=== PATIENT | female | born 1980 | race Caucasian/White ===

== ENCOUNTER 2017-05-25 21:25 | Emergency (ER) | payer OTHER ==
[2017-05-25] MEDS ORDERED: SODIUM CHLORIDE 0.9% 1,000 ML IV STA (21:50)
[2017-05-25] MEDS ORDERED: FAMOTIDINE 20 MG/2 ML VIAL IV STA (21:50)
[2017-05-25] MEDS ORDERED: METOCLOPRAMIDE 5 MG/ML 2 ML VIAL IVP STA (21:50)
--- NOTE | 2017-05-25 21:54 | ED ---
Abdominal Pain HPI - General Chief Complaint: Abdominal Pain Stated Complaint: Vomiting/Abd Pain Time Seen by Provider: 05/25/17 21:38 Source: patient Mode of arrival: wheelchair Limitations: no limitations - History of Present Illness Initial Comments: She is a 37-year-old woman who states she has a history of intermittent gastroparesis and presents because she believes this is flaring up again. She states that things started around 8 this morning when she began vomiting. She then also started having some periumbilical pain that is somewhat cramping, somewhat burning. She has had multiple rounds of vomiting. She states that she usually takes Reglan and some other medications that she was not able to remember at the moment. She states she has been out of medication for about 3 months as she doesn't have insurance and hasn't been able see the physician. Patient denies any hematemesis. Denies change in bowel movements or urination. States that symptoms are identical to her previous flareups. MD Complaint: abdominal pain Onset/Timin -: days(s) Location: periumbilical Radiation: none Severity: moderate Quality: cramping, burning Consistency: constant Improves With: nothing Worsens With: nothing Associated Symptoms: nausea, vomiting - Related Data Previous Rx's Medication Instructions Recorded Dicyclomine [Bentyl] 20 mg PO QID #15 tablet 05/26/17 Metoclopramide [Reglan] 10 mg PO Q6H PRN #16 tab 05/26/17 Allergies Allergy/AdvReac Type Severity Reaction Status Date / Time No Known Allergies Allergy Verified 05/25/17 21:57 Review of Systems ROS Statement: Those systems with pertinent positive or pertinent negative responses have been documented in the HPI. ROS Other: All systems not noted in ROS Statement are negative. Constitutional: Denies: fever, chills Respiratory: Denies: cough, dyspnea Cardiovascular: Denies: chest pain, palpitations, edema Gastrointestinal: Reports: abdominal pain, nausea, vomiting. Denies: diarrhea, constipation, hematemesis, melena, hematochezia Genitourinary: Denies: dysuria, hematuria Musculoskeletal: Denies: back pain Skin: Denies: rash Neurological: Denies: headache, weakness, numbness Past Medical History Past Medical History: GERD/Reflux, Hyperlipidemia, Musculoskeletal Disorder, Neurologic Disorder Additional Past Medical History / Comment(s): herniated disc, gastritis, gastroparesis, migraines, esophageal tears, History of Any Multi-Drug Resistant Organisms: None Reported Past Surgical History: Appendectomy, Tubal Ligation Additional Past Surgical History / Comment(s): Appendectomy, tubal ligation, EGD. Past Psychological History: Anxiety, Depression Smoking Status: Current every day smoker Past Alcohol Use History: None Reported Past Drug Use History: Marijuana - Past Family History Mother Family Medical History: Cancer (Mother is 60-year-old has history of breast cancer and hypothyroidism.) Father Family Medical History: No Reported History (Father at age 54 from alcoholism and also has bipolar disorder.) Brother(s) Family Medical History: Neurologic Disorder (Patient has 2 brothers one of them with brain surgery.) Sister(s) Family Medical History: No Reported History (Patient has 2 sisters and one half- sister who was involved in a motor vehicle accident) Son(s) Family Medical History: No Reported History (Patient has 2 sons no major medical problems) Daughter(s) Family Medical History: No Reported History (Patient has one daughter no major medical problems) General Exam Limitations: no limitations General appearance: alert, anxious Head exam: Present: atraumatic, normocephalic Eye exam: Present: normal appearance. Absent: scleral icterus, conjunctival injection ENT exam: Present: normal oropharynx Neck exam: Present: normal inspection Respiratory exam: Present: normal lung sounds bilaterally. Absent: respiratory distress, wheezes, rales, rhonchi, stridor Cardiovascular Exam: Present: regular rate, normal rhythm, normal heart sounds. Absent: systolic murmur, diastolic murmur, rubs, gallop GI/Abdominal exam: Present: soft. Absent: distended, tenderness, guarding, rebound, rigid, mass, pulsatile mass, hernia Extremities exam: Present: normal inspection, normal capillary refill. Absent: pedal edema, calf tenderness Back exam: Present: normal inspection. Absent: CVA tenderness (R), CVA tenderness (L) Skin exam: Present: warm, dry, intact, normal color. Absent: rash, cyanosis, diaphoretic, erythema, petechiae, pallor, mottled Course Vital Signs 05/25/17 05/25/17 05/26/17 21:30 23:14 00:17 Temperature 97.1 F L 97.1 F L 97 F L Pulse Rate 70 60 78 Respiratory 24 18 18 Rate Blood Pressure 116/81 137/75 134/75 O2 Sat by Pulse 98 96 95 Oximetry Medical Decision Making - Lab Data Result diagrams: 05/25/17 21:50 05/25/17 21:50 Lab Results 05/25/17 05/25/17 05/25/17 Range/Units 21:50 21:50 22:30 WBC 9.5 (3.8-10.6) k/uL RBC 4.13 (3.80-5.40) m/uL Hgb 14.2 (11.4-16.0) gm/dL Hct 39.6 (34.0-46.0) % MCV 96.0 (80.0-100.0) fL MCH 34.4 (25.0-35.0) pg MCHC 35.8 (31.0-37.0) g/dL RDW 12.2 (11.5-15.5) % Plt Count 385 (150-450) k/uL Neutrophils % 84 % Lymphocytes % 12 % Monocytes % 3 % Eosinophils % 0 % Basophils % 0 % Neutrophils # 8.0 H (1.3-7.7) k/uL Lymphocytes # 1.1 (1.0-4.8) k/uL Monocytes # 0.3 (0-1.0) k/uL Eosinophils # 0.0 (0-0.7) k/uL Basophils # 0.0 (0-0.2) k/uL Sodium 143 (137-145) mmol/L Potassium 3.8 (3.5-5.1) mmol/L Chloride 107 (98-107) mmol/L Carbon Dioxide 20 L (22-30) mmol/L Anion Gap 16 mmol/L BUN 7 (7-17) mg/dL Creatinine 0.57 (0.52-1.04) mg/dL Est GFR (MDRD) Af Amer >60 (>60 ml/min/1.73 sqM) Est GFR (MDRD) Non-Af >60 (>60 ml/min/1.73 sqM) Glucose 158 H (74-99) mg/dL Calcium 10.4 H (8.4-10.2) mg/dL Total Bilirubin 1.0 (0.2-1.3) mg/dL AST 17 (14-36) U/L ALT 15 (9-52) U/L Alkaline Phosphatase 80 (38-126) U/L Total Protein 8.1 (6.3-8.2) g/dL Albumin 4.9 (3.5-5.0) g/dL Amylase 40 (30-110) U/L Lipase 26 (23-300) U/L Urine Color Urine Appearance (Clear) Urine pH (5.0-8.0) Ur Specific [place] (1.001-1.035) Urine Protein (Negative) Urine Glucose (UA) (Negative) Urine Ketones (Negative) Urine Blood (Negative) Urine Nitrite (Negative) Urine Bilirubin (Negative) Urine Urobilinogen (<2.0) mg/dL Ur Leukocyte Esterase (Negative) Urine RBC (0-5) /hpf Urine WBC (0-5) /hpf Ur Squamous Epith Cells (0-4) /hpf Urine Bacteria (None) /hpf Granular Casts (0) /lpf Urine Mucus (None) /hpf Urine HCG, Qual Not Detected (Not Detectd) 05/25/17 Range/Units 22:30 WBC (3.8-10.6) k/uL RBC (3.80-5.40) m/uL Hgb (11.4-16.0) gm/dL Hct (34.0-46.0) % MCV (80.0-100.0) fL MCH (25.0-35.0) pg MCHC (31.0-37.0) g/dL RDW (11.5-15.5) % Plt Count (150-450) k/uL Neutrophils % % Lymphocytes % % Monocytes % % Eosinophils % % Basophils % % Neutrophils # (1.3-7.7) k/uL Lymphocytes # (1.0-4.8) k/uL Monocytes # (0-1.0) k/uL Eosinophils # (0-0.7) k/uL Basophils # (0-0.2) k/uL Sodium (137-145) mmol/L Potassium (3.5-5.1) mmol/L Chloride (98-107) mmol/L Carbon Dioxide (22-30) mmol/L Anion Gap mmol/L BUN (7-17) mg/dL Creatinine (0.52-1.04) mg/dL Est GFR (MDRD) Af Amer (>60 ml/min/1.73 sqM) Est GFR (MDRD) Non-Af (>60 ml/min/1.73 sqM) Glucose (74-99) mg/dL Calcium (8.4-10.2) mg/dL Total Bilirubin (0.2-1.3) mg/dL AST (14-36) U/L ALT (9-52) U/L Alkaline Phosphatase (38-126) U/L Total Protein (6.3-8.2) g/dL Albumin (3.5-5.0) g/dL Amylase (30-110) U/L Lipase (23-300) U/L Urine Color Yellow Urine Appearance Turbid H (Clear) Urine pH 6.0 (5.0-8.0) Ur Specific [place] 1.024 (1.001-1.035) Urine Protein 2+ H (Negative) Urine Glucose (UA) Trace H (Negative) Urine Ketones 4+ H (Negative) Urine Blood Small H (Negative) Urine Nitrite Negative (Negative) Urine Bilirubin Negative (Negative) Urine Urobilinogen 3.0 (<2.0) mg/dL Ur Leukocyte Esterase Negative (Negative) Urine RBC 16 H (0-5) /hpf Urine WBC 4 (0-5) /hpf Ur Squamous Epith Cells 51 H (0-4) /hpf Urine Bacteria Rare H (None) /hpf Granular Casts 46 (0) /lpf Urine Mucus Many H (None) /hpf Urine HCG, Qual (Not Detectd) Disposition Clinical Impression: Abdominal pain, Gastroparesis Disposition: HOME SELF-CARE Condition: Good Instructions: Gastroparesis (ED) Prescriptions: Dicyclomine [Bentyl] 20 mg PO QID #15 tablet Metoclopramide [Reglan] 10 mg PO Q6H PRN #16 tab PRN Reason: Vomiting Referrals: None,Stated [Primary Care Provider] - 1-2 days Javid Marcus MD [STAFF PHYSICIAN] - 1-2 days
[2017-05-25 22:06] LABS: Basophils % (A) 0 %; CH 33.7; CHCM 35.3; Eosinophils % (A) 0 %; HCT 39.6 % (34.0-46.0); HDW 2.21; HGB 14.2 gm/dL (11.4-16.0); Luc # (Auto) 0.07; Luc % (Auto) 1; Lymphocytes # (A) 1.1 k/uL (1.0-4.8); Lymphocytes % (A) 12 %; MCH 34.4 pg (25.0-35.0); MCHC 35.8 g/dL (31.0-37.0); Mean Platelet Volume 7.5; Monocytes # (A) 0.3 k/uL (0-1.0); Monocytes % (A) 3 %; Neutrophils % (A) 84 %; RBC 4.13 m/uL (3.80-5.40); RDW 12.2 % (11.5-15.5); WBC 9.5 k/uL (3.8-10.6); WBC (Perox) 9.15
[2017-05-25 22:12] LABS: ALT 15 U/L (9-52); AST 17 U/L (14-36); Alkaline Phosphatase 80 U/L (38-126); Amylase 40 U/L (30-110); Anion Gap 16 mmol/L; Blood Urea Nitrogen 7 mg/dL (7-17); Calcium 10.4 mg/dL (8.4-10.2); Carbon Dioxide 20 mmol/L (22-30); Chloride 107 mmol/L (98-107); Glucose 158 mg/dL (74-99); Non-African American GFR(MDRD) >60 (>60 ml/min/1.73 sqM); Potassium 3.8 mmol/L (3.5-5.1); Sodium 143 mmol/L (137-145); Total Protein 8.1 g/dL (6.3-8.2)
--- NOTE | 2017-05-25 22:27 | XR ---
Exam: XR KUB History: Abdominal pain. Comparison: None provided. Technique: 2 views. Findings: No dilated loop of bowel to suggest obstruction. Mild amount of gas scattered throughout the GI tract. No abnormal soft tissue calcification appreciated. Impression: Nonobstructive bowel gas pattern.
[2017-05-25] MEDS ORDERED: ONDANSETRON 4 MG/2 ML VIAL IVP STA (22:38)
[2017-05-25] MEDS ORDERED: MORPHINE SULFATE 4 MG/ML SYRINGE IV STA (22:38)
[2017-05-25 22:43] LABS: Appearance,Urine Turbid (Clear); Bacteria,Urine Rare /hpf; Bilirubin,Urine Negative (Negative); Glucose,Urine (UA) Trace (Negative); Granular Casts,Urine 46 /lpf (0); Ketones,Urine 4+ (Negative); Leukocyte Esterase,Urine Negative (Negative); Mucus,Urine Many /hpf; Nitrite,Urine Negative (Negative); Particle Count 34093; Protein,Urine 2+ (Negative); RBC,Urine 16 /hpf (0-5); Specific Gravity,Urine 1.024 (1.001-1.035); Squamous Epithelial Cell,Urine 51 /hpf (0-4); UA Billing (MACRO vs. MICRO) MICRO; WBC,Urine 4 /hpf (0-5)
[2017-05-25] MEDS ORDERED: SODIUM CHLORIDE 0.9% 500 ML IV STA (23:08)
[2017-05-25 23:14] VITALS: RESP 18
[2017-05-26] MEDS ORDERED: METOCLOPRAMIDE 5 MG/ML 2 ML VIAL IVP STA (00:03)
[2017-05-26] MEDS ORDERED: SODIUM CHLORIDE 0.9% 500 ML IV STA (00:03)
[2017-05-26] MEDS ORDERED: MORPHINE SULFATE 4 MG/ML SYRINGE IV STA (00:03)
[2017-05-26 01:29] VITALS: BP 118/69; PULSE 61; TEMP 97.7
== END 2017-05-26 01:27 | disposition home or self-care (01) ==
LOC: EC 21:25
DX: K31.84 Gastroparesis (principal); R11.2 Nausea with vomiting, unspecified; F17.200 Nicotine dependence, unspecified, uncomplicated
CPT/HCPCS: 36415; 80053; 82150; 83690; 85025; 81001; 81025; 74000; 99284; 96374; 96375 ×3; 96376 ×2; 96360; 96361 ×3; J2270 ×2; J2765 ×2; J2405

== ENCOUNTER 2018-07-17 14:52 | Emergency (ER) | payer OTHER ==
[2018-07-17] MEDS ORDERED: ONDANSETRON 4 MG/2 ML VIAL IVP STA ×2 (15:04→17:17)
[2018-07-17] MEDS ORDERED: SODIUM CHLORIDE 0.9% 1,000 ML IV STA (15:04)
[2018-07-17] MEDS ORDERED: METOCLOPRAMIDE 5 MG/ML 2 ML VIAL IVP STA ×2 (15:12→19:56)
[2018-07-17] MEDS ORDERED: diphenhydrAMINE 50 MG/ML 1 ML VIAL IVP STA (15:12)
[2018-07-17] MEDS ORDERED: HYDROmorphone 0.5 MG/0.5 ML SYRINGE IVP STA (15:12)
--- NOTE | 2018-07-17 15:14 | ED ---
Abdominal Pain HPI - General Chief Complaint: Abdominal Pain Stated Complaint: abd pain Time Seen by Provider: 07/17/18 15:04 Source: patient, RN notes reviewed Mode of arrival: ambulatory Limitations: no limitations - History of Present Illness Initial Comments: 38-year-old female presents emergency Department with chief complaint abdominal pain, nausea vomiting. Patient has a history of this visit gastroparesis and recurrent abdominal pain. Patient states that she does not have insurance currently so she has not seen her pickle maker. Patient states that she' s not any current medications. Denies fevers or chills. She has had some loose stool this morning which is uncommon for her. She denies any melena, hematochezia, hematemesis or coffee-ground emesis. She has no dysuria no hematuria patient's had a prior tubal ligation, appendectomy. Patient states this feels like her typical problem. - Related Data Previous Rx's Medication Instructions Recorded Dicyclomine [Bentyl] 20 mg PO QID #15 tablet 05/26/17 Metoclopramide [Reglan] 10 mg PO Q6H PRN #16 tab 07/17/18 Allergies Allergy/AdvReac Type Severity Reaction Status Date / Time sulfamethoxazole Allergy Unknown Verified 07/17/18 15:00 [From Bactrim] trimethoprim [From Bactrim] Allergy Unknown Verified 07/17/18 15:00 Review of Systems ROS Statement: Those systems with pertinent positive or pertinent negative responses have been documented in the HPI. ROS Other: All systems not noted in ROS Statement are negative. Past Medical History Past Medical History: GERD/Reflux, Hyperlipidemia, Musculoskeletal Disorder, Neurologic Disorder Additional Past Medical History / Comment(s): herniated disc, gastritis, gastroparesis, migraines, esophageal tears, History of Any Multi-Drug Resistant Organisms: None Reported Past Surgical History: Appendectomy, Tubal Ligation Additional Past Surgical History / Comment(s): Appendectomy, tubal ligation, EGD. Past Psychological History: Anxiety, Depression Smoking Status: Current every day smoker Past Alcohol Use History: None Reported Past Drug Use History: Marijuana - Past Family History Mother Family Medical History: Cancer (Mother is 60-year-old has history of breast cancer and hypothyroidism.) Father Family Medical History: No Reported History (Father at age 54 from alcoholism and also has bipolar disorder.) Brother(s) Family Medical History: Neurologic Disorder (Patient has 2 brothers one of them with brain surgery.) Sister(s) Family Medical History: No Reported History (Patient has 2 sisters and one half- sister who was involved in a motor vehicle accident) Son(s) Family Medical History: No Reported History (Patient has 2 sons no major medical problems) Daughter(s) Family Medical History: No Reported History (Patient has one daughter no major medical problems) General Exam Limitations: no limitations General appearance: alert, in no apparent distress Head exam: Present: atraumatic, normocephalic, normal inspection Eye exam: Present: normal appearance, PERRL, EOMI. Absent: scleral icterus, conjunctival injection, periorbital swelling Respiratory exam: Present: normal lung sounds bilaterally. Absent: respiratory distress, wheezes, rales, rhonchi, stridor Cardiovascular Exam: Present: regular rate, normal rhythm, normal heart sounds. Absent: systolic murmur, diastolic murmur, rubs, gallop, clicks GI/Abdominal exam: Present: soft, tenderness (Moderate midabdominal tenderness) , normal bowel sounds. Absent: distended, guarding, rebound, rigid Back exam: Absent: CVA tenderness (R), CVA tenderness (L) Skin exam: Present: warm, dry, intact, normal color. Absent: rash Course Vital Signs 07/17/18 07/17/18 07/17/18 14:58 15:44 16:33 Temperature 97.7 F Pulse Rate 100 66 74 Respiratory 18 18 18 Rate Blood Pressure 126/83 127/74 114/57 O2 Sat by Pulse 96 99 98 Oximetry Medical Decision Making - Medical Decision Making 38-year-old female presented from for abdominal pain nausea vomiting. Patient has not vomited in over 2 hours she is given antiemetics, IV fluids. She does have some mild discomfort. Abdomen is soft. Patient will be discharged with Zofran starter pack and Reglan prescription. Return parameters were discussed. - Lab Data Result diagrams: 07/17/18 15:17 07/17/18 15:17 Lab Results 07/17/18 07/17/18 07/17/18 Range/Units 15:17 15:17 16:42 WBC 9.0 (3.8-10.6) k/uL RBC 4.36 (3.80-5.40) m/uL Hgb 14.0 (11.4-16.0) gm/dL Hct 42.2 (34.0-46.0) % MCV 96.6 (80.0-100.0) fL MCH 32.2 (25.0-35.0) pg MCHC 33.3 (31.0-37.0) g/dL RDW 12.2 (11.5-15.5) % Plt Count 460 H (150-450) k/uL Neutrophils % 82 % Lymphocytes % 13 % Monocytes % 3 % Eosinophils % 1 % Basophils % 0 % Neutrophils # 7.4 (1.3-7.7) k/uL Lymphocytes # 1.2 (1.0-4.8) k/uL Monocytes # 0.3 (0-1.0) k/uL Eosinophils # 0.1 (0-0.7) k/uL Basophils # 0.0 (0-0.2) k/uL Sodium 142 (137-145) mmol/L Potassium 4.1 (3.5-5.1) mmol/L Chloride 108 H (98-107) mmol/L Carbon Dioxide 19 L (22-30) mmol/L Anion Gap 15 mmol/L BUN 10 (7-17) mg/dL Creatinine 0.65 (0.52-1.04) mg/dL Est GFR (CKD-EPI)AfAm >90 (>60 ml/min/1.73 sqM) Est GFR (CKD-EPI)NonAf >90 (>60 ml/min/1.73 sqM) Glucose 135 H (74-99) mg/dL Calcium 10.3 H (8.4-10.2) mg/dL Total Bilirubin 0.6 (0.2-1.3) mg/dL AST 19 (14-36) U/L ALT 26 (9-52) U/L Alkaline Phosphatase 70 (38-126) U/L Total Protein 8.2 (6.3-8.2) g/dL Albumin 4.8 (3.5-5.0) g/dL Amylase 77 (30-110) U/L Lipase 41 (23-300) U/L Urine Color Light [place] Urine Appearance Turbid H (Clear) Urine pH 5.5 (5.0-8.0) Ur Specific [place] 1.025 (1.001-1.035) Urine Protein 1+ H (Negative) Urine Glucose (UA) Trace H (Negative) Urine Ketones 1+ H (Negative) Urine Blood Small H (Negative) Urine Nitrite Negative (Negative) Urine Bilirubin Negative (Negative) Urine Urobilinogen 2.0 (<2.0) mg/dL Ur Leukocyte Esterase Negative (Negative) Urine RBC 15 H (0-5) /hpf Urine WBC 2 (0-5) /hpf Ur Squamous Epith Cells 3 (0-4) /hpf Amorphous Sediment Moderate H (None) /hpf Urine Bacteria Rare H (None) /hpf Urine Mucus Many H (None) /hpf Disposition Clinical Impression: Abdominal pain, Nausea & vomiting Disposition: HOME SELF-CARE Condition: Stable Instructions: Abdominal Pain (ED) Additional Instructions: Please return to the Emergency Department if symptoms worsen or any other concerns. Prescriptions: Metoclopramide [Reglan] 10 mg PO Q6H PRN #16 tab PRN Reason: Vomiting Is patient prescribed a controlled substance at d/c from ED?: No Referrals: Lit Awad MD [STAFF PHYSICIAN] - 1-2 days
[2018-07-17 15:48] LABS: Basophils % (A) 0 %; Eosinophils # (A) 0.1 k/uL (0-0.7); Eosinophils % (A) 1 %; HCT 42.2 % (34.0-46.0); Lymphocytes # (A) 1.2 k/uL (1.0-4.8); Lymphocytes % (A) 13 %; MCH 32.2 pg (25.0-35.0); MCHC 33.3 g/dL (31.0-37.0); MCV 96.6 fL (80.0-100.0); Mean Platelet Volume 6.8; Monocytes # (A) 0.3 k/uL (0-1.0); Monocytes % (A) 3 %; Neutrophils # (A) 7.4 k/uL (1.3-7.7); Neutrophils % (A) 82 %; Platelet Count 460 k/uL (150-450); RBC 4.36 m/uL (3.80-5.40); RDW 12.2 % (11.5-15.5)
[2018-07-17 15:57] LABS: ALT 26 U/L (9-52); AST 19 U/L (14-36); Albumin 4.8 g/dL (3.5-5.0); Alkaline Phosphatase 70 U/L (38-126); Amylase 77 U/L (30-110); Anion Gap 15 mmol/L; Blood Urea Nitrogen 10 mg/dL (7-17); Calcium 10.3 mg/dL (8.4-10.2); Carbon Dioxide 19 mmol/L (22-30); Chloride 108 mmol/L (98-107); Glucose 135 mg/dL (74-99); Lipase 41 U/L (23-300); Potassium 4.1 mmol/L (3.5-5.1); Sodium 142 mmol/L (137-145); Total Bilirubin 0.6 mg/dL (0.2-1.3); Total Protein 8.2 g/dL (6.3-8.2)
--- NOTE | 2018-07-17 16:58 | XR ---
Abdomen HISTORY: Pain and vomiting Frontal view of the abdomen correlated to prior abdomen 05/25/2017 There is no evident bowel obstruction or pneumoperitoneum, limited for evaluation. Lung bases are not included on the exam. There may be some liver enlargement. No pathologic calcification. IMPRESSION: Exam is limited technically. Nonobstructive bowel gas pattern. Follow-up as indicated.
[2018-07-17 17:04] LABS: Amorphous Sediment,Urine Moderate /hpf; Appearance,Urine Turbid (Clear); Bacteria,Urine Rare /hpf; Bilirubin,Urine Negative (Negative); Blood,Urine Small (Negative); Color,Urine Light Orange; Glucose,Urine (UA) Trace (Negative); Ketones,Urine 1+ (Negative); Leukocyte Esterase,Urine Negative (Negative); Mucus,Urine Many /hpf; Nitrite,Urine Negative (Negative); PH, Urine 5.5 (5.0-8.0); Protein,Urine 1+ (Negative); RBC,Urine 15 /hpf (0-5); Specific Gravity,Urine 1.025 (1.001-1.035); Squamous Epithelial Cell,Urine 3 /hpf (0-4); WBC,Urine 2 /hpf (0-5)
[2018-07-17] MEDS ORDERED: KETOROLAC 30 MG/ML 1 ML VIAL IVP STA (17:17)
[2018-07-17] MEDS ORDERED: SODIUM CHLORIDE 0.9% 1,000 ML IV ONE (17:52)
[2018-07-17] MEDS ORDERED: ONDANSETRON 4 MG ODT STARTER PACK 2 TAB BTL PO STA (18:14)
[2018-07-17 20:14] VITALS: BP 119/59; PULSE 89; RESP 18; TEMP 98.2
== END 2018-07-17 20:14 | disposition home or self-care (01) ==
LOC: EC 14:52
DX: R10.9 Unspecified abdominal pain (principal); R11.2 Nausea with vomiting, unspecified; F17.200 Nicotine dependence, unspecified, uncomplicated; Z87.19 Personal history of other diseases of the digestive system; Z90.49 Acquired absence of other specified parts of digestive tract; Z98.51 Tubal ligation status; Z88.1 Allergy status to other antibiotic agents; Z88.2 Allergy status to sulfonamides
CPT/HCPCS: 36415; 80053; 82150; 83690; 85025; 81001; 74018; 99284; 96374; 96375 ×4; 96376; 96361 ×2; J1200; J2765; J2405; J1885; S0119; J1170

== ENCOUNTER 2018-11-16 15:11 | Emergency (ER) | payer OTHER ==
[2018-11-16] MEDS ORDERED: SODIUM CHLORIDE 0.9% 1,000 ML IV STA (15:24)
[2018-11-16] MEDS ORDERED: ONDANSETRON 4 MG/2 ML VIAL IVP STA (15:24)
[2018-11-16] MEDS ORDERED: MORPHINE SULFATE 4 MG/ML SYRINGE IV STA (15:24)
[2018-11-16] MEDS ORDERED: LORazepam 2 MG/ML INJ IV STA (15:24)
[2018-11-16] MEDS ORDERED: FAMOTIDINE 20 MG/2 ML VIAL IV STA (15:25)
--- NOTE | 2018-11-16 15:27 | ED ---
Abdominal Pain HPI - General Chief Complaint: Abdominal Pain Stated Complaint: VOMITING Time Seen by Provider: 11/16/18 15:17 Source: patient Mode of arrival: ambulatory Limitations: no limitations - History of Present Illness Initial Comments: 38-year-old female patient with history significant for gastroparesis, gastritis , and acid reflux presents to the emergency department today for complaints of upper abdominal pain and vomiting. Patient states symptoms started around 7:00 this morning. She states that she has had 4 episodes of diarrhea. Denies any hematemesis. States her pain is located to her midepigastric region is quite severe in nature. Denies any radiation of the pain to her back. Denies any fevers or chills with this. Denies any sick contacts or recent travel. Denies any chest pain or shortness of breath. Patient denies any recent rash, fever, chills, numbness, tingling, dizziness, weakness, hematuria, dysuria, urinary urgency, urinary frequency, headache, visual changes, or any other complaints. - Related Data Previous Rx's Medication Instructions Recorded Dicyclomine [Bentyl] 20 mg PO QID #15 tablet 05/26/17 Metoclopramide [Reglan] 10 mg PO Q6H PRN #16 tab 07/17/18 Allergies Allergy/AdvReac Type Severity Reaction Status Date / Time sulfamethoxazole Allergy Unknown Verified 11/16/18 15:13 [From Bactrim] trimethoprim [From Bactrim] Allergy Unknown Verified 11/16/18 15:13 Review of Systems ROS Statement: Those systems with pertinent positive or pertinent negative responses have been documented in the HPI. ROS Other: All systems not noted in ROS Statement are negative. Past Medical History Past Medical History: GERD/Reflux, Hyperlipidemia, Musculoskeletal Disorder, Neurologic Disorder Additional Past Medical History / Comment(s): herniated disc, gastritis, gastroparesis, migraines, esophageal tears, History of Any Multi-Drug Resistant Organisms: None Reported Past Surgical History: Appendectomy, Tubal Ligation Additional Past Surgical History / Comment(s): Appendectomy, tubal ligation, EGD. Past Psychological History: Anxiety, Depression Smoking Status: Current every day smoker Past Alcohol Use History: None Reported Past Drug Use History: Marijuana - Past Family History Mother Family Medical History: Cancer (Mother is 60-year-old has history of breast cancer and hypothyroidism.) Father Family Medical History: No Reported History (Father at age 54 from alcoholism and also has bipolar disorder.) Brother(s) Family Medical History: Neurologic Disorder (Patient has 2 brothers one of them with brain surgery.) Sister(s) Family Medical History: No Reported History (Patient has 2 sisters and one half- sister who was involved in a motor vehicle accident) Son(s) Family Medical History: No Reported History (Patient has 2 sons no major medical problems) Daughter(s) Family Medical History: No Reported History (Patient has one daughter no major medical problems) General Exam Limitations: no limitations General appearance: alert, in no apparent distress, other (Physical well- developed, well-nourished adult female patient in no acute distress. Vital signs upon presentation are temperature 98.0F, pulse 85, respirations 18, blood pressure 135/86, pulse ox 97% on room air.) Eye exam: Present: normal appearance, PERRL, EOMI. Absent: scleral icterus, conjunctival injection, periorbital swelling ENT exam: Present: normal exam, normal oropharynx, mucous membranes moist Respiratory exam: Present: normal lung sounds bilaterally. Absent: respiratory distress, wheezes, rales, rhonchi, stridor Cardiovascular Exam: Present: regular rate, normal rhythm, normal heart sounds. Absent: systolic murmur, diastolic murmur, rubs, gallop, clicks GI/Abdominal exam: Present: soft, tenderness (Midepigastric tenderness), normal bowel sounds. Absent: distended, guarding, rebound, rigid Neurological exam: Present: alert, oriented X3, CN II-XII intact Psychiatric exam: Present: normal affect, normal mood Skin exam: Present: warm, dry, intact, normal color. Absent: rash Course Vital Signs 11/16/18 11/16/18 11/16/18 15:14 17:00 17:50 Temperature 98 F 98.7 F Pulse Rate 85 81 Respiratory 18 16 Rate Blood Pressure 135/86 124/78 120/81 O2 Sat by Pulse 97 95 94 L Oximetry 11/16/18 11/16/18 18:03 19:59 Temperature 97.6 F Pulse Rate 61 71 Respiratory 16 18 Rate Blood Pressure 148/89 130/77 O2 Sat by Pulse 99 98 Oximetry Medical Decision Making - Medical Decision Making 19-year-old female patient presents past medical history significant for chronic abdominal pain, gastroparesis, and gastritis presented to the emergency department today for evaluation of midepigastric abdominal pain and vomiting. Physical examination did reveal some midepigastric tenderness. Patient reports that she does have frequent episodes like this last one was about a month ago. Patient states that she has been to other hospitals for similar symptoms and has had ultrasound and CAT scans and they are never able to find anything. Patient states usually receives medication and is discharged. Labs reviewed and were unremarkable. KUB x-ray of the abdomen showed no acute intra- abdominal process. Patient was given both antiemetic and pain medications here in the department. Upon reevaluation states she is feeling better. She will be discharged home at this time to follow-up with her primary care physician or organ recovery coordinator for further evaluation. She is instructed to start with clear liquid diet and advance as tolerated. Return parameters were discussed in detail. She verbalizes understanding and agrees with this plan. - Lab Data Result diagrams: 11/16/18 16:04 11/16/18 16:04 Lab Results 11/16/18 11/16/18 11/16/18 Range/Units 16:00 16:04 16:04 WBC 9.0 (3.8-10.6) k/uL RBC 4.44 (3.80-5.40) m/uL Hgb 14.3 (11.4-16.0) gm/dL Hct 43.5 (34.0-46.0) % MCV 98.1 (80.0-100.0) fL MCH 32.3 (25.0-35.0) pg MCHC 32.9 (31.0-37.0) g/dL RDW 12.2 (11.5-15.5) % Plt Count 386 (150-450) k/uL Neutrophils % 77 % Lymphocytes % 17 % Monocytes % 4 % Eosinophils % 1 % Basophils % 0 % Neutrophils # 6.9 (1.3-7.7) k/uL Lymphocytes # 1.5 (1.0-4.8) k/uL Monocytes # 0.4 (0-1.0) k/uL Eosinophils # 0.1 (0-0.7) k/uL Basophils # 0.0 (0-0.2) k/uL Sodium 144 (137-145) mmol/L Potassium 4.3 (3.5-5.1) mmol/L Chloride 109 H (98-107) mmol/L Carbon Dioxide 20 L (22-30) mmol/L Anion Gap 15 mmol/L BUN 8 (7-17) mg/dL Creatinine 0.61 (0.52-1.04) mg/dL Est GFR (CKD-EPI)AfAm >90 (>60 ml/min/1.73 sqM) Est GFR (CKD-EPI)NonAf >90 (>60 ml/min/1.73 sqM) Glucose 122 H (74-99) mg/dL Calcium 10.2 (8.4-10.2) mg/dL Total Bilirubin 0.7 (0.2-1.3) mg/dL AST 21 (14-36) U/L ALT 18 (9-52) U/L Alkaline Phosphatase 68 (38-126) U/L Total Protein 8.2 (6.3-8.2) g/dL Albumin 4.7 (3.5-5.0) g/dL Amylase 59 (30-110) U/L Lipase 45 (23-300) U/L Urine Color Yellow Urine Appearance Cloudy H (Clear) Urine pH 6.0 (5.0-8.0) Ur Specific [place] 1.029 (1.001-1.035) Urine Protein 1+ H (Negative) Urine Glucose (UA) Negative (Negative) Urine Ketones 2+ H (Negative) Urine Blood Small H (Negative) Urine Nitrite Negative (Negative) Urine Bilirubin Negative (Negative) Urine Urobilinogen 2.0 (<2.0) mg/dL Ur Leukocyte Esterase Negative (Negative) Urine RBC 17 H (0-5) /hpf Urine WBC 3 (0-5) /hpf Ur Squamous Epith Cells 20 H (0-4) /hpf Urine Mucus Many H (None) /hpf - Radiology Data Radiology results: report reviewed, image reviewed Two-view x-ray of the abdomen is obtained. There is no sign of intestinal obstruction or pneumoperitoneum. Fecal pattern is normal. Lung bases are clear. There are no pathologic calcifications over the kidneys. There is no sign of a mass. Impression by Dr. Powell shows nonacute abdomen with no change. Disposition Clinical Impression: Chronic abdominal pain, Chronic vomiting Disposition: HOME SELF-CARE Condition: Good Instructions: Acute Nausea and Vomiting (ED), Abdominal Pain (ED) Additional Instructions: Start with clear liquid diet and advance as tolerated. Take all medications as directed for symptom control. Follow-up with your primary care physician for recheck in 1-2 days. Return immediately for any new, worsening, or concerning symptoms per Is patient prescribed a controlled substance at d/c from ED?: No Referrals: None,Stated [Primary Care Provider] - 1-2 days Time of Disposition: 19:16
[2018-11-16 16:23] LABS: Basophils % (A) 0 %; Eosinophils # (A) 0.1 k/uL (0-0.7); Eosinophils % (A) 1 %; HCT 43.5 % (34.0-46.0); HGB 14.3 gm/dL (11.4-16.0); Lymphocytes # (A) 1.5 k/uL (1.0-4.8); Lymphocytes % (A) 17 %; MCH 32.3 pg (25.0-35.0); MCHC 32.9 g/dL (31.0-37.0); MCV 98.1 fL (80.0-100.0); Mean Platelet Volume 7.1; Monocytes # (A) 0.4 k/uL (0-1.0); Monocytes % (A) 4 %; Neutrophils # (A) 6.9 k/uL (1.3-7.7); Neutrophils % (A) 77 %; Platelet Count 386 k/uL (150-450); RBC 4.44 m/uL (3.80-5.40); RDW 12.2 % (11.5-15.5)
[2018-11-16 16:29] LABS: Appearance,Urine Cloudy (Clear); Bilirubin,Urine Negative (Negative); Blood,Urine Small (Negative); Color,Urine Yellow; Glucose,Urine (UA) Negative (Negative); Ketones,Urine 2+ (Negative); Leukocyte Esterase,Urine Negative (Negative); Mucus,Urine Many /hpf; Nitrite,Urine Negative (Negative); Protein,Urine 1+ (Negative); RBC,Urine 17 /hpf (0-5); Specific Gravity,Urine 1.029 (1.001-1.035); Squamous Epithelial Cell,Urine 20 /hpf (0-4); WBC,Urine 3 /hpf (0-5)
--- NOTE | 2018-11-16 16:32 | XR ---
EXAMINATION TYPE: XR KUB DATE OF EXAM: 11/16/2018 COMPARISON: 07/17/2018 HISTORY: Abdominal pain TECHNIQUE: 2 views of the right FINDINGS: There is no sign of intestinal obstruction or pneumoperitoneum. Fecal pattern is normal. Nery ng bases are clear. There are no pathologic calcifications over the kidneys. There is no sign of a ma ss. IMPRESSION: Nonacute abdomen. No change.
[2018-11-16 16:35] LABS: ALT 18 U/L (9-52); AST 21 U/L (14-36); Albumin 4.7 g/dL (3.5-5.0); Alkaline Phosphatase 68 U/L (38-126); Amylase 59 U/L (30-110); Anion Gap 15 mmol/L; Blood Urea Nitrogen 8 mg/dL (7-17); Calcium 10.2 mg/dL (8.4-10.2); Carbon Dioxide 20 mmol/L (22-30); Chloride 109 mmol/L (98-107); Glucose 122 mg/dL (74-99); Lipase 45 U/L (23-300); Potassium 4.3 mmol/L (3.5-5.1); Sodium 144 mmol/L (137-145); Total Bilirubin 0.7 mg/dL (0.2-1.3); Total Protein 8.2 g/dL (6.3-8.2)
[2018-11-16] MEDS ORDERED: HYDROmorphone 0.5 MG/0.5 ML SYRINGE IVP STA (18:21)
[2018-11-16] MEDS ORDERED: KETOROLAC 30 MG/ML 1 ML VIAL IVP STA (18:21)
[2018-11-16 19:59] VITALS: BP 130/77; PULSE 71; RESP 18; TEMP 97.6
== END 2018-11-16 19:58 | disposition home or self-care (01) ==
LOC: EC 15:11
DX: R10.13 Epigastric pain (principal); G89.29 Other chronic pain; R11.10 Vomiting, unspecified; F17.200 Nicotine dependence, unspecified, uncomplicated; Z87.19 Personal history of other diseases of the digestive system; Z88.2 Allergy status to sulfonamides; Z90.49 Acquired absence of other specified parts of digestive tract
CPT/HCPCS: 36415; 80053; 82150; 83690; 85025; 81001; 74018; 99284; 96374; 96375 ×5; 96361; J2060; J2270; J2405; J1885; J1170

== ENCOUNTER 2019-06-08 14:34 | Observation (INO) | payer MEDICARE, OTHER ==
--- NOTE | 2019-06-08 15:22 | ED ---
General Adult HPI - General Chief complaint: Nausea/Vomiting/Diarrhea Stated complaint: Abdominal Pain Time Seen by Provider: 06/08/19 15:11 Source: patient, RN notes reviewed Mode of arrival: ambulatory Limitations: no limitations - History of Present Illness Initial comments: 39-year-old female with past medical history significant for gastroparesis, gastritis, acid reflux presents to the emergency department for a chief complaint of nausea and vomiting times one day. Patient states this started this morning. States she is also having some stomach cramping. She states she has these exact symptoms some of frequently and usually comes in and receives nausea medication and pain medication which make her feel better. States that it is usually because of her gastroparesis. States she takes Zofran at home for this. Denies diarrhea but does admit to a bowel movement about 4 hours ago. Denies any hematochezia or melena. No hematemesis.Patient has no other complaints at this time including shortness of breath, chest pain, headache, or visual changes. - Related Data Home Medications Medication Instructions Recorded Confirmed Ondansetron [Zofran] 4 - 8 mg PO Q12HR PRN 06/08/19 06/08/19 Allergies Allergy/AdvReac Type Severity Reaction Status Date / Time sulfamethoxazole Allergy Unknown Verified 06/08/19 15:15 [From Bactrim] trimethoprim [From Bactrim] Allergy Unknown Verified 06/08/19 15:15 Review of Systems ROS Statement: Those systems with pertinent positive or pertinent negative responses have been documented in the HPI. ROS Other: All systems not noted in ROS Statement are negative. Past Medical History Past Medical History: GERD/Reflux, Hyperlipidemia, Musculoskeletal Disorder, Neurologic Disorder Additional Past Medical History / Comment(s): herniated disc, gastritis, gastroparesis, migraines, esophageal tears, History of Any Multi-Drug Resistant Organisms: None Reported Past Surgical History: Appendectomy, Tubal Ligation Additional Past Surgical History / Comment(s): Appendectomy, tubal ligation, EGD. Past Psychological History: Anxiety, Depression Smoking Status: Current every day smoker Past Alcohol Use History: None Reported Past Drug Use History: Marijuana - Past Family History Mother Family Medical History: Cancer (Mother is 60-year-old has history of breast cancer and hypothyroidism.) Father Family Medical History: No Reported History (Father at age 54 from alcoholism and also has bipolar disorder.) Brother(s) Family Medical History: Neurologic Disorder (Patient has 2 brothers one of them with brain surgery.) Sister(s) Family Medical History: No Reported History (Patient has 2 sisters and one half- sister who was involved in a motor vehicle accident) Son(s) Family Medical History: No Reported History (Patient has 2 sons no major medical problems) Daughter(s) Family Medical History: No Reported History (Patient has one daughter no major medical problems) General Exam Limitations: no limitations General appearance: alert, in no apparent distress Head exam: Present: atraumatic, normocephalic, normal inspection Eye exam: Present: normal appearance, PERRL, EOMI. Absent: scleral icterus, conjunctival injection, periorbital swelling ENT exam: Present: normal exam, mucous membranes moist Neck exam: Present: normal inspection, full ROM. Absent: tenderness, meningismus, lymphadenopathy Respiratory exam: Present: normal lung sounds bilaterally. Absent: respiratory distress, wheezes, rales, rhonchi, stridor Cardiovascular Exam: Present: regular rate, normal rhythm, normal heart sounds. Absent: systolic murmur, diastolic murmur, rubs, gallop, clicks GI/Abdominal exam: Present: soft, normal bowel sounds. Absent: distended, tenderness (No Significant tenderness noted of the abdomen), guarding, rebound, rigid Neurological exam: Present: alert, oriented X3, CN II-XII intact Psychiatric exam: Present: normal affect, normal mood Course Vital Signs 06/08/19 06/08/19 15:07 18:12 Temperature 97.4 F L Pulse Rate 55 L 74 Respiratory 18 18 Rate Blood Pressure 142/76 116/70 O2 Sat by Pulse 97 99 Oximetry Medical Decision Making - Medical Decision Making 39-year-old female presents to the emergency department for chief complaint of nausea and vomiting. Patient is a history of gastroparesis. States this does frequently happen to her. States she has some abdominal cramping as well. On exam patient has mild diffuse abdominal pain without guarding or rebound but sta saadia that this is consistent with previous episodes. On exam patient does appear somewhat dry. CBC is unremarkable. Her is leukocytosis of 12.7 which is likely secondary to vomiting. CMP does show mild dehydration with a BUN to creatinine ratio of 20. X-ray shows a nonacute abdomen. Patient was given several pain medications as well as antiemetics. However patient continues to vomiting in [facility] emergency department. She is not comfortable going home. Failed by mouth challenge. She will be admitted for intractable nausea and vomiting. - Lab Data Result diagrams: 06/08/19 16:02 06/08/19 16:02 Lab Results 06/08/19 06/08/19 06/08/19 Range/Units 16:02 16:02 16:02 WBC 12.7 H (3.8-10.6) k/uL RBC 4.42 (3.80-5.40) m/uL Hgb 14.0 (11.4-16.0) gm/dL Hct 43.8 (34.0-46.0) % MCV 99.2 (80.0-100.0) fL MCH 31.7 (25.0-35.0) pg MCHC 31.9 (31.0-37.0) g/dL RDW 12.7 (11.5-15.5) % Plt Count 415 (150-450) k/uL Neutrophils % 88 % Lymphocytes % 8 % Monocytes % 2 % Eosinophils % 1 % Basophils % 0 % Neutrophils # 11.1 H (1.3-7.7) k/uL Lymphocytes # 1.1 (1.0-4.8) k/uL Monocytes # 0.3 (0-1.0) k/uL Eosinophils # 0.1 (0-0.7) k/uL Basophils # 0.0 (0-0.2) k/uL Sodium 138 (137-145) mmol/L Potassium 4.9 (3.5-5.1) mmol/L Chloride 108 H (98-107) mmol/L Carbon Dioxide 21 L (22-30) mmol/L Anion Gap 9 mmol/L BUN 12 (7-17) mg/dL Creatinine 0.58 (0.52-1.04) mg/dL Est GFR (CKD-EPI)AfAm >90 (>60 ml/min/1.73 sqM) Est GFR (CKD-EPI)NonAf >90 (>60 ml/min/1.73 sqM) Glucose 121 H (74-99) mg/dL Calcium 10.4 H (8.4-10.2) mg/dL Total Bilirubin 0.4 (0.2-1.3) mg/dL AST 22 (14-36) U/L ALT 9 (9-52) U/L Alkaline Phosphatase 69 (38-126) U/L Total Protein 8.5 H (6.3-8.2) g/dL Albumin 5.1 H (3.5-5.0) g/dL Amylase 68 (30-110) U/L Lipase 33 (23-300) U/L Urine Color Yellow Urine Appearance Cloudy H (Clear) Urine pH 5.5 (5.0-8.0) Ur Specific [place] 1.023 (1.001-1.035) Urine Protein 1+ H (Negative) Urine Glucose (UA) Negative (Negative) Urine Ketones Negative (Negative) Urine Blood Small H (Negative) Urine Nitrite Negative (Negative) Urine Bilirubin Negative (Negative) Urine Urobilinogen <2.0 (<2.0) mg/dL Ur Leukocyte Esterase Negative (Negative) Urine RBC 3 (0-5) /hpf Urine WBC 3 (0-5) /hpf Ur Squamous Epith Cells 5 H (0-4) /hpf Hyaline Casts 10 H (0-2) /lpf Urine Mucus Many H (None) /hpf Urine HCG, Qual (Not Detectd) 06/08/19 Range/Units 16:02 WBC (3.8-10.6) k/uL RBC (3.80-5.40) m/uL Hgb (11.4-16.0) gm/dL Hct (34.0-46.0) % MCV (80.0-100.0) fL MCH (25.0-35.0) pg MCHC (31.0-37.0) g/dL RDW (11.5-15.5) % Plt Count (150-450) k/uL Neutrophils % % Lymphocytes % % Monocytes % % Eosinophils % % Basophils % % Neutrophils # (1.3-7.7) k/uL Lymphocytes # (1.0-4.8) k/uL Monocytes # (0-1.0) k/uL Eosinophils # (0-0.7) k/uL Basophils # (0-0.2) k/uL Sodium (137-145) mmol/L Potassium (3.5-5.1) mmol/L Chloride (98-107) mmol/L Carbon Dioxide (22-30) mmol/L Anion Gap mmol/L BUN (7-17) mg/dL Creatinine (0.52-1.04) mg/dL Est GFR (CKD-EPI)AfAm (>60 ml/min/1.73 sqM) Est GFR (CKD-EPI)NonAf (>60 ml/min/1.73 sqM) Glucose (74-99) mg/dL Calcium (8.4-10.2) mg/dL Total Bilirubin (0.2-1.3) mg/dL AST (14-36) U/L ALT (9-52) U/L Alkaline Phosphatase (38-126) U/L Total Protein (6.3-8.2) g/dL Albumin (3.5-5.0) g/dL Amylase (30-110) U/L Lipase (23-300) U/L Urine Color Urine Appearance (Clear) Urine pH (5.0-8.0) Ur Specific [place] (1.001-1.035) Urine Protein (Negative) Urine Glucose (UA) (Negative) Urine Ketones (Negative) Urine Blood (Negative) Urine Nitrite (Negative) Urine Bilirubin (Negative) Urine Urobilinogen (<2.0) mg/dL Ur Leukocyte Esterase (Negative) Urine RBC (0-5) /hpf Urine WBC (0-5) /hpf Ur Squamous Epith Cells (0-4) /hpf Hyaline Casts (0-2) /lpf Urine Mucus (None) /hpf Urine HCG, Qual Not Detected (Not Detectd) Disposition Clinical Impression: Intractable nausea and vomiting, Dehydration, Gastroparesis Disposition: ADMITTED IP TO THIS [facility] Condition: Fair Is patient prescribed a controlled substance at d/c from ED?: No Referrals: Troy Schwab MD [Primary Care Provider] - 1-2 days Time of Disposition: 18:58
[2019-06-08] MEDS ORDERED: METOCLOPRAMIDE 5 MG/ML 2 ML VIAL IVP STA (15:39)
[2019-06-08] MEDS ORDERED: SODIUM CHLORIDE 0.9% 1,000 ML IV STA (15:39)
[2019-06-08] MEDS ORDERED: diphenhydrAMINE 50 MG/ML 1 ML VIAL IVP STA (15:39)
[2019-06-08] MEDS ORDERED: KETOROLAC 30 MG/ML 1 ML VIAL IVP STA (15:40)
[2019-06-08 16:18] LABS: Basophils % (A) 0 %; Eosinophils # (A) 0.1 k/uL (0-0.7); Eosinophils % (A) 1 %; HCT 43.8 % (34.0-46.0); Lymphocytes # (A) 1.1 k/uL (1.0-4.8); Lymphocytes % (A) 8 %; MCH 31.7 pg (25.0-35.0); MCHC 31.9 g/dL (31.0-37.0); MCV 99.2 fL (80.0-100.0); Mean Platelet Volume 6.9; Monocytes # (A) 0.3 k/uL (0-1.0); Monocytes % (A) 2 %; Neutrophils # (A) 11.1 k/uL (1.3-7.7); Neutrophils % (A) 88 %; Platelet Count 415 k/uL (150-450); RBC 4.42 m/uL (3.80-5.40); RDW 12.7 % (11.5-15.5); WBC 12.7 k/uL (3.8-10.6)
[2019-06-08 16:26] LABS: ALT 9 U/L (9-52); AST 22 U/L (14-36); African American GFR (CKD) >90 (>60 ml/min/1.73 sqM); Albumin 5.1 g/dL (3.5-5.0); Alkaline Phosphatase 69 U/L (38-126); Amylase 68 U/L (30-110); Anion Gap 9 mmol/L; Blood Urea Nitrogen 12 mg/dL (7-17); Calcium 10.4 mg/dL (8.4-10.2); Carbon Dioxide 21 mmol/L (22-30); Chloride 108 mmol/L (98-107); Glucose 121 mg/dL (74-99); Lipase 33 U/L (23-300); Sodium 138 mmol/L (137-145); Total Bilirubin 0.4 mg/dL (0.2-1.3); Total Protein 8.5 g/dL (6.3-8.2)
[2019-06-08 16:31] LABS: Appearance,Urine Cloudy (Clear); Bilirubin,Urine Negative (Negative); Blood,Urine Small (Negative); Color,Urine Yellow; Glucose,Urine (UA) Negative (Negative); Hyaline Casts,Urine 10 /lpf (0-2); Ketones,Urine Negative (Negative); Leukocyte Esterase,Urine Negative (Negative); Mucus,Urine Many /hpf; Nitrite,Urine Negative (Negative); PH, Urine 5.5 (5.0-8.0); Protein,Urine 1+ (Negative); RBC,Urine 3 /hpf (0-5); Specific Gravity,Urine 1.023 (1.001-1.035); Squamous Epithelial Cell,Urine 5 /hpf (0-4); Urobilinogen,Urine <2.0 mg/dL (<2.0); WBC,Urine 3 /hpf (0-5)
[2019-06-08 16:32] LABS: Potassium 4.9 mmol/L (3.5-5.1)
[2019-06-08] MEDS ORDERED: HYDROmorphone 0.5 MG/0.5 ML SYRINGE IVP STA (16:48)
--- NOTE | 2019-06-08 17:37 | XR ---
EXAMINATION TYPE: XR KUB DATE OF EXAM: 06/08/2019 COMPARISON: 11/16/2018 HISTORY: Vomiting TECHNIQUE: 2 views upright FINDINGS: There is no sign of intestinal obstruction or pneumoperitoneum. Fecal pattern is normal. Nery ng bases are clear. There are no pathologic calcifications over the kidneys. IMPRESSION: Nonacute abdomen. No change.
[2019-06-08] MEDS ORDERED: ONDANSETRON 4 MG/2 ML VIAL IVP STA (17:58)
[2019-06-08] MEDS ORDERED: FAMOTIDINE 20 MG/2 ML VIAL IV STA (17:58)
[2019-06-08] MEDS ORDERED: HYDROmorphone 1 MG/ML 1 ML SYRINGE IVP PRN (18:59)
[2019-06-08] MEDS ORDERED: NALOXONE 0.4 MG/ML 1 ML VIAL IV PRN (18:59)
[2019-06-08] MEDS ORDERED: ONDANSETRON 4 MG/2 ML VIAL IVP PRN (18:59)
[2019-06-08] MEDS ORDERED: KETOROLAC 30 MG/ML 1 ML VIAL IVP PRN (18:59)
[2019-06-08] MEDS: SODIUM CHLORIDE 0.9% 1,000 ML IV SCH (19:50)
[2019-06-08 22:10] VITALS: BMI 23.5
[2019-06-09] MEDS: SODIUM CHLORIDE 0.9% 1,000 ML IV SCH ×2 (05:24→11:06)
[2019-06-09 11:35] VITALS: BP 96/52; PULSE 58; RESP 16; TEMP 98.6
[2019-06-09] MEDS ORDERED: PANTOPRAZOLE 40 MG TABLET PO STA (12:49)
--- NOTE | 2019-06-09 13:58 | P.DS ---
Providers Date of admission: 06/08/19 18:34 Attending physician: Etta Valentine Primary care physician: Troy Schwab [facility] Course: As mentioned in HPI Patient Condition at Discharge: Fair Plan - Discharge Summary Discharge Rx Participant: No New Discharge Prescriptions: No Action Ondansetron [Zofran] 4 - 8 mg PO Q12HR PRN PRN Reason: Nausea Discharge Medication List Ondansetron [Zofran] 4 - 8 mg PO Q12HR PRN 06/08/19 [History] Follow up Appointment(s)/Referral(s): Troy Schwab MD [Primary Care Provider] - 3 Days (Patient to call Dr. Schwab's office Thursday morning to schedule follow up appointment. The office is closed at time of discharge. ) Patient Instructions/Handouts: Omeprazole (By mouth), Dehydration (DC), Acute Nausea and Vomiting (DC), Gastroparesis (DC) Discharge Disposition: HOME SELF-CARE
--- NOTE | 2019-06-09 13:58 | P.HPIM ---
History of Present Illness 39-year-old pleasant female with history of gastroparesis and gastroesophageal reflux disease came in with compensative nausea vomiting crampy abdominal pain moderate severity all of which resolved at this time patient is clinically doing well wanted to go home. Patient will be started on diet if she tolerates patient will be discharged today patient antibiotics fever chills patient and dysuria. Patient was on IV fluids. Patient denied any hematochezia patient denied any hematemesis denied any diarrhea. Review of Systems REVIEW OF SYSTEMS: CONSTITUTIONAL: No fever, no malaise, no fatigue. HEENT: No recent visual problems or hearing problems. Denied any sore throat. CARDIOVASCULAR: No chest pain, orthopnea, PND, no palpitations, no syncope. PULMONARY: No shortness of breath, no cough, no hemoptysis. GASTROINTESTINAL: No diarrhea NEUROLOGICAL: No headaches, no weakness, no numbness. HEMATOLOGICAL: Denies any bleeding or petechiae. GENITOURINARY: Denies any burning micturition, frequency, or urgency. MUSCULOSKELETAL/RHEUMATOLOGICAL: Denies any joint pain, swelling, or any muscle pain. ENDOCRINE: Denies any polyuria or polydipsia. The rest of the 14-point review of systems is negative. Past Medical History Past Medical History: GERD/Reflux, Hyperlipidemia, Musculoskeletal Disorder, Neurologic Disorder Additional Past Medical History / Comment(s): herniated disc, gastritis, gastroparesis, migraines, esophageal tears, History of Any Multi-Drug Resistant Organisms: None Reported Past Surgical History: Appendectomy, Tubal Ligation Additional Past Surgical History / Comment(s): Appendectomy, tubal ligation, EGD, colonscopy. Past Anesthesia/Blood Transfusion Reactions: No Reported Reaction Additional Past Anesthesia/Blood Transfusion Reaction / Comment(s): never had blood transfusion. Past Psychological History: Anxiety, Depression Smoking Status: Current every day smoker Past Alcohol Use History: None Reported Past Drug Use History: Marijuana - Past Family History Mother Family Medical History: Cancer Father Family Medical History: No Reported History Brother(s) Family Medical History: Neurologic Disorder Sister(s) Family Medical History: No Reported History Son(s) Family Medical History: No Reported History Daughter(s) Family Medical History: No Reported History Medications and Allergies Home Medications Medication Instructions Recorded Confirmed Type Ondansetron [Zofran] 4 - 8 mg PO Q12HR PRN 06/08/19 06/08/19 History Omeprazole [PriLOSEC] 40 mg PO PIERRE-BRKFST #14 capsule. 06/09/19 Rx Allergies Allergy/AdvReac Type Severity Reaction Status Date / Time sulfamethoxazole Allergy Unknown Verified 06/08/19 15:15 [From Bactrim] trimethoprim [From Bactrim] Allergy Unknown Verified 06/08/19 15:15 Physical Exam Vitals: Vital Signs Temp Pulse Pulse Resp BP BP Pulse Ox 06/09/19 11:34 98.6 F 58 L 16 96/52 96 06/09/19 04:57 98.2 F 98 18 100/60 98 06/08/19 21:14 98.6 F 70 18 122/60 97 06/08/19 19:05 79 18 118/66 98 06/08/19 18:12 74 18 116/70 99 06/08/19 15:07 97.4 F L 55 L 18 142/76 97 Intake and Output 06/08/19 06/09/19 06/09/19 22:59 06:59 14:59 Intake Total 960 Output Total 60 Balance -60 960 Intake: Intake, IV Titration 960 Amount Sodium Chloride 0.9% 1, 960 000 ml @ 120 mls/hr IV . Q8H20M [facility] Rx#:[id number] Output: Emesis 60 Other: Voiding Method Toilet Toilet # Voids 0 0 Weight 68.039 kg PHYSICAL EXAMINATION: GENERAL: The patient is alert and oriented x3, not in any acute distress. Well developed, well nourished. HEENT: Pupils are round and equally reacting to light. EOMI. No scleral icterus. No conjunctival pallor. Normocephalic, atraumatic. No pharyngeal erythema. No thyromegaly. CARDIOVASCULAR: S1 and S2 present. No murmurs, rubs, or gallops. PULMONARY: Chest is clear to auscultation, no wheezing or crackles. ABDOMEN: Soft, nontender, nondistended, normoactive bowel sounds. No palpable organomegaly. MUSCULOSKELETAL: No joint swelling or deformity. EXTREMITIES: No cyanosis, clubbing, or pedal edema. NEUROLOGICAL: Gross neurological examination did not reveal any focal deficits. SKIN: No rashes. Results CBC & Chem 7: 06/08/19 16:02 07/17/19 16:02 Labs: Abnormal Lab Results - Last 24 Hours (Table) 06/08/19 06/08/19 06/08/19 Range/Units 16:02 16:02 16:02 WBC 12.7 H (3.8-10.6) k/uL Neutrophils # 11.1 H (1.3-7.7) k/uL Chloride 108 H (98-107) mmol/L Carbon Dioxide 21 L (22-30) mmol/L Glucose 121 H (74-99) mg/dL Calcium 10.4 H (8.4-10.2) mg/dL Total Protein 8.5 H (6.3-8.2) g/dL Albumin 5.1 H (3.5-5.0) g/dL Urine Appearance Cloudy H (Clear) Urine Protein 1+ H (Negative) Urine Blood Small H (Negative) Ur Squamous Epith Cells 5 H (0-4) /hpf Hyaline Casts 10 H (0-2) /lpf Urine Mucus Many H (None) /hpf Thrombosis Risk Factor Assmnt - Choose All That Apply Any of the Below Risk Factors Present?: No Assessment and Plan Plan: -Nausea vomiting: Secondary to either gastroparesis or viral gastroenteritis although symptoms improved at this time patient will be discharged today. Was on IV fluids, doing well will be discharged today patient received Zofran does have Zofran at home -Leukocytosis reactive without any other signs or symptoms of infection -Metabolic acidosis secondary to hyperchloremia Patient will be discharged today. And tolerate diet
== END 2019-06-09 14:10 | disposition home or self-care (01) ==
LOC: EC 14:34 → 3NMEDONC 18:34
PROVIDERS: ADMIT Hospitalist; ATTEND Hospitalist
DX: R11.2 Nausea with vomiting, unspecified (principal); E86.0 Dehydration; D72.829 Elevated white blood cell count, unspecified; E87.2 Acidosis; E87.8 Other disorders of electrolyte and fluid balance, not elsewhere classified; Z79.899 Other long term (current) drug therapy; Z88.2 Allergy status to sulfonamides
CPT/HCPCS: 96374; 96375; 99285; 36415; 80053; 82150; 83690; 85025; 81001; 81025; 74018; G0378 ×2; J1200; J2765; J2405 ×2; J1885; J1170 ×2

== ENCOUNTER 2019-09-09 08:15 | Emergency (ER) | payer MEDICARE ==
[2019-09-09 08:22] VITALS: RESP 18
[2019-09-09] MEDS ORDERED: PANTOPRAZOLE 40 MG/10 ML VIAL IVP STA (08:28)
[2019-09-09] MEDS ORDERED: SODIUM CHLORIDE 0.9% 1,000 ML IV STA ×2 (08:28)
[2019-09-09] MEDS ORDERED: MORPHINE SULFATE 4 MG/ML SYRINGE IV STA (08:28)
[2019-09-09] MEDS ORDERED: METOCLOPRAMIDE 5 MG/ML 2 ML VIAL IVP STA (08:28)
--- NOTE | 2019-09-09 08:33 | ED ---
General Adult HPI - General Chief complaint: Nausea/Vomiting/Diarrhea Stated complaint: vomiting/abdominal pain Time Seen by Provider: 09/09/19 08:20 Source: patient, RN notes reviewed, old records reviewed Mode of arrival: ambulatory Limitations: no limitations - History of Present Illness Initial comments: This is a 39-year-old female, presents emergency department today with chief complaint of 1 day of nausea, vomiting, and epigastric abdominal pain. Patient reports that she has had some blood tinged vomit. Patient reports she has history of gastroparesis. Patient states that she does not have a GI doctor at this time. Patient states that she's had no specific fevers or chills. Denies any dysuria, hematuria, or changes in stools, and reports a firm bowel movement yesterday. - Related Data Home Medications Medication Instructions Recorded Confirmed Ondansetron [Zofran] 4 - 8 mg PO Q12HR PRN 06/08/19 09/09/19 Previous Rx's Medication Instructions Recorded Dicyclomine [Bentyl] 10 mg PO TID #12 capsule 09/09/19 Allergies Allergy/AdvReac Type Severity Reaction Status Date / Time sulfamethoxazole Allergy Unknown Verified 09/09/19 08:30 [From Bactrim] trimethoprim [From Bactrim] Allergy Unknown Verified 09/09/19 08:30 Review of Systems ROS Statement: Those systems with pertinent positive or pertinent negative responses have been documented in the HPI. ROS Other: All systems not noted in ROS Statement are negative. Past Medical History Past Medical History: GERD/Reflux, Hyperlipidemia, Musculoskeletal Disorder, Neurologic Disorder Additional Past Medical History / Comment(s): herniated disc, gastritis, gastroparesis, migraines, esophageal tears, History of Any Multi-Drug Resistant Organisms: None Reported Past Surgical History: Appendectomy, Tubal Ligation Additional Past Surgical History / Comment(s): Appendectomy, tubal ligation, EGD. Past Anesthesia/Blood Transfusion Reactions: No Reported Reaction Additional Past Anesthesia/Blood Transfusion Reaction / Comment(s): never had blood transfusion. Past Psychological History: Anxiety, Depression Smoking Status: Current every day smoker Past Alcohol Use History: None Reported Past Drug Use History: Marijuana - Past Family History Mother Family Medical History: Cancer (Mother is 60-year-old has history of breast cancer and hypothyroidism.) Father Family Medical History: No Reported History (Father at age 54 from alcoholism and also has bipolar disorder.) Brother(s) Family Medical History: Neurologic Disorder (Patient has 2 brothers one of them with brain surgery.) Sister(s) Family Medical History: No Reported History (Patient has 2 sisters and one half- sister who was involved in a motor vehicle accident) Son(s) Family Medical History: No Reported History (Patient has 2 sons no major medical problems) Daughter(s) Family Medical History: No Reported History (Patient has one daughter no major medical problems) General Exam - General Exam Comments Initial Comments: 39-year-old female. Alert and oriented. No distress. Limitations: no limitations General appearance: alert, in no apparent distress Head exam: Present: atraumatic, normocephalic, normal inspection Eye exam: Present: normal appearance, PERRL, EOMI. Absent: scleral icterus, conjunctival injection, periorbital swelling ENT exam: Present: normal exam, mucous membranes moist Neck exam: Present: normal inspection. Absent: tenderness, meningismus, lymphadenopathy Respiratory exam: Present: normal lung sounds bilaterally. Absent: respiratory distress, wheezes, rales, rhonchi, stridor Cardiovascular Exam: Present: regular rate, normal rhythm, normal heart sounds. Absent: systolic murmur, diastolic murmur, rubs, gallop, clicks GI/Abdominal exam: Present: soft, tenderness (Epigastric tenderness), normal bowel sounds. Absent: distended, guarding, rebound, rigid Extremities exam: Present: normal inspection, full ROM, normal capillary refill. Absent: tenderness, pedal edema, joint swelling, calf tenderness Back exam: Present: normal inspection Neurological exam: Present: alert, oriented X3, CN II-XII intact Psychiatric exam: Present: normal affect, normal mood Skin exam: Present: warm, dry, intact, normal color. Absent: rash Course Vital Signs 09/09/19 08:18 Pulse Rate 97 Respiratory 18 Rate Blood Pressure 134/82 O2 Sat by Pulse 96 Oximetry Medical Decision Making - Medical Decision Making This is a 39-year-old female presents emergency room today with nausea and vomiting starting last night. She has history of gastroparesis is a flare up. She denies some blood-tinged sputum in her vomit. Patient has some minimal epigastric tenderness on exam. Lab work was reviewed. Evidence of dehydration with an urine sample and positive ketones. Patient's lab work otherwise is unremarkable. Patient KUB shows normal bowel gas pattern. Patient was reevaluated after nausea medicine and pain medicine and does have improvement of her symptoms. I discussed the Patient needs follow-up with a GI specialist as well as a primary care doctor. All questions were answered and return parameters were discussed. - Lab Data Result diagrams: 09/09/19 08:50 09/09/19 08:50 Lab Results 09/09/19 09/09/19 09/09/19 Range/Units 08:50 08:50 08:50 WBC 14.7 H (3.8-10.6) k/uL RBC 4.36 (3.80-5.40) m/uL Hgb 14.2 (11.4-16.0) gm/dL Hct 43.0 (34.0-46.0) % MCV 98.7 (80.0-100.0) fL MCH 32.6 (25.0-35.0) pg MCHC 33.0 (31.0-37.0) g/dL RDW 12.8 (11.5-15.5) % Plt Count 419 (150-450) k/uL Neutrophils % 88 % Lymphocytes % 7 % Monocytes % 4 % Eosinophils % 1 % Basophils % 0 % Neutrophils # 12.9 H (1.3-7.7) k/uL Lymphocytes # 1.0 (1.0-4.8) k/uL Monocytes # 0.5 (0-1.0) k/uL Eosinophils # 0.1 (0-0.7) k/uL Basophils # 0.0 (0-0.2) k/uL PT (9.0-12.0) sec INR (<1.2) APTT (22.0-30.0) sec Sodium 143 (137-145) mmol/L Potassium 4.3 (3.5-5.1) mmol/L Chloride 107 (98-107) mmol/L Carbon Dioxide 19 L (22-30) mmol/L Anion Gap 17 mmol/L BUN 12 (7-17) mg/dL Creatinine 0.75 (0.52-1.04) mg/dL Est GFR (CKD-EPI)AfAm >90 (>60 ml/min/1.73 sqM) Est GFR (CKD-EPI)NonAf >90 (>60 ml/min/1.73 sqM) Glucose 178 H (74-99) mg/dL Plasma Lactic Acid Jose 2.2 H* (0.7-2.0) mmol/L Calcium 10.6 H (8.4-10.2) mg/dL Total Bilirubin 0.8 (0.2-1.3) mg/dL AST 22 (14-36) U/L ALT 19 (9-52) U/L Alkaline Phosphatase 78 (38-126) U/L Total Protein 8.7 H (6.3-8.2) g/dL Albumin 5.0 (3.5-5.0) g/dL Amylase 58 (30-110) U/L Lipase 31 (23-300) U/L Urine Color Urine Appearance (Clear) Urine pH (5.0-8.0) Ur Specific Runnells (1.001-1.035) Urine Protein (Negative) Urine Glucose (UA) (Negative) Urine Ketones (Negative) Urine Blood (Negative) Urine Nitrite (Negative) Urine Bilirubin (Negative) Urine Urobilinogen (<2.0) mg/dL Ur Leukocyte Esterase (Negative) Urine RBC (0-5) /hpf Urine WBC (0-5) /hpf Ur Squamous Epith Cells (0-4) /hpf Urine Bacteria (None) /hpf Hyaline Casts (0-2) /lpf Urine Mucus (None) /hpf 09/09/19 09/09/19 Range/Units 08:50 09:14 WBC (3.8-10.6) k/uL RBC (3.80-5.40) m/uL Hgb (11.4-16.0) gm/dL Hct (34.0-46.0) % MCV (80.0-100.0) fL MCH (25.0-35.0) pg MCHC (31.0-37.0) g/dL RDW (11.5-15.5) % Plt Count (150-450) k/uL Neutrophils % % Lymphocytes % % Monocytes % % Eosinophils % % Basophils % % Neutrophils # (1.3-7.7) k/uL Lymphocytes # (1.0-4.8) k/uL Monocytes # (0-1.0) k/uL Eosinophils # (0-0.7) k/uL Basophils # (0-0.2) k/uL PT 10.7 (9.0-12.0) sec INR 1.0 (<1.2) APTT 23.0 (22.0-30.0) sec Sodium (137-145) mmol/L Potassium (3.5-5.1) mmol/L Chloride (98-107) mmol/L Carbon Dioxide (22-30) mmol/L Anion Gap mmol/L BUN (7-17) mg/dL Creatinine (0.52-1.04) mg/dL Est GFR (CKD-EPI)AfAm (>60 ml/min/1.73 sqM) Est GFR (CKD-EPI)NonAf (>60 ml/min/1.73 sqM) Glucose (74-99) mg/dL Plasma Lactic Acid Jose (0.7-2.0) mmol/L Calcium (8.4-10.2) mg/dL Total Bilirubin (0.2-1.3) mg/dL AST (14-36) U/L ALT (9-52) U/L Alkaline Phosphatase (38-126) U/L Total Protein (6.3-8.2) g/dL Albumin (3.5-5.0) g/dL Amylase (30-110) U/L Lipase (23-300) U/L Urine Color Yellow Urine Appearance Turbid H (Clear) Urine pH 5.5 (5.0-8.0) Ur Specific Runnells 1.025 (1.001-1.035) Urine Protein 2+ H (Negative) Urine Glucose (UA) 1+ H (Negative) Urine Ketones 2+ H (Negative) Urine Blood Small H (Negative) Urine Nitrite Negative (Negative) Urine Bilirubin Negative (Negative) Urine Urobilinogen 2.0 (<2.0) mg/dL Ur Leukocyte Esterase Negative (Negative) Urine RBC 4 (0-5) /hpf Urine WBC 2 (0-5) /hpf Ur Squamous Epith Cells 32 H (0-4) /hpf Urine Bacteria Occasional H (None) /hpf Hyaline Casts 45 H (0-2) /lpf Urine Mucus Many H (None) /hpf - Radiology Data Radiology results: report reviewed Overall nonobstructive bowel gas pattern. Disposition Clinical Impression: Dehydration, Nausea & vomiting Disposition: HOME SELF-CARE Condition: Good Instructions (If sedation given, give patient instructions): Acute Nausea and Vomiting (ED) Additional Instructions: Please use medication as discussed. Please follow up with family doctor if symptoms have not improved over the next two days. Please return to the emergency room if your symptoms increase or worsen or for any other concerns. Prescriptions: Dicyclomine [Bentyl] 10 mg PO TID #12 capsule Is patient prescribed a controlled substance at d/c from ED?: No Referrals: Troy Schwab MD [Primary Care Provider] - 1-2 days Estevan Long MD [STAFF PHYSICIAN] - 1-2 days Jewell Bui MD [REFERRING] - 1-2 days Tonia Jorgensen MD [STAFF PHYSICIAN] - 1-2 days Lavonne Flores MD [STAFF PHYSICIAN] - 1-2 days Time of Disposition: 10:40
--- NOTE | 2019-09-09 09:19 | XR ---
EXAMINATION TYPE: XR KUB DATE OF EXAM: 09/09/2019 9:06 AM CLINICAL HISTORY: Abdominal pain with nausea and vomiting for 24 hours TECHNIQUE: Two Upright KUB images of the abdomen are obtained. COMPARISON: Abdominal x-ray June 08, 2019 FINDINGS: Gas is seen in nondistended stomach. Scattered gas is seen in non-distended small bowel loo ps and colon. There is no visceromegaly, pneumoperitoneum, or abnormal calcification appreciated. The lung bases are clear and the osseous structures are intact. IMPRESSION: Overall nonobstructive bowel gas pattern.
[2019-09-09 09:31] LABS: Basophils % (A) 0 %; Eosinophils # (A) 0.1 k/uL (0-0.7); Eosinophils % (A) 1 %; HGB 14.2 gm/dL (11.4-16.0); Lymphocytes % (A) 7 %; MCH 32.6 pg (25.0-35.0); MCV 98.7 fL (80.0-100.0); Mean Platelet Volume 7.3; Monocytes # (A) 0.5 k/uL (0-1.0); Monocytes % (A) 4 %; Neutrophils # (A) 12.9 k/uL (1.3-7.7); Neutrophils % (A) 88 %; Platelet Count 419 k/uL (150-450); RBC 4.36 m/uL (3.80-5.40); RDW 12.8 % (11.5-15.5); WBC 14.7 k/uL (3.8-10.6)
[2019-09-09] MEDS ORDERED: HYDROmorphone 1 MG/ML 1 ML SYRINGE IVP STA (09:31)
[2019-09-09] MEDS ORDERED: ONDANSETRON 4 MG/2 ML VIAL IVP STA (09:31)
[2019-09-09 09:38] LABS: Appearance,Urine Turbid (Clear); Bacteria,Urine Occasional /hpf; Bilirubin,Urine Negative (Negative); Blood,Urine Small (Negative); Color,Urine Yellow; Glucose,Urine (UA) 1+ (Negative); Hyaline Casts,Urine 45 /lpf (0-2); Leukocyte Esterase,Urine Negative (Negative); Mucus,Urine Many /hpf; Nitrite,Urine Negative (Negative); PH, Urine 5.5 (5.0-8.0); Protein,Urine 2+ (Negative); RBC,Urine 4 /hpf (0-5); Specific Gravity,Urine 1.025 (1.001-1.035); Squamous Epithelial Cell,Urine 32 /hpf (0-4); WBC,Urine 2 /hpf (0-5)
[2019-09-09 09:43] LABS: ALT 19 U/L (9-52); AST 22 U/L (14-36); African American GFR (CKD) >90 (>60 ml/min/1.73 sqM); Alkaline Phosphatase 78 U/L (38-126); Amylase 58 U/L (30-110); Anion Gap 17 mmol/L; Blood Urea Nitrogen 12 mg/dL (7-17); Calcium 10.6 mg/dL (8.4-10.2); Carbon Dioxide 19 mmol/L (22-30); Chloride 107 mmol/L (98-107); Glucose 178 mg/dL (74-99); Potassium 4.3 mmol/L (3.5-5.1); Sodium 143 mmol/L (137-145); Total Bilirubin 0.8 mg/dL (0.2-1.3); Total Protein 8.7 g/dL (6.3-8.2)
[2019-09-09 10:09] LABS: Prothrombin Time 10.7 sec (9.0-12.0)
[2019-09-09 10:13] LABS: Ketones,Urine 2+ (Negative)
[2019-09-09 11:15] VITALS: BP 106/71; PULSE 79
== END 2019-09-09 11:00 | disposition home or self-care (01) ==
LOC: EC 08:15
DX: E86.0 Dehydration (principal); R11.2 Nausea with vomiting, unspecified; R10.13 Epigastric pain; K21.9 Gastro-esophageal reflux disease without esophagitis; F17.200 Nicotine dependence, unspecified, uncomplicated; Z88.2 Allergy status to sulfonamides; Z87.19 Personal history of other diseases of the digestive system; Z90.49 Acquired absence of other specified parts of digestive tract
CPT/HCPCS: 99284 ×2; 96374 ×2; 96375 ×5; 96361 ×3; 36415; 80053; 82150; 83605; 83690; 85025; 85610; 85730; 81001; 74018; J2270; J2765; J2405; J1170; C9113

== ENCOUNTER 2019-10-12 16:40 | Emergency (ER) | payer MEDICARE ==
[2019-10-12] MEDS ORDERED: diphenhydrAMINE 50 MG/ML 1 ML VIAL IVP STA (17:05)
[2019-10-12] MEDS ORDERED: HYDROmorphone 0.5 MG/0.5 ML SYRINGE IVP STA ×2 (17:05→17:57)
[2019-10-12] MEDS ORDERED: SODIUM CHLORIDE 0.9% 1,000 ML IV STA (17:05)
[2019-10-12] MEDS ORDERED: METOCLOPRAMIDE 5 MG/ML 2 ML VIAL IVP STA (17:05)
[2019-10-12 17:36] LABS: Basophils # (A) 0.1 k/uL (0-0.2); Basophils % (A) 1 %; Eosinophils # (A) 0.1 k/uL (0-0.7); Eosinophils % (A) 2 %; HCT 46.4 % (34.0-46.0); HGB 15.6 gm/dL (11.4-16.0); Lymphocytes # (A) 1.6 k/uL (1.0-4.8); Lymphocytes % (A) 21 %; MCH 32.2 pg (25.0-35.0); MCHC 33.6 g/dL (31.0-37.0); MCV 95.9 fL (80.0-100.0); Mean Platelet Volume 6.9; Monocytes # (A) 0.4 k/uL (0-1.0); Monocytes % (A) 5 %; Neutrophils # (A) 5.4 k/uL (1.3-7.7); Neutrophils % (A) 70 %; Platelet Count 477 k/uL (150-450); RBC 4.84 m/uL (3.80-5.40); RDW 11.8 % (11.5-15.5); WBC 7.8 k/uL (3.8-10.6)
[2019-10-12 17:46] LABS: ALT 19 U/L (9-52); AST 23 U/L (14-36); African American GFR (CKD) >90 (>60 ml/min/1.73 sqM); Albumin 5.3 g/dL (3.5-5.0); Alkaline Phosphatase 77 U/L (38-126); Amylase 70 U/L (30-110); Anion Gap 18 mmol/L; Blood Urea Nitrogen 10 mg/dL (7-17); Calcium 10.7 mg/dL (8.4-10.2); Carbon Dioxide 19 mmol/L (22-30); Chloride 105 mmol/L (98-107); Glucose 140 mg/dL (74-99); Non-African American GFR(CKD) 85 (>60 ml/min/1.73 sqM); Potassium 3.7 mmol/L (3.5-5.1); Sodium 142 mmol/L (137-145); Total Bilirubin 0.6 mg/dL (0.2-1.3); Total Protein 9.5 g/dL (6.3-8.2)
--- NOTE | 2019-10-12 17:47 | XR ---
EXAMINATION TYPE: XR KUB DATE OF EXAM: 10/12/2019 CLINICAL DATA: 39-year-old female with abdominal pain and vomiting, [facility] COMPARISON: 09/09/2019 FINDINGS: Lung bases are clear. No evidence for free intraperitoneal air. No dilated small bowel or air-fluid levels. No significant stool burden. Scattered colonic air throughout. No suspicious calcifications seen. IMPRESSION: 1. No significant stool burden. 2.No evidence of bowel obstruction or free intraperitoneal air.
--- NOTE | 2019-10-12 17:50 | ED ---
General Adult HPI - General Chief complaint: Nausea/Vomiting/Diarrhea Stated complaint: vomiting, abd pain Time Seen by Provider: 10/12/19 16:54 Source: patient, RN notes reviewed Mode of arrival: ambulatory Limitations: no limitations - History of Present Illness Initial comments: 39-year-old female with a past medical history of GERD, hyperlipidemia, gastroparesis, gastritis presents to the emergency department for a chief complaint nausea vomiting. Patient states this has been ongoing for the past day. States she has severe upper abdominal pain as well. Patient states she has had similar occurrences in the past and it is related to her gastroparesis. Patient requesting pain medication.Patient has no other complaints at this time including shortness of breath, chest pain, abdominal pain, nausea or vomiting, headache, or visual changes. - Related Data Home Medications Medication Instructions Recorded Confirmed Ondansetron [Zofran] 4 - 8 mg PO Q12HR PRN 06/08/19 09/09/19 Previous Rx's Medication Instructions Recorded Dicyclomine [Bentyl] 10 mg PO TID #12 capsule 09/09/19 Allergies Allergy/AdvReac Type Severity Reaction Status Date / Time sulfamethoxazole Allergy Unknown Verified 10/12/19 16:47 [From Bactrim] trimethoprim [From Bactrim] Allergy Unknown Verified 10/12/19 16:47 Review of Systems ROS Statement: Those systems with pertinent positive or pertinent negative responses have been documented in the HPI. ROS Other: All systems not noted in ROS Statement are negative. Past Medical History Past Medical History: GERD/Reflux, Hyperlipidemia, Musculoskeletal Disorder, Neurologic Disorder Additional Past Medical History / Comment(s): herniated disc, gastritis, gastroparesis, migraines, esophageal tears, History of Any Multi-Drug Resistant Organisms: None Reported Past Surgical History: Appendectomy, Tubal Ligation Additional Past Surgical History / Comment(s): Appendectomy, tubal ligation, EGD. Past Anesthesia/Blood Transfusion Reactions: No Reported Reaction Additional Past Anesthesia/Blood Transfusion Reaction / Comment(s): never had blood transfusion. Past Psychological History: Anxiety, Depression Smoking Status: Current every day smoker Past Alcohol Use History: None Reported Past Drug Use History: Marijuana - Past Family History Mother Family Medical History: Cancer (Mother is 60-year-old has history of breast cancer and hypothyroidism.) Father Family Medical History: No Reported History (Father at age 54 from alcoholism and also has bipolar disorder.) Brother(s) Family Medical History: Neurologic Disorder (Patient has 2 brothers one of them with brain surgery.) Sister(s) Family Medical History: No Reported History (Patient has 2 sisters and one half- sister who was involved in a motor vehicle accident) Son(s) Family Medical History: No Reported History (Patient has 2 sons no major medical problems) Daughter(s) Family Medical History: No Reported History (Patient has one daughter no major medical problems) General Exam Limitations: no limitations General appearance: alert, in no apparent distress, other (Vomiting) Head exam: Present: atraumatic, normocephalic, normal inspection Eye exam: Present: normal appearance, PERRL, EOMI. Absent: scleral icterus, conjunctival injection, periorbital swelling ENT exam: Present: normal exam, mucous membranes moist Neck exam: Present: normal inspection, full ROM. Absent: tenderness, meningism us, lymphadenopathy Respiratory exam: Present: normal lung sounds bilaterally. Absent: respiratory distress, wheezes, rales, rhonchi, stridor Cardiovascular Exam: Present: regular rate, normal rhythm, normal heart sounds. Absent: systolic murmur, diastolic murmur, rubs, gallop, clicks GI/Abdominal exam: Present: soft, tenderness (Tenderness in the epigastric area), normal bowel sounds. Absent: distended, guarding, rebound, rigid Neurological exam: Present: alert Course Vital Signs 10/12/19 10/12/19 16:45 18:17 Temperature 98.1 F Pulse Rate 128 H 101 H Respiratory 18 18 Rate Blood Pressure 127/89 125/98 O2 Sat by Pulse 97 99 Oximetry Medical Decision Making - Medical Decision Making Patient presents to the emergency department with vomiting. Patient initially tachycardic with a pulse of 128 however she is vomiting at that time. This was repeated and did improve to 101. CBC CMP unremarkable. X-ray shows no significant stool burning, no evidence of bowel obstruction or free intraperitoneal air. There are no dilated small bowel loops. Patient was given analgesics as well as anti-emetics. She had significant improvement. She no longer is vomiting and is tolerating oral intake. Patient will be discharged home as this is likely secondary to her gastroparesis as she has had these exact same symptoms several times before. She will follow up with primary care in 1-2 days and return if she has any worsening symptoms. - Lab Data Result diagrams: 10/12/19 17:20 10/12/19 17:20 Lab Results 10/12/19 10/12/19 Range/Units 17:20 17:20 WBC 7.8 (3.8-10.6) k/uL RBC 4.84 (3.80-5.40) m/uL Hgb 15.6 (11.4-16.0) gm/dL Hct 46.4 H (34.0-46.0) % MCV 95.9 (80.0-100.0) fL MCH 32.2 (25.0-35.0) pg MCHC 33.6 (31.0-37.0) g/dL RDW 11.8 (11.5-15.5) % Plt Count 477 H (150-450) k/uL Neutrophils % 70 % Lymphocytes % 21 % Monocytes % 5 % Eosinophils % 2 % Basophils % 1 % Neutrophils # 5.4 (1.3-7.7) k/uL Lymphocytes # 1.6 (1.0-4.8) k/uL Monocytes # 0.4 (0-1.0) k/uL Eosinophils # 0.1 (0-0.7) k/uL Basophils # 0.1 (0-0.2) k/uL Sodium 142 (137-145) mmol/L Potassium 3.7 (3.5-5.1) mmol/L Chloride 105 (98-107) mmol/L Carbon Dioxide 19 L (22-30) mmol/L Anion Gap 18 mmol/L BUN 10 (7-17) mg/dL Creatinine 0.86 (0.52-1.04) mg/dL Est GFR (CKD-EPI)AfAm >90 (>60 ml/min/1.73 sqM) Est GFR (CKD-EPI)NonAf 85 (>60 ml/min/1.73 sqM) Glucose 140 H (74-99) mg/dL Calcium 10.7 H (8.4-10.2) mg/dL Total Bilirubin 0.6 (0.2-1.3) mg/dL AST 23 (14-36) U/L ALT 19 (9-52) U/L Alkaline Phosphatase 77 (38-126) U/L Total Protein 9.5 H (6.3-8.2) g/dL Albumin 5.3 H (3.5-5.0) g/dL Amylase 70 (30-110) U/L Lipase 52 (23-300) U/L Disposition Clinical Impression: Nausea & vomiting, Gastroparesis Disposition: HOME SELF-CARE Condition: Good Instructions (If sedation given, give patient instructions): Acute Nausea and Vomiting (ED) Additional Instructions: Please follow up with primary care in 1-2 days. Return to the emergency department if you have any worsening symptoms. Is patient prescribed a controlled substance at d/c from ED?: No Referrals: Troy Schwab MD [Primary Care Provider] - 1-2 days Time of Disposition: 18:40
[2019-10-12] MEDS ORDERED: ONDANSETRON 4 MG/2 ML VIAL IVP STA (17:57)
[2019-10-12 18:57] VITALS: BP 134/74; PULSE 78; RESP 16; TEMP 97.8
== END 2019-10-12 18:56 | disposition home or self-care (01) ==
LOC: EC 16:40
DX: K31.84 Gastroparesis (principal); R00.0 Tachycardia, unspecified; K21.9 Gastro-esophageal reflux disease without esophagitis; F17.200 Nicotine dependence, unspecified, uncomplicated; Z88.2 Allergy status to sulfonamides; Z79.899 Other long term (current) drug therapy; Z90.49 Acquired absence of other specified parts of digestive tract
CPT/HCPCS: 36415; 80053; 82150; 83690; 85025; 74018; 99284; 96374; 96375 ×3; 96376; 96361; J1200; J2765; J2405; J1170

== ENCOUNTER 2019-10-14 13:12 | Observation (INO) | payer MEDICARE ==
[2019-10-14] MEDS ORDERED: diphenhydrAMINE 50 MG/ML 1 ML VIAL IVP STA (13:39)
[2019-10-14] MEDS ORDERED: SODIUM CHLORIDE 0.9% 1,000 ML IV STA (13:39)
[2019-10-14] MEDS ORDERED: HYDROmorphone 0.5 MG/0.5 ML SYRINGE IVP STA (13:39)
[2019-10-14] MEDS ORDERED: METOCLOPRAMIDE 5 MG/ML 2 ML VIAL IVP STA (13:39)
[2019-10-14] MEDS: SODIUM CHLORIDE 0.9% 1,000 ML IV STA ×2 (14:04→14:40)
--- NOTE | 2019-10-14 14:05 | ED ---
General Adult HPI - General Source: patient, RN notes reviewed, old records reviewed Mode of arrival: ambulatory Limitations: no limitations <Earlene Bernardoily - Last Filed: 10/14/19 17:12> <Hyacinth Chau - Last Filed: 10/22/19 14:09> - General Chief complaint: Nausea/Vomiting/Diarrhea Stated complaint: Abd pain, vomiting Time Seen by Provider: 10/14/19 13:20 - History of Present Illness Initial comments: 39-year-old female presents today for evaluation for concern for nausea and vomiting. She's been vomiting blood. She reports she has history of gastroparesis. She states that she was unresponsive 3 days ago, continues to have pain and nausea and vomiting. She reports that she has had fatigue, weakness due to the vomiting. Patient complains of retching. She reports that she moved to the area from [facility]. (Samantha Bernardo) - Related Data Previous Rx's Medication Instructions Recorded Ondansetron [Zofran ODT] 8 mg PO Q6H PRN #30 tab 10/15/19 Allergies Allergy/AdvReac Type Severity Reaction Status Date / Time sulfamethoxazole Allergy Rash/Hives Verified 10/14/19 16:38 [From Bactrim] trimethoprim [From Bactrim] Allergy Rash/Hives Verified 10/14/19 16:38 Review of Systems ROS Other: All systems not noted in ROS Statement are negative. <Samantha Bernardo - Last Filed: 10/14/19 17:12> ROS Other: All systems not noted in ROS Statement are negative. <Hyacinth Chau - Last Filed: 10/22/19 14:09> ROS Statement: Those systems with pertinent positive or pertinent negative responses have been documented in the HPI. Past Medical History Past Medical History: GERD/Reflux, Hyperlipidemia, Musculoskeletal Disorder, Neurologic Disorder Additional Past Medical History / Comment(s): herniated disc, gastritis, gastroparesis, migraines, esophageal tears, History of Any Multi-Drug Resistant Organisms: None Reported Past Surgical History: Appendectomy, Tubal Ligation Additional Past Surgical History / Comment(s): Appendectomy, tubal ligation, EGD. Past Anesthesia/Blood Transfusion Reactions: No Reported Reaction Additional Past Anesthesia/Blood Transfusion Reaction / Comment(s): never had blood transfusion. Past Psychological History: Anxiety, Depression Smoking Status: Current every day smoker Past Alcohol Use History: None Reported Past Drug Use History: Marijuana - Past Family History Mother Family Medical History: Cancer (Mother is 60-year-old has history of breast cancer and hypothyroidism.) Father Family Medical History: No Reported History (Father at age 54 from a lcoholism and also has bipolar disorder.) Brother(s) Family Medical History: Neurologic Disorder (Patient has 2 brothers one of them with brain surgery.) Sister(s) Family Medical History: No Reported History (Patient has 2 sisters and one half- sister who was involved in a motor vehicle accident) Son(s) Family Medical History: No Reported History (Patient has 2 sons no major medical problems) Daughter(s) Family Medical History: No Reported History (Patient has one daughter no major medical problems) <Samantha Bernardo - Last Filed: 10/14/19 17:12> General Exam Limitations: no limitations General appearance: alert, in no apparent distress Head exam: Present: atraumatic, normocephalic, normal inspection Eye exam: Present: normal appearance, PERRL, EOMI. Absent: scleral icterus, conjunctival injection, periorbital swelling ENT exam: Present: normal exam, mucous membranes moist Neck exam: Present: normal inspection. Absent: tenderness, meningismus, lymphadenopathy Respiratory exam: Present: normal lung sounds bilaterally. Absent: respiratory distress, wheezes, rales, rhonchi, stridor Cardiovascular Exam: Present: regular rate, normal rhythm, normal heart sounds. Absent: systolic murmur, diastolic murmur, rubs, gallop, clicks GI/Abdominal exam: Present: soft, tenderness (His abdominal tenderness.), normal bowel sounds. Absent: distended, guarding, rebound, rigid Extremities exam: Present: normal inspection, full ROM, normal capillary refill. Absent: tenderness, pedal edema, joint swelling, calf tenderness Back exam: Present: normal inspection Neurological exam: Present: alert, oriented X3, CN II-XII intact Psychiatric exam: Present: normal affect, normal mood <Samantha Bernardo - Last Filed: 10/14/19 17:12> - General Exam Comments Initial Comments: 39-year-old female. No distress. (Samantha Bernardo) Course <Samantha Bernardo - Last Filed: 10/14/19 17:12> Vital Signs 10/14/19 10/14/19 13:13 18:12 Temperature 98 F 98.0 F Pulse Rate 124 H 76 Respiratory 22 16 Rate Blood Pressure 152/105 98/52 O2 Sat by Pulse 97 97 Oximetry - Reevaluation(s) Reevaluation #1: 10/14/19 15:55 Patient is retching, vomiting of blood tinged bile. (MiriamlisaSamantha) Medical Decision Making - Lab Data Result diagrams: 10/14/19 13:57 10/14/19 13:57 - Radiology Data Radiology results: report reviewed <Samantha Bernardo - Last Filed: 10/14/19 17:12> - Lab Data Result diagrams: 10/15/19 07:05 10/14/19 13:57 <Hyacinth Chau - Last Filed: 10/22/19 14:09> - Medical Decision Making 39-year-old female presents today for nausea and vomiting. She's been here 2 days ago for similar complaints. Vomiting up some bloody emesis. This time Patient was given multiple doses of nausea medicine, continue to retch. Patient's labwork was reviewed and unremarkable. CT abdomen and pelvis is negative for any acute process. Discussed with persistent nausea vomiting of bloody emesis will admit the Patient for GI consult and fluids. ( ChaukarliEarleneSamantha) I was available for consultation in the emergency department. The history and physical exam were done by the midlevel provider. I was consulted for this patients care. I reviewed the case with the midlevel provider and based on their presentation of the patient, I agree with the assessment, medical decision making and plan of care as documented. I discussed the case with the admitting hospitalist. Chart was dictated using [employer] dictation software. Attempts were made to correct any dictation errors however some typographical errors may persist. (Hyacinth Chau) - Lab Data Lab Results 10/14/19 10/14/19 10/14/19 Range/Units 13:47 13:57 13:57 WBC 6.9 (3.8-10.6) k/uL RBC 4.42 (3.80-5.40) m/uL Hgb 14.5 (11.4-16.0) gm/dL Hct 42.3 (34.0-46.0) % MCV 95.6 (80.0-100.0) fL MCH 32.8 (25.0-35.0) pg MCHC 34.3 (31.0-37.0) g/dL RDW 11.7 (11.5-15.5) % Plt Count 417 (150-450) k/uL Neutrophils % 61 % Lymphocytes % 29 % Monocytes % 5 % Eosinophils % 2 % Basophils % 2 % Neutrophils # 4.2 (1.3-7.7) k/uL Lymphocytes # 2.0 (1.0-4.8) k/uL Monocytes # 0.3 (0-1.0) k/uL Eosinophils # 0.1 (0-0.7) k/uL Basophils # 0.1 (0-0.2) k/uL Sodium 139 (137-145) mmol/L Potassium 3.6 (3.5-5.1) mmol/L Chloride 102 (98-107) mmol/L Carbon Dioxide 22 (22-30) mmol/L Anion Gap 15 mmol/L BUN 8 (7-17) mg/dL Creatinine 0.64 (0.52-1.04) mg/dL Est GFR (CKD-EPI)AfAm >90 (>60 ml/min/1.73 sqM) Est GFR (CKD-EPI)NonAf >90 (>60 ml/min/1.73 sqM) Glucose 129 H (74-99) mg/dL Calcium 10.0 (8.4-10.2) mg/dL Total Bilirubin 0.8 (0.2-1.3) mg/dL AST 21 (14-36) U/L ALT 16 (9-52) U/L Alkaline Phosphatase 60 (38-126) U/L Total Protein 8.5 H (6.3-8.2) g/dL Albumin 4.8 (3.5-5.0) g/dL Amylase 53 (30-110) U/L Lipase 44 (23-300) U/L Urine Color Yellow Urine Appearance Clear (Clear) Urine pH 6.5 (5.0-8.0) Ur Specific [place] 1.009 (1.001-1.035) Urine Protein Negative (Negative) Urine Glucose (UA) Negative (Negative) Urine Ketones Negative (Negative) Urine Blood Moderate H (Negative) Urine Nitrite Negative (Negative) Urine Bilirubin Negative (Negative) Urine Urobilinogen <2.0 (<2.0) mg/dL Ur Leukocyte Esterase Negative (Negative) Urine RBC 6 H (0-5) /hpf Urine WBC 1 (0-5) /hpf Ur Squamous Epith Cells 2 (0-4) /hpf Urine Bacteria Rare H (None) /hpf Urine Mucus Rare H (None) /hpf - Radiology Data CT finding for patient's clinical symptoms. Uterus is heterogeneous and bulk in size with small amount of clear fluid. Likely physiologic. (Samantha Bernardo) Disposition Is patient prescribed a controlled substance at d/c from ED?: No Time of Disposition: 16:52 <Samantha Bernardo - Last Filed: 10/14/19 17:12> <Hyacinth Chau - Last Filed: 10/22/19 14:09> Clinical Impression: Intractable nausea and vomiting Disposition: ADMITTED IP TO THIS HOSP Condition: Stable
[2019-10-14 14:08] LABS: Basophils # (A) 0.1 k/uL (0-0.2); Basophils % (A) 2 %; Eosinophils # (A) 0.1 k/uL (0-0.7); Eosinophils % (A) 2 %; HCT 42.3 % (34.0-46.0); HGB 14.5 gm/dL (11.4-16.0); Lymphocytes % (A) 29 %; MCH 32.8 pg (25.0-35.0); MCHC 34.3 g/dL (31.0-37.0); MCV 95.6 fL (80.0-100.0); Mean Platelet Volume 6.9; Monocytes # (A) 0.3 k/uL (0-1.0); Monocytes % (A) 5 %; Neutrophils # (A) 4.2 k/uL (1.3-7.7); Neutrophils % (A) 61 %; Platelet Count 417 k/uL (150-450); RBC 4.42 m/uL (3.80-5.40); RDW 11.7 % (11.5-15.5); WBC 6.9 k/uL (3.8-10.6)
[2019-10-14 14:09] LABS: Appearance,Urine Clear (Clear); Bacteria,Urine Rare /hpf; Bilirubin,Urine Negative (Negative); Blood,Urine Moderate (Negative); Color,Urine Yellow; Glucose,Urine (UA) Negative (Negative); Ketones,Urine Negative (Negative); Leukocyte Esterase,Urine Negative (Negative); Mucus,Urine Rare /hpf; Nitrite,Urine Negative (Negative); PH, Urine 6.5 (5.0-8.0); Protein,Urine Negative (Negative); RBC,Urine 6 /hpf (0-5); Specific Gravity,Urine 1.009 (1.001-1.035); Squamous Epithelial Cell,Urine 2 /hpf (0-4); Urobilinogen,Urine <2.0 mg/dL (<2.0); WBC,Urine 1 /hpf (0-5)
[2019-10-14 14:20] LABS: ALT 16 U/L (9-52); AST 21 U/L (14-36); African American GFR (CKD) >90 (>60 ml/min/1.73 sqM); Albumin 4.8 g/dL (3.5-5.0); Alkaline Phosphatase 60 U/L (38-126); Amylase 53 U/L (30-110); Anion Gap 15 mmol/L; Blood Urea Nitrogen 8 mg/dL (7-17); Carbon Dioxide 22 mmol/L (22-30); Chloride 102 mmol/L (98-107); Glucose 129 mg/dL (74-99); Non-African American GFR(CKD) >90 (>60 ml/min/1.73 sqM); Sodium 139 mmol/L (137-145); Total Bilirubin 0.8 mg/dL (0.2-1.3); Total Protein 8.5 g/dL (6.3-8.2)
[2019-10-14 14:23] LABS: Potassium 3.6 mmol/L (3.5-5.1)
[2019-10-14] MEDS ORDERED: SODIUM CHLORIDE 0.9% 1,000 ML IV ONE (14:34)
[2019-10-14] MEDS ORDERED: ONDANSETRON 4 MG/2 ML VIAL IVP STA (14:59)
--- NOTE | 2019-10-14 15:14 | CT ---
EXAMINATION TYPE: CT abdomen pelvis w con DATE OF EXAM: 10/14/2019 HISTORY: Abd pain and vomiting. History of appendectomy and tubal ligation. CT DLP: 770.2mGycm Automated Exposure Control for Dose Reduction was Utilized. CONTRAST: CT scan of the abdomen and pelvis is performed with IV Contrast, patient injected with 100 mL of Isov ue 300. COMPARISON: None. FINDINGS: LUNG BASES: No significant abnormality is appreciated. LIVER/GB: Hepatic parenchyma is diffusely hypoattenuated in comparison to that of the spleen, most co mmonly seen in hepatic steatosis. This finding limits evaluation for hepatic masses. No gross evidenc e of hepatic mass is seen. No intrahepatic biliary ductal dilatation. No cholelithiasis. PANCREAS: No significant abnormality is seen. No peripancreatic fat stranding. SPLEEN: No thyromegaly. ADRENALS: No nodule or thickening. KIDNEYS: Kidneys enhance and excrete symmetrically without hydronephrosis. BOWEL: No dilated large or small bowel. Appendix is surgically absent. UTERUS/ADNEXA: Uterus is retroflexed and bulky in size with pronounced junctional zone. Trace amount of fluid in the pelvis is likely physiologic in nature. LYMPH NODES: No greater than 1cm abdominal or pelvic lymph nodes are appreciated. OSSEOUS STRUCTURES: Degenerative disc disease at L5-S1. IMPRESSION: 1. No CT finding is seen to account for patient's clinical symptoms. 2. Uterus is heterogenous and bulky in size with small amount of free fluid, likely physiologic in na ture.
[2019-10-14] MEDS ORDERED: LORazepam 2 MG/ML INJ IV PRN ×2 (17:14→17:57)
[2019-10-14] MEDS ORDERED: NALOXONE 0.4 MG/ML 1 ML VIAL IV PRN (17:14)
[2019-10-14] MEDS ORDERED: ONDANSETRON 4 MG/2 ML VIAL IVP PRN (17:14)
[2019-10-14] MEDS ORDERED: MORPHINE SULFATE 4 MG/ML SYRINGE IV PRN (17:14)
--- NOTE | 2019-10-14 18:01 | P.HPIM ---
History of Present Illness H&P Date: 10/14/19 Chief Complaint: Nausea and vomiting blood 39-year-old female with PMH of idiopathic gastroparesis presents the ED for persistent nausea and multiple episodes of bloody vomiting since Thursday. Patient reports that the nausea comes in waves but is persistently gotten worse leading to today. Patient states that she has a prescription for Zofran at home but this has not helped. With her inability to tolerate food since Thursday, this prompted her to come to the ED. Patient reports abdominal pain, epigastric, burning in nature, 8-9 out of 10 in severity. She describes the pain is spastic. Patient states that she has seen a technical services specialist in the past but is unsure who it was. She has received Botox injections at the mouth of her stomach with minimal relief. Her gastroparesis started after food poisoning 10 years prior, where she developed hematemesis due to violent retching. Patient reports that she had an upper endoscopy that was done 8 months ago. Patient denies any headaches, lower extremity edema, fever or chills, cough, chest pain, shortness of breath, palpitations, changes in urination. Patient reports bowel movements that alternate from constipation and diarrhea. She denies any dizziness, numbness/weakness/tingling of the extremities. Patient has used marijuana in the past to relieve her nausea with decent results. Patient states that her gastroparesis usually flares up before or during her menses. Patient also reports that she lost her sister 2 days ago and has had increased stress and anxiety due to that reason. In the ED, patient was tachycardic with a heart rate of 124. Her blood pressure was 152/105. Vital signs were otherwise stable. CBC and CMP was unremarkable except for glucose of 129. Urinalysis showed moderate blood. CT of the abdomen and pelvis showed a heterogenous uterus. Patient is admitted for nausea and vomiting with inability to tolerate by mouth, gastroenterology on consult. Review of Systems Pertinent positives and negatives as discussed in HPI, a complete review of systems was performed and all other systems are negative. Past Medical History Past Medical History: GERD/Reflux, Hyperlipidemia, Musculoskeletal Disorder, Neurologic Disorder Additional Past Medical History / Comment(s): herniated disc, gastritis, gastroparesis, migraines, esophageal tears, History of Any Multi-Drug Resistant Organisms: None Reported Past Surgical History: Appendectomy, Tubal Ligation Additional Past Surgical History / Comment(s): Appendectomy, tubal ligation, EGD. Past Anesthesia/Blood Transfusion Reactions: No Reported Reaction Additional Past Anesthesia/Blood Transfusion Reaction / Comment(s): never had blood transfusion. Past Psychological History: Anxiety, Depression Smoking Status: Current every day smoker Past Alcohol Use History: None Reported Past Drug Use History: Marijuana - Past Family History Mother Family Medical History: Cancer (Mother is 60-year-old has history of breast cancer and hypothyroidism.) Father Family Medical History: No Reported History (Father at age 54 from alcoholism and also has bipolar disorder.) Brother(s) Family Medical History: Neurologic Disorder (Patient has 2 brothers one of them with brain surgery.) Sister(s) Family Medical History: No Reported History (Patient has 2 sisters and one half- sister who was involved in a motor vehicle accident) Son(s) Family Medical History: No Reported History (Patient has 2 sons no major medical problems) Daughter(s) Family Medical History: No Reported History (Patient has one daughter no major medical problems) Medications and Allergies Home Medications Medication Instructions Recorded Confirmed Type Ondansetron [Zofran ODT] 8 mg PO Q6H PRN 10/14/19 10/14/19 History Allergies Allergy/AdvReac Type Severity Reaction Status Date / Time sulfamethoxazole Allergy Rash/Hives Verified 10/14/19 16:38 [From Bactrim] trimethoprim [From Bactrim] Allergy Rash/Hives Verified 10/14/19 16:38 Physical Exam Vitals: Vital Signs Temp Pulse Resp BP Pulse Ox 10/14/19 13:13 98 F 124 H 22 152/105 97 Intake and Output 10/14/19 10/14/19 10/14/19 06:59 14:59 22:59 Other: Weight 65.771 kg General: [non toxic], [no distress], [appears at stated age] Derm: [warm], [dry] Head: [atraumatic], [normocephalic], [symmetric] Eyes: [EOMI], [no lid lag], [anicteric sclera] Mouth: [no lip lesion], [mucus membranes moist] Cardiovascular: [S1S2 reg], [no murmur], [positive posterior tibial pulse bilateral], Lungs: [CTA bilateral], [no rhonchi, no rales] , [no accessory muscle use] Abdominal: [soft], [tenderness to palpation of the epigastric region without rebound], [no guarding], [no appreciable organomegaly] Ext: [no gross muscle atrophy], [no edema], [no contractures] Neuro: [no focal neuro deficits] Psych: [Alert], [oriented], [appropriate affect] Results CBC & Chem 7: 10/14/19 13:57 10/14/19 13:57 Labs: Abnormal Lab Results - Last 24 Hours (Table) 10/14/19 10/14/19 Range/Units 13:47 13:57 Glucose 129 H (74-99) mg/dL Total Protein 8.5 H (6.3-8.2) g/dL Urine Blood Moderate H (Negative) Urine RBC 6 H (0-5) /hpf Urine Bacteria Rare H (None) /hpf Urine Mucus Rare H (None) /hpf Assessment and Plan Assessment: Assessment and plan Persistent nausea and vomiting with hematemesis likely related to gastroparesis Hyperglycemia Abnormal UA Illicit drug use Her hemoglobin has dropped from 15.6-14.5 over the past 2 days. She did receive 2 L of IVF prior to CBC being drawn, likely dilutional. Plans: Zofran alternating with Reglan as needed for nausea or vomiting. Pain control with Dilaudid as needed. Start Ativan as needed for anxiety. Protonix 40 mg IV daily. Nothing by mouth and advance diet as tolerated. Follow GI consultation. [id number] glucose 129. No history of diabetes. Plans: Follow A1c. UA showing blood. Patient is on her menses. Plans: Nothing further to do. Patient endorses using marijuana. Plans: Advised to quit. Ativan as needed for anxiety. DVT prophylaxis: [SCD] Discussed with: [Patient] Anticipated discharge: [1-2 days] Anticipated discharge place: [Home] A total of [45] minutes was spent on the care of this complex patient more than 50% of the time was spent in counseling and care coordination. Patient admitted for persistent nausea and vomiting, inability to tolerate oral intake. She is pending clinical improvement. GI is consulted. Patient reiterates wanting to remain full code at this time. Patient names her Emre decision-maker indicates that she can't make decisions for herself.
[2019-10-14] MEDS: HYDROmorphone 0.5 MG/0.5 ML SYRINGE IVP PRN (19:24)
[2019-10-14] MEDS: METOCLOPRAMIDE 5 MG/ML 2 ML VIAL IVP SCH ×2 (19:26→23:56)
[2019-10-14 19:47] VITALS: BMI 22.7
[2019-10-15 05:25] VITALS: PULSE 59; RESP 16
[2019-10-15] MEDS: METOCLOPRAMIDE 5 MG/ML 2 ML VIAL IVP SCH ×2 (05:39→12:32)
[2019-10-15 08:08] LABS: HCT 33.7 % (34.0-46.0); MCH 33.2 pg (25.0-35.0); MCHC 33.6 g/dL (31.0-37.0); MCV 98.9 fL (80.0-100.0); Platelet Count 310 k/uL (150-450); RBC 3.41 m/uL (3.80-5.40); RDW 11.8 % (11.5-15.5); WBC 4.9 k/uL (3.8-10.6)
[2019-10-15 08:10] LABS: HGB 11.3 gm/dL (11.4-16.0)
[2019-10-15] MEDS: HYDROmorphone 0.5 MG/0.5 ML SYRINGE IVP PRN ×2 (08:37)
[2019-10-15] MEDS ORDERED: PANTOPRAZOLE 40 MG/10 ML VIAL IV SCH (09:00)
--- NOTE | 2019-10-15 09:51 | P.DS ---
Providers Date of admission: 10/14/19 16:51 Expected date of discharge: 10/15/19 Attending physician: Akhil Wall MD Consults: 10/14/19 17:08 Consult Physician Urgent Consulting Provider: Lavonne Flores Consult Reason/Comments: acute hematemesis, hx gastroparesis Do you want consulting provider notified?: Yes Primary care physician: [facility] Course: 39-year-old female with PMH of idiopathic gastroparesis presents the ED for persistent nausea and multiple episodes of bloody vomiting since Thursday. Patient reports that the nausea comes in waves but is persistently gotten worse leading to today. Patient states that she has a prescription for Zofran at home but this has not helped. With her inability to tolerate food since Thursday, this prompted her to come to the ED. Patient reports abdominal pain, epigastric, burning in nature, 8-9 out of 10 in severity. She describes the pain is spastic. Patient states that she has seen a meat market manager in the past but is unsure who it was. She has received Botox injections at the mouth of her stomach with minimal relief. Her gastroparesis started after food poisoning 10 years prior, where she developed hematemesis due to violent retching. Patient reports that she had an upper endoscopy that was done 8 months ago. Patient denies any headaches, lower extremity edema, fever or chills, cough, chest pain, shortness of breath, palpitations, changes in urination. Patient reports bowel movements that alternate from constipation and diarrhea. She denies any dizziness, numbness/weakness/tingling of the extremities. Patient has used marijuana in the past to relieve her nausea with decent results. Patient states that her gastroparesis usually flares up before or during her menses. Patient also reports that she lost her sister 2 days ago and has had increased stress and anxiety due to that reason. In the ED, patient was tachycardic with a heart rate of 124. Her blood pressure was 152/105. Vital signs were otherwise stable. CBC and CMP was unremarkable except for glucose of 129. Urinalysis showed moderate blood. CT of the abdomen and pelvis showed a heterogenous uterus. Patient is admitted for nausea and vomiting with inability to tolerate by mouth, gastroenterology on consult. Patient was given Reglan, Zofran and Ativan as needed for nausea and vomiting along with anxiety. She was started on Protonix 40 mg IV daily. With Dilaudid 0.5 mg IV every 3 hours. Hemoglobin on admission was 14.5. Repeat hemoglobin was 11.3. This is thought to be likely due to dilution as all of her cell lines were down. Patient was seen and examined. No acute events overnight. Patient reports nausea well controlled with current medications. No vomiting since yesterday. Complained of epigastric discomfort after eating a little bit of clear liquid diet. She denies any chest pain, shortness of breath or palpitations. No fever or chills. General: [non toxic], [no distress], [appears at stated age] Derm: [warm], [dry] Head: [atraumatic], [normocephalic], [symmetric] Eyes: [EOMI], [no lid lag], [anicteric sclera] Mouth: [no lip lesion], [mucus membranes moist] Cardiovascular: [S1S2 reg], [no murmur], [positive posterior tibial pulse bilateral], Lungs: [CTA bilateral], [no rhonchi, no rales] , [no accessory muscle use] Abdominal: [soft], [tenderness to palpation of the epigastric region without rebound], [no guarding], [no appreciable organomegaly] Ext: [no gross muscle atrophy], [no edema], [no contractures] Neuro: [no focal neuro deficits] Psych: [Alert], [oriented], [appropriate affect] Assessment and plan Persistent nausea and vomiting with hematemesis likely related to gastroparesis Anemia Hyperglycemia Abnormal UA Illicit drug use Her hemoglobin has dropped from 14.5-11.3. Plans: Zofran alternating with Reglan as needed for nausea or vomiting. Pain control with Dilaudid as needed. Start Ativan as needed for anxiety. Protonix 40 mg IV daily. Clear liquid diet and advance diet as tolerated. Follow GI consultation. Hemoglobin down from 14.5-11.3. Patient has received IVF and has had no further hematemesis since yesterday. All her cell lines are down, possible dilution. Plans: Repeat CBC in the morning. [id number] glucose 129. No history of diabetes. Plans: Follow A1c. UA showing blood. Patient is on her menses. Plans: Nothing further to do. Patient endorses using marijuana. Plans: Advised to quit. Ativan as needed for anxiety. [Patient is shown improvement since admission. She is afraid that her symptoms will appear once the IV medication wears off. Her hemoglobin has decreased considerably this morning. GI consultation pending. We will likely observe her overnight and plan for possible discharge tomorrow morning if hemoglobin is stable and her symptoms are well managed.] Health Concerns: CT abdomen and pelvis Patient Condition at Discharge: Stable Plan - Discharge Summary Discharge Rx Participant: No New Discharge Prescriptions: No Action Ondansetron [Zofran ODT] 8 mg PO Q6H PRN PRN Reason: Nausea Discharge Medication List Ondansetron [Zofran ODT] 8 mg PO Q6H PRN 10/14/19 [History] Follow up Appointment(s)/Referral(s): Troy Schwab MD [Primary Care Provider] - 1-2 days
[2019-10-15 14:47] LABS: Hemoglobin A1C 5.4 % (4.0-6.0)
[2019-10-15 15:08] VITALS: BP 103/67; TEMP 97.8
--- NOTE | 2019-10-15 17:02 | CONS ---
CONSULTATION DATE OF DICTATION: 10/15/2019 REASON FOR CONSULTATION: Nausea, vomiting. HISTORY: The patient is a 39-year-old, pleasant white female who was diagnosed with idiopathic gastroparesis approximately 6 years ago, admitted to the hospital with intense episodes of nausea and vomiting that started 2 days ago. She started having some epigastric discomfort followed by several episodes of nausea and vomiting and eventually turned into coffee-grounds emesis. She had about 4 episodes of coffee-ground emesis. She came to the emergency room last night and subsequently admitted to hospital for further evaluation. This morning, she is feeling better. The pain has improved. She had no further episodes of nausea and vomiting in the last 12 hours. The patient states that she was investigated extensively in the past. She underwent a couple of upper endoscopies at the time of diagnosis. She also had EGD with Botox of the pyloric sphincter performed at [facility] last year with some relief. She has these episodes that happened at least once a month. Lasts for a couple of days and resolves. But she usually gets admitted to the hospital at least 3- 4 times a year because of intense symptoms. She denies any fever, chills, night sweats. PAST MEDICAL HISTORY: Significant for GERD, idiopathic gastroparesis, hypertension, hyperlipidemia, back pain. PAST SURGICAL HISTORY: Appendectomy, tubal ligation, multiple EGDs with Botox of the pyloric sphincter MEDICATIONS: Medications at home include Zofran. ALLERGIES: TO BACTRIM. SOCIAL HISTORY: Chronic smoker. No alcohol use. FAMILY HISTORY: Mother has breast cancer. Father alcoholism. REVIEW OF SYSTEMS: CARDIOPULMONARY: No chest pain, shortness of breath. GENITOURINARY: No dysuria or hematuria. MUSCULOSKELETAL unremarkable. SKIN unremarkable. ENDOCRINE unremarkable. PSYCHIATRIC unremarkable. NEUROLOGY unremarkable. ENT/vision unremarkable. CONSTITUTIONAL: No recent weight loss. No fever, chills, night sweats. PHYSICAL EXAMINATION: ABDOMEN: Soft. There was mild tenderness in the epigastric area. Bowel sounds are positive. No organomegaly. EXTREMITIES: No pedal edema. SKIN: No rashes. NEUROLOGIC: Alert and oriented x3. No focal deficits. LABS: Done today WBC 8.5. Hemoglobin 14.5, platelets normal. Today hemoglobin is down to 11.3, WBC 4.9, platelets are normal. Basic metabolic panel is within normal limits. IMPRESSION: 1. This is a lady who presents to the hospital with multiple episodes of nausea, vomiting, and few episodes of coffee-ground emesis that started yesterday morning associated with severe epigastric pain and heartburn. The patient states that she was diagnosed with idiopathic gastroparesis 6 years ago. She has been having intermittent episodes requiring hospitalization. Last upper endoscopy was performed at [facility] and she received Botox of the pyloric sphincter with some relief in her symptoms. She denies being on any maintenance medications at home except for Zofran as needed. She is feeling better in the last few hours. 2. Upper gastrointestinal bleed, probably related to Maye-Nelson tear from intense nausea vomiting. RECOMMENDATIONS: 1. Continue with Protonix 40 mg. 2. Zofran and Reglan as needed for nausea. 3. Clear liquid diet and advance as tolerated. 4. No plans on any endoscopy intervention at the present time. Thank you for this consultation. We will continue to follow with you closely during her hospital stay. MMODL / IJN: [id number] /
== END 2019-10-15 15:05 | disposition home or self-care (01) ==
LOC: EC 13:12 → 4MS4W 16:51
PROVIDERS: ADMIT Family Medicine; ATTEND Family Medicine
DX: K29.71 Gastritis, unspecified, with bleeding (principal); K31.84 Gastroparesis; K92.0 Hematemesis; R00.0 Tachycardia, unspecified; K21.9 Gastro-esophageal reflux disease without esophagitis; E78.5 Hyperlipidemia, unspecified; I10 Essential (primary) hypertension; Z86.69 Personal history of other diseases of the nervous system and sense organs; R82.90 Unspecified abnormal findings in urine; R73.9 Hyperglycemia, unspecified; G43.909 Migraine, unspecified, not intractable, without status migrainosus; Z98.51 Tubal ligation status; D64.9 Anemia, unspecified; F41.9 Anxiety disorder, unspecified; F32.9 Major depressive disorder, single episode, unspecified; F17.200 Nicotine dependence, unspecified, uncomplicated; Z80.3 Family history of malignant neoplasm of breast; Z83.49 Family history of other endocrine, nutritional and metabolic diseases; Z81.8 Family history of other mental and behavioral disorders; Z81.1 Family history of alcohol abuse and dependence; Z79.899 Other long term (current) drug therapy; Z88.2 Allergy status to sulfonamides; R10.13 Epigastric pain
CPT/HCPCS: 96376 ×2; 96375 ×2; 96374; 99285; 36415; 80053; 82150; 83690; 85025; 85027; 81001; 83036; 74177; G0378 ×2; J1200; J2765 ×2; J2405 ×2; C9113; J1170 ×2; Q9967

== ENCOUNTER 2019-11-06 13:58 | Emergency (ER) | payer MEDICARE ==
[2019-11-06] MEDS ORDERED: METOCLOPRAMIDE 5 MG/ML 2 ML VIAL IVP STA (14:34)
[2019-11-06] MEDS ORDERED: SODIUM CHLORIDE 0.9% 1,000 ML IV STA ×2 (14:34→16:27)
[2019-11-06] MEDS ORDERED: MORPHINE SULFATE 4 MG/ML SYRINGE IV STA (14:37)
--- NOTE | 2019-11-06 14:39 | ED ---
General Adult HPI - General Chief complaint: Nausea/Vomiting/Diarrhea Stated complaint: Vomiting/abd pain Time Seen by Provider: 11/06/19 14:16 Source: patient, RN notes reviewed, old records reviewed Mode of arrival: ambulatory Limitations: no limitations - History of Present Illness Initial comments: 39-year-old female patient presents to ED for chief complaint of nausea vomiting abdominal cramping. Patient reports that she has history of gastroparesis. Whenever her menses start she expresses that nausea vomiting abdominal cramping. Patient what her menses started yesterday and she is once again experiencing these symptoms. Reports to the symptoms are typical for her however very uncomfortable. Denies any other complaints at this time. Systemic: Pt denies fatigue, fever/chills, rash. Pt denies weakness, night sweats, weight loss. Neuro: Pt denies headache, visual disturbances, syncope or pre-syncope. HEENT: Pt denies ocular discharge or irritation, otalgia, rhinorrhea, pharyngitis or notable lymphadenopathy. Cardiopulmonary: Pt denies chest pain, SOB, heart palpitations, dyspnea on exertion. Abdominal/GI: Pt denies abdominal pain, n/v/d. : Pt denies dysuria, burning w/ urination, frequency/urgency. Denies new onset urinary or bowel incontinence. MSK: Pt denies myalgia, loss of strength or function in extremities. Neuro: Pt denies new onset weakness, paresthesias. - Related Data Previous Rx's Medication Instructions Recorded Ondansetron [Zofran ODT] 8 mg PO Q6H PRN #30 tab 10/15/19 Cephalexin [Keflex] 500 mg PO Q6HR 10 Days #40 cap 11/06/19 Allergies Allergy/AdvReac Type Severity Reaction Status Date / Time sulfamethoxazole Allergy Rash/Hives Verified 11/06/19 14:24 [From Bactrim] trimethoprim [From Bactrim] Allergy Rash/Hives Verified 11/06/19 14:24 Review of Systems ROS Statement: Those systems with pertinent positive or pertinent negative responses have been documented in the HPI. ROS Other: All systems not noted in ROS Statement are negative. Past Medical History Past Medical History: GERD/Reflux, Hyperlipidemia, Musculoskeletal Disorder, Neurologic Disorder Additional Past Medical History / Comment(s): herniated disc, gastritis, gastroparesis, migraines, esophageal tears, History of Any Multi-Drug Resistant Organisms: None Reported Past Surgical History: Appendectomy, Tubal Ligation Additional Past Surgical History / Comment(s): Appendectomy, tubal ligation, EGD. Past Anesthesia/Blood Transfusion Reactions: No Reported Reaction Additional Past Anesthesia/Blood Transfusion Reaction / Comment(s): never had blood transfusion. Past Psychological History: Anxiety, Depression Smoking Status: Current every day smoker Past Alcohol Use History: None Reported Past Drug Use History: Marijuana - Past Family History Mother Family Medical History: Cancer (Mother is 60-year-old has history of breast cancer and hypothyroidism.) Father Family Medical History: No Reported History (Father at age 54 from alcoholism and also has bipolar disorder.) Brother(s) Family Medical History: Neurologic Disorder (Patient has 2 brothers one of them with brain surgery.) Sister(s) Family Medical History: No Reported History (Patient has 2 sisters and one half- sister who was involved in a motor vehicle accident) Son(s) Family Medical History: No Reported History (Patient has 2 sons no major medical problems) Daughter(s) Family Medical History: No Reported History (Patient has one daughter no major medical problems) General Exam - General Exam Comments Initial Comments: Constitutional: NAD, AOX3, Pt has pleasant affect. HEENT: NC/AT, trachea midline, neck supple, no lymphadenopathy. Posterior pharynx non erythematous, without exudates. External ears appear normal, without discharge. Mucous membranes moist. Eyes PERRLA, EOM intact. There is no scleral icterus. No pallor noted. Cardiopulmonary: RRR, no murmurs, rubs or gallops, no JVD noted. Lungs CTAB in anterior and posterior du. No peripheral edema. Abdominal exam: Abdomen soft and non-distended. Generalized tenderness to palpation in all 4 quadrants, no focal area of tenderness. No guarding or rigidity.. Bowel sounds active in LLQ. No hepatosplenomegaly. No ecchymosis Neuro: CN II-XII grossly intact. No nuchal rigidity. No raccon eyes, no cota sign, no hemotympanum. No cervical spinal tenderness. MSK: No posterior calf tenderness bilaterally, homans sign negative bilaterally. Posterior tibialis and radial pulse +2 bilaterally. Sensation intact in upper and lower extremities. Full active ROM in upper and lower extremities, 5/5 stregnth. Limitations: no limitations Course Vital Signs 11/06/19 11/06/19 14:21 16:10 Temperature 97.2 F L 96.9 F L Pulse Rate 76 65 Respiratory 18 20 Rate Blood Pressure 150/82 123/70 O2 Sat by Pulse 100 98 Oximetry Medical Decision Making - Medical Decision Making 39-year-old female patient presents to ED for chief complaint of nausea vomiting abdominal cramping. Patient reports that she has history of gastroparesis. Whenever her menses start she expresses that nausea vomiting abdominal cramping. Patient what her menses started yesterday and she is once again experiencing these symptoms. Reports to the symptoms are typical for her however very uncomfortable. Denies any other complaints at this time. Patient vital signs are stable, afebrile. Physical exam displayed:Abdomen soft and non-distended. Generalized tenderness to palpation in all 4 quadrants, no focal area of tenderness. No guarding or rigidity.. Bowel sounds active in LLQ. No hepatosplenomegaly. No ecchymosis laboratory investigations revealed mild dehydration. Urine displayed hematuria, 50 white cells, and bacteria, ketonuria. Ketones are likely due to starvation ketosis. Patient feeling much improved with rehydration the medics, analgesia. Patient discharged with antibiotic coverage for possible urinary tract infection. Case discussed in depth with Dr. Nogueira. - Lab Data Result diagrams: 11/06/19 14:42 11/06/19 14:42 Lab Results 11/06/19 11/06/19 11/06/19 Range/Units 14:42 14:42 14:42 WBC 8.4 (3.8-10.6) k/uL RBC 4.55 (3.80-5.40) m/uL Hgb 15.0 D (11.4-16.0) gm/dL Hct 44.0 (34.0-46.0) % MCV 96.8 (80.0-100.0) fL MCH 33.0 (25.0-35.0) pg MCHC 34.1 (31.0-37.0) g/dL RDW 12.0 (11.5-15.5) % Plt Count 397 (150-450) k/uL Neutrophils % 75 % Lymphocytes % 19 % Monocytes % 5 % Eosinophils % 0 % Basophils % 0 % Neutrophils # 6.3 (1.3-7.7) k/uL Lymphocytes # 1.6 (1.0-4.8) k/uL Monocytes # 0.4 (0-1.0) k/uL Eosinophils # 0.0 (0-0.7) k/uL Basophils # 0.0 (0-0.2) k/uL Sodium 141 (137-145) mmol/L Potassium 4.4 (3.5-5.1) mmol/L Chloride 108 H (98-107) mmol/L Carbon Dioxide 18 L (22-30) mmol/L Anion Gap 15 mmol/L BUN 10 (7-17) mg/dL Creatinine 0.65 (0.52-1.04) mg/dL Est GFR (CKD-EPI)AfAm >90 (>60 ml/min/1.73 sqM) Est GFR (CKD-EPI)NonAf >90 (>60 ml/min/1.73 sqM) Glucose 130 H (74-99) mg/dL Plasma Lactic Acid Jose 2.0 (0.7-2.0) mmol/L Calcium 10.4 H (8.4-10.2) mg/dL Total Bilirubin 1.1 (0.2-1.3) mg/dL AST 24 (14-36) U/L ALT 17 (4-34) U/L Alkaline Phosphatase 82 (38-126) U/L Total Protein 8.7 H (6.3-8.2) g/dL Albumin 5.0 (3.5-5.0) g/dL Lipase 29 (23-300) U/L Urine Color Urine Appearance (Clear) Urine pH (5.0-8.0) Ur Specific [place] (1.001-1.035) Urine Protein (Negative) Urine Glucose (UA) (Negative) Urine Ketones (Negative) Urine Blood (Negative) Urine Nitrite (Negative) Urine Bilirubin (Negative) Urine Urobilinogen (<2.0) mg/dL Ur Leukocyte Esterase (Negative) Urine RBC (0-5) /hpf Urine WBC (0-5) /hpf Ur Squamous Epith Cells (0-4) /hpf Urine Bacteria (None) /hpf Urine Mucus (None) /hpf Urine HCG, Qual (Not Detectd) 11/06/19 11/06/19 Range/Units 14:42 14:42 WBC (3.8-10.6) k/uL RBC (3.80-5.40) m/uL Hgb (11.4-16.0) gm/dL Hct (34.0-46.0) % MCV (80.0-100.0) fL MCH (25.0-35.0) pg MCHC (31.0-37.0) g/dL RDW (11.5-15.5) % Plt Count (150-450) k/uL Neutrophils % % Lymphocytes % % Monocytes % % Eosinophils % % Basophils % % Neutrophils # (1.3-7.7) k/uL Lymphocytes # (1.0-4.8) k/uL Monocytes # (0-1.0) k/uL Eosinophils # (0-0.7) k/uL Basophils # (0-0.2) k/uL Sodium (137-145) mmol/L Potassium (3.5-5.1) mmol/L Chloride (98-107) mmol/L Carbon Dioxide (22-30) mmol/L Anion Gap mmol/L BUN (7-17) mg/dL Creatinine (0.52-1.04) mg/dL Est GFR (CKD-EPI)AfAm (>60 ml/min/1.73 sqM) Est GFR (CKD-EPI)NonAf (>60 ml/min/1.73 sqM) Glucose (74-99) mg/dL Plasma Lactic Acid Jose (0.7-2.0) mmol/L Calcium (8.4-10.2) mg/dL Total Bilirubin (0.2-1.3) mg/dL AST (14-36) U/L ALT (4-34) U/L Alkaline Phosphatase (38-126) U/L Total Protein (6.3-8.2) g/dL Albumin (3.5-5.0) g/dL Lipase (23-300) U/L Urine Color Dark Brown Urine Appearance Turbid H (Clear) Urine pH 6.0 (5.0-8.0) Ur Specific [place] 1.026 (1.001-1.035) Urine Protein 3+ H (Negative) Urine Glucose (UA) Trace H (Negative) Urine Ketones 3+ H (Negative) Urine Blood Large H (Negative) Urine Nitrite Negative (Negative) Urine Bilirubin Negative (Negative) Urine Urobilinogen 3.0 (<2.0) mg/dL Ur Leukocyte Esterase Small H (Negative) Urine RBC >182 H (0-5) /hpf Urine WBC 50 H (0-5) /hpf Ur Squamous Epith Cells 15 H (0-4) /hpf Urine Bacteria Many H (None) /hpf Urine Mucus Many H (None) /hpf Urine HCG, Qual Not Detected (Not Detectd) Disposition Clinical Impression: Nausea and vomiting Disposition: HOME SELF-CARE Condition: Stable Instructions (If sedation given, give patient instructions): Acute Nausea and Vomiting (ED) Additional Instructions: follow-up with primary care provider tomorrow. Return to ER if condition worsens. Take antibiotic as directed. Prescriptions: Cephalexin [Keflex] 500 mg PO Q6HR 10 Days #40 cap Is patient prescribed a controlled substance at d/c from ED?: No Referrals: None,Stated [Primary Care Provider] - 1-2 days [facility] [NON-STAFF] - 1-2 days
[2019-11-06 15:22] LABS: Basophils % (A) 0 %; Eosinophils % (A) 0 %; Lymphocytes # (A) 1.6 k/uL (1.0-4.8); Lymphocytes % (A) 19 %; MCHC 34.1 g/dL (31.0-37.0); MCV 96.8 fL (80.0-100.0); Mean Platelet Volume 8.3; Monocytes # (A) 0.4 k/uL (0-1.0); Monocytes % (A) 5 %; Neutrophils # (A) 6.3 k/uL (1.3-7.7); Neutrophils % (A) 75 %; Platelet Count 397 k/uL (150-450); RBC 4.55 m/uL (3.80-5.40); WBC 8.4 k/uL (3.8-10.6)
[2019-11-06 15:31] LABS: ALT 17 U/L (4-34); African American GFR (CKD) >90 (>60 ml/min/1.73 sqM); Anion Gap 15 mmol/L; Blood Urea Nitrogen 10 mg/dL (7-17); Calcium 10.4 mg/dL (8.4-10.2); Carbon Dioxide 18 mmol/L (22-30); Chloride 108 mmol/L (98-107); Glucose 130 mg/dL (74-99); Non-African American GFR(CKD) >90 (>60 ml/min/1.73 sqM); Sodium 141 mmol/L (137-145); Total Bilirubin 1.1 mg/dL (0.2-1.3); Total Protein 8.7 g/dL (6.3-8.2)
[2019-11-06 15:34] LABS: Appearance,Urine Turbid (Clear); Bacteria,Urine Many /hpf; Bilirubin,Urine Negative (Negative); Blood,Urine Large (Negative); Color,Urine Dark Brown; Glucose,Urine (UA) Trace (Negative); Ketones,Urine 3+ (Negative); Leukocyte Esterase,Urine Small (Negative); Mucus,Urine Many /hpf; Nitrite,Urine Negative (Negative); Protein,Urine 3+ (Negative); RBC,Urine >182 /hpf (0-5); Specific Gravity,Urine 1.026 (1.001-1.035); Squamous Epithelial Cell,Urine 15 /hpf (0-4); WBC,Urine 50 /hpf (0-5)
[2019-11-06 15:36] LABS: AST 24 U/L (14-36); Alkaline Phosphatase 82 U/L (38-126); Potassium 4.4 mmol/L (3.5-5.1)
[2019-11-06] MEDS ORDERED: HYDROmorphone 1 MG/ML 1 ML SYRINGE IVP STA (15:58)
--- NOTE | 2019-11-06 16:12 | XR ---
EXAMINATION TYPE: XR KUB DATE OF EXAM: 11/06/2019 COMPARISON: 10/12/2019 HISTORY: Abdominal pain TECHNIQUE: 2 views upright FINDINGS: Bowel gas pattern is normal. There is no sign of intestinal obstruction or pneumoperitoneum . Fecal pattern is normal. There is no sign of a mass. Lung bases are clear. IMPRESSION: Nonacute abdomen. No change.
[2019-11-06 18:22] VITALS: BP 127/89; PULSE 62; RESP 18; TEMP 98.7
== END 2019-11-06 18:21 | disposition home or self-care (01) ==
LOC: EC 13:58
DX: R11.2 Nausea with vomiting, unspecified (principal); E86.0 Dehydration; R31.9 Hematuria, unspecified; R82.71 Bacteriuria; R82.4 Acetonuria; R10.9 Unspecified abdominal pain; F17.200 Nicotine dependence, unspecified, uncomplicated; Z88.2 Allergy status to sulfonamides; Z87.19 Personal history of other diseases of the digestive system; Z90.49 Acquired absence of other specified parts of digestive tract
CPT/HCPCS: 36415; 80053; 83605; 83690; 85025; 81001; 81025; 87086; 74018; 99284; 96365; 96375 ×3; 96361; J2270; J2765; J0696; J1170

== ENCOUNTER 2019-11-26 15:14 | Emergency (ER) | payer MEDICARE ==
[2019-11-26] MEDS ORDERED: SODIUM CHLORIDE 0.9% 1,000 ML IV STA ×2 (16:31→18:51)
[2019-11-26] MEDS ORDERED: ONDANSETRON 4 MG/2 ML VIAL IVP STA (16:31)
[2019-11-26] MEDS ORDERED: FAMOTIDINE 20 MG/2 ML VIAL IV STA (16:32)
[2019-11-26] MEDS ORDERED: PANTOPRAZOLE 40 MG/10 ML VIAL IVP STA (16:35)
[2019-11-26] MEDS ORDERED: HYDROmorphone 1 MG/ML 1 ML SYRINGE IVP STA (17:02)
[2019-11-26 17:31] LABS: Basophils % (A) 0 %; Eosinophils # (A) 0.1 k/uL (0-0.7); Eosinophils % (A) 1 %; HCT 45.8 % (34.0-46.0); HGB 15.2 gm/dL (11.4-16.0); Lymphocytes # (A) 1.4 k/uL (1.0-4.8); Lymphocytes % (A) 14 %; MCHC 33.1 g/dL (31.0-37.0); MCV 96.4 fL (80.0-100.0); Mean Platelet Volume 7.9; Monocytes # (A) 0.3 k/uL (0-1.0); Monocytes % (A) 3 %; Neutrophils % (A) 81 %; Platelet Count 393 k/uL (150-450); RBC 4.75 m/uL (3.80-5.40); RDW 11.8 % (11.5-15.5); WBC 9.9 k/uL (3.8-10.6)
[2019-11-26 17:40] LABS: ALT 16 U/L (4-34); AST 24 U/L (14-36); African American GFR (CKD) >90 (>60 ml/min/1.73 sqM); Albumin 5.1 g/dL (3.5-5.0); Alkaline Phosphatase 90 U/L (38-126); Amylase 63 U/L (30-110); Anion Gap 15 mmol/L; Blood Urea Nitrogen 10 mg/dL (7-17); Calcium 10.8 mg/dL (8.4-10.2); Carbon Dioxide 17 mmol/L (22-30); Chloride 108 mmol/L (98-107); Glucose 152 mg/dL (74-99); Non-African American GFR(CKD) >90 (>60 ml/min/1.73 sqM); Potassium 4.8 mmol/L (3.5-5.1); Sodium 140 mmol/L (137-145); Total Bilirubin 0.8 mg/dL (0.2-1.3); Total Protein 8.8 g/dL (6.3-8.2)
[2019-11-26] MEDS ORDERED: METOCLOPRAMIDE 5 MG/ML 2 ML VIAL IVP STA (18:51)
[2019-11-26] MEDS ORDERED: diphenhydrAMINE 50 MG/ML 1 ML VIAL IVP STA (18:51)
[2019-11-26 19:26] LABS: Appearance,Urine Cloudy (Clear); Bilirubin,Urine Negative (Negative); Blood,Urine Small (Negative); Color,Urine Yellow; Glucose,Urine (UA) Trace (Negative); Hyaline Casts,Urine 29 /lpf (0-2); Ketones,Urine 3+ (Negative); Leukocyte Esterase,Urine Negative (Negative); Mucus,Urine Many /hpf; Nitrite,Urine Negative (Negative); PH, Urine 5.5 (5.0-8.0); Protein,Urine 1+ (Negative); RBC,Urine 4 /hpf (0-5); Specific Gravity,Urine 1.026 (1.001-1.035); Squamous Epithelial Cell,Urine 6 /hpf (0-4); WBC,Urine 1 /hpf (0-5)
--- NOTE | 2019-11-26 19:43 | ED ---
General Adult HPI - General Chief complaint: Nausea/Vomiting/Diarrhea Stated complaint: Abd pain Time Seen by Provider: 11/26/19 16:30 Source: patient Mode of arrival: wheelchair Limitations: no limitations - History of Present Illness Initial comments: Patient is a 39-year-old female with history of gastroparesis presenting to the emergency department with a chief complaint of abdominal pain nausea vomiting. She reports her symptoms began this morning with sudden onset of nausea and multiple episodes of vomiting. Patient reports for the last one hour she noticed a blood tinged vomit. She states not being able to eat anything. She reports epigastric abdominal pain. She states this is typical for her condition. She reports coming to the ED multiple times for the same chief complaint. She states typically she receives symptomatic control and is discharged. Denies any diarrhea constipation denies night sweats fevers or chills. - Related Data Previous Rx's Medication Instructions Recorded Ondansetron [Zofran ODT] 8 mg PO Q6H PRN #30 tab 10/15/19 Cephalexin [Keflex] 500 mg PO Q6HR 10 Days #40 cap 11/06/19 Ondansetron Odt [Zofran Odt] 4 mg PO Q8HR PRN #20 tab 11/26/19 Allergies Allergy/AdvReac Type Severity Reaction Status Date / Time sulfamethoxazole Allergy Rash/Hives Verified 11/26/19 15:59 [From Bactrim] trimethoprim [From Bactrim] Allergy Rash/Hives Verified 11/26/19 15:59 Review of Systems ROS Statement: Those systems with pertinent positive or pertinent negative responses have been documented in the HPI. ROS Other: All systems not noted in ROS Statement are negative. Past Medical History Past Medical History: GERD/Reflux, Hyperlipidemia, Musculoskeletal Disorder, Neurologic Disorder Additional Past Medical History / Comment(s): herniated disc, gastritis, gastroparesis, migraines, esophageal tears, History of Any Multi-Drug Resistant Organisms: None Reported Past Surgical History: Appendectomy, Tubal Ligation Additional Past Surgical History / Comment(s): Appendectomy, tubal ligation, EGD. Past Anesthesia/Blood Transfusion Reactions: No Reported Reaction Additional Past Anesthesia/Blood Transfusion Reaction / Comment(s): never had blood transfusion. Past Psychological History: Anxiety, Depression Smoking Status: Current every day smoker Past Alcohol Use History: None Reported Past Drug Use History: Marijuana - Past Family History Mother Family Medical History: Cancer (Mother is 60-year-old has history of breast cancer and hypothyroidism.) Father Family Medical History: No Reported History (Father at age 54 from alcoholism and also has bipolar disorder.) Brother(s) Family Medical History: Neurologic Disorder (Patient has 2 brothers one of them with brain surgery.) Sister(s) Family Medical History: No Reported History (Patient has 2 sisters and one half- sister who was involved in a motor vehicle accident) Son(s) Family Medical History: No Reported History (Patient has 2 sons no major medical problems) Daughter(s) Family Medical History: No Reported History (Patient has one daughter no major medical problems) General Exam Limitations: no limitations General appearance: alert, in distress Head exam: Present: atraumatic, normocephalic, normal inspection Eye exam: Present: normal appearance, PERRL, EOMI Pupils: Present: normal accommodation ENT exam: Present: normal exam, normal oropharynx, mucous membranes dry, TM's normal bilaterally, normal external ear exam Neck exam: Present: normal inspection, full ROM Respiratory exam: Present: normal lung sounds bilaterally Cardiovascular Exam: Present: regular rate, normal rhythm, normal heart sounds GI/Abdominal exam: Present: soft, tenderness (Epigastric pain), normal bowel sounds. Absent: distended Extremities exam: Present: normal inspection, full ROM, normal capillary refill Back exam: Present: normal inspection, full ROM Neurological exam: Present: alert, oriented X3 Psychiatric exam: Present: normal affect, normal mood Skin exam: Present: warm, dry, intact, normal color Course Vital Signs 11/26/19 11/26/19 11/26/19 15:58 19:04 21:15 Temperature 97.8 F 98.4 F Pulse Rate 73 92 70 Respiratory 18 18 16 Rate Blood Pressure 161/89 142/86 110/68 O2 Sat by Pulse 98 96 98 Oximetry Medical Decision Making - Medical Decision Making Patient is a 39-year-old female history gastroparesis presenting to the emergency room with a chief complaint of nausea vomiting abdominal pain. On exam patient does appear to be distressed with multiple episodes of vomiting in continuous nausea. She does have epigastric abdominal pain. Exam patient is tender to the epigastric region. States this is very common whenever she gets acute flareups right before or after her menstrual period. There was mild episode of hematemesis. I suspect this is a Maye-Nelson tear secondary to multiple episodes of vomiting today. Patient was given 2 L of fluids. Patient given Zofran, Reglan and Benadryl. Reevaluation patient states the nausea still there. Patient given Phenergan. Patient was also given Dilaudid for analgesia. CBC CMP are unremarkable for the most part. UA shows elevated ketones suggesting dehydration due to repetitive vomiting episodes. At this time patient will be signed out to Dr. Corea - Lab Data Result diagrams: 11/26/19 17:18 11/26/19 17:18 Lab Results 11/26/19 11/26/19 11/26/19 Range/Units 17:18 17:18 18:57 WBC 9.9 (3.8-10.6) k/uL RBC 4.75 (3.80-5.40) m/uL Hgb 15.2 (11.4-16.0) gm/dL Hct 45.8 (34.0-46.0) % MCV 96.4 (80.0-100.0) fL MCH 32.0 (25.0-35.0) pg MCHC 33.1 (31.0-37.0) g/dL RDW 11.8 (11.5-15.5) % Plt Count 393 (150-450) k/uL Neutrophils % 81 % Lymphocytes % 14 % Monocytes % 3 % Eosinophils % 1 % Basophils % 0 % Neutrophils # 8.0 H (1.3-7.7) k/uL Lymphocytes # 1.4 (1.0-4.8) k/uL Monocytes # 0.3 (0-1.0) k/uL Eosinophils # 0.1 (0-0.7) k/uL Basophils # 0.0 (0-0.2) k/uL Sodium 140 (137-145) mmol/L Potassium 4.8 (3.5-5.1) mmol/L Chloride 108 H (98-107) mmol/L Carbon Dioxide 17 L (22-30) mmol/L Anion Gap 15 mmol/L BUN 10 (7-17) mg/dL Creatinine 0.76 (0.52-1.04) mg/dL Est GFR (CKD-EPI)AfAm >90 (>60 ml/min/1.73 sqM) Est GFR (CKD-EPI)NonAf >90 (>60 ml/min/1.73 sqM) Glucose 152 H (74-99) mg/dL Calcium 10.8 H (8.4-10.2) mg/dL Total Bilirubin 0.8 (0.2-1.3) mg/dL AST 24 (14-36) U/L ALT 16 (4-34) U/L Alkaline Phosphatase 90 (38-126) U/L Total Protein 8.8 H (6.3-8.2) g/dL Albumin 5.1 H (3.5-5.0) g/dL Amylase 63 (30-110) U/L Lipase 47 (23-300) U/L Urine Color Yellow Urine Appearance Cloudy H (Clear) Urine pH 5.5 (5.0-8.0) Ur Specific [place] 1.026 (1.001-1.035) Urine Protein 1+ H (Negative) Urine Glucose (UA) Trace H (Negative) Urine Ketones 3+ H (Negative) Urine Blood Small H (Negative) Urine Nitrite Negative (Negative) Urine Bilirubin Negative (Negative) Urine Urobilinogen 2.0 (<2.0) mg/dL Ur Leukocyte Esterase Negative (Negative) Urine RBC 4 (0-5) /hpf Urine WBC 1 (0-5) /hpf Ur Squamous Epith Cells 6 H (0-4) /hpf Hyaline Casts 29 H (0-2) /lpf Urine Mucus Many H (None) /hpf Disposition Clinical Impression: Nausea & vomiting, Abdominal pain Disposition: HOME SELF-CARE Condition: Stable Instructions (If sedation given, give patient instructions): Abdominal Pain (ED) Additional Instructions: Please follow up with a internet cafe manager. Please return to emergency department is symptoms worsen. Take prescribed medication as directed Prescriptions: Ondansetron Odt [Zofran Odt] 4 mg PO Q8HR PRN #20 tab PRN Reason: Nausea Is patient prescribed a controlled substance at d/c from ED?: No Referrals: None,Stated [Primary Care Provider] - 1-2 days Time of Disposition: 20:52
[2019-11-26 21:16] VITALS: RESP 16
[2019-11-26] MEDS ORDERED: PROMETHAZINE INJ 25 MG in SODIUM CHLORIDE 0.9% 50 ML IVPB STA (21:25)
[2019-11-26 22:23] VITALS: BP 114/62; PULSE 74; TEMP 98.7
== END 2019-11-26 22:23 | disposition home or self-care (01) ==
LOC: EC 15:14
DX: R10.13 Epigastric pain (principal); K92.0 Hematemesis; R82.4 Acetonuria; F17.200 Nicotine dependence, unspecified, uncomplicated; Z88.2 Allergy status to sulfonamides; Z87.19 Personal history of other diseases of the digestive system; Z90.49 Acquired absence of other specified parts of digestive tract; Z53.8 Procedure and treatment not carried out for other reasons
CPT/HCPCS: 36415; 80053; 82150; 83690; 85025; 81001; 99284; 96365; 96375 ×5; 96361 ×4; J1200; J2550; J2765; J2405; J1170; C9113

== ENCOUNTER 2019-12-11 23:54 | Observation (INO) | payer MEDICARE ==
[2019-12-12] MEDS ORDERED: ONDANSETRON 4 MG/2 ML VIAL IVP STA (00:06)
[2019-12-12] MEDS ORDERED: SODIUM CHLORIDE 0.9% 1,000 ML IV STA ×2 (00:06)
[2019-12-12] MEDS ORDERED: SODIUM CHLORIDE 0.9% 500 ML 500 ML IV STA (00:06)
[2019-12-12] MEDS ORDERED: HYDROmorphone 1 MG/ML 1 ML SYRINGE IVP STA (00:16)
[2019-12-12] MEDS ORDERED: LORazepam 2 MG/ML INJ IV STA (00:16)
[2019-12-12] MEDS ORDERED: diphenhydrAMINE 50 MG/ML 1 ML VIAL IVP STA (00:16)
[2019-12-12] MEDS ORDERED: PANTOPRAZOLE 40 MG/10 ML VIAL IVP STA (00:16)
--- NOTE | 2019-12-12 00:16 | ED ---
Nausea/Vomiting/Diarrhea HPI - General Chief complaint: Nausea/Vomiting/Diarrhea Stated complaint: Abdominal Pain, vomiting Time Seen by Provider: 12/12/19 00:05 Source: patient, RN notes reviewed, old records reviewed Mode of arrival: ambulatory Limitations: no limitations - History of Present Illness Initial comments: This is a 39-year-old female ER with history of gastroparesis coming of severe abdominal pain and nausea vomiting. Symptoms just like prior gastroparesis episodes with intractable nausea and vomiting. Otherwise no travel history or sick contacts. Patient not having pain medications at home was not prescribed pain medications at home. Persistent nausea vomiting all day progressively worsening with no fevers. No significant or recent surgical history MD complaint: nausea, vomiting, abdominal pain -: hour(s) Description of Vomiting: food contents Location: diffuse Radiation: none Severity: severe Severity scale (1-10): 10 Quality: stabbing, aching Consistency: constant Improves with: none Worsens with: none Associated Symptoms: myalgias, malaise, nausea/vomiting, weakness - Related Data Previous Rx's Medication Instructions Recorded Ondansetron [Zofran ODT] 8 mg PO Q6H PRN #30 tab 10/15/19 Cephalexin [Keflex] 500 mg PO Q6HR 10 Days #40 cap 11/06/19 Ondansetron Odt [Zofran Odt] 4 mg PO Q8HR PRN #20 tab 11/26/19 Allergies Allergy/AdvReac Type Severity Reaction Status Date / Time sulfamethoxazole Allergy Rash/Hives Verified 12/12/19 00:04 [From Bactrim] trimethoprim [From Bactrim] Allergy Rash/Hives Verified 12/12/19 00:04 Review of Systems ROS Statement: Those systems with pertinent positive or pertinent negative responses have been documented in the HPI. ROS Other: All systems not noted in ROS Statement are negative. Past Medical History Past Medical History: GERD/Reflux, Hyperlipidemia, Musculoskeletal Disorder, Neurologic Disorder Additional Past Medical History / Comment(s): herniated disc, gastritis, gastroparesis, migraines, esophageal tears, History of Any Multi-Drug Resistant Organisms: None Reported Past Surgical History: Appendectomy, Tubal Ligation Additional Past Surgical History / Comment(s): Appendectomy, tubal ligation, EGD. Past Anesthesia/Blood Transfusion Reactions: No Reported Reaction Additional Past Anesthesia/Blood Transfusion Reaction / Comment(s): never had blood transfusion. Past Psychological History: Anxiety, Depression Smoking Status: Current every day smoker Past Alcohol Use History: None Reported Past Drug Use History: Marijuana - Past Family History Mother Family Medical History: Cancer (Mother is 60-year-old has history of breast cancer and hypothyroidism.) Father Family Medical History: No Reported History (Father at age 54 from alcoholism and also has bipolar disorder.) Brother(s) Family Medical History: Neurologic Disorder (Patient has 2 brothers one of them with brain surgery.) Sister(s) Family Medical History: No Reported History (Patient has 2 sisters and one half- sister who was involved in a motor vehicle accident) Son(s) Family Medical History: No Reported History (Patient has 2 sons no major medical problems) Daughter(s) Family Medical History: No Reported History (Patient has one daughter no major medical problems) General Exam Limitations: no limitations General appearance: alert, in no apparent distress Head exam: Present: atraumatic, normocephalic, normal inspection Eye exam: Present: normal appearance, PERRL, EOMI. Absent: scleral icterus, con junctival injection, periorbital swelling ENT exam: Present: normal exam, mucous membranes dry Neck exam: Present: normal inspection. Absent: tenderness, meningismus, lymphadenopathy Respiratory exam: Present: normal lung sounds bilaterally. Absent: respiratory distress, wheezes, rales, rhonchi, stridor Cardiovascular Exam: Present: normal rhythm, tachycardia, normal heart sounds. Absent: systolic murmur, diastolic murmur, rubs, gallop, clicks GI/Abdominal exam: Present: soft, normal bowel sounds. Absent: distended, tenderness, guarding, rebound, rigid Extremities exam: Present: normal inspection, full ROM, normal capillary refill. Absent: tenderness, pedal edema, joint swelling, calf tenderness Back exam: Present: normal inspection Neurological exam: Present: alert, oriented X3, CN II-XII intact Psychiatric exam: Present: normal affect, normal mood Skin exam: Present: warm, dry, intact, normal color. Absent: rash Course Vital Signs 12/12/19 00:02 Temperature 97.7 F Pulse Rate 114 H Respiratory 22 Rate Blood Pressure 129/86 O2 Sat by Pulse 96 Oximetry - Reevaluation(s) Reevaluation #1: 12/12/19 01:02 Medical records reviewed including prior ER visits Reevaluation #2: 12/12/19 02:19 No real improvement in symptoms here in the ER - Consultations Consultation #1: spoke w EM bisi for admission Medical Decision Making - Medical Decision Making 39 female here for evaluation for nausea vomiting gastroparesis will admit for symptom management nausea control. Patient symptoms are improving although not resolved still with active vomiting - Lab Data Result diagrams: 12/12/19 00:48 12/12/19 00:48 Lab Results 12/12/19 12/12/19 12/12/19 Range/Units 00:48 00:48 00:48 WBC 16.5 H (3.8-10.6) k/uL RBC 4.40 (3.80-5.40) m/uL Hgb 14.7 (11.4-16.0) gm/dL Hct 42.2 (34.0-46.0) % MCV 96.0 (80.0-100.0) fL MCH 33.4 (25.0-35.0) pg MCHC 34.8 (31.0-37.0) g/dL RDW 12.1 (11.5-15.5) % Plt Count 456 H (150-450) k/uL Neutrophils % 89 % Lymphocytes % 6 % Monocytes % 3 % Eosinophils % 1 % Basophils % 0 % Neutrophils # 14.7 H (1.3-7.7) k/uL Lymphocytes # 1.1 (1.0-4.8) k/uL Monocytes # 0.5 (0-1.0) k/uL Eosinophils # 0.1 (0-0.7) k/uL Basophils # 0.1 (0-0.2) k/uL Sodium 139 (137-145) mmol/L Potassium 4.5 (3.5-5.1) mmol/L Chloride 103 (98-107) mmol/L Carbon Dioxide 21 L (22-30) mmol/L Anion Gap 15 mmol/L BUN 14 (7-17) mg/dL Creatinine 0.99 (0.52-1.04) mg/dL Est GFR (CKD-EPI)AfAm 83 (>60 ml/min/1.73 sqM) Est GFR (CKD-EPI)NonAf 72 (>60 ml/min/1.73 sqM) Glucose 170 H (74-99) mg/dL Plasma Lactic Acid Jose 3.1 H* (0.7-2.0) mmol/L Calcium 10.5 H (8.4-10.2) mg/dL Phosphorus 5.3 H (2.5-4.5) mg/dL Magnesium 1.7 (1.6-2.3) mg/dL Total Bilirubin 0.9 (0.2-1.3) mg/dL AST 28 (14-36) U/L ALT 20 (4-34) U/L Alkaline Phosphatase 93 (38-126) U/L Troponin I (0.000-0.034) ng/mL Total Protein 8.5 H (6.3-8.2) g/dL Albumin 5.1 H (3.5-5.0) g/dL Serum Alcohol <10 mg/dL 12/12/19 Range/Units 00:48 WBC (3.8-10.6) k/uL RBC (3.80-5.40) m/uL Hgb (11.4-16.0) gm/dL Hct (34.0-46.0) % MCV (80.0-100.0) fL MCH (25.0-35.0) pg MCHC (31.0-37.0) g/dL RDW (11.5-15.5) % Plt Count (150-450) k/uL Neutrophils % % Lymphocytes % % Monocytes % % Eosinophils % % Basophils % % Neutrophils # (1.3-7.7) k/uL Lymphocytes # (1.0-4.8) k/uL Monocytes # (0-1.0) k/uL Eosinophils # (0-0.7) k/uL Basophils # (0-0.2) k/uL Sodium (137-145) mmol/L Potassium (3.5-5.1) mmol/L Chloride (98-107) mmol/L Carbon Dioxide (22-30) mmol/L Anion Gap mmol/L BUN (7-17) mg/dL Creatinine (0.52-1.04) mg/dL Est GFR (CKD-EPI)AfAm (>60 ml/min/1.73 sqM) Est GFR (CKD-EPI)NonAf (>60 ml/min/1.73 sqM) Glucose (74-99) mg/dL Plasma Lactic Acid Jose (0.7-2.0) mmol/L Calcium (8.4-10.2) mg/dL Phosphorus (2.5-4.5) mg/dL Magnesium (1.6-2.3) mg/dL Total Bilirubin (0.2-1.3) mg/dL AST (14-36) U/L ALT (4-34) U/L Alkaline Phosphatase (38-126) U/L Troponin I <0.012 (0.000-0.034) ng/mL Total Protein (6.3-8.2) g/dL Albumin (3.5-5.0) g/dL Serum Alcohol mg/dL - EKG Data -: EKG Interpreted by Me (EKG shows sinus rhythm of 73, AR 138, QRS 74, QTc 453) - Radiology Data Radiology results: report reviewed (X-ray abdominal series w chest nonsignif icant), image reviewed Disposition Clinical Impression: Depression, Dehydration, Gastroparesis, Nausea & vomiting, Abdominal pain Disposition: ADMITTED IP TO THIS HOSP Condition: Fair Is patient prescribed a controlled substance at d/c from ED?: No Referrals: Nonstaff,Physician [Primary Care Provider] - 1-2 days
[2019-12-12] MEDS ORDERED: METOCLOPRAMIDE 5 MG/ML 2 ML VIAL IVP STA (00:17)
[2019-12-12 01:05] LABS: Basophils # (A) 0.1 k/uL (0-0.2); Basophils % (A) 0 %; Eosinophils # (A) 0.1 k/uL (0-0.7); Eosinophils % (A) 1 %; HCT 42.2 % (34.0-46.0); HGB 14.7 gm/dL (11.4-16.0); Lymphocytes # (A) 1.1 k/uL (1.0-4.8); Lymphocytes % (A) 6 %; MCH 33.4 pg (25.0-35.0); MCHC 34.8 g/dL (31.0-37.0); Mean Platelet Volume 7.9; Monocytes # (A) 0.5 k/uL (0-1.0); Monocytes % (A) 3 %; Neutrophils # (A) 14.7 k/uL (1.3-7.7); Neutrophils % (A) 89 %; Platelet Count 456 k/uL (150-450); RDW 12.1 % (11.5-15.5); WBC 16.5 k/uL (3.8-10.6)
[2019-12-12 01:11] LABS: ALT 20 U/L (4-34); AST 28 U/L (14-36); African American GFR (CKD) 83 (>60 ml/min/1.73 sqM); Albumin 5.1 g/dL (3.5-5.0); Alcohol <10 mg/dL; Alkaline Phosphatase 93 U/L (38-126); Anion Gap 15 mmol/L; Blood Urea Nitrogen 14 mg/dL (7-17); Calcium 10.5 mg/dL (8.4-10.2); Carbon Dioxide 21 mmol/L (22-30); Chloride 103 mmol/L (98-107); Glucose 170 mg/dL (74-99); Magnesium 1.7 mg/dL (1.6-2.3); Non-African American GFR(CKD) 72 (>60 ml/min/1.73 sqM); Phosphorus 5.3 mg/dL (2.5-4.5); Potassium 4.5 mmol/L (3.5-5.1); Sodium 139 mmol/L (137-145); Total Bilirubin 0.9 mg/dL (0.2-1.3); Total Protein 8.5 g/dL (6.3-8.2)
[2019-12-12] MEDS ORDERED: MORPHINE SULFATE 4 MG/ML SYRINGE IVP STA (02:17)
[2019-12-12] MEDS ORDERED: LORazepam 2 MG/ML INJ IV PRN (02:17)
[2019-12-12] MEDS ORDERED: DICYCLOMINE 10 MG/ML 2 ML AMP IM STA (02:17)
--- NOTE | 2019-12-12 02:51 | XR ---
EXAMINATION TYPE: XR abdomen acute w cxr DATE OF EXAM: 12/12/2019 COMPARISON: 11/06/2019 HISTORY: Abdominal pain TECHNIQUE: 4 views FINDINGS: Heart and mediastinum are normal. Lungs are clear of infiltrate. Bowel gas pattern is marlon l. There is no sign of intestinal obstruction or pneumoperitoneum. Fecal pattern is normal. There are no pathologic calcifications. There is no evidence of a mass. Bony structures are intact. IMPRESSION: Normal chest. Nonacute abdomen. No change.
[2019-12-12] MEDS: MORPHINE SULFATE 4 MG/ML SYRINGE IVP PRN ×3 (03:51→20:28)
[2019-12-12 05:16] LABS: Amorphous Sediment,Urine Occasional /hpf; Appearance,Urine Turbid (Clear); Bilirubin,Urine Negative (Negative); Blood,Urine Small (Negative); Color,Urine Light Orange; Glucose,Urine (UA) Trace (Negative); Hyaline Casts,Urine 95 /lpf (0-2); Ketones,Urine 1+ (Negative); Leukocyte Esterase,Urine Negative (Negative); Mucus,Urine Many /hpf; Nitrite,Urine Negative (Negative); Protein,Urine 1+ (Negative); RBC,Urine 5 /hpf (0-5); Specific Gravity,Urine 1.031 (1.001-1.035); Squamous Epithelial Cell,Urine 2 /hpf (0-4); WBC,Urine 31 /hpf (0-5)
--- NOTE | 2019-12-12 11:40 | P.HPIM ---
History of Present Illness This is a pleasant 39 years old female with past medical history of GERD, hyperlipidemia, musculoskeletal disorder with herniated disc (on marijuana she smokes twice daily), migraine, gastroparesis (desiccated twice as per patient p ositive result), gastritis, depression and anxiety, smokes cigarettes and marijuana. Reasons because of abdominal pain and nausea vomiting. 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 Patient states that currently she has sinus infection with runny nose, and although she denies urinary symptoms however she has suprapubic tenderness and her UA is abnormal. Also patient states that her symptoms comes either immediately before or after her period. Her last menstrual period ended about 2 days ago before her symptoms started. 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 She has elevated WBC of 16.5 K, BMP is unremarkable, creatinine was elevated to 3.1K back to normal at 0.8. Liver enzymes not elevated. Urinalysis is suspicious for infection. Urine test is negative. Acute abdominal series: Normal chest, acute abdomen. EKG no rmal sinus rhythm at [address]-T, QTC is 453 On admission patient is started on several medications including Bentyl, Dilaudid, Ativan, Reglan, Zofran, Protonix and she received 2 L and a half of IV fluids. The patient and morphine 4 mg every 4 hours and Ativan 1 mg every 6 hours. Review of Systems CONSTITUTIONAL: No fever, no malaise, no fatigue. HEENT: No recent visual problems or hearing problems. Denied any sore throat. CARDIOVASCULAR: No orthopnea, PND, no palpitations, no syncope. PULMONARY: No shortness of breath, no cough, no hemoptysis. GASTROINTESTINAL: No diarrhea, no nausea, no vomiting, no abdominal pain. Normoactive bowel sounds. NEUROLOGICAL: No headaches, no weakness, no numbness. HEMATOLOGICAL: Denies any bleeding or petechiae. GENITOURINARY: Denies any burning micturition, frequency, or urgency. MUSCULOSKELETAL/RHEUMATOLOGICAL: Denies any joint pain, swelling, or any muscle pain. ENDOCRINE: Denies any polyuria or polydipsia. Past Medical History Past Medical History: GERD/Reflux, Hyperlipidemia, Musculoskeletal Disorder, Neurologic Disorder Additional Past Medical History / Comment(s): herniated disc, gastritis, gastroparesis, migraines, esophageal tears, History of Any Multi-Drug Resistant Organisms: None Reported Past Surgical History: Appendectomy, Tubal Ligation Additional Past Surgical History / Comment(s): Appendectomy, tubal ligation, EGD. Past Anesthesia/Blood Transfusion Reactions: No Reported Reaction Additional Past Anesthesia/Blood Transfusion Reaction / Comment(s): never had blood transfusion. Past Psychological History: Anxiety, Depression Smoking Status: Current every day smoker Past Alcohol Use History: None Reported Past Drug Use History: Marijuana Additional Drug Use History / Comment(s): patient states she smokes marijuana daily for chronic pain. - Past Family History Mother Family Medical History: Cancer Father Family Medical History: No Reported History Brother(s) Family Medical History: Neurologic Disorder Sister(s) Family Medical History: No Reported History Son(s) Family Medical History: No Reported History Daughter(s) Family Medical History: No Reported History Medications and Allergies Home Medications Medication Instructions Recorded Confirmed Type Ondansetron [Zofran ODT] 8 mg PO Q8H PRN 12/12/19 12/12/19 History Allergies Allergy/AdvReac Type Severity Reaction Status Date / Time sulfamethoxazole Allergy Rash/Hives Verified 12/12/19 09:19 [From Bactrim] trimethoprim [From Bactrim] Allergy Rash/Hives Verified 12/12/19 09:19 Physical Exam Vitals: Vital Signs Temp Pulse Pulse Resp BP BP Pulse Ox 12/12/19 07:00 98.2 F 71 16 97/62 92 L 12/12/19 03:08 98.7 F 86 15 110/70 96 12/12/19 02:30 72 16 101/59 95 12/12/19 00:02 97.7 F 114 H 22 129/86 96 Intake and Output 12/11/19 12/12/1920 22:59 06:59 14:59 Output Total 100 Balance -100 Output: Urine 100 Other: Voiding Method Toilet Weight 63.503 kg GENERAL: The patient is alert and oriented x3, not in any acute distress. Well developed, well nourished. HEENT: Pupils are round and equally reacting to light. EOMI. No scleral icterus. No conjunctival pallor. Normocephalic, atraumatic. No pharyngeal erythema. No thyromegaly. CARDIOVASCULAR: S1 and S2 present. No murmurs, rubs, or gallops. PULMONARY: Chest is clear to auscultation, no wheezing or crackles. -ABDOMEN: Soft, epigastric tenderness with no rebound tenderness or guarding, suprapubic tenderness with no rebound tenderness, nondistended, normoactive bowel sounds. No palpable organomegaly. MUSCULOSKELETAL: No joint swelling or deformity. EXTREMITIES: No cyanosis, clubbing, or pedal edema. NEUROLOGICAL: Gross neurological examination did not reveal any focal deficits. SKIN: No rashes. No petechiae Results CBC & Chem 7: 12/12/19 00:48 12/12/19 00:48 Labs: Abnormal Lab Results - Last 24 Hours (Table) 12/12/19 12/12/19 12/12/19 Range/Units 00:48 00:48 00:48 WBC 16.5 H (3.8-10.6) k/uL Plt Count 456 H (150-450) k/uL Neutrophils # 14.7 H (1.3-7.7) k/uL Carbon Dioxide 21 L (22-30) mmol/L Glucose 170 H (74-99) mg/dL Plasma Lactic Acid Jose 3.1 H* (0.7-2.0) mmol/L Calcium 10.5 H (8.4-10.2) mg/dL Phosphorus 5.3 H (2.5-4.5) mg/dL Total Protein 8.5 H (6.3-8.2) g/dL Albumin 5.1 H (3.5-5.0) g/dL Urine Appearance (Clear) Urine Protein (Negative) Urine Glucose (UA) (Negative) Urine Ketones (Negative) Urine Blood (Negative) Urine WBC (0-5) /hpf Amorphous Sediment (None) /hpf Hyaline Casts (0-2) /lpf Urine Mucus (None) /hpf 12/12/19 12/12/19 Range/Units 04:50 04:50 WBC (3.8-10.6) k/uL Plt Count (150-450) k/uL Neutrophils # (1.3-7.7) k/uL Carbon Dioxide (22-30) mmol/L Glucose (74-99) mg/dL Plasma Lactic Acid Jose 2.2 H* (0.7-2.0) mmol/L Calcium (8.4-10.2) mg/dL Phosphorus (2.5-4.5) mg/dL Total Protein (6.3-8.2) g/dL Albumin (3.5-5.0) g/dL Urine Appearance Turbid H (Clear) Urine Protein 1+ H (Negative) Urine Glucose (UA) Trace H (Negative) Urine Ketones 1+ H (Negative) Urine Blood Small H (Negative) Urine WBC 31 H (0-5) /hpf Amorphous Sediment Occasional H (None) /hpf Hyaline Casts 95 H (0-2) /lpf Urine Mucus Many H (None) /hpf Microbiology - Last 24 Hours (Table) 12/12/19 04:50 Urine Culture - Preliminary Urine,Catheterized Thrombosis Risk Factor Assmnt - Choose All That Apply Any of the Below Risk Factors Present?: No Other Risk Factors: No Other congenital or acquired thrombophilia - If yes, enter type in comment: No Thrombosis Risk Factor Assessment Level: Very Low Risk Assessment and Plan Assessment: Intractable nausea vomiting and epigastric pain and tenderness, could be related to gastritis or gastroparesis Possible acute urinary tract infection Possible perimenopausal syndrome Substance abuse with marijuana chronic Gastroparesis GERD History of gastritis Hyperlipidemia Herniated disc Migraine History of depression or anxiety, not in active tissue Nicotine dependence Plan: This is a pleasant 39 years old female who presents with signs symptoms of abdominal pain and possible gastroparesis with nausea vomiting. Continue with pain medicine, continue with IV hydration. Continue with symptomatic treatment for nausea vomiting. Consult GI.[employer] consult. Patient consulted with marijuana, she refused and states that this only thing that helps her back. Labs and medication were reviewed.. Continue same treatment. Continue with symptomatic treatment. Resume home medication. Monitor lytes and vitals. DVT and GI prophylaxis. Further recommendations of the clinical course of the patient DVT prophylaxis: Subcutaneous heparin GI Prophylaxis: Pepcid Prognosis is guarded
[2019-12-12] MEDS: SODIUM CHLORIDE 0.9% 1,000 ML IV SCH ×2 (12:06→22:43)
[2019-12-12] MEDS: ONDANSETRON 4 MG/2 ML VIAL IVP PRN (15:35)
[2019-12-12] MEDS: HEPARIN SODIUM,PORCINE 5,000 UNIT/ML 1 ML VIAL SQ SCH (20:25)
[2019-12-12] MEDS: FAMOTIDINE 20 MG/2 ML VIAL IV SCH (20:25)
[2019-12-13] MEDS: FAMOTIDINE 20 MG/2 ML VIAL IV SCH ×2 (07:00→20:07)
[2019-12-13] MEDS: HEPARIN SODIUM,PORCINE 5,000 UNIT/ML 1 ML VIAL SQ SCH ×2 (07:00→20:07)
[2019-12-13] MEDS: SODIUM CHLORIDE 0.9% 1,000 ML IV SCH ×2 (07:00→20:07)
[2019-12-13] MEDS: MORPHINE SULFATE 4 MG/ML SYRINGE IVP PRN ×3 (07:01→21:26)
[2019-12-13] MEDS: ONDANSETRON 4 MG/2 ML VIAL IVP PRN ×3 (07:09→18:10)
[2019-12-13 07:36] LABS: Basophils % (A) 0 %; Eosinophils # (A) 0.2 k/uL (0-0.7); Eosinophils % (A) 2 %; HCT 33.3 % (34.0-46.0); Lymphocytes # (A) 2.4 k/uL (1.0-4.8); Lymphocytes % (A) 33 %; MCH 33.4 pg (25.0-35.0); MCHC 33.8 g/dL (31.0-37.0); MCV 98.8 fL (80.0-100.0); Mean Platelet Volume 7.5; Monocytes # (A) 0.4 k/uL (0-1.0); Monocytes % (A) 5 %; Neutrophils # (A) 4.2 k/uL (1.3-7.7); Neutrophils % (A) 57 %; Platelet Count 312 k/uL (150-450); RBC 3.37 m/uL (3.80-5.40); WBC 7.3 k/uL (3.8-10.6)
[2019-12-13 07:40] LABS: HGB 11.2 gm/dL (11.4-16.0)
[2019-12-13 07:48] LABS: African American GFR (CKD) >90 (>60 ml/min/1.73 sqM); Anion Gap 7 mmol/L; Blood Urea Nitrogen 14 mg/dL (7-17); Calcium 8.5 mg/dL (8.4-10.2); Carbon Dioxide 23 mmol/L (22-30); Chloride 107 mmol/L (98-107); Glucose 83 mg/dL (74-99); Magnesium 1.8 mg/dL (1.6-2.3); Non-African American GFR(CKD) >90 (>60 ml/min/1.73 sqM); Sodium 137 mmol/L (137-145)
--- NOTE | 2019-12-13 07:59 | P.CON ---
Consult Note - . Consult date: 12/13/19 Assessment/Plan:: This is a 39-year-old white female 3 para 3003 last menstrual period 12/05/2019. Patient presented to the emergency room on Thursday with nausea and vomiting. She states the emesis woke her up at 11 PM. Patient states this has been an issue for approximately 8 years. It began after a case of severe food poisoning. It occurs multiple times during the year, and patient questions whether it has a cyclic nature related to her menstrual periods. She uses medical marijuana and Zofran daily. She has had GI workup, please see below. She denies any other pelvic issues, no discharge, no odor, no pain in the pelvis. Past history is significant for gastroparesis followed by a family physician Dr. Cevallos (sp?) in [place]. Patient states she received Botox injections of the mouth and stomach in 2019 and had good results. She was told that she would need this therapy a proximally every 6 months. She had insurance change and has not received additional therapy. She in addition reports poor fusion of the SI joint, and history of herniated disks. Past surgical history appendectomy, tubal ligation. ALLERGIES Bactrim to which reports a body rash and hives. Gynecologic history menarche began at the age of 9, menses occur every 28-30 days and last 5 days in duration. She has no history of gonorrhea or chlamydia. She had normal spontaneous vaginal deliveries 3, delivered by Dr. Prater. Current medications Zofran daily, medical marijuana daily. Family history mother age 62 was diagnosed with breast cancer at age 57. Father at age 54 of total organ failure. She has a 25-year-old half sister in good health, lost and sister at age 45 of a drug overdose, lost another sister age 25 to a motor vehicle accident. She has twin brothers age 47 who are in good health. There is no known family history of cancers of the cervix uterus ovaries or colon. Social history patient is , she states she is disabled and therefore does not work. She has been a tobacco smoker one pack per day for 25 years, and as noted uses marijuana daily. She denies alcohol use. She denies any other drug use. On exam she is 5 foot 7-1/2 inches, 140 pounds, vital signs are stable and she is afebrile. HEENT examination is negative, reasonably good ventilation, no thyromegaly, no cervical lymphadenopathy. Chest is clear to auscultation in all du anteriorly and posteriorly. Cardiac exam reveals regular rate and rhythm with no murmur click or rub. Abdomen is generally tender, no rebound, minimal guarding. No CVA tenderness. Active bowel sounds. Extremities reveal no edema, there are good peripheral pulses. On pelvic exam external genitalia is within normal limits. No unusual discharge or odor. No bleeding. No cervical motion tenderness, uterus is retroverted and patient states is tender to deep palpation. Bilateral adnexa are mobile, smooth, equal bilaterally, nontender. No obvious enlargement of the ovaries or cysts on examination. Labs include negative urine hCG, urinalysis with 1+ protein 1+ ketones and small blood. Electrolyte panel is within normal limits. Hemoglobin 11.2, hematocrit 33.3, WBC 7.3, platelets 456,000. Impression: Nausea and vomiting of 8 year duration. Patient questioning cyclic nature. Consulting physician questioning menopause. Plan: I do not believe that the GI issue is related to gynecologic etiology. We will check FSH to assess early menopause, although with monthly cycles lasting 5 days that is quite unlikely. I have discussed my thoughts with the patient. Thank you for the consultation.
--- NOTE | 2019-12-13 08:55 | P.PN ---
Subjective This is a pleasant 39 years old female with past medical history of GERD, hyperlipidemia, musculoskeletal disorder with herniated disc (on marijuana she smokes twice daily), migraine, gastroparesis (desiccated twice as per patient positive result), gastritis, depression and anxiety, smokes cigarettes and marijuana. Reasons because of abdominal pain and nausea vomiting. Patient states for the last 6-7 years she has manager image nausea for 1-2 hours every day, however she woke up yesterday morning and her nausea was more severe she had hard bowel movement followed by vomiting every 45 minutes and each time she eats so she came to the emergency room for vomiting is associated with abdominal pain, patient has epigastric pain and tenderness especially on vomiting. Patient states that currently she has sinus infection with runny nose, and although she denies urinary symptoms however she has suprapubic tenderness and her UA is abnormal. Also patient states that her symptoms comes either immediately before or after her period. Her last menstrual period ended about 2 days ago before her symptoms started. 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 She has elevated WBC of 16.5 K, BMP is unremarkable, creatinine was elevated to 3.1K back to normal at 0.8. Liver enzymes not elevated. Urinalysis is suspicious for infection. Urine test is negative. Acute abdominal series: Normal chest, acute abdomen. EKG normal sinus rhythm at [address]-T, QTC is 453 On admission patient is started on several medications including Bentyl, Dilaudid, Ativan, Reglan, Zofran, Protonix and she received 2 L and a half of IV fluids. The patient and morphine 4 mg every 4 hours and Ativan 1 mg every 6 hours. 12/13/2019 Patient today feels better with no vomiting since last night. She still nauseated, her abdominal pain is down, she did not have bowel movement but she is passing gases. No suprapubic tenderness or urinary complaints. Labs from this morning look. Blood pressure 103/63 and heart rate 54. Urine culture still pending. Hemoglobin A1c is pending .We will check TSH CONSTITUTIONAL: No fever, no malaise, no fatigue. HEENT: No recent visual problems or hearing problems. Denied any sore throat. CARDIOVASCULAR: No orthopnea, PND, no palpitations, no syncope. PULMONARY: No shortness of breath, no cough, no hemoptysis. GASTROINTESTINAL: No diarrhea, no nausea, no vomiting, no abdominal pain. No rmoactive bowel sounds. NEUROLOGICAL: No headaches, no weakness, no numbness. HEMATOLOGICAL: Denies any bleeding or petechiae. GENITOURINARY: Denies any burning micturition, frequency, or urgency. MUSCULOSKELETAL/RHEUMATOLOGICAL: Denies any joint pain, swelling, or any muscle pain. ENDOCRINE: Denies any polyuria or polydipsia. Active Medications Generic Name Dose Route Start Last Admin Trade Name Freq PRN Reason Stop Dose Admin Famotidine 20 mg 12/12/19 21:00 12/13/19 07:00 Pepcid IV 20 mg Q12HR ALYSSA Administration Heparin Sodium (Porcine) 5,000 unit 12/12/19 21:00 12/13/19 07:00 Heparin SQ 5,000 unit Q12HR ALYSSA Administration Sodium Chloride 1,000 mls @ 100 mls/hr 12/12/19 12:15 12/13/19 07:00 Saline 0.9% IV 100 mls/hr .Q10H ALYSSA Administration Ceftriaxone Sodium 1 gm/ 50 mls @ 100 mls/hr 12/12/19 21:00 12/12/19 20:49 Sodium Chloride IVPB 100 mls/hr Q24H ALYSSA Administration Lorazepam 1 mg 12/12/19 02:17 Ativan IV Q6HR PRN Anxiety Morphine Sulfate 4 mg 12/12/19 02:17 12/13/19 07:01 Morphine Sulfate (Inj) IVP 4 mg Q4HR PRN Administration Pain Ondansetron HCl 4 mg 12/12/19 02:17 12/13/19 07:09 Zofran IVP 4 mg Q6HR PRN Administration Nausea And Vomiting Objective - Vital Signs Vital signs: Vital Signs Temp 98.0 F 12/13/19 07:00 Pulse 54 L 12/13/19 07:00 Resp 17 12/13/19 07:00 BP 103/63 12/13/19 07:00 Pulse Ox 94 L 12/13/19 07:00 Intake & Output 12/12/19 12/13/19 12/13/19 18:59 06:59 18:59 Intake Total 1000 Balance 1000 Intake: Intake, IV Titration 1000 Amount Sodium Chloride 0.9% 1, 1000 000 ml @ 100 mls/hr IV . Q10H [facility] Rx#:[id number] Other: Voiding Method Toilet Toilet # Voids 2 - Exam GENERAL: The patient is alert and oriented x3, not in any acute distress. Well developed, well nourished. HEENT: Pupils are round and equally reacting to light. EOMI. No scleral icterus. No conjunctival pallor. Normocephalic, atraumatic. No pharyngeal erythema. No thyromegaly. CARDIOVASCULAR: S1 and S2 present. No murmurs, rubs, or gallops. PULMONARY: Chest is clear to auscultation, no wheezing or crackles. -ABDOMEN: Soft, mild epigastric tenderness, no suprapubic tenderness, nondistended, normoactive bowel sounds. No palpable organomegaly. MUSCULOSKELETAL: No joint swelling or deformity. EXTREMITIES: No cyanosis, clubbing, or pedal edema. NEUROLOGICAL: Gross neurological examination did not reveal any focal deficits. SKIN: No rashes. no petechiae. - Labs CBC & Chem 7: 12/13/19 07:04 12/13/19 07:04 Labs: Abnormal Lab Results - Last 24 Hours (Table) 12/13/19 Range/Units 07:04 RBC 3.37 L (3.80-5.40) m/uL Hgb 11.2 L D (11.4-16.0) gm/dL Hct 33.3 L (34.0-46.0) % Microbiology - Last 24 Hours (Table) 12/12/19 04:50 Urine Culture - Preliminary Urine,Catheterized Assessment and Plan Assessment: Intractable nausea vomiting and epigastric pain and tenderness, could be related to gastritis or gastroparesis Possible acute urinary tract infection Possible perimenopausal syndrome Substance abuse with marijuana chronic Gastroparesis GERD History of gastritis Hyperlipidemia Herniated disc Migraine History of depression or anxiety, not in active tissue Nicotine dependence Plan: This is a pleasant 39 years old female who presents with signs symptoms of abdominal pain and possible gastroparesis with nausea vomiting. Continue with pain medicine, continue with IV hydration. Continue with symptomatic treatment for nausea vomiting. Consult GI.CALL CENTER OPERATOR consult. Patient consulted with donya malik, she refused and states that this only thing that helps her back. Labs and medication were reviewed.. Continue same treatment. Continue with symptomatic treatment. Resume home medication. Monitor lytes and vitals. DVT and GI prophylaxis. Further recommendations of the clinical course of the patient DVT prophylaxis: Subcutaneous heparin GI Prophylaxis: Pepcid Prognosis is guarded
[2019-12-13 12:55] LABS: Hemoglobin A1C 5.6 % (4.0-6.0)
[2019-12-13 19:13] VITALS: RESP 16
[2019-12-14] MEDS: ONDANSETRON 4 MG/2 ML VIAL IVP PRN ×2 (01:06→08:43)
[2019-12-14] MEDS: MORPHINE SULFATE 4 MG/ML SYRINGE IVP PRN ×3 (02:09→13:15)
[2019-12-14] MEDS: SODIUM CHLORIDE 0.9% 1,000 ML IV SCH (03:33)
[2019-12-14 07:05] LABS: Basophils % (A) 1 %; Eosinophils # (A) 0.2 k/uL (0-0.7); Eosinophils % (A) 3 %; HCT 34.6 % (34.0-46.0); HGB 11.1 gm/dL (11.4-16.0); Lymphocytes # (A) 2.4 k/uL (1.0-4.8); Lymphocytes % (A) 44 %; MCH 31.5 pg (25.0-35.0); MCHC 32.1 g/dL (31.0-37.0); MCV 98.1 fL (80.0-100.0); Mean Platelet Volume 7.3; Monocytes # (A) 0.3 k/uL (0-1.0); Monocytes % (A) 5 %; Neutrophils # (A) 2.3 k/uL (1.3-7.7); Neutrophils % (A) 44 %; Platelet Count 312 k/uL (150-450); RBC 3.53 m/uL (3.80-5.40); RDW 11.9 % (11.5-15.5); WBC 5.3 k/uL (3.8-10.6)
[2019-12-14 07:24] LABS: African American GFR (CKD) >90 (>60 ml/min/1.73 sqM); Anion Gap 7 mmol/L; Blood Urea Nitrogen 6 mg/dL (7-17); Calcium 8.6 mg/dL (8.4-10.2); Carbon Dioxide 25 mmol/L (22-30); Chloride 106 mmol/L (98-107); Glucose 95 mg/dL (74-99); Magnesium 1.7 mg/dL (1.6-2.3); Non-African American GFR(CKD) >90 (>60 ml/min/1.73 sqM); Potassium 3.6 mmol/L (3.5-5.1); Sodium 138 mmol/L (137-145)
[2019-12-14 07:26] VITALS: BP 94/58; PULSE 67; TEMP 98.1
[2019-12-14] MEDS: FAMOTIDINE 20 MG/2 ML VIAL IV SCH (07:52)
[2019-12-14] MEDS: HEPARIN SODIUM,PORCINE 5,000 UNIT/ML 1 ML VIAL SQ SCH (07:53)
[2019-12-14] MEDS ORDERED: PROMETHAZINE 25 MG TAB PO PRN (11:06)
[2019-12-14] MEDS ORDERED: diphenhydrAMINE 50 MG/ML 1 ML VIAL IVP STA (12:53)
[2019-12-14] MEDS ORDERED: LIDOCAINE 5% PATCH TOPICAL SCH (13:00)
[2019-12-14] MEDS ORDERED: PANTOPRAZOLE 40 MG/10 ML VIAL IVP SCH (13:00)
--- NOTE | 2019-12-14 17:55 | CONS ---
CONSULTATION DATE OF DICTATION: 12/14/2019 REQUESTING PHYSICIAN: Dr. Rogers REASON FOR CONSULTATION: Nausea and vomiting and history of gastroparesis. SUMMARY OF HISTORY OF PRESENT ILLNESS: The patient is a 39-year-old pleasant white female who was admitted to the hospital because of severe nausea and vomiting that started about 3 days ago. The patient has history of gastroesophageal reflux disease, hypertension, and hyperlipidemia as well as migraine headaches, who had intermittent episodes of nausea, vomiting for the last 6 years duration. She was extensively investigated at [facility] and according to the patient, she was diagnosed with idiopathic gastroparesis. She develops these symptoms once a month around her menstrual cycles usually last for a day or 2 and symptoms resolve. She has been hospitalized multiple times. She had multiple upper endoscopies at least 7 in the last 8 years at [facility]. The last one was about a year and a half ago. She also had EGD with Botox injection of the pyloric sphincter following which her symptoms have significantly improved for 6 months. Now she started having more symptoms. She moved to this area and hence was admitted to this hospital. She is feeling much better today. She denies any abdominal pain. Tolerating diet well. She was given Zofran and Protonix during this hospitalization. In between the episodes, she has some nausea, occasional heartburn, but no abdominal pain. She lost 30-40 pounds in the last 8 years, but after EGD with Botox injection of the pyloric sphincter about a year and a half ago she gained most of the weight back and currently at 150 pounds. PAST MEDICAL HISTORY: Significant for hypertension, hyperlipidemia, gastroesophageal reflux disease, idiopathic gastroparesis. PAST SURGICAL HISTORY: Appendectomy, tubal ligation, and multiple upper endoscopies. MEDICATIONS: At home include Zofran and Pepcid. ALLERGIES: TO BACTRIM. FAMILY HISTORY: Father and brother have no medical problems. Mother had some kind of cancer. REVIEW OF SYSTEMS: CARDIOPULMONARY: No chest pain, shortness of breath. GENITOURINARY: No dysuria or hematuria. MUSCULOSKELETAL unremarkable. SKIN unremarkable. ENDOCRINE unremarkable. PSYCHIATRIC: Anxiety, depression. NEUROLOGY unremarkable. ENT/vision unremarkable. CONSTITUTIONAL: No recent weight loss. No fever, chills, night sweats. PHYSICAL EXAMINATION: Blood pressure is 111/67, pulse 72, temperature 98. HEENT examination unremarkable. Conjunctivae pink. Sclerae anicteric. Oral cavity no lesions. NECK: No JVD or lymph node enlargement. CHEST: The chest was clear to auscultation. HEART: Regular rate and rhythm. ABDOMEN: Soft, it was nontender, nondistended. Bowel sounds are positive. No organomegaly. EXTREMITIES: No pedal edema. SKIN no rashes. NEUROLOGICAL: She is alert and oriented x3. No focal deficits. LABS: Done at the time of admission to the hospital revealed WBC 7.3, hemoglobin 11.2, platelets normal. Basic metabolic panel is normal. Amylase and lipase are normal. AST, ALT, T-bilirubin, alkaline phosphatase are within normal limits. IMPRESSION: This is a lady who presents to the hospital with intermittent episodes of nausea, vomiting for the last 8 years duration. These symptoms happen almost once a month, mostly around her menstrual cycles. She was investigated extensively at [facility], multiple upper endoscopies and according to the patient was diagnosed with idiopathic gastroparesis. She is on Zofran on an outpatient basis. She is presently on Protonix and Zofran and is feeling much better. She wants to go home today. Had multiple upper endoscopies as mentioned above. Last one, EGD with Botox injection of the pyloric sphincter about a year and one half ago and since then, her symptoms are significantly improved. RECOMMENDATIONS: 1. Continue with Protonix 40 mg daily. 2. Zofran as needed. 3. Small frequent meals. 4. The patient was advised to follow up in the office in 2-3 weeks and we will consider further workup based on the symptoms. Thank you for this consultation. MMODL / IJN: [id number] /
--- NOTE | 2019-12-14 22:49 | P.DS ---
Providers Date of admission: 12/12/19 02:17 Attending physician: Etta Valentine Consults: 12/12/19 12:03 Consult Physician Routine Consulting Provider: Yasmeen Flood Consult Reason/Comments: suprapubic tenderness, possible perimenopausal syndrome Do you want consulting provider notified?: Yes 12/14/19 08:47 Consult Physician Stat Consulting Provider: Lit Awad Consult Reason/Comments: abd pain Do you want consulting provider notified?: Yes Primary care physician: Physician Nonstaff Hospital Course: Diagnoses: Intractable nausea vomiting and epigastric pain and tenderness, could be related to gastritis or gastroparesis. Improved significantly Possible acute urinary tract infection. Urine culture is negative. Possible perimenopausal syndrome . Evaluated by CAR RENTAL AGENT and cleared him for disch arge, they don't think is related Substance abuse with marijuana, for her chronic back pain chronic Gastroparesis GERD History of gastritis Hyperlipidemia Herniated disc, with chronic back pain Migraine History of depression or anxiety, not in active tissue Nicotine dependence Hospital course: This is a pleasant 39 years old female with past medical history of GERD, hyperlipidemia, musculoskeletal disorder with herniated disc (on marijuana she smokes twice daily), migraine, gastroparesis (tested twice as per patient with positive result), gastritis, depression and anxiety, smokes cigarettes and marijuana. Reasons because of abdominal pain and nausea vomiting. 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 Patient was treated with antiemetics, no muscle line, Bentyl and morphine for her back pain. Also she received a short course of Rocephin. Eventually patient vomiting still controlled, patient couldn't tolerate diet, her abdominal pain is significantly improved she still have mild epigastric discomfort. No suprapubic tenderness. No dyspnea or coughing or chest pain. No fever. pt did not want to wait in the hospital and she wants to go home today , she think she can control her symptoms with medicine, pt has been evaluated by GI service and cleared her for discharge Patient has been evaluated by CAR RENTAL AGENT physician and they don't think at this related to her menses, and they cleared her for discharge Problems and management plan were discussed with the patient and he verbalized understanding and acceptance Patient was found stable and can be discharged home however he needs follow-up as an outpatient. Patient was instructed to follow up with PCP within one week and patient agrees, also she is instructed to f/u with GI upon discharge and she agree Gen: patient is a AAOx3, no distress CVS: S1-S2, RRR, no murmur Lungs: B/L CTA, no wheezing Abdomen: soft, no distention, no tenderness, positive bowel sounds Extremity: no leg edema or induration Time spent more than 35 minutes Patient Condition at Discharge: Fair Plan - Discharge Summary Discharge Rx Participant: Yes New Discharge Prescriptions: New diphenhydrAMINE [Benadryl] 25 mg PO TID PRN #10 capsule PRN Reason: Nausea And Vomiting Pantoprazole Sodium [Protonix] 40 mg PO DAILY #30 tablet. Lidocaine 5% Patch [Lidoderm 5% Patch] 1 patch TOPICAL DAILY #7 patch Continue Ondansetron [Zofran ODT] 8 mg PO Q8H PRN PRN Reason: Nausea Discharge Medication List Ondansetron [Zofran ODT] 8 mg PO Q8H PRN 12/12/19 [History] Lidocaine 5% Patch [Lidoderm 5% Patch] 1 patch TOPICAL DAILY #7 patch 12/14/19 [Rx] Pantoprazole Sodium [Protonix] 40 mg PO DAILY #30 tablet. 12/14/19 [Rx] diphenhydrAMINE [Benadryl] 25 mg PO TID PRN #10 capsule 12/14/19 [Rx] Follow up Appointment(s)/Referral(s): Jewell Bui MD [REFERRING] - 1 Week (primary care doctor Office not answ ering Please call to make appointment) Nonstaff,Physician [Primary Care Provider] - 1-2 days Tameka Stevens PAC [REFERRING] - 01/03/20 2:00 pm Patient Instructions/Handouts: Acute Abdominal Pain (DC) Discharge Disposition: HOME SELF-CARE
== END 2019-12-14 15:16 | disposition home or self-care (01) ==
LOC: EC 23:54 → 4SSUR 12-12 02:17
PROVIDERS: ADMIT Hospitalist; ATTEND Hospitalist
DX: R11.2 Nausea with vomiting, unspecified (principal); R10.13 Epigastric pain; K31.84 Gastroparesis; M54.9 Dorsalgia, unspecified; G89.29 Other chronic pain; K21.9 Gastro-esophageal reflux disease without esophagitis; I10 Essential (primary) hypertension; E78.5 Hyperlipidemia, unspecified; G43.909 Migraine, unspecified, not intractable, without status migrainosus; F41.9 Anxiety disorder, unspecified; F32.9 Major depressive disorder, single episode, unspecified; F12.90 Cannabis use, unspecified, uncomplicated; F17.210 Nicotine dependence, cigarettes, uncomplicated; K29.70 Gastritis, unspecified, without bleeding; Z80.3 Family history of malignant neoplasm of breast; Z81.8 Family history of other mental and behavioral disorders; Z79.899 Other long term (current) drug therapy; Z88.2 Allergy status to sulfonamides; Z88.1 Allergy status to other antibiotic agents
CPT/HCPCS: 96376 ×3; 96361 ×3; 96365; 96366; 96372 ×3; 96375 ×2; 99285; 36415; 93005; 80053; 80048 ×2; 84443; 83001; 83605; 83735 ×3; 84100; 84484; 85025 ×3; 81001; 81025; 84703; 87086; 83036; 74022; G0378 ×3; G0480; J2060; J2270 ×3; J1200 ×2; J1644 ×3; J2765; J2405 ×3; J0696 ×2; J1170; C9113 ×2; 80320

== ENCOUNTER 2020-01-04 03:29 | Observation (INO) | payer MEDICARE ==
[2020-01-04] MEDS ORDERED: SODIUM CHLORIDE 0.9% 1,000 ML IV STA (03:48)
[2020-01-04] MEDS ORDERED: HYDROmorphone 1 MG/ML 1 ML SYRINGE IVP STA (03:48)
[2020-01-04] MEDS ORDERED: PANTOPRAZOLE 40 MG/10 ML VIAL IVP STA (03:48)
[2020-01-04] MEDS ORDERED: ONDANSETRON 4 MG/2 ML VIAL IVP STA (03:48)
[2020-01-04] MEDS ORDERED: diphenhydrAMINE 50 MG/ML 1 ML VIAL IVP STA (03:48)
[2020-01-04 04:11] LABS: Basophils # (A) 0.1 k/uL (0-0.2); Basophils % (A) 1 %; Eosinophils # (A) 0.2 k/uL (0-0.7); Eosinophils % (A) 1 %; HCT 45.4 % (34.0-46.0); Lymphocytes # (A) 1.8 k/uL (1.0-4.8); Lymphocytes % (A) 10 %; MCH 31.4 pg (25.0-35.0); MCHC 32.4 g/dL (31.0-37.0); MCV 96.8 fL (80.0-100.0); Mean Platelet Volume 7.6; Monocytes # (A) 0.7 k/uL (0-1.0); Monocytes % (A) 4 %; Neutrophils # (A) 15.8 k/uL (1.3-7.7); Neutrophils % (A) 84 %; Platelet Count 493 k/uL (150-450); RBC 4.69 m/uL (3.80-5.40); RDW 12.2 % (11.5-15.5); WBC 18.8 k/uL (3.8-10.6)
[2020-01-04 04:20] LABS: HGB 14.7 gm/dL (11.4-16.0)
[2020-01-04 04:21] LABS: Albumin 5.2 g/dL (3.5-5.0); Calcium 10.7 mg/dL (8.4-10.2); Total Protein 8.9 g/dL (6.3-8.2)
--- NOTE | 2020-01-04 04:23 | ED ---
Abdominal Pain HPI - General Chief Complaint: Abdominal Pain Stated Complaint: abd pain, vomiting Source: patient Mode of arrival: ambulatory Limitations: no limitations - History of Present Illness MD Complaint: abdominal pain -: hour(s) Location: periumbilical Radiation: none Migration to: no migration Severity: severe Quality: other (Tightness) Consistency: constant Improves With: nothing Worsens With: nothing Associated Symptoms: nausea, vomiting, hematemesis - Related Data Patient : No Home Medications Medication Instructions Recorded Confirmed Ondansetron [Zofran ODT] 8 mg PO Q8H PRN 12/12/19 12/12/19 Previous Rx's Medication Instructions Recorded Lidocaine 5% Patch [Lidoderm 5% 1 patch TOPICAL DAILY #7 patch 12/14/19 Patch] Pantoprazole Sodium [Protonix] 40 mg PO DAILY #30 tablet. 12/14/19 diphenhydrAMINE [Benadryl] 25 mg PO TID PRN #10 capsule 12/14/19 Ondansetron Odt [Zofran ODT] 4 mg PO Q8HR PRN #10 tab 01/04/20 Allergies Allergy/AdvReac Type Severity Reaction Status Date / Time sulfamethoxazole Allergy Rash/Hives Verified 01/04/20 03:37 [From Bactrim] trimethoprim [From Bactrim] Allergy Rash/Hives Verified 01/04/20 03:37 Review of Systems ROS Statement: Those systems with pertinent positive or pertinent negative responses have been documented in the HPI. ROS Other: All systems not noted in ROS Statement are negative. Constitutional: Denies: fever, chills Respiratory: Denies: cough, dyspnea Cardiovascular: Denies: chest pain, palpitations Gastrointestinal: Reports: abdominal pain, nausea, vomiting, hematemesis. Denies: diarrhea, constipation, melena, hematochezia Genitourinary: Denies: dysuria, hematuria Musculoskeletal: Denies: back pain Skin: Denies: rash Neurological: Denies: headache, weakness, numbness Past Medical History Past Medical History: GERD/Reflux, Hyperlipidemia, Musculoskeletal Disorder, Neurologic Disorder Additional Past Medical History / Comment(s): herniated disc, gastritis, gastroparesis, migraines, esophageal tears, History of Any Multi-Drug Resistant Organisms: None Reported Past Surgical History: Appendectomy, Tubal Ligation Additional Past Surgical History / Comment(s): Appendectomy, tubal ligation, E GD. Past Anesthesia/Blood Transfusion Reactions: No Reported Reaction Additional Past Anesthesia/Blood Transfusion Reaction / Comment(s): never had bl ood transfusion. Past Psychological History: Anxiety, Depression Smoking Status: Current every day smoker Past Alcohol Use History: None Reported Past Drug Use History: Marijuana - Past Family History Mother Family Medical History: Cancer Father Family Medical History: No Reported History Brother(s) Family Medical History: Neurologic Disorder Sister(s) Family Medical History: No Reported History Son(s) Family Medical History: No Reported History Daughter(s) Family Medical History: No Reported History General Exam Limitations: no limitations General appearance: alert, in no apparent distress Head exam: Present: atraumatic, normocephalic Eye exam: Present: normal appearance. Absent: scleral icterus, conjunctival injection ENT exam: Present: mucous membranes dry Neck exam: Present: normal inspection Respiratory exam: Present: normal lung sounds bilaterally. Absent: respiratory distress, wheezes, rales, rhonchi, stridor Cardiovascular Exam: Present: regular rate, normal rhythm, normal heart sounds. Absent: systolic murmur, diastolic murmur, rubs, gallop GI/Abdominal exam: Present: soft, tenderness (Moderate epigastric tenderness wit hout rebound or guarding), diminished bowel sounds. Absent: distended, guarding, rebound, rigid, mass, pulsatile mass Extremities exam: Present: normal inspection, normal capillary refill. Absent: pedal edema, calf tenderness Back exam: Present: normal inspection. Absent: CVA tenderness (R), CVA tenderness (L) Neurological exam: Present: alert Skin exam: Present: warm, dry, intact, normal color. Absent: rash Course Vital Signs 01/04/20 01/04/20 03:34 05:56 Temperature 97.8 F Pulse Rate 97 71 Respiratory 24 18 Rate Blood Pressure 141/93 130/77 O2 Sat by Pulse 95 97 Oximetry Medical Decision Making - Lab Data Result diagrams: 01/04/20 03:58 01/04/20 03:58 Lab Results 01/04/20 01/04/20 01/04/20 Range/Units 03:58 03:58 05:23 WBC 18.8 H (3.8-10.6) k/uL RBC 4.69 (3.80-5.40) m/uL Hgb 14.7 D (11.4-16.0) gm/dL Hct 45.4 (34.0-46.0) % MCV 96.8 (80.0-100.0) fL MCH 31.4 (25.0-35.0) pg MCHC 32.4 (31.0-37.0) g/dL RDW 12.2 (11.5-15.5) % Plt Count 493 H (150-450) k/uL Neutrophils % 84 % Lymphocytes % 10 % Monocytes % 4 % Eosinophils % 1 % Basophils % 1 % Neutrophils # 15.8 H (1.3-7.7) k/uL Lymphocytes # 1.8 (1.0-4.8) k/uL Monocytes # 0.7 (0-1.0) k/uL Eosinophils # 0.2 (0-0.7) k/uL Basophils # 0.1 (0-0.2) k/uL Sodium 137 (137-145) mmol/L Potassium 4.0 (3.5-5.1) mmol/L Chloride 101 (98-107) mmol/L Carbon Dioxide 21 L (22-30) mmol/L Anion Gap 15 mmol/L BUN 11 (7-17) mg/dL Creatinine 0.95 (0.52-1.04) mg/dL Est GFR (CKD-EPI)AfAm 87 (>60 ml/min/1.73 sqM) Est GFR (CKD-EPI)NonAf 76 (>60 ml/min/1.73 sqM) Glucose 166 H (74-99) mg/dL Calcium 10.7 H (8.4-10.2) mg/dL Total Bilirubin 1.0 (0.2-1.3) mg/dL AST 24 (14-36) U/L ALT 18 (4-34) U/L Alkaline Phosphatase 86 (38-126) U/L Total Protein 8.9 H (6.3-8.2) g/dL Albumin 5.2 H (3.5-5.0) g/dL Urine Color Urine Appearance (Clear) Urine pH (5.0-8.0) Ur Specific Babcock (1.001-1.035) Urine Protein (Negative) Urine Glucose (UA) (Negative) Urine Ketones (Negative) Urine Blood (Negative) Urine Nitrite (Negative) Urine Bilirubin (Negative) Urine Urobilinogen (<2.0) mg/dL Ur Leukocyte Esterase (Negative) Urine RBC (0-5) /hpf Urine WBC (0-5) /hpf Ur Squamous Epith Cells (0-4) /hpf Urine Bacteria (None) /hpf Hyaline Casts (0-2) /lpf Urine Mucus (None) /hpf Urine HCG, Qual Not Detected (Not Detectd) 01/04/20 Range/Units 05:23 WBC (3.8-10.6) k/uL RBC (3.80-5.40) m/uL Hgb (11.4-16.0) gm/dL Hct (34.0-46.0) % MCV (80.0-100.0) fL MCH (25.0-35.0) pg MCHC (31.0-37.0) g/dL RDW (11.5-15.5) % Plt Count (150-450) k/uL Neutrophils % % Lymphocytes % % Monocytes % % Eosinophils % % Basophils % % Neutrophils # (1.3-7.7) k/uL Lymphocytes # (1.0-4.8) k/uL Monocytes # (0-1.0) k/uL Eosinophils # (0-0.7) k/uL Basophils # (0-0.2) k/uL Sodium (137-145) mmol/L Potassium (3.5-5.1) mmol/L Chloride (98-107) mmol/L Carbon Dioxide (22-30) mmol/L Anion Gap mmol/L BUN (7-17) mg/dL Creatinine (0.52-1.04) mg/dL Est GFR (CKD-EPI)AfAm (>60 ml/min/1.73 sqM) Est GFR (CKD-EPI)NonAf (>60 ml/min/1.73 sqM) Glucose (74-99) mg/dL Calcium (8.4-10.2) mg/dL Total Bilirubin (0.2-1.3) mg/dL AST (14-36) U/L ALT (4-34) U/L Alkaline Phosphatase (38-126) U/L Total Protein (6.3-8.2) g/dL Albumin (3.5-5.0) g/dL Urine Color Yellow Urine Appearance Cloudy H (Clear) Urine pH 5.5 (5.0-8.0) Ur Specific Babcock 1.028 (1.001-1.035) Urine Protein 1+ H (Negative) Urine Glucose (UA) Trace H (Negative) Urine Ketones 2+ H (Negative) Urine Blood Small H (Negative) Urine Nitrite Negative (Negative) Urine Bilirubin Negative (Negative) Urine Urobilinogen 2.0 (<2.0) mg/dL Ur Leukocyte Esterase Negative (Negative) Urine RBC 5 (0-5) /hpf Urine WBC 11 H (0-5) /hpf Ur Squamous Epith Cells 30 H (0-4) /hpf Urine Bacteria Rare H (None) /hpf Hyaline Casts 1179 H (0-2) /lpf Urine Mucus Many H (None) /hpf Urine HCG, Qual (Not Detectd) Disposition Clinical Impression: Gastroparesis Disposition: HOME SELF-CARE Condition: Good Prescriptions: Ondansetron Odt [Zofran ODT] 4 mg PO Q8HR PRN #10 tab PRN Reason: Nausea Is patient prescribed a controlled substance at d/c from ED?: No Referrals: None,Stated [Primary Care Provider] - 1-2 days
[2020-01-04] MEDS ORDERED: PROMETHAZINE INJ 25 MG in SODIUM CHLORIDE 0.9% 50 ML IVPB STA (05:22)
[2020-01-04] MEDS ORDERED: METOCLOPRAMIDE 5 MG/ML 2 ML VIAL IVP STA (05:30)
[2020-01-04] MEDS ORDERED: HYDROmorphone 0.5 MG/0.5 ML SYRINGE IVP STA (05:30)
[2020-01-04 05:47] LABS: Appearance,Urine Cloudy (Clear); Bacteria,Urine Rare /hpf; Bilirubin,Urine Negative (Negative); Blood,Urine Small (Negative); Color,Urine Yellow; Glucose,Urine (UA) Trace (Negative); Hyaline Casts,Urine 1179 /lpf (0-2); Ketones,Urine 2+ (Negative); Leukocyte Esterase,Urine Negative (Negative); Mucus,Urine Many /hpf; Nitrite,Urine Negative (Negative); PH, Urine 5.5 (5.0-8.0); Protein,Urine 1+ (Negative); RBC,Urine 5 /hpf (0-5); Specific Gravity,Urine 1.028 (1.001-1.035); Squamous Epithelial Cell,Urine 30 /hpf (0-4); WBC,Urine 11 /hpf (0-5)
[2020-01-04] MEDS ORDERED: SODIUM CHLORIDE 0.9% 1,000 ML IV ONE (06:51)
[2020-01-04] MEDS ORDERED: NALOXONE 0.4 MG/ML 1 ML VIAL IV PRN (07:00)
[2020-01-04] MEDS ORDERED: ONDANSETRON ODT 4 MG TAB PO PRN (07:02)
[2020-01-04] MEDS: SODIUM CHLORIDE 0.9% 1,000 ML IV SCH ×3 (07:57→22:46)
[2020-01-04] MEDS: PANTOPRAZOLE 40 MG TABLET PO SCH (07:57)
[2020-01-04] MEDS: LIDOCAINE 5% PATCH TOPICAL SCH (09:51)
[2020-01-04] MEDS: ONDANSETRON 4 MG/2 ML VIAL IVP PRN (11:40)
[2020-01-04] MEDS: MORPHINE SULFATE 4 MG/ML SYRINGE IV PRN (14:28)
[2020-01-04] MEDS: diphenhydrAMINE 25 MG CAP PO PRN (18:18)
--- NOTE | 2020-01-04 20:53 | HP ---
HISTORY AND PHYSICAL CHIEF COMPLAINT: Abdominal pain. HISTORY OF PRESENT ILLNESS: This is the first known admission for this G3, P3, A0, white female with a history of gastroparesis. She goes to another physician. She is being worked up and is in the middle of this evaluation, apparently. She has had this problem on and off for 6 years. After she eats, she frequently vomits. She came to emergency room because she threw up blood. REVIEW OF SYSTEMS: She has had no headaches, neurologic problems, chest pain, shortness of breath, heart disease, hypertension, inflammatory bowel disease, melena, hematochezia, fever and chills, jaundice, hepatitis, cirrhosis, renal failure, hematuria, frequency, urgency and dysuria, incontinence, arthralgias, diabetes, etc. Past medical history, family history and personal and social histories are unremarkable. She is on Protonix and Zofran. She is ALLERGIC to SULFA. Surgically she has had tubal ligation and appendectomy. She smokes about 1-1/2 pack cigarettes a day. PHYSICAL EXAMINATION: Blood pressure is 132/75 with a pulse of 63, respirations of 15 and she is afebrile general she appeared to be well developed, well nourished, no acute distress. Skin color is normal. Skin is warm, dry. Lymph nodes are not enlarged. Head, ears, eyes, nose, mouth, and throat were normal. Neck veins not distended. Thyroid is not enlarged. CHEST: Clear. Cardiac exam is normal. The abdomen is flat. She is slightly tender in the upper abdomen. There are no masses or visceromegaly. There is no rebound or referred tenderness. Bowel sounds are normal. Extremities normal. Neurologically she is intact. IMPRESSION: She is admitted to the hospital with diagnoses of: 1. Gastroparesis. 2. Intractable nausea and vomiting. 3. Hematemesis. PLAN: 1. Bed rest. 2. IV fluids. 3. Consider Gastroenterology consult. MMODL / IJN: [id number] /
[2020-01-05] MEDS: ONDANSETRON 4 MG/2 ML VIAL IVP PRN ×3 (01:28→21:38)
[2020-01-05] MEDS: MORPHINE SULFATE 4 MG/ML SYRINGE IV PRN ×4 (01:29→21:44)
[2020-01-05] MEDS: LIDOCAINE 5% PATCH TOPICAL SCH (07:42)
[2020-01-05] MEDS: SODIUM CHLORIDE 0.9% 1,000 ML IV SCH ×2 (07:42→14:54)
[2020-01-05] MEDS: PANTOPRAZOLE 40 MG TABLET PO SCH (07:43)
[2020-01-05] MEDS: diphenhydrAMINE 25 MG CAP PO PRN (13:15)
[2020-01-05 13:25] LABS: Basophils % (A) 0 %; Eosinophils # (A) 0.2 k/uL (0-0.7); Eosinophils % (A) 3 %; Lymphocytes # (A) 1.7 k/uL (1.0-4.8); Lymphocytes % (A) 30 %; MCH 33.2 pg (25.0-35.0); MCHC 33.6 g/dL (31.0-37.0); MCV 98.6 fL (80.0-100.0); Mean Platelet Volume 7.6; Monocytes # (A) 0.3 k/uL (0-1.0); Monocytes % (A) 5 %; Neutrophils # (A) 3.4 k/uL (1.3-7.7); Neutrophils % (A) 59 %; Platelet Count 313 k/uL (150-450); RBC 3.34 m/uL (3.80-5.40); RDW 12.2 % (11.5-15.5); WBC 5.7 k/uL (3.8-10.6)
[2020-01-05 13:31] LABS: ALT 13 U/L (4-34); AST 18 U/L (14-36); African American GFR (CKD) >90 (>60 ml/min/1.73 sqM); Albumin 3.4 g/dL (3.5-5.0); Alkaline Phosphatase 49 U/L (38-126); Anion Gap 7 mmol/L; Blood Urea Nitrogen 8 mg/dL (7-17); Calcium 8.7 mg/dL (8.4-10.2); Carbon Dioxide 22 mmol/L (22-30); Chloride 109 mmol/L (98-107); Glucose 92 mg/dL (74-99); Non-African American GFR(CKD) >90 (>60 ml/min/1.73 sqM); Potassium 3.3 mmol/L (3.5-5.1); Sodium 138 mmol/L (137-145); Total Bilirubin 0.5 mg/dL (0.2-1.3); Total Protein 5.9 g/dL (6.3-8.2)
[2020-01-05 13:41] LABS: HGB 11.1 gm/dL (11.4-16.0)
--- NOTE | 2020-01-05 20:16 | PN ---
PROGRESS NOTE CHIEF COMPLAINT: Gastroparesis. HISTORY OF PRESENT ILLNESS: This lady is still having quite a bit of abdominal discomfort. She has had no fever or chills. She has not been vomiting. PHYSICAL EXAMINATION: Abdomen is flat, but she is tender at epigastrium. Chest is clear. Cardiac exam is normal. IMPRESSION: Intractable abdominal pain and vomiting due to gastroparesis. PLAN: Gastroenterology consult. MMODL / IJN: [id number] /
[2020-01-05 20:21] VITALS: PULSE 65; RESP 20
[2020-01-05 20:52] LABS: Hemoglobin A1C 5.3 % (4.0-6.0)
[2020-01-06] MEDS: SODIUM CHLORIDE 0.9% 1,000 ML IV SCH ×2 (00:12→08:13)
[2020-01-06 04:56] VITALS: BP 93/53; TEMP 97.9
[2020-01-06] MEDS: LIDOCAINE 5% PATCH TOPICAL SCH (08:12)
[2020-01-06] MEDS: diphenhydrAMINE 25 MG CAP PO PRN (08:12)
[2020-01-06] MEDS: PANTOPRAZOLE 40 MG TABLET PO SCH (08:12)
[2020-01-06] MEDS: ONDANSETRON 4 MG/2 ML VIAL IVP PRN (10:36)
--- NOTE | 2020-01-06 23:05 | DS ---
DISCHARGE SUMMARY CHIEF COMPLAINT: Abdominal pain and intractable vomiting. HISTORY OF PRESENT ILLNESS AND PHYSICAL EXAM: The details of this lady's history and physical can be found in the initial workup. LABORATORY STUDIES: While she was in the hospital, she had laboratory studies, details of which can be found in the laboratory section of her chart. COURSE IN HOSPITAL: After admission, she was placed on bedrest and started on intravenous fluids and antiemetics and analgesics. She was to be seen by Gastroenterology, but they never got around to doing her assessment. She was doing well and pain was improving, she was not vomiting and she wanted to go home on the . She will go home on her usual activity, diet and medication and she has followup appointments with Gastroenterology and we will ask her to come to the office and follow up with us. FINAL DIAGNOSES: 1. Intractable nausea and vomiting. 2. Dehydration. 3. Gastroparesis. OPERATIONS: None. CONSULTATIONS: Gastroenterology. She is improved. MMSALLIE / EUGENE: [id number] /
== END 2020-01-06 13:35 | disposition home or self-care (01) ==
LOC: EC 03:29 → 5NMEDONC 07:00 → 6NMEDSUR 14:16 → OBSVTOIN 01-06 08:20 → INTOOBSV 01-06 08:20 → UNDODISIN 01-06 13:35
PROVIDERS: ADMIT Family Medicine; ATTEND Family Medicine
DX: K31.84 Gastroparesis (principal); K92.0 Hematemesis; E86.0 Dehydration; K21.9 Gastro-esophageal reflux disease without esophagitis; E78.5 Hyperlipidemia, unspecified; K29.70 Gastritis, unspecified, without bleeding; G43.909 Migraine, unspecified, not intractable, without status migrainosus; F17.210 Nicotine dependence, cigarettes, uncomplicated; F32.9 Major depressive disorder, single episode, unspecified; F41.9 Anxiety disorder, unspecified; Z90.49 Acquired absence of other specified parts of digestive tract; Z88.2 Allergy status to sulfonamides; Z98.51 Tubal ligation status
CPT/HCPCS: 96376 ×3; 96361 ×4; 96374; 96375; 99284; 36415; 80053 ×2; 83690; 85025 ×2; 85027; 81001; 81025; 87086; 83036; G0378 ×4; J2270 ×2; J1200; J2765; J2405 ×3; J1170 ×2; C9113

== ENCOUNTER → 2020-01-11 | Outpatient (CLI) | payer MEDICARE ==
--- NOTE | 2020-01-11 13:30 | NM ---
EXAMINATION TYPE: NM gastric emptying static DATE OF EXAM: 01/11/2020 COMPARISON: CT 10/14/2019 HISTORY: Nausea and vomiting Following administration of 1.25 mCi Tc 99m Sulfur Colloid with 4 oz liquid eggs and water, projectio n images of the abdomen were obtained 10 minutes post ingestion. Patient Emptying Values 1 Hour 12 % 2 Hours 29 % 3 Hours 44 % 4 Hours 72 % Gastroesophageal reflux: None IMPRESSION: Gastric emptying: Slow gastric emptying Gastroesophageal reflux: None
== END | disposition home or self-care (01) ==
LOC: RADNMMAIN 06:44
PROVIDERS: ATTEND Physician Assistant
DX: R11.2 Nausea with vomiting, unspecified (principal)
CPT/HCPCS: 78264; A9541

== ENCOUNTER → 2020-01-31 | Outpatient (CLI) | payer MEDICARE ==
--- NOTE | 2020-01-31 15:48 | CT ---
EXAMINATION TYPE: CT chest w con DATE OF EXAM: 01/31/2020 COMPARISON: NONE HISTORY: Abnormal lung du. CT DLP: 530.28 mGycm. Automated Exposure Control for Dose Reduction was Utilized. TECHNIQUE: CT scan of the thorax is performed following with IV Contrast, patient injected with 100 mL of Isovue 300. FINDINGS: LUNGS: There is minimal biapical pleural parenchymal scarring and mild centrilobular as well as rogers eptal emphysematous change. There is a spiculated groundglass ill-defined opacity in the superior seg ment of the left lower lobe that appears linear on coronal image 54 series 5 and is seen on axial ser ies 4 image 28 and 27 only. This elongates along the segmental bronchi. Minimal bibasilar subsegmental dependent atelectasis. No additional focal consolidation, pulmonary ma ss or pleural effusion. Main tracheobronchial tree is patent. There is no pleural effusion or pneumot horax seen. The tracheobronchial tree is patent. MEDIASTINUM: There are no greater than 1 cm hilar or mediastinal lymph nodes. No pericardial effusi on is seen. OTHER: Limited images of the upper abdomen are grossly unremarkable other than hepatic steatosis (rider iting evaluation for hepatic masses). IMPRESSION: 1. Linear groundglass opacity surrounding a subsegmental bronchus to the left lower lobe superior seg ment. Given its linear morphology this is favored to be inside outside sales representative of scarring, infectious etiolo gy, or inflammatory etiology. Consideration could be given to either short-term follow-up chest CT in 3 months to ensure resolution or bronchoscopy. 2. Hepatic steatosis.
== END | disposition home or self-care (01) ==
LOC: RADCTMAIN 14:35
PROVIDERS: ATTEND Internal Medicine Critical Care Medicine
DX: R91.8 Other nonspecific abnormal finding of lung field (principal); K76.0 Fatty (change of) liver, not elsewhere classified
CPT/HCPCS: 71260; Q9967

== ENCOUNTER 2020-02-01 | Inpatient (IN) | payer MEDICARE | END 2020-02-02 15:45 | disposition home or self-care (01) | DRG 394 | PROVIDERS: ADMIT Hospitalist | CPT/HCPCS: 36415; 74019; 80053; 85025; 96361; 96374; 96375; 99284 ==

== ENCOUNTER 2020-03-10 06:02 | Emergency (ER) | payer MEDICARE ==
[2020-03-10] MEDS ORDERED: ONDANSETRON 4 MG/2 ML VIAL IVP STA (06:17)
[2020-03-10] MEDS ORDERED: SODIUM CHLORIDE 0.9% 1,000 ML IV STA (06:17)
[2020-03-10] MEDS ORDERED: SODIUM CHLORIDE 0.9% 2,000 ML IV STA (06:17)
[2020-03-10] MEDS ORDERED: MORPHINE SULFATE 4 MG/ML SYRINGE IV STA (06:17)
--- NOTE | 2020-03-10 06:24 | ED ---
General Adult HPI - General Chief complaint: Nausea/Vomiting/Diarrhea Stated complaint: vomiting Time Seen by Provider: 03/10/20 06:10 Source: patient, RN notes reviewed, old records reviewed Mode of arrival: ambulatory Limitations: no limitations - History of Present Illness Initial comments: 39 year female presents emergency department today with chief complaint of nausea and vomiting and that she's having flareups of gastroparesis. Patient reports she has episodes approximately once a month. Patient states that she has had noticed some minor blood-tinged into her vomit. Patient states that she's had no other significant symptoms. She reports she did have a bowel movement today. - Related Data Previous Rx's Medication Instructions Recorded Pantoprazole [Protonix] 40 mg PO AC-BRKFST #20 tablet. 01/06/20 Metoclopramide HCl [Reglan] 5 mg PO AC-TID PRN #60 tablet 02/02/20 Metoclopramide HCl [Reglan] 5 mg PO TID #12 tablet 03/10/20 Pantoprazole [Protonix] 40 mg PO DAILY #14 tablet. 03/10/20 Allergies Allergy/AdvReac Type Severity Reaction Status Date / Time sulfamethoxazole Allergy Rash/Hives Verified 02/02/20 10:11 [From Bactrim] trimethoprim [From Bactrim] Allergy Rash/Hives Verified 02/02/20 10:11 Review of Systems ROS Statement: Those systems with pertinent positive or pertinent negative responses have been documented in the HPI. ROS Other: All systems not noted in ROS Statement are negative. Past Medical History Past Medical History: GERD/Reflux, Hyperlipidemia, Renal Disease Additional Past Medical History / Comment(s): Gastroparesis, gastritis, esophageal tears, chronic low back pain, herniated lower discs, bilateral wrist tendonitis with R side worse, R shoulder pain past couple months, numbness to bilateral hand fingers when first wakes, migraines, instructed to sleep with HOB up 6 inches d/t heart rate dropping with sleep, vertigo, polynephritis, UTI. History of Any Multi-Drug Resistant Organisms: None Reported Past Surgical History: Appendectomy, Tubal Ligation Additional Past Surgical History / Comment(s): Botox injection "mouth" of stomach, EGDs, colonoscopy, vaginal cyst drained. Past Anesthesia/Blood Transfusion Reactions: No Reported Reaction Additional Past Anesthesia/Blood Transfusion Reaction / Comment(s): never had blood transfusion. Past Psychological History: Anxiety, Depression Smoking Status: Current every day smoker Past Alcohol Use History: None Reported Past Drug Use History: Marijuana - Past Family History Mother Family Medical History: Cancer Additional Family Medical History / Comment(s): Mother is living. She has had breast cancer and 2 back surgeries. Father Family Medical History: No Reported History Additional Family Medical History / Comment(s): Father had ETOH abuse and was manic depressive. He after a fall where he fractured his back then "drank" himself to . Brother(s) Family Medical History: Neurologic Disorder Sister(s) Family Medical History: No Reported History Son(s) Family Medical History: No Reported History Daughter(s) Family Medical History: No Reported History General Exam - General Exam Comments Initial Comments: 39 year old female, vomiting. Limitations: no limitations General appearance: alert, in no apparent distress Head exam: Present: atraumatic, normocephalic, normal inspection Eye exam: Present: normal appearance, PERRL, EOMI. Absent: scleral icterus, conjunctival injection, periorbital swelling ENT exam: Present: normal exam, mucous membranes moist Neck exam: Present: normal inspection Respiratory exam: Present: normal lung sounds bilaterally. Absent: respiratory distress, wheezes, rales, rhonchi, stridor Cardiovascular Exam: Present: regular rate, normal rhythm, normal heart sounds. Absent: systolic murmur, diastolic murmur, rubs, gallop, clicks GI/Abdominal exam: Present: soft, tenderness (epigastric ) Extremities exam: Present: normal inspection, full ROM, normal capillary refill. Absent: tenderness, pedal edema, joint swelling, calf tenderness Back exam: Present: normal inspection, full ROM Neurological exam: Present: alert, oriented X3, CN II-XII intact Psychiatric exam: Present: normal affect, normal mood Skin exam: Present: warm, dry, intact, normal color. Absent: rash Course Vital Signs 03/10/20 03/10/20 03/10/20 06:03 06:45 06:50 Temperature 97.5 F L Pulse Rate 97 Respiratory 18 Rate Blood Pressure 156/83 136/81 126/87 O2 Sat by Pulse 98 Oximetry 03/10/20 03/10/20 07:01 07:17 Temperature 99.1 F Pulse Rate 63 75 Respiratory 19 18 Rate Blood Pressure 116/71 O2 Sat by Pulse 98 95 Oximetry - Reevaluation(s) Reevaluation #1: 03/10/20 08:09 is reevaluated this time. Still receiving first liter of fluid. Discussed advised the Patient formed some evidence of dehydration with elevated kidney function. Patient reports that she would prefer to be discharged home after her nausea was better. Discussed the case shows she had a full 2 L of fluid here. Patient will be receiving Reglan and Benadryl. Medical Decision Making - Medical Decision Making 39-year-old female presents emergency department today for nausea and vomiting. She is history of gastroparesis and benefits similar to her previous episodes of gastroparesis. She did have a bowel movement this morning. She comes in approximately once a month for this. Seems to be more consistent with cyclic vomiting syndrome. She does have positive drug screen for marijuana. Patient states that she's had some nausea and vomiting worsening since 11 AM yesterday. On exam she appears dehydrated and has minmal epigastric tenderness. Patient was given 2 L of IV fluid and labwork obtained. Blood work does show evidence of dehydration with elevated BUN and creatinine today. Patient has had no further vomiting episodes and emergency department. She still complains of some nausea. She is given Reglan and Benadryl and has improvement as well as Protonix. Patient was offered admission for nausea vomiting dehydration but discussed her to go home after fluids. Discusses is appropriate treatment plan she's had no active vomiting and appears in no distress. - Lab Data Result diagrams: 03/10/20 06:36 03/10/20 07:28 Lab Results 03/10/20 03/10/20 03/10/20 Range/Units 06:00 06:18 06:36 WBC 12.6 H (3.8-10.6) k/uL RBC 4.54 (3.80-5.40) m/uL Hgb 14.7 (11.4-16.0) gm/dL Hct 43.4 (34.0-46.0) % MCV 95.5 (80.0-100.0) fL MCH 32.4 (25.0-35.0) pg MCHC 33.9 (31.0-37.0) g/dL RDW 12.3 (11.5-15.5) % Plt Count 462 H (150-450) k/uL Neutrophils % 89 % Lymphocytes % 6 % Monocytes % 4 % Eosinophils % 1 % Basophils % 0 % Neutrophils # 11.2 H (1.3-7.7) k/uL Lymphocytes # 0.7 L (1.0-4.8) k/uL Monocytes # 0.5 (0-1.0) k/uL Eosinophils # 0.2 (0-0.7) k/uL Basophils # 0.0 (0-0.2) k/uL Sodium (137-145) mmol/L Potassium (3.5-5.1) mmol/L Chloride (98-107) mmol/L Carbon Dioxide (22-30) mmol/L Anion Gap mmol/L BUN (7-17) mg/dL Creatinine (0.52-1.04) mg/dL Est GFR (CKD-EPI)AfAm (>60 ml/min/1.73 sqM) Est GFR (CKD-EPI)NonAf (>60 ml/min/1.73 sqM) Glucose (74-99) mg/dL Calcium (8.4-10.2) mg/dL Total Bilirubin (0.2-1.3) mg/dL AST (14-36) U/L ALT (4-34) U/L Alkaline Phosphatase (38-126) U/L Total Protein (6.3-8.2) g/dL Albumin (3.5-5.0) g/dL Amylase (30-110) U/L Lipase (23-300) U/L Urine Color Yellow Urine Appearance Cloudy H (Clear) Urine pH 5.5 (5.0-8.0) Ur Specific Chandler 1.029 (1.001-1.035) Urine Protein 1+ H (Negative) Urine Glucose (UA) Trace H (Negative) Urine Ketones 1+ H (Negative) Urine Blood Moderate H (Negative) Urine Nitrite Negative (Negative) Urine Bilirubin Negative (Negative) Urine Urobilinogen 2.0 (<2.0) mg/dL Ur Leukocyte Esterase Negative (Negative) Urine RBC 2 (0-5) /hpf Urine WBC 5 (0-5) /hpf Ur Squamous Epith Cells 2 (0-4) /hpf Urine Bacteria Rare H (None) /hpf Hyaline Casts 871 H (0-2) /lpf Urine Mucus Few H (None) /hpf Urine Opiates Screen Not Detected (NotDetected) Ur Oxycodone Screen Not Detected (NotDetected) Urine Methadone Screen Not Detected (NotDetected) Ur Propoxyphene Screen Not Detected (NotDetected) Ur Barbiturates Screen Not Detected (NotDetected) U Tricyclic Antidepress Not Detected (NotDetected) Ur Phencyclidine Scrn Not Detected (NotDetected) Ur Amphetamines Screen Not Detected (NotDetected) U Methamphetamines Scrn Not Detected (NotDetected) U Benzodiazepines Scrn Not Detected (NotDetected) Urine Cocaine Screen Not Detected (NotDetected) U Marijuana (THC) Screen Detected H (NotDetected) 03/10/20 Range/Units 07:28 WBC (3.8-10.6) k/uL RBC (3.80-5.40) m/uL Hgb (11.4-16.0) gm/dL Hct (34.0-46.0) % MCV (80.0-100.0) fL MCH (25.0-35.0) pg MCHC (31.0-37.0) g/dL RDW (11.5-15.5) % Plt Count (150-450) k/uL Neutrophils % % Lymphocytes % % Monocytes % % Eosinophils % % Basophils % % Neutrophils # (1.3-7.7) k/uL Lymphocytes # (1.0-4.8) k/uL Monocytes # (0-1.0) k/uL Eosinophils # (0-0.7) k/uL Basophils # (0-0.2) k/uL Sodium 143 (137-145) mmol/L Potassium 3.5 (3.5-5.1) mmol/L Chloride 105 (98-107) mmol/L Carbon Dioxide 23 (22-30) mmol/L Anion Gap 15 mmol/L BUN 23 H (7-17) mg/dL Creatinine 1.23 H (0.52-1.04) mg/dL Est GFR (CKD-EPI)AfAm 64 (>60 ml/min/1.73 sqM) Est GFR (CKD-EPI)NonAf 55 (>60 ml/min/1.73 sqM) Glucose 131 H (74-99) mg/dL Calcium 10.2 (8.4-10.2) mg/dL Total Bilirubin 0.5 (0.2-1.3) mg/dL AST 20 (14-36) U/L ALT 15 (4-34) U/L Alkaline Phosphatase 83 (38-126) U/L Total Protein 8.6 H (6.3-8.2) g/dL Albumin 5.1 H (3.5-5.0) g/dL Amylase 52 (30-110) U/L Lipase 15 L (23-300) U/L Urine Color Urine Appearance (Clear) Urine pH (5.0-8.0) Ur Specific Chandler (1.001-1.035) Urine Protein (Negative) Urine Glucose (UA) (Negative) Urine Ketones (Negative) Urine Blood (Negative) Urine Nitrite (Negative) Urine Bilirubin (Negative) Urine Urobilinogen (<2.0) mg/dL Ur Leukocyte Esterase (Negative) Urine RBC (0-5) /hpf Urine WBC (0-5) /hpf Ur Squamous Epith Cells (0-4) /hpf Urine Bacteria (None) /hpf Hyaline Casts (0-2) /lpf Urine Mucus (None) /hpf Urine Opiates Screen (NotDetected) Ur Oxycodone Screen (NotDetected) Urine Methadone Screen (NotDetected) Ur Propoxyphene Screen (NotDetected) Ur Barbiturates Screen (NotDetected) U Tricyclic Antidepress (NotDetected) Ur Phencyclidine Scrn (NotDetected) Ur Amphetamines Screen (NotDetected) U Methamphetamines Scrn (NotDetected) U Benzodiazepines Scrn (NotDetected) Urine Cocaine Screen (NotDetected) U Marijuana (THC) Screen (NotDetected) - Radiology Data Radiology results: report reviewed Disposition Clinical Impression: Dehydration, Nausea & vomiting Disposition: HOME SELF-CARE Condition: Good Instructions (If sedation given, give patient instructions): Acute Nausea and Vomiting (ED) Additional Instructions: Patient advised to use the medication as prescribed. Follow-up with your primary care physician and GI specialist. Return to the ED if any alarming signs or symptoms occur. Prescriptions: Pantoprazole [Protonix] 40 mg PO DAILY #14 tablet. Metoclopramide HCl [Reglan] 5 mg PO TID #12 tablet Is patient prescribed a controlled substance at d/c from ED?: No Referrals: Jewell Bui MD [Primary Care Provider] - 1-2 days Time of Disposition: 08:42
[2020-03-10 06:44] LABS: Basophils % (A) 0 %; Eosinophils # (A) 0.2 k/uL (0-0.7); Eosinophils % (A) 1 %; HCT 43.4 % (34.0-46.0); HGB 14.7 gm/dL (11.4-16.0); Lymphocytes # (A) 0.7 k/uL (1.0-4.8); Lymphocytes % (A) 6 %; MCH 32.4 pg (25.0-35.0); MCHC 33.9 g/dL (31.0-37.0); MCV 95.5 fL (80.0-100.0); Mean Platelet Volume 8.3; Monocytes # (A) 0.5 k/uL (0-1.0); Monocytes % (A) 4 %; Neutrophils # (A) 11.2 k/uL (1.3-7.7); Neutrophils % (A) 89 %; Platelet Count 462 k/uL (150-450); RBC 4.54 m/uL (3.80-5.40); RDW 12.3 % (11.5-15.5); WBC 12.6 k/uL (3.8-10.6)
[2020-03-10 07:02] VITALS: TEMP 99.1
[2020-03-10 07:27] LABS: Amphetamine Screen,Urine Not Detected (NotDetected); Barbiturate Screen,Urine Not Detected (NotDetected); Benzodiazepines Screen,Urine Not Detected (NotDetected); Cocaine Screen,Urine Not Detected (NotDetected); Methadone Screen, Urine Not Detected (NotDetected); Opiate Screen,Urine Not Detected (NotDetected); Oxycodone Screen, Urine Not Detected (NotDetected); Phencyclidine Screen,Urine Not Detected (NotDetected); Tricyclic Antidepressant,Urine Not Detected (NotDetected); Urn Cannabinoid Scrn Detected (NotDetected)
[2020-03-10 07:58] LABS: Albumin 5.1 g/dL (3.5-5.0); Calcium 10.2 mg/dL (8.4-10.2); Potassium 3.5 mmol/L (3.5-5.1); Total Bilirubin 0.5 mg/dL (0.2-1.3); Total Protein 8.6 g/dL (6.3-8.2)
[2020-03-10] MEDS ORDERED: METOCLOPRAMIDE 5 MG/ML 2 ML VIAL IVP STA (08:07)
[2020-03-10] MEDS ORDERED: diphenhydrAMINE 50 MG/ML 1 ML VIAL IVP STA (08:07)
[2020-03-10] MEDS ORDERED: PANTOPRAZOLE 40 MG/10 ML VIAL IVP STA (08:07)
[2020-03-10] MEDS ORDERED: MORPHINE SULFATE 4 MG/ML SYRINGE IVP STA (08:08)
[2020-03-10 08:36] LABS: Appearance,Urine Cloudy (Clear); Bacteria,Urine Rare /hpf; Bilirubin,Urine Negative (Negative); Blood,Urine Moderate (Negative); Color,Urine Yellow; Glucose,Urine (UA) Trace (Negative); Hyaline Casts,Urine 871 /lpf (0-2); Ketones,Urine 1+ (Negative); Leukocyte Esterase,Urine Negative (Negative); Mucus,Urine Few /hpf; Nitrite,Urine Negative (Negative); PH, Urine 5.5 (5.0-8.0); Protein,Urine 1+ (Negative); RBC,Urine 2 /hpf (0-5); Specific Gravity,Urine 1.029 (1.001-1.035); Squamous Epithelial Cell,Urine 2 /hpf (0-4); WBC,Urine 5 /hpf (0-5)
[2020-03-10 09:51] VITALS: BP 103/66; PULSE 77; RESP 20
== END 2020-03-10 10:15 | disposition home or self-care (01) ==
LOC: EC 06:02
DX: E86.0 Dehydration (principal); R11.2 Nausea with vomiting, unspecified; F17.200 Nicotine dependence, unspecified, uncomplicated; Z88.1 Allergy status to other antibiotic agents; Z88.2 Allergy status to sulfonamides
CPT/HCPCS: 99284; 96374; 96375 ×4; 96376; 96361 ×4; 36415; 80053; 82150; 83690; 85025; 81001; 80306; J2270; J1200; J2765; J2405; C9113

== ENCOUNTER 2020-04-08 19:47 | Emergency (ER) | payer MEDICARE ==
[2020-04-08] MEDS ORDERED: HYDROmorphone 1 MG/ML 1 ML SYRINGE IVP STA (20:08)
[2020-04-08] MEDS ORDERED: SODIUM CHLORIDE 0.9% 1,000 ML IV STA (20:08)
[2020-04-08] MEDS ORDERED: SODIUM CHLORIDE 0.9% 500 ML 500 ML IV STA (20:08)
[2020-04-08] MEDS ORDERED: ONDANSETRON 4 MG/2 ML VIAL IVP STA (20:08)
[2020-04-08] MEDS ORDERED: diphenhydrAMINE 50 MG/ML 1 ML VIAL IVP STA (20:09)
[2020-04-08 20:15] LABS: Amorphous Sediment,Urine Rare /hpf; Appearance,Urine Cloudy (Clear); Bilirubin,Urine Negative (Negative); Blood,Urine Small (Negative); Color,Urine Yellow; Glucose,Urine (UA) Negative (Negative); Ketones,Urine 1+ (Negative); Leukocyte Esterase,Urine Negative (Negative); Mucus,Urine Many /hpf; Nitrite,Urine Negative (Negative); PH, Urine 6.5 (5.0-8.0); Protein,Urine 1+ (Negative); RBC,Urine 2 /hpf (0-5); Specific Gravity,Urine 1.026 (1.001-1.035); Squamous Epithelial Cell,Urine 6 /hpf (0-4); WBC,Urine 2 /hpf (0-5)
--- NOTE | 2020-04-08 20:28 | ED ---
General Adult HPI - General Chief complaint: Abdominal Pain Stated complaint: Stomach pain, vomiting Time Seen by Provider: 04/08/20 19:54 Source: patient Mode of arrival: ambulatory Limitations: no limitations - History of Present Illness Initial comments: 40-year-old female patient with past medical history significant for gastroparesis presents to the emergency department today for evaluation of vomiting and abdominal pain. Patient states that symptoms started yesterday with nausea. States she started vomiting this morning and hasn't been able to stop. States she did try her Zofran but it isn't working. States she is having generalized abdominal discomfort. States she has alternating constipation and diarrhea which is usual for her. Denies any fever or chills. Denies any pain radiation to her back. She has had appendectomy in the past. Patient denies any recent rash, fever, chills, cough, shortness of breath, chest pain, numbness, tingling, dizziness, weakness, hematuria, dysuria, urinary urgency, urinary frequency, headache, visual changes, or any other complaints. - Related Data Previous Rx's Medication Instructions Recorded Pantoprazole [Protonix] 40 mg PO AC-BRKFST #20 tablet. 01/06/20 Metoclopramide HCl [Reglan] 5 mg PO AC-TID PRN #60 tablet 02/02/20 Metoclopramide HCl [Reglan] 5 mg PO TID #12 tablet 03/10/20 Pantoprazole [Protonix] 40 mg PO DAILY #14 tablet. 03/10/20 Allergies Allergy/AdvReac Type Severity Reaction Status Date / Time sulfamethoxazole Allergy Rash/Hives Verified 04/08/20 19:53 [From Bactrim] trimethoprim [From Bactrim] Allergy Rash/Hives Verified 04/08/20 19:53 Review of Systems ROS Statement: Those systems with pertinent positive or pertinent negative responses have been documented in the HPI. ROS Other: All systems not noted in ROS Statement are negative. Past Medical History Past Medical History: GERD/Reflux, Hyperlipidemia, Renal Disease Additional Past Medical History / Comment(s): Gastroparesis, gastritis, esophageal tears, chronic low back pain, herniated lower discs, bilateral wrist tendonitis with R side worse, R shoulder pain past couple months, numbness to bilateral hand fingers when first wakes, migraines, instructed to sleep with HOB up 6 inches d/t heart rate dropping with sleep, vertigo, polynephritis, UTI. History of Any Multi-Drug Resistant Organisms: None Reported Past Surgical History: Appendectomy, Tubal Ligation Additional Past Surgical History / Comment(s): Botox injection "mouth" of stomach, EGDs, colonoscopy, vaginal cyst drained. Past Anesthesia/Blood Transfusion Reactions: No Reported Reaction Additional Past Anesthesia/Blood Transfusion Reaction / Comment(s): never had blood transfusion. Past Psychological History: Anxiety, Depression Smoking Status: Current every day smoker Past Alcohol Use History: None Reported Past Drug Use History: Marijuana - Past Family History Mother Family Medical History: Cancer Additional Family Medical History / Comment(s): Mother is living. She has had breast cancer and 2 back surgeries. Father Family Medical History: No Reported History Additional Family Medical History / Comment(s): Father had ETOH abuse and was manic depressive. He after a fall where he fractured his back then "drank" himself to . Brother(s) Family Medical History: Neurologic Disorder Sister(s) Family Medical History: No Reported History Son(s) Family Medical History: No Reported History Daughter(s) Family Medical History: No Reported History General Exam Limitations: no limitations General appearance: alert, in no apparent distress, other (This is a well- developed, well-nourished adult female patient in no acute distress. Vital s igns upon presentation are temperature 97.6F, pulse 105, respirations 18, blood pressure 125/81, pulse ox 96% on room air.) Eye exam: Present: normal appearance, PERRL, EOMI. Absent: scleral icterus, conjunctival injection, periorbital swelling ENT exam: Present: normal exam, normal oropharynx, mucous membranes moist Respiratory exam: Present: normal lung sounds bilaterally. Absent: respiratory distress, wheezes, rales, rhonchi, stridor Cardiovascular Exam: Present: regular rate, normal rhythm, normal heart sounds. Absent: systolic murmur, diastolic murmur, rubs, gallop, clicks GI/Abdominal exam: Present: soft, tenderness (generalized), normal bowel sounds. Absent: distended, guarding, rebound, rigid Neurological exam: Present: alert, oriented X3, CN II-XII intact Psychiatric exam: Present: normal affect, normal mood Skin exam: Present: warm, dry, intact, normal color. Absent: rash Course Vital Signs 04/08/20 04/08/20 04/08/20 19:48 20:30 22:21 Temperature 97.6 F 97.7 F Pulse Rate 105 H 80 68 Respiratory 18 18 18 Rate Blood Pressure 125/81 136/90 102/68 O2 Sat by Pulse 96 94 L 97 Oximetry EKG Findings - EKG Comments: EKG Findings:: EKG obtained at 2026 shows normal sinus rhythm with a sinus arrhythmia. Ventricular rate is 76, W[place] interval 140, QRS duration 80, QT 384, QTC 432. No evidence of ST elevation or depression. Medical Decision Making - Medical Decision Making 40-year-old female patient presents to the emergency department today for evaluation of vomiting and abdominal discomfort. Patient states symptoms started yesterday. Physical examination revealed mild generalized tenderness. Labs reviewed and were unremarkable. She is given IV fluids, Zofran, Benadryl. Upon reevaluation patient does report improvement of symptoms. She is resting comfortably in bed. His no further episodes of vomiting. She does have history of gastroparesis and states her symptoms are consistent with her usual chronic symptoms. She'll be discharged to follow up with her primary care physician for recheck in 1-2 days. Return parameters were discussed in detail. She verbalizes understanding and agrees with this plan. - Lab Data Result diagrams: 04/08/20 20:13 04/08/20 20:13 Lab Results 04/08/20 04/08/20 04/08/20 Range/Units 20:00 20:00 20:13 WBC 9.1 (3.8-10.6) k/uL RBC 4.44 (3.80-5.40) m/uL Hgb 14.3 (11.4-16.0) gm/dL Hct 44.2 (34.0-46.0) % MCV 99.5 (80.0-100.0) fL MCH 32.2 (25.0-35.0) pg MCHC 32.3 (31.0-37.0) g/dL RDW 12.6 (11.5-15.5) % Plt Count 395 (150-450) k/uL Neutrophils % 49 % Lymphocytes % 42 % Monocytes % 5 % Eosinophils % 2 % Basophils % 0 % Neutrophils # 4.5 (1.3-7.7) k/uL Lymphocytes # 3.8 (1.0-4.8) k/uL Monocytes # 0.5 (0-1.0) k/uL Eosinophils # 0.2 (0-0.7) k/uL Basophils # 0.0 (0-0.2) k/uL Sodium (137-145) mmol/L Potassium (3.5-5.1) mmol/L Chloride (98-107) mmol/L Carbon Dioxide (22-30) mmol/L Anion Gap mmol/L BUN (7-17) mg/dL Creatinine (0.52-1.04) mg/dL Est GFR (CKD-EPI)AfAm (>60 ml/min/1.73 sqM) Est GFR (CKD-EPI)NonAf (>60 ml/min/1.73 sqM) Glucose (74-99) mg/dL Plasma Lactic Acid Jose (0.7-2.0) mmol/L Calcium (8.4-10.2) mg/dL Total Bilirubin (0.2-1.3) mg/dL AST (14-36) U/L ALT (4-34) U/L Alkaline Phosphatase (38-126) U/L Troponin I (0.000-0.034) ng/mL Total Protein (6.3-8.2) g/dL Albumin (3.5-5.0) g/dL Amylase (30-110) U/L Lipase (23-300) U/L Urine Color Yellow Urine Appearance Cloudy H (Clear) Urine pH 6.5 (5.0-8.0) Ur Specific Morton 1.026 (1.001-1.035) Urine Protein 1+ H (Negative) Urine Glucose (UA) Negative (Negative) Urine Ketones 1+ H (Negative) Urine Blood Small H (Negative) Urine Nitrite Negative (Negative) Urine Bilirubin Negative (Negative) Urine Urobilinogen 3.0 (<2.0) mg/dL Ur Leukocyte Esterase Negative (Negative) Urine RBC 2 (0-5) /hpf Urine WBC 2 (0-5) /hpf Ur Squamous Epith Cells 6 H (0-4) /hpf Amorphous Sediment Rare H (None) /hpf Urine Mucus Many H (None) /hpf Urine HCG, Qual Not Detected (Not Detectd) 04/08/20 04/08/20 04/08/20 Range/Units 20:13 20:13 20:13 WBC (3.8-10.6) k/uL RBC (3.80-5.40) m/uL Hgb (11.4-16.0) gm/dL Hct (34.0-46.0) % MCV (80.0-100.0) fL MCH (25.0-35.0) pg MCHC (31.0-37.0) g/dL RDW (11.5-15.5) % Plt Count (150-450) k/uL Neutrophils % % Lymphocytes % % Monocytes % % Eosinophils % % Basophils % % Neutrophils # (1.3-7.7) k/uL Lymphocytes # (1.0-4.8) k/uL Monocytes # (0-1.0) k/uL Eosinophils # (0-0.7) k/uL Basophils # (0-0.2) k/uL Sodium 137 (137-145) mmol/L Potassium 4.3 (3.5-5.1) mmol/L Chloride 104 (98-107) mmol/L Carbon Dioxide 22 (22-30) mmol/L Anion Gap 11 mmol/L BUN 10 (7-17) mg/dL Creatinine 0.62 (0.52-1.04) mg/dL Est GFR (CKD-EPI)AfAm >90 (>60 ml/min/1.73 sqM) Est GFR (CKD-EPI)NonAf >90 (>60 ml/min/1.73 sqM) Glucose 108 H (74-99) mg/dL Plasma Lactic Acid Jose 1.4 (0.7-2.0) mmol/L Calcium 9.9 (8.4-10.2) mg/dL Total Bilirubin 0.7 (0.2-1.3) mg/dL AST 19 (14-36) U/L ALT 10 (4-34) U/L Alkaline Phosphatase 67 (38-126) U/L Troponin I <0.012 (0.000-0.034) ng/mL Total Protein 8.2 (6.3-8.2) g/dL Albumin 4.9 (3.5-5.0) g/dL Amylase 45 (30-110) U/L Lipase 26 (23-300) U/L Urine Color Urine Appearance (Clear) Urine pH (5.0-8.0) Ur Specific Morton (1.001-1.035) Urine Protein (Negative) Urine Glucose (UA) (Negative) Urine Ketones (Negative) Urine Blood (Negative) Urine Nitrite (Negative) Urine Bilirubin (Negative) Urine Urobilinogen (<2.0) mg/dL Ur Leukocyte Esterase (Negative) Urine RBC (0-5) /hpf Urine WBC (0-5) /hpf Ur Squamous Epith Cells (0-4) /hpf Amorphous Sediment (None) /hpf Urine Mucus (None) /hpf Urine HCG, Qual (Not Detectd) - Radiology Data Radiology results: report reviewed, image reviewed Two-view x-ray of the abdomen is obtained. Report was reviewed in its entirety. Impression by Dr. Powell shows nonacute abdomen. No change. Disposition Clinical Impression: Abdominal pain, Vomiting Disposition: HOME SELF-CARE Condition: Good Instructions (If sedation given, give patient instructions): Acute Nausea and Vomiting (ED), Abdominal Pain (ED) Additional Instructions: Start with clear liquid diet and advance as tolerated. Follow-up with your primary care physician for recheck in 1-2 days. Return to the emergency department immediately for any new, worsening, or concerning symptoms. Is patient prescribed a controlled substance at d/c from ED?: No Referrals: Jewell Bui MD [Primary Care Provider] - 1-2 days Time of Disposition: 22:29
[2020-04-08 20:36] LABS: Basophils % (A) 0 %; Eosinophils # (A) 0.2 k/uL (0-0.7); Eosinophils % (A) 2 %; HCT 44.2 % (34.0-46.0); HGB 14.3 gm/dL (11.4-16.0); Lymphocytes # (A) 3.8 k/uL (1.0-4.8); Lymphocytes % (A) 42 %; MCH 32.2 pg (25.0-35.0); MCHC 32.3 g/dL (31.0-37.0); MCV 99.5 fL (80.0-100.0); Mean Platelet Volume 8.2; Monocytes # (A) 0.5 k/uL (0-1.0); Monocytes % (A) 5 %; Neutrophils # (A) 4.5 k/uL (1.3-7.7); Neutrophils % (A) 49 %; Platelet Count 395 k/uL (150-450); RBC 4.44 m/uL (3.80-5.40); RDW 12.6 % (11.5-15.5); WBC 9.1 k/uL (3.8-10.6)
[2020-04-08 20:38] LABS: ALT 10 U/L (4-34); AST 19 U/L (14-36); African American GFR (CKD) >90 (>60 ml/min/1.73 sqM); Albumin 4.9 g/dL (3.5-5.0); Alkaline Phosphatase 67 U/L (38-126); Amylase 45 U/L (30-110); Anion Gap 11 mmol/L; Blood Urea Nitrogen 10 mg/dL (7-17); Calcium 9.9 mg/dL (8.4-10.2); Carbon Dioxide 22 mmol/L (22-30); Chloride 104 mmol/L (98-107); Glucose 108 mg/dL (74-99); Non-African American GFR(CKD) >90 (>60 ml/min/1.73 sqM); Potassium 4.3 mmol/L (3.5-5.1); Sodium 137 mmol/L (137-145); Total Bilirubin 0.7 mg/dL (0.2-1.3); Total Protein 8.2 g/dL (6.3-8.2)
--- NOTE | 2020-04-08 20:58 | XR ---
EXAMINATION TYPE: XR KUB DATE OF EXAM: 04/08/2020 COMPARISON: 02/02/2020 HISTORY: Abdominal pain TECHNIQUE: 2 views upright FINDINGS: Bowel gas pattern is normal. There is no sign of intestinal obstruction or pneumoperitoneum . Fecal pattern is normal. Lung bases are clear. IMPRESSION: Nonacute abdomen. No change.
[2020-04-08 22:23] VITALS: BP 102/68
[2020-04-08 23:06] VITALS: PULSE 56; RESP 16; TEMP 97.9
== END 2020-04-08 23:14 | disposition home or self-care (01) ==
LOC: EC 19:47
DX: R10.84 Generalized abdominal pain (principal); R11.2 Nausea with vomiting, unspecified; R10.817 Generalized abdominal tenderness; F17.200 Nicotine dependence, unspecified, uncomplicated; Z88.1 Allergy status to other antibiotic agents; Z88.2 Allergy status to sulfonamides; Z90.89 Acquired absence of other organs; Z98.51 Tubal ligation status; Z87.19 Personal history of other diseases of the digestive system
CPT/HCPCS: 99284; 96374; 96375 ×2; 96361 ×2; 36415; 93005; 80053; 82150; 83605; 83690; 84484; 85025; 81001; 81025; 74018; J1200; J2405; J1170

== ENCOUNTER 2020-04-09 14:59 | Emergency (ER) | payer MEDICARE ==
[2020-04-09 15:08] VITALS: RESP 18; TEMP 98.1
[2020-04-09] MEDS ORDERED: SODIUM CHLORIDE 0.9% 500 ML 500 ML IV ONE (15:17)
[2020-04-09] MEDS ORDERED: HYDROmorphone 0.5 MG/0.5 ML SYRINGE IVP STA ×2 (15:21→16:21)
[2020-04-09] MEDS ORDERED: ONDANSETRON 4 MG/2 ML VIAL IVP STA (15:21)
--- NOTE | 2020-04-09 15:24 | ED ---
Abdominal Pain HPI - General Chief Complaint: Abdominal Pain Stated Complaint: abd cramps Time Seen by Provider: 04/09/20 15:16 Source: patient Mode of arrival: wheelchair Limitations: no limitations - History of Present Illness Initial Comments: 40-year-old female with history of gastroparesis presenting to emergency department today for chief complaint of left upper quadrant abdominal pain. Patient states she has had left upper quadrant abdominal pain on and off for the past 6 years she states she is 6-8 month period where the pain was much better after receiving lidocaine injections" into the entrance of the stomach". Patient states this was performed at [facility]. Patient denies vomiting. Patient states that around her period the symptoms seem to get worse. She finished menstruation 3 days ago and has had pain since. Patient states the pain is crampy in nature without radiation. Patient states that it feels identical to her chronic exacerbation of pain. Denies any changes. Patient states she was here yesterday with similar symptoms. Patient has an upcoming PCP appointment. Patient states she is nauseous. Denies diarrhea, constipation, dark or bloody stools. Denies fevers, cough. Patient has no additional complaints. Upon arrival she appears nontoxic. - Related Data Previous Rx's Medication Instructions Recorded Pantoprazole [Protonix] 40 mg PO AC-BRKFST #20 tablet. 01/06/20 Metoclopramide HCl [Reglan] 5 mg PO AC-TID PRN #60 tablet 02/02/20 Metoclopramide HCl [Reglan] 5 mg PO TID #12 tablet 03/10/20 Pantoprazole [Protonix] 40 mg PO DAILY #14 tablet. 03/10/20 Allergies Allergy/AdvReac Type Severity Reaction Status Date / Time sulfamethoxazole Allergy Rash/Hives Verified 04/09/20 15:08 [From Bactrim] trimethoprim [From Bactrim] Allergy Rash/Hives Verified 04/09/20 15:08 Review of Systems ROS Statement: Those systems with pertinent positive or pertinent negative responses have been documented in the HPI. ROS Other: All systems not noted in ROS Statement are negative. Past Medical History Past Medical History: GERD/Reflux, Hyperlipidemia, Renal Disease Additional Past Medical History / Comment(s): Gastroparesis, gastritis, esophageal tears, chronic low back pain, herniated lower discs, bilateral wrist tendonitis with R side worse, R shoulder pain past couple months, numbness to bilateral hand fingers when first wakes, migraines, instructed to sleep with HOB up 6 inches d/t heart rate dropping with sleep, vertigo, polynephritis, UTI. History of Any Multi-Drug Resistant Organisms: None Reported Past Surgical History: Appendectomy, Tubal Ligation Additional Past Surgical History / Comment(s): Botox injection "mouth" of stomach, EGDs, colonoscopy, vaginal cyst drained. Past Anesthesia/Blood Transfusion Reactions: No Reported Reaction Additional Past Anesthesia/Blood Transfusion Reaction / Comment(s): never had blood transfusion. Past Psychological History: Anxiety, Depression Smoking Status: Current every day smoker Past Alcohol Use History: None Reported Past Drug Use History: Marijuana - Past Family History Mother Family Medical History: Cancer Additional Family Medical History / Comment(s): Mother is living. She has had breast cancer and 2 back surgeries. Father Family Medical History: No Reported History Additional Family Medical History / Comment(s): Father had ETOH abuse and was manic depressive. He after a fall where he fractured his back then "drank" himself to . Brother(s) Family Medical History: Neurologic Disorder Sister(s) Family Medical History: No Reported History Son(s) Family Medical History: No Reported History Daughter(s) Family Medical History: No Reported History General Exam - General Exam Comments Initial Comments: General: The patient is awake and alert, in no distress, and does not appear acutely ill. Eye: Pupils are equal, round and reactive to light, extra-ocular movements are intact. No nystagmus. There is normal conjunctiva bilaterally. No signs of icterus. Cardiovascular: There is a regular rate and rhythm. No murmur, rub or gallop is appreciated. Respiratory: Lungs are clear to auscultation, respirations are non-labored, breath sounds are equal. No wheezes, stridor, rales, or rhonchi. Gastrointestinal: Soft, non-distended, mild tenderness of the LUQ abdomen without masses or organomegaly noted. There is no rebound or guarding present. Musculoskeletal: Normal ROM, no tenderness. Strength 5/5. Sensation intact. Pulses equal bilaterally 2+. Neurological: A&O x 3. CN II-XII intact grossly, There are no obvious motor or sensory deficits. Coordination appears grossly intact. Speech is normal. Skin: Skin is warm and dry and no rashes or lesions are noted. Psychiatric: Cooperative, appropriate mood & affect, normal judgment. Limitations: no limitations Course Vital Signs 04/09/20 04/09/20 15:03 17:30 Temperature 98.1 F 98.1 F Pulse Rate 89 72 Respiratory 18 18 Rate Blood Pressure 122/82 124/76 O2 Sat by Pulse 96 100 Oximetry Medical Decision Making - Medical Decision Making 40yo female presenting today for cc of abdominal pain. States exact characteristic of her chronic gastroparaesis that increased after her periods. Treated symptomatically. Refused imaging studies. Patient states she has an appointment Thursday with PCP where she will arrange GI f/u. Patient appears nontoxic, symptoms controlled in ER. Discharged appearing well no no significant laboratory derangements. - Lab Data Result diagrams: 04/09/20 15:54 04/09/20 15:54 Lab Results 04/09/20 04/09/20 04/09/20 Range/Units 15:54 15:54 15:54 WBC 5.8 (3.8-10.6) k/uL RBC 3.93 (3.80-5.40) m/uL Hgb 12.7 (11.4-16.0) gm/dL Hct 38.6 (34.0-46.0) % MCV 98.2 (80.0-100.0) fL MCH 32.3 (25.0-35.0) pg MCHC 32.8 (31.0-37.0) g/dL RDW 11.9 (11.5-15.5) % Plt Count 306 (150-450) k/uL Neutrophils % 53 % Lymphocytes % 38 % Monocytes % 5 % Eosinophils % 2 % Basophils % 0 % Neutrophils # 3.1 (1.3-7.7) k/uL Lymphocytes # 2.2 (1.0-4.8) k/uL Monocytes # 0.3 (0-1.0) k/uL Eosinophils # 0.1 (0-0.7) k/uL Basophils # 0.0 (0-0.2) k/uL Sodium 136 L (137-145) mmol/L Potassium 4.6 (3.5-5.1) mmol/L Chloride 107 (98-107) mmol/L Carbon Dioxide 21 L (22-30) mmol/L Anion Gap 8 mmol/L BUN 9 (7-17) mg/dL Creatinine 0.52 (0.52-1.04) mg/dL Est GFR (CKD-EPI)AfAm >90 (>60 ml/min/1.73 sqM) Est GFR (CKD-EPI)NonAf >90 (>60 ml/min/1.73 sqM) Glucose 91 (74-99) mg/dL Plasma Lactic Acid Jose 0.8 (0.7-2.0) mmol/L Calcium 9.3 (8.4-10.2) mg/dL Total Bilirubin 0.9 (0.2-1.3) mg/dL AST 29 (14-36) U/L ALT 9 (4-34) U/L Alkaline Phosphatase 50 (38-126) U/L Total Protein 7.3 (6.3-8.2) g/dL Albumin 4.2 (3.5-5.0) g/dL Amylase 44 (30-110) U/L Lipase 27 (23-300) U/L Disposition Clinical Impression: Abdominal cramps Disposition: HOME SELF-CARE Condition: Good Instructions (If sedation given, give patient instructions): Gastroparesis (ED) Additional Instructions: Please use medication as discussed. Please follow-up with family doctor on Thursday as scheduled. Please return to emergency room if the symptoms increase or worsen or for any other concerns. Is patient prescribed a controlled substance at d/c from ED?: No Referrals: Jewell Bui MD [Primary Care Provider] - 1-2 days Time of Disposition: 16:43
[2020-04-09 16:04] LABS: Basophils % (A) 0 %; Eosinophils # (A) 0.1 k/uL (0-0.7); Eosinophils % (A) 2 %; HCT 38.6 % (34.0-46.0); HGB 12.7 gm/dL (11.4-16.0); Lymphocytes # (A) 2.2 k/uL (1.0-4.8); Lymphocytes % (A) 38 %; MCH 32.3 pg (25.0-35.0); MCHC 32.8 g/dL (31.0-37.0); MCV 98.2 fL (80.0-100.0); Mean Platelet Volume 7.9; Monocytes # (A) 0.3 k/uL (0-1.0); Monocytes % (A) 5 %; Neutrophils # (A) 3.1 k/uL (1.3-7.7); Neutrophils % (A) 53 %; Platelet Count 306 k/uL (150-450); RBC 3.93 m/uL (3.80-5.40); RDW 11.9 % (11.5-15.5); WBC 5.8 k/uL (3.8-10.6)
[2020-04-09 16:13] LABS: ALT 9 U/L (4-34); AST 29 U/L (14-36); African American GFR (CKD) >90 (>60 ml/min/1.73 sqM); Albumin 4.2 g/dL (3.5-5.0); Alkaline Phosphatase 50 U/L (38-126); Amylase 44 U/L (30-110); Anion Gap 8 mmol/L; Blood Urea Nitrogen 9 mg/dL (7-17); Calcium 9.3 mg/dL (8.4-10.2); Carbon Dioxide 21 mmol/L (22-30); Chloride 107 mmol/L (98-107); Glucose 91 mg/dL (74-99); Non-African American GFR(CKD) >90 (>60 ml/min/1.73 sqM); Sodium 136 mmol/L (137-145); Total Bilirubin 0.9 mg/dL (0.2-1.3); Total Protein 7.3 g/dL (6.3-8.2)
[2020-04-09 16:36] LABS: Potassium 4.6 mmol/L (3.5-5.1)
[2020-04-09 17:43] VITALS: BP 124/76; PULSE 72
== END 2020-04-09 17:30 | disposition home or self-care (01) ==
LOC: EC 14:59
DX: R10.12 Left upper quadrant pain (principal); R11.0 Nausea; F17.200 Nicotine dependence, unspecified, uncomplicated; Z88.2 Allergy status to sulfonamides; Z88.1 Allergy status to other antibiotic agents; Z87.19 Personal history of other diseases of the digestive system; Z98.890 Other specified postprocedural states
CPT/HCPCS: 36415; 80053; 82150; 83605; 83690; 85025; 99284; 96374; 96375; 96376; J2405; J1170

== ENCOUNTER 2020-04-26 14:12 | Emergency (ER) | payer MEDICARE ==
[2020-04-26 14:36] VITALS: RESP 18
[2020-04-26] MEDS ORDERED: PANTOPRAZOLE 40 MG/10 ML VIAL IVP STA (15:00)
[2020-04-26] MEDS ORDERED: MORPHINE SULFATE 4 MG/ML SYRINGE IV STA (15:00)
[2020-04-26] MEDS ORDERED: SODIUM CHLORIDE 0.9% 1,000 ML IV STA ×2 (15:00)
[2020-04-26] MEDS ORDERED: METOCLOPRAMIDE 5 MG/ML 2 ML VIAL IVP STA (15:00)
[2020-04-26] MEDS ORDERED: diphenhydrAMINE 50 MG/ML 1 ML VIAL IVP STA (15:00)
--- NOTE | 2020-04-26 15:05 | ED ---
Abdominal Pain HPI - General Chief Complaint: Abdominal Pain Stated Complaint: Vomiting Time Seen by Provider: 04/26/20 14:49 Source: patient, RN notes reviewed, old records reviewed Mode of arrival: wheelchair Limitations: no limitations - History of Present Illness Initial Comments: Prashant hein a 40-year-old female presents emergency department today for evaluation with concern for nausea and vomiting. She reports she has a history of cyclic vomiting syndrome. Patient reports that she has noticed some recent blood within her vomit. She states that she does have an upcoming appointment with GI specialist Dr. Montenegro on Thursday. She reported some mild diarrhea. She states this occurs often related to menstrual cycle. - Related Data Home Medications Medication Instructions Recorded Confirmed Ondansetron Odt [Zofran Odt] 8 mg PO TID PRN 04/27/20 04/27/20 Polyethylene Glycol 3350 [Miralax] 17 gm PO DAILY PRN 04/27/20 04/27/20 Previous Rx's Medication Instructions Recorded Pantoprazole [Protonix] 40 mg PO DAILY #14 tablet. 03/10/20 Allergies Allergy/AdvReac Type Severity Reaction Status Date / Time sulfamethoxazole Allergy Rash/Hives Verified 04/27/20 08:28 [From Bactrim] trimethoprim [From Bactrim] Allergy Rash/Hives Verified 04/27/20 08:28 Review of Systems ROS Statement: Those systems with pertinent positive or pertinent negative responses have been documented in the HPI. ROS Other: All systems not noted in ROS Statement are negative. Past Medical History Past Medical History: GERD/Reflux, Hyperlipidemia, Renal Disease Additional Past Medical History / Comment(s): Gastroparesis, gastritis, esophageal tears, chronic low back pain, herniated lower discs, bilateral wrist tendonitis with R side worse, R shoulder pain past couple months, numbness to bilateral hand fingers when first wakes, migraines, instructed to sleep with HOB up 6 inches d/t heart rate dropping with sleep, vertigo, polynephritis, UTI. History of Any Multi-Drug Resistant Organisms: None Reported Past Surgical History: Appendectomy, Tubal Ligation Additional Past Surgical History / Comment(s): Botox injection "mouth" of stomach, EGDs, colonoscopy, vaginal cyst drained. Past Anesthesia/Blood Transfusion Reactions: No Reported Reaction Additional Past Anesthesia/Blood Transfusion Reaction / Comment(s): never had blood transfusion. Past Psychological History: Anxiety, Depression Smoking Status: Current every day smoker Past Alcohol Use History: None Reported Past Drug Use History: Marijuana - Past Family History Mother Family Medical History: Cancer Additional Family Medical History / Comment(s): Mother is living. She has had breast cancer and 2 back surgeries. Father Family Medical History: No Reported History Additional Family Medical History / Comment(s): Father had ETOH abuse and was manic depressive. He after a fall where he fractured his back then "drank" himself to . Brother(s) Family Medical History: Neurologic Disorder Sister(s) Family Medical History: No Reported History Son(s) Family Medical History: No Reported History Daughter(s) Family Medical History: No Reported History General Exam Limitations: no limitations General appearance: alert, in no apparent distress Head exam: Present: atraumatic, normocephalic, normal inspection Eye exam: Present: normal appearance, PERRL, EOMI. Absent: scleral icterus, conjunctival injection, periorbital swelling ENT exam: Present: normal exam, mucous membranes moist Neck exam: Present: normal inspection. Absent: tenderness, meningismus, lymphadenopathy Respiratory exam: Present: normal lung sounds bilaterally. Absent: respiratory distress, wheezes, rales, rhonchi, stridor Cardiovascular Exam: Present: regular rate, normal rhythm, normal heart sounds. Absent: systolic murmur, diastolic murmur, rubs, gallop, clicks GI/Abdominal exam: Present: soft, normal bowel sounds. Absent: distended, tenderness, guarding, rebound, rigid Extremities exam: Present: normal inspection, full ROM, normal capillary refill. Absent: tenderness, pedal edema, joint swelling, calf tenderness Back exam: Present: normal inspection Neurological exam: Present: alert, oriented X3, CN II-XII intact Psychiatric exam: Present: normal affect, normal mood Skin exam: Present: warm, dry, intact, normal color. Absent: rash Course Vital Signs 04/26/20 04/26/20 04/26/20 14:33 15:36 17:00 Temperature 97.6 F 97.9 F Pulse Rate 69 61 65 Respiratory 18 18 18 Rate Blood Pressure 139/80 113/85 133/93 O2 Sat by Pulse 96 92 L 95 Oximetry Medical Decision Making - Medical Decision Making 40 year old female presents today with nausea and vomiting. Patient has cyclic vomiting syndrome. Labs were reviewed, mild dehydration. Patient reevaluated, resting inbed. Discussed follow up with PCP. - Lab Data Result diagrams: 04/26/20 15:26 04/26/20 15:26 Lab Results 04/26/20 04/26/20 04/26/20 Range/Units 15:26 15:26 15:26 WBC 9.3 (3.8-10.6) k/uL RBC 4.51 (3.80-5.40) m/uL Hgb 14.2 (11.4-16.0) gm/dL Hct 44.1 (34.0-46.0) % MCV 98.0 (80.0-100.0) fL MCH 31.6 (25.0-35.0) pg MCHC 32.3 (31.0-37.0) g/dL RDW 12.1 (11.5-15.5) % Plt Count 395 (150-450) k/uL Neutrophils % 86 % Lymphocytes % 11 % Monocytes % 2 % Eosinophils % 1 % Basophils % 0 % Neutrophils # 8.0 H (1.3-7.7) k/uL Lymphocytes # 1.0 (1.0-4.8) k/uL Monocytes # 0.2 (0-1.0) k/uL Eosinophils # 0.1 (0-0.7) k/uL Basophils # 0.0 (0-0.2) k/uL PT 9.8 (9.0-12.0) sec INR 0.9 (<1.2) APTT 21.0 L (22.0-30.0) sec Sodium (137-145) mmol/L Potassium (3.5-5.1) mmol/L Chloride (98-107) mmol/L Carbon Dioxide (22-30) mmol/L Anion Gap mmol/L BUN (7-17) mg/dL Creatinine (0.52-1.04) mg/dL Est GFR (CKD-EPI)AfAm (>60 ml/min/1.73 sqM) Est GFR (CKD-EPI)NonAf (>60 ml/min/1.73 sqM) Glucose (74-99) mg/dL Plasma Lactic Acid Jose (0.7-2.0) mmol/L Calcium (8.4-10.2) mg/dL Total Bilirubin (0.2-1.3) mg/dL AST (14-36) U/L ALT (4-34) U/L Alkaline Phosphatase (38-126) U/L Total Protein (6.3-8.2) g/dL Albumin (3.5-5.0) g/dL Amylase (30-110) U/L Lipase (23-300) U/L Urine Color Red Urine Appearance Turbid H (Clear) Urine pH 6.0 (5.0-8.0) Ur Specific Childress 1.031 (1.001-1.035) Urine Protein 2+ H (Negative) Urine Glucose (UA) Trace H (Negative) Urine Ketones 2+ H (Negative) Urine Blood Small H (Negative) Urine Nitrite Negative (Negative) Urine Bilirubin Negative (Negative) Urine Urobilinogen 3.0 (<2.0) mg/dL Ur Leukocyte Esterase Negative (Negative) Urine RBC 8 H (0-5) /hpf Urine Bacteria Many H (None) /hpf Hyaline Casts 43 H (0-2) /lpf Urine Mucus Many H (None) /hpf 04/26/20 04/26/20 Range/Units 15:26 15:26 WBC (3.8-10.6) k/uL RBC (3.80-5.40) m/uL Hgb (11.4-16.0) gm/dL Hct (34.0-46.0) % MCV (80.0-100.0) fL MCH (25.0-35.0) pg MCHC (31.0-37.0) g/dL RDW (11.5-15.5) % Plt Count (150-450) k/uL Neutrophils % % Lymphocytes % % Monocytes % % Eosinophils % % Basophils % % Neutrophils # (1.3-7.7) k/uL Lymphocytes # (1.0-4.8) k/uL Monocytes # (0-1.0) k/uL Eosinophils # (0-0.7) k/uL Basophils # (0-0.2) k/uL PT (9.0-12.0) sec INR (<1.2) APTT (22.0-30.0) sec Sodium 142 (137-145) mmol/L Potassium 4.2 (3.5-5.1) mmol/L Chloride 111 H (98-107) mmol/L Carbon Dioxide 19 L (22-30) mmol/L Anion Gap 12 mmol/L BUN 10 (7-17) mg/dL Creatinine 0.58 (0.52-1.04) mg/dL Est GFR (CKD-EPI)AfAm >90 (>60 ml/min/1.73 sqM) Est GFR (CKD-EPI)NonAf >90 (>60 ml/min/1.73 sqM) Glucose 150 H (74-99) mg/dL Plasma Lactic Acid Jose 1.6 (0.7-2.0) mmol/L Calcium 10.4 H (8.4-10.2) mg/dL Total Bilirubin 0.7 (0.2-1.3) mg/dL AST 21 (14-36) U/L ALT 11 (4-34) U/L Alkaline Phosphatase 76 (38-126) U/L Total Protein 8.4 H (6.3-8.2) g/dL Albumin 4.9 (3.5-5.0) g/dL Amylase 65 (30-110) U/L Lipase 24 (23-300) U/L Urine Color Urine Appearance (Clear) Urine pH (5.0-8.0) Ur Specific Childress (1.001-1.035) Urine Protein (Negative) Urine Glucose (UA) (Negative) Urine Ketones (Negative) Urine Blood (Negative) Urine Nitrite (Negative) Urine Bilirubin (Negative) Urine Urobilinogen (<2.0) mg/dL Ur Leukocyte Esterase (Negative) Urine RBC (0-5) /hpf Urine Bacteria (None) /hpf Hyaline Casts (0-2) /lpf Urine Mucus (None) /hpf 04/26/20 18:00 EKG performed at 1631 shows normal sinus rhythm with sinus arrhythmia, septal infarct age and tripped. She tolerated 65 beats were minute period. It was 1:30 milliseconds. QRS duration is 82 ms. QT QTc is 440/457 ms. Disposition Clinical Impression: Nausea & vomiting Disposition: HOME SELF-CARE Condition: Good Instructions (If sedation given, give patient instructions): Acute Nausea and Vomiting (ED) Additional Instructions: Please use medication as discussed. Please follow up with family doctor if symptoms have not improved over the next two days. Please return to the emergency room if your symptoms increase or worsen or for any other concerns. Is patient prescribed a controlled substance at d/c from ED?: No Referrals: Jewell Bui MD [Primary Care Provider] - 1-2 days Time of Disposition: 11:40
[2020-04-26 15:51] LABS: Basophils % (A) 0 %; Eosinophils # (A) 0.1 k/uL (0-0.7); Eosinophils % (A) 1 %; HCT 44.1 % (34.0-46.0); HGB 14.2 gm/dL (11.4-16.0); Lymphocytes % (A) 11 %; MCH 31.6 pg (25.0-35.0); MCHC 32.3 g/dL (31.0-37.0); Monocytes # (A) 0.2 k/uL (0-1.0); Monocytes % (A) 2 %; Neutrophils % (A) 86 %; Platelet Count 395 k/uL (150-450); RBC 4.51 m/uL (3.80-5.40); RDW 12.1 % (11.5-15.5); WBC 9.3 k/uL (3.8-10.6)
[2020-04-26 15:52] LABS: ALT 11 U/L (4-34); AST 21 U/L (14-36); African American GFR (CKD) >90 (>60 ml/min/1.73 sqM); Albumin 4.9 g/dL (3.5-5.0); Alkaline Phosphatase 76 U/L (38-126); Amylase 65 U/L (30-110); Anion Gap 12 mmol/L; Blood Urea Nitrogen 10 mg/dL (7-17); Calcium 10.4 mg/dL (8.4-10.2); Carbon Dioxide 19 mmol/L (22-30); Chloride 111 mmol/L (98-107); Glucose 150 mg/dL (74-99); Non-African American GFR(CKD) >90 (>60 ml/min/1.73 sqM); Potassium 4.2 mmol/L (3.5-5.1); Sodium 142 mmol/L (137-145); Total Bilirubin 0.7 mg/dL (0.2-1.3); Total Protein 8.4 g/dL (6.3-8.2)
[2020-04-26 15:53] LABS: Appearance,Urine Turbid (Clear); Bacteria,Urine Many /hpf; Bilirubin,Urine Negative (Negative); Blood,Urine Small (Negative); Color,Urine Red; Glucose,Urine (UA) Trace (Negative); Hyaline Casts,Urine 43 /lpf (0-2); Ketones,Urine 2+ (Negative); Leukocyte Esterase,Urine Negative (Negative); Mucus,Urine Many /hpf; Nitrite,Urine Negative (Negative); Protein,Urine 2+ (Negative); RBC,Urine 8 /hpf (0-5); Specific Gravity,Urine 1.031 (1.001-1.035)
[2020-04-26 16:02] LABS: INR 0.9 (<1.2); Prothrombin Time 9.8 sec (9.0-12.0)
[2020-04-26] MEDS ORDERED: HYDROmorphone 1 MG/ML 1 ML SYRINGE IVP STA (16:44)
[2020-04-26] MEDS ORDERED: ONDANSETRON 4 MG/2 ML VIAL IVP STA (16:44)
[2020-04-26 17:04] VITALS: BP 133/93; PULSE 65; TEMP 97.9
== END 2020-04-26 17:15 | disposition home or self-care (01) ==
LOC: EC 14:12
DX: R11.2 Nausea with vomiting, unspecified (principal); F17.200 Nicotine dependence, unspecified, uncomplicated; Z88.2 Allergy status to sulfonamides; Z80.3 Family history of malignant neoplasm of breast; Z90.89 Acquired absence of other organs; Z98.51 Tubal ligation status
CPT/HCPCS: 36415; 93005; 80053; 82150; 83605; 83690; 85025; 85610; 85730; 81001; 99284; 96374; 96375 ×5; 96361 ×2; J2270; J1200; J2765; J2405; J1170; C9113

== ENCOUNTER 2020-04-26 21:00 | Observation (INO) | payer MEDICARE ==
[2020-04-26] MEDS ORDERED: SODIUM CHLORIDE 0.9% 1,000 ML IV STA ×2 (21:28)
[2020-04-26 21:59] LABS: Basophils % (A) 0 %; Eosinophils # (A) 0.1 k/uL (0-0.7); Eosinophils % (A) 1 %; HCT 41.8 % (34.0-46.0); HGB 13.8 gm/dL (11.4-16.0); Lymphocytes # (A) 0.8 k/uL (1.0-4.8); Lymphocytes % (A) 10 %; MCH 33.6 pg (25.0-35.0); MCHC 32.9 g/dL (31.0-37.0); Mean Platelet Volume 8.3; Monocytes # (A) 0.2 k/uL (0-1.0); Monocytes % (A) 2 %; Neutrophils # (A) 7.3 k/uL (1.3-7.7); Neutrophils % (A) 87 %; Platelet Count 359 k/uL (150-450); RDW 12.2 % (11.5-15.5); WBC 8.5 k/uL (3.8-10.6)
[2020-04-26] MEDS ORDERED: MORPHINE SULFATE 4 MG/ML SYRINGE IVP STA (22:00)
[2020-04-26] MEDS ORDERED: diphenhydrAMINE 50 MG/ML 1 ML VIAL IVP STA (22:00)
[2020-04-26] MEDS ORDERED: METOCLOPRAMIDE 5 MG/ML 2 ML VIAL IVP STA (22:00)
[2020-04-26 22:05] LABS: ALT 12 U/L (4-34); AST 24 U/L (14-36); African American GFR (CKD) >90 (>60 ml/min/1.73 sqM); Albumin 4.7 g/dL (3.5-5.0); Alkaline Phosphatase 74 U/L (38-126); Amylase 77 U/L (30-110); Anion Gap 13 mmol/L; Blood Urea Nitrogen 12 mg/dL (7-17); Calcium 9.8 mg/dL (8.4-10.2); Carbon Dioxide 19 mmol/L (22-30); Chloride 109 mmol/L (98-107); Glucose 154 mg/dL (74-99); Non-African American GFR(CKD) >90 (>60 ml/min/1.73 sqM); Potassium 3.8 mmol/L (3.5-5.1); Sodium 141 mmol/L (137-145); Total Bilirubin 0.6 mg/dL (0.2-1.3); Total Protein 8.3 g/dL (6.3-8.2)
--- NOTE | 2020-04-26 22:25 | XR ---
EXAMINATION TYPE: XR KUB DATE OF EXAM: 04/26/2020 COMPARISON: 04/08/2020 HISTORY: Abdominal pain TECHNIQUE: 2 views upright FINDINGS: Bowel gas pattern is normal. There is no sign of intestinal obstruction or pneumoperitoneum . Fecal pattern is normal. Lung bases are clear. There are no pathologic calcifications. IMPRESSION: Nonacute abdomen.
--- NOTE | 2020-04-26 23:01 | ED ---
Abdominal Pain HPI - General Source: patient, RN notes reviewed, old records reviewed Mode of arrival: wheelchair Limitations: no limitations <Samantha Bernardo - Last Filed: 04/26/20 23:05> <Hyacinth Chau - Last Filed: 04/29/20 15:49> - General Chief Complaint: Abdominal Pain Stated Complaint: Vomiting Time Seen by Provider: 04/26/20 21:23 - History of Present Illness Initial Comments: Patient is a 40-year-old female presents emergency department today for second time with complaints of nausea and vomiting. She reports she has a history of cyclic vomiting syndrome and states this seems to be related around when her menstrual cycle occurs. She has had 2 episodes of vomiting upon arrival to the emergency department. Patient states that she was scheduled to see Dr. Montenegro from GI on Thursday. (Samantha Bernardo) - Related Data Home Medications Medication Instructions Recorded Confirmed Ondansetron Odt [Zofran ODT] 8 mg PO TID PRN 04/27/20 04/27/20 Polyethylene Glycol 3350 [Miralax] 17 gm PO DAILY PRN 04/27/20 04/27/20 Previous Rx's Medication Instructions Recorded Pantoprazole [Protonix] 40 mg PO DAILY #14 tablet. 03/10/20 Allergies Allergy/AdvReac Type Severity Reaction Status Date / Time sulfamethoxazole Allergy Rash/Hives Verified 04/27/20 08:28 [From Bactrim] trimethoprim [From Bactrim] Allergy Rash/Hives Verified 04/27/20 08:28 Review of Systems ROS Other: All systems not noted in ROS Statement are negative. <Samantha Bernardo - Last Filed: 04/26/20 23:05> ROS Other: All systems not noted in ROS Statement are negative. <Hyacinth Chau - Last Filed: 04/29/20 15:49> ROS Statement: Those systems with pertinent positive or pertinent negative responses have been documented in the HPI. Past Medical History Past Medical History: GERD/Reflux, Hyperlipidemia, Renal Disease Additional Past Medical History / Comment(s): Gastroparesis, gastritis, esophageal tears, chronic low back pain, herniated lower discs, bilateral wrist tendonitis with R side worse, R shoulder pain past couple months, numbness to bilateral hand fingers when first wakes, migraines, instructed to sleep with HOB up 6 inches d/t heart rate dropping with sleep, vertigo, polynephritis, UTI. History of Any Multi-Drug Resistant Organisms: None Reported Past Surgical History: Appendectomy, Tubal Ligation Additional Past Surgical History / Comment(s): Botox injection "mouth" of stomach, EGDs, colonoscopy, vaginal cyst drained. Past Anesthesia/Blood Transfusion Reactions: No Reported Reaction Additional Past Anesthesia/Blood Transfusion Reaction / Comment(s): never had blood transfusion. Past Psychological History: Anxiety, Depression Smoking Status: Current every day smoker Past Alcohol Use History: None Reported Past Drug Use History: Marijuana - Past Family History Mother Family Medical History: Cancer Additional Family Medical History / Comment(s): Mother is living. She has had breast cancer and 2 back surgeries. Father Family Medical History: No Reported History Additional Family Medical History / Comment(s): Father had ETOH abuse and was manic depressive. He after a fall where he fractured his back then "drank" himself to . Brother(s) Family Medical History: Neurologic Disorder Sister(s) Family Medical History: No Reported History Son(s) Family Medical History: No Reported History Daughter(s) Family Medical History: No Reported History <Samantha Bernardo - Last Filed: 04/26/20 23:05> General Exam Limitations: no limitations General appearance: alert, in no apparent distress Head exam: Present: atraumatic, normocephalic, normal inspection Eye exam: Present: normal appearance, PERRL, EOMI. Absent: scleral icterus, conjunctival injection, periorbital swelling ENT exam: Present: normal exam Neck exam: Present: normal inspection. Absent: tenderness, meningismus, lymphadenopathy Respiratory exam: Present: normal lung sounds bilaterally. Absent: respiratory distress, wheezes, rales, rhonchi, stridor Cardiovascular Exam: Present: regular rate, normal rhythm, normal heart sounds. Absent: systolic murmur, diastolic murmur, rubs, gallop, clicks GI/Abdominal exam: Present: soft, normal bowel sounds. Absent: distended, tenderness, guarding, rebound, rigid Extremities exam: Present: normal inspection, full ROM, normal capillary refill. Absent: tenderness, pedal edema, joint swelling, calf tenderness Back exam: Present: normal inspection Neurological exam: Present: alert, oriented X3, CN II-XII intact Psychiatric exam: Present: normal affect, normal mood Skin exam: Present: warm, dry, intact, normal color. Absent: rash <Samantha Bernardo - Last Filed: 04/26/20 23:05> - General Exam Comments Initial Comments: 40-year-old female. Alert and oriented 3. . Patient is vomiting. (Samantha Bernardo) Course Vital Signs 04/26/20 04/26/20 04/26/20 21:18 23:23 23:44 Temperature 98.1 F 98.6 F Pulse Rate 87 68 Pulse Rate [ Pulse Oximetery ] Respiratory 18 17 Rate Blood Pressure 113/80 92/66 105/67 Blood Pressure [Right Arm] O2 Sat by Pulse 96 99 Oximetry 04/26/20 23:50 Temperature 98.3 F Pulse Rate Pulse Rate [ 79 Pulse Oximetery ] Respiratory 18 Rate Blood Pressure Blood Pressure 115/70 [Right Arm] O2 Sat by Pulse 97 Oximetry Medical Decision Making - Lab Data Result diagrams: 04/26/20 21:48 04/26/20 21:48 - Radiology Data Radiology results: report reviewed <Samantha Bernardo - Last Filed: 04/26/20 23:05> - Lab Data Result diagrams: 04/26/20 21:48 04/26/20 21:48 <Hyacinth Chau - Last Filed: 04/29/20 15:49> - Medical Decision Making 40-year-old female presents emergency department today for evaluation with complaint of persistent nausea and vomiting. Was seen in emergency department once already today. Patient did arrive vomiting. Patient's labs are reviewed relatively unremarkable. Reevaluation patient's had some further vomiting episodes. She is given Reglan and Benadryl and slight resting in bed comfo rtably. With patient's second visit discussed admitting for observation for IV hydration and possible GI consult. (Samantha Bernardo) I was available for consultation in the emergency department. The history and physical exam were done by the midlevel provider. I was consulted for this patients care. I reviewed the case with the midlevel provider and based on their presentation of the patient, I agree with the assessment, medical decision making and plan of care as documented. Chart was dictated using [employer] dictation software. Attempts were made to correct any dictation errors however some typographical errors may persist. Patient was seen during a national state of emergency due to the Covid-19 pandemic. (Hyacinth Chau) - Lab Data Lab Results 04/26/20 04/26/20 04/26/20 Range/Units 21:48 21:48 23:11 WBC 8.5 (3.8-10.6) k/uL RBC 4.10 (3.80-5.40) m/uL Hgb 13.8 (11.4-16.0) gm/dL Hct 41.8 (34.0-46.0) % MCV 102.0 H (80.0-100.0) fL MCH 33.6 (25.0-35.0) pg MCHC 32.9 (31.0-37.0) g/dL RDW 12.2 (11.5-15.5) % Plt Count 359 (150-450) k/uL Neutrophils % 87 % Lymphocytes % 10 % Monocytes % 2 % Eosinophils % 1 % Basophils % 0 % Neutrophils # 7.3 (1.3-7.7) k/uL Lymphocytes # 0.8 L (1.0-4.8) k/uL Monocytes # 0.2 (0-1.0) k/uL Eosinophils # 0.1 (0-0.7) k/uL Basophils # 0.0 (0-0.2) k/uL PT 10.6 (9.0-12.0) sec INR 1.0 (<1.2) APTT 20.2 L (22.0-30.0) sec Sodium 141 (137-145) mmol/L Potassium 3.8 (3.5-5.1) mmol/L Chloride 109 H (98-107) mmol/L Carbon Dioxide 19 L (22-30) mmol/L Anion Gap 13 mmol/L BUN 12 (7-17) mg/dL Creatinine 0.51 L (0.52-1.04) mg/dL Est GFR (CKD-EPI)AfAm >90 (>60 ml/min/1.73 sqM) Est GFR (CKD-EPI)NonAf >90 (>60 ml/min/1.73 sqM) Glucose 154 H (74-99) mg/dL Calcium 9.8 (8.4-10.2) mg/dL Total Bilirubin 0.6 (0.2-1.3) mg/dL AST 24 (14-36) U/L ALT 12 (4-34) U/L Alkaline Phosphatase 74 (38-126) U/L Total Protein 8.3 H (6.3-8.2) g/dL Albumin 4.7 (3.5-5.0) g/dL Amylase 77 (30-110) U/L Lipase 15 L (23-300) U/L - Radiology Data KUB shows nonacute abdomen. (Samantha Bernardo) Disposition Is patient prescribed a controlled substance at d/c from ED?: No Time of Disposition: 23:09 <Samantha Bernardo - Last Filed: 04/26/20 23:05> <Hyacinth Chau - Last Filed: 04/29/20 15:49> Clinical Impression: Intractable nausea and vomiting Disposition: ADMITTED IP TO THIS HOSP Condition: Stable
[2020-04-26] MEDS ORDERED: NALOXONE 0.4 MG/ML 1 ML VIAL IV PRN (23:16)
[2020-04-26] MEDS ORDERED: KETOROLAC 30 MG/ML 1 ML VIAL IVP PRN (23:16)
[2020-04-26 23:37] LABS: Prothrombin Time 10.6 sec (9.0-12.0)
[2020-04-26 23:38] LABS: Partial Thromboplastin Time 20.2 sec (22.0-30.0)
[2020-04-26] MEDS: SODIUM CHLORIDE 0.9% 1,000 ML IV SCH (23:47)
[2020-04-27] MEDS: MORPHINE SULFATE 4 MG/ML SYRINGE IV PRN ×3 (02:48→14:42)
[2020-04-27] MEDS: ONDANSETRON 4 MG/2 ML VIAL IVP PRN ×2 (02:48→14:36)
[2020-04-27 03:03] LABS: Appearance,Urine Cloudy (Clear); Bilirubin,Urine Negative (Negative); Blood,Urine Moderate (Negative); Color,Urine Yellow; Glucose,Urine (UA) Trace (Negative); Ketones,Urine 2+ (Negative); Leukocyte Esterase,Urine Negative (Negative); Mucus,Urine Many /hpf; Nitrite,Urine Negative (Negative); Protein,Urine 1+ (Negative); RBC,Urine 6 /hpf (0-5); Specific Gravity,Urine 1.029 (1.001-1.035); Squamous Epithelial Cell,Urine 6 /hpf (0-4); Urobilinogen,Urine <2.0 mg/dL (<2.0); WBC,Urine 3 /hpf (0-5)
[2020-04-27] MEDS ORDERED: PANTOPRAZOLE 40 MG/10 ML VIAL IV SCH (09:00)
[2020-04-27] MEDS: SODIUM CHLORIDE 0.9% 1,000 ML IV SCH ×2 (09:35→14:39)
[2020-04-27 12:26] VITALS: BP 98/59; PULSE 64; RESP 18; TEMP 98
--- NOTE | 2020-04-27 14:29 | P.DS ---
Providers Date of admission: 04/26/20 23:25 Attending physician: Pattie Correa Primary care physician: Ramya Corcoran [facility] Course: Refer to my history of present illness for further details Patient Condition at Discharge: Stable Plan - Discharge Summary Discharge Rx Participant: Yes New Discharge Prescriptions: Continue Pantoprazole [Protonix] 40 mg PO DAILY #14 tablet. Ondansetron Odt [Zofran ODT] 8 mg PO TID PRN PRN Reason: Nausea Polyethylene Glycol 3350 [Miralax] 17 gm PO DAILY PRN PRN Reason: Constipation Discharge Medication List Pantoprazole [Protonix] 40 mg PO DAILY #14 tablet. 03/10/20 [Rx] Ondansetron Odt [Zofran ODT] 8 mg PO TID PRN 04/27/20 [History] Polyethylene Glycol 3350 [Miralax] 17 gm PO DAILY PRN 04/27/20 [History] Follow up Appointment(s)/Referral(s): Jewell Bui MD [Primary Care Provider] - 3 Days
--- NOTE | 2020-04-27 14:29 | P.HPIM ---
History of Present Illness 48-year-old female came in emergency department nausea vomiting multiple episodes patient had 2 visits every 4 she got admitted to the hospital. Patient was started on Protonix. Patient was diagnosed with the gastroparesis after 3 gastric emptying studies patient always has nausea vomiting during the menstrual periods every single month. Patient follows up with Dr. Flores and has a follow- up with Dr. Flores on Thursday. Patient denied any fever chills patient the doesn't have much abdominal pain at this time. Review of Systems REVIEW OF SYSTEMS: CONSTITUTIONAL: No fever, no malaise, no fatigue. HEENT: No recent visual problems or hearing problems. Denied any sore throat. CARDIOVASCULAR: No chest pain, orthopnea, PND, no palpitations, no syncope. PULMONARY: No shortness of breath, no cough, no hemoptysis. GASTROINTESTINAL: Mentioned in HPI NEUROLOGICAL: No headaches, no weakness, no numbness. HEMATOLOGICAL: Denies any bleeding or petechiae. GENITOURINARY: Denies any burning micturition, frequency, or urgency. MUSCULOSKELETAL/RHEUMATOLOGICAL: Denies any joint pain, swelling, or any muscle pain. ENDOCRINE: Denies any polyuria or polydipsia. The rest of the 14-point review of systems is negative. Past Medical History Past Medical History: GERD/Reflux, Hyperlipidemia, Renal Disease Additional Past Medical History / Comment(s): Gastroparesis, gastritis, esophageal tears, chronic low back pain, herniated lower discs, bilateral wrist tendonitis with R side worse, R shoulder pain past couple months, numbness to bilateral hand fingers when first wakes, migraines, instructed to sleep with HOB up 6 inches d/t heart rate dropping with sleep, vertigo, polynephritis, UTI. History of Any Multi-Drug Resistant Organisms: None Reported Past Surgical History: Appendectomy, Tubal Ligation Additional Past Surgical History / Comment(s): Botox injection "mouth" of stomach, EGDs, colonoscopy, vaginal cyst drained. Past Anesthesia/Blood Transfusion Reactions: No Reported Reaction Additional Past Anesthesia/Blood Transfusion Reaction / Comment(s): never had blood transfusion. Past Psychological History: Anxiety, Depression Additional Psychological History / Comment(s): Pt resides with spouse and children. She is independent. Smoking Status: Current every day smoker Past Alcohol Use History: None Reported Additional Past Alcohol Use History / Comment(s): Pt started smoking in 1993 and smokes between 1-1.5 ppd. Past Drug Use History: Marijuana Additional Drug Use History / Comment(s): patient states she smokes marijuana twice daily for chronic pain. - Past Family History Mother Family Medical History: Cancer Additional Family Medical History / Comment(s): Mother is living. She has had breast cancer and 2 back surgeries. Father Family Medical History: No Reported History Additional Family Medical History / Comment(s): Father had ETOH abuse and was manic depressive. He after a fall where he fractured his back then "drank" himself to . Brother(s) Family Medical History: Neurologic Disorder Sister(s) Family Medical History: No Reported History Son(s) Family Medical History: No Reported History Daughter(s) Family Medical History: No Reported History Medications and Allergies Home Medications Medication Instructions Recorded Confirmed Type Pantoprazole [Protonix] 40 mg PO DAILY #14 tablet. 03/10/20 04/27/20 Rx Ondansetron Odt [Zofran Odt] 8 mg PO TID PRN 04/27/20 04/27/20 History Polyethylene Glycol 3350 [Miralax] 17 gm PO DAILY PRN 04/27/20 04/27/20 History Allergies Allergy/AdvReac Type Severity Reaction Status Date / Time sulfamethoxazole Allergy Rash/Hives Verified 04/27/20 08:28 [From Bactrim] trimethoprim [From Bactrim] Allergy Rash/Hives Verified 04/27/20 08:28 Physical Exam Vitals: Vital Signs Temp Pulse Pulse Resp BP BP Pulse Ox 04/27/20 12:15 98.0 F 64 18 98/59 96 04/27/20 08:35 98.7 F 69 16 99/53 97 04/26/20 23:50 98.3 F 79 18 115/70 97 04/26/20 23:44 105/67 04/26/20 23:23 98.6 F 68 17 92/66 99 04/26/20 21:18 98.1 F 87 18 113/80 96 Intake and Output 04/26/20 04/27/20 04/27/20 22:59 06:59 14:59 Intake Total 900 Balance 900 Intake: Intake, IV Titration 600 Amount Sodium Chloride 0.9% 1, 600 000 ml @ 100 mls/hr IV . Q10H ALYSSA Rx#:[id number] Oral 300 Other: Weight 68.039 kg 64.1 kg PHYSICAL EXAMINATION: GENERAL: The patient is alert and oriented x3, not in any acute distress. Well developed, well nourished. HEENT: Pupils are round and equally reacting to light. EOMI. No scleral icterus. No conjunctival pallor. Normocephalic, atraumatic. No pharyngeal erythema. No thyromegaly. CARDIOVASCULAR: S1 and S2 present. No murmurs, rubs, or gallops. PULMONARY: Chest is clear to auscultation, no wheezing or crackles. ABDOMEN: Soft, nontender, nondistended, normoactive bowel sounds. No palpable organomegaly. MUSCULOSKELETAL: No joint swelling or deformity. EXTREMITIES: No cyanosis, clubbing, or pedal edema. NEUROLOGICAL: Gross neurological examination did not reveal any focal deficits. SKIN: No rashes. Results CBC & Chem 7: 04/26/20 21:48 04/26/20 21:48 Labs: Abnormal Lab Results - Last 24 Hours (Table) 04/26/20 04/26/20 04/26/20 Range/Units 21:48 21:48 23:11 MCV 102.0 H (80.0-100.0) fL Lymphocytes # 0.8 L (1.0-4.8) k/uL APTT 20.2 L (22.0-30.0) sec Chloride 109 H (98-107) mmol/L Carbon Dioxide 19 L (22-30) mmol/L Creatinine 0.51 L (0.52-1.04) mg/dL Glucose 154 H (74-99) mg/dL Total Protein 8.3 H (6.3-8.2) g/dL Lipase 15 L (23-300) U/L Urine Appearance (Clear) Urine Protein (Negative) Urine Glucose (UA) (Negative) Urine Ketones (Negative) Urine Blood (Negative) Urine RBC (0-5) /hpf Ur Squamous Epith Cells (0-4) /hpf Urine Mucus (None) /hpf 04/27/20 Range/Units 02:45 MCV (80.0-100.0) fL Lymphocytes # (1.0-4.8) k/uL APTT (22.0-30.0) sec Chloride (98-107) mmol/L Carbon Dioxide (22-30) mmol/L Creatinine (0.52-1.04) mg/dL Glucose (74-99) mg/dL Total Protein (6.3-8.2) g/dL Lipase (23-300) U/L Urine Appearance Cloudy H (Clear) Urine Protein 1+ H (Negative) Urine Glucose (UA) Trace H (Negative) Urine Ketones 2+ H (Negative) Urine Blood Moderate H (Negative) Urine RBC 6 H (0-5) /hpf Ur Squamous Epith Cells 6 H (0-4) /hpf Urine Mucus Many H (None) /hpf Thrombosis Risk Factor Assmnt - Choose All That Apply Any of the Below Risk Factors Present?: Yes Each Factor Represents 1 point: Age 41-60 years Other Risk Factors: No Other congenital or acquired thrombophilia - If yes, enter type in comment: No Thrombosis Risk Factor Assessment Total Risk Factor Score: 1 Thrombosis Risk Factor Assessment Level: Low Risk Assessment and Plan Plan: -Possible gastroparesis or cyclical vomiting syndrome: Patient is tolerating full liquid diet well and will address this up but she can tolerate patient will be discharged. Patient did not tolerate Reglan in the past she had side effects from this. -Gastroesophageal reflux disease -Hyperlipidemia -Depression
[2020-04-27 14:47] VITALS: BMI 22.1
== END 2020-04-27 18:39 | disposition home or self-care (01) ==
LOC: EC 21:00 → 6PED 23:25
PROVIDERS: ADMIT Internal Medicine; ATTEND Internal Medicine
DX: K31.84 Gastroparesis (principal); K21.9 Gastro-esophageal reflux disease without esophagitis; G43.A0 Cyclical vomiting, in migraine, not intractable; E78.5 Hyperlipidemia, unspecified; N28.9 Disorder of kidney and ureter, unspecified; G89.29 Other chronic pain; M54.5 Low back pain; M51.26 Other intervertebral disc displacement, lumbar region; M77.9 Enthesopathy, unspecified; G43.909 Migraine, unspecified, not intractable, without status migrainosus; Z87.440 Personal history of urinary (tract) infections; Z98.890 Other specified postprocedural states; F41.9 Anxiety disorder, unspecified; F32.9 Major depressive disorder, single episode, unspecified; F17.210 Nicotine dependence, cigarettes, uncomplicated; Z80.3 Family history of malignant neoplasm of breast; Z81.1 Family history of alcohol abuse and dependence; Z81.8 Family history of other mental and behavioral disorders; Z79.899 Other long term (current) drug therapy; Z88.2 Allergy status to sulfonamides
CPT/HCPCS: 96361 ×2; 96375 ×2; 96376; 96374; 99285; 36415; 80053; 82150; 83690; 85025; 85610; 85730; 81001; 74018; G0378 ×2; U0003; J2270 ×2; J1200; J2765; J2405; C9113

== ENCOUNTER 2020-05-11 10:00 | Day surgery (SDC) | payer MEDICARE ==
[2020-05-09 15:59] VITALS: BMI 21.6
[~2020-05-11 10:00] MED LIST: LACTATED RINGERS 1,000 ML IV SCH; ONABOTULINUMTOXINA 100 UNIT VIAL MISCELLANE ONE; Pre Op ABX Message 1 EACH MISC MISCELLANE ONE
[2020-05-11 10:52] VITALS: TEMP 97.7
[2020-05-11] MEDS: ONDANSETRON 4 MG/2 ML VIAL IVP ONE ×2 (11:43→11:53)
[2020-05-11] MEDS ORDERED: DEXAMETHASONE SOD PHOSPHATE 4 MG/ML 1 ML VIAL IVP ONE (11:53)
[2020-05-11] MEDS ORDERED: LIDOCAINE 1% INJ 10MG/ML (20 ML MDV) ONE (12:30)
[2020-05-11] MEDS ORDERED: PROPOFOL 10 MG/ML 20 ML VIAL IV ONE (12:30)
[2020-05-11] MEDS ORDERED: ONABOTULINUMTOXINA 100 UNIT VIAL MISCELLANE ONE (12:41)
--- NOTE | 2020-05-11 12:52 | P.PCN ---
Date of Procedure: 05/11/20 Procedure(s) Performed: BRIEF HISTORY: Patient is a 40-year-old, pleasant, white female scheduled for an upper endoscopy as a part of evaluation of idiopathic gastroparesis diagnosed several years ago. she had an EGD with Botox injection of the pylorus at [facility] in 2018 and did well for several months. She is scheduled for repeat EGD was in symptoms. PROCEDURE PERFORMED: Esophagogastroduodenoscopy with Botox injection of the pylorus. PREOPERATIVE DIAGNOSIS: Idiopathic gastroparesis with persistent nausea vomiting. IV sedation per anesthesia. PROCEDURE: After informed consent was obtained, the patient was brought into the endoscopy unit. IV sedation was administered by Anesthesia under continuous monitoring. Initially the Olympus GIF-140 video endoscope was inserted into the mouth. Esophagus intubated without any difficulty. It was gradually advanced into the stomach and duodenum and carefully examined. The bulb and the second part of the duodenum appeared normal. The scope at this time was withdrawn to the stomach, adequately insufflated with air, and upon careful examination, pylorus was was patent. At this time Botox was injected into the pyloric sphincter in 4 quadrants and total of 100 units was injected. Mucosa of the antrum, body, cardia and the fundus appeared normal. The scope was then withdrawn into the esophagus. The GE junction was located at 39 cm from the incisors. There was a circumferential erythema and erosions in the distal esophagus consistent with severe reflux esophagitis. Rest of the esophagus appeared normal and the patient tolerated the procedure well. IMPRESSION: 1. Patent pylorus status post Botox injection as described above. 2. Severe reflux esophagitis. RECOMMENDATIONS: The findings of this examination were discussed with the patient as well as her family. She will continue with antiemetics and Protonix 40 mg twice daily. She will follow up in office in 4 weeks.
[2020-05-11] MEDS ORDERED: FAMOTIDINE 20 MG/2 ML VIAL IV ONE (13:32)
[2020-05-11] MEDS ORDERED: KETOROLAC 30 MG/ML 1 ML VIAL IVP ONE (13:33)
[2020-05-11] MEDS ORDERED: MORPHINE SULFATE 4 MG/ML SYRINGE IV ONE (14:03)
[2020-05-11] MEDS ORDERED: METOCLOPRAMIDE 5 MG/ML 2 ML VIAL IVP ONE (14:12)
[2020-05-11 14:29] VITALS: BP 133/80; PULSE 66; RESP 20
[2020-05-11] MEDS ORDERED: MORPHINE SULFATE 4 MG/ML SYRINGE ONE (14:46)
== END 2020-05-11 15:34 | disposition home or self-care (01) ==
LOC: ORWHC2ENDO 10:00
PROVIDERS: ATTEND Internal Medicine Gastroenterology
DX: K31.84 Gastroparesis (principal); K21.0 Gastro-esophageal reflux disease with esophagitis; K22.10 Ulcer of esophagus without bleeding; K29.70 Gastritis, unspecified, without bleeding; F41.9 Anxiety disorder, unspecified; F32.9 Major depressive disorder, single episode, unspecified; G43.909 Migraine, unspecified, not intractable, without status migrainosus; F17.210 Nicotine dependence, cigarettes, uncomplicated; E78.5 Hyperlipidemia, unspecified; Z90.49 Acquired absence of other specified parts of digestive tract; Z88.2 Allergy status to sulfonamides; Z98.51 Tubal ligation status; Z79.899 Other long term (current) drug therapy
CPT/HCPCS: 43236; J2270; J1100; J2765; J2405; J2001; J0585; J1885; J2704; 43243

== ENCOUNTER 2020-06-03 21:35 | Observation (INO) | payer MEDICARE ==
[2020-06-03] MEDS ORDERED: SODIUM CHLORIDE 0.9% 1,000 ML IV STA (22:15)
[2020-06-03] MEDS ORDERED: ONDANSETRON 4 MG/2 ML VIAL IVP STA (22:15)
[2020-06-03] MEDS ORDERED: MORPHINE SULFATE 2 MG/ML SYRINGE IVP STA (22:15)
[2020-06-03] MEDS ORDERED: MAG HYDROX/AL HYDROX/SIMETH 30 ML, HYOSCYAMINE ELIXIR 10 ML, LIDOCAINE VISCOUS 2% 10 ML PO STA ×3 (22:16)
[2020-06-03] MEDS ORDERED: METOCLOPRAMIDE 5 MG/ML 2 ML VIAL IVP STA (22:20)
[2020-06-03] MEDS ORDERED: MORPHINE SULFATE 4 MG/ML SYRINGE IV STA (22:20)
[2020-06-03 22:41] LABS: Basophils % (A) 0 %; Eosinophils # (A) 0.2 k/uL (0-0.7); Eosinophils % (A) 2 %; HCT 44.2 % (34.0-46.0); HGB 15.1 gm/dL (11.4-16.0); Lymphocytes # (A) 2.6 k/uL (1.0-4.8); Lymphocytes % (A) 24 %; MCH 33.4 pg (25.0-35.0); MCHC 34.1 g/dL (31.0-37.0); MCV 97.9 fL (80.0-100.0); Monocytes # (A) 0.6 k/uL (0-1.0); Monocytes % (A) 5 %; Neutrophils # (A) 7.3 k/uL (1.3-7.7); Neutrophils % (A) 68 %; Platelet Count 400 k/uL (150-450); RBC 4.51 m/uL (3.80-5.40); RDW 12.3 % (11.5-15.5); WBC 10.9 k/uL (3.8-10.6)
[2020-06-03 22:58] LABS: ALT 11 U/L (4-34); AST 16 U/L (14-36); African American GFR (CKD) >90 (>60 ml/min/1.73 sqM); Albumin 5.2 g/dL (3.5-5.0); Alkaline Phosphatase 88 U/L (38-126); Anion Gap 15 mmol/L; Blood Urea Nitrogen 12 mg/dL (7-17); Calcium 10.6 mg/dL (8.4-10.2); Carbon Dioxide 20 mmol/L (22-30); Chloride 104 mmol/L (98-107); Glucose 121 mg/dL (74-99); Non-African American GFR(CKD) >90 (>60 ml/min/1.73 sqM); Potassium 3.8 mmol/L (3.5-5.1); Sodium 139 mmol/L (137-145); Total Bilirubin 0.8 mg/dL (0.2-1.3); Total Protein 8.3 g/dL (6.3-8.2)
--- NOTE | 2020-06-03 22:58 | XR ---
EXAMINATION TYPE: XR KUB DATE OF EXAM: 06/03/2020 COMPARISON: 04/26/2020 HISTORY: Right lower quadrant pain TECHNIQUE: 2 views upright FINDINGS: There is no sign of intestinal obstruction or pneumoperitoneum. Fecal pattern is normal. Th ere is no evidence of a mass. There are no pathologic calcifications over the kidneys. Lung bases are clear. IMPRESSION: Nonacute abdomen. No change.
[2020-06-03] MEDS ORDERED: HYDROmorphone 0.5 MG/0.5 ML SYRINGE IVP STA (23:38)
[2020-06-04 00:40] LABS: Appearance,Urine Turbid (Clear); Bilirubin,Urine 1+ (Negative); Blood,Urine Moderate (Negative); Color,Urine Yellow; Glucose,Urine (UA) Trace (Negative); Ketones,Urine 4+ (Negative); Leukocyte Esterase,Urine Negative (Negative); Mucus,Urine Many /hpf; Nitrite,Urine Negative (Negative); Protein,Urine 2+ (Negative); RBC,Urine 20 /hpf (0-5); Specific Gravity,Urine 1.036 (1.001-1.035); Squamous Epithelial Cell,Urine 65 /hpf (0-4); WBC,Urine 5 /hpf (0-5)
--- NOTE | 2020-06-04 00:42 | ED ---
General Adult HPI - General Chief complaint: Abdominal Pain Stated complaint: Abdominal pain, vomiting Time Seen by Provider: 06/03/20 21:49 Source: patient, RN notes reviewed, old records reviewed Mode of arrival: ambulatory Limitations: no limitations - History of Present Illness Initial comments: 40-year-old female patient past history gastroparesis previously for evaluation of abdominal pain, nausea vomiting. Patient reports that she has periumbilical pain which is radiating to her right side.. She reports that she got Botox shots on her abdomen for gastroparesis 3 days ago. Denies any fevers or chills. Denies a chance of being secondary tubal ligation. Denies any other complaints. Systemic: Pt denies fatigue, fever/chills, rash. Pt denies weakness, night sweats, weight loss. Neuro: Pt denies headache, visual disturbances, syncope or pre-syncope. HEENT: Pt denies ocular discharge or irritation, otalgia, rhinorrhea, pharyngit is or notable lymphadenopathy. Cardiopulmonary: Pt denies chest pain, SOB, heart palpitations, dyspnea on exertion. : Pt denies dysuria, burning w/ urination, frequency/urgency. Denies new onset urinary or bowel incontinence. MSK: Pt denies myalgia, loss of strength or function in extremities. Neuro: Pt denies new onset weakness, paresthesias. - Related Data Home Medications Medication Instructions Recorded Confirmed Ondansetron Odt [Zofran ODT] 8 mg PO TID PRN 04/27/20 05/09/20 Polyethylene Glycol 3350 [Miralax] 17 gm PO DAILY PRN 04/27/20 05/11/20 Previous Rx's Medication Instructions Recorded Pantoprazole [Protonix] 40 mg PO DAILY #14 tablet. 03/10/20 Allergies Allergy/AdvReac Type Severity Reaction Status Date / Time sulfamethoxazole Allergy Rash/Hives Verified 06/03/20 21:49 [From Bactrim] trimethoprim [From Bactrim] Allergy Rash/Hives Verified 06/03/20 21:49 Review of Systems ROS Statement: Those systems with pertinent positive or pertinent negative responses have been documented in the HPI. ROS Other: All systems not noted in ROS Statement are negative. Past Medical History Past Medical History: GERD/Reflux, Hyperlipidemia, Renal Disease Additional Past Medical History / Comment(s): Gastroparesis, gastritis, esophageal tears, chronic low back pain, herniated lower discs, bilateral wrist tendonitis with R side worse, R shoulder pain past couple months, numbness to bilateral hand fingers when first wakes, migraines, instructed to sleep with HOB up 6 inches d/t heart rate dropping with sleep, vertigo, polynephritis, History of Any Multi-Drug Resistant Organisms: None Reported Past Surgical History: Appendectomy, Tubal Ligation Additional Past Surgical History / Comment(s): Botox injection "mouth" of stomach-R/T SPASMS , EGDs, colonoscopy, vaginal cyst drained. Past Anesthesia/Blood Transfusion Reactions: No Reported Reaction Additional Past Anesthesia/Blood Transfusion Reaction / Comment(s): never had blood transfusion. Past Psychological History: Anxiety, Depression Smoking Status: Current every day smoker - Past Family History Mother Family Medical History: Cancer Additional Family Medical History / Comment(s): Mother is living. She has had breast cancer and 2 back surgeries. Father Family Medical History: No Reported History Additional Family Medical History / Comment(s): Father had ETOH abuse and was manic depressive. He after a fall where he fractured his back then "drank" himself to . Brother(s) Family Medical History: Neurologic Disorder Sister(s) Family Medical History: No Reported History Son(s) Family Medical History: No Reported History Daughter(s) Family Medical History: No Reported History General Exam - General Exam Comments Initial Comments: Constitutional: NAD, AOX3, Pt has pleasant affect. HEENT: NC/AT, trachea midline, neck supple, no lymphadenopathy. Posterior pharynx non erythematous, without exudates. External ears appear normal, without discharge. Mucous membranes moist. Eyes PERRLA, EOM intact. There is no scleral icterus. No pallor noted. Cardiopulmonary: RRR, no murmurs, rubs or gallops, no JVD noted. Lungs CTAB in anterior and posterior du. No peripheral edema. Abdominal exam: Abdomen soft and non-distended. Abdomen moderately tender to palpation periumbilical region. Bowel sounds active in LLQ. No h epatosplenomegaly. No ecchymosis Neuro: CN II-XII grossly intact. No nuchal rigidity. No raccon eyes, no cota sign, no hemotympanum. No cervical spinal tenderness. MSK: Full active ROM in upper and lower extremities, 5/5 stregnth. Limitations: no limitations Course Vital Signs 06/03/20 06/03/20 06/03/20 21:46 22:35 22:40 Temperature 98.3 F Pulse Rate 65 Respiratory 18 Rate Blood Pressure 124/85 129/87 129/87 O2 Sat by Pulse 96 Oximetry 06/03/20 06/03/20 06/03/20 23:00 23:20 23:40 Temperature Pulse Rate Respiratory Rate Blood Pressure 134/99 117/76 122/81 O2 Sat by Pulse Oximetry Medical Decision Making - Medical Decision Making 40-year-old female patient past history gastroparesis previously for evaluation of abdominal pain, nausea vomiting. Patient reports that she has periumbilical pain which is radiating to her right side.. She reports that she got Botox shots on her abdomen for gastroparesis 3 days ago. Denies any fevers or chills. Denies a chance of being secondary tubal ligation. Denies any other complaints. Patient vital signs are stable, afebrile. Physical exam displayed mild amount of periumbilical tenderness. Laboratory investigations revealed mild leukocytosis. UA does displayed +2 protein, plus 4 ketones. Shared decision making her patient. Patient does believe that this pain is worse than her normal gastroparesis therefore a CT abdomen and pelvis was ordered. This does not display any acute process. Patient discomfort nausea vomiting is intractable. Patient will be admitted for observation. Case discussed with Dr. Corea. - Lab Data Result diagrams: 06/03/20 22:22 06/03/20 22:22 Lab Results 06/03/20 06/03/20 06/03/20 Range/Units 22:22 22:22 22:22 WBC 10.9 H (3.8-10.6) k/uL RBC 4.51 (3.80-5.40) m/uL Hgb 15.1 (11.4-16.0) gm/dL Hct 44.2 (34.0-46.0) % MCV 97.9 (80.0-100.0) fL MCH 33.4 (25.0-35.0) pg MCHC 34.1 (31.0-37.0) g/dL RDW 12.3 (11.5-15.5) % Plt Count 400 (150-450) k/uL Neutrophils % 68 % Lymphocytes % 24 % Monocytes % 5 % Eosinophils % 2 % Basophils % 0 % Neutrophils # 7.3 (1.3-7.7) k/uL Lymphocytes # 2.6 (1.0-4.8) k/uL Monocytes # 0.6 (0-1.0) k/uL Eosinophils # 0.2 (0-0.7) k/uL Basophils # 0.0 (0-0.2) k/uL Sodium 139 (137-145) mmol/L Potassium 3.8 (3.5-5.1) mmol/L Chloride 104 (98-107) mmol/L Carbon Dioxide 20 L (22-30) mmol/L Anion Gap 15 mmol/L BUN 12 (7-17) mg/dL Creatinine 0.68 (0.52-1.04) mg/dL Est GFR (CKD-EPI)AfAm >90 (>60 ml/min/1.73 sqM) Est GFR (CKD-EPI)NonAf >90 (>60 ml/min/1.73 sqM) Glucose 121 H (74-99) mg/dL Plasma Lactic Acid Jose 1.5 (0.7-2.0) mmol/L Calcium 10.6 H (8.4-10.2) mg/dL Total Bilirubin 0.8 (0.2-1.3) mg/dL AST 16 (14-36) U/L ALT 11 (4-34) U/L Alkaline Phosphatase 88 (38-126) U/L Total Protein 8.3 H (6.3-8.2) g/dL Albumin 5.2 H (3.5-5.0) g/dL Lipase 69 (23-300) U/L Urine Color Urine Appearance (Clear) Urine pH (5.0-8.0) Ur Specific Ava (1.001-1.035) Urine Protein (Negative) Urine Glucose (UA) (Negative) Urine Ketones (Negative) Urine Blood (Negative) Urine Nitrite (Negative) Urine Bilirubin (Negative) Urine Urobilinogen (<2.0) mg/dL Ur Leukocyte Esterase (Negative) Urine RBC (0-5) /hpf Urine WBC (0-5) /hpf Ur Squamous Epith Cells (0-4) /hpf Urine Mucus (None) /hpf Urine HCG, Qual (Not Detectd) 06/04/20 06/04/20 Range/Units 00:16 00:16 WBC (3.8-10.6) k/uL RBC (3.80-5.40) m/uL Hgb (11.4-16.0) gm/dL Hct (34.0-46.0) % MCV (80.0-100.0) fL MCH (25.0-35.0) pg MCHC (31.0-37.0) g/dL RDW (11.5-15.5) % Plt Count (150-450) k/uL Neutrophils % % Lymphocytes % % Monocytes % % Eosinophils % % Basophils % % Neutrophils # (1.3-7.7) k/uL Lymphocytes # (1.0-4.8) k/uL Monocytes # (0-1.0) k/uL Eosinophils # (0-0.7) k/uL Basophils # (0-0.2) k/uL Sodium (137-145) mmol/L Potassium (3.5-5.1) mmol/L Chloride (98-107) mmol/L Carbon Dioxide (22-30) mmol/L Anion Gap mmol/L BUN (7-17) mg/dL Creatinine (0.52-1.04) mg/dL Est GFR (CKD-EPI)AfAm (>60 ml/min/1.73 sqM) Est GFR (CKD-EPI)NonAf (>60 ml/min/1.73 sqM) Glucose (74-99) mg/dL Plasma Lactic Acid Jose (0.7-2.0) mmol/L Calcium (8.4-10.2) mg/dL Total Bilirubin (0.2-1.3) mg/dL AST (14-36) U/L ALT (4-34) U/L Alkaline Phosphatase (38-126) U/L Total Protein (6.3-8.2) g/dL Albumin (3.5-5.0) g/dL Lipase (23-300) U/L Urine Color Yellow Urine Appearance Turbid H (Clear) Urine pH 6.0 (5.0-8.0) Ur Specific Ava 1.036 H (1.001-1.035) Urine Protein 2+ H (Negative) Urine Glucose (UA) Trace H (Negative) Urine Ketones 4+ H (Negative) Urine Blood Moderate H (Negative) Urine Nitrite Negative (Negative) Urine Bilirubin 1+ H (Negative) Urine Urobilinogen 4.0 (<2.0) mg/dL Ur Leukocyte Esterase Negative (Negative) Urine RBC 20 H (0-5) /hpf Urine WBC 5 (0-5) /hpf Ur Squamous Epith Cells 65 H (0-4) /hpf Urine Mucus Many H (None) /hpf Urine HCG, Qual Not Detected (Not Detectd) Disposition Clinical Impression: Nausea and vomiting, Abdominal pain Disposition: ADMITTED IP TO THIS HOSP Condition: Fair Is patient prescribed a controlled substance at d/c from ED?: No Referrals: Jewell Bui MD [Primary Care Provider] - 1-2 days
--- NOTE | 2020-06-04 01:16 | CT ---
EXAMINATION TYPE: CT abdomen pelvis w con DATE OF EXAM: 06/04/2020 COMPARISON: 10/12/2019 HISTORY: RUQ pain CT DLP: 707.3 mGycm Automated exposure control for dose reduction was used. CONTRAST: Performed with IV Contrast, patient injected with 100 mL of Isovue 300. Lung bases are clear. There is no pleural effusion. Heart size is normal. There is no pericardial eff usion. Liver spleen pancreas stomach gallbladder appear normal. Bile ducts are not dilated. There is no adrenal mass. Kidneys have normal size and contour. There is satisfactory contrast opacif ication. There is no hydronephrosis. Ureters are not dilated. There is no retroperitoneal adenopathy. There is no inguinal hernia. Bladder is empty. There is retroverted uterus. There is no evidence of pelvic mass. There is no free fluid in the pelvis. There is no mesenteric edema. There is no ascites or free air. There is no sign of a bowel obstructio n. Appendix is not seen. There is no sign of thickened appendix. There is narrowing at L5-S1 disc space with vacuum disc. There is no lumbar compression fracture. Sujata tebra have normal alignment. Bony pelvis appears intact. IMPRESSION: Negative CT scan abdomen and pelvis. No adverse change compared to old exam. I do not see a cause for right upper quadrant pain.
[2020-06-04] MEDS ORDERED: SODIUM CHLORIDE 0.9% 500 ML 500 ML IV ONE (01:27)
[2020-06-04] MEDS ORDERED: NALOXONE 0.4 MG/ML 1 ML VIAL IV PRN (02:30)
[2020-06-04] MEDS ORDERED: ONDANSETRON 4 MG/2 ML VIAL IVP STA (02:30)
[2020-06-04] MEDS ORDERED: MORPHINE SULFATE 4 MG/ML SYRINGE IV PRN (02:30)
[2020-06-04] MEDS: SODIUM CHLORIDE 0.9% 1,000 ML IV SCH ×3 (03:13→21:27)
[2020-06-04] MEDS: HYDROmorphone 0.5 MG/0.5 ML SYRINGE IVP PRN ×3 (04:16→21:27)
[2020-06-04] MEDS ORDERED: PROMETHAZINE INJ 25 MG/ML 1 ML VIAL IM PRN (06:00)
[2020-06-04] MEDS ORDERED: HYDROmorphone 0.5 MG/0.5 ML SYRINGE IVP PRN (06:00)
[2020-06-04] MEDS ORDERED: PANTOPRAZOLE 40 MG/10 ML VIAL IVP SCH (09:00)
[2020-06-04] MEDS ORDERED: PROMETHAZINE 25 MG TAB PO PRN (09:29)
[2020-06-04] MEDS: ONDANSETRON 4 MG/2 ML VIAL IVP PRN ×2 (10:42→23:47)
[2020-06-04 11:23] VITALS: BMI 21.1
[2020-06-04] MEDS: PANTOPRAZOLE 40 MG/10 ML VIAL IVP SCH (21:27)
--- NOTE | 2020-06-05 00:32 | P.HPIM ---
History of Present Illness H&P Date: 06/04/20 Chief Complaint: N/V Patient is a 40-year-old female with a past medical history of GERD, hyperlipidemia, gastroparesis, chronic back pain and recurrent nausea vomiting and also previous history of marijuana came to ER with the complaints of abdominal pain mainly mid and epigastric region is worse with intractable nausea and vomiting. Vomiting is mainly bilious. No complaints of fever or chills. No diarrhea. No cough or sputum production. Patient states that she got Botox injections on her abdominal for gastroparesis 3 days ago. KUB x-ray showed no acute abdomen. No acute change. CT of the abdomen pelvis negative CT abdomen and pelvis. No adverse change compared to old exam. Laboratory data showed WBC 10.9, hemoglobin 15.1 and platelets 400 Sodium 139, potassium 3.8 and bicarb 20 BUN 15 and creatinine 0.68 Lactic acid 1.5 Calcium 10.6 Urinalysis showed turbid nitrite negative, leukocyte esterase negative and 65 squamous epithelial cells and 5 WBCs. Coronavirus PCR negative. Patient has been afebrile and blood pressure is 97/73 saturating well on room air. Review of Systems Constitutional: Patient denies any fever or chills . No generalized weakness or weight loss. Abdomen: Patient does have intractable abdominal pain and nausea vomiting and no diarrhea.. Cardiovascular: Patient denies any chest pain or short of breath no palpitations. Respiratory: patient denied any cough is from production. No shortness of breath Neurologic: Patient denied any numbness or tingling headache. Musculoskeletal: Patient denies any complaints of joint swelling or deformity. Skin: Negative Psychiatric: Negative Endocrine: No heat or cold intolerance. No recent weight gain. Genitourinary: No dysuria or hematuria. All other 14 point ROS negative except the above Past Medical History Past Medical History: GERD/Reflux, Hyperlipidemia, Renal Disease Additional Past Medical History / Comment(s): Gastroparesis, gastritis, esophageal tears, chronic low back pain, herniated lower discs, bilateral wrist tendonitis with R side worse, R shoulder pain past couple months, numbness to bilateral hand fingers when first wakes, migraines, instructed to sleep with HOB up 6 inches d/t heart rate dropping with sleep, vertigo, pyelonephritis, History of Any Multi-Drug Resistant Organisms: None Reported Past Surgical History: Appendectomy, Tubal Ligation Additional Past Surgical History / Comment(s): Botox injection "mouth" of stomach-R/T SPASMS , EGDs, colonoscopy, vaginal cyst drained. Past Anesthesia/Blood Transfusion Reactions: No Reported Reaction Additional Past Anesthesia/Blood Transfusion Reaction / Comment(s): never had blood transfusion. Past Psychological History: Anxiety, Depression Additional Psychological History / Comment(s): Pt resides with spouse and children. She is independent. Smoking Status: Current every day smoker Past Alcohol Use History: None Reported Additional Past Alcohol Use History / Comment(s): Pt started smoking in 1993 and smokes between 1-1.5 ppd. Past Drug Use History: Marijuana Additional Drug Use History / Comment(s): patient states she smoked marijuana but quit on 05-26-2020. - Past Family History Mother Family Medical History: Cancer Additional Family Medical History / Comment(s): Mother is living. She has had breast cancer and 2 back surgeries. Father Family Medical History: No Reported History Additional Family Medical History / Comment(s): Father had ETOH abuse and was manic depressive. He after a fall where he fractured his back then "drank" himself to . Brother(s) Family Medical History: Neurologic Disorder Sister(s) Family Medical History: No Reported History Son(s) Family Medical History: No Reported History Daughter(s) Family Medical History: No Reported History Medications and Allergies Home Medications Medication Instructions Recorded Confirmed Type Pantoprazole [Protonix] 40 mg PO DAILY #14 tablet. 03/10/20 06/04/20 Rx Ondansetron Odt [Zofran ODT] 8 mg PO Q8H PRN 04/27/20 06/04/20 History Allergies Allergy/AdvReac Type Severity Reaction Status Date / Time sulfamethoxazole Allergy Rash/Hives Verified 06/04/20 08:00 [From Bactrim] trimethoprim [From Bactrim] Allergy Rash/Hives Verified 06/04/20 08:00 Physical Exam Vitals: Vital Signs Temp Pulse Pulse Resp BP BP Pulse Ox 06/04/20 08:47 97.9 F 56 L 16 95/51 98 06/04/20 03:29 98.4 F 71 20 155/96 96 06/04/20 03:14 97.6 F 83 19 137/42 97 06/03/20 23:40 122/81 07/12/20 23:20 117/76 06/03/20 23:00 134/99 06/03/20 22:40 129/87 06/03/20 22:35 129/87 06/03/20 21:46 98.3 F 65 18 124/85 96 Intake and Output 06/03/20 06/04/20 06/04/20 22:59 06:59 14:59 Intake Total 300 Balance 300 Intake: Intake, IV Titration 300 Amount Sodium Chloride 0.9% 1, 300 000 ml @ 100 mls/hr IV . Q10H [facility] Rx#:[id number] Other: # Voids 1 Weight 61.235 kg 61.1 kg 61.1 kg PHYSICAL EXAMINATION: Patient is lying in the bed comfortably, no acute distress, awake alert and oriented.. HEENT: Normocephalic. Neck is supple. Pupils reactive. Nostrils clear. Oral cavity is moist. Ears reveal no drainage. Neck reveals no JVD, carotid bruits, or thyromegaly. CHEST EXAMINATION: Trachea is central. Symmetrical expansion. Lung du clear to auscultation and percussion. CARDIAC: Normal S1, S2 with no gallops. No murmurs ABDOMEN: Soft. Mild epigastric tenderness. Bowel sounds normal. No organomegaly. No abdominal bruits. Extremities: reveal no edema. No clubbing or cyanosis Neurologically awake, alert, oriented x3 with well-coordinated movements. No focal deficits noted Skin: No rash or skin lesions. Psychiatric: Coperative. Nonsuicidal Musculoskeletal: No joint swelling or deformity. Normal range of motion. Results CBC & Chem 7: 06/03/20 22:22 06/03/20 22:22 Labs: Abnormal Lab Results - Last 24 Hours (Table) 06/03/20 06/03/20 06/04/20 Range/Units 22:22 22:22 00:16 WBC 10.9 H (3.8-10.6) k/uL Carbon Dioxide 20 L (22-30) mmol/L Glucose 121 H (74-99) mg/dL Calcium 10.6 H (8.4-10.2) mg/dL Total Protein 8.3 H (6.3-8.2) g/dL Albumin 5.2 H (3.5-5.0) g/dL Urine Appearance Turbid H (Clear) Ur Specific [place] 1.036 H (1.001-1.035) Urine Protein 2+ H (Negative) Urine Glucose (UA) Trace H (Negative) Urine Ketones 4+ H (Negative) Urine Blood Moderate H (Negative) Urine Bilirubin 1+ H (Negative) Urine RBC 20 H (0-5) /hpf Ur Squamous Epith Cells 65 H (0-4) /hpf Urine Mucus Many H (None) /hpf Thrombosis Risk Factor Assmnt - DVT/VTE Prophylaxis DVT/VTE Prophylaxis: Pharmacologic Prophylaxis ordered - Choose All That Apply Any of the Below Risk Factors Present?: Yes Each Factor Represents 1 point: Age 41-60 years Other Risk Factors: No Other congenital or acquired thrombophilia - If yes, enter type in comment: No Thrombosis Risk Factor Assessment Total Risk Factor Score: 1 Thrombosis Risk Factor Assessment Level: Low Risk Assessment and Plan Assessment: Intractable nausea vomiting and abdominal pain likely due to gastroparesis. Possible acute gastritis Prior history of nausea vomiting and abdominal pain History of Botox injections on the abdomen 3 days ago Mild hypercalcemia secondary to dehydration Ongoing nicotine addiction GERD Hyperlipidemia Chronic low back pain Bilateral wrist tendinitis Anxiety/depression history of marijuana quit on 05/26/2020 as per patient. DVT prophylaxis with heparin subcu Plan: Patient will be continued on IV hydration and pain management and symptomatic management for nausea and vomiting. Continue with IV PPI. Patient will be started on liquid diet and will be advanced as tolerated. Gastroenterology was consulted. Follow-up closely and further recommendations based on clinical course. Patient was extensively counseled for marijuana use and smoking cessation.
[2020-06-05] MEDS: SODIUM CHLORIDE 0.9% 1,000 ML IV SCH (05:14)
[2020-06-05] MEDS: HYDROmorphone 0.5 MG/0.5 ML SYRINGE IVP PRN ×2 (05:15→14:58)
[2020-06-05 05:30] LABS: African American GFR (CKD) >90 (>60 ml/min/1.73 sqM); Anion Gap 4 mmol/L; Basophils % (A) 1 %; Blood Urea Nitrogen 10 mg/dL (7-17); Calcium 8.4 mg/dL (8.4-10.2); Carbon Dioxide 22 mmol/L (22-30); Chloride 108 mmol/L (98-107); Eosinophils # (A) 0.2 k/uL (0-0.7); Eosinophils % (A) 3 %; Glucose 86 mg/dL (74-99); HCT 31.5 % (34.0-46.0); Lymphocytes # (A) 3.4 k/uL (1.0-4.8); Lymphocytes % (A) 53 %; MCHC 33.7 g/dL (31.0-37.0); MCV 100.8 fL (80.0-100.0); Mean Platelet Volume 7.8; Monocytes # (A) 0.3 k/uL (0-1.0); Monocytes % (A) 5 %; Neutrophils # (A) 2.3 k/uL (1.3-7.7); Neutrophils % (A) 37 %; Non-African American GFR(CKD) >90 (>60 ml/min/1.73 sqM); Platelet Count 254 k/uL (150-450); Potassium 3.6 mmol/L (3.5-5.1); RBC 3.13 m/uL (3.80-5.40); RDW 12.4 % (11.5-15.5); Sodium 134 mmol/L (137-145); WBC 6.3 k/uL (3.8-10.6)
[2020-06-05 06:06] LABS: HGB 10.6 gm/dL (11.4-16.0)
[2020-06-05] MEDS: PANTOPRAZOLE 40 MG/10 ML VIAL IVP SCH (08:16)
[2020-06-05] MEDS: ONDANSETRON 4 MG/2 ML VIAL IVP PRN (08:20)
--- NOTE | 2020-06-05 09:03 | P.CONS ---
History of Present Illness - Reason for Consult Consult date: 06/04/20 Nausea and vomiting, reported gastroparesis Requesting physician: Pattie Correa - Chief Complaint Nausea and vomiting - History of Present Illness 40-year-old female with a medical history significant for GERD, hyperlipidemia, chronic back pain and a reported history of gastroparesis who presented to the hospital with complaints of abdominal pain, nausea and vomiting. She reports abdominal pain in the epigastric region of the abdomen, with associated nausea and vomiting. She reports a history of gastroparesis which is been going on for years. She feels that this is triggered after a viral illness. She recently underwent EGD with Botox injection on 05/11/2020 with findings of reflux esophagitis at that time. Imaging on current presentation including a computed tomography scan of the abdomen and a KUB x-ray were both negative. Laboratory evaluation significant for WBC 10.9, hemoglobin 15.1, platelet count 400,000, total bilirubin 0.8, alkaline phosphatase 88, AST 16 and ALT 11. Review of Systems REVIEW OF SYSTEMS: CONSTITUTIONAL: Denies any fevers, chills, weight change or fatigue. CARDIOVASCULAR: Denies any chest pain, palpitations high or low blood pressures RESPIRATORY: Denies any shortness of breath, hemoptysis or cough. GENITOURINARY: No dysuria or hematuria. MUSCULOSKELETAL: No weakness reported. SKIN: Denies any new rashes or lesions, jaundice or pallor. PSYCHIATRIC: Denies any depression or anxiety. NEUROLOGY: Denies headache, denies any new focal deficits. EARS/NOSE/THROAT: No recent hearing change, congestion, nasal discharge or sore throat. EYES: No pain in eyes, discharge or change in vision. GASTROINTESTINAL: As per HPI. Past Medical History Past Medical History: GERD/Reflux, Hyperlipidemia, Renal Disease Additional Past Medical History / Comment(s): Gastroparesis, gastritis, esophageal tears, chronic low back pain, herniated lower discs, bilateral wrist tendonitis with R side worse, R shoulder pain past couple months, numbness to bilateral hand fingers when first wakes, migraines, instructed to sleep with HOB up 6 inches d/t heart rate dropping with sleep, vertigo, pyelonephritis, History of Any Multi-Drug Resistant Organisms: None Reported Past Surgical History: Appendectomy, Tubal Ligation Additional Past Surgical History / Comment(s): Botox injection "mouth" of stomach-R/T SPASMS , EGDs, colonoscopy, vaginal cyst drained. Past Anesthesia/Blood Transfusion Reactions: No Reported Reaction Additional Past Anesthesia/Blood Transfusion Reaction / Comm: never had blood transfusion. Past Psychological History: Anxiety, Depression Additional Psychological History / Comment(s): Pt resides with spouse and children. She is independent. Smoking Status: Current every day smoker Past Alcohol Use History: None Reported Additional Past Alcohol Use History / Comment(s): Pt started smoking in 1993 and smokes between 1-1.5 ppd. Past Drug Use History: Marijuana Additional Drug Use History / Comment(s): patient states she smoked marijuana but quit on 05-26-2020. - Past Family History Mother Family Medical History: Cancer Additional Family Medical History / Comment(s): Mother is living. She has had breast cancer and 2 back surgeries. Father Family Medical History: No Reported History Additional Family Medical History / Comment(s): Father had ETOH abuse and was manic depressive. He after a fall where he fractured his back then "drank" himself to . Brother(s) Family Medical History: Neurologic Disorder Sister(s) Family Medical History: No Reported History Son(s) Family Medical History: No Reported History Daughter(s) Family Medical History: No Reported History Medications and Allergies Home Medications Medication Instructions Recorded Confirmed Type Pantoprazole [Protonix] 40 mg PO DAILY #14 tablet. 03/10/20 06/04/20 Rx Ondansetron Odt [Zofran ODT] 8 mg PO Q8H PRN 04/27/20 06/04/20 History Allergies Allergy/AdvReac Type Severity Reaction Status Date / Time sulfamethoxazole Allergy Rash/Hives Verified 06/04/20 08:00 [From Bactrim] trimethoprim [From Bactrim] Allergy Rash/Hives Verified 06/04/20 08:00 Physical Exam Vitals: Vital Signs Temp Pulse Pulse Resp BP BP Pulse Ox 06/04/20 08:47 97.9 F 56 L 16 95/51 98 06/04/20 03:29 98.4 F 71 20 155/96 96 06/04/20 03:14 97.6 F 83 19 137/42 97 06/03/20 23:40 122/81 06/03/20 23:20 117/76 06/03/20 23:00 134/99 06/03/20 22:40 129/87 06/03/20 22:35 129/87 06/03/20 21:46 98.3 F 65 18 124/85 96 Intake and Output 06/04/20 06/04/20 06/04/20 06:59 14:59 22:59 Intake Total 300 800 Balance 300 800 Intake: Intake, IV Titration 300 800 Amount Sodium Chloride 0.9% 1, 300 800 000 ml @ 100 mls/hr IV . Q10H [facility] Rx#:[id number] Other: # Voids 1 Weight 61.1 kg 61.1 kg On physical examination, patient appears comfortable in no apparent distress. HEAD: Normocephalic, atraumatic. EYES: No scleral icterus. No conjunctival injection. MOUTH: No lesions, tongue midline. NECK: Trachea midline, no gross abnormalities. CHEST: Clear to auscultation with no wheezing or rhonchi appreciated. HEART: Regular rate and rhythm. ABDOMEN: Soft, nontender to palpation. Bowel sounds are positive. No organomegaly. No guarding or rigidity. EXTREMITIES: No pedal edema. SKIN: No rashes, no jaundice. NEUROLOGIC: Alert and oriented x3. No focal deficits. Results CBC & Chem 7: 06/05/20 05:01 06/05/20 05:01 Labs: Abnormal Lab Results - Last 24 Hours (Table) 06/03/20 06/03/20 06/04/20 Range/Units 22:22 22:22 00:16 WBC 10.9 H (3.8-10.6) k/uL Carbon Dioxide 20 L (22-30) mmol/L Glucose 121 H (74-99) mg/dL Calcium 10.6 H (8.4-10.2) mg/dL Total Protein 8.3 H (6.3-8.2) g/dL Albumin 5.2 H (3.5-5.0) g/dL Urine Appearance Turbid H (Clear) Ur Specific [place] 1.036 H (1.001-1.035) Urine Protein 2+ H (Negative) Urine Glucose (UA) Trace H (Negative) Urine Ketones 4+ H (Negative) Urine Blood Moderate H (Negative) Urine Bilirubin 1+ H (Negative) Urine RBC 20 H (0-5) /hpf Ur Squamous Epith Cells 65 H (0-4) /hpf Urine Mucus Many H (None) /hpf CT scan - abdomen: report reviewed (Computed tomography scan of the abdomen negative intra-abdominal process) Assessment and Plan (1) Nausea and vomiting Narrative/Plan: 40-year-old female with a known history of gastroparesis who recently underwent EGD with Botox injection on 05/11/2020 as well as findings of reflux esophagitis at that time presented with abdominal pain and nausea and vomiting. Extensive imaging studies including computed tomography scan of the abdomen and KUB x-ray negative for any intra-abdominal process. Laboratory evaluation negative. Currently patient receiving symptomatic treatment with some improvement in her symptoms. Current Visit: Yes Status: Acute Code(s): R11.2 - NAUSEA WITH VOMITING, UNSPECIFIED SNOMED Code(s): 88852673 (2) Abdominal pain Current Visit: Yes Status: Acute Code(s): R10.9 - UNSPECIFIED ABDOMINAL PAIN SNOMED Code(s): 89367725 (3) Gastroparesis Current Visit: No Status: Acute Code(s): K31.84 - GASTROPARESIS SNOMED Code(s): 537919007 Plan: Supportive care Okay for liquid diet as tolerated Continue Zofran 4 nausea control Phenergan added as needed for nausea Protonix increased to 40 mg twice daily Continue to monitor her symptomatically No plans for endoscopic evaluation at this time Thank you for allowing us to participate in the care of the patient
[2020-06-05 13:53] VITALS: BP 102/71; PULSE 53; TEMP 98.2
[2020-06-05 15:02] VITALS: RESP 18
[2020-06-05 15:04] LABS: Basophils % (A) 1 %; Eosinophils # (A) 0.1 k/uL (0-0.7); Eosinophils % (A) 2 %; HCT 34.5 % (34.0-46.0); HGB 11.1 gm/dL (11.4-16.0); Lymphocytes # (A) 2.3 k/uL (1.0-4.8); Lymphocytes % (A) 38 %; MCHC 32.2 g/dL (31.0-37.0); MCV 99.2 fL (80.0-100.0); Mean Platelet Volume 7.9; Monocytes # (A) 0.3 k/uL (0-1.0); Monocytes % (A) 4 %; Neutrophils # (A) 3.4 k/uL (1.3-7.7); Neutrophils % (A) 55 %; Platelet Count 264 k/uL (150-450); RBC 3.48 m/uL (3.80-5.40); RDW 12.3 % (11.5-15.5); WBC 6.2 k/uL (3.8-10.6)
== END 2020-06-05 16:40 | disposition home or self-care (01) ==
LOC: EC 21:35 → 6PED 06-04 02:30
PROVIDERS: ADMIT Hospitalist; ATTEND Hospitalist
DX: R11.2 Nausea with vomiting, unspecified (principal); R10.33 Periumbilical pain; R10.13 Epigastric pain; K31.84 Gastroparesis; E83.52 Hypercalcemia; E86.0 Dehydration; F17.210 Nicotine dependence, cigarettes, uncomplicated; K21.9 Gastro-esophageal reflux disease without esophagitis; E78.5 Hyperlipidemia, unspecified; G89.29 Other chronic pain; M54.5 Low back pain; F41.9 Anxiety disorder, unspecified; F32.9 Major depressive disorder, single episode, unspecified; M51.9 Unspecified thoracic, thoracolumbar and lumbosacral intervertebral disc disorder; R20.0 Anesthesia of skin; G43.909 Migraine, unspecified, not intractable, without status migrainosus; Z03.818 Encounter for observation for suspected exposure to other biological agents ruled out; Z98.51 Tubal ligation status; Z79.899 Other long term (current) drug therapy; Z88.2 Allergy status to sulfonamides; Z87.448 Personal history of other diseases of urinary system; Z87.19 Personal history of other diseases of the digestive system; Z87.39 Personal history of other diseases of the musculoskeletal system and connective tissue; Z90.49 Acquired absence of other specified parts of digestive tract; Z98.890 Other specified postprocedural states; Z80.3 Family history of malignant neoplasm of breast; Z81.1 Family history of alcohol abuse and dependence; Z81.8 Family history of other mental and behavioral disorders; Z82.0 Family history of epilepsy and other diseases of the nervous system
CPT/HCPCS: 96372; 96375 ×3; 96376 ×3; 96361 ×2; 96374; 99285; 36415; 80053; 80048; 83605; 83690; 85025 ×2; 81001; 81025; 74018; 74177; G0378 ×2; U0003; J2270 ×2; J2550; J2765; J2405 ×2; C9113 ×2; J1170 ×3; Q9967

== ENCOUNTER 2020-06-25 15:56 | Emergency (ER) | payer MEDICARE ==
[2020-06-25] MEDS ORDERED: SODIUM CHLORIDE 0.9% 1,000 ML IV STA (16:26)
[2020-06-25] MEDS ORDERED: PANTOPRAZOLE 40 MG/10 ML VIAL IVP STA (16:53)
[2020-06-25] MEDS ORDERED: ONDANSETRON 4 MG/2 ML VIAL IVP STA (16:53)
--- NOTE | 2020-06-25 16:58 | ED ---
Abdominal Pain HPI - General Chief Complaint: Abdominal Pain Stated Complaint: abd pain Time Seen by Provider: 06/25/20 16:10 Source: patient Mode of arrival: ambulatory Limitations: no limitations - History of Present Illness Initial Comments: Patient is a 40 year old female past history of gastroparesis who presents emergency room with reported nausea, vomiting for the past 3 days. Patient reports her symptoms are in correlation with her ventral cycle. She just finished first. She also Dr. Flores and Dr. Bui as this is a chronic issue for her. Patient has Zofran at home to take for nausea. Also has Botox injections, last of which was in April. Patient reports that since her last Botox injection she has had chronic pain and nausea. She has been unable to come any food. Reports an epigastric abdominal pain. Denies hematemesis. Denies hematochezia, melenic stools. Reports to constipation. No fevers or chills. No sick contacts with similar symptoms. No recent travel. Patient's was scheduled to have an appointment with Dr. Montenegro in office on the however reports she missed her appointment because she did not have a vehicle. Denies concern for . No abnormal vaginal bleeding or discharge. No other alleviating, P erceptin or modifying factors - Related Data Home Medications Medication Instructions Recorded Confirmed Ondansetron Odt [Zofran ODT] 8 mg PO Q8H PRN 04/27/20 06/04/20 Previous Rx's Medication Instructions Recorded Pantoprazole [Protonix] 40 mg PO DAILY #14 tablet. 03/10/20 Prochlorperazine [Compazine] 10 mg PO Q8H PRN #15 tab 06/25/20 Allergies Allergy/AdvReac Type Severity Reaction Status Date / Time sulfamethoxazole Allergy Rash/Hives Verified 06/25/20 16:07 [From Bactrim] trimethoprim [From Bactrim] Allergy Rash/Hives Verified 06/25/20 16:07 Review of Systems ROS Statement: Those systems with pertinent positive or pertinent negative responses have been documented in the HPI. ROS Other: All systems not noted in ROS Statement are negative. Past Medical History Past Medical History: GERD/Reflux, Hyperlipidemia, Renal Disease Additional Past Medical History / Comment(s): Gastroparesis, gastritis, esophageal tears, chronic low back pain, herniated lower discs, bilateral wrist tendonitis with R side worse, R shoulder pain past couple months, numbness to bilateral hand fingers when first wakes, migraines, instructed to sleep with HOB up 6 inches d/t heart rate dropping with sleep, vertigo, pyelonephritis, History of Any Multi-Drug Resistant Organisms: None Reported Past Surgical History: Appendectomy, Tubal Ligation Additional Past Surgical History / Comment(s): Botox injection "mouth" of stomach-R/T SPASMS , EGDs, colonoscopy, vaginal cyst drained. Past Anesthesia/Blood Transfusion Reactions: No Reported Reaction Additional Past Anesthesia/Blood Transfusion Reaction / Comment(s): never had blood transfusion. Past Psychological History: Anxiety, Depression Past Alcohol Use History: None Reported Past Drug Use History: Marijuana - Past Family History Mother Family Medical History: Cancer Additional Family Medical History / Comment(s): Mother is living. She has had breast cancer and 2 back surgeries. Father Family Medical History: No Reported History Additional Family Medical History / Comment(s): Father had ETOH abuse and was manic depressive. He after a fall where he fractured his back then "drank" himself to . Brother(s) Family Medical History: Neurologic Disorder Sister(s) Family Medical History: No Reported History Son(s) Family Medical History: No Reported History Daughter(s) Family Medical History: No Reported History General Exam Limitations: no limitations Course Vital Signs 06/25/20 06/25/20 06/25/20 16:06 17:04 18:25 Temperature 98.1 F 97.5 F L Pulse Rate 95 75 75 Respiratory 16 18 18 Rate Blood Pressure 108/81 110/81 105/59 O2 Sat by Pulse 97 98 96 Oximetry 06/25/20 18:51 Temperature 98.7 F Pulse Rate 69 Respiratory 18 Rate Blood Pressure 107/68 O2 Sat by Pulse 97 Oximetry Medical Decision Making - Medical Decision Making Upon arrival patient's placed into room 17. A thorough history and physical exam was performed. Peripheral IV is established and the patient is given a liter bolus of normal saline. She was also given 40 mg of Protonix 4 mg of Zofran. Laboratory studies are conducted. The patient does request for pain control. She was given 4 of morphine. Lab studies are reviewed and urine is remarkable for 20 red blood cells, 4+ ketones, 13 skims epithelial cells. The results are discussed with the patient. She states she feels improved at this time however would like another dose of pain medications prior to going home. She states that the Zofran helped however does not seem to help at home. I did discuss treatment with Compazine for which the patient was open 2. She'll be given a dose prior to leaving. The patient needs to follow-up with Dr. Montenegro in regards to her symptoms. Return to the emergency room for any new or worsening symptoms or patient was in agreement treatment plan she is discharged home in stable condition - Lab Data Result diagrams: 06/25/20 16:32 06/25/20 16:32 Lab Results 06/25/20 06/25/20 06/25/20 Range/Units 16:32 16:32 16:32 WBC 10.3 (3.8-10.6) k/uL RBC 4.48 (3.80-5.40) m/uL Hgb 14.4 D (11.4-16.0) gm/dL Hct 44.1 (34.0-46.0) % MCV 98.5 (80.0-100.0) fL MCH 32.2 (25.0-35.0) pg MCHC 32.7 (31.0-37.0) g/dL RDW 12.4 (11.5-15.5) % Plt Count 395 (150-450) k/uL Neutrophils % 63 % Lymphocytes % 28 % Monocytes % 5 % Eosinophils % 1 % Basophils % 1 % Neutrophils # 6.5 (1.3-7.7) k/uL Lymphocytes # 2.9 (1.0-4.8) k/uL Monocytes # 0.5 (0-1.0) k/uL Eosinophils # 0.1 (0-0.7) k/uL Basophils # 0.1 (0-0.2) k/uL Sodium 138 (137-145) mmol/L Potassium 4.4 (3.5-5.1) mmol/L Chloride 105 (98-107) mmol/L Carbon Dioxide 22 (22-30) mmol/L Anion Gap 11 mmol/L BUN 10 (7-17) mg/dL Creatinine 0.61 (0.52-1.04) mg/dL Est GFR (CKD-EPI)AfAm >90 (>60 ml/min/1.73 sqM) Est GFR (CKD-EPI)NonAf >90 (>60 ml/min/1.73 sqM) Glucose 97 (74-99) mg/dL Plasma Lactic Acid Jose 0.9 (0.7-2.0) mmol/L Calcium 10.5 H (8.4-10.2) mg/dL Total Bilirubin 0.8 (0.2-1.3) mg/dL AST 20 (14-36) U/L ALT 10 (4-34) U/L Alkaline Phosphatase 77 (38-126) U/L Total Protein 8.4 H (6.3-8.2) g/dL Albumin 5.1 H (3.5-5.0) g/dL Lipase 110 (23-300) U/L Urine Color Urine Appearance (Clear) Urine pH (5.0-8.0) Ur Specific [place] (1.001-1.035) Urine Protein (Negative) Urine Glucose (UA) (Negative) Urine Ketones (Negative) Urine Blood (Negative) Urine Nitrite (Negative) Urine Bilirubin (Negative) Urine Urobilinogen (<2.0) mg/dL Ur Leukocyte Esterase (Negative) Urine RBC (0-5) /hpf Urine WBC (0-5) /hpf Ur Squamous Epith Cells (0-4) /hpf Urine Mucus (None) /hpf 06/25/20 Range/Units 16:38 WBC (3.8-10.6) k/uL RBC (3.80-5.40) m/uL Hgb (11.4-16.0) gm/dL Hct (34.0-46.0) % MCV (80.0-100.0) fL MCH (25.0-35.0) pg MCHC (31.0-37.0) g/dL RDW (11.5-15.5) % Plt Count (150-450) k/uL Neutrophils % % Lymphocytes % % Monocytes % % Eosinophils % % Basophils % % Neutrophils # (1.3-7.7) k/uL Lymphocytes # (1.0-4.8) k/uL Monocytes # (0-1.0) k/uL Eosinophils # (0-0.7) k/uL Basophils # (0-0.2) k/uL Sodium (137-145) mmol/L Potassium (3.5-5.1) mmol/L Chloride (98-107) mmol/L Carbon Dioxide (22-30) mmol/L Anion Gap mmol/L BUN (7-17) mg/dL Creatinine (0.52-1.04) mg/dL Est GFR (CKD-EPI)AfAm (>60 ml/min/1.73 sqM) Est GFR (CKD-EPI)NonAf (>60 ml/min/1.73 sqM) Glucose (74-99) mg/dL Plasma Lactic Acid Jose (0.7-2.0) mmol/L Calcium (8.4-10.2) mg/dL Total Bilirubin (0.2-1.3) mg/dL AST (14-36) U/L ALT (4-34) U/L Alkaline Phosphatase (38-126) U/L Total Protein (6.3-8.2) g/dL Albumin (3.5-5.0) g/dL Lipase (23-300) U/L Urine Color Yellow Urine Appearance Cloudy H (Clear) Urine pH 6.0 (5.0-8.0) Ur Specific [place] 1.030 (1.001-1.035) Urine Protein 1+ H (Negative) Urine Glucose (UA) Negative (Negative) Urine Ketones 4+ H (Negative) Urine Blood Moderate H (Negative) Urine Nitrite Negative (Negative) Urine Bilirubin 1+ H (Negative) Urine Urobilinogen 4.0 (<2.0) mg/dL Ur Leukocyte Esterase Trace H (Negative) Urine RBC 28 H (0-5) /hpf Urine WBC 2 (0-5) /hpf Ur Squamous Epith Cells 13 H (0-4) /hpf Urine Mucus Many H (None) /hpf - EKG Data EKG Comments: Normal sinus rhythm with a ventricular rate of 73. [place] interval 138. QRS 34. 427. No acute ST segment elevations or depressions concerning for ischemic changes Disposition Clinical Impression: Abdominal pain, Gastroparesis, Nausea and vomiting Disposition: HOME SELF-CARE Condition: Stable Instructions (If sedation given, give patient instructions): Acute Nausea and Vomiting (ED) Additional Instructions: Please follow up with Dr. Flores in regards to your symptoms. Return to the ER for any new or worsening symptoms Prescriptions: Prochlorperazine [Compazine] 10 mg PO Q8H PRN #15 tab PRN Reason: Vomiting Is patient prescribed a controlled substance at d/c from ED?: No Referrals: Jewell Bui MD [Primary Care Provider] - 1-2 days Lavonne Flores MD [STAFF PHYSICIAN] - 1-2 days Time of Disposition: 18:40
[2020-06-25 17:03] LABS: Basophils # (A) 0.1 k/uL (0-0.2); Basophils % (A) 1 %; Eosinophils # (A) 0.1 k/uL (0-0.7); Eosinophils % (A) 1 %; HCT 44.1 % (34.0-46.0); Lymphocytes # (A) 2.9 k/uL (1.0-4.8); Lymphocytes % (A) 28 %; MCH 32.2 pg (25.0-35.0); MCHC 32.7 g/dL (31.0-37.0); MCV 98.5 fL (80.0-100.0); Mean Platelet Volume 7.5; Monocytes # (A) 0.5 k/uL (0-1.0); Monocytes % (A) 5 %; Neutrophils # (A) 6.5 k/uL (1.3-7.7); Neutrophils % (A) 63 %; Platelet Count 395 k/uL (150-450); RBC 4.48 m/uL (3.80-5.40); RDW 12.4 % (11.5-15.5); WBC 10.3 k/uL (3.8-10.6)
[2020-06-25 17:06] VITALS: RESP 18
[2020-06-25 17:12] LABS: ALT 10 U/L (4-34); AST 20 U/L (14-36); African American GFR (CKD) >90 (>60 ml/min/1.73 sqM); Albumin 5.1 g/dL (3.5-5.0); Alkaline Phosphatase 77 U/L (38-126); Anion Gap 11 mmol/L; Blood Urea Nitrogen 10 mg/dL (7-17); Calcium 10.5 mg/dL (8.4-10.2); Carbon Dioxide 22 mmol/L (22-30); Chloride 105 mmol/L (98-107); Glucose 97 mg/dL (74-99); Non-African American GFR(CKD) >90 (>60 ml/min/1.73 sqM); Potassium 4.4 mmol/L (3.5-5.1); Sodium 138 mmol/L (137-145); Total Bilirubin 0.8 mg/dL (0.2-1.3); Total Protein 8.4 g/dL (6.3-8.2)
[2020-06-25 17:13] LABS: HGB 14.4 gm/dL (11.4-16.0)
[2020-06-25] MEDS ORDERED: MORPHINE SULFATE 4 MG/ML SYRINGE IVP STA ×2 (17:19→18:38)
[2020-06-25 17:32] LABS: Appearance,Urine Cloudy (Clear); Bilirubin,Urine 1+ (Negative); Blood,Urine Moderate (Negative); Color,Urine Yellow; Glucose,Urine (UA) Negative (Negative); Ketones,Urine 4+ (Negative); Leukocyte Esterase,Urine Trace (Negative); Mucus,Urine Many /hpf; Nitrite,Urine Negative (Negative); Protein,Urine 1+ (Negative); RBC,Urine 28 /hpf (0-5); Squamous Epithelial Cell,Urine 13 /hpf (0-4); WBC,Urine 2 /hpf (0-5)
[2020-06-25] MEDS ORDERED: PROCHLORPERAZINE 5 MG TAB PO STA (18:38)
[2020-06-25 18:51] VITALS: BP 107/68; PULSE 69; TEMP 98.7
== END 2020-06-25 18:53 | disposition home or self-care (01) ==
LOC: EC 15:56
DX: K31.84 Gastroparesis (principal); K21.9 Gastro-esophageal reflux disease without esophagitis; Z88.2 Allergy status to sulfonamides
CPT/HCPCS: 36415; 93005; 80053; 83605; 83690; 85025; 81001; 99284; 96374; 96375 ×2; 96376; 96361; S0183; J2270; J2405; C9113

== ENCOUNTER 2020-06-27 09:55 | Observation (INO) | payer MEDICARE ==
--- NOTE | 2020-06-27 10:22 | ED ---
Abdominal Pain HPI - General Chief Complaint: Abdominal Pain Stated Complaint: recheck - abd pain Time Seen by Provider: 06/27/20 10:08 Source: patient Mode of arrival: wheelchair Limitations: no limitations - History of Present Illness Initial Comments: Patient is a 40-year-old female history gastric paresis presenting to emergency Department with a chief complaint abdominal pain nausea vomiting. Patient reports she was in emergency department 2 days ago and felt good after discharge until the end of the day. Patient reports yesterday she woke up with the exact same symptoms of epigastric abdominal pain along with multiple episodes of nonbilious, nonbloody vomiting. Patient reports she continues to be nauseous. States she takes Zofran at home but is not able to keep it down. Patient reports this is secondary to her gastroparesis. Patient reports she is to see Dr. Flores but has not scheduled appointment yet. Denies any chest pain back pain. Denies night sweats or chills. - Related Data Home Medications Medication Instructions Recorded Confirmed Ondansetron Odt [Zofran ODT] 8 mg PO Q8H PRN 04/27/20 06/27/20 Previous Rx's Medication Instructions Recorded Pantoprazole [Protonix] 40 mg PO DAILY #14 tablet. 03/10/20 Prochlorperazine [Compazine] 10 mg PO Q8H PRN #15 tab 06/25/20 Allergies Allergy/AdvReac Type Severity Reaction Status Date / Time sulfamethoxazole Allergy Rash/Hives Verified 06/27/20 11:13 [From Bactrim] trimethoprim [From Bactrim] Allergy Rash/Hives Verified 06/27/20 11:13 Review of Systems ROS Statement: Those systems with pertinent positive or pertinent negative responses have been documented in the HPI. ROS Other: All systems not noted in ROS Statement are negative. Past Medical History Past Medical History: GERD/Reflux, Hyperlipidemia, Renal Disease Additional Past Medical History / Comment(s): Gastroparesis, gastritis, esophageal tears, chronic low back pain, herniated lower discs, bilateral wrist tendonitis with R side worse, R shoulder pain past couple months, numbness to bilateral hand fingers when first wakes, migraines, instructed to sleep with HOB up 6 inches d/t heart rate dropping with sleep, vertigo, pyelonephritis, History of Any Multi-Drug Resistant Organisms: None Reported Past Surgical History: Appendectomy, Tubal Ligation Additional Past Surgical History / Comment(s): Botox injection "mouth" of stomach-R/T SPASMS , EGDs, colonoscopy, vaginal cyst drained. Past Anesthesia/Blood Transfusion Reactions: No Reported Reaction Additional Past Anesthesia/Blood Transfusion Reaction / Comment(s): never had blood transfusion. Past Psychological History: Anxiety, Depression Smoking Status: Current every day smoker Past Alcohol Use History: None Reported Past Drug Use History: Marijuana - Past Family History Mother Family Medical History: Cancer Additional Family Medical History / Comment(s): Mother is living. She has had breast cancer and 2 back surgeries. Father Family Medical History: No Reported History Additional Family Medical History / Comment(s): Father had ETOH abuse and was manic depressive. He after a fall where he fractured his back then "drank" himself to . Brother(s) Family Medical History: Neurologic Disorder Sister(s) Family Medical History: No Reported History Son(s) Family Medical History: No Reported History Daughter(s) Family Medical History: No Reported History General Exam Limitations: no limitations General appearance: alert, in no apparent distress Head exam: Present: atraumatic, normocephalic, normal inspection Eye exam: Present: normal appearance, PERRL, EOMI Pupils: Present: normal accommodation ENT exam: Present: normal exam, normal oropharynx, mucous membranes dry, TM's normal bilaterally, normal external ear exam Neck exam: Present: normal inspection, full ROM. Absent: tenderness Respiratory exam: Present: normal lung sounds bilaterally. Absent: respiratory distress, wheezes, rales Cardiovascular Exam: Present: regular rate, normal rhythm, normal heart sounds GI/Abdominal exam: Present: soft, tenderness (Epigastric abdominal tenderness). Absent: distended, guarding, rebound, rigid Extremities exam: Present: normal inspection, full ROM, normal capillary refill. Absent: tenderness Back exam: Present: normal inspection, full ROM. Absent: tenderness Neurological exam: Present: alert, oriented X3 Psychiatric exam: Present: normal affect, normal mood Skin exam: Present: warm, dry, intact, normal color Course Vital Signs 06/27/20 06/27/20 06/27/20 10:03 11:46 12:41 Temperature 98.0 F 98.0 F Pulse Rate 99 76 81 Respiratory 18 18 20 Rate Blood Pressure 110/73 132/81 126/72 O2 Sat by Pulse 95 96 96 Oximetry 06/27/20 13:17 Temperature 98.2 F Pulse Rate Respiratory Rate Blood Pressure O2 Sat by Pulse Oximetry Medical Decision Making - Medical Decision Making Patient is a 40-year-old female with history of gastroparesis presenting to emergency Department with chief complaint nausea vomiting abdominal pain. Patient is followed to emergency department for frequent visits. On exam patient has epigastric abdominal pain. She continues to be nauseous and vomiting in the emergency department. Patient was given IV fluids, Zofran and analgesia. Reevaluation patient reports no improvement in the nausea. Patient was given Reglan Benadryl along with Dilaudid. CBC is remarkable. CMP reveals decreased creatinine levels. UA reveals plus for ketones. Patient appears dehydrated. Patient will be admitted for further medical management. Case discussed with Admitting physician is Dr Valentine - Lab Data Result diagrams: 06/27/20 11:04 06/27/20 12:14 Lab Results 06/27/20 06/27/20 06/27/20 Range/Units 11:04 11:23 11:23 WBC 10.6 (3.8-10.6) k/uL RBC 4.35 (3.80-5.40) m/uL Hgb 13.9 (11.4-16.0) gm/dL Hct 42.7 (34.0-46.0) % MCV 98.2 (80.0-100.0) fL MCH 31.9 (25.0-35.0) pg MCHC 32.5 (31.0-37.0) g/dL RDW 12.2 (11.5-15.5) % Plt Count 374 (150-450) k/uL Neutrophils % 72 % Lymphocytes % 20 % Monocytes % 5 % Eosinophils % 1 % Basophils % 1 % Neutrophils # 7.6 (1.3-7.7) k/uL Lymphocytes # 2.1 (1.0-4.8) k/uL Monocytes # 0.5 (0-1.0) k/uL Eosinophils # 0.1 (0-0.7) k/uL Basophils # 0.1 (0-0.2) k/uL Sodium (137-145) mmol/L Potassium (3.5-5.1) mmol/L Chloride (98-107) mmol/L Carbon Dioxide (22-30) mmol/L Anion Gap mmol/L BUN (7-17) mg/dL Creatinine (0.52-1.04) mg/dL Est GFR (CKD-EPI)AfAm (>60 ml/min/1.73 sqM) Est GFR (CKD-EPI)NonAf (>60 ml/min/1.73 sqM) Glucose (74-99) mg/dL Calcium (8.4-10.2) mg/dL Total Bilirubin (0.2-1.3) mg/dL AST (14-36) U/L ALT (4-34) U/L Alkaline Phosphatase (38-126) U/L Total Protein (6.3-8.2) g/dL Albumin (3.5-5.0) g/dL Amylase (30-110) U/L Lipase (23-300) U/L Urine Color Yellow Urine Appearance Cloudy H (Clear) Urine pH 6.0 (5.0-8.0) Ur Specific [place] 1.028 (1.001-1.035) Urine Protein 1+ H (Negative) Urine Glucose (UA) Negative (Negative) Urine Ketones 4+ H (Negative) Urine Blood Small H (Negative) Urine Nitrite Negative (Negative) Urine Bilirubin Negative (Negative) Urine Urobilinogen 2.0 (<2.0) mg/dL Ur Leukocyte Esterase Negative (Negative) Urine RBC 19 H (0-5) /hpf Urine WBC 3 (0-5) /hpf Ur Squamous Epith Cells 29 H (0-4) /hpf Urine Bacteria Few H (None) /hpf Hyaline Casts 28 H (0-2) /lpf Urine Mucus Many H (None) /hpf Urine HCG, Qual Not Detected (Not Detectd) Acetone, Qual (Negative) 06/27/20 06/27/20 Range/Units 12:14 12:14 WBC (3.8-10.6) k/uL RBC (3.80-5.40) m/uL Hgb (11.4-16.0) gm/dL Hct (34.0-46.0) % MCV (80.0-100.0) fL MCH (25.0-35.0) pg MCHC (31.0-37.0) g/dL RDW (11.5-15.5) % Plt Count (150-450) k/uL Neutrophils % % Lymphocytes % % Monocytes % % Eosinophils % % Basophils % % Neutrophils # (1.3-7.7) k/uL Lymphocytes # (1.0-4.8) k/uL Monocytes # (0-1.0) k/uL Eosinophils # (0-0.7) k/uL Basophils # (0-0.2) k/uL Sodium 137 (137-145) mmol/L Potassium 4.4 (3.5-5.1) mmol/L Chloride 110 H (98-107) mmol/L Carbon Dioxide 19 L (22-30) mmol/L Anion Gap 8 mmol/L BUN 9 (7-17) mg/dL Creatinine 0.49 L (0.52-1.04) mg/dL Est GFR (CKD-EPI)AfAm >90 (>60 ml/min/1.73 sqM) Est GFR (CKD-EPI)NonAf >90 (>60 ml/min/1.73 sqM) Glucose 97 (74-99) mg/dL Calcium 8.7 (8.4-10.2) mg/dL Total Bilirubin 0.7 (0.2-1.3) mg/dL AST 18 (14-36) U/L ALT 8 (4-34) U/L Alkaline Phosphatase 56 (38-126) U/L Total Protein 6.6 (6.3-8.2) g/dL Albumin 4.0 (3.5-5.0) g/dL Amylase 50 (30-110) U/L Lipase 30 (23-300) U/L Urine Color Urine Appearance (Clear) Urine pH (5.0-8.0) Ur Specific [place] (1.001-1.035) Urine Protein (Negative) Urine Glucose (UA) (Negative) Urine Ketones (Negative) Urine Blood (Negative) Urine Nitrite (Negative) Urine Bilirubin (Negative) Urine Urobilinogen (<2.0) mg/dL Ur Leukocyte Esterase (Negative) Urine RBC (0-5) /hpf Urine WBC (0-5) /hpf Ur Squamous Epith Cells (0-4) /hpf Urine Bacteria (None) /hpf Hyaline Casts (0-2) /lpf Urine Mucus (None) /hpf Urine HCG, Qual (Not Detectd) Acetone, Qual Positive (Negative) Disposition Clinical Impression: Intractable nausea and vomiting, Dehydration Disposition: ADMITTED IP TO THIS HOSP Condition: Fair Is patient prescribed a controlled substance at d/c from ED?: No Time of Disposition: 12:48
[2020-06-27] MEDS ORDERED: SODIUM CHLORIDE 0.9% 1,000 ML IV STA (10:23)
[2020-06-27] MEDS ORDERED: ONDANSETRON 4 MG/2 ML VIAL IVP STA (10:23)
[2020-06-27] MEDS ORDERED: MORPHINE SULFATE 4 MG/ML SYRINGE IV STA (10:23)
[2020-06-27] MEDS ORDERED: SODIUM CHLORIDE 0.9% 800 ML IV STA (10:39)
[2020-06-27 11:18] LABS: Basophils # (A) 0.1 k/uL (0-0.2); Basophils % (A) 1 %; Eosinophils # (A) 0.1 k/uL (0-0.7); Eosinophils % (A) 1 %; HCT 42.7 % (34.0-46.0); HGB 13.9 gm/dL (11.4-16.0); Lymphocytes # (A) 2.1 k/uL (1.0-4.8); Lymphocytes % (A) 20 %; MCH 31.9 pg (25.0-35.0); MCHC 32.5 g/dL (31.0-37.0); MCV 98.2 fL (80.0-100.0); Mean Platelet Volume 7.6; Monocytes # (A) 0.5 k/uL (0-1.0); Monocytes % (A) 5 %; Neutrophils # (A) 7.6 k/uL (1.3-7.7); Neutrophils % (A) 72 %; Platelet Count 374 k/uL (150-450); RBC 4.35 m/uL (3.80-5.40); RDW 12.2 % (11.5-15.5); WBC 10.6 k/uL (3.8-10.6)
[2020-06-27] MEDS ORDERED: diphenhydrAMINE 50 MG/ML 1 ML VIAL IVP STA (11:55)
[2020-06-27] MEDS ORDERED: HYDROmorphone 0.5 MG/0.5 ML SYRINGE IVP STA (11:55)
[2020-06-27] MEDS ORDERED: METOCLOPRAMIDE 5 MG/ML 2 ML VIAL IVP STA (11:55)
[2020-06-27 12:13] LABS: Appearance,Urine Cloudy (Clear); Bacteria,Urine Few /hpf; Bilirubin,Urine Negative (Negative); Blood,Urine Small (Negative); Color,Urine Yellow; Glucose,Urine (UA) Negative (Negative); Hyaline Casts,Urine 28 /lpf (0-2); Ketones,Urine 4+ (Negative); Leukocyte Esterase,Urine Negative (Negative); Mucus,Urine Many /hpf; Nitrite,Urine Negative (Negative); Protein,Urine 1+ (Negative); RBC,Urine 19 /hpf (0-5); Specific Gravity,Urine 1.028 (1.001-1.035); Squamous Epithelial Cell,Urine 29 /hpf (0-4); WBC,Urine 3 /hpf (0-5)
[2020-06-27 12:35] LABS: ALT 8 U/L (4-34); AST 18 U/L (14-36); African American GFR (CKD) >90 (>60 ml/min/1.73 sqM); Alkaline Phosphatase 56 U/L (38-126); Amylase 50 U/L (30-110); Anion Gap 8 mmol/L; Blood Urea Nitrogen 9 mg/dL (7-17); Calcium 8.7 mg/dL (8.4-10.2); Carbon Dioxide 19 mmol/L (22-30); Chloride 110 mmol/L (98-107); Glucose 97 mg/dL (74-99); Lipase 30 U/L (23-300); Non-African American GFR(CKD) >90 (>60 ml/min/1.73 sqM); Potassium 4.4 mmol/L (3.5-5.1); Sodium 137 mmol/L (137-145); Total Bilirubin 0.7 mg/dL (0.2-1.3); Total Protein 6.6 g/dL (6.3-8.2)
[2020-06-27] MEDS ORDERED: LORazepam 2 MG/ML INJ IV PRN (12:42)
[2020-06-27] MEDS ORDERED: NALOXONE 0.4 MG/ML 1 ML VIAL IV PRN (12:42)
[2020-06-27] MEDS ORDERED: ACETAMINOPHEN TAB 325 MG TAB PO PRN (12:42)
[2020-06-27] MEDS ORDERED: SODIUM CHLORIDE 0.9% 1,000 ML IV SCH (12:45)
[2020-06-27] MEDS ORDERED: HYDROcodone/APAP 5-325MG 1 EACH TAB PO PRN (14:17)
[2020-06-27] MEDS ORDERED: TEMAZEPAM 15 MG CAP PO PRN (14:17)
[2020-06-27] MEDS: HEPARIN SODIUM,PORCINE 5,000 UNIT/ML 1 ML VIAL SQ SCH ×2 (14:34→20:12)
[2020-06-27] MEDS: HYDROmorphone 0.5 MG/0.5 ML SYRINGE IVP PRN ×3 (14:54→22:36)
[2020-06-27] MEDS: D5-0.9% NACL WITH KCL 40 MEQ/L 1,000 ML IV SCH (14:58)
--- NOTE | 2020-06-27 15:54 | XR ---
EXAMINATION TYPE: XR chest 1V portable DATE OF EXAM: 06/27/2020 CLINICAL HISTORY: Pneumonia. Intractable nausea and vomiting. TECHNIQUE: Upright portable frontal view of the chest obtained. COMPARISON: None FINDINGS: The cardiomediastinal silhouette is within normal limits for size. Pulmonary vasculature i s normal. There is no focal air space opacity, pleural effusion, or pneumothorax seen. The osseous st ructures are intact. IMPRESSION: No acute cardiopulmonary process.
--- NOTE | 2020-06-27 17:33 | HP ---
HISTORY AND PHYSICAL DATE OF SERVICE: 06/27/2020 CHIEF COMPLAINT: Nausea, vomiting and diarrhea. HISTORY OF PRESENT ILLNESS: This 40-year-old woman with a past medical history of multiple medical problems, including history of GERD, hypertension, history of renal disease, gastroparesis, esophageal tears, appendectomy , is being followed by Dr. Bui in the outpatient setting. Patient was seen by Gastroenterology in [facility] for gastroparesis and has received Botox injections, repeated recently, locally, but without much effect on her. The patient is complaining of incessant nausea and vomiting for the past several days. The patient is unable to keep anything down. Patient has chills. Patient had elevated ketones in the urine. She also has some metabolic acidosis. There is no history of any fever, rigor or chills. No history of headache, loss of consciousness, seizures at this time. PAST MEDICAL HISTORY: History of GERD, hypertension, hyperlipidemia, history of gastroparesis, anxiety, depression. MEDICATIONS: 1. Compazine 10 mg q.8 p.r.n. 2. Protonix 40 mg daily. 3. Zofran 8 mg q.8 p.r.n. ALLERGIES: BACTRIM. FAMILY HISTORY: History of cancer. SOCIAL HISTORY: History of THC, history of smoking. REVIEW OF SYSTEMS: ENT: No diminished hearing. No diminished vision. CARDIOVASCULAR SYSTEM: As mentioned earlier. RESPIRATORY SYSTEM: As mentioned earlier. GI: No nausea, vomiting. : No dysuria or retention. NERVOUS SYSTEM: No numbness, weakness. ALLERGY/IMMUNOLOGY: No asthma, hayfever. MUSCULOSKELETAL: As mentioned earlier. HEMATOLOGY/ONCOLOGY: No history of anemia. ENDOCRINE: No history of diabetes, hypothyroidism. CONSTITUTIONAL: As mentioned earlier. DERMATOLOGY: Negative. RHEUMATOLOGY: Negative. PSYCHIATRY: As mentioned earlier. GASTROENTEROLOGY: As mentioned earlier. PHYSICAL EXAMINATION: Alert and oriented x3. Pulse 81, blood pressure 126/72, respiration 20, temperature 98 degrees, pulse ox 96% on room air. HEENT: Conjunctivae normal. Oral mucosa moist. NECK: No jugular venous distention. No carotid bruit. No lymph node enlargement. CARDIOVASCULAR SYSTEM: S1, S2 muffled. RESPIRATORY SYSTEM: Breath sounds diminished at the bases. No rhonchi. No crackles. ABDOMEN: Soft. Mild diffuse discomfort. No guarding. No rigidity. No rebound tenderness. No distention. Bowel sounds present. No ascites. LEGS: No edema. No swelling. NERVOUS SYSTEM: Higher functions as mentioned earlier. Moves all 4 limbs. No focal motor or sensory deficit. LYMPHATICS: No lymph node palpable in neck, axillae or groin. SKIN: No ulcer, rash, bleeding. JOINTS: No active deforming arthropathy. LABS: CBC within normal limits. Sodium 137. CO2 is 19. UA noted. ASSESSMENT: 1. Intractable nausea, vomiting; possible acute gastroparesis, acute exacerbation. 2. Severe dehydration. 3. Metabolic acidosis. 4. Ketonuria and ketosis, possibly from starvation ketosis. 5. Gastroesophageal reflux disease. 6. Hyperlipidemia. 7. History of gastritis. 8. Esophageal tears. 9. History of tendinitis. 10.History of migraine. 11.History of Botox injections. 12.History of anxiety, depression. 13.History of nicotine dependence, ongoing. 14.History of tetrahydrocannabinol. 15.FULL CODE. RECOMMENDATIONS AND DISCUSSION: In this 40-year-old woman who presented with multiple complex medical issues, we will monitor the patient closely, continue the current medications, continue symptomatic treatment. IV Protonix. Otherwise, I would also recommend serum ketones. Symptomatic treatment. Resume the home medications. Gastroenterology evaluation. Guarded prognosis because of multiple complex medical issues. Further recommendations to follow. A copy of this dictation is being forwarded to Dr. Bui, who is the primary physician. MMRICCARDOL / CORINEN: [id number] / MTDD
[2020-06-27] MEDS: ONDANSETRON 4 MG/2 ML VIAL IVP PRN (17:54)
[2020-06-27] MEDS: PANTOPRAZOLE 40 MG/10 ML VIAL IV SCH (20:12)
[2020-06-28] MEDS: HYDROmorphone 0.5 MG/0.5 ML SYRINGE IVP PRN ×2 (04:02→09:52)
[2020-06-28] MEDS: D5-0.9% NACL WITH KCL 40 MEQ/L 1,000 ML IV SCH (04:11)
[2020-06-28] MEDS: ONDANSETRON 4 MG/2 ML VIAL IVP PRN ×2 (07:31→15:51)
[2020-06-28] MEDS ORDERED: PANTOPRAZOLE 40 MG/10 ML VIAL IV SCH (09:00)
[2020-06-28] MEDS: HEPARIN SODIUM,PORCINE 5,000 UNIT/ML 1 ML VIAL SQ SCH (09:01)
[2020-06-28] MEDS: PANTOPRAZOLE 40 MG/10 ML VIAL IV SCH (09:01)
[2020-06-28 10:00] VITALS: BMI 21.9
[2020-06-28 11:07] LABS: Basophils % (A) 1 %; Eosinophils # (A) 0.1 k/uL (0-0.7); Eosinophils % (A) 1 %; HCT 36.7 % (34.0-46.0); HGB 11.6 gm/dL (11.4-16.0); Lymphocytes # (A) 2.1 k/uL (1.0-4.8); Lymphocytes % (A) 42 %; MCH 32.5 pg (25.0-35.0); MCHC 31.7 g/dL (31.0-37.0); MCV 102.7 fL (80.0-100.0); Macrocytosis Slight; Mean Platelet Volume 7.6; Monocytes # (A) 0.2 k/uL (0-1.0); Monocytes % (A) 5 %; Neutrophils # (A) 2.4 k/uL (1.3-7.7); Neutrophils % (A) 49 %; Platelet Count 256 k/uL (150-450); RBC 3.58 m/uL (3.80-5.40); RDW 12.3 % (11.5-15.5)
[2020-06-28] MEDS ORDERED: SODIUM CHLORIDE 0.9% 1,000 ML IV SCH (11:15)
[2020-06-28 11:26] LABS: African American GFR (CKD) >90 (>60 ml/min/1.73 sqM); Anion Gap 6 mmol/L; Blood Urea Nitrogen 4 mg/dL (7-17); Calcium 8.7 mg/dL (8.4-10.2); Carbon Dioxide 21 mmol/L (22-30); Chloride 109 mmol/L (98-107); Glucose 88 mg/dL (74-99); Non-African American GFR(CKD) >90 (>60 ml/min/1.73 sqM); Potassium 4.1 mmol/L (3.5-5.1); Sodium 136 mmol/L (137-145)
[2020-06-28] MEDS ORDERED: FOLIC ACID 1 MG TAB PO SCH (12:00)
[2020-06-28] MEDS ORDERED: MULTIVITAMINS, THERA 1 EACH TAB PO SCH (12:00)
[2020-06-28] MEDS ORDERED: THIAMINE 100 MG TAB PO SCH (12:00)
[2020-06-28 15:57] VITALS: BP 103/69; PULSE 55; RESP 18; TEMP 98.5
--- NOTE | 2020-06-28 16:38 | PN ---
PROGRESS NOTE DATE OF SERVICE: 06/28/2020 This is a 40-year-old female with a past history of multiple medical problems admitted with acute gastritis, acute exacerbation. Patient had incessant vomiting and patient apparently had a starvation ketosis with metabolic acidosis. The patient was seen by Dr. Bui and the outpatient center at [facility] also Botox injection was done locally, but the most recent injection was not effective according to her. PAST MEDICAL HISTORY: Reviewed. REVIEW OF SYSTEMS: CARDIOVASCULAR SYSTEM: No angina. RESPIRATION: As mentioned earlier. GI: As mentioned earlier. : No dysuria. NERVOUS SYSTEM: No numbness or weakness. CURRENT MEDICATIONS: Reviewed and include: 1. Tylenol p.r.n. 2. [place] 5 mg q.6 p.r.n. 3. Folic acid. 4. Heparin. 5. Dilaudid. 6. Ativan. 7. Multivitamins. 8. Zofran. 9. Protonix. 10.Restoril. 11.Vitamin B1. PHYSICAL EXAM: Patient is alert and oriented x3. Pulse 53, blood pressure 91/51, respirations 16, temperature 98.2, pulse ox 98% on room air. HEENT: Conjunctivae normal. NECK: No jugular venous distension. CARDIOVASCULAR SYSTEM: S1, S2, muffled. RESPIRATION: Breath sounds diminished at the bases, no rhonchi, no crackles. ABDOMEN: Soft, mild diffuse discomfort on palpation. LEGS: No edema. No swelling. NERVOUS SYSTEM: No focal deficits. LABS: WBC 5, hemoglobin 11.2, sodium 136. UA noted. ASSESSMENT: 1. Intractable nausea and vomiting, acute gastroparesis and acute exacerbation. 2. Severe dehydration, present on admission. 3. Starvation ketosis and acute metabolic acidosis, present on admission. 4. GERD. 5. Hyperlipidemia. 6. History of gastritis. 7. Hyponatremia. 8. Esophagitis history. 9. History of tendinitis. 10.History of migraine. 11.History of Botox injections. 12.History of anxiety, depression. 13.History of nicotine dependence, ongoing, continuing. 14.History of THC. 15.FULL CODE. RECOMMENDATION: Recommend to continue current management and symptomatic treatment. Slowly advance diet. Repeat labs. Continue IV fluids, prognosis guarded because of multiple complex medications. Further recommendations to follow. MMODL / IJN: [id number] /
--- NOTE | 2020-06-28 22:56 | CONS ---
CONSULTATION DATE OF DICTATION: June 28, 2020. REASON FOR CONSULTATION: Persistent nausea, vomiting, and diarrhea. HISTORY OF PRESENT ILLNESS: The patient is a 48-year-old pleasant white female with longstanding history of idiopathic gastroparesis, hypertension, gastroesophageal reflux disease who was admitted to the hospital because of persistent nausea vomiting for the last 3-4 days duration. She came to the emergency room, was treated symptomatically and discharged home, came back again yesterday and was subsequently admitted to the hospital. She had several episodes of emesis yesterday, at least 3 or 4 times. She was subsequently started on Zofran, Compazine and Protonix and she is feeling much better today. She was started on a clear liquid diet this morning and subsequently advanced to a low-fat diet and she is so far doing well. She had an upper endoscopy with Botox injection of the pylorus in April of this year and after that she did not notice much improvement in her symptoms. She also complains of epigastric pain. PAST MEDICAL HISTORY: Idiopathic gastroparesis, hypertension, hyperlipidemia, anxiety and depression. MEDICATIONS: Medications at home include Compazine, Protonix, Zofran. ALLERGIES: BACTRIM. SOCIAL HISTORY: Smokes weed. No alcohol use. FAMILY HISTORY: Unremarkable. REVIEW OF SYSTEMS: CARDIOPULMONARY: No chest pain, no shortness of breath. GENITOURINARY: No dysuria or hematuria. MUSCULOSKELETAL unremarkable. SKIN unremarkable. ENDOCRINE unremarkable. PSYCHIATRIC: Anxiety/depression. ENT: Vision unremarkable. CONSTITUTIONAL: No recent weight loss. No fever, chills, night sweats. HEMATOLOGY unremarkable. ONCOLOGY unremarkable. ENDOCRINE unremarkable. PHYSICAL EXAMINATION: She appears comfortable. No apparent distress. Vital signs stable. Blood pressure is 133/86, pulse rate 55 per minute and temperature 98.5. HEENT examination unremarkable. Conjunctivae pink. Sclerae anicteric. Oral cavity no lesions. NECK: No JVD or lymph node enlargement. Chest was clear to auscultation. HEART: Regular rate and rhythm. ABDOMEN: Soft. Mild tenderness in the epigastric area. Rest of the abdomen was benign. Bowel sounds are positive. EXTREMITIES: No pedal edema. SKIN: No rashes. NEUROLOGIC: Alert and oriented x3. No focal deficits. LABS: Yesterday WBC 10.6, hemoglobin 13.9, platelets normal. Basic metabolic panel is within normal limits. Today, CBC is within normal limits and basic metabolic panel: Sodium 136, potassium 4.1, CO2 112, BUN 6, creatinine 0.4. Amylase and lipase are normal. IMPRESSION: 1. Persistent nausea vomiting for the last 3 days duration, probably related to the idiopathic gastroparesis that was diagnosed several years ago, presently on symptomatic therapy with Zofran, Compazine and doing much better. Also remains on Protonix 40 mg twice daily. 2. History of anxiety, depression. 3. Gastroesophageal reflux disease. RECOMMENDATIONS: 1. Continue with symptomatic and supportive care. 2. Gradually advance diet as tolerated. 3. If she is able to tolerate her dinner, she can be discharged home today with outpatient followup in 2 weeks. Thank you for this consultation. MMODL / IJN: [id number] /
--- NOTE | 2020-06-28 23:50 | DS ---
DISCHARGE SUMMARY FINAL DIAGNOSES: 1. Intractable nausea, vomiting with acute gastroparesis, acute exacerbation. 2. Severe dehydration, present on admission. 3. Starvation ketosis acute metabolic acidosis, present on admission secondary to #1. 4. Gastroesophageal reflux disease. 5. Hyperlipidemia. 6. History of gastritis. 7. Hyponatremia. 8. Esophagitis history. 9. History of tendinitis. 10.History of migraine. 11.History of portal injection. 12.Anxiety, depression. 13.History of nicotine dependence, ongoing, continuing. 14.History of THC. 15.FULL CODE. 16. Total time taken 35 minutes. HISTORY OF PRESENT ILLNESS: This 40-year-old woman with a past medical history of multiple medical problems admitted with intractable nausea, vomiting with gastroparesis and multiple other medical complications as mentioned earlier, treated symptomatically. The patient improved significantly but however the patient is keen on going home. At this time the patient is being discharged in stable with guarded prognosis. On exam, vitals are stable. Cardiovascular S1, S2. Abdomen soft. Nervous system: No focal deficits. Most recent CO2 was 21. Recommended outpatient followup. DISCHARGE MEDICATIONS/ADVICE: 1. Diet is cardiac. 2. Activity limited until followup. 3. Follow up with Dr. Bui in 1-2 days. 4. Follow up with Dr. Flores as recommended. 5. Compazine p.r.n. 6. Protonix 40 mg p.o. b.i.d. 7. Zofran p.r.n. 8. CBC and BMP with Dr. Bui. Once again, the patient is being discharged in stable condition with guarded prognosis. MMODL / IJN: [id number] /
== END 2020-06-28 19:47 | disposition home or self-care (01) ==
LOC: EC 09:55 → 6PED 12:33
PROVIDERS: ADMIT Hospitalist; ATTEND Hospitalist
DX: K31.84 Gastroparesis (principal); E87.2 Acidosis; E86.0 Dehydration; K21.0 Gastro-esophageal reflux disease with esophagitis; E78.5 Hyperlipidemia, unspecified; E87.1 Hypo-osmolality and hyponatremia; G43.909 Migraine, unspecified, not intractable, without status migrainosus; I10 Essential (primary) hypertension; M77.9 Enthesopathy, unspecified; G89.29 Other chronic pain; M54.5 Low back pain; R19.7 Diarrhea, unspecified; R68.83 Chills (without fever); R82.4 Acetonuria; F41.9 Anxiety disorder, unspecified; F32.9 Major depressive disorder, single episode, unspecified; Z79.899 Other long term (current) drug therapy; Z88.1 Allergy status to other antibiotic agents; Z88.2 Allergy status to sulfonamides; Z87.440 Personal history of urinary (tract) infections; Z87.19 Personal history of other diseases of the digestive system; Z98.51 Tubal ligation status; Z86.59 Personal history of other mental and behavioral disorders; Z90.49 Acquired absence of other specified parts of digestive tract; Z80.3 Family history of malignant neoplasm of breast; Z81.1 Family history of alcohol abuse and dependence; Z81.8 Family history of other mental and behavioral disorders; Z82.0 Family history of epilepsy and other diseases of the nervous system
CPT/HCPCS: 96361 ×3; 96372 ×2; 96375 ×2; 96376 ×2; 96374; 99285; 36415; 80053; 80048; 82150; 82009; 83690; 85025 ×2; 81001; 81025; 71045; G0378 ×2; U0003; J2270; J1200; J1644 ×2; J2765; J2405 ×2; C9113 ×2; J1170 ×2

== ENCOUNTER 2020-08-27 04:24 | Observation (INO) | payer MEDICARE ==
[2020-08-27] MEDS ORDERED: ONDANSETRON 4 MG/2 ML VIAL IVP STA (04:32)
[2020-08-27] MEDS ORDERED: SODIUM CHLORIDE 0.9% 1,000 ML IV STA (04:32)
[2020-08-27] MEDS ORDERED: METOCLOPRAMIDE 5 MG/ML 2 ML VIAL IVP STA (04:53)
[2020-08-27] MEDS ORDERED: diphenhydrAMINE 50 MG/ML 1 ML VIAL IVP STA (04:53)
[2020-08-27] MEDS ORDERED: MORPHINE SULFATE 4 MG/ML SYRINGE IVP STA (04:53)
[2020-08-27 05:19] LABS: Basophils % (A) 0 %; Eosinophils # (A) 0.3 k/uL (0-0.7); Eosinophils % (A) 2 %; HCT 45.8 % (34.0-46.0); HGB 15.7 gm/dL (11.4-16.0); Lymphocytes % (A) 5 %; MCHC 34.3 g/dL (31.0-37.0); MCV 96.4 fL (80.0-100.0); Mean Platelet Volume 7.4; Monocytes # (A) 0.6 k/uL (0-1.0); Monocytes % (A) 3 %; Neutrophils # (A) 19.5 k/uL (1.3-7.7); Neutrophils % (A) 91 %; Platelet Count 516 k/uL (150-450); RBC 4.75 m/uL (3.80-5.40); RDW 12.7 % (11.5-15.5); WBC 21.5 k/uL (3.8-10.6)
[2020-08-27 05:35] LABS: Albumin 5.6 g/dL (3.5-5.0); Calcium 11.1 mg/dL (8.4-10.2); Potassium 4.6 mmol/L (3.5-5.1); Total Bilirubin 1.2 mg/dL (0.2-1.3); Total Protein 9.7 g/dL (6.3-8.2)
[2020-08-27] MEDS ORDERED: NALOXONE 0.4 MG/ML 1 ML VIAL IV PRN (06:22)
[2020-08-27] MEDS ORDERED: ONDANSETRON 4 MG/2 ML VIAL IVP PRN (06:22)
[2020-08-27] MEDS ORDERED: MORPHINE SULFATE 4 MG/ML SYRINGE IV PRN (06:22)
[2020-08-27] MEDS ORDERED: LORazepam 2 MG/ML INJ IV PRN (06:22)
[2020-08-27] MEDS: HYDROmorphone 0.5 MG/0.5 ML SYRINGE IVP PRN ×4 (06:35→21:52)
[2020-08-27 06:45] LABS: Appearance,Urine Cloudy (Clear); Bacteria,Urine Occasional /hpf; Bilirubin,Urine 1+ (Negative); Blood,Urine Moderate (Negative); Color,Urine Dark Yellow; Glucose,Urine (UA) Trace (Negative); Granular Casts,Urine 9 /lpf (0); Hyaline Casts,Urine 522 /lpf (0-2); Ketones,Urine 2+ (Negative); Leukocyte Esterase,Urine Negative (Negative); Mucus,Urine Many /hpf; Nitrite,Urine Negative (Negative); PH, Urine 5.5 (5.0-8.0); Protein,Urine 2+ (Negative); RBC,Urine 22 /hpf (0-5); Specific Gravity,Urine 1.027 (1.001-1.035); Squamous Epithelial Cell,Urine 14 /hpf (0-4); WBC,Urine 5 /hpf (0-5)
[2020-08-27 07:01] LABS: Amphetamine Screen,Urine Not Detected (NotDetected); Barbiturate Screen,Urine Not Detected (NotDetected); Benzodiazepines Screen,Urine Not Detected (NotDetected); Cocaine Screen,Urine Not Detected (NotDetected); Methadone Screen, Urine Not Detected (NotDetected); Opiate Screen,Urine Detected (NotDetected); Oxycodone Screen, Urine Not Detected (NotDetected); Phencyclidine Screen,Urine Not Detected (NotDetected); Tricyclic Antidepressant,Urine Not Detected (NotDetected); Urn Cannabinoid Scrn Detected (NotDetected)
--- NOTE | 2020-08-27 07:01 | ED ---
Abdominal Pain HPI - General Chief Complaint: Abdominal Pain Stated Complaint: abd pain,chest pain,vomiting Time Seen by Provider: 08/27/20 04:31 Source: patient Mode of arrival: wheelchair Limitations: no limitations - History of Present Illness Initial Comments: Francy is a 40-year-old female with a history of idiopathic gastroparesis who presents to the ER today for evaluation of epigastric discomfort, nausea and vomiting for nearly 12 hours duration. Patient reports she's taken her home medications with no improvement. She reports she can't hold down any liquids or solid food. Denies fevers or chills. Denies preceding illness. - Related Data Home Medications Medication Instructions Recorded Confirmed Ondansetron Odt [Zofran ODT] 8 mg PO Q12H PRN 08/27/20 08/27/20 Allergies Allergy/AdvReac Type Severity Reaction Status Date / Time sulfamethoxazole Allergy Rash/Hives Verified 08/27/20 06:50 [From Bactrim] trimethoprim [From Bactrim] Allergy Rash/Hives Verified 08/27/20 06:50 Review of Systems ROS Statement: Those systems with pertinent positive or pertinent negative responses have been documented in the HPI. ROS Other: All systems not noted in ROS Statement are negative. Past Medical History Past Medical History: GERD/Reflux, Hyperlipidemia, Renal Disease Additional Past Medical History / Comment(s): Gastroparesis, gastritis, esophageal tears, chronic low back pain, herniated lower discs, bilateral wrist tendonitis with R side worse, R shoulder pain past couple months, numbness to bilateral hand fingers when first wakes, migraines, instructed to sleep with HOB up 6 inches d/t heart rate dropping with sleep, vertigo, pyelonephritis, History of Any Multi-Drug Resistant Organisms: None Reported Past Surgical History: Appendectomy, Tubal Ligation Additional Past Surgical History / Comment(s): Botox injection "mouth" of stomach-R/T SPASMS , EGDs, colonoscopy, vaginal cyst drained. Past Anesthesia/Blood Transfusion Reactions: No Reported Reaction Additional Past Anesthesia/Blood Transfusion Reaction / Comment(s): never had blood transfusion. Past Psychological History: Anxiety, Depression Smoking Status: Current every day smoker Past Alcohol Use History: None Reported Past Drug Use History: Marijuana - Past Family History Mother Family Medical History: Cancer Additional Family Medical History / Comment(s): Mother is living. She has had breast cancer and 2 back surgeries. Father Family Medical History: No Reported History Additional Family Medical History / Comment(s): Father had ETOH abuse and was manic depressive. He after a fall where he fractured his back then "drank" himself to . Brother(s) Family Medical History: Neurologic Disorder Sister(s) Family Medical History: No Reported History Son(s) Family Medical History: No Reported History Daughter(s) Family Medical History: No Reported History General Exam - General Exam Comments Initial Comments: Physical Exam GENERAL: Dehydrated, appears uncomfortable HENT: Normocephalic, Atraumatic. Dry mucous membranes EYES: PERRL, EOMI PULMONARY: Unlabored respirations. CARDIOVASCULAR: RRR Warm and well perfused extremities ABDOMEN: Soft, tenderness to deep palpation in epigastrum Non-distended SKIN: No rashes or bruising : Deferred NEUROLOGIC: Alert and oriented Normal speech Normal gait MUSCULOSKELETAL: Moving all extremities with no apparent injury PSYCHIATRIC: No SI/HI Limitations: no limitations Course Vital Signs 08/27/20 08/27/20 08/27/20 04:28 05:31 06:31 Temperature 98.4 F Pulse Rate 125 H 76 71 Pulse Rate [ Left Pulse Oximetery] Respiratory 26 H 16 16 Rate Blood Pressure 116/86 126/92 121/77 Blood Pressure [Left Arm Supine] O2 Sat by Pulse 96 97 98 Oximetry 08/27/20 06:53 Temperature 98.2 F Pulse Rate Pulse Rate [ 67 Left Pulse Oximetery] Respiratory 18 Rate Blood Pressure Blood Pressure 151/91 [Left Arm Supine] O2 Sat by Pulse 96 Oximetry Medical Decision Making - Medical Decision Making She was seen and evaluated history was obtained from patient medical record Labs are obtained and revealed leukocytosis likely reactive as there is no infectious source Patient was treated with IV fluids antiemetics and pain medication, despite this she had persistent nausea and vomiting while in the emergency department. Given the patient's history we'll admit her for evaluation by gastroenterology She care was discussed with Dr. Zamora of [facility] who accepts admission - Lab Data Result diagrams: 08/27/20 05:08 08/27/20 05:08 Lab Results 08/27/20 08/27/20 Range/Units 05:08 05:08 WBC 21.5 H (3.8-10.6) k/uL RBC 4.75 (3.80-5.40) m/uL Hgb 15.7 (11.4-16.0) gm/dL Hct 45.8 (34.0-46.0) % MCV 96.4 (80.0-100.0) fL MCH 33.0 (25.0-35.0) pg MCHC 34.3 (31.0-37.0) g/dL RDW 12.7 (11.5-15.5) % Plt Count 516 H (150-450) k/uL Neutrophils % 91 % Lymphocytes % 5 % Monocytes % 3 % Eosinophils % 2 % Basophils % 0 % Neutrophils # 19.5 H (1.3-7.7) k/uL Lymphocytes # 1.0 (1.0-4.8) k/uL Monocytes # 0.6 (0-1.0) k/uL Eosinophils # 0.3 (0-0.7) k/uL Basophils # 0.0 (0-0.2) k/uL Sodium 142 (137-145) mmol/L Potassium 4.6 (3.5-5.1) mmol/L Chloride 104 (98-107) mmol/L Carbon Dioxide 17 L (22-30) mmol/L Anion Gap 21 mmol/L BUN 17 (7-17) mg/dL Creatinine 1.61 H (0.52-1.04) mg/dL Est GFR (CKD-EPI)AfAm 45 (>60 ml/min/1.73 sqM) Est GFR (CKD-EPI)NonAf 39 (>60 ml/min/1.73 sqM) Glucose 227 H (74-99) mg/dL Calcium 11.1 H (8.4-10.2) mg/dL Total Bilirubin 1.2 (0.2-1.3) mg/dL AST 21 (14-36) U/L ALT 16 (4-34) U/L Alkaline Phosphatase 94 (38-126) U/L Total Protein 9.7 H (6.3-8.2) g/dL Albumin 5.6 H (3.5-5.0) g/dL Lipase 38 (23-300) U/L Disposition Clinical Impression: Dehydration, Vomiting, Gastroparesis, Intractable nausea and vomiting Disposition: ADMITTED IP TO THIS [facility] Condition: Stable Is patient prescribed a controlled substance at d/c from ED?: No Referrals: Jewell Bui MD [Primary Care Provider] - 1 Week
[2020-08-27] MEDS: PANTOPRAZOLE 40 MG/10 ML VIAL IVP SCH ×2 (08:41→21:53)
[2020-08-27] MEDS: SODIUM CHLORIDE 0.9% 1,000 ML IV SCH ×2 (08:41→18:04)
[2020-08-27] MEDS ORDERED: bisacodyL 5 MG TABLET.DR PO STA (10:58)
[2020-08-27] MEDS ORDERED: METOCLOPRAMIDE 5 MG/ML 2 ML VIAL IVP PRN (10:59)
[2020-08-27] MEDS: ONDANSETRON 4 MG/2 ML VIAL IVP SCH ×2 (11:16→18:04)
[2020-08-27] MEDS: HYDROCORTISONE SUPPOSITORY 25 MG SUPP RECTAL SCH (11:16)
[2020-08-27] MEDS ORDERED: HYDROcodone/APAP 5-325MG 1 EACH TAB PO PRN (17:28)
[2020-08-27] MEDS ORDERED: TEMAZEPAM 15 MG CAP PO PRN (17:28)
[2020-08-27] MEDS ORDERED: ALPRAZolam 0.25 MG TAB PO PRN (17:28)
[2020-08-27] MEDS: NICOTINE 14MG/24HR PATCH TRANSDERM SCH (18:03)
--- NOTE | 2020-08-27 20:36 | HP ---
HISTORY AND PHYSICAL DATE OF SERVICE: 08/27/2020 CHIEF COMPLAINTS: Abdominal pain and vomiting. HISTORY OF PRESENT ILLNESS: This 40-year-old woman with a past medical history of multiple medical problems, including history of gastroparesis, history of GERD, hyperlipidemia, history of gastritis, history of esophagitis, history of migraines, history of depression, being followed by Dr. Bui in the outpatient setting, was recently admitted with intractable nausea with gastroparesis, acute exacerbation. Currently the patient is complaining of diffuse discomfort, nausea and vomiting for the last 24 hours; patient unable to keep anything down. The patient came to [facility] and was admitted for further evaluation and treatment. There is no history of any fever, rigor or chills. No history of headache, loss of consciousness, seizures. White count is elevated at 21.5. Possible UTI also noted. Drug screen positive for THC and opiates. PAST MEDICAL HISTORY: History of GERD, hyperlipidemia, history of renal disease, gastroparesis, esophageal tears, history of DJD, appendectomy, tubal ligation, anxiety, depression. MEDICATIONS PRIOR TO ADMISSION: Zofran 8 mg b.i.d., Protonix 40 mg daily. ALLERGIES: BACTRIM. FAMILY HISTORY: History of breast cancer and back surgery. SOCIAL HISTORY: History of THC, history of smoking. REVIEW OF SYSTEMS: ENT: No diminished hearing. No diminished vision. CARDIOVASCULAR SYSTEM: No angina, palpitations. RESPIRATORY SYSTEM: As mentioned earlier. GI: As mentioned earlier. : No dysuria or retention. NERVOUS SYSTEM: No numbness, weakness. ALLERGY/IMMUNOLOGY: No asthma, hayfever. MUSCULOSKELETAL: As mentioned earlier. HEMATOLOGY/ONCOLOGY: No history of anemia. ENDOCRINE: No history of diabetes, hypothyroidism. CONSTITUTIONAL: As mentioned earlier. DERMATOLOGY: Negative. RHEUMATOLOGY: Negative. PSYCHIATRY: As mentioned earlier. PHYSICAL EXAMINATION: Patient is alert, oriented x3. Pulse is 82, blood pressure 114/75, respiration 20, temperature 99.1, pulse ox 96% on room. HEENT: Conjunctivae normal. Oral mucosa moist. NECK: No jugular venous distention. No carotid bruit. No lymph node enlargement. CARDIOVASCULAR SYSTEM: S1, S2 muffled. No S3. No S4. RESPIRATORY SYSTEM: Breath sounds diminished at the bases. A few rhonchi. No crackles. ABDOMEN: Soft. Mild diffuse tenderness in the epigastrium. No guarding. No mass palpable. LEGS: No edema. No swelling. NERVOUS SYSTEM: Moves all 4 limbs. No focal motor or sensory deficits. LYMPHATICS: No lymph node palpable in neck, axillae or groin. SKIN: No ulcer, rash, bleeding. JOINTS: No active deforming arthropathy. LABS: WBC 21.5, hemoglobin 15.7, sodium 142, potassium 4.6, creatinine 1.61, calcium 11.1. ASSESSMENT: 1. Nausea, vomiting and abdominal pain, possible acute gastritis, acute exacerbation. 2. Acute urinary tract infection, present on admission. 3. Increased white count. 4. Elevated creatinine with mild acute renal failure, prerenal acute tubular necrosis. 5. Hypercalcemia, possibly secondary to dehydration. 6. History of gastroparesis. 7. Hyperlipidemia. 8. History of chronic kidney disease, stage 3. 9. History of esophageal tears. 10.Degenerative joint disease, chronic back pain. 11.History of migraines. 12.History of pyelonephritis. 13.History of Botox injections for gastroparesis. 14.Anxiety, depression. 15.Continued ongoing nicotine dependence. 16.History of tetrahydrocannabinol. 17.FULL CODE. RECOMMENDATIONS AND DISCUSSION: In this 40-year-old woman who presented with multiple complex medical issues, we will monitor the patient closely, continue the current medications, continue with symptomatic treatment, resume the home medications. Protonix. Symptomatic treatment. Gastroenterology evaluation. Guarded prognosis because of multiple complex medical issues. Further recommendations to follow. A copy of this dictation is being forwarded to Dr. Bui, who is the primary physician. I would also recommend empiric antibiotics. MMODL / IJN: [id number] /
[2020-08-27] MEDS: HEPARIN SODIUM,PORCINE 5,000 UNIT/ML 1 ML VIAL SQ SCH (21:52)
[2020-08-28] MEDS: ONDANSETRON 4 MG/2 ML VIAL IVP SCH ×3 (00:32→11:56)
[2020-08-28] MEDS: HYDROmorphone 0.5 MG/0.5 ML SYRINGE IVP PRN ×3 (00:49→11:56)
[2020-08-28 05:09] VITALS: PULSE 92
[2020-08-28] MEDS: SODIUM CHLORIDE 0.9% 1,000 ML IV SCH ×3 (06:42→11:57)
[2020-08-28 07:36] LABS: Basophils % (A) 0 %; Eosinophils # (A) 0.1 k/uL (0-0.7); Eosinophils % (A) 1 %; HCT 31.8 % (34.0-46.0); Lymphocytes # (A) 3.4 k/uL (1.0-4.8); Lymphocytes % (A) 35 %; MCH 32.7 pg (25.0-35.0); MCHC 32.7 g/dL (31.0-37.0); Mean Platelet Volume 7.3; Monocytes # (A) 0.5 k/uL (0-1.0); Monocytes % (A) 5 %; Neutrophils # (A) 5.5 k/uL (1.3-7.7); Neutrophils % (A) 56 %; Platelet Count 307 k/uL (150-450); RBC 3.18 m/uL (3.80-5.40); RDW 12.6 % (11.5-15.5); WBC 9.9 k/uL (3.8-10.6)
[2020-08-28 07:42] LABS: HGB 10.4 gm/dL (11.4-16.0)
[2020-08-28 07:49] LABS: African American GFR (CKD) >90 (>60 ml/min/1.73 sqM); Anion Gap 5 mmol/L; Blood Urea Nitrogen 16 mg/dL (7-17); Calcium 8.5 mg/dL (8.4-10.2); Carbon Dioxide 21 mmol/L (22-30); Chloride 109 mmol/L (98-107); Glucose 98 mg/dL (74-99); Non-African American GFR(CKD) >90 (>60 ml/min/1.73 sqM); Potassium 3.5 mmol/L (3.5-5.1); Sodium 135 mmol/L (137-145)
[2020-08-28 08:08] VITALS: RESP 16
[2020-08-28] MEDS: HEPARIN SODIUM,PORCINE 5,000 UNIT/ML 1 ML VIAL SQ SCH (08:09)
[2020-08-28] MEDS: HYDROCORTISONE SUPPOSITORY 25 MG SUPP RECTAL SCH (08:09)
[2020-08-28] MEDS: NICOTINE 14MG/24HR PATCH TRANSDERM SCH (08:10)
[2020-08-28] MEDS: PANTOPRAZOLE 40 MG/10 ML VIAL IVP SCH (08:10)
--- NOTE | 2020-08-28 09:44 | P.CONS ---
History of Present Illness - Reason for Consult Consult date: 08/27/20 Nausea and vomiting Requesting physician: Etta Valentine - Chief Complaint Nausea and vomiting - History of Present Illness 40-year-old female with multiple medical comorbidities including GERD, hyperlipidemia, gastritis, esophagitis, migraines, depression and gastroparesis who presented to the hospital with complaints nausea and vomiting. The patient has been followed in the outpatient setting and underwent EGD in 04/[address] Flores with findings of severe reflux esophagitis and Botox intact injection at that time. Patient is on multiple antiemetics at home and improving Zofran and Reglan she is also on Anusol and Dulcolax for treatment of hemorrhoids and Protonix for findings of reflux esophagitis. She has idiopathic gastroparesis. Laboratory evaluation on presentation significant for hemoglobin 15.7, platelet count 560,000, total bilirubin 1.2, alkaline phosphatase 94, AST 21, ALT 16. Review of Systems REVIEW OF SYSTEMS: CONSTITUTIONAL: Denies any fevers, chills, weight change or fatigue. CARDIOVASCULAR: Denies any chest pain, palpitations high or low blood pressures RESPIRATORY: Denies any shortness of breath, hemoptysis or cough. GENITOURINARY: No dysuria or hematuria. MUSCULOSKELETAL: No weakness reported. SKIN: Denies any new rashes or lesions, jaundice or pallor. PSYCHIATRIC: Denies any depression or anxiety. NEUROLOGY: Denies headache, denies any new focal deficits. EARS/NOSE/THROAT: No recent hearing change, congestion, nasal discharge or sore throat. EYES: No pain in eyes, discharge or change in vision. GASTROINTESTINAL: As per HPI. Past Medical History Past Medical History: GERD/Reflux, Hyperlipidemia, Renal Disease Additional Past Medical History / Comment(s): Gastroparesis, gastritis, esoph ageal tears, chronic low back pain, herniated lower discs, bilateral wrist tendonitis with R side worse, R shoulder pain past couple months, numbness to bilateral hand fingers when first wakes, migraines, instructed to sleep with HOB up 6 inches d/t heart rate dropping with sleep, vertigo, pyelonephritis, History of Any Multi-Drug Resistant Organisms: None Reported Past Surgical History: Appendectomy, Tubal Ligation Additional Past Surgical History / Comment(s): Botox injection "mouth" of stomach-R/T SPASMS , EGDs, colonoscopy, vaginal cyst drained. Past Anesthesia/Blood Transfusion Reactions: No Reported Reaction Additional Past Anesthesia/Blood Transfusion Reaction / Comm: never had blood transfusion. Past Psychological History: Anxiety, Depression Smoking Status: Current every day smoker Past Alcohol Use History: None Reported Past Drug Use History: Marijuana - Past Family History Mother Family Medical History: Cancer Additional Family Medical History / Comment(s): Mother is living. She has had breast cancer and 2 back surgeries. Father Family Medical History: No Reported History Additional Family Medical History / Comment(s): Father had ETOH abuse and was manic depressive. He after a fall where he fractured his back then "drank" himself to . Brother(s) Family Medical History: Neurologic Disorder Sister(s) Family Medical History: No Reported History Son(s) Family Medical History: No Reported History Daughter(s) Family Medical History: No Reported History Medications and Allergies Home Medications Medication Instructions Recorded Confirmed Type Ondansetron Odt [Zofran ODT] 8 mg PO Q12H PRN 08/27/20 08/27/20 History Pantoprazole Sodium [Protonix] 40 mg PO DAILY #30 tablet. 08/27/20 Rx Allergies Allergy/AdvReac Type Severity Reaction Status Date / Time sulfamethoxazole Allergy Rash/Hives Verified 08/27/20 06:50 [From Bactrim] trimethoprim [From Bactrim] Allergy Rash/Hives Verified 08/27/20 06:50 Physical Exam Vitals: Vital Signs Temp Pulse Pulse Resp BP BP Pulse Ox 08/27/20 09:00 99.1 F 82 20 114/75 96 08/27/20 06:53 98.2 F 67 18 151/91 96 08/27/20 06:31 71 16 121/77 98 08/27/20 05:31 76 16 126/92 97 08/27/20 04:28 98.4 F 125 H 26 H 116/86 96 Intake and Output 08/26/20 08/27/20 08/27/20 22:59 06:59 14:59 Other: Voiding Method Toilet # Voids 1 1 Weight 61.235 kg On physical examination, patient appears comfortable in no apparent distress. HEAD: Normocephalic, atraumatic. EYES: No scleral icterus. No conjunctival injection. MOUTH: No lesions, tongue midline. NECK: Trachea midline, no gross abnormalities. CHEST: Clear to auscultation with no wheezing or rhonchi appreciated. HEART: Regular rate and rhythm. ABDOMEN: Soft, thin and mildly tender. Bowel sounds are positive. No organomegaly. No guarding or rigidity. EXTREMITIES: No pedal edema. SKIN: No rashes, no jaundice. NEUROLOGIC: Alert and oriented x3. No focal deficits. Results CBC & Chem 7: 08/28/20 07:17 08/28/20 07:17 Labs: Abnormal Lab Results - Last 24 Hours (Table) 08/27/20 08/27/20 08/27/20 Range/Units 05:08 05:08 06:29 WBC 21.5 H (3.8-10.6) k/uL Plt Count 516 H (150-450) k/uL Neutrophils # 19.5 H (1.3-7.7) k/uL Carbon Dioxide 17 L (22-30) mmol/L Creatinine 1.61 H (0.52-1.04) mg/dL Glucose 227 H (74-99) mg/dL Calcium 11.1 H (8.4-10.2) mg/dL Total Protein 9.7 H (6.3-8.2) g/dL Albumin 5.6 H (3.5-5.0) g/dL Urine Appearance Cloudy H (Clear) Urine Protein 2+ H (Negative) Urine Glucose (UA) Trace H (Negative) Urine Ketones 2+ H (Negative) Urine Blood Moderate H (Negative) Urine Bilirubin 1+ H (Negative) Urine RBC 22 H (0-5) /hpf Ur Squamous Epith Cells 14 H (0-4) /hpf Urine Bacteria Occasional H (None) /hpf Hyaline Casts 522 H (0-2) /lpf Urine Mucus Many H (None) /hpf Urine Opiates Screen (NotDetected) U Marijuana (THC) Screen (NotDetected) 08/27/20 Range/Units 06:30 WBC (3.8-10.6) k/uL Plt Count (150-450) k/uL Neutrophils # (1.3-7.7) k/uL Carbon Dioxide (22-30) mmol/L Creatinine (0.52-1.04) mg/dL Glucose (74-99) mg/dL Calcium (8.4-10.2) mg/dL Total Protein (6.3-8.2) g/dL Albumin (3.5-5.0) g/dL Urine Appearance (Clear) Urine Protein (Negative) Urine Glucose (UA) (Negative) Urine Ketones (Negative) Urine Blood (Negative) Urine Bilirubin (Negative) Urine RBC (0-5) /hpf Ur Squamous Epith Cells (0-4) /hpf Urine Bacteria (None) /hpf Hyaline Casts (0-2) /lpf Urine Mucus (None) /hpf Urine Opiates Screen Detected H (NotDetected) U Marijuana (THC) Screen Detected H (NotDetected) Assessment and Plan (1) Gastroparesis Narrative/Plan: 40-year-old female with a medical history significant for gastroparesis status post Botox injection in May 13 and severe reflux esophagitis presented to the hospital with nausea and vomiting. Current Visit: Yes Status: Acute Code(s): K31.84 - GASTROPARESIS SNOMED Code(s): 662298405 (2) Intractable nausea and vomiting Current Visit: Yes Status: Acute Code(s): R11.2 - NAUSEA WITH VOMITING, UNSPECIFIED SNOMED Code(s): 465840320 Plan: Supportive care Clear liquid diet A Zofran changed around a proximal Protonix increased to twice a day Reglan as needed for nausea Dulcolax nightly added Anusol changed to suppository Thank you for allowing us to participate in the care of the patient
--- NOTE | 2020-08-28 13:14 | P.PN ---
Subjective Progress Note Date: 08/28/20 Principal diagnosis: Nausea vomiting This 40-year-old female with multiple medical comorbidities with a history of idiopathic gastroparesis who was admitted to the hospital for intractable nausea and vomiting. The patient was seen and examined at the bedside today. She states the vomiting has improved, still has some mild nausea and some. Umbilical discomfort. Patient states she had 2 bowel movements. She states she is overall feeling better. She has been afebrile with no acute changes through the night. Objective - Vital Signs Vital signs: Vital Signs Temp 98.6 F 08/28/20 08:06 Pulse 92 08/28/20 08:06 Resp 16 08/28/20 08:06 BP 112/65 08/28/20 08:06 Pulse Ox 97 08/28/20 08:06 Intake & Output 08/27/20 08/28/20 08/28/20 18:59 06:59 18:59 Intake Total 450 450 Balance 450 450 Intake: Oral 450 450 Other: Voiding Method Toilet Toilet # Voids 1 1 1 # Bowel Movements 1 - Exam General appearance: The patient is alert, oriented, in no acute distress. HET: Head is normocephalic and atraumatic. Conjunctiva pink. Sclera and icteric. Neck: Supple without lymphadenopathy. Abdomen: Soft, nontender, nondistended with bowel sounds. No guarding or rigidity. Extremities: Normal skin color and turgor. No pedal edema Neurological: No focal deficits. Alert and oriented 3. - Labs CBC & Chem 7: 08/28/20 14:10 08/28/20 07:17 Labs: Abnormal Lab Results - Last 24 Hours (Table) 08/28/20 08/28/20 Range/Units 07:17 07:17 RBC 3.18 L (3.80-5.40) m/uL Hgb 10.4 L D (11.4-16.0) gm/dL Hct 31.8 L (34.0-46.0) % Sodium 135 L (137-145) mmol/L Chloride 109 H (98-107) mmol/L Carbon Dioxide 21 L (22-30) mmol/L Assessment and Plan (1) Gastroparesis Narrative/Plan: 40-year-old female with a medical history significant for gastroparesis status post Botox injection in May 13 and severe reflux esophagitis presented to the hospital with nausea and vomiting. Today symptoms have improved. She denies any vomiting. Has some mild. Umbilical pain. Current Visit: Yes Status: Acute Code(s): K31.84 - GASTROPARESIS SNOMED Code(s): 876046111 (2) Intractable nausea and vomiting Current Visit: Yes Status: Acute Code(s): R11.2 - NAUSEA WITH VOMITING, UNSPECIFIED SNOMED Code(s): 973053421 Plan: Supportive care Advance to full liquid diet Zofran changed to [id number] Protonix increased to twice daily Reglan as needed for nausea Dulcolax nightly added Anusol change to suppository okay for discharge Thank you for allowing us to participate in the care of the patient The impression and plan of care has been dictated as directed. I performed a history and examination of this patient, discussed the same with the dictator. I agree with the dictator's note ,documented as a scribe. Any additional findings or plans will be noted.
[2020-08-28 15:01] LABS: HCT 33.1 % (34.0-46.0); HGB 11.1 gm/dL (11.4-16.0); MCH 34.2 pg (25.0-35.0); MCHC 33.5 g/dL (31.0-37.0); Mean Platelet Volume 7.7; Platelet Count 268 k/uL (150-450); RBC 3.25 m/uL (3.80-5.40); RDW 12.3 % (11.5-15.5); WBC 8.5 k/uL (3.8-10.6)
[2020-08-28 15:07] VITALS: BP 108/62; TEMP 99.1
--- NOTE | 2020-08-31 23:17 | P.DS ---
Providers Date of admission: 08/27/20 06:22 Attending physician: Etta Valentine Consults: 08/27/20 06:22 Consult Physician Routine Consulting Provider: Lavonne Flores Consult Reason/Comments: gastroparesis Do you want consulting provider notified?: Yes, Notify in am Primary care physician: Ramya Mckeon [facility] Course: Diagnoses: Mostly acute gastroenteritis, improved Asymptomatic bacteriuria Acute kidney injury, present on admission. creatinine back to normal Gastroparesis Hyperlipidemia Chronic kidney disease, stage III Degenerative joint disease with chronic back pain History of migraine History of Botox injection for gastroparesis Anxiety and depression, not an active issue Anemia Hospital course: This is a pleasant 40 years old female who presents with nausea vomiting and abdominal pain. Patient was found to have acute gastroenteritis she was treated symptomatically with IV fluid, also she received antibiotics in the form ceftriaxone, patient showed interval improvement and her vomiting is stopped, abdominal pain is significantly improved and is only minimal today. She has regular bowel movements, they look brown, no bleeding per rectum. Patient has little blood in her vomitus but that's stopped now. Patient has been evaluated by automotive parts coordinator and diet was advised and patient tolerated that well, GI team. For discharge. Patient was so she wants to be discharged home today. She denies any other complaints, no chest pain or dyspnea, no fever. Problems and management plan were discussed with the patient and he verbalized understanding and acceptance Patient was found stable and can be discharged home however he needs follow-up as an outpatient. Patient was instructed to follow up with PCP Dr. Bui within one week and patient agrees. Also patient was instructed to follow up with automotive parts coordinator Dr. Flores in 1-2 weeks and she agrees. Patient agrees with the appointments made for her stated she will follow up Gen: patient is a AAOx3, no distress CVS: S1-S2, RRR, no murmur Lungs: B/L CTA, no wheezing Abdomen: soft, no distention, no tenderness, positive bowel sounds Extremity: no leg edema or induration Time spent more than 35 minutes Patient Condition at Discharge: Stable Plan - Discharge Summary Discharge Rx Participant: Yes New Discharge Prescriptions: New Pantoprazole Sodium [Protonix] 40 mg PO DAILY #30 tablet. Hydrocortisone Suppository [Anusol-Hc] 25 mg RECTAL DAILY supp Cefuroxime Axetil [Ceftin] 500 mg PO BID 7 Days #14 tab Nicotine 14Mg/24Hr Patch [Habitrol] 1 patch TRANSDERM DAILY #10 patch Changed Ondansetron Odt [Zofran ODT] 4 mg PO Q8H PRN 7 Days #21 tab PRN Reason: Nausea Discharge Medication List Pantoprazole Sodium [Protonix] 40 mg PO DAILY #30 tablet.dr 08/27/20 [Rx] Cefuroxime Axetil [Ceftin] 500 mg PO BID 7 Days #14 tab 08/28/20 [Rx] Hydrocortisone Suppository [Anusol-Hc] 25 mg RECTAL DAILY supp 08/28/20 [Rx] Nicotine 14Mg/24Hr Patch [Habitrol] 1 patch TRANSDERM DAILY #10 patch 08/28/20 [Rx] Ondansetron Odt [Zofran ODT] 4 mg PO Q8H PRN 7 Days #21 tab 08/28/20 [Rx] Follow up Appointment(s)/Referral(s): Jewell Bui MD [Primary Care Provider] - 09/05/20 9:10 am Lavonne Flores MD [STAFF PHYSICIAN] - 09/04/20 9:30 am Patient Instructions/Handouts: Acute Nausea and Vomiting (ED) Activity/Diet/Wound Care/Special Instructions: Regular diet Activity is limited until you see your doctor Discharge Disposition: HOME SELF-CARE
== END 2020-08-28 16:32 | disposition home or self-care (01) ==
LOC: EC 04:24 → 1SOBS 06:22
PROVIDERS: ADMIT Hospitalist; ATTEND Hospitalist
DX: K52.9 Noninfective gastroenteritis and colitis, unspecified (principal); N39.0 Urinary tract infection, site not specified; B96.89 Other specified bacterial agents as the cause of diseases classified elsewhere; N17.0 Acute kidney failure with tubular necrosis; K31.84 Gastroparesis; E78.5 Hyperlipidemia, unspecified; E83.52 Hypercalcemia; N18.30 Chronic kidney disease, stage 3 unspecified; M47.899 Other spondylosis, site unspecified; G89.29 Other chronic pain; M54.5 Low back pain; D64.9 Anemia, unspecified; K21.00 Gastro-esophageal reflux disease with esophagitis, without bleeding; K64.9 Unspecified hemorrhoids; M51.9 Unspecified thoracic, thoracolumbar and lumbosacral intervertebral disc disorder; F41.9 Anxiety disorder, unspecified; F32.9 Major depressive disorder, single episode, unspecified; F17.200 Nicotine dependence, unspecified, uncomplicated; Z88.2 Allergy status to sulfonamides; Z87.448 Personal history of other diseases of urinary system; Z87.19 Personal history of other diseases of the digestive system; Z87.39 Personal history of other diseases of the musculoskeletal system and connective tissue; Z86.69 Personal history of other diseases of the nervous system and sense organs; Z90.49 Acquired absence of other specified parts of digestive tract; Z98.51 Tubal ligation status; Z98.890 Other specified postprocedural states; Z79.899 Other long term (current) drug therapy; Z80.3 Family history of malignant neoplasm of breast; Z81.1 Family history of alcohol abuse and dependence; Z81.8 Family history of other mental and behavioral disorders; Z82.0 Family history of epilepsy and other diseases of the nervous system
CPT/HCPCS: 96361 ×3; 96365; 96372 ×2; 96375 ×2; 96376 ×2; 99284; 36415; 80053; 80048; 83690; 85025 ×2; 85027; 81001; 87040; 80306; 87086; G0378 ×2; S4990 ×2; J2270; J1200; J1644 ×2; J2765; J2405 ×2; J0696; C9113 ×2; J1170 ×2

== ENCOUNTER 2020-10-05 03:41 | Observation (INO) | payer MEDICARE ==
[2020-10-05] MEDS ORDERED: METOCLOPRAMIDE 5 MG/ML 2 ML VIAL IVP STA (03:54)
[2020-10-05] MEDS ORDERED: SODIUM CHLORIDE 0.9% 500 ML 500 ML IV STA (03:54)
[2020-10-05] MEDS ORDERED: diphenhydrAMINE 50 MG/ML 1 ML VIAL IVP STA ×2 (04:04→05:42)
[2020-10-05] MEDS ORDERED: HYDROmorphone 0.5 MG/0.5 ML SYRINGE IVP STA ×2 (04:04→05:42)
--- NOTE | 2020-10-05 04:08 | ED ---
Abdominal Pain HPI - General Chief Complaint: Abdominal Pain Stated Complaint: Vomiting Time Seen by Provider: 10/05/20 03:53 Source: patient Mode of arrival: wheelchair - History of Present Illness Initial Comments: Patient's 40-year-old woman with history of gastroparesis who presents with complaint that she believes she is having an exacerbation of the same. The patient states that around 7 AM she started having some nausea which progressed to vomiting and subsequently having epigastric pain. She has not noted any blood or coffee-ground material. No change in bowel movements or urination. MD Complaint: abdominal pain Onset/Timin -: hour(s) Location: epigastric Radiation: none Severity: severe Quality: cramping, aching Improves With: nothing Worsens With: nothing Associated Symptoms: nausea, vomiting - Related Data Previous Rx's Medication Instructions Recorded Pantoprazole Sodium [Protonix] 40 mg PO DAILY #30 tablet. 08/27/20 Cefuroxime Axetil [Ceftin] 500 mg PO BID 7 Days #14 tab 08/28/20 Hydrocortisone Suppository 25 mg RECTAL DAILY supp 08/28/20 [Anusol-Hc] Nicotine 14Mg/24Hr Patch [Habitrol] 1 patch TRANSDERM DAILY #10 patch 08/28/20 Ondansetron Odt [Zofran ODT] 4 mg PO Q8H PRN 7 Days #21 tab 08/28/20 Allergies Allergy/AdvReac Type Severity Reaction Status Date / Time sulfamethoxazole Allergy Rash/Hives Verified 08/27/20 06:50 [From Bactrim] trimethoprim [From Bactrim] Allergy Rash/Hives Verified 08/27/20 06:50 Review of Systems ROS Statement: Those systems with pertinent positive or pertinent negative responses have been documented in the HPI. ROS Other: All systems not noted in ROS Statement are negative. Constitutional: Denies: fever, chills Respiratory: Denies: cough, dyspnea Cardiovascular: Denies: chest pain, palpitations, edema Gastrointestinal: Reports: abdominal pain, nausea, vomiting, constipation. Denies: diarrhea, melena, hematochezia Genitourinary: Denies: dysuria, hematuria Musculoskeletal: Denies: back pain Skin: Denies: rash Neurological: Denies: headache, weakness, numbness Past Medical History Past Medical History: GERD/Reflux, Hyperlipidemia, Renal Disease Additional Past Medical History / Comment(s): Gastroparesis, gastritis, esophageal tears, chronic low back pain, herniated lower discs, bilateral wrist tendonitis with R side worse, R shoulder pain past couple months, numbness to bilateral hand fingers when first wakes, migraines, instructed to sleep with HOB up 6 inches d/t heart rate dropping with sleep, vertigo, pyelonephritis, History of Any Multi-Drug Resistant Organisms: None Reported Past Surgical History: Appendectomy, Tubal Ligation Additional Past Surgical History / Comment(s): Botox injection "mouth" of stomach-R/T SPASMS , EGDs, colonoscopy, vaginal cyst drained. Past Anesthesia/Blood Transfusion Reactions: No Reported Reaction Additional Past Anesthesia/Blood Transfusion Reaction / Comment(s): never had blood transfusion. Past Psychological History: Anxiety, Depression Smoking Status: Current every day smoker Past Alcohol Use History: None Reported Past Drug Use History: Marijuana - Past Family History Mother Family Medical History: Cancer Additional Family Medical History / Comment(s): Mother is living. She has had breast cancer and 2 back surgeries. Father Family Medical History: No Reported History Additional Family Medical History / Comment(s): Father had ETOH abuse and was manic depressive. He after a fall where he fractured his back then "drank" himself to . Brother(s) Family Medical History: Neurologic Disorder Sister(s) Family Medical History: No Reported History Son(s) Family Medical History: No Reported History Daughter(s) Family Medical History: No Reported History General Exam General appearance: alert, in no apparent distress, anxious Head exam: Present: atraumatic, normocephalic Eye exam: Present: normal appearance ENT exam: Present: mucous membranes dry Respiratory exam: Present: normal lung sounds bilaterally. Absent: respiratory distress, wheezes, rales, rhonchi, stridor Cardiovascular Exam: Present: regular rate, normal rhythm, normal heart sounds. Absent: systolic murmur, diastolic murmur, rubs, gallop GI/Abdominal exam: Present: soft, hypoactive bowel sounds. Absent: distended, tenderness, guarding, rebound, rigid, mass, pulsatile mass Extremities exam: Present: normal inspection, normal capillary refill. Absent: pedal edema, calf tenderness Back exam: Present: normal inspection. Absent: CVA tenderness (R), CVA tenderness (L) Neurological exam: Present: alert Skin exam: Present: warm, dry, intact, normal color. Absent: rash Course Vital Signs 10/05/20 03:46 Temperature 98.1 F Pulse Rate 91 Respiratory 18 Rate Blood Pressure 127/90 O2 Sat by Pulse 97 Oximetry Medical Decision Making - Lab Data Result diagrams: 10/05/20 04:14 10/05/20 04:14 Lab Results 10/05/20 10/05/20 10/05/20 Range/Units 04:14 04:14 04:14 WBC 17.7 H (3.8-10.6) k/uL RBC 4.51 (3.80-5.40) m/uL Hgb 15.1 D (11.4-16.0) gm/dL Hct 44.7 (34.0-46.0) % MCV 99.1 (80.0-100.0) fL MCH 33.6 (25.0-35.0) pg MCHC 33.9 (31.0-37.0) g/dL RDW 11.9 (11.5-15.5) % Plt Count 479 H (150-450) k/uL MPV 7.7 Neutrophils % 90 % Lymphocytes % 6 % Monocytes % 2 % Eosinophils % 1 % Basophils % 0 % Neutrophils # 15.9 H (1.3-7.7) k/uL Lymphocytes # 1.0 (1.0-4.8) k/uL Monocytes # 0.4 (0-1.0) k/uL Eosinophils # 0.2 (0-0.7) k/uL Basophils # 0.1 (0-0.2) k/uL Sodium 142 (137-145) mmol/L Potassium 4.4 (3.5-5.1) mmol/L Chloride 105 (98-107) mmol/L Carbon Dioxide 18 L (22-30) mmol/L Anion Gap 19 mmol/L BUN 13 (7-17) mg/dL Creatinine 0.89 (0.52-1.04) mg/dL Est GFR (CKD-EPI)AfAm >90 (>60 ml/min/1.73 sqM) Est GFR (CKD-EPI)NonAf 81 (>60 ml/min/1.73 sqM) Glucose 207 H (74-99) mg/dL Calcium 10.8 H (8.4-10.2) mg/dL Total Bilirubin 0.8 (0.2-1.3) mg/dL AST 23 (14-36) U/L ALT 18 (4-34) U/L Alkaline Phosphatase 90 (38-126) U/L Total Protein 9.2 H (6.3-8.2) g/dL Albumin 5.4 H (3.5-5.0) g/dL Amylase 48 (30-110) U/L Lipase 27 (23-300) U/L Urine Color Yellow Urine Appearance Cloudy H (Clear) Urine pH 5.5 (5.0-8.0) Ur Specific [place] 1.029 (1.001-1.035) Urine Protein 1+ H (Negative) Urine Glucose (UA) Trace H (Negative) Urine Ketones 1+ H (Negative) Urine Blood Moderate H (Negative) Urine Nitrite Negative (Negative) Urine Bilirubin Negative (Negative) Urine Urobilinogen <2.0 (<2.0) mg/dL Ur Leukocyte Esterase Negative (Negative) Urine RBC 5 (0-5) /hpf Urine WBC 2 (0-5) /hpf Ur Squamous Epith Cells 5 H (0-4) /hpf Hyaline Casts 474 H (0-2) /lpf Urine Mucus Many H (None) /hpf Urine HCG, Qual (Not Detectd) 10/05/20 Range/Units 04:14 WBC (3.8-10.6) k/uL RBC (3.80-5.40) m/uL Hgb (11.4-16.0) gm/dL Hct (34.0-46.0) % MCV (80.0-100.0) fL MCH (25.0-35.0) pg MCHC (31.0-37.0) g/dL RDW (11.5-15.5) % Plt Count (150-450) k/uL MPV Neutrophils % % Lymphocytes % % Monocytes % % Eosinophils % % Basophils % % Neutrophils # (1.3-7.7) k/uL Lymphocytes # (1.0-4.8) k/uL Monocytes # (0-1.0) k/uL Eosinophils # (0-0.7) k/uL Basophils # (0-0.2) k/uL Sodium (137-145) mmol/L Potassium (3.5-5.1) mmol/L Chloride (98-107) mmol/L Carbon Dioxide (22-30) mmol/L Anion Gap mmol/L BUN (7-17) mg/dL Creatinine (0.52-1.04) mg/dL Est GFR (CKD-EPI)AfAm (>60 ml/min/1.73 sqM) Est GFR (CKD-EPI)NonAf (>60 ml/min/1.73 sqM) Glucose (74-99) mg/dL Calcium (8.4-10.2) mg/dL Total Bilirubin (0.2-1.3) mg/dL AST (14-36) U/L ALT (4-34) U/L Alkaline Phosphatase (38-126) U/L Total Protein (6.3-8.2) g/dL Albumin (3.5-5.0) g/dL Amylase (30-110) U/L Lipase (23-300) U/L Urine Color Urine Appearance (Clear) Urine pH (5.0-8.0) Ur Specific [place] (1.001-1.035) Urine Protein (Negative) Urine Glucose (UA) (Negative) Urine Ketones (Negative) Urine Blood (Negative) Urine Nitrite (Negative) Urine Bilirubin (Negative) Urine Urobilinogen (<2.0) mg/dL Ur Leukocyte Esterase (Negative) Urine RBC (0-5) /hpf Urine WBC (0-5) /hpf Ur Squamous Epith Cells (0-4) /hpf Hyaline Casts (0-2) /lpf Urine Mucus (None) /hpf Urine HCG, Qual Not Detected (Not Detectd) Disposition Clinical Impression: Gastroparesis, Abdominal pain Disposition: ADMITTED IP TO THIS HOSP Condition: Fair Instructions (If sedation given, give patient instructions): Abdominal Pain (ED) Is patient prescribed a controlled substance at d/c from ED?: No Referrals: Jewell Bui MD [Primary Care Provider] - 1-2 days
[2020-10-05 04:24] LABS: Basophils # (A) 0.1 k/uL (0-0.2); Basophils % (A) 0 %; Eosinophils # (A) 0.2 k/uL (0-0.7); Eosinophils % (A) 1 %; HCT 44.7 % (34.0-46.0); Lymphocytes % (A) 6 %; MCH 33.6 pg (25.0-35.0); MCHC 33.9 g/dL (31.0-37.0); MCV 99.1 fL (80.0-100.0); Mean Platelet Volume 7.7; Monocytes # (A) 0.4 k/uL (0-1.0); Monocytes % (A) 2 %; Neutrophils # (A) 15.9 k/uL (1.3-7.7); Neutrophils % (A) 90 %; Platelet Count 479 k/uL (150-450); RBC 4.51 m/uL (3.80-5.40); RDW 11.9 % (11.5-15.5); WBC 17.7 k/uL (3.8-10.6)
[2020-10-05 04:33] LABS: AST 23 U/L (14-36); African American GFR (CKD) >90 (>60 ml/min/1.73 sqM); Albumin 5.4 g/dL (3.5-5.0); Alkaline Phosphatase 90 U/L (38-126); Amylase 48 U/L (30-110); Anion Gap 19 mmol/L; Blood Urea Nitrogen 13 mg/dL (7-17); Calcium 10.8 mg/dL (8.4-10.2); Carbon Dioxide 18 mmol/L (22-30); Chloride 105 mmol/L (98-107); Glucose 207 mg/dL (74-99); Lipase 27 U/L (23-300); Non-African American GFR(CKD) 81 (>60 ml/min/1.73 sqM); Potassium 4.4 mmol/L (3.5-5.1); Sodium 142 mmol/L (137-145); Total Bilirubin 0.8 mg/dL (0.2-1.3); Total Protein 9.2 g/dL (6.3-8.2)
[2020-10-05 04:40] LABS: ALT 18 U/L (4-34)
[2020-10-05 04:49] LABS: HGB 15.1 gm/dL (11.4-16.0)
[2020-10-05] MEDS ORDERED: SODIUM CHLORIDE 0.9% 1,000 ML IV ONE (05:42)
[2020-10-05 05:53] LABS: Appearance,Urine Cloudy (Clear); Bilirubin,Urine Negative (Negative); Blood,Urine Moderate (Negative); Color,Urine Yellow; Glucose,Urine (UA) Trace (Negative); Hyaline Casts,Urine 474 /lpf (0-2); Ketones,Urine 1+ (Negative); Leukocyte Esterase,Urine Negative (Negative); Mucus,Urine Many /hpf; Nitrite,Urine Negative (Negative); PH, Urine 5.5 (5.0-8.0); Protein,Urine 1+ (Negative); RBC,Urine 5 /hpf (0-5); Specific Gravity,Urine 1.029 (1.001-1.035); Squamous Epithelial Cell,Urine 5 /hpf (0-4); Urobilinogen,Urine <2.0 mg/dL (<2.0); WBC,Urine 2 /hpf (0-5)
[2020-10-05] MEDS ORDERED: PROMETHAZINE INJ 25 MG in SODIUM CHLORIDE 0.9% 50 ML IVPB ONE (06:00)
[2020-10-05] MEDS ORDERED: NALOXONE 0.4 MG/ML 1 ML VIAL IV PRN (06:44)
[2020-10-05] MEDS ORDERED: ACETAMINOPHEN TAB 325 MG TAB PO PRN (06:44)
[2020-10-05] MEDS ORDERED: HYDROmorphone 0.5 MG/0.5 ML SYRINGE IVP PRN (06:44)
[2020-10-05] MEDS ORDERED: SODIUM CHLORIDE 0.9% 1,000 ML IV SCH (06:45)
[2020-10-05] MEDS ORDERED: PANTOPRAZOLE 40 MG TABLET PO SCH (07:30)
[2020-10-05] MEDS ORDERED: FAMOTIDINE 20 MG TAB PO SCH (09:00)
[2020-10-05] MEDS: ONDANSETRON 4 MG/2 ML VIAL IVP PRN ×2 (09:52→17:12)
--- NOTE | 2020-10-05 11:20 | P.HPIM ---
History of Present Illness Patient is a pleasant 40-year-old female came in with comments of nausea vomiting. Patient has known history of gastroparesis. Patient was having intractable nausea vomiting which improved patient presently has little nausea wanted to try diet patient was started on clear liquid diet will advance it to soft diet and if she is able to tolerate the patient will be discharged. She denied any history of blood disorders although her blood sugars are round bit elevated patient had hemoglobin A1c of 5.3 in month of December this year. We will repeat hemoglobin A1c again. Patient follows up with gastroenterology as an outpatient.Patient doesn't have UTI symptoms of pneumonia symptoms patient does have leukocytosis which is reactive in nature. Review of Systems REVIEW OF SYSTEMS: CONSTITUTIONAL: No fever, no malaise, no fatigue. HEENT: No recent visual problems or hearing problems. Denied any sore throat. CARDIOVASCULAR: No chest pain, orthopnea, PND, no palpitations, no syncope. PULMONARY: No shortness of breath, no cough, no hemoptysis. GASTROINTESTINAL: As mentioned in HPI NEUROLOGICAL: No headaches, no weakness, no numbness. HEMATOLOGICAL: Denies any bleeding or petechiae. GENITOURINARY: Denies any burning micturition, frequency, or urgency. MUSCULOSKELETAL/RHEUMATOLOGICAL: Denies any joint pain, swelling, or any muscle pain. ENDOCRINE: Denies any polyuria or polydipsia. The rest of the 14-point review of systems is negative. Past Medical History Past Medical History: GERD/Reflux, Hyperlipidemia, Renal Disease Additional Past Medical History / Comment(s): Gastroparesis, gastritis, esophageal tears, chronic low back pain, herniated lower discs, bilateral wrist tendonitis with R side worse, R shoulder pain past couple months, numbness to bilateral hand fingers when first wakes, migraines, instructed to sleep with HOB up 6 inches d/t heart rate dropping with sleep, vertigo, pyelonephritis, History of Any Multi-Drug Resistant Organisms: None Reported Past Surgical History: Appendectomy, Tubal Ligation Additional Past Surgical History / Comment(s): Botox injection "mouth" of stomach-R/T SPASMS , EGDs, colonoscopy, vaginal cyst drained. Past Anesthesia/Blood Transfusion Reactions: No Reported Reaction Additional Past Anesthesia/Blood Transfusion Reaction / Comment(s): never had blood transfusion. Past Psychological History: Anxiety, Depression Additional Psychological History / Comment(s): Pt resides with spouse and children. She is independent. Smoking Status: Current every day smoker Past Alcohol Use History: None Reported Additional Past Alcohol Use History / Comment(s): Pt started smoking in 1993 and smokes between 1-1.5 ppd. Past Drug Use History: Marijuana Additional Drug Use History / Comment(s): patient states she smoked marijuana last 10/04/20 - Past Family History Mother Family Medical History: Cancer Additional Family Medical History / Comment(s): Mother is living. She has had breast cancer and 2 back surgeries. Father Family Medical History: No Reported History Additional Family Medical History / Comment(s): Father had ETOH abuse and was manic depressive. He after a fall where he fractured his back then "drank" himself to . Brother(s) Family Medical History: Neurologic Disorder Sister(s) Family Medical History: No Reported History Son(s) Family Medical History: No Reported History Daughter(s) Family Medical History: No Reported History Medications and Allergies Home Medications Medication Instructions Recorded Confirmed Type Pantoprazole Sodium [Protonix] 40 mg PO DAILY #30 tablet.dr 08/27/20 10/05/20 Rx Ondansetron Odt [Zofran ODT] 4 mg PO Q8H PRN 7 Days #21 tab 08/28/20 10/05/20 Rx Allergies Allergy/AdvReac Type Severity Reaction Status Date / Time sulfamethoxazole Allergy Rash/Hives Verified 10/05/20 07:15 [From Bactrim] trimethoprim [From Bactrim] Allergy Rash/Hives Verified 10/05/20 07:15 Physical Exam Vitals: Vital Signs Temp Pulse Pulse Resp BP BP Pulse Ox 10/05/20 07:17 97.4 F L 77 18 104/62 97 10/05/20 03:46 98.1 F 91 18 127/90 97 Intake and Output 10/04/20 10/05/20 10/05/20 22:59 06:59 14:59 Other: Weight 61.235 kg PHYSICAL EXAMINATION: GENERAL: The patient is alert and oriented x3, not in any acute distress. Well developed, well nourished. HEENT: Pupils are round and equally reacting to light. EOMI. No scleral icterus. No conjunctival pallor. Normocephalic, atraumatic. No pharyngeal erythema. No thyromegaly. CARDIOVASCULAR: S1 and S2 present. No murmurs, rubs, or gallops. PULMONARY: Chest is clear to auscultation, no wheezing or crackles. ABDOMEN: Soft, nontender, nondistended, normoactive bowel sounds. No palpable organomegaly. MUSCULOSKELETAL: No joint swelling or deformity. EXTREMITIES: No cyanosis, clubbing, or pedal edema. NEUROLOGICAL: Gross neurological examination did not reveal any focal deficits. SKIN: No rashes. Results CBC & Chem 7: 10/05/20 04:14 10/05/20 04:14 Labs: Abnormal Lab Results - Last 24 Hours (Table) 10/05/20 10/05/20 10/05/20 Range/Units 04:14 04:14 04:14 WBC 17.7 H (3.8-10.6) k/uL Plt Count 479 H (150-450) k/uL Neutrophils # 15.9 H (1.3-7.7) k/uL Carbon Dioxide 18 L (22-30) mmol/L Glucose 207 H (74-99) mg/dL Calcium 10.8 H (8.4-10.2) mg/dL Total Protein 9.2 H (6.3-8.2) g/dL Albumin 5.4 H (3.5-5.0) g/dL Urine Appearance Cloudy H (Clear) Urine Protein 1+ H (Negative) Urine Glucose (UA) Trace H (Negative) Urine Ketones 1+ H (Negative) Urine Blood Moderate H (Negative) Ur Squamous Epith Cells 5 H (0-4) /hpf Hyaline Casts 474 H (0-2) /lpf Urine Mucus Many H (None) /hpf Thrombosis Risk Factor Assmnt - Choose All That Apply Any of the Below Risk Factors Present?: Yes Each Factor Represents 1 point: Age 41-60 years Other Risk Factors: No Other congenital or acquired thrombophilia - If yes, enter type in comment: No Thrombosis Risk Factor Assessment Total Risk Factor Score: 1 Thrombosis Risk Factor Assessment Level: Low Risk Assessment and Plan Plan: -Intractable nausea vomiting: Secondary to gastroparesis etiology of gastro- paresis is not clear. We will obtain hemoglobin A1c as mentioned above and blood sugars are bit elevated. Continue with the Protonix and Zofran. Patient didn't tolerate Reglan in the past. Advance her diet if patient is doing well patient will be discharged today. Started with the liquid diet advance to soft diet. -Leukocytosis reactive no evidence of infection at this time. -Glucosuria: Hemoglobin A1c as mentioned above DVT prophylaxis: Early ambulation
--- NOTE | 2020-10-05 11:20 | P.DS ---
Providers Date of admission: 10/05/20 06:46 Attending physician: Etta Valentine Primary care physician: Ramya Corcoran [facility] Course: As mentioned in HPI Patient Condition at Discharge: Fair Plan - Discharge Summary Discharge Rx Participant: No New Discharge Prescriptions: Continue Pantoprazole Sodium [Protonix] 40 mg PO DAILY #30 tablet. Ondansetron Odt [Zofran ODT] 4 mg PO Q8H PRN 7 Days #21 tab PRN Reason: Nausea Discharge Medication List Pantoprazole Sodium [Protonix] 40 mg PO DAILY #30 tablet. 08/27/20 [Rx] Ondansetron Odt [Zofran ODT] 4 mg PO Q8H PRN 7 Days #21 tab 08/28/20 [Rx] Follow up Appointment(s)/Referral(s): Jewell Bui MD [Primary Care Provider] - 3 Days Patient Instructions/Handouts: Abdominal Pain (ED)
[2020-10-05 16:32] VITALS: BP 93/53; PULSE 62; RESP 16; TEMP 98.2
== END 2020-10-05 17:40 | disposition home or self-care (01) ==
LOC: EC 03:41 → 1SOBS 06:46
PROVIDERS: ADMIT Hospitalist; ATTEND Hospitalist
DX: K31.84 Gastroparesis (principal); Z79.899 Other long term (current) drug therapy; Z88.2 Allergy status to sulfonamides; K21.9 Gastro-esophageal reflux disease without esophagitis; E78.5 Hyperlipidemia, unspecified; N28.9 Disorder of kidney and ureter, unspecified; G89.29 Other chronic pain; M54.5 Low back pain; Z87.19 Personal history of other diseases of the digestive system; M51.26 Other intervertebral disc displacement, lumbar region; R20.0 Anesthesia of skin; G43.909 Migraine, unspecified, not intractable, without status migrainosus; R42 Dizziness and giddiness; Z98.51 Tubal ligation status; Z98.890 Other specified postprocedural states; F41.9 Anxiety disorder, unspecified; F32.9 Major depressive disorder, single episode, unspecified; F17.200 Nicotine dependence, unspecified, uncomplicated; Z80.3 Family history of malignant neoplasm of breast; Z81.1 Family history of alcohol abuse and dependence
CPT/HCPCS: 96375 ×2; 96376 ×2; 96365; 99284; 36415; 80053; 82150; 83690; 85025; 81001; 81025; G0378; J1200; J2550; J2765; J2405; J1170

== ENCOUNTER 2020-10-23 16:16 | Emergency (ER) | payer MEDICARE ==
[2020-10-23 16:48] VITALS: BP 129/77; PULSE 111; RESP 18; TEMP 98.8
[2020-10-23] MEDS ORDERED: SODIUM CHLORIDE 0.9% 1,000 ML IV STA (17:51)
[2020-10-23] MEDS ORDERED: SODIUM CHLORIDE 0.9% 500 ML 500 ML IV STA (17:51)
[2020-10-23] MEDS ORDERED: PROCHLORPERAZINE INJ 10 MG/2 ML VIAL IVP STA (17:52)
[2020-10-23 17:53] LABS: Basophils % (A) 0 %; Eosinophils # (A) 0.1 k/uL (0-0.7); Eosinophils % (A) 1 %; HCT 44.8 % (34.0-46.0); HGB 14.5 gm/dL (11.4-16.0); Lymphocytes # (A) 1.5 k/uL (1.0-4.8); Lymphocytes % (A) 13 %; MCH 32.5 pg (25.0-35.0); MCHC 32.3 g/dL (31.0-37.0); MCV 100.7 fL (80.0-100.0); Mean Platelet Volume 7.2; Monocytes # (A) 0.3 k/uL (0-1.0); Monocytes % (A) 2 %; Neutrophils # (A) 10.2 k/uL (1.3-7.7); Neutrophils % (A) 83 %; Platelet Count 484 k/uL (150-450); RBC 4.45 m/uL (3.80-5.40); RDW 12.2 % (11.5-15.5); WBC 12.2 k/uL (3.8-10.6)
[2020-10-23] MEDS ORDERED: DIAZEPAM 5 MG/ML 2 ML INJ IVP STA (17:54)
--- NOTE | 2020-10-23 17:56 | ED ---
General Adult HPI - General Chief complaint: Nausea/Vomiting/Diarrhea Stated complaint: NVD Time Seen by Provider: 10/23/20 16:45 Source: patient, RN notes reviewed, old records reviewed Mode of arrival: wheelchair Limitations: no limitations - History of Present Illness Initial comments: This is a 40-year-old female with past medical history significant for gastroparesis. Patient states it occurs every time she seems to have her period. Patient states she started vomiting yesterday and she comes in today because she is still nauseated and keep anything down and he continues to vomit. Patient states her abdomen hurts because it is sore from the vomiting. There is no point tenderness. Patient denies any diarrhea. Patient denies any difficulty breathing or chest pain. Patient denies any recent fever chills per patient states this is typically what happens to her every month. - Related Data Home Medications Medication Instructions Recorded Confirmed Albuterol Nebulized [Ventolin 2.5 mg INHALATION RT-QID PRN 10/23/20 10/23/20 Nebulized] Ondansetron Odt [Zofran ODT] 8 mg PO BID 10/23/20 10/23/20 Previous Rx's Medication Instructions Recorded Pantoprazole Sodium [Protonix] 40 mg PO DAILY #30 tablet. 08/27/20 Allergies Allergy/AdvReac Type Severity Reaction Status Date / Time sulfamethoxazole Allergy Rash/Hives Verified 10/23/20 19:21 [From Bactrim] trimethoprim [From Bactrim] Allergy Rash/Hives Verified 10/23/20 19:21 Review of Systems ROS Statement: Those systems with pertinent positive or pertinent negative responses have been documented in the HPI. ROS Other: All systems not noted in ROS Statement are negative. Past Medical History Past Medical History: GERD/Reflux, Hyperlipidemia, Renal Disease Additional Past Medical History / Comment(s): Gastroparesis, gastritis, esophageal tears, chronic low back pain, herniated lower discs, bilateral wrist tendonitis with R side worse, R shoulder pain past couple months, numbness to bilateral hand fingers when first wakes, migraines, instructed to sleep with HOB up 6 inches d/t heart rate dropping with sleep, vertigo, pyelonephritis, History of Any Multi-Drug Resistant Organisms: None Reported Past Surgical History: Appendectomy, Tubal Ligation Additional Past Surgical History / Comment(s): Botox injection "mouth" of stomach-R/T SPASMS , EGDs, colonoscopy, vaginal cyst drained. Past Anesthesia/Blood Transfusion Reactions: No Reported Reaction Additional Past Anesthesia/Blood Transfusion Reaction / Comment(s): never had blood transfusion. Past Psychological History: Anxiety, Depression Smoking Status: Current every day smoker Past Alcohol Use History: None Reported Past Drug Use History: Marijuana - Past Family History Mother Family Medical History: Cancer Additional Family Medical History / Comment(s): Mother is living. She has had breast cancer and 2 back surgeries. Father Family Medical History: No Reported History Additional Family Medical History / Comment(s): Father had ETOH abuse and was manic depressive. He after a fall where he fractured his back then "drank" himself to . Brother(s) Family Medical History: Neurologic Disorder Sister(s) Family Medical History: No Reported History Son(s) Family Medical History: No Reported History Daughter(s) Family Medical History: No Reported History General Exam - General Exam Comments Initial Comments: GENERAL: Patient is well-developed and well-nourished. Patient is nontoxic and well- hydrated and is in mild distress. ENT: Neck is soft and supple. No significant lymphadenopathy is noted. Oropharynx is clear. Moist mucous membranes. Neck has full range of motion without elic iting any pain. EYES: The sclera were anicteric and conjunctiva were pink and moist. Extraocular movements were intact and pupils were equal round and reactive to light. Eyelids were unremarkable. PULMONARY: Unlabored respirations. Good breath sounds bilaterally. No audible rales rhonchi or wheezing was noted. CARDIOVASCULAR: There is a regular rate and rhythm without any murmurs gallops or rubs. ABDOMEN: Soft and nontender with normal bowel sounds. SKIN: Skin is clear with no lesions or rashes and otherwise unremarkable. NEUROLOGIC: Patient is alert and oriented x3. Cranial nerves II through XII are grossly intact. Motor and sensory are also intact. Normal speech, volume and content. Symmetrical smile. MUSCULOSKELETAL: Normal extremities with adequate strength and full range of motion. No lower extremity swelling or edema. No calf tenderness. LYMPHATICS: No significant lymphadenopathy is noted PSYCHIATRIC: Normal psychiatric evaluation. Limitations: no limitations Course Vital Signs 10/23/20 16:43 Temperature 98.8 F Pulse Rate 111 H Respiratory 18 Rate Blood Pressure 129/77 O2 Sat by Pulse 98 Oximetry Medical Decision Making - Medical Decision Making Patient was given Reglan and Valium. Patient was sleeping for most of her ED stay. When she woke up she was spitting up saliva and insisted she was still n auseated. I gave her some Zofran and discharge patient home. At no time was the patient having any abdominal pain. Patient on multiple occasions was requesting narcotics. - Lab Data Result diagrams: 10/23/20 17:42 10/23/20 17:42 Lab Results 10/23/20 10/23/20 Range/Units 17:42 17:42 WBC 12.2 H (3.8-10.6) k/uL RBC 4.45 (3.80-5.40) m/uL Hgb 14.5 (11.4-16.0) gm/dL Hct 44.8 (34.0-46.0) % MCV 100.7 H (80.0-100.0) fL MCH 32.5 (25.0-35.0) pg MCHC 32.3 (31.0-37.0) g/dL RDW 12.2 (11.5-15.5) % Plt Count 484 H (150-450) k/uL MPV 7.2 Neutrophils % 83 % Lymphocytes % 13 % Monocytes % 2 % Eosinophils % 1 % Basophils % 0 % Neutrophils # 10.2 H (1.3-7.7) k/uL Lymphocytes # 1.5 (1.0-4.8) k/uL Monocytes # 0.3 (0-1.0) k/uL Eosinophils # 0.1 (0-0.7) k/uL Basophils # 0.0 (0-0.2) k/uL Sodium 141 (137-145) mmol/L Potassium 4.3 (3.5-5.1) mmol/L Chloride 108 H (98-107) mmol/L Carbon Dioxide 22 (22-30) mmol/L Anion Gap 11 mmol/L BUN 12 (7-17) mg/dL Creatinine 0.67 (0.52-1.04) mg/dL Est GFR (CKD-EPI)AfAm >90 (>60 ml/min/1.73 sqM) Est GFR (CKD-EPI)NonAf >90 (>60 ml/min/1.73 sqM) Glucose 156 H (74-99) mg/dL Calcium 10.3 H (8.4-10.2) mg/dL Total Bilirubin 0.6 (0.2-1.3) mg/dL AST 20 (14-36) U/L ALT 13 (4-34) U/L Alkaline Phosphatase 79 (38-126) U/L Total Protein 8.5 H (6.3-8.2) g/dL Albumin 5.0 (3.5-5.0) g/dL Amylase 57 (30-110) U/L Lipase 47 (23-300) U/L Disposition Clinical Impression: Gastroparesis, Drug-seeking behavior Disposition: HOME SELF-CARE Condition: Good Instructions (If sedation given, give patient instructions): Acute Nausea and Vomiting (ED) Is patient prescribed a controlled substance at d/c from ED?: No Referrals: Jewell Bui MD [Primary Care Provider] - 1-2 days Time of Disposition: 19:49
[2020-10-23 18:03] LABS: ALT 13 U/L (4-34); AST 20 U/L (14-36); African American GFR (CKD) >90 (>60 ml/min/1.73 sqM); Alkaline Phosphatase 79 U/L (38-126); Amylase 57 U/L (30-110); Anion Gap 11 mmol/L; Blood Urea Nitrogen 12 mg/dL (7-17); Calcium 10.3 mg/dL (8.4-10.2); Carbon Dioxide 22 mmol/L (22-30); Chloride 108 mmol/L (98-107); Glucose 156 mg/dL (74-99); Lipase 47 U/L (23-300); Non-African American GFR(CKD) >90 (>60 ml/min/1.73 sqM); Potassium 4.3 mmol/L (3.5-5.1); Sodium 141 mmol/L (137-145); Total Bilirubin 0.6 mg/dL (0.2-1.3); Total Protein 8.5 g/dL (6.3-8.2)
[2020-10-23] MEDS ORDERED: ONDANSETRON 4 MG/2 ML VIAL IVP STA (19:58)
== END 2020-10-23 20:11 | disposition home or self-care (01) ==
LOC: EC 16:16
DX: K31.84 Gastroparesis (principal); F17.200 Nicotine dependence, unspecified, uncomplicated; Z79.899 Other long term (current) drug therapy; Z88.2 Allergy status to sulfonamides; Z88.1 Allergy status to other antibiotic agents; Z90.89 Acquired absence of other organs; Z76.5 Malingerer [conscious simulation]
CPT/HCPCS: 80053; 82150; 83690; 85025; 99284; 96374; 96375 ×2; 96361; J0780; J3360; J2405

== ENCOUNTER 2020-10-25 14:21 | Observation (INO) | payer MEDICARE ==
[2020-10-25] MEDS ORDERED: SODIUM CHLORIDE 0.9% 1,000 ML IV STA (14:38)
[2020-10-25] MEDS ORDERED: PANTOPRAZOLE 40 MG/10 ML VIAL IVP STA (14:38)
[2020-10-25] MEDS ORDERED: ONDANSETRON 4 MG/2 ML VIAL IVP STA (14:38)
--- NOTE | 2020-10-25 14:38 | ED ---
General Adult HPI - General Stated complaint: Vomiting Time Seen by Provider: 10/25/20 14:26 - History of Present Illness Initial comments: 40-year-old female with history of gastroparesis presenting to emergency Department with a chief complaint of nausea vomiting abdominal pain. Patient states she was recently evaluated in the emergency department and discharged. He states now the pain has returned and is located in the epigastric region. States she is not able to control her vomiting. Reports multiple episodes of non-bilious and nonbloody vomiting. Continues to be nauseous. Reports she took [place] at home was not able to keep it down. States that she got the [place] off the street. - Related Data Home Medications Medication Instructions Recorded Confirmed Albuterol Nebulized [Ventolin 2.5 mg INHALATION RT-QID PRN 10/23/20 10/25/20 Nebulized] Ondansetron Odt [Zofran ODT] 8 mg PO BID 10/23/20 10/25/20 [place] (Unknown Strength) 0.5 tab PO ONCE PRN 10/25/20 10/25/20 Previous Rx's Medication Instructions Recorded Pantoprazole Sodium [Protonix] 40 mg PO DAILY #30 tablet. 08/27/20 Allergies Allergy/AdvReac Type Severity Reaction Status Date / Time sulfamethoxazole Allergy Rash/Hives Verified 10/25/20 15:59 [From Bactrim] trimethoprim [From Bactrim] Allergy Rash/Hives Verified 10/25/20 15:59 Review of Systems ROS Statement: Those systems with pertinent positive or pertinent negative responses have been documented in the HPI. ROS Other: All systems not noted in ROS Statement are negative. Past Medical History Past Medical History: GERD/Reflux, Hyperlipidemia, Renal Disease Additional Past Medical History / Comment(s): Gastroparesis, gastritis, esophageal tears, chronic low back pain, herniated lower discs, bilateral wrist tendonitis with R side worse, R shoulder pain past couple months, numbness to bilateral hand fingers when first wakes, migraines, instructed to sleep with HOB up 6 inches d/t heart rate dropping with sleep, vertigo, pyelonephritis, History of Any Multi-Drug Resistant Organisms: None Reported Past Surgical History: Appendectomy, Tubal Ligation Additional Past Surgical History / Comment(s): Botox injection "mouth" of stomach-R/T SPASMS , EGDs, colonoscopy, vaginal cyst drained. Past Anesthesia/Blood Transfusion Reactions: No Reported Reaction Additional Past Anesthesia/Blood Transfusion Reaction / Comment(s): never had blood transfusion. Past Psychological History: Anxiety, Depression Smoking Status: Current every day smoker Past Alcohol Use History: None Reported Past Drug Use History: Marijuana - Past Family History Mother Family Medical History: Cancer Additional Family Medical History / Comment(s): Mother is living. She has had breast cancer and 2 back surgeries. Father Family Medical History: No Reported History Additional Family Medical History / Comment(s): Father had ETOH abuse and was manic depressive. He after a fall where he fractured his back then "drank" himself to . Brother(s) Family Medical History: Neurologic Disorder Sister(s) Family Medical History: No Reported History Son(s) Family Medical History: No Reported History Daughter(s) Family Medical History: No Reported History General Exam Limitations: no limitations General appearance: alert, in no apparent distress Head exam: Present: atraumatic, normocephalic, normal inspection Eye exam: Present: normal appearance, PERRL, EOMI Pupils: Present: normal accommodation ENT exam: Present: normal exam, normal oropharynx, mucous membranes moist, TM's normal bilaterally, normal external ear exam Neck exam: Present: normal inspection, full ROM. Absent: tenderness Respiratory exam: Present: normal lung sounds bilaterally. Absent: respiratory distress, wheezes, rales, rhonchi, stridor Cardiovascular Exam: Present: regular rate, normal rhythm, normal heart sounds GI/Abdominal exam: Present: soft, tenderness (Right upper quadrant and epigastric tenderness). Absent: distended, guarding, rebound Extremities exam: Present: normal inspection, full ROM, normal capillary refill. Absent: tenderness, pedal edema, joint swelling, calf tenderness Back exam: Present: normal inspection, full ROM. Absent: tenderness, CVA tenderness (R), CVA tenderness (L) Neurological exam: Present: alert, oriented X3 Psychiatric exam: Present: normal affect, normal mood Skin exam: Present: warm, dry, intact, normal color Course Vital Signs 10/25/20 10/25/20 14:47 18:17 Temperature 97.9 F 98 F Pulse Rate 94 79 Respiratory 18 18 Rate Blood Pressure 138/83 128/71 O2 Sat by Pulse 97 97 Oximetry Medical Decision Making - Medical Decision Making 40-year-old female with history of gastroparesis presenting to emergency Department with chief complaint of nausea vomiting abdominal pain. On physical examination, patient has upper abdominal tenderness. She continues to be nauseous and vomiting. She was given antiemetics with improvement in symptoms. Also give the patient Valium and she still continued to vomit. Patient will be admitted for intractable nausea or vomiting. She has been admitted for further this. Patient appears to be exhibiting some opioid seeking behavior. Patient will be admitted for further medical management. Case discussed with Dr. Turner Admitting physician is Dr. Valentine - Lab Data Result diagrams: 10/25/20 15:12 10/25/20 15:12 Lab Results 10/25/20 10/25/20 10/25/20 Range/Units 15:12 15:12 17:00 WBC 10.6 (3.8-10.6) k/uL RBC 4.56 (3.80-5.40) m/uL Hgb 15.3 (11.4-16.0) gm/dL Hct 44.6 (34.0-46.0) % MCV 97.9 (80.0-100.0) fL MCH 33.5 (25.0-35.0) pg MCHC 34.3 (31.0-37.0) g/dL RDW 11.6 (11.5-15.5) % Plt Count 467 H (150-450) k/uL MPV 7.0 Neutrophils % 71 % Lymphocytes % 20 % Monocytes % 6 % Eosinophils % 1 % Basophils % 1 % Neutrophils # 7.5 (1.3-7.7) k/uL Lymphocytes # 2.2 (1.0-4.8) k/uL Monocytes # 0.6 (0-1.0) k/uL Eosinophils # 0.1 (0-0.7) k/uL Basophils # 0.1 (0-0.2) k/uL Sodium 139 (137-145) mmol/L Potassium 4.2 (3.5-5.1) mmol/L Chloride 103 (98-107) mmol/L Carbon Dioxide 24 (22-30) mmol/L Anion Gap 12 mmol/L BUN 23 H (7-17) mg/dL Creatinine 0.93 (0.52-1.04) mg/dL Est GFR (CKD-EPI)AfAm 89 (>60 ml/min/1.73 sqM) Est GFR (CKD-EPI)NonAf 77 (>60 ml/min/1.73 sqM) Glucose 123 H (74-99) mg/dL Calcium 10.8 H (8.4-10.2) mg/dL Total Bilirubin 1.0 (0.2-1.3) mg/dL AST 27 (14-36) U/L ALT 16 (4-34) U/L Alkaline Phosphatase 76 (38-126) U/L Total Protein 9.2 H (6.3-8.2) g/dL Albumin 5.5 H (3.5-5.0) g/dL Lipase 37 (23-300) U/L Urine Color Yellow Urine Appearance Turbid H (Clear) Urine pH 6.0 (5.0-8.0) Ur Specific [place] 1.042 H (1.001-1.035) Urine Protein 2+ H (Negative) Urine Glucose (UA) Negative (Negative) Urine Ketones 2+ H (Negative) Urine Blood Moderate H (Negative) Urine Nitrite Negative (Negative) Urine Bilirubin Negative (Negative) Urine Urobilinogen 2.0 (<2.0) mg/dL Ur Leukocyte Esterase Negative (Negative) Urine RBC 5 (0-5) /hpf Urine WBC 2 (0-5) /hpf Ur Squamous Epith Cells 21 H (0-4) /hpf Urine Bacteria Many H (None) /hpf Urine Mucus Many H (None) /hpf Disposition Clinical Impression: Intractable nausea and vomiting, Abdominal pain, Dehydration Disposition: ADMITTED IP TO THIS HOSP Condition: Good Is patient prescribed a controlled substance at d/c from ED?: No Referrals: Jewell Bui MD [Primary Care Provider] - 1-2 days Time of Disposition: 19:07
[2020-10-25 15:24] LABS: Basophils # (A) 0.1 k/uL (0-0.2); Basophils % (A) 1 %; Eosinophils # (A) 0.1 k/uL (0-0.7); Eosinophils % (A) 1 %; HCT 44.6 % (34.0-46.0); HGB 15.3 gm/dL (11.4-16.0); Lymphocytes # (A) 2.2 k/uL (1.0-4.8); Lymphocytes % (A) 20 %; MCH 33.5 pg (25.0-35.0); MCHC 34.3 g/dL (31.0-37.0); MCV 97.9 fL (80.0-100.0); Monocytes # (A) 0.6 k/uL (0-1.0); Monocytes % (A) 6 %; Neutrophils # (A) 7.5 k/uL (1.3-7.7); Neutrophils % (A) 71 %; Platelet Count 467 k/uL (150-450); RBC 4.56 m/uL (3.80-5.40); RDW 11.6 % (11.5-15.5); WBC 10.6 k/uL (3.8-10.6)
[2020-10-25 15:37] LABS: Albumin 5.5 g/dL (3.5-5.0); Calcium 10.8 mg/dL (8.4-10.2); Potassium 4.2 mmol/L (3.5-5.1); Total Protein 9.2 g/dL (6.3-8.2)
[2020-10-25] MEDS ORDERED: DIAZEPAM 5 MG/ML 2 ML INJ IVP STA (15:37)
[2020-10-25 17:29] LABS: Appearance,Urine Turbid (Clear); Bacteria,Urine Many /hpf; Bilirubin,Urine Negative (Negative); Blood,Urine Moderate (Negative); Color,Urine Yellow; Glucose,Urine (UA) Negative (Negative); Ketones,Urine 2+ (Negative); Leukocyte Esterase,Urine Negative (Negative); Mucus,Urine Many /hpf; Nitrite,Urine Negative (Negative); Protein,Urine 2+ (Negative); RBC,Urine 5 /hpf (0-5); Specific Gravity,Urine 1.042 (1.001-1.035); Squamous Epithelial Cell,Urine 21 /hpf (0-4); WBC,Urine 2 /hpf (0-5)
[2020-10-25] MEDS ORDERED: NALOXONE 0.4 MG/ML 1 ML VIAL IV PRN (17:57)
[2020-10-25] MEDS ORDERED: PROCHLORPERAZINE 5 MG TAB PO PRN (17:57)
[2020-10-25] MEDS ORDERED: PROMETHAZINE 25 MG TAB PO PRN (17:57)
[2020-10-25] MEDS ORDERED: ACETAMINOPHEN TAB 325 MG TAB PO PRN (17:57)
[2020-10-25] MEDS ORDERED: LORazepam 2 MG/ML INJ IV PRN (17:57)
[2020-10-25] MEDS: SODIUM CHLORIDE 0.9% 1,000 ML IV SCH (18:10)
[2020-10-25] MEDS: ONDANSETRON 4 MG/2 ML VIAL IVP PRN (18:36)
[2020-10-25] MEDS ORDERED: HYDROmorphone 0.5 MG/0.5 ML SYRINGE IVP STA (18:42)
[2020-10-25] MEDS ORDERED: ALBUTEROL NEBULIZED 2.5 MG/3 ML INHALATION PRN (22:46)
[2020-10-25] MEDS: KETOROLAC 15 MG/ML 1 ML VIAL IVP PRN (23:10)
[2020-10-26] MEDS: ONDANSETRON 4 MG/2 ML VIAL IVP PRN ×2 (03:54→15:32)
[2020-10-26] MEDS: KETOROLAC 15 MG/ML 1 ML VIAL IVP PRN ×3 (05:48→20:10)
--- NOTE | 2020-10-26 09:26 | P.HPIM ---
History of Present Illness This is a pleasant 40 years old female with multiple medical problems and multiple hospitalization She was hospitalized twice over the last 2 months for nausea vomiting and abdominal pain as she is a known case of gastroparesis. Patient presents because of 3 days of abdominal pain, nausea vomiting, yesterday she vomited about 9-10 times, the day before about 15 times and this morning she vomited after she ate her breakfast. Associated with upper abdominal pain when ever she vomits or chest bowel movement. She denies diarrhea and she does not have bowel movement for the last 3 days. Denies fever. She relates her nausea vomiting and abdominal pain to her menstrual period. Her menstrual period ended on Thursday, and on a Thursday she started having vomiting She supposed to see dehydrogenation supervisor Dr. Hickey yesterday but because of her vomiting they referred her to the hospital Patient is afebrile. Vitals are stable since admission. Labs show an unremarkable CBC, platelet slightly high at 467, BMP is unremarkable with sli ghtly elevated BUN. Glucose 123. Calcium slightly elevated at 10.8. Which is indicated. Dehydration Urine analysis also looks dehydrated sample with high specific gravity at 1.042 The emergency room she was started on Protonix, Zofran, Valium and 1 L of normal saline. And then continued at 75 mL/h MAPS was checked today and no recurrence was found for her Review of Systems CONSTITUTIONAL: No fever, no malaise, no fatigue. HEENT: No recent visual problems or hearing problems. Denied any sore throat. CARDIOVASCULAR: No orthopnea, PND, no palpitations, no syncope. PULMONARY: No shortness of breath, no cough, no hemoptysis. GASTROINTESTINAL: No diarrhea, Normoactive bowel sounds. NEUROLOGICAL: No headaches, no weakness, no numbness. HEMATOLOGICAL: Denies any bleeding or petechiae. GENITOURINARY: Denies any burning micturition, frequency, or urgency. MUSCULOSKELETAL/RHEUMATOLOGICAL: Denies any joint pain, swelling, or any muscle pain. ENDOCRINE: Denies any polyuria or polydipsia. Past Medical History Past Medical History: GERD/Reflux, Hyperlipidemia, Renal Disease Additional Past Medical History / Comment(s): Gastroparesis, gastritis, esophageal tears, chronic low back pain, herniated lower discs, bilateral wrist tendonitis with R side worse, R shoulder pain past couple months, numbness to bilateral hand fingers when first wakes, migraines, instructed to sleep with HOB up 6 inches d/t heart rate dropping with sleep, vertigo, pyelonephritis, History of Any Multi-Drug Resistant Organisms: None Reported Past Surgical History: Appendectomy, Tubal Ligation Additional Past Surgical History / Comment(s): Botox injection "mouth" of stomach-R/T SPASMS , EGDs, colonoscopy, vaginal cyst drained. Past Anesthesia/Blood Transfusion Reactions: No Reported Reaction Additional Past Anesthesia/Blood Transfusion Reaction / Comment(s): Never had blood transfusion. Past Psychological History: Anxiety, Depression Additional Psychological History / Comment(s): Pt resides with spouse and 3 children. She is independent. Smoking Status: Current every day smoker Past Alcohol Use History: None Reported Additional Past Alcohol Use History / Comment(s): Pt. started smoking in 1992 and smokes sometimes 1 PPD on a bad day. Has had 1 cigarette in last 3 days per patient. Past Drug Use History: Marijuana Additional Drug Use History / Comment(s): Patient states she smoked marijuana la 10/04/20 - Past Family History Mother Family Medical History: Cancer Additional Family Medical History / Comment(s): Mother is living. She has had breast cancer and 2 back surgeries. Father Family Medical History: No Reported History Additional Family Medical History / Comment(s): Father had ETOH abuse and was manic depressive. He after a fall where he fractured his back then "drank" himself to . Brother(s) Family Medical History: Neurologic Disorder Sister(s) Family Medical History: No Reported History Son(s) Family Medical History: No Reported History Daughter(s) Family Medical History: No Reported History Medications and Allergies Home Medications Medication Instructions Recorded Confirmed Type Pantoprazole Sodium [Protonix] 40 mg PO DAILY #30 tablet.dr 08/27/20 10/25/20 Rx Albuterol Nebulized [Ventolin 2.5 mg INHALATION RT-QID PRN 10/23/20 10/25/20 History Nebulized] Ondansetron Odt [Zofran ODT] 8 mg PO BID 10/23/20 10/25/20 History [place] (Unknown Strength) 0.5 tab PO ONCE PRN 10/25/20 10/25/20 History Allergies Allergy/AdvReac Type Severity Reaction Status Date / Time sulfamethoxazole Allergy Rash/Hives Verified 10/26/20 00:09 [From Bactrim] trimethoprim [From Bactrim] Allergy Rash/Hives Verified 10/26/20 00:09 Physical Exam Vitals: Vital Signs Temp Pulse Pulse Resp BP BP Pulse Ox 10/26/20 01:00 97.6 F 69 16 93/56 97 10/25/20 21:27 97.9 F 10/25/20 21:25 97.9 F 10/25/20 20:40 69 14 111/69 97 10/25/20 18:17 98 F 79 18 128/71 97 10/25/20 14:47 97.9 F 94 18 138/83 97 Intake and Output 10/25/20 10/26/20 10/26/20 22:59 06:59 14:59 Other: Weight 58.967 kg GENERAL: The patient is alert and oriented x3, not in any acute distress. Well developed, well nourished. HEENT: Pupils are round and equally reacting to light. EOMI. No scleral icterus. No conjunctival pallor. Normocephalic, atraumatic. No pharyngeal erythema. No thyromegaly. CARDIOVASCULAR: S1 and S2 present. No murmurs, rubs, or gallops. PULMONARY: Chest is clear to auscultation, no wheezing or crackles. ABDOMEN: Soft, nontender, nondistended, normoactive bowel sounds. No palpable organomegaly. MUSCULOSKELETAL: No joint swelling or deformity. EXTREMITIES: No cyanosis, clubbing, or pedal edema. NEUROLOGICAL: Gross neurological examination did not reveal any focal deficits. SKIN: No rashes. No petechiae Results CBC & Chem 7: 10/25/20 15:12 10/25/20 15:12 Labs: Abnormal Lab Results - Last 24 Hours (Table) 10/25/20 10/25/20 10/25/20 Range/Units 15:12 15:12 17:00 Plt Count 467 H (150-450) k/uL BUN 23 H (7-17) mg/dL Glucose 123 H (74-99) mg/dL Calcium 10.8 H (8.4-10.2) mg/dL Total Protein 9.2 H (6.3-8.2) g/dL Albumin 5.5 H (3.5-5.0) g/dL Urine Appearance Turbid H (Clear) Ur Specific [place] 1.042 H (1.001-1.035) Urine Protein 2+ H (Negative) Urine Ketones 2+ H (Negative) Urine Blood Moderate H (Negative) Ur Squamous Epith Cells 21 H (0-4) /hpf Urine Bacteria Many H (None) /hpf Urine Mucus Many H (None) /hpf Thrombosis Risk Factor Assmnt - Choose All That Apply Any of the Below Risk Factors Present?: Yes Each Factor Represents 1 point: Age 41-60 years Other Risk Factors: No Other congenital or acquired thrombophilia - If yes, enter type in comment: No Thrombosis Risk Factor Assessment Total Risk Factor Score: 1 Thrombosis Risk Factor Assessment Level: Low Risk Assessment and Plan Assessment: Recurrent nausea and vomiting, related to her menstrual period Gastroparesis Dehydration secondary to above Hyperlipidemia Recent history Asymptomatic bacteriuria Degenerative joint disease with chronic back pain History of migraine History of Botox injection for gastroparesis Anxiety and depression, not an active issue Anemia Plan: this is a pleasant 40 years old female who presents with nausea vomiting, a menstrual period. Continue with IV fluids, continue with antiemetic. Pain management. Monitor electrolytes. Pain management. Follow-up recommendation by GI team . Consult [facility] Labs and medication were reviewed.. Continue same treatment. Continue with symptomatic treatment. Resume home medication. Monitor lytes and vitals. DVT and GI prophylaxis. Further recommendations depends on the clinical course of the patient DVT prophylaxis: Subcutaneous heparin GI Prophylaxis: Ppi
[2020-10-26 09:42] LABS: Basophils % (A) 0 %; Eosinophils # (A) 0.1 k/uL (0-0.7); Eosinophils % (A) 1 %; HCT 36.7 % (34.0-46.0); Lymphocytes # (A) 3.2 k/uL (1.0-4.8); Lymphocytes % (A) 40 %; MCV 99.8 fL (80.0-100.0); Mean Platelet Volume 7.1; Monocytes # (A) 0.4 k/uL (0-1.0); Monocytes % (A) 5 %; Neutrophils # (A) 4.2 k/uL (1.3-7.7); Neutrophils % (A) 52 %; Platelet Count 332 k/uL (150-450); RBC 3.68 m/uL (3.80-5.40); RDW 11.5 % (11.5-15.5)
[2020-10-26 09:51] LABS: HGB 12.1 gm/dL (11.4-16.0)
[2020-10-26 09:53] LABS: ALT 12 U/L (4-34); AST 19 U/L (14-36); African American GFR (CKD) >90 (>60 ml/min/1.73 sqM); Albumin 4.2 g/dL (3.5-5.0); Alkaline Phosphatase 51 U/L (38-126); Anion Gap 7 mmol/L; Bilirubin, Delta 0.1 mg/dL (0.0-0.2); Bilirubin,Unconjugated 0.7 mg/dL (0.0-1.1); Blood Urea Nitrogen 28 mg/dL (7-17); Calcium 9.2 mg/dL (8.4-10.2); Carbon Dioxide 25 mmol/L (22-30); Chloride 103 mmol/L (98-107); Glucose 122 mg/dL (74-99); Magnesium 2.1 mg/dL (1.6-2.3); Non-African American GFR(CKD) >90 (>60 ml/min/1.73 sqM); Potassium 3.5 mmol/L (3.5-5.1); Sodium 135 mmol/L (137-145); Total Bilirubin 0.8 mg/dL (0.2-1.3)
[2020-10-26] MEDS: MORPHINE SULFATE 2 MG/ML SYRINGE IVP PRN ×3 (10:42→21:57)
[2020-10-26] MEDS: PANTOPRAZOLE 40 MG/10 ML VIAL IVP SCH (10:43)
--- NOTE | 2020-10-26 10:49 | US ---
EXAMINATION TYPE: US transvaginal DATE OF EXAM: 10/26/2020 COMPARISON: CT June 04, 2020 CLINICAL HISTORY: abdominal pain. Pain TECHNIQUE: Transvaginal (TV). EXAM MEASUREMENTS: Uterus: 7.9 x 5.0 x 5.7 cm Endometrial Stripe: .4 cm Right Ovary: 2.6 x 1.0 x 2.4 cm Left Ovary: 3.2 x 1.5 x 1.7 cm 1. Uterus: Retroverted wnl 2. Endometrium: wnl 3. Right Ovary: wnl 4. Left Ovary: wnl 5. Bilateral Adnexa: wnl 6. Posterior cul-de-sac: wnl Retroverted uterus redemonstrated. IMPRESSION: No acute findings are evident. No significant change from recent CT.
[2020-10-26] MEDS: SODIUM CHLORIDE 0.9% 1,000 ML IV SCH ×2 (10:51→20:11)
--- NOTE | 2020-10-26 11:49 | P.OBCN ---
History of Present Illness Consult date: 10/26/20 Requesting physician: Jim Rogers Reason for consult: pelvic pain Chief complaint: Cyclic pain History of present illness: Francy is a 40-year-old with prior history of tubal ligation and appendectomy who has a long history of abdominal pain. She relates that her pain goes back as far as 2012 and that due to history of back injuries that she narcotics for very long time and in the last few years switched over to marijuana. She relates that usually she smokes quite a bit of marijuana a day but that it has not helped the pain. Her pain is a cramping pain mid abdominal to right upper quadrant in nature that she says occurs cyclically. She relates that the pain begins approximately week before and lasts 2 week after her period is gone in the in between those time she says that she does not have pain, nausea, or vomiting. I cannot find anywhere else where she describes this symptomatology. In questioning her on Y nothing else had been done from a gynecologic standpoint prior to this she offers very little in the way of explanation stating that no one else had really considered it and that she lost her insurance a few years ago and now she is getting insurance back area and she relates her last Pap smear was approximately 3 years ago but she doesn't know who did it. She believes was a physician [place] side of [place]. She says that she had moved from the area to [place] at about that time the pains were starting and that no one in [place] did any workup on it from a gynecologic perspective. She does see GI for gastroparesis and is difficult to say whether or not the gastroparesis is the Pain is described as sharp and stabbing with crampy nature with what she describes as almost like a bulge or hard area in the right upper and mid quadran t of her abdomen. She is not describing any true pelvic pain. She denies any urinary frequency or urgency virtually eliminating interstitial cystitis as a possible diagnosis. Certainly based on her description endometriosis could be in the differential diagnosis and could be the cause of her pain by suspect this is multifactorial. We have discussed the possibility of diagnostic laparoscopy in the future to try and better delineate what her pain might be from versus potentially sending her to the pelvic pain center out of [facility] to have a more thorough evaluation and treatment options performed. With her pain not being in her pelvis however it is difficult to say what what we are really able to do. I suspect if we took her to surgery regarding of a very difficult time controlling her postoperative pain as well. She relates that she doesn't like to take [place] but that she recently took a couple of Dimock due to the significance of her pain. She says it for last 5 days or so she has not smoked any marijuana. She is on no other medicines for pain according to her. She is 40 years old and is a smoker so hormonal manipulation to try and make her amenorrheic is likely Contraindicated although consideration for Depo-Provera to eliminate the menses could certainly be made. She did have her tubes tied and she is not eager to do that as a possible treatment and I'm not sure I would bleeding her since it is also possible she could bleed constantly and her pain would just get worse. Her menses otherwise she is not describing as being problematic. Her abdomen is soft she does have bowel sounds and there is no rebound/rigidity/or guarding. From my standpoint is very difficult to say if she truly has cyclic pain or possibly endometriosis but she clearly has pain medication issues and is hard for me to say whether or not her pain level is high enough to require narcotic pain relievers versus a more traditional nonsteroidal anti-inflammatory medication that would work better in this circumstance. That said she relates that she has had esophageal tears due to the amount of vomiting she's had and has had have her stomach pumped on 4 separate occasions for blood in her stomach so is also entirely possible that nonsteroidal anti-inflammatories are contraindicated in her case. After long discussion we did talk about doing exam in the hospital but with limitations and need for Pap smear anyway she has agreed that we could see her next week following her discharge do a Pap smear and cultures for infection and make long-term treatment option plans were to very least initiate discussion what 1 for treatment plans might be. Thank you very much for this consult Past Medical History Past Medical History: GERD/Reflux, Hyperlipidemia, Renal Disease Additional Past Medical History / Comment(s): Gastroparesis, gastritis, esophageal tears, chronic low back pain, herniated lower discs, bilateral wrist tendonitis with R side worse, R shoulder pain past couple months, numbness to bilateral hand fingers when first wakes, migraines, instructed to sleep with HOB up 6 inches d/t heart rate dropping with sleep, vertigo, pyelonephritis, History of Any Multi-Drug Resistant Organisms: None Reported Past Surgical History: Appendectomy, Tubal Ligation Additional Past Surgical History / Comment(s): Botox injection "mouth" of s tomach-R/T SPASMS , EGDs, colonoscopy, vaginal cyst drained. Past Anesthesia/Blood Transfusion Reactions: No Reported Reaction Additional Past Anesthesia/Blood Transfusion Reaction / Comm: Never had blood transfusion. Past Psychological History: Anxiety, Depression Additional Psychological History / Comment(s): Pt resides with spouse and 3 children. She is independent. Smoking Status: Current every day smoker Past Alcohol Use History: None Reported Additional Past Alcohol Use History / Comment(s): Pt. started smoking in 1992 and smokes sometimes 1 PPD on a bad day. Has had 1 cigarette in last 3 days per patient. Past Drug Use History: Marijuana Additional Drug Use History / Comment(s): Patient states she smoked marijuana last 10/04/20 - Past Family History Mother Family Medical History: Cancer Additional Family Medical History / Comment(s): Mother is living. She has had breast cancer and 2 back surgeries. Father Family Medical History: No Reported History Additional Family Medical History / Comment(s): Father had ETOH abuse and was manic depressive. He after a fall where he fractured his back then "drank" himself to . Brother(s) Family Medical History: Neurologic Disorder Sister(s) Family Medical History: No Reported History Son(s) Family Medical History: No Reported History Daughter(s) Family Medical History: No Reported History Medications and Allergies Home Medications Medication Instructions Recorded Confirmed Type RX: Pantoprazole Sodium [Protonix] 40 mg PO DAILY #30 tablet.dr 08/27/20 10/25/20 Rx Albuterol Nebulized [Ventolin 2.5 mg INHALATION RT-QID PRN 10/23/20 10/25/20 History Nebulized] RX: Ondansetron Odt [Zofran ODT] 8 mg PO BID 10/23/20 10/25/20 History [place] (Unknown Strength) 0.5 tab PO ONCE PRN 10/25/20 10/25/20 History Allergies Allergy/AdvReac Type Severity Reaction Status Date / Time sulfamethoxazole Allergy Rash/Hives Verified 10/26/20 00:09 [From Bactrim] trimethoprim [From Bactrim] Allergy Rash/Hives Verified 10/26/20 00:09 Exam Osteopathic Statement: *. No significant issues noted on an osteopathic structural exam other than those noted in the History and Physical/Consult. Vital Signs Temp Pulse Pulse Resp BP BP Pulse Ox 10/26/20 08:37 97.7 F 70 24 102/67 94 L 10/26/20 01:00 97.6 F 69 16 93/56 97 10/25/20 21:27 97.9 F 10/25/20 21:25 97.9 F 10/25/20 20:40 69 14 111/69 97 10/25/20 18:17 98 F 79 18 128/71 97 10/25/20 14:47 97.9 F 94 18 138/83 97 Intake and Output 10/25/20 10/26/20 10/26/20 22:59 06:59 14:59 Other: # Voids 1 Weight 58.967 kg Results Result Diagrams: 10/26/20 09:01 10/26/20 09:01 Abnormal Lab Results - Last 24 Hours (Table) 10/25/20 10/25/20 10/25/20 Range/Units 15:12 15:12 17:00 RBC (3.80-5.40) m/uL Plt Count 467 H (150-450) k/uL Sodium (137-145) mmol/L BUN 23 H (7-17) mg/dL Glucose 123 H (74-99) mg/dL Calcium 10.8 H (8.4-10.2) mg/dL Total Protein 9.2 H (6.3-8.2) g/dL Albumin 5.5 H (3.5-5.0) g/dL Urine Appearance Turbid H (Clear) Ur Specific [place] 1.042 H (1.001-1.035) Urine Protein 2+ H (Negative) Urine Ketones 2+ H (Negative) Urine Blood Moderate H (Negative) Ur Squamous Epith Cells 21 H (0-4) /hpf Urine Bacteria Many H (None) /hpf Urine Mucus Many H (None) /hpf 10/26/20 10/26/20 Range/Units 09:01 09:01 RBC 3.68 L (3.80-5.40) m/uL Plt Count (150-450) k/uL Sodium 135 L (137-145) mmol/L BUN 28 H (7-17) mg/dL Glucose 122 H (74-99) mg/dL Calcium (8.4-10.2) mg/dL Total Protein (6.3-8.2) g/dL Albumin (3.5-5.0) g/dL Urine Appearance (Clear) Ur Specific [place] (1.001-1.035) Urine Protein (Negative) Urine Ketones (Negative) Urine Blood (Negative) Ur Squamous Epith Cells (0-4) /hpf Urine Bacteria (None) /hpf Urine Mucus (None) /hpf
[2020-10-26 12:35] VITALS: BMI 20.3
[2020-10-26] MEDS: HEPARIN SODIUM,PORCINE 5,000 UNIT/ML 1 ML VIAL SQ SCH ×2 (13:34→20:23)
[2020-10-26 14:47] VITALS: RESP 16
--- NOTE | 2020-10-26 21:05 | CONS ---
CONSULTATION DATE OF DICTATION: 10/26/2020 REASON FOR CONSULTATION: Persistent nausea and vomiting and history of gastroparesis. HISTORY OF PRESENT ILLNESS: The patient is a 40-year-old pleasant white female who was diagnosed with idiopathic gastroparesis in 2012 and since then has been having intermittent episodes of nausea and vomiting requiring hospitalization. However, for the last one year she has been having frequent episodes, at least once a month, which are correlated with her menstrual cycles. She has these episodes wherein she becomes extremely intensely nauseated with vomiting that lasts for 3 or 5 days and often comes to the emergency room and gets admitted to the hospital several times for symptomatic therapy. She just came to the ER five days ago with nausea and vomiting, was given some nausea medications and discharged home. She continued to have persistent symptoms and hence came back again yesterday and was admitted for further evaluation. She had at least 9 or 10 episodes of emesis yesterday. No coffee-ground emesis. She has some abdominal pain, mostly in the epigastric area. She reports no diarrhea. She underwent an EGD with Botox injection of the pyloric sphincter in April of this year, with no help. PAST MEDICAL HISTORY: Her past medical history is significant for idiopathic gastroparesis, hypertension, hyperlipidemia, gastroesophageal reflux disease, chronic back pain. PAST SURGICAL HISTORY: Tubal ligation, appendectomy, EGD with Botox injection of the pylorus, vaginal cyst removal. MEDICATIONS: Medications at home include Protonix, Zofran, Reglan p.r.n., albuterol. SOCIAL HISTORY: She smokes marijuana every day and is also a chronic smoker. FAMILY HISTORY: Mother had breast cancer. Father had alcoholism. REVIEW OF SYSTEMS: CARDIOPULMONARY: No chest pain or shortness of breath. GENITOURINARY: No dysuria or hematuria. MUSCULOSKELETAL: Unremarkable. SKIN: Unremarkable. PSYCHIATRIC: Anxiety, depression. ENT: Unremarkable. MUSCULOSKELETAL: Chronic back pain and cervical neck pain. NEUROLOGY: Unremarkable. CONSTITUTIONAL: No recent weight loss. No fever, chills, night sweats. GI: As mentioned above. HEMATOLOGY: Unremarkable. ALLERGIES: SULFA. PHYSICAL EXAMINATION: She appears comfortable. No apparent distress. VITAL SIGNS: Stable. Blood pressure is 101/85, pulse rate 61, temperature 98. HEENT examination unremarkable. Conjunctivae pink. Sclerae anicteric. Oral cavity no lesions. NECK: No JVD or lymph node enlargement. CHEST: Clear to auscultation. HEART: Regular rate and rhythm. ABDOMEN: Soft. Bowel sounds are positive. No organomegaly. EXTREMITIES: No pedal edema. NEUROLOGIC: She is alert and oriented x3. No focal deficits. LABS: Labs done at the time of admission to the hospital showed WBC 8, hemoglobin 12, platelets normal. Basic metabolic panel is within normal limits. BUN 28, creatinine 0.9. AST, ALT, T-bilirubin, alkaline phosphatase normal. Lipase is normal. IMPRESSION: Idiopathic gastroparesis diagnosed 6 years ago. Patient having intermittent symptoms with severe nausea, vomiting and abdominal pain requiring multiple hospitalizations over the last several years. Lately her symptoms have been progressively getting worse. She underwent upper endoscopy with Botox of the pyloric sphincter in April of this year, with no help. At home she is maintained on Protonix, Zofran and Reglan as needed, with no help. Her symptoms have been mostly cyclical in nature, correlating with her menstrual cycles most of the time. She tried to stop smoking marijuana for 6 months, with no change in her symptoms. RECOMMENDATIONS: 1. Continue with symptomatic and supportive care. 2. Continue Protonix 40 mg twice daily. 3. Antiemetics as needed. 4. Small frequent meals. 5. Once she is better, she can be discharged home with close outpatient followup in 2 weeks. Thank you for this consultation. MMODL / IJN: [id number] /
[2020-10-27] MEDS: ONDANSETRON 4 MG/2 ML VIAL IVP PRN ×2 (01:06→09:03)
[2020-10-27] MEDS: KETOROLAC 15 MG/ML 1 ML VIAL IVP PRN (01:16)
[2020-10-27] MEDS: MORPHINE SULFATE 2 MG/ML SYRINGE IVP PRN (08:57)
[2020-10-27 09:58] LABS: Basophils % (A) 1 %; Eosinophils # (A) 0.1 k/uL (0-0.7); Eosinophils % (A) 2 %; HCT 33.9 % (34.0-46.0); HGB 11.2 gm/dL (11.4-16.0); Lymphocytes # (A) 2.5 k/uL (1.0-4.8); Lymphocytes % (A) 48 %; MCH 33.4 pg (25.0-35.0); MCV 101.3 fL (80.0-100.0); Mean Platelet Volume 7.2; Monocytes # (A) 0.3 k/uL (0-1.0); Monocytes % (A) 6 %; Neutrophils % (A) 40 %; Platelet Count 300 k/uL (150-450); RBC 3.34 m/uL (3.80-5.40); RDW 11.8 % (11.5-15.5); WBC 5.1 k/uL (3.8-10.6)
--- NOTE | 2020-10-27 10:08 | PN ---
PROGRESS NOTE DATE OF SERVICE: 10/27/2020 INTERVAL HISTORY: Patient is a 40-year-old pleasant white female with idiopathic gastroparesis, admitted to the hospital with intractable abdominal pain, nausea, vomiting. She is feeling better today. Nausea is better. She is on a soft diet, tolerating well. She remains on Zofran as needed, Compazine and Protonix. She had no episodes of emesis all through the night. PHYSICAL EXAMINATION: GENERAL: Appears comfortable. VITAL SIGNS: Blood pressure 94/66, pulse rate 62, temperature 97.8. HEENT: Examination unremarkable. Conjunctivae are pink. Sclerae anicteric. Oral cavity no lesions. NECK: No JVD or lymph node enlargement. CHEST: Clear to auscultation. HEART: Regular rate and rhythm. ABDOMEN: Soft. Bowel sounds are positive. No organomegaly. EXTREMITIES: No pedal edema. NEUROLOGIC: Alert and oriented x3. No focal deficits. LABS: From today not available. Yesterday, WBC 8, hemoglobin 12.1, platelets normal. Basic metabolic panel is within normal limits. IMPRESSION: Idiopathic gastroparesis with intractable nausea, vomiting for the last 3 days. The patient presently on Protonix, Zofran and Phenergan. She is doing much better. Last EGD with Botox was done in May of this year and did not improve any of her symptoms. Last gastric emptying scan in April of this year did show evidence of significant delayed gastric emptying. RECOMMENDATIONS: 1. Continue with current PPIs and antiemetics. 2. Advance diet gradually. 3. Small frequent meals. 4. Advised the patient to follow up in the office in 2 weeks following discharge from the hospital for outpatient management. Thank you for this consultation. MMODL / IJN: [id number] /
[2020-10-27 10:20] LABS: African American GFR (CKD) >90 (>60 ml/min/1.73 sqM); Anion Gap 5 mmol/L; Blood Urea Nitrogen 18 mg/dL (7-17); Calcium 8.6 mg/dL (8.4-10.2); Carbon Dioxide 24 mmol/L (22-30); Chloride 107 mmol/L (98-107); Glucose 101 mg/dL (74-99); Non-African American GFR(CKD) >90 (>60 ml/min/1.73 sqM); Potassium 3.6 mmol/L (3.5-5.1); Sodium 136 mmol/L (137-145)
[2020-10-27] MEDS: PANTOPRAZOLE 40 MG/10 ML VIAL IVP SCH (10:25)
[2020-10-27] MEDS: HEPARIN SODIUM,PORCINE 5,000 UNIT/ML 1 ML VIAL SQ SCH (10:26)
[2020-10-27 10:33] VITALS: BP 98/62; PULSE 60; TEMP 97.1
[2020-10-27] MEDS: SODIUM CHLORIDE 0.9% 1,000 ML IV SCH (10:37)
--- NOTE | 2020-10-27 11:12 | P.DS ---
Providers Date of admission: 10/25/20 17:56 Expected date of discharge: 10/27/20 Attending physician: Etta Valentine Consults: 10/25/20 17:57 Consult Physician Stat Consulting Provider: Lavonne Flores Consult Reason/Comments: Intractable nausea and vomiting Do you want consulting provider notified?: Yes 10/26/20 09:12 Consult Physician Routine Consulting Provider: Jason Hickey Consult Reason/Comments: abdominal pain and vomiting with periods, pt was due to see Edelmira yest. Do you want consulting provider notified?: Yes Primary care physician: Ramya Mckeon [facility] Course: HPI - Ms. Alston is a pleasant 40 years old female with multiple medical problems and multiple hospitalization. She was hospitalized twice over the last 2 months for nausea vomiting and abdominal pain as she is a known case of gastroparesis. Patient presents because of 3 days of abdominal pain, nausea vomiting, yesterday she vomited about 9-10 times, the day before about 15 times and this morning she vomited after she ate her breakfast. Associated with upper abdominal pain when ever she vomits or chest bowel movement. She denies diarrhea and she does not have bowel movement for the last 3 days. Denies fever. She relates her nausea vomiting and abdominal pain to her menstrual period. Her menstrual period ended on Thursday, and on a Thursday she started having vomitingShe supposed to see boilers and pressure vessels inspector Dr. Hickey yesterday but because of her vomiting they referred her to the hospital Patient is afebrile. Vitals are stable since admission. Labs show an unremarkable CBC, platelet slightly high at 467, BMP is unremarkable with slightly elevated BUN. Glucose 123. Calcium slightly elevated at 10.8. Which is indicated. Dehydration Urine analysis also looks dehydrated sample with high specific gravity at 1.042 The emergency room she was started on Protonix, Zofran, Valium and 1 L of normal saline. And then continued at 75 mL/h MAPS was checked today . Hospital course - patient was seen by [facility] consultation to GI. She was managed symptomatically on PPI and antiemetics. She was given IV fluids. Patient's symptoms improved. Today patient states that she is back to her baseline and wants to go home. Patient did have her breakfast this morning and tolerated it without having any nausea or vomiting. Repeat Urinalysis showed small blood , the one earlier was when she was on her period. So the patient is being discharged, to have follow-up with GI and [facility]. PHYSICAL EXAM GENERAL: The patient is alert and oriented x3, not in any acute distress. Well developed, well nourished. HEENT: Pupils are round and equally reacting to light. EOMI. No scleral icterus. No conjunctival pallor. Normocephalic, atraumatic. No pharyngeal erythema. No thyromegaly. CARDIOVASCULAR: S1 and S2 present. No murmurs, rubs, or gallops. PULMONARY: Chest is clear to auscultation, no wheezing or crackles. ABDOMEN: Soft, nontender, nondistended, normoactive bowel sounds. No palpable organomegaly. MUSCULOSKELETAL: No joint swelling or deformity. EXTREMITIES: No cyanosis, clubbing, or pedal edema. NEUROLOGICAL: Gross neurological examination did not reveal any focal deficits. SKIN: No rashes. No petechiae DISCHARGE DIAGNOSIS Recurrent nausea and vomiting Gastroparesis Dehydration secondary to above Hyperlipidemia Recent history Asymptomatic bacteriuria Degenerative joint disease with chronic back pain History of migraine History of Botox injection for gastroparesis Anxiety and depression, not an active issue Anemia Follow up - to follow-up with GI and [facility]. She states that she has a follow-up with his PCP Dr. Bui in 2 to 3 days. Patient Condition at Discharge: Good Plan - Discharge Summary Discharge Rx Participant: No New Discharge Prescriptions: Continue RX: Pantoprazole Sodium [Protonix] 40 mg PO DAILY #30 tablet. RX: Albuterol Nebulized [Ventolin Nebulized] 2.5 mg INHALATION RT-QID PRN PRN Reason: Shortness Of Breath RX: Ondansetron Odt [Zofran ODT] 8 mg PO BID Discontinued [place] (Unknown Strength) 0.5 tab PO ONCE PRN PRN Reason: Pain Discharge Medication List RX: Pantoprazole Sodium [Protonix] 40 mg PO DAILY #30 tablet. 08/27/20 [Rx] RX: Albuterol Nebulized [Ventolin Nebulized] 2.5 mg INHALATION RT-QID PRN 10/23/20 [History] RX: Ondansetron Odt [Zofran ODT] 8 mg PO BID 10/23/20 [History] Follow up Appointment(s)/Referral(s): Jason Hickey DO [Doctor of Osteopathic Medicine] - 1 Week Jewell Bui MD [Primary Care Provider] - 1-2 days Lavonne Flores MD [STAFF PHYSICIAN] - 2 Weeks Patient Instructions/Handouts: Endometriosis (DC), Diverticulitis (DC), Acute Nausea and Vomiting (GEN), Gastroparesis (GEN) Activity/Diet/Wound Care/Special Instructions: Diet as tolerated, drink plenty of fluids. Good handwashing. Call on Thursday to make your follow up appointments with Dr Hickey, Dr Flores, and Dr Bui.
[2020-10-27 11:34] LABS: Appearance,Urine Cloudy (Clear); Bacteria,Urine Rare /hpf; Bilirubin,Urine Negative (Negative); Blood,Urine Small (Negative); Color,Urine Light Yellow; Glucose,Urine (UA) Negative (Negative); Ketones,Urine Negative (Negative); Leukocyte Esterase,Urine Negative (Negative); Mucus,Urine Rare /hpf; Nitrite,Urine Negative (Negative); Protein,Urine Negative (Negative); RBC,Urine 1 /hpf (0-5); Specific Gravity,Urine 1.007 (1.001-1.035); Squamous Epithelial Cell,Urine 4 /hpf (0-4); Urobilinogen,Urine <2.0 mg/dL (<2.0); WBC,Urine 1 /hpf (0-5)
== END 2020-10-27 12:00 | disposition home or self-care (01) ==
LOC: EC 14:21 → 6PED 17:56
PROVIDERS: ADMIT Hospitalist; ATTEND Hospitalist
DX: E86.0 Dehydration (principal); R11.2 Nausea with vomiting, unspecified; R10.9 Unspecified abdominal pain; K21.9 Gastro-esophageal reflux disease without esophagitis; E78.5 Hyperlipidemia, unspecified; N28.9 Disorder of kidney and ureter, unspecified; I10 Essential (primary) hypertension; K31.84 Gastroparesis; G89.29 Other chronic pain; M54.5 Low back pain; R20.0 Anesthesia of skin; G43.909 Migraine, unspecified, not intractable, without status migrainosus; R42 Dizziness and giddiness; Z98.51 Tubal ligation status; Z98.890 Other specified postprocedural states; F41.9 Anxiety disorder, unspecified; F32.9 Major depressive disorder, single episode, unspecified; F17.210 Nicotine dependence, cigarettes, uncomplicated; Z80.3 Family history of malignant neoplasm of breast; Z81.1 Family history of alcohol abuse and dependence; Z81.8 Family history of other mental and behavioral disorders; Z82.0 Family history of epilepsy and other diseases of the nervous system; Z79.899 Other long term (current) drug therapy; Z88.2 Allergy status to sulfonamides
CPT/HCPCS: 96361 ×4; 96372 ×2; 96375 ×3; 96376 ×3; 96374; 99285; 36415; 80053; 80048 ×2; 80076; 83690; 83735 ×2; 85025 ×3; 81001 ×2; 84703; 87635; 76830; G0378 ×3; J2060; J1644 ×2; J3360; J2405 ×3; J2270 ×2; J1885 ×3; C9113 ×3; J1170

== ENCOUNTER 2020-12-08 20:16 | Emergency (ER) | payer MEDICARE ==
[2020-12-08 20:21] VITALS: TEMP 98.2
[2020-12-08] MEDS ORDERED: HYDROmorphone 1 MG/ML 1 ML SYRINGE IVP STA (20:37)
[2020-12-08] MEDS ORDERED: SODIUM CHLORIDE 0.9% 1,000 ML IV STA (20:37)
[2020-12-08] MEDS ORDERED: METOCLOPRAMIDE 5 MG/ML 2 ML VIAL IVP STA (20:37)
[2020-12-08] MEDS ORDERED: diphenhydrAMINE 50 MG/ML 1 ML VIAL IVP STA (20:37)
[2020-12-08] MEDS ORDERED: FAMOTIDINE 20 MG/2 ML VIAL IV STA (20:37)
--- NOTE | 2020-12-08 20:40 | ED ---
Abdominal Pain HPI - General Chief Complaint: Abdominal Pain Stated Complaint: Abd Pain,Vomiting Time Seen by Provider: 12/08/20 20:22 Source: patient Mode of arrival: ambulatory Limitations: no limitations - History of Present Illness Initial Comments: 40-year-old female patient presents to the emergency department today for evaluation of abdominal pain and vomiting. Patient states she has a history of gastroparesis and generally has flares around her period. States that she is due to start her period any time. States starting this morning she has had midepigastric pain radiating throughout her abdomen as well as frequent episodes of vomiting. She denies any fevers but states she has been chilled. States she is unable to keep down any food or fluids. Denies constipation or diarrhea. Denies any hematuria, dysuria, urinary frequency, urinary urgency. She has had appendectomy and tubal ligation in the past. She is also had Botox injections into her stomach. States she did attempt taking Zofran and Reglan at home without relief. She also took a [place] around 5 PM without relief. Patient denies any recent rash, cough, shortness of breath, chest pain, back pain, numbness, tingling, dizziness, weakness, headache, visual changes, or any other complaints. - Related Data Home Medications Medication Instructions Recorded Confirmed Albuterol Nebulized [Ventolin 2.5 mg INHALATION RT-QID PRN 10/23/20 12/08/20 Nebulized] Ondansetron Odt [Zofran ODT] 8 mg PO BID 10/23/20 12/08/20 HYDROcodone/APAP 7.5-325MG [[place] 0.5 tab PO TID 12/08/20 12/08/20 7.5-325] Prochlorperazine [Compazine] 10 mg PO ONCE PRN 12/08/20 12/08/20 Previous Rx's Medication Instructions Recorded Pantoprazole Sodium [Protonix] 40 mg PO DAILY #30 tablet. 08/27/20 Allergies Allergy/AdvReac Type Severity Reaction Status Date / Time sulfamethoxazole Allergy Rash/Hives Verified 12/08/20 20:54 [From Bactrim] trimethoprim [From Bactrim] Allergy Rash/Hives Verified 12/08/20 20:54 Review of Systems ROS Statement: Those systems with pertinent positive or pertinent negative responses have been documented in the HPI. ROS Other: All systems not noted in ROS Statement are negative. Past Medical History Past Medical History: GERD/Reflux, Hyperlipidemia, Renal Disease Additional Past Medical History / Comment(s): Gastroparesis, gastritis, esophageal tears, chronic low back pain, herniated lower discs, bilateral wrist tendonitis with R side worse, R shoulder pain past couple months, numbness to bilateral hand fingers when first wakes, migraines, instructed to sleep with HOB up 6 inches d/t heart rate dropping with sleep, vertigo, pyelonephritis, History of Any Multi-Drug Resistant Organisms: None Reported Past Surgical History: Appendectomy, Tubal Ligation Additional Past Surgical History / Comment(s): Botox injection "mouth" of stomach-R/T SPASMS , EGDs, colonoscopy, vaginal cyst drained. Past Anesthesia/Blood Transfusion Reactions: No Reported Reaction Additional Past Anesthesia/Blood Transfusion Reaction / Comment(s): Never had blood transfusion. Past Psychological History: Anxiety, Depression Smoking Status: Current every day smoker Past Alcohol Use History: None Reported Past Drug Use History: Marijuana - Past Family History Mother Family Medical History: Cancer Additional Family Medical History / Comment(s): Mother is living. She has had breast cancer and 2 back surgeries. Father Family Medical History: No Reported History Additional Family Medical History / Comment(s): Father had ETOH abuse and was manic depressive. He after a fall where he fractured his back then "drank" himself to . Brother(s) Family Medical History: Neurologic Disorder Sister(s) Family Medical History: No Reported History Son(s) Family Medical History: No Reported History Daughter(s) Family Medical History: No Reported History General Exam Limitations: no limitations General appearance: alert, in no apparent distress, other (This is a well- developed, well-nourished adult female patient in mild distress related to pain. Vital signs upon presentation are temperature 98.2F, pulse 102, respirations 20, blood pressure 135/95, pulse ox 100% on room air.) Eye exam: Present: normal appearance, PERRL, EOMI. Absent: scleral icterus, conjunctival injection, periorbital swelling ENT exam: Present: normal exam, normal oropharynx, mucous membranes moist Respiratory exam: Present: normal lung sounds bilaterally. Absent: respiratory distress, wheezes, rales, rhonchi, stridor Cardiovascular Exam: Present: regular rate, normal rhythm, normal heart sounds. Absent: systolic murmur, diastolic murmur, rubs, gallop, clicks GI/Abdominal exam: Present: soft, tenderness (Midepigastric), normal bowel sounds. Absent: distended, guarding, rebound, rigid Neurological exam: Present: alert, oriented X3, CN II-XII intact Psychiatric exam: Present: normal affect, normal mood Skin exam: Present: warm, dry, intact, normal color. Absent: rash Course Vital Signs 12/08/20 12/08/20 20:19 22:19 Temperature 98.2 F 98.2 F Pulse Rate 102 H 78 Respiratory 20 18 Rate Blood Pressure 135/95 142/83 O2 Sat by Pulse 100 98 Oximetry Medical Decision Making - Medical Decision Making 40-year-old female patient presents to the emergency department today for evaluation of abdominal pain and vomiting. Patient has a history of gastr oparesis and states that her symptoms are consistent with her usual pain pattern. States that she generally gets this during her period and it's due to start any time. Physical examination did reveal upper abdominal tenderness. Labs reviewed and did reveal elevated white blood cell count, most likely reactive from vomiting. She was given IV fluids, pain medication, nausea medication. Upon reevaluation she does verbalize improvement in symptoms. She will be discharged home to follow-up with her primary care physician for recheck in 1-2 days. Return parameters were discussed in detail. She verbalizes understanding and agrees with this plan. - Lab Data Result diagrams: 12/08/20 20:47 12/08/20 20:47 Lab Results 12/08/20 12/08/20 12/08/20 Range/Units 20:47 20:47 20:47 WBC 15.4 H (3.8-10.6) k/uL RBC 4.59 (3.80-5.40) m/uL Hgb 15.2 D (11.4-16.0) gm/dL Hct 44.6 (34.0-46.0) % MCV 97.2 (80.0-100.0) fL MCH 33.2 (25.0-35.0) pg MCHC 34.1 (31.0-37.0) g/dL RDW 11.9 (11.5-15.5) % Plt Count 420 (150-450) k/uL MPV 7.6 Neutrophils % 89 % Lymphocytes % 7 % Monocytes % 3 % Eosinophils % 1 % Basophils % 0 % Neutrophils # 13.6 H (1.3-7.7) k/uL Lymphocytes # 1.1 (1.0-4.8) k/uL Monocytes # 0.4 (0-1.0) k/uL Eosinophils # 0.1 (0-0.7) k/uL Basophils # 0.1 (0-0.2) k/uL Sodium 142 (137-145) mmol/L Potassium 4.6 (3.5-5.1) mmol/L Chloride 109 H (98-107) mmol/L Carbon Dioxide 19 L (22-30) mmol/L Anion Gap 14 mmol/L BUN 10 (7-17) mg/dL Creatinine 0.88 (0.52-1.04) mg/dL Est GFR (CKD-EPI)AfAm >90 (>60 ml/min/1.73 sqM) Est GFR (CKD-EPI)NonAf 82 (>60 ml/min/1.73 sqM) Glucose 169 H (74-99) mg/dL Calcium 10.8 H (8.4-10.2) mg/dL Total Bilirubin 0.9 (0.2-1.3) mg/dL AST 21 (14-36) U/L ALT 16 (4-34) U/L Alkaline Phosphatase 91 (38-126) U/L Troponin I <0.012 (0.000-0.034) ng/mL Total Protein 9.1 H (6.3-8.2) g/dL Albumin 5.4 H (3.5-5.0) g/dL Lipase 35 (23-300) U/L - EKG Data -: EKG Interpreted by Me EKG Comments: EKG obtained at 2049 shows sinus rhythm with marked sinus arrhythmia. Jose tricular rate 74, IN interval 144, QRS duration 72, QT 394, QTC 437. No evidence of ST elevation or depression. Disposition Clinical Impression: Abdominal pain, Vomiting Disposition: HOME SELF-CARE Condition: Good Instructions (If sedation given, give patient instructions): Acute Nausea and Vomiting (ED), Abdominal Pain (ED) Additional Instructions: Rest. Increase fluids. Continue home medications. I sent Reglan to your pharmacy. Follow-up with her primary care physician for recheck in 1-2 days. Return to the emergency permit for any new, worsening, or concerning symptoms. Is patient prescribed a controlled substance at d/c from ED?: No Referrals: Jewell Bui MD [Primary Care Provider] - 1-2 days Time of Disposition: 21:49
[2020-12-08 20:54] LABS: Basophils # (A) 0.1 k/uL (0-0.2); Basophils % (A) 0 %; Eosinophils # (A) 0.1 k/uL (0-0.7); Eosinophils % (A) 1 %; HCT 44.6 % (34.0-46.0); Lymphocytes # (A) 1.1 k/uL (1.0-4.8); Lymphocytes % (A) 7 %; MCH 33.2 pg (25.0-35.0); MCHC 34.1 g/dL (31.0-37.0); MCV 97.2 fL (80.0-100.0); Mean Platelet Volume 7.6; Monocytes # (A) 0.4 k/uL (0-1.0); Monocytes % (A) 3 %; Neutrophils # (A) 13.6 k/uL (1.3-7.7); Neutrophils % (A) 89 %; Platelet Count 420 k/uL (150-450); RBC 4.59 m/uL (3.80-5.40); RDW 11.9 % (11.5-15.5); WBC 15.4 k/uL (3.8-10.6)
[2020-12-08 21:03] LABS: ALT 16 U/L (4-34); AST 21 U/L (14-36); African American GFR (CKD) >90 (>60 ml/min/1.73 sqM); Albumin 5.4 g/dL (3.5-5.0); Alkaline Phosphatase 91 U/L (38-126); Anion Gap 14 mmol/L; Blood Urea Nitrogen 10 mg/dL (7-17); Calcium 10.8 mg/dL (8.4-10.2); Carbon Dioxide 19 mmol/L (22-30); Chloride 109 mmol/L (98-107); Glucose 169 mg/dL (74-99); Lipase 35 U/L (23-300); Non-African American GFR(CKD) 82 (>60 ml/min/1.73 sqM); Potassium 4.6 mmol/L (3.5-5.1); Sodium 142 mmol/L (137-145); Total Bilirubin 0.9 mg/dL (0.2-1.3); Total Protein 9.1 g/dL (6.3-8.2)
[2020-12-08 21:16] LABS: HGB 15.2 gm/dL (11.4-16.0)
[2020-12-08] MEDS ORDERED: ONDANSETRON 4 MG/2 ML VIAL IM STA (21:48)
[2020-12-08] MEDS ORDERED: HYDROmorphone 1 MG/ML 1 ML SYRINGE IM STA (21:48)
[2020-12-08 22:29] VITALS: BP 142/83; PULSE 78; RESP 18
== END 2020-12-08 22:20 | disposition home or self-care (01) ==
LOC: EC 20:16
DX: R10.13 Epigastric pain (principal); R11.10 Vomiting, unspecified; K21.9 Gastro-esophageal reflux disease without esophagitis; F17.200 Nicotine dependence, unspecified, uncomplicated; Z79.899 Other long term (current) drug therapy; Z90.49 Acquired absence of other specified parts of digestive tract; Z98.51 Tubal ligation status; Z88.1 Allergy status to other antibiotic agents; Z88.2 Allergy status to sulfonamides
CPT/HCPCS: 93005; 80053; 83690; 84484; 85025; 99284; 96374; 96375 ×3; 96361; 96372 ×2; J1200; J2765; J2405; J1170

== ENCOUNTER 2020-12-09 05:36 | Observation (INO) | payer MEDICARE ==
--- NOTE | 2020-12-09 05:40 | ED ---
Recheck HPI - General Chief Complaint: Abdominal Pain Stated Complaint: Abd pain, vomiting Time Seen by Provider: 12/09/20 05:40 Source: patient, RN notes reviewed, old records reviewed Mode of arrival: ambulatory Limitations: no limitations - History of Present Illness Initial Comments: This is a 40-year-old female well-known to this emergency department. She presents today for evaluation of persistent nausea vomiting. Patient believes it may be related to something hormonal endometriosis, patient has recently taken off marijuana and placed on opiates. Patient states being off marijuana has not helped. Patient is convinced that it may be something to do with her endometriosis. No fevers otherwise, no surgical history MD Complaint: other (recheck NV, weakness, dehydration) -: week(s) Returns Today for: persistent/worsening pain related to initial visit, other (NV ) Symptoms Since Prior Visit: worsening pain Context: ran out of medication (unable to take medications) Associated Symptoms: chills, malaise, nausea, abdominal pain Treatments Prior to Arrival: other medications (pain), Given Pain Meds on - Related Data Home Medications Medication Instructions Recorded Confirmed Albuterol Nebulized [Ventolin 2.5 mg INHALATION RT-QID PRN 10/23/20 12/09/20 Nebulized] Ondansetron Odt [Zofran ODT] 8 mg PO BID 10/23/20 12/09/20 HYDROcodone/APAP 7.5-325MG [[place] 0.5 tab PO TID 12/08/20 12/09/20 7.5-325] Previous Rx's Medication Instructions Recorded Pantoprazole Sodium [Protonix] 40 mg PO DAILY #30 tablet. 08/27/20 Allergies Allergy/AdvReac Type Severity Reaction Status Date / Time sulfamethoxazole Allergy Rash/Hives Verified 12/09/20 07:31 [From Bactrim] trimethoprim [From Bactrim] Allergy Rash/Hives Verified 12/09/20 07:31 Review of Systems ROS Statement: Those systems with pertinent positive or pertinent negative responses have been documented in the HPI. ROS Other: All systems not noted in ROS Statement are negative. Past Medical History Past Medical History: GERD/Reflux, Hyperlipidemia, Renal Disease Additional Past Medical History / Comment(s): Gastroparesis, gastritis, esophageal tears, chronic low back pain, herniated lower discs, bilateral wrist tendonitis with R side worse, R shoulder pain past couple months, numbness to bilateral hand fingers when first wakes, migraines, instructed to sleep with HOB up 6 inches d/t heart rate dropping with sleep, vertigo, pyelonephritis, History of Any Multi-Drug Resistant Organisms: None Reported Past Surgical History: Appendectomy, Tubal Ligation Additional Past Surgical History / Comment(s): Botox injection "mouth" of stomach-R/T SPASMS , EGDs, colonoscopy, vaginal cyst drained. Past Anesthesia/Blood Transfusion Reactions: No Reported Reaction Additional Past Anesthesia/Blood Transfusion Reaction / Comment(s): Never had blood transfusion. Past Psychological History: Anxiety, Depression Smoking Status: Current every day smoker Past Alcohol Use History: None Reported Past Drug Use History: Marijuana - Past Family History Mother Family Medical History: Cancer Additional Family Medical History / Comment(s): Mother is living. She has had breast cancer and 2 back surgeries. Father Family Medical History: No Reported History Additional Family Medical History / Comment(s): Father had ETOH abuse and was manic depressive. He after a fall where he fractured his back then "drank" himself to . Brother(s) Family Medical History: Neurologic Disorder Sister(s) Family Medical History: No Reported History Son(s) Family Medical History: No Reported History Daughter(s) Family Medical History: No Reported History General Exam Limitations: no limitations General appearance: anxious Head exam: Present: atraumatic, normocephalic, normal inspection Eye exam: Present: normal appearance, PERRL, EOMI. Absent: scleral icterus, conjunctival injection, periorbital swelling ENT exam: Present: normal exam, mucous membranes moist Neck exam: Present: normal inspection. Absent: tenderness, meningismus, lymphadenopathy Respiratory exam: Present: normal lung sounds bilaterally. Absent: respiratory distress, wheezes, rales, rhonchi, stridor Cardiovascular Exam: Present: regular rate, normal rhythm, normal heart sounds. Absent: systolic murmur, diastolic murmur, rubs, gallop, clicks GI/Abdominal exam: Present: soft, normal bowel sounds. Absent: distended, tenderness, guarding, rebound, rigid Extremities exam: Present: normal inspection, full ROM, normal capillary refill. Absent: tenderness, pedal edema, joint swelling, calf tenderness Back exam: Present: normal inspection Neurological exam: Present: alert, oriented X3, CN II-XII intact Psychiatric exam: Present: normal affect, normal mood Skin exam: Present: warm, dry, intact, normal color. Absent: rash Course Vital Signs 12/09/20 12/09/20 12/09/20 05:37 06:39 08:18 Temperature 98.3 F 98.1 F Pulse Rate 83 73 72 Respiratory 22 115 H 16 Rate Blood Pressure 145/74 96/56 102/56 O2 Sat by Pulse 96 95 96 Oximetry - Reevaluation(s) Reevaluation #1: 12/09/20 05:58 Medical record is reviewed 12/09/20 05:58 ER visit from yesterday has been reviewed Reevaluation #2: Patient on reevaluation is no improvement in symptoms Patient informed of results, questions answered Patient doesn't fill comfortable going home with symptomatic treatment, severe lactic acidosis will admit for symptomatic therapy Medical Decision Making - Medical Decision Making 40 female with significant nausea vomiting vomiting syndrome abdominal pain. We will admit for symptomatic management. - Lab Data Result diagrams: 12/09/20 06:22 12/09/20 06:22 Lab Results 12/09/20 12/09/20 12/09/20 Range/Units 06:22 06:22 06:22 WBC 12.3 H (3.8-10.6) k/uL RBC 4.08 (3.80-5.40) m/uL Hgb 13.2 (11.4-16.0) gm/dL Hct 40.4 (34.0-46.0) % MCV 99.0 (80.0-100.0) fL MCH 32.5 (25.0-35.0) pg MCHC 32.8 (31.0-37.0) g/dL RDW 12.5 (11.5-15.5) % Plt Count 415 (150-450) k/uL MPV 7.6 Neutrophils % 92 % Lymphocytes % 5 % Monocytes % 2 % Eosinophils % 1 % Basophils % 0 % Neutrophils # 11.3 H (1.3-7.7) k/uL Lymphocytes # 0.6 L (1.0-4.8) k/uL Monocytes # 0.2 (0-1.0) k/uL Eosinophils # 0.1 (0-0.7) k/uL Basophils # 0.0 (0-0.2) k/uL Sodium 141 (137-145) mmol/L Potassium 4.4 (3.5-5.1) mmol/L Chloride 108 H (98-107) mmol/L Carbon Dioxide 18 L (22-30) mmol/L Anion Gap 15 mmol/L BUN 15 (7-17) mg/dL Creatinine 0.59 (0.52-1.04) mg/dL Est GFR (CKD-EPI)AfAm >90 (>60 ml/min/1.73 sqM) Est GFR (CKD-EPI)NonAf >90 (>60 ml/min/1.73 sqM) Glucose 164 H (74-99) mg/dL Lactic Ac Sepsis Rflx Plasma Lactic Acid Jose 4.4 H* (0.7-2.0) mmol/L Calcium 10.1 (8.4-10.2) mg/dL Phosphorus 4.1 (2.5-4.5) mg/dL Magnesium 1.8 (1.6-2.3) mg/dL Total Bilirubin 0.6 (0.2-1.3) mg/dL AST 18 (14-36) U/L ALT 19 (4-34) U/L Alkaline Phosphatase 73 (38-126) U/L Creatine Kinase 34 (30-135) U/L Total Protein 8.1 (6.3-8.2) g/dL Albumin 4.9 (3.5-5.0) g/dL 12/09/20 Range/Units 07:17 WBC (3.8-10.6) k/uL RBC (3.80-5.40) m/uL Hgb (11.4-16.0) gm/dL Hct (34.0-46.0) % MCV (80.0-100.0) fL MCH (25.0-35.0) pg MCHC (31.0-37.0) g/dL RDW (11.5-15.5) % Plt Count (150-450) k/uL MPV Neutrophils % % Lymphocytes % % Monocytes % % Eosinophils % % Basophils % % Neutrophils # (1.3-7.7) k/uL Lymphocytes # (1.0-4.8) k/uL Monocytes # (0-1.0) k/uL Eosinophils # (0-0.7) k/uL Basophils # (0-0.2) k/uL Sodium (137-145) mmol/L Potassium (3.5-5.1) mmol/L Chloride (98-107) mmol/L Carbon Dioxide (22-30) mmol/L Anion Gap mmol/L BUN (7-17) mg/dL Creatinine (0.52-1.04) mg/dL Est GFR (CKD-EPI)AfAm (>60 ml/min/1.73 sqM) Est GFR (CKD-EPI)NonAf (>60 ml/min/1.73 sqM) Glucose (74-99) mg/dL Lactic Ac Sepsis Rflx Y Plasma Lactic Acid Jose (0.7-2.0) mmol/L Calcium (8.4-10.2) mg/dL Phosphorus (2.5-4.5) mg/dL Magnesium (1.6-2.3) mg/dL Total Bilirubin (0.2-1.3) mg/dL AST (14-36) U/L ALT (4-34) U/L Alkaline Phosphatase (38-126) U/L Creatine Kinase (30-135) U/L Total Protein (6.3-8.2) g/dL Albumin (3.5-5.0) g/dL Disposition Clinical Impression: Abdominal pain, Vomiting, Intractable nausea and vomiting, Gastroparesis Disposition: ADMITTED IP TO THIS HOSP Condition: Fair Is patient prescribed a controlled substance at d/c from ED?: No
[2020-12-09] MEDS ORDERED: HYDROmorphone 1 MG/ML 1 ML SYRINGE IVP STA (05:52)
[2020-12-09] MEDS ORDERED: SODIUM CHLORIDE 0.9% 500 ML 500 ML IV STA (05:52)
[2020-12-09] MEDS ORDERED: LORazepam 2 MG/ML INJ IV STA (05:52)
[2020-12-09] MEDS ORDERED: SODIUM CHLORIDE 0.9% 1,000 ML IV STA ×2 (05:52)
[2020-12-09] MEDS ORDERED: ONDANSETRON 4 MG/2 ML VIAL IVP STA (05:52)
[2020-12-09] MEDS ORDERED: diphenhydrAMINE 50 MG/ML 1 ML VIAL IVP STA (05:52)
[2020-12-09] MEDS ORDERED: PANTOPRAZOLE 40 MG/10 ML VIAL IVP STA (05:52)
[2020-12-09] MEDS ORDERED: METOCLOPRAMIDE 5 MG/ML 2 ML VIAL IVP STA (05:56)
[2020-12-09 06:30] LABS: Basophils % (A) 0 %; Eosinophils # (A) 0.1 k/uL (0-0.7); Eosinophils % (A) 1 %; HCT 40.4 % (34.0-46.0); HGB 13.2 gm/dL (11.4-16.0); Lymphocytes # (A) 0.6 k/uL (1.0-4.8); Lymphocytes % (A) 5 %; MCH 32.5 pg (25.0-35.0); MCHC 32.8 g/dL (31.0-37.0); Mean Platelet Volume 7.6; Monocytes # (A) 0.2 k/uL (0-1.0); Monocytes % (A) 2 %; Neutrophils # (A) 11.3 k/uL (1.3-7.7); Neutrophils % (A) 92 %; Platelet Count 415 k/uL (150-450); RBC 4.08 m/uL (3.80-5.40); RDW 12.5 % (11.5-15.5); WBC 12.3 k/uL (3.8-10.6)
[2020-12-09 06:39] LABS: ALT 19 U/L (4-34); AST 18 U/L (14-36); African American GFR (CKD) >90 (>60 ml/min/1.73 sqM); Albumin 4.9 g/dL (3.5-5.0); Alkaline Phosphatase 73 U/L (38-126); Anion Gap 15 mmol/L; Blood Urea Nitrogen 15 mg/dL (7-17); Calcium 10.1 mg/dL (8.4-10.2); Carbon Dioxide 18 mmol/L (22-30); Chloride 108 mmol/L (98-107); Creatine Kinase 34 U/L (30-135); Glucose 164 mg/dL (74-99); Magnesium 1.8 mg/dL (1.6-2.3); Non-African American GFR(CKD) >90 (>60 ml/min/1.73 sqM); Phosphorus 4.1 mg/dL (2.5-4.5); Potassium 4.4 mmol/L (3.5-5.1); Sodium 141 mmol/L (137-145); Total Bilirubin 0.6 mg/dL (0.2-1.3); Total Protein 8.1 g/dL (6.3-8.2)
[2020-12-09] MEDS ORDERED: ONDANSETRON 4 MG/2 ML VIAL IVP PRN (07:21)
[2020-12-09] MEDS ORDERED: diphenhydrAMINE 50 MG/ML 1 ML VIAL IVP PRN (07:21)
[2020-12-09] MEDS ORDERED: MORPHINE SULFATE 4 MG/ML SYRINGE IVP STA (07:21)
[2020-12-09] MEDS ORDERED: MORPHINE SULFATE 4 MG/ML SYRINGE IVP PRN (07:21)
[2020-12-09] MEDS ORDERED: PANTOPRAZOLE 40 MG/10 ML VIAL IVP SCH (09:00)
[2020-12-09 10:57] VITALS: BP 107/66; PULSE 76; RESP 18; TEMP 98.2
[2020-12-09] MEDS ORDERED: METOCLOPRAMIDE 5 MG/ML 2 ML VIAL IVP SCH (12:00)
--- NOTE | 2020-12-09 14:08 | P.HPIM ---
History of Present Illness This is a pleasant 40-year-old female came in with intractable nausea vomiting patient had multiple such hospitalizations in the past. Patient in the past was diagnosed with gastroparesis. Although had symptoms are usually severe crampy abdominal pain during her menstrual cycle patient is in the middle of menstrual cycle now. Because of her symptomatology endometriosis was consulted and patient is supposed to see gynecology sometime next week. Patient denied any fever chills. Patient wanted to try diet as his symptoms of nausea and vomiting improved including abdominal pain and if she can tolerate soft diet patient will be discharged today. If not will continue with a symptomatic treatment. Review of Systems REVIEW OF SYSTEMS: CONSTITUTIONAL: No fever, no malaise, no fatigue. HEENT: No recent visual problems or hearing problems. Denied any sore throat. CARDIOVASCULAR: No chest pain, orthopnea, PND, no palpitations, no syncope. PULMONARY: No shortness of breath, no cough, no hemoptysis. GASTROINTESTINAL: As mentioned in HPI NEUROLOGICAL: No headaches, no weakness, no numbness. HEMATOLOGICAL: Denies any bleeding or petechiae. GENITOURINARY: Denies any burning micturition, frequency, or urgency. MUSCULOSKELETAL/RHEUMATOLOGICAL: Denies any joint pain, swelling, or any muscle pain. ENDOCRINE: Denies any polyuria or polydipsia. The rest of the 14-point review of systems is negative. Past Medical History Past Medical History: GERD/Reflux, Hyperlipidemia, Renal Disease Additional Past Medical History / Comment(s): Gastroparesis, gastritis, esophageal tears, chronic low back pain, herniated lower discs, bilateral wrist tendonitis with R side worse, R shoulder pain past couple months, numbness to bilateral hand fingers when first wakes, migraines, instructed to sleep with HOB up 6 inches d/t heart rate dropping with sleep, vertigo, pyelonephritis, History of Any Multi-Drug Resistant Organisms: None Reported Past Surgical History: Appendectomy, Tubal Ligation Additional Past Surgical History / Comment(s): Botox injection "mouth" of stomach-R/T SPASMS , EGDs, colonoscopy, vaginal cyst drained. Past Anesthesia/Blood Transfusion Reactions: No Reported Reaction Additional Past Anesthesia/Blood Transfusion Reaction / Comment(s): Never had blood transfusion. Past Psychological History: Anxiety, Depression Additional Psychological History / Comment(s): Pt resides with spouse and 3 children. She is independent. Smoking Status: Current every day smoker Past Alcohol Use History: None Reported Additional Past Alcohol Use History / Comment(s): Pt. started smoking in 1992 and smokes sometimes 1 PPD on a bad day. Has had 1 cigarette in last 3 days per patient. Past Drug Use History: Marijuana Additional Drug Use History / Comment(s): Patient states she smoked marijuana last 10/04/20 - Past Family History Mother Family Medical History: Cancer Additional Family Medical History / Comment(s): Mother is living. She has had breast cancer and 2 back surgeries. Father Family Medical History: No Reported History Additional Family Medical History / Comment(s): Father had ETOH abuse and was manic depressive. He after a fall where he fractured his back then "drank" himself to . Brother(s) Family Medical History: Neurologic Disorder Sister(s) Family Medical History: No Reported History Son(s) Family Medical History: No Reported History Daughter(s) Family Medical History: No Reported History Medications and Allergies Home Medications Medication Instructions Recorded Confirmed Type Pantoprazole Sodium [Protonix] 40 mg PO DAILY #30 tablet. 08/27/20 12/09/20 Rx Albuterol Nebulized [Ventolin 2.5 mg INHALATION RT-QID PRN 10/23/20 12/09/20 History Nebulized] Ondansetron Odt [Zofran ODT] 8 mg PO BID 10/23/20 12/09/20 History HYDROcodone/APAP 7.5-325MG [[place] 0.5 tab PO TID 12/08/20 12/09/20 History 7.5-325] Allergies Allergy/AdvReac Type Severity Reaction Status Date / Time sulfamethoxazole Allergy Rash/Hives Verified 12/09/20 07:31 [From Bactrim] trimethoprim [From Bactrim] Allergy Rash/Hives Verified 12/09/20 07:31 Physical Exam Vitals: Vital Signs Temp Pulse Pulse Resp BP BP Pulse Ox 12/09/20 09:00 98.2 F 76 18 107/66 95 12/09/20 08:18 98.1 F 72 16 102/56 96 12/09/20 06:39 73 115 H 96/56 95 12/09/20 05:37 98.3 F 83 22 145/74 96 Intake and Output 12/08/20 12/09/20 12/09/20 22:59 06:59 14:59 Other: Voiding Method Toilet Weight 66.224 kg 66.224 kg PHYSICAL EXAMINATION: GENERAL: The patient is alert and oriented x3, not in any acute distress. Well developed, well nourished. HEENT: Pupils are round and equally reacting to light. EOMI. No scleral icterus. No conjunctival pallor. Normocephalic, atraumatic. No pharyngeal erythema. No thyromegaly. CARDIOVASCULAR: S1 and S2 present. No murmurs, rubs, or gallops. PULMONARY: Chest is clear to auscultation, no wheezing or crackles. ABDOMEN: Soft, very minimal diffuse tenderness, nondistended, normoactive bowel sounds. No palpable organomegaly. MUSCULOSKELETAL: No joint swelling or deformity. EXTREMITIES: No cyanosis, clubbing, or pedal edema. NEUROLOGICAL: Gross neurological examination did not reveal any focal deficits. SKIN: No rashes. Results CBC & Chem 7: 12/09/20 06:22 12/09/20 06:22 Labs: Abnormal Lab Results - Last 24 Hours (Table) 12/09/20 12/09/20 12/09/20 Range/Units 06:22 06:22 06:22 WBC 12.3 H (3.8-10.6) k/uL Neutrophils # 11.3 H (1.3-7.7) k/uL Lymphocytes # 0.6 L (1.0-4.8) k/uL Chloride 108 H (98-107) mmol/L Carbon Dioxide 18 L (22-30) mmol/L Glucose 164 H (74-99) mg/dL Plasma Lactic Acid Jose 4.4 H* (0.7-2.0) mmol/L Thrombosis Risk Factor Assmnt - Choose All That Apply Any of the Below Risk Factors Present?: Yes Each Factor Represents 1 point: Age 41-60 years Other Risk Factors: No Other congenital or acquired thrombophilia - If yes, enter type in comment: No Thrombosis Risk Factor Assessment Total Risk Factor Score: 1 Thrombosis Risk Factor Assessment Level: Low Risk Assessment and Plan Plan: -Intractable nausea vomiting: Continue symptomatic treatment will advance her diet if she can tolerate patient was discharged. His symptoms may be related to endometriosis -Hyperlipidemia -Gastroesophageal reflux disease -Nicotine use: Counseling was provided -Depression For above-mentioned chronic medical problems patient will be resumed on appropriate home medications.
== END 2020-12-09 14:55 | disposition home or self-care (01) ==
LOC: EC 05:36 → 1SOBS 07:22
PROVIDERS: ADMIT Hospitalist; ATTEND Hospitalist
DX: R11.2 Nausea with vomiting, unspecified (principal); R10.9 Unspecified abdominal pain; E87.2 Acidosis; N80.9 Endometriosis, unspecified; E78.5 Hyperlipidemia, unspecified; K21.9 Gastro-esophageal reflux disease without esophagitis; F32.9 Major depressive disorder, single episode, unspecified; G89.29 Other chronic pain; M51.27 Other intervertebral disc displacement, lumbosacral region; R20.0 Anesthesia of skin; I99.8 Other disorder of circulatory system; F41.9 Anxiety disorder, unspecified; F17.210 Nicotine dependence, cigarettes, uncomplicated; Z71.6 Tobacco abuse counseling; Z79.891 Long term (current) use of opiate analgesic; Z79.899 Other long term (current) drug therapy; Z88.2 Allergy status to sulfonamides; Z87.448 Personal history of other diseases of urinary system; Z87.19 Personal history of other diseases of the digestive system; Z87.39 Personal history of other diseases of the musculoskeletal system and connective tissue; Z86.69 Personal history of other diseases of the nervous system and sense organs; Z90.49 Acquired absence of other specified parts of digestive tract; Z98.51 Tubal ligation status; Z98.890 Other specified postprocedural states; Z80.3 Family history of malignant neoplasm of breast; Z81.1 Family history of alcohol abuse and dependence; Z81.8 Family history of other mental and behavioral disorders; Z82.0 Family history of epilepsy and other diseases of the nervous system
CPT/HCPCS: 96376; 96361; 96374; 96375; 99285; 36415; 80053; 82550; 83605; 83735; 84100; 85025; G0378; J2060; J2270; J1200; J2765; J2405; J1170; C9113

== ENCOUNTER 2020-12-31 18:41 | Emergency (ER) | payer MEDICARE ==
[2020-12-31 19:03] VITALS: RESP 18; TEMP 97.7
[2020-12-31] MEDS ORDERED: SODIUM CHLORIDE 0.9% 2,000 ML IV STA (19:34)
[2020-12-31] MEDS ORDERED: HYDROmorphone 0.5 MG/0.5 ML SYRINGE IVP STA (19:34)
[2020-12-31] MEDS ORDERED: diphenhydrAMINE 50 MG/ML 1 ML VIAL IVP STA (19:34)
[2020-12-31] MEDS ORDERED: METOCLOPRAMIDE 5 MG/ML 2 ML VIAL IVP STA (19:34)
--- NOTE | 2020-12-31 19:36 | ED ---
General Adult HPI - General Chief complaint: Nausea/Vomiting/Diarrhea Stated complaint: Nausea, vomiting, abd pain Source: patient Mode of arrival: wheelchair Limitations: no limitations - History of Present Illness Initial comments: 40-year-old female with a past medical history of GERD, hyperlipidemia, gastroparesis presents to the emergency room for nausea vomiting. Patient states she has had nausea vomiting once yesterday. States her gastroparesis is acting up. Patient states she is on Zofran, Protonix, and [place] for this. States that something about her period Triggers her gastroparesis. Patient does have slight upper abdominal pain but states this is completely consistent with previous episodes of gastroparesis. Denies any abnormal or new pain. Denies any lower abdominal pain. Denies any fevers or chills.Patient has no other complaints at this time including shortness of breath, chest pain, headache, or visual changes. - Related Data Home Medications Medication Instructions Recorded Confirmed Albuterol Nebulized [Ventolin 2.5 mg INHALATION RT-QID PRN 10/23/20 12/09/20 Nebulized] Ondansetron Odt [Zofran ODT] 8 mg PO BID 10/23/20 12/09/20 HYDROcodone/APAP 7.5-325MG [[place] 0.5 tab PO TID 12/08/20 12/09/20 7.5-325] Previous Rx's Medication Instructions Recorded Pantoprazole Sodium [Protonix] 40 mg PO DAILY #30 tablet. 08/27/20 Allergies Allergy/AdvReac Type Severity Reaction Status Date / Time sulfamethoxazole Allergy Rash/Hives Verified 12/31/20 19:03 [From Bactrim] trimethoprim [From Bactrim] Allergy Rash/Hives Verified 12/31/20 19:03 Review of Systems ROS Statement: Those systems with pertinent positive or pertinent negative responses have been documented in the HPI. ROS Other: All systems not noted in ROS Statement are negative. Past Medical History Past Medical History: GERD/Reflux, Hyperlipidemia, Renal Disease Additional Past Medical History / Comment(s): Gastroparesis, gastritis, esophageal tears, chronic low back pain, herniated lower discs, bilateral wrist tendonitis with R side worse, R shoulder pain past couple months, numbness to bilateral hand fingers when first wakes, migraines, instructed to sleep with HOB up 6 inches d/t heart rate dropping with sleep, vertigo, pyelonephritis, History of Any Multi-Drug Resistant Organisms: None Reported Past Surgical History: Appendectomy, Tubal Ligation Additional Past Surgical History / Comment(s): Botox injection "mouth" of stomach-R/T SPASMS , EGDs, colonoscopy, vaginal cyst drained. Past Anesthesia/Blood Transfusion Reactions: No Reported Reaction Additional Past Anesthesia/Blood Transfusion Reaction / Comment(s): Never had blood transfusion. Past Psychological History: Anxiety, Depression Smoking Status: Current every day smoker Past Alcohol Use History: None Reported Past Drug Use History: Marijuana - Past Family History Mother Family Medical History: Cancer Additional Family Medical History / Comment(s): Mother is living. She has had breast cancer and 2 back surgeries. Father Family Medical History: No Reported History Additional Family Medical History / Comment(s): Father had ETOH abuse and was manic depressive. He after a fall where he fractured his back then "drank" himself to . Brother(s) Family Medical History: Neurologic Disorder Sister(s) Family Medical History: No Reported History Son(s) Family Medical History: No Reported History Daughter(s) Family Medical History: No Reported History General Exam Limitations: no limitations General appearance: alert, in no apparent distress Head exam: Present: atraumatic, normal inspection Eye exam: Present: normal appearance, PERRL, EOMI. Absent: scleral icterus, conjunctival injection ENT exam: Present: normal exam, mucous membranes moist Neck exam: Present: normal inspection, full ROM. Absent: tenderness Respiratory exam: Present: normal lung sounds bilaterally. Absent: respiratory distress, wheezes Cardiovascular Exam: Present: regular rate, normal rhythm, normal heart sounds GI/Abdominal exam: Present: soft, tenderness (minimal upper abdominal tenderness), normal bowel sounds. Absent: distended, guarding, rebound, rigid Back exam: Absent: CVA tenderness (R), CVA tenderness (L) Neurological exam: Present: alert Course Vital Signs 12/31/20 19:02 Temperature 97.7 F Pulse Rate 93 Respiratory 18 Rate Blood Pressure 131/91 O2 Sat by Pulse 96 Oximetry Medical Decision Making - Medical Decision Making Vitals are stable. No episodes of vomiting in the emergency room. CBC does show leukocytosis which is likely reactive to vomiting. Previous labs are consistent. CMP unremarkable. Patient was given a liter of fluids as well as Reglan and Benadryl. I did offer Toradol the patient refused stating this is ordered. She was given Dilaudid. On reevaluation patient is sleeping, resting comfortably. She again has not had any vomiting. She'll be given Zofran IV and discharged home. She will follow-up with her doctor. She'll return for any worsening symptoms. I discussed this case with attending Dr. Nickerson who agrees with this assessment and treatment plan. - Lab Data Result diagrams: 12/31/20 20:11 12/31/20 20:11 Lab Results 12/31/20 12/31/20 Range/Units 20:11 20:11 WBC 14.0 H (3.8-10.6) k/uL RBC 4.50 (3.80-5.40) m/uL Hgb 15.2 (11.4-16.0) gm/dL Hct 44.5 (34.0-46.0) % MCV 99.1 (80.0-100.0) fL MCH 33.7 (25.0-35.0) pg MCHC 34.1 (31.0-37.0) g/dL RDW 12.2 (11.5-15.5) % Plt Count 519 H (150-450) k/uL MPV 7.8 Neutrophils % 88 % Lymphocytes % 8 % Monocytes % 3 % Eosinophils % 0 % Basophils % 0 % Neutrophils # 12.3 H (1.3-7.7) k/uL Lymphocytes # 1.1 (1.0-4.8) k/uL Monocytes # 0.4 (0-1.0) k/uL Eosinophils # 0.1 (0-0.7) k/uL Basophils # 0.0 (0-0.2) k/uL Sodium 142 (137-145) mmol/L Potassium 4.6 (3.5-5.1) mmol/L Chloride 106 (98-107) mmol/L Carbon Dioxide 18 L (22-30) mmol/L Anion Gap 18 mmol/L BUN 14 (7-17) mg/dL Creatinine 0.98 (0.52-1.04) mg/dL Est GFR (CKD-EPI)AfAm 83 (>60 ml/min/1.73 sqM) Est GFR (CKD-EPI)NonAf 72 (>60 ml/min/1.73 sqM) Glucose 200 H (74-99) mg/dL Calcium 11.2 H (8.4-10.2) mg/dL Total Bilirubin 0.9 (0.2-1.3) mg/dL AST 23 (14-36) U/L ALT 19 (4-34) U/L Alkaline Phosphatase 87 (38-126) U/L Total Protein 9.9 H (6.3-8.2) g/dL Albumin 5.7 H (3.5-5.0) g/dL Amylase 74 (30-110) U/L Lipase 47 (23-300) U/L Disposition Clinical Impression: Nausea Disposition: HOME SELF-CARE Condition: Good Instructions (If sedation given, give patient instructions): Acute Nausea and Vomiting (ED) Additional Instructions: Please take your home medications. Follow-up with your doctor in one to 2 days. Return to the emergency room for any worsening symptoms. Is patient prescribed a controlled substance at d/c from ED?: No Referrals: Jewell Bui MD [Primary Care Provider] - 1-2 days Time of Disposition: 20:58
[2020-12-31 20:23] LABS: Basophils % (A) 0 %; Eosinophils # (A) 0.1 k/uL (0-0.7); Eosinophils % (A) 0 %; HCT 44.5 % (34.0-46.0); HGB 15.2 gm/dL (11.4-16.0); Lymphocytes # (A) 1.1 k/uL (1.0-4.8); Lymphocytes % (A) 8 %; MCH 33.7 pg (25.0-35.0); MCHC 34.1 g/dL (31.0-37.0); MCV 99.1 fL (80.0-100.0); Mean Platelet Volume 7.8; Monocytes # (A) 0.4 k/uL (0-1.0); Monocytes % (A) 3 %; Neutrophils # (A) 12.3 k/uL (1.3-7.7); Neutrophils % (A) 88 %; Platelet Count 519 k/uL (150-450); RDW 12.2 % (11.5-15.5)
[2020-12-31 20:30] LABS: Albumin 5.7 g/dL (3.5-5.0); Calcium 11.2 mg/dL (8.4-10.2); Potassium 4.6 mmol/L (3.5-5.1); Total Bilirubin 0.9 mg/dL (0.2-1.3); Total Protein 9.9 g/dL (6.3-8.2)
[2020-12-31] MEDS ORDERED: ONDANSETRON 4 MG/2 ML VIAL IVP STA (20:56)
[2020-12-31 21:30] VITALS: BP 137/90; PULSE 71
== END 2020-12-31 21:45 | disposition home or self-care (01) ==
LOC: EC 18:41
DX: R11.0 Nausea (principal); R10.10 Upper abdominal pain, unspecified; K21.9 Gastro-esophageal reflux disease without esophagitis; F17.200 Nicotine dependence, unspecified, uncomplicated; Z79.899 Other long term (current) drug therapy; Z79.891 Long term (current) use of opiate analgesic; Z88.1 Allergy status to other antibiotic agents; Z88.2 Allergy status to sulfonamides; Z98.51 Tubal ligation status; Z86.69 Personal history of other diseases of the nervous system and sense organs; Z90.49 Acquired absence of other specified parts of digestive tract
CPT/HCPCS: 36415; 80053; 82150; 83690; 85025; 99284; 96374; 96375 ×3; 96361; J1200; J2765; J2405; J1170

== ENCOUNTER 2021-01-01 03:46 | Observation (INO) | payer MEDICARE ==
[2021-01-01] MEDS ORDERED: SODIUM CHLORIDE 0.9% 500 ML 500 ML IV STA (03:59)
[2021-01-01] MEDS ORDERED: METOCLOPRAMIDE 5 MG/ML 2 ML VIAL IVP STA (04:13)
[2021-01-01] MEDS ORDERED: DICYCLOMINE 10 MG/ML 2 ML AMP IM STA ×2 (04:13→07:32)
[2021-01-01] MEDS ORDERED: SODIUM CHLORIDE 0.9% 1,000 ML IV ONE ×2 (04:14→05:50)
--- NOTE | 2021-01-01 04:27 | ED ---
Abdominal Pain HPI - General Chief Complaint: Abdominal Pain Stated Complaint: Abd Pain, Shaky Time Seen by Provider: 01/01/21 03:57 Source: patient Mode of arrival: ambulatory Limitations: no limitations - History of Present Illness Initial Comments: This patient is a 40-year-old woman with history of gastroparesis. The patient states she is having similar to flareup of her usual gastroparesis symptoms. She is having continuous nausea and vomiting as well as some diffuse abdominal pains that do resolve briefly after vomiting but recur. Patient denies fever or chills. No change in bowel movements or urination. She has not noted hematemesis. She has had a few tiny specks of possible coffee-ground material Complaint: abdominal pain -: days(s) Location: diffuse Radiation: none Severity: severe Quality: cramping, sharp Consistency: constant Improves With: nothing Worsens With: nothing Associated Symptoms: nausea, vomiting - Related Data LMP (females 10-50): this week Home Medications Medication Instructions Recorded Confirmed Albuterol Nebulized [Ventolin 2.5 mg INHALATION RT-QID PRN 10/23/20 01/01/21 Nebulized] Ondansetron Odt [Zofran ODT] 8 mg PO BID 10/23/20 01/01/21 HYDROcodone/APAP 7.5-325MG [[place] 0.5 tab PO BID PRN 12/08/20 01/01/21 7.5-325] Previous Rx's Medication Instructions Recorded Pantoprazole Sodium [Protonix] 40 mg PO DAILY #30 tablet. 08/27/20 Allergies Allergy/AdvReac Type Severity Reaction Status Date / Time sulfamethoxazole Allergy Rash/Hives Verified 01/01/21 06:47 [From Bactrim] trimethoprim [From Bactrim] Allergy Rash/Hives Verified 01/01/21 06:47 Review of Systems ROS Statement: Those systems with pertinent positive or pertinent negative responses have been documented in the HPI. ROS Other: All systems not noted in ROS Statement are negative. Constitutional: Denies: fever, chills Respiratory: Denies: cough, dyspnea Cardiovascular: Denies: chest pain, palpitations, edema Gastrointestinal: Reports: as per HPI, abdominal pain, nausea, vomiting. Denies: diarrhea, constipation, hematemesis, melena, hematochezia Genitourinary: Denies: dysuria, frequency, hematuria Musculoskeletal: Denies: back pain Skin: Denies: rash Neurological: Denies: headache, weakness, numbness Past Medical History Past Medical History: GERD/Reflux, Hyperlipidemia, Renal Disease Additional Past Medical History / Comment(s): Gastroparesis, gastritis, esophageal tears, chronic low back pain, herniated lower discs, bilateral wrist tendonitis with R side worse, R shoulder pain past couple months, numbness to bilateral hand fingers when first wakes, migraines, instructed to sleep with HOB up 6 inches d/t heart rate dropping with sleep, vertigo, pyelonephritis, History of Any Multi-Drug Resistant Organisms: None Reported Past Surgical History: Appendectomy, Tubal Ligation Additional Past Surgical History / Comment(s): Botox injection "mouth" of stomach-R/T SPASMS , EGDs, colonoscopy, vaginal cyst drained. Past Anesthesia/Blood Transfusion Reactions: No Reported Reaction Additional Past Anesthesia/Blood Transfusion Reaction / Comment(s): Never had blood transfusion. Past Psychological History: Anxiety, Depression Smoking Status: Current every day smoker Past Alcohol Use History: None Reported Past Drug Use History: Marijuana - Past Family History Mother Family Medical History: Cancer Additional Family Medical History / Comment(s): Mother is living. She has had breast cancer and 2 back surgeries. Father Family Medical History: No Reported History Additional Family Medical History / Comment(s): Father had ETOH abuse and was manic depressive. He after a fall where he fractured his back then "drank" himself to . Brother(s) Family Medical History: Neurologic Disorder Sister(s) Family Medical History: No Reported History Son(s) Family Medical History: No Reported History Daughter(s) Family Medical History: No Reported History General Exam Limitations: no limitations General appearance: alert, in no apparent distress Head exam: Present: atraumatic, normocephalic Eye exam: Present: normal appearance. Absent: scleral icterus, conjunctival injection ENT exam: Present: mucous membranes dry Neck exam: Present: normal inspection Respiratory exam: Present: normal lung sounds bilaterally. Absent: respiratory distress, wheezes, rales, rhonchi, stridor Cardiovascular Exam: Present: normal rhythm, tachycardia, normal heart sounds. Absent: systolic murmur, diastolic murmur, rubs, gallop GI/Abdominal exam: Present: soft, hypoactive bowel sounds. Absent: distended, tenderness, guarding, rebound, rigid, mass, pulsatile mass, hernia Extremities exam: Present: normal inspection, normal capillary refill. Absent: pedal edema, calf tenderness Back exam: Present: normal inspection. Absent: CVA tenderness (R), CVA tenderness (L) Neurological exam: Present: alert Skin exam: Present: warm, dry, intact, normal color. Absent: rash Course Vital Signs 01/01/21 01/01/21 01/01/21 03:49 06:16 07:50 Temperature 98.6 F 98.6 F Pulse Rate 108 H 102 H 83 Respiratory 18 16 16 Rate Blood Pressure 127/54 109/67 93/53 O2 Sat by Pulse 96 98 97 Oximetry Medical Decision Making - Medical Decision Making This patient is a 40-year-old woman with history of gastroparesis having a flareup of her usual symptoms. She has received fluids and antiemetics here with just a little relief of her symptoms. Will be admitted for further fluids and antiemetic - Lab Data Result diagrams: 01/02/21 06:11 01/02/21 06:11 Lab Results 01/01/21 01/01/21 01/01/21 Range/Units 04:31 04:31 04:31 WBC 12.7 H (3.8-10.6) k/uL RBC 4.07 (3.80-5.40) m/uL Hgb 13.4 (11.4-16.0) gm/dL Hct 40.3 (34.0-46.0) % MCV 98.8 (80.0-100.0) fL MCH 32.9 (25.0-35.0) pg MCHC 33.2 (31.0-37.0) g/dL RDW 12.8 (11.5-15.5) % Plt Count 522 H (150-450) k/uL MPV 8.1 Neutrophils % 89 % Lymphocytes % 7 % Monocytes % 3 % Eosinophils % 1 % Basophils % 0 % Neutrophils # 11.2 H (1.3-7.7) k/uL Lymphocytes # 0.8 L (1.0-4.8) k/uL Monocytes # 0.4 (0-1.0) k/uL Eosinophils # 0.1 (0-0.7) k/uL Basophils # 0.0 (0-0.2) k/uL Sodium 144 (137-145) mmol/L Potassium 4.7 (3.5-5.1) mmol/L Chloride 107 (98-107) mmol/L Carbon Dioxide 19 L (22-30) mmol/L Anion Gap 18 mmol/L BUN 20 H (7-17) mg/dL Creatinine 0.75 (0.52-1.04) mg/dL Est GFR (CKD-EPI)AfAm >90 (>60 ml/min/1.73 sqM) Est GFR (CKD-EPI)NonAf >90 (>60 ml/min/1.73 sqM) Glucose 162 H (74-99) mg/dL Calcium 10.5 H (8.4-10.2) mg/dL Total Bilirubin 0.7 (0.2-1.3) mg/dL AST 26 (14-36) U/L ALT 22 (4-34) U/L Alkaline Phosphatase 71 (38-126) U/L C-Reactive Protein <5.0 (<10.0) mg/L Total Protein 8.7 H (6.3-8.2) g/dL Albumin 5.2 H (3.5-5.0) g/dL Urine Color Yellow Urine Appearance Turbid H (Clear) Urine pH 5.5 (5.0-8.0) Ur Specific [place] 1.029 (1.001-1.035) Urine Protein 1+ H (Negative) Urine Glucose (UA) Trace H (Negative) Urine Ketones 1+ H (Negative) Urine Blood Large H (Negative) Urine Nitrite Negative (Negative) Urine Bilirubin Negative (Negative) Urine Urobilinogen <2.0 (<2.0) mg/dL Ur Leukocyte Esterase Large H (Negative) Urine RBC 6 H (0-5) /hpf Urine WBC 18 H (0-5) /hpf Ur Squamous Epith Cells 15 H (0-4) /hpf Amorphous Sediment Many H (None) /hpf Urine Bacteria Rare H (None) /hpf Hyaline Casts 72 H (0-2) /lpf Urine Mucus Many H (None) /hpf Urine HCG, Qual (Not Detectd) Coronavirus (PCR) (Not Detectd) 01/01/21 01/01/21 Range/Units 04:31 06:51 WBC (3.8-10.6) k/uL RBC (3.80-5.40) m/uL Hgb (11.4-16.0) gm/dL Hct (34.0-46.0) % MCV (80.0-100.0) fL MCH (25.0-35.0) pg MCHC (31.0-37.0) g/dL RDW (11.5-15.5) % Plt Count (150-450) k/uL MPV Neutrophils % % Lymphocytes % % Monocytes % % Eosinophils % % Basophils % % Neutrophils # (1.3-7.7) k/uL Lymphocytes # (1.0-4.8) k/uL Monocytes # (0-1.0) k/uL Eosinophils # (0-0.7) k/uL Basophils # (0-0.2) k/uL Sodium (137-145) mmol/L Potassium (3.5-5.1) mmol/L Chloride (98-107) mmol/L Carbon Dioxide (22-30) mmol/L Anion Gap mmol/L BUN (7-17) mg/dL Creatinine (0.52-1.04) mg/dL Est GFR (CKD-EPI)AfAm (>60 ml/min/1.73 sqM) Est GFR (CKD-EPI)NonAf (>60 ml/min/1.73 sqM) Glucose (74-99) mg/dL Calcium (8.4-10.2) mg/dL Total Bilirubin (0.2-1.3) mg/dL AST (14-36) U/L ALT (4-34) U/L Alkaline Phosphatase (38-126) U/L C-Reactive Protein (<10.0) mg/L Total Protein (6.3-8.2) g/dL Albumin (3.5-5.0) g/dL Urine Color Urine Appearance (Clear) Urine pH (5.0-8.0) Ur Specific [place] (1.001-1.035) Urine Protein (Negative) Urine Glucose (UA) (Negative) Urine Ketones (Negative) Urine Blood (Negative) Urine Nitrite (Negative) Urine Bilirubin (Negative) Urine Urobilinogen (<2.0) mg/dL Ur Leukocyte Esterase (Negative) Urine RBC (0-5) /hpf Urine WBC (0-5) /hpf Ur Squamous Epith Cells (0-4) /hpf Amorphous Sediment (None) /hpf Urine Bacteria (None) /hpf Hyaline Casts (0-2) /lpf Urine Mucus (None) /hpf Urine HCG, Qual Not Detected (Not Detectd) Coronavirus (PCR) Not Detected (Not Detectd) Disposition Clinical Impression: Gastroparesis, Nausea and vomiting Disposition: ADMITTED IP TO THIS HOSP Condition: Fair Is patient prescribed a controlled substance at d/c from ED?: No
[2021-01-01 04:47] LABS: Basophils % (A) 0 %; Eosinophils # (A) 0.1 k/uL (0-0.7); Eosinophils % (A) 1 %; HCT 40.3 % (34.0-46.0); HGB 13.4 gm/dL (11.4-16.0); Lymphocytes # (A) 0.8 k/uL (1.0-4.8); Lymphocytes % (A) 7 %; MCH 32.9 pg (25.0-35.0); MCHC 33.2 g/dL (31.0-37.0); MCV 98.8 fL (80.0-100.0); Mean Platelet Volume 8.1; Monocytes # (A) 0.4 k/uL (0-1.0); Monocytes % (A) 3 %; Neutrophils # (A) 11.2 k/uL (1.3-7.7); Neutrophils % (A) 89 %; Platelet Count 522 k/uL (150-450); RBC 4.07 m/uL (3.80-5.40); RDW 12.8 % (11.5-15.5); WBC 12.7 k/uL (3.8-10.6)
[2021-01-01 04:54] LABS: Amorphous Sediment,Urine Many /hpf; Appearance,Urine Turbid (Clear); Bacteria,Urine Rare /hpf; Bilirubin,Urine Negative (Negative); Blood,Urine Large (Negative); Color,Urine Yellow; Glucose,Urine (UA) Trace (Negative); Hyaline Casts,Urine 72 /lpf (0-2); Ketones,Urine 1+ (Negative); Leukocyte Esterase,Urine Large (Negative); Mucus,Urine Many /hpf; Nitrite,Urine Negative (Negative); PH, Urine 5.5 (5.0-8.0); Protein,Urine 1+ (Negative); RBC,Urine 6 /hpf (0-5); Specific Gravity,Urine 1.029 (1.001-1.035); Squamous Epithelial Cell,Urine 15 /hpf (0-4); Urobilinogen,Urine <2.0 mg/dL (<2.0); WBC,Urine 18 /hpf (0-5)
[2021-01-01 04:58] LABS: AST 26 U/L (14-36); African American GFR (CKD) >90 (>60 ml/min/1.73 sqM); Albumin 5.2 g/dL (3.5-5.0); Alkaline Phosphatase 71 U/L (38-126); Anion Gap 18 mmol/L; Blood Urea Nitrogen 20 mg/dL (7-17); C Reactive Protein <5.0 mg/L (<10.0); Calcium 10.5 mg/dL (8.4-10.2); Carbon Dioxide 19 mmol/L (22-30); Chloride 107 mmol/L (98-107); Glucose 162 mg/dL (74-99); Non-African American GFR(CKD) >90 (>60 ml/min/1.73 sqM); Potassium 4.7 mmol/L (3.5-5.1); Sodium 144 mmol/L (137-145); Total Bilirubin 0.7 mg/dL (0.2-1.3); Total Protein 8.7 g/dL (6.3-8.2)
[2021-01-01 05:02] LABS: ALT 22 U/L (4-34)
[2021-01-01] MEDS ORDERED: ONDANSETRON 4 MG/2 ML VIAL IVP STA (06:04)
[2021-01-01] MEDS ORDERED: PROCHLORPERAZINE SUPPOSITORY 25 MG SUPP RECTAL PRN (07:44)
[2021-01-01] MEDS ORDERED: MAG HYDROX/AL HYDROX/SIMETH 30 ML CUP PO PRN (07:44)
[2021-01-01] MEDS ORDERED: NALOXONE 0.4 MG/ML 1 ML VIAL IV PRN (07:44)
[2021-01-01] MEDS ORDERED: PROMETHAZINE 25 MG TAB PO PRN (07:44)
[2021-01-01] MEDS ORDERED: ACETAMINOPHEN TAB 325 MG TAB PO PRN (07:44)
[2021-01-01] MEDS ORDERED: ALBUTEROL NEBULIZED 2.5 MG/3 ML INHALATION PRN (07:46)
[2021-01-01] MEDS: PANTOPRAZOLE 40 MG/10 ML VIAL IV SCH (10:21)
[2021-01-01] MEDS: ONDANSETRON 4 MG/2 ML VIAL IVP PRN (10:21)
[2021-01-01] MEDS: SODIUM CHLORIDE 0.9% 1,000 ML IV SCH (10:22)
[2021-01-01] MEDS: HYDROmorphone 0.5 MG/0.5 ML SYRINGE IVP PRN ×3 (11:26→20:24)
--- NOTE | 2021-01-01 16:36 | P.HPIM ---
History of Present Illness H&P Date: 01/01/21 Chief Complaint: Abdominal pain, nausea and vomiting Patient is a 40-year-old female with a known history of gastroparesis, hyperlipidemia, GERD, chronic low back pain, migraine headaches and anxiety/depression as well as currently everyday smoker and occasional marijuana use presents to ER with complaints of abdominal pain and nausea and episodes of vomiting for the past 3 days and is getting worse. Patient was seen in the ER on 12/31/2020 and was discharged home with improvement in symptoms. Patient was also complaining of abdominal pain mainly upper abdomen and consistent with previous episodes of gastroparesis. Denied any diarrhea. No fever no chills. No chest pain or shortness of breath. No headache or dizziness or lightheadedness. Denied any recent illnesses. No sick contacts or recent travel. Laboratory data showed WBC 12.7, hemoglobin 13.4 and platelets 522 Sodium 144 potassium 4.7 bicarb is 19 and BUN 20 creatinine 0.75 calcium 10.7 Urinalysis showed turbid with 1+ protein and 1+ ketones and large leukocyte esterase trace with RBCs 6 and WBC is 18 and squamous epithelial cells 15 Review of Systems Constitutional: Patient denies any fever or chills . No generalized weakness or weight loss. Abdomen: Patient does have nausea vomiting and abdominal pain. No diarrhea.. Cardiovascular: Patient denies any chest pain or short of breath no palpitations. Respiratory: patient denied any cough is from production. No shortness of breath Neurologic: Patient denied any numbness or tingling headache. Musculoskeletal: Patient denies any complaints of joint swelling or deformity. Skin: Negative Psychiatric: Negative Endocrine: No heat or cold intolerance. No recent weight gain. Genitourinary: No dysuria or hematuria. All other 14 point ROS negative except the above Past Medical History Past Medical History: GERD/Reflux, Hyperlipidemia, Renal Disease Additional Past Medical History / Comment(s): Gastroparesis, gastritis, esophageal tears, chronic low back pain, herniated lower discs, bilateral wrist tendonitis with R side worse, R shoulder pain past couple months, numbness to bilateral hand fingers when first wakes, migraines, instructed to sleep with HOB up 6 inches d/t heart rate dropping with sleep, vertigo, pyelonephritis, History of Any Multi-Drug Resistant Organisms: None Reported Past Surgical History: Appendectomy, Tubal Ligation Additional Past Surgical History / Comment(s): Botox injection "mouth" of stomach-R/T SPASMS , EGDs, colonoscopy, vaginal cyst drained. Past Anesthesia/Blood Transfusion Reactions: No Reported Reaction Additional Past Anesthesia/Blood Transfusion Reaction / Comment(s): Never had blood transfusion. Past Psychological History: Anxiety, Depression Smoking Status: Current every day smoker Past Alcohol Use History: None Reported Past Drug Use History: Marijuana - Past Family History Mother Family Medical History: Cancer Additional Family Medical History / Comment(s): Mother is living. She has had breast cancer and 2 back surgeries. Father Family Medical History: No Reported History Additional Family Medical History / Comment(s): Father had ETOH abuse and was manic depressive. He after a fall where he fractured his back then "drank" himself to . Brother(s) Family Medical History: Neurologic Disorder Sister(s) Family Medical History: No Reported History Son(s) Family Medical History: No Reported History Daughter(s) Family Medical History: No Reported History Medications and Allergies Home Medications Medication Instructions Recorded Confirmed Type Pantoprazole Sodium [Protonix] 40 mg PO DAILY #30 tablet. 08/27/20 01/01/21 Rx Albuterol Nebulized [Ventolin 2.5 mg INHALATION RT-QID PRN 10/23/20 01/01/21 History Nebulized] Ondansetron Odt [Zofran ODT] 8 mg PO BID 10/23/20 01/01/21 History HYDROcodone/APAP 7.5-325MG [[place] 0.5 tab PO BID PRN 12/08/20 01/01/21 History 7.5-325] Allergies Allergy/AdvReac Type Severity Reaction Status Date / Time sulfamethoxazole Allergy Rash/Hives Verified 01/01/21 06:47 [From Bactrim] trimethoprim [From Bactrim] Allergy Rash/Hives Verified 01/01/21 06:47 Physical Exam Vitals: Vital Signs Temp Pulse Pulse Resp BP BP Pulse Ox 01/01/21 09:30 98.2 F 87 16 130/79 100 01/01/21 07:50 83 16 93/53 97 01/01/21 06:16 98.6 F 102 H 16 109/67 98 01/01/21 03:49 98.6 F 108 H 18 127/54 96 Intake and Output 12/31/20 01/01/21 01/01/21 22:59 06:59 14:59 Other: Weight 65.771 kg PHYSICAL EXAMINATION: Patient is lying in the bed comfortably, no acute distress, awake alert and oriented.. HEENT: Normocephalic. Neck is supple. Pupils reactive. Nostrils clear. Oral cavity is moist. Ears reveal no drainage. Neck reveals no JVD, carotid bruits, or thyromegaly. CHEST EXAMINATION: Trachea is central. Symmetrical expansion. Lung du clear to auscultation and percussion. CARDIAC: Normal S1, S2 with no gallops. No murmurs ABDOMEN: Soft. Bowel sounds sluggish and mild epigastric tenderness. No organomegaly. No abdominal bruits. Extremities: reveal no edema. No clubbing or cyanosis Neurologically awake, alert, oriented x3 with well-coordinated movements. No focal deficits noted Skin: No rash or skin lesions. Psychiatric: Coperative. Nonsuicidal Musculoskeletal: No joint swelling or deformity. Normal range of motion. Results CBC & Chem 7: 01/01/21 04:31 01/01/21 04:31 Labs: Abnormal Lab Results - Last 24 Hours (Table) 01/01/21 01/01/21 01/01/21 Range/Units 04:31 04:31 04:31 WBC 12.7 H (3.8-10.6) k/uL Plt Count 522 H (150-450) k/uL Neutrophils # 11.2 H (1.3-7.7) k/uL Lymphocytes # 0.8 L (1.0-4.8) k/uL Carbon Dioxide 19 L (22-30) mmol/L BUN 20 H (7-17) mg/dL Glucose 162 H (74-99) mg/dL Calcium 10.5 H (8.4-10.2) mg/dL Total Protein 8.7 H (6.3-8.2) g/dL Albumin 5.2 H (3.5-5.0) g/dL Urine Appearance Turbid H (Clear) Urine Protein 1+ H (Negative) Urine Glucose (UA) Trace H (Negative) Urine Ketones 1+ H (Negative) Urine Blood Large H (Negative) Ur Leukocyte Esterase Large H (Negative) Urine RBC 6 H (0-5) /hpf Urine WBC 18 H (0-5) /hpf Ur Squamous Epith Cells 15 H (0-4) /hpf Amorphous Sediment Many H (None) /hpf Urine Bacteria Rare H (None) /hpf Hyaline Casts 72 H (0-2) /lpf Urine Mucus Many H (None) /hpf Thrombosis Risk Factor Assmnt - DVT/VTE Prophylaxis DVT/VTE Prophylaxis: Pharmacologic Prophylaxis ordered Assessment and Plan Assessment: Intractable nausea and abdominal pain secondary to severe gastroparesis Mild leukocytosis likely reactive Abnormal urine sample unlikely UTI Hyperlipidemia GERD History of esophageal tears Chronic low back pain and herniated lower disc History of Bilateral wrist and denied this Anxiety/depression Currently everyday smoker and occasional marijuana use DVT prophylaxis plan: Patient will be continued on IV hydration and nothing by mouth until abdominal pain improves. Continue with IV pain medications and follow closely. Symptomatic management for nausea and episodes of vomiting. Continue the current management and further recommendations based on the clinical course. Time with Patient: Greater than 30
[2021-01-01] MEDS ORDERED: ONDANSETRON 4 MG TAB PO PRN (19:49)
[2021-01-01] MEDS ORDERED: ONDANSETRON ODT 4 MG TAB PO PRN (19:53)
[2021-01-01] MEDS: PROCHLORPERAZINE 5 MG TAB PO PRN (20:12)
[2021-01-02] MEDS: ONDANSETRON 4 MG/2 ML VIAL IVP PRN ×3 (01:04→23:00)
[2021-01-02] MEDS: HYDROmorphone 0.5 MG/0.5 ML SYRINGE IVP PRN ×4 (01:05→20:02)
[2021-01-02] MEDS: SODIUM CHLORIDE 0.9% 1,000 ML IV SCH ×4 (01:06→20:04)
[2021-01-02 06:40] LABS: Basophils % (A) 0 %; Eosinophils # (A) 0.1 k/uL (0-0.7); Eosinophils % (A) 1 %; HCT 29.9 % (34.0-46.0); Lymphocytes # (A) 3.1 k/uL (1.0-4.8); Lymphocytes % (A) 36 %; MCHC 33.7 g/dL (31.0-37.0); MCV 100.8 fL (80.0-100.0); Mean Platelet Volume 7.9; Monocytes # (A) 0.5 k/uL (0-1.0); Monocytes % (A) 5 %; Neutrophils % (A) 56 %; Platelet Count 291 k/uL (150-450); RBC 2.97 m/uL (3.80-5.40); RDW 12.1 % (11.5-15.5); WBC 8.8 k/uL (3.8-10.6)
[2021-01-02 06:41] LABS: HGB 10.1 gm/dL (11.4-16.0)
[2021-01-02 06:56] LABS: African American GFR (CKD) >90 (>60 ml/min/1.73 sqM); Anion Gap 8 mmol/L; Blood Urea Nitrogen 13 mg/dL (7-17); Calcium 8.5 mg/dL (8.4-10.2); Carbon Dioxide 22 mmol/L (22-30); Chloride 106 mmol/L (98-107); Glucose 93 mg/dL (74-99); Non-African American GFR(CKD) >90 (>60 ml/min/1.73 sqM); Potassium 3.5 mmol/L (3.5-5.1); Sodium 136 mmol/L (137-145)
[2021-01-02] MEDS: PANTOPRAZOLE 40 MG/10 ML VIAL IV SCH (08:18)
--- NOTE | 2021-01-02 13:10 | P.PN ---
Subjective Progress Note Date: 01/02/21 Principal diagnosis: Abdominal pain secondary to gastroparesis Patient is a 40-year-old female with a known history of gastroparesis, hyperlipidemia, GERD, chronic low back pain, migraine headaches and anxiety/depression as well as currently everyday smoker and occasional marijuana use presents to ER with complaints of abdominal pain and nausea and episodes of vomiting for the past 3 days and is getting worse. Patient was seen in the ER on 12/31/2020 and was discharged home with improvement in symptoms. Patient was also complaining of abdominal pain mainly upper abdomen and consistent with previous episodes of gastroparesis. Denied any diarrhea. No fever no chills. No chest pain or shortness of breath. No headache or dizziness or lightheadedness. Denied any recent illnesses. No sick contacts or recent travel. Laboratory data showed WBC 12.7, hemoglobin 13.4 and platelets 522 Sodium 144 potassium 4.7 bicarb is 19 and BUN 20 creatinine 0.75 calcium 10.7 Urinalysis showed turbid with 1+ protein and 1+ ketones and large leukocyte esterase trace with RBCs 6 and WBC is 18 and squamous epithelial cells 15 01/02/2021 Patient is currently resting in the bed and pain is controlled with medications. Abdominal pain is much better today. Patient was tolerating liquids this morning and will be started on soft diet and advance as tolerated. No complaints of fever or chills. No nausea vomiting or diarrhea. No chest pain or shortness of breath. Laboratory data showed WBC trending down to 8.8 today. Hemoglobin 10.1, platelets 291, sodium 136 potassium 3.5 BUN 13 and creatinine 0.56 Current medications reviewed. Objective - Vital Signs Vital signs: Vital Signs Temp 98.5 F 01/02/21 08:20 Pulse 71 01/02/21 08:20 Resp 14 01/02/21 08:20 BP 114/71 01/02/21 08:20 Pulse Ox 97 01/02/21 08:20 Intake & Output 01/01/21 01/02/21 01/02/21 18:59 06:59 18:59 Intake Total 500 Balance 500 Weight 65.771 kg Intake: Oral 500 Other: Voiding Method Toilet # Voids 2 1 - Exam PHYSICAL EXAMINATION: Patient is lying in the bed comfortably, no acute distress, awake alert and oriented.. HEENT: Normocephalic. Neck is supple. Pupils reactive. Nostrils clear. Oral cavity is moist. Ears reveal no drainage. Neck reveals no JVD, carotid bruits, or thyromegaly. CHEST EXAMINATION: Trachea is central. Symmetrical expansion. Lung du clear to auscultation and percussion. CARDIAC: Normal S1, S2 with no gallops. No murmurs ABDOMEN: Soft. Minimal epigastric tenderness. Bowel sounds normal. No organomegaly. No abdominal bruits. Extremities: reveal no edema. No clubbing or cyanosis Neurologically awake, alert, oriented x3 with well-coordinated movements. No focal deficits noted Skin: No rash or skin lesions. Psychiatric: Coperative. Nonsuicidal Musculoskeletal: No joint swelling or deformity. Normal range of motion. - Labs CBC & Chem 7: 01/02/21 06:11 01/02/21 06:11 Labs: Abnormal Lab Results - Last 24 Hours (Table) 01/02/21 01/02/21 Range/Units 06:11 06:11 RBC 2.97 L (3.80-5.40) m/uL Hgb 10.1 L D (11.4-16.0) gm/dL Hct 29.9 L (34.0-46.0) % MCV 100.8 H (80.0-100.0) fL Sodium 136 L (137-145) mmol/L Assessment and Plan Assessment: Intractable nausea and abdominal pain secondary to severe gastroparesis. Improving Mild leukocytosis likely reactive Abnormal urine sample unlikely UTI Hyperlipidemia GERD History of esophageal tears Chronic low back pain and herniated lower disc History of Bilateral wrist and denied this Anxiety/depression Currently everyday smoker and occasional marijuana use DVT prophylaxis plan: Patient will be continued on IV hydration and pain is improving slowly. Patient will be started on clear liquid diet and advance as tolerated. Continue with IV pain medications and follow closely. Symptomatic management for nausea and episodes of vomiting. Continue the current management and further recommendations based on the clinical course. Time with Patient: Greater than 30
[2021-01-02 15:39] VITALS: RESP 16
[2021-01-02] MEDS: PROCHLORPERAZINE 5 MG TAB PO PRN (18:16)
[2021-01-03] MEDS: HYDROmorphone 0.5 MG/0.5 ML SYRINGE IVP PRN ×2 (02:17→08:30)
[2021-01-03] MEDS: SODIUM CHLORIDE 0.9% 1,000 ML IV SCH ×2 (02:41→08:32)
[2021-01-03] MEDS: ONDANSETRON 4 MG/2 ML VIAL IVP PRN (08:27)
[2021-01-03] MEDS ORDERED: PANTOPRAZOLE 40 MG TABLET PO SCH (09:00)
[2021-01-03 09:34] VITALS: BP 109/71; PULSE 74; TEMP 97.7
--- NOTE | 2021-01-03 14:42 | P.DS ---
Providers Date of admission: 01/01/21 07:44 Expected date of discharge: 01/03/21 Attending physician: Etta Valentine Primary care physician: Ramya Corcoran [facility] Course: Final diagnosis Intractable nausea and abdominal pain secondary to severe gastroparesis. Improving Mild leukocytosis likely reactive Abnormal urine sample unlikely UTI Hyperlipidemia GERD History of esophageal tears Chronic low back pain and herniated lower disc History of Bilateral wrist tendinitis Anxiety/depression Currently everyday smoker and occasional marijuana use DVT prophylaxis full code Discharge disposition Patient is being discharged in a stable condition with guarded prognosis to home. Patient will follow-up with Dr. Flores upon discharge. Patient will also follow up with GI Dr. Flores in the outpatient setting. Total time taken is 35 minutes. Hospital course Abdominal pain secondary to gastroparesis Patient is a 40-year-old female with a known history of gastroparesis, hyperlipidemia, GERD, chronic low back pain, migraine headaches and anxiety/depression as well as currently everyday smoker and occasional marijuana use presents to ER with complaints of abdominal pain and nausea and episodes of vomiting for the past 3 days and is getting worse. Patient was seen in the ER on 12/31/2020 and was discharged home with improvement in symptoms. Patient was also complaining of abdominal pain mainly upper abdomen and consistent with previous episodes of gastroparesis. Denied any diarrhea. No fever no chills. No chest pain or shortness of breath. No headache or dizziness or lightheadedness. Denied any recent illnesses. No sick contacts or recent travel. Laboratory data showed WBC 12.7, hemoglobin 13.4 and platelets 522 Sodium 144 potassium 4.7 bicarb is 19 and BUN 20 creatinine 0.75 calcium 10.7 Urinalysis showed turbid with 1+ protein and 1+ ketones and large leukocyte esterase trace with RBCs 6 and WBC is 18 and squamous epithelial cells 15 01/02/2021 Patient is currently resting in the bed and pain is controlled with medications. Abdominal pain is much better today. Patient was tolerating liquids this morning and will be started on soft diet and advance as tolerated. No complaints of fever or chills. No nausea vomiting or diarrhea. No chest pain or shortness of breath. Laboratory data showed WBC trending down to 8.8 today. Hemoglobin 10.1, platelets 291, sodium 136 potassium 3.5 BUN 13 and creatinine 0.56 01/03/2021 Patient is seen and evaluated in follow-up with no acute overnight issues. Patient continues to have some mild abdominal discomfort although states much improved and is currently tolerating a low fiber diet with no reports of nausea or vomiting noted. Patient instructed to continue with low fiber diet and advance slowly as tolerated. Patient does follow with GI Dr. Flores in the outpatient setting and instructed to continue doing so. Patient is asking to go home today. Currently no reports of chest pain, shortness of breath, or palpitations. Patient is afebrile. No reports of nausea or vomiting and patient is tolerating diet. Guarded prognosis. On exam vital signs are stable. Temp is 97.7F, pulse is 74, respirations are 16, blood pressure is 109/71, oxygen saturation is 96% on room air. Cardio S1, S2 are muffled. Respiratory shows diminished breath sounds at the bases with no wheezing or rhonchi noted. Abdomen is soft and nontender. Nervous system shows no focal deficits. Please refer to medication reconciliation sheet for a list of medications. Patient Condition at Discharge: Fair Plan - Discharge Summary Discharge Rx Participant: No New Discharge Prescriptions: Continue Pantoprazole Sodium [Protonix] 40 mg PO DAILY #30 tablet. Albuterol Nebulized [Ventolin Nebulized] 2.5 mg INHALATION RT-QID PRN PRN Reason: Shortness Of Breath Ondansetron Odt [Zofran ODT] 8 mg PO BID HYDROcodone/APAP 7.5-325MG [Jay 7.5-325] 0.5 tab PO BID PRN PRN Reason: Pain Discharge Medication List Pantoprazole Sodium [Protonix] 40 mg PO DAILY #30 tablet. 08/27/20 [Rx] Albuterol Nebulized [Ventolin Nebulized] 2.5 mg INHALATION RT-QID PRN 10/23/20 [History] Ondansetron Odt [Zofran ODT] 8 mg PO BID 10/23/20 [History] HYDROcodone/APAP 7.5-325MG [Jay 7.5-325] 0.5 tab PO BID PRN 12/08/20 [History] Follow up Appointment(s)/Referral(s): Jewell Bui MD [Primary Care Provider] - 1-2 days Lavonne Flores MD [STAFF PHYSICIAN] - 3 Weeks Activity/Diet/Wound Care/Special Instructions: Activity Limited until follow-up Follow-up with primary care provider upon discharge Follow-up with GI in the outpatient setting Continue with low fiber diet and advance slowly as tolerated Discharge Disposition: HOME SELF-CARE
== END 2021-01-03 11:03 | disposition home or self-care (01) ==
LOC: EC 03:46 → 6NMEDSUR 07:44 → 6PED 08:50
PROVIDERS: ADMIT Hospitalist; ATTEND Hospitalist
DX: K31.84 Gastroparesis (principal); D72.829 Elevated white blood cell count, unspecified; R82.90 Unspecified abnormal findings in urine; E78.5 Hyperlipidemia, unspecified; K21.9 Gastro-esophageal reflux disease without esophagitis; G89.29 Other chronic pain; M51.27 Other intervertebral disc displacement, lumbosacral region; M77.8 Other enthesopathies, not elsewhere classified; F41.9 Anxiety disorder, unspecified; F32.9 Major depressive disorder, single episode, unspecified; F17.200 Nicotine dependence, unspecified, uncomplicated; M25.511 Pain in right shoulder; R20.0 Anesthesia of skin; R00.8 Other abnormalities of heart beat; Z20.822 Contact with and (suspected) exposure to COVID-19; Z79.899 Other long term (current) drug therapy; Z88.2 Allergy status to sulfonamides; Z87.448 Personal history of other diseases of urinary system; Z87.19 Personal history of other diseases of the digestive system; Z86.69 Personal history of other diseases of the nervous system and sense organs; Z90.49 Acquired absence of other specified parts of digestive tract; Z98.51 Tubal ligation status; Z80.3 Family history of malignant neoplasm of breast; Z81.1 Family history of alcohol abuse and dependence; Z81.8 Family history of other mental and behavioral disorders; Z82.69 Family history of other diseases of the musculoskeletal system and connective tissue
CPT/HCPCS: 96361 ×3; 96374 ×2; 96375 ×2; 96376 ×3; 96372; 99284; 36415; 80053; 80048; 85025 ×2; 86140; 81001; 81025; 87635; G0378 ×3; S0183 ×2; J0500; J2765; J2405 ×3; C9113 ×2; J1170 ×3

== ENCOUNTER 2021-01-31 18:51 | Emergency (ER) | payer MEDICARE ==
[2021-01-31 19:04] VITALS: TEMP 97.5
[2021-01-31] MEDS ORDERED: SODIUM CHLORIDE 0.9% 500 ML 500 ML IV STA (20:01)
[2021-01-31] MEDS ORDERED: SODIUM CHLORIDE 0.9% 1,000 ML IV STA (20:01)
[2021-01-31] MEDS ORDERED: ONDANSETRON 4 MG/2 ML VIAL IVP STA ×2 (20:01→22:56)
[2021-01-31] MEDS ORDERED: MORPHINE SULFATE 4 MG/ML SYRINGE IVP STA (20:02)
[2021-01-31] MEDS ORDERED: DICYCLOMINE 10 MG/ML 2 ML AMP IM STA (20:02)
--- NOTE | 2021-01-31 20:17 | ED ---
Nausea/Vomiting/Diarrhea HPI - General Chief complaint: Nausea/Vomiting/Diarrhea Stated complaint: Abd Pain, Vomiting Time Seen by Provider: 01/31/21 19:52 Source: patient Mode of arrival: ambulatory Limitations: no limitations - History of Present Illness Initial comments: Patient is a 40-year-old female, with history of gastroparesis, presenting to [facility] emergency Department with complaints of abdominal pain, nausea and vomiting that started about 7 AM this morning. Patient has been here multiple occasions for same complaint. Patient states she is unable to keep any fluids or medicines down. She states her abdominal pain is everywhere, no specific area. She has history of appendectomy, tubal ligation, no other abdominal surgeries. She did have some diarrhea today which is normal when she is having these episodes. She denies any fever or chills, no chest pain or shortness of breath. She has no further complaints at this time. Upon arrival to the ER, her vitals are stable. - Related Data Home Medications Medication Instructions Recorded Confirmed Albuterol Nebulized [Ventolin 2.5 mg INHALATION RT-QID PRN 10/23/20 01/01/21 Nebulized] Ondansetron Odt [Zofran ODT] 8 mg PO BID 10/23/20 01/01/21 HYDROcodone/APAP 7.5-325MG [[place] 0.5 tab PO BID PRN 12/08/20 01/01/21 7.5-325] Previous Rx's Medication Instructions Recorded Pantoprazole Sodium [Protonix] 40 mg PO DAILY #30 tablet. 08/27/20 Allergies Allergy/AdvReac Type Severity Reaction Status Date / Time sulfamethoxazole Allergy Rash/Hives Verified 01/31/21 19:04 [From Bactrim] trimethoprim [From Bactrim] Allergy Rash/Hives Verified 01/31/21 19:04 Review of Systems ROS Statement: Those systems with pertinent positive or pertinent negative responses have been documented in the HPI. ROS Other: All systems not noted in ROS Statement are negative. Past Medical History Past Medical History: GERD/Reflux, Hyperlipidemia, Renal Disease Additional Past Medical History / Comment(s): Gastroparesis, gastritis, esophage al tears, chronic low back pain, herniated lower discs, bilateral wrist tendonitis with R side worse, R shoulder pain past couple months, numbness to bilateral hand fingers when first wakes, migraines, instructed to sleep with HOB up 6 inches d/t heart rate dropping with sleep, vertigo, pyelonephritis, History of Any Multi-Drug Resistant Organisms: None Reported Past Surgical History: Appendectomy, Tubal Ligation Additional Past Surgical History / Comment(s): Botox injection "mouth" of stomach-R/T SPASMS , EGDs, colonoscopy, vaginal cyst drained. Past Anesthesia/Blood Transfusion Reactions: No Reported Reaction Additional Past Anesthesia/Blood Transfusion Reaction / Comment(s): Never had blood transfusion. Past Psychological History: Anxiety, Depression Smoking Status: Current every day smoker Past Alcohol Use History: None Reported Past Drug Use History: Marijuana - Past Family History Mother Family Medical History: Cancer Additional Family Medical History / Comment(s): Mother is living. She has had breast cancer and 2 back surgeries. Father Family Medical History: No Reported History Additional Family Medical History / Comment(s): Father had ETOH abuse and was manic depressive. He after a fall where he fractured his back then "drank" himself to . Brother(s) Family Medical History: Neurologic Disorder Sister(s) Family Medical History: No Reported History Son(s) Family Medical History: No Reported History Daughter(s) Family Medical History: No Reported History General Exam - General Exam Comments Initial Comments: GENERAL: Patient is well-developed and well-nourished. Patient is nontoxic and in moderate distress. HEAD: Atraumatic, normocephalic. EYES: Pupils equal round and reactive to light, extraocular movements intact, sclera anicteric, conjunctiva are normal. Eyelids were unremarkable. ENT: TMs normal, nares patent, oropharynx clear without exudates. Moist mucous membranes. NECK: Normal range of motion, supple without lymphadenopathy or JVD. LUNGS: Unlabored respirations. Breath sounds clear to auscultation bilaterally and equal. No wheezes rales or rhonchi. HEART: Regular rate and rhythm without murmurs, rubs or gallops. ABDOMEN: Soft, generalized abdominal tenderness, no specific area, normoactive bowel sounds. No guarding, no rebound. No masses appreciated. : Deferred MUSCULOSKELETAL: Normal extremities with adequate strength and normal range of motion, no pitting or edema. No clubbing or cyanosis. NEUROLOGICAL: Patient is alert and oriented x 3. Motor and sensory are also intact. Cranial nerves II through XII grossly intact. Symmetrical smile. Normal speech, normal gait. PSYCH: Normal mood, normal affect. SKIN: Warm, Dry, normal turgor, no rashes or lesions noted. Limitations: no limitations Course Vital Signs 01/31/21 01/31/21 19:02 22:14 Temperature 97.5 F L Pulse Rate 102 H 68 Respiratory 18 16 Rate Blood Pressure 139/93 128/77 O2 Sat by Pulse 96 98 Oximetry Medical Decision Making - Medical Decision Making Patient is a 40-year-old female with history of gastroparesis, presenting with abdominal pain, nausea and vomiting that started this morning. Patient is well- known to this ER, here multiple occasions for same complaint. She has generalized abdominal tenderness, no specific area of pain. No fevers. Labs show white count 18.8, lipase is normal at 27. We requested a UA on multiple occasions, patient would not urinate for us. Patient was given fluids, pain control and Zofran. Upon reexamination, patient sleeping comfortably. When I did awake patient, she started complaining of increase in pain. I discussed with patient that she has chronic abdominal pain and she is to follow-up with her regular doctors. Patient is stable for discharge. Patient is in agreement with this plan of care. Return parameters were discussed with the patient and elham batres verbalized understanding. Case discussed with Dr. Pulido. - Lab Data Result diagrams: 01/31/21 20:39 01/31/21 20:39 Lab Results 01/31/21 01/31/21 Range/Units 20:39 20:39 WBC 18.8 H (3.8-10.6) k/uL RBC 4.41 (3.80-5.40) m/uL Hgb 14.9 D (11.4-16.0) gm/dL Hct 43.0 (34.0-46.0) % MCV 97.7 (80.0-100.0) fL MCH 33.8 (25.0-35.0) pg MCHC 34.6 (31.0-37.0) g/dL RDW 11.9 (11.5-15.5) % Plt Count 462 H (150-450) k/uL MPV 7.5 Neutrophils % 90 % Lymphocytes % 6 % Monocytes % 3 % Eosinophils % 1 % Basophils % 0 % Neutrophils # 16.8 H (1.3-7.7) k/uL Lymphocytes # 1.1 (1.0-4.8) k/uL Monocytes # 0.5 (0-1.0) k/uL Eosinophils # 0.3 (0-0.7) k/uL Basophils # 0.0 (0-0.2) k/uL Sodium 141 (137-145) mmol/L Potassium 4.7 (3.5-5.1) mmol/L Chloride 104 (98-107) mmol/L Carbon Dioxide 22 (22-30) mmol/L Anion Gap 15 mmol/L BUN 12 (7-17) mg/dL Creatinine 0.68 (0.52-1.04) mg/dL Est GFR (CKD-EPI)AfAm >90 (>60 ml/min/1.73 sqM) Est GFR (CKD-EPI)NonAf >90 (>60 ml/min/1.73 sqM) Glucose 180 H (74-99) mg/dL Calcium 10.5 H (8.4-10.2) mg/dL Total Bilirubin 0.7 (0.2-1.3) mg/dL AST 28 (14-36) U/L ALT 18 (4-34) U/L Alkaline Phosphatase 81 (38-126) U/L Total Protein 8.8 H (6.3-8.2) g/dL Albumin 5.3 H (3.5-5.0) g/dL Lipase 27 (23-300) U/L Disposition Clinical Impression: Nausea and vomiting, Abdominal pain Disposition: HOME SELF-CARE Condition: Stable Instructions (If sedation given, give patient instructions): Acute Nausea and Vomiting (ED) Additional Instructions: Please return to the Emergency Department if symptoms worsen or any other concerns. May use your Zofran for any additional nausea. Please follow-up with your regular doctor concerning your chronic abdominal pain. Is patient prescribed a controlled substance at d/c from ED?: No Referrals: Jewell Bui MD [Primary Care Provider] - 1-2 days
[2021-01-31 20:45] LABS: Basophils % (A) 0 %; Eosinophils # (A) 0.3 k/uL (0-0.7); Eosinophils % (A) 1 %; Lymphocytes # (A) 1.1 k/uL (1.0-4.8); Lymphocytes % (A) 6 %; MCH 33.8 pg (25.0-35.0); MCHC 34.6 g/dL (31.0-37.0); MCV 97.7 fL (80.0-100.0); Mean Platelet Volume 7.5; Monocytes # (A) 0.5 k/uL (0-1.0); Monocytes % (A) 3 %; Neutrophils # (A) 16.8 k/uL (1.3-7.7); Neutrophils % (A) 90 %; Platelet Count 462 k/uL (150-450); RBC 4.41 m/uL (3.80-5.40); RDW 11.9 % (11.5-15.5); WBC 18.8 k/uL (3.8-10.6)
[2021-01-31 20:48] LABS: HGB 14.9 gm/dL (11.4-16.0)
[2021-01-31 20:54] LABS: ALT 18 U/L (4-34); AST 28 U/L (14-36); African American GFR (CKD) >90 (>60 ml/min/1.73 sqM); Albumin 5.3 g/dL (3.5-5.0); Alkaline Phosphatase 81 U/L (38-126); Anion Gap 15 mmol/L; Blood Urea Nitrogen 12 mg/dL (7-17); Calcium 10.5 mg/dL (8.4-10.2); Carbon Dioxide 22 mmol/L (22-30); Chloride 104 mmol/L (98-107); Glucose 180 mg/dL (74-99); Lipase 27 U/L (23-300); Non-African American GFR(CKD) >90 (>60 ml/min/1.73 sqM); Sodium 141 mmol/L (137-145); Total Bilirubin 0.7 mg/dL (0.2-1.3); Total Protein 8.8 g/dL (6.3-8.2)
[2021-01-31 21:04] LABS: Potassium 4.7 mmol/L (3.5-5.1)
[2021-01-31] MEDS ORDERED: METOCLOPRAMIDE 5 MG/ML 2 ML VIAL IVP STA (21:48)
[2021-01-31] MEDS ORDERED: HYDROmorphone 0.5 MG/0.5 ML SYRINGE IVP STA (21:48)
[2021-01-31 22:16] VITALS: BP 128/77; PULSE 68; RESP 16
== END 2021-01-31 23:19 | disposition home or self-care (01) ==
LOC: EC 18:51
DX: R11.2 Nausea with vomiting, unspecified (principal); R10.9 Unspecified abdominal pain; E78.5 Hyperlipidemia, unspecified; F17.200 Nicotine dependence, unspecified, uncomplicated; K21.9 Gastro-esophageal reflux disease without esophagitis
CPT/HCPCS: 80053; 83690; 85025; 99284; 96374; 96375; 96376; 96361; 96372; J2270; J0500; J2765; J2405; J1170

== ENCOUNTER 2021-02-28 05:40 | Emergency (ER) | payer MEDICARE ==
[2021-02-28 05:45] VITALS: RESP 18; TEMP 97.9
[2021-02-28] MEDS ORDERED: ONDANSETRON 4 MG/2 ML VIAL IVP STA (06:07)
[2021-02-28] MEDS ORDERED: SODIUM CHLORIDE 0.9% 1,000 ML IV STA (06:07)
[2021-02-28] MEDS ORDERED: PANTOPRAZOLE 40 MG/10 ML VIAL IVP STA (06:07)
[2021-02-28] MEDS ORDERED: MORPHINE SULFATE 4 MG/ML SYRINGE IV STA (06:07)
[2021-02-28] MEDS ORDERED: HYDROmorphone 1 MG/ML 1 ML SYRINGE IVP STA (06:13)
[2021-02-28 06:42] LABS: Basophils % (A) 0 %; Eosinophils # (A) 0.1 k/uL (0-0.7); Eosinophils % (A) 1 %; HCT 40.1 % (34.0-46.0); HGB 13.9 gm/dL (11.4-16.0); Lymphocytes # (A) 2.7 k/uL (1.0-4.8); Lymphocytes % (A) 27 %; MCH 33.2 pg (25.0-35.0); MCHC 34.6 g/dL (31.0-37.0); MCV 95.9 fL (80.0-100.0); Mean Platelet Volume 7.3; Monocytes # (A) 0.7 k/uL (0-1.0); Monocytes % (A) 7 %; Neutrophils # (A) 6.5 k/uL (1.3-7.7); Neutrophils % (A) 65 %; Platelet Count 419 k/uL (150-450); RBC 4.18 m/uL (3.80-5.40); RDW 11.5 % (11.5-15.5); WBC 10.1 k/uL (3.8-10.6)
[2021-02-28 06:46] LABS: ALT 13 U/L (4-34); AST 21 U/L (14-36); African American GFR (CKD) >90 (>60 ml/min/1.73 sqM); Albumin 5.3 g/dL (3.5-5.0); Alkaline Phosphatase 66 U/L (38-126); Anion Gap 15 mmol/L; Blood Urea Nitrogen 29 mg/dL (7-17); Calcium 10.2 mg/dL (8.4-10.2); Carbon Dioxide 28 mmol/L (22-30); Chloride 92 mmol/L (98-107); Glucose 112 mg/dL (74-99); Lipase 40 U/L (23-300); Non-African American GFR(CKD) >90 (>60 ml/min/1.73 sqM); Potassium 3.8 mmol/L (3.5-5.1); Sodium 135 mmol/L (137-145); Total Protein 8.8 g/dL (6.3-8.2)
--- NOTE | 2021-02-28 06:47 | ED ---
Abdominal Pain HPI - General Chief Complaint: Abdominal Pain Stated Complaint: vomiting Time Seen by Provider: 02/28/21 06:06 Source: patient Mode of arrival: wheelchair Limitations: no limitations - History of Present Illness Initial Comments: 40-year-old female presents emergency Department with a chief complaint of abdominal pain. Patient has history of gastroparesis is presenting to the emergency department for 4 days of nausea and multiple episodes of nonbloody is nonbloody vomiting. She reports epigastric abdominal pain that is typical for h er whenever she has exacerbations of her gastroparesis. She denies any diarrhea or constipation. Denies any fevers or chills. Denies any back pain chest pain shortness of breath. Denies hematuria, hematochezia or melena. Denies any urinary or vaginal symptoms. - Related Data Home Medications Medication Instructions Recorded Confirmed Albuterol Nebulized [Ventolin 2.5 mg INHALATION RT-QID PRN 10/23/20 01/01/21 Nebulized] Ondansetron Odt [Zofran ODT] 8 mg PO BID 10/23/20 01/01/21 HYDROcodone/APAP 7.5-325MG [[place] 0.5 tab PO BID PRN 12/08/20 01/01/21 7.5-325] Previous Rx's Medication Instructions Recorded Pantoprazole Sodium [Protonix] 40 mg PO DAILY #30 tablet. 08/27/20 Allergies Allergy/AdvReac Type Severity Reaction Status Date / Time sulfamethoxazole Allergy Rash/Hives Verified 02/28/21 05:45 [From Bactrim] trimethoprim [From Bactrim] Allergy Rash/Hives Verified 02/28/21 05:45 Review of Systems ROS Statement: Those systems with pertinent positive or pertinent negative responses have been documented in the HPI. ROS Other: All systems not noted in ROS Statement are negative. Past Medical History Past Medical History: GERD/Reflux, Hyperlipidemia, Renal Disease Additional Past Medical History / Comment(s): Gastroparesis, gastritis, esophageal tears, chronic low back pain, herniated lower discs, bilateral wrist tendonitis with R side worse, R shoulder pain past couple months, numbness to bilateral hand fingers when first wakes, migraines, instructed to sleep with HOB up 6 inches d/t heart rate dropping with sleep, vertigo, pyelonephritis, History of Any Multi-Drug Resistant Organisms: None Reported Past Surgical History: Appendectomy, Tubal Ligation Additional Past Surgical History / Comment(s): Botox injection "mouth" of stomach-R/T SPASMS , EGDs, colonoscopy, vaginal cyst drained. Past Anesthesia/Blood Transfusion Reactions: No Reported Reaction Additional Past Anesthesia/Blood Transfusion Reaction / Comment(s): Never had blood transfusion. Past Psychological History: Anxiety, Bipolar, Depression Smoking Status: Current every day smoker Past Alcohol Use History: None Reported Past Drug Use History: Marijuana - Past Family History Mother Family Medical History: Cancer Additional Family Medical History / Comment(s): Mother is living. She has had breast cancer and 2 back surgeries. Father Family Medical History: No Reported History Additional Family Medical History / Comment(s): Father had ETOH abuse and was manic depressive. He after a fall where he fractured his back then "drank" himself to . Brother(s) Family Medical History: Neurologic Disorder Sister(s) Family Medical History: No Reported History Son(s) Family Medical History: No Reported History Daughter(s) Family Medical History: No Reported History General Exam Limitations: no limitations General appearance: alert, in no apparent distress Head exam: Present: atraumatic, normocephalic, normal inspection Eye exam: Present: normal appearance, PERRL, EOMI Pupils: Present: normal accommodation ENT exam: Present: normal exam, normal oropharynx, mucous membranes moist Neck exam: Present: normal inspection, full ROM. Absent: tenderness Respiratory exam: Present: normal lung sounds bilaterally. Absent: respiratory distress, wheezes, rales Cardiovascular Exam: Present: regular rate, normal rhythm, normal heart sounds GI/Abdominal exam: Present: soft, tenderness (Mostly epigastric abdominal tenderness), normal bowel sounds. Absent: distended, guarding, rebound, rigid Extremities exam: Present: normal inspection, full ROM, normal capillary refill. Absent: tenderness, pedal edema, joint swelling Back exam: Present: normal inspection, full ROM, tenderness, CVA tenderness (L) (Mild). Absent: CVA tenderness (R) Neurological exam: Present: alert, oriented X3, normal gait Psychiatric exam: Present: normal affect, normal mood Skin exam: Present: warm, dry, intact, normal color Course Vital Signs 02/28/21 05:43 Temperature 97.9 F Pulse Rate 88 Respiratory 18 Rate Blood Pressure 132/80 O2 Sat by Pulse 94 L Oximetry Medical Decision Making - Medical Decision Making 40-year-old female history gastric paresis presents to the emergency department with a chief complaint of nausea and vomiting. On physical examination, epigastric abdominal pain. Patient was given antiemetics, analgesia, IV fluids. CBC unremarkable. CMP reveals elevated BUS 29. Elevated total protein and albumin. +2 ketones. This likely suggesting dehydration. She also complained of some constipation but the KUB is unremarkable. On reevaluation, patient reports improvement in symptoms and wants to be discharged. Strict return para meters were thoroughly discussed with patient was understanding and agreeable. Case discussed with - Lab Data Result diagrams: 02/28/21 06:07 02/28/21 06:07 Lab Results 02/28/21 02/28/21 02/28/21 Range/Units 06:07 06:07 06:07 WBC 10.1 (3.8-10.6) k/uL RBC 4.18 (3.80-5.40) m/uL Hgb 13.9 (11.4-16.0) gm/dL Hct 40.1 (34.0-46.0) % MCV 95.9 (80.0-100.0) fL MCH 33.2 (25.0-35.0) pg MCHC 34.6 (31.0-37.0) g/dL RDW 11.5 (11.5-15.5) % Plt Count 419 (150-450) k/uL MPV 7.3 Neutrophils % 65 % Lymphocytes % 27 % Monocytes % 7 % Eosinophils % 1 % Basophils % 0 % Neutrophils # 6.5 (1.3-7.7) k/uL Lymphocytes # 2.7 (1.0-4.8) k/uL Monocytes # 0.7 (0-1.0) k/uL Eosinophils # 0.1 (0-0.7) k/uL Basophils # 0.0 (0-0.2) k/uL Sodium 135 L (137-145) mmol/L Potassium 3.8 (3.5-5.1) mmol/L Chloride 92 L (98-107) mmol/L Carbon Dioxide 28 (22-30) mmol/L Anion Gap 15 mmol/L BUN 29 H (7-17) mg/dL Creatinine 0.73 (0.52-1.04) mg/dL Est GFR (CKD-EPI)AfAm >90 (>60 ml/min/1.73 sqM) Est GFR (CKD-EPI)NonAf >90 (>60 ml/min/1.73 sqM) Glucose 112 H (74-99) mg/dL Calcium 10.2 (8.4-10.2) mg/dL Total Bilirubin 1.0 (0.2-1.3) mg/dL AST 21 (14-36) U/L ALT 13 (4-34) U/L Alkaline Phosphatase 66 (38-126) U/L Total Protein 8.8 H (6.3-8.2) g/dL Albumin 5.3 H (3.5-5.0) g/dL Lipase 40 (23-300) U/L Urine Color Yellow Urine Appearance Cloudy H (Clear) Urine pH 6.0 (5.0-8.0) Ur Specific [place] 1.035 (1.001-1.035) Urine Protein 1+ H (Negative) Urine Glucose (UA) Negative (Negative) Urine Ketones 2+ H (Negative) Urine Blood Moderate H (Negative) Urine Nitrite Negative (Negative) Urine Bilirubin Negative (Negative) Urine Urobilinogen <2.0 (<2.0) mg/dL Ur Leukocyte Esterase Negative (Negative) Urine RBC 8 H (0-5) /hpf Urine WBC 1 (0-5) /hpf Ur Squamous Epith Cells 4 (0-4) /hpf Amorphous Sediment Rare H (None) /hpf Hyaline Casts 1 (0-2) /lpf Urine Mucus Many H (None) /hpf Urine HCG, Qual (Not Detectd) 02/28/21 Range/Units 06:08 WBC (3.8-10.6) k/uL RBC (3.80-5.40) m/uL Hgb (11.4-16.0) gm/dL Hct (34.0-46.0) % MCV (80.0-100.0) fL MCH (25.0-35.0) pg MCHC (31.0-37.0) g/dL RDW (11.5-15.5) % Plt Count (150-450) k/uL MPV Neutrophils % % Lymphocytes % % Monocytes % % Eosinophils % % Basophils % % Neutrophils # (1.3-7.7) k/uL Lymphocytes # (1.0-4.8) k/uL Monocytes # (0-1.0) k/uL Eosinophils # (0-0.7) k/uL Basophils # (0-0.2) k/uL Sodium (137-145) mmol/L Potassium (3.5-5.1) mmol/L Chloride (98-107) mmol/L Carbon Dioxide (22-30) mmol/L Anion Gap mmol/L BUN (7-17) mg/dL Creatinine (0.52-1.04) mg/dL Est GFR (CKD-EPI)AfAm (>60 ml/min/1.73 sqM) Est GFR (CKD-EPI)NonAf (>60 ml/min/1.73 sqM) Glucose (74-99) mg/dL Calcium (8.4-10.2) mg/dL Total Bilirubin (0.2-1.3) mg/dL AST (14-36) U/L ALT (4-34) U/L Alkaline Phosphatase (38-126) U/L Total Protein (6.3-8.2) g/dL Albumin (3.5-5.0) g/dL Lipase (23-300) U/L Urine Color Urine Appearance (Clear) Urine pH (5.0-8.0) Ur Specific [place] (1.001-1.035) Urine Protein (Negative) Urine Glucose (UA) (Negative) Urine Ketones (Negative) Urine Blood (Negative) Urine Nitrite (Negative) Urine Bilirubin (Negative) Urine Urobilinogen (<2.0) mg/dL Ur Leukocyte Esterase (Negative) Urine RBC (0-5) /hpf Urine WBC (0-5) /hpf Ur Squamous Epith Cells (0-4) /hpf Amorphous Sediment (None) /hpf Hyaline Casts (0-2) /lpf Urine Mucus (None) /hpf Urine HCG, Qual Not Detected (Not Detectd) Disposition Clinical Impression: Nausea and vomiting, Dehydration Disposition: HOME SELF-CARE Condition: Stable Instructions (If sedation given, give patient instructions): Abdominal Pain (ED) Additional Instructions: Please return to the Emergency Department if symptoms worsen or any other concerns. Is patient prescribed a controlled substance at d/c from ED?: No Referrals: Jewell Bui MD [Primary Care Provider] - 1-2 days Time of Disposition: 07:31
[2021-02-28 07:08] LABS: Amorphous Sediment,Urine Rare /hpf; Appearance,Urine Cloudy (Clear); Bilirubin,Urine Negative (Negative); Blood,Urine Moderate (Negative); Color,Urine Yellow; Glucose,Urine (UA) Negative (Negative); Hyaline Casts,Urine 1 /lpf (0-2); Ketones,Urine 2+ (Negative); Leukocyte Esterase,Urine Negative (Negative); Mucus,Urine Many /hpf; Nitrite,Urine Negative (Negative); Protein,Urine 1+ (Negative); RBC,Urine 8 /hpf (0-5); Specific Gravity,Urine 1.035 (1.001-1.035); Squamous Epithelial Cell,Urine 4 /hpf (0-4); Urobilinogen,Urine <2.0 mg/dL (<2.0); WBC,Urine 1 /hpf (0-5)
--- NOTE | 2021-02-28 07:14 | XR ---
EXAM: XR Abdomen, 2 Views CLINICAL HISTORY: Reason: abdominal pain TECHNIQUE: Frontal view of the abdomen/pelvis with upright view of the abdomen. COMPARISON: No relevant prior studies available. FINDINGS: Intraperitoneal space: No free air. Gastrointestinal tract: Bowel gas pattern is nonobstructive. Well- formed stool seen within the colon. Bones/joints: Unremarkable. IMPRESSION: No evidence of abdominal abnormality.
[2021-02-28] MEDS ORDERED: METOCLOPRAMIDE 5 MG/ML 2 ML VIAL IVP STA (07:27)
[2021-02-28] MEDS ORDERED: diphenhydrAMINE 50 MG/ML 1 ML VIAL IVP STA (07:27)
[2021-02-28 09:00] VITALS: BP 130/79; PULSE 57
== END 2021-02-28 09:00 | disposition home or self-care (01) ==
LOC: EC 05:40
DX: E86.0 Dehydration (principal); R10.816 Epigastric abdominal tenderness; R11.2 Nausea with vomiting, unspecified; K21.9 Gastro-esophageal reflux disease without esophagitis; Z79.899 Other long term (current) drug therapy; F17.200 Nicotine dependence, unspecified, uncomplicated; Z90.49 Acquired absence of other specified parts of digestive tract; Z98.51 Tubal ligation status; Z88.1 Allergy status to other antibiotic agents; Z88.2 Allergy status to sulfonamides
CPT/HCPCS: 36415; 80053; 83690; 85025; 81001; 81025; 74018; 99284; 96374; 96375 ×4; 96361 ×3; J1200; J2765; J2405; J1170; C9113

== ENCOUNTER 2021-03-18 21:45 | Emergency (ER) | payer MEDICARE ==
[2021-03-18 21:54] VITALS: TEMP 98.2
[2021-03-18 22:20] LABS: Basophils % (A) 0 %; Eosinophils # (A) 0.2 k/uL (0-0.7); Eosinophils % (A) 1 %; HCT 43.5 % (34.0-46.0); Lymphocytes # (A) 0.8 k/uL (1.0-4.8); Lymphocytes % (A) 5 %; MCH 33.5 pg (25.0-35.0); MCHC 34.5 g/dL (31.0-37.0); MCV 96.9 fL (80.0-100.0); Mean Platelet Volume 6.8; Monocytes # (A) 0.2 k/uL (0-1.0); Monocytes % (A) 2 %; Neutrophils # (A) 14.1 k/uL (1.3-7.7); Neutrophils % (A) 92 %; Platelet Count 692 k/uL (150-450); RBC 4.49 m/uL (3.80-5.40); RDW 11.8 % (11.5-15.5); WBC 15.4 k/uL (3.8-10.6)
--- NOTE | 2021-03-18 22:29 | XR ---
EXAMINATION TYPE: XR chest 2V DATE OF EXAM: 03/18/2021 COMPARISON: 06/27/2020 HISTORY: 2 views TECHNIQUE: FINDINGS: Heart and mediastinum are normal. Lungs are clear. Diaphragm is normal. Bony thorax appears normal. IMPRESSION: Normal chest. No change.
[2021-03-18 22:31] LABS: ALT 14 U/L (4-34); AST 23 U/L (14-36); African American GFR (CKD) >90 (>60 ml/min/1.73 sqM); Albumin 5.3 g/dL (3.5-5.0); Alkaline Phosphatase 105 U/L (38-126); Amylase 63 U/L (30-110); Anion Gap 16 mmol/L; Blood Urea Nitrogen 17 mg/dL (7-17); Calcium 10.9 mg/dL (8.4-10.2); Carbon Dioxide 22 mmol/L (22-30); Chloride 104 mmol/L (98-107); Glucose 165 mg/dL (74-99); Lipase 16 U/L (23-300); Non-African American GFR(CKD) >90 (>60 ml/min/1.73 sqM); Potassium 4.8 mmol/L (3.5-5.1); Sodium 142 mmol/L (137-145); Total Bilirubin 0.6 mg/dL (0.2-1.3); Total Protein 9.1 g/dL (6.3-8.2)
[2021-03-18] MEDS ORDERED: SODIUM CHLORIDE 0.9% 1,000 ML IV ONE (22:58)
[2021-03-18] MEDS ORDERED: SODIUM CHLORIDE 0.9% 1,000 ML IV STA (23:02)
[2021-03-18] MEDS ORDERED: METOCLOPRAMIDE 5 MG/ML 2 ML VIAL IVP STA (23:02)
[2021-03-18] MEDS ORDERED: HYDROmorphone 0.5 MG/0.5 ML SYRINGE IVP STA (23:03)
[2021-03-18] MEDS ORDERED: diphenhydrAMINE 50 MG/ML 1 ML VIAL IVP STA (23:03)
[2021-03-18] MEDS ORDERED: HYDROmorphone 1 MG/ML 1 ML SYRINGE IVP STA (23:07)
[2021-03-18 23:20] LABS: Amorphous Sediment,Urine Occasional /hpf; Appearance,Urine Turbid (Clear); Bacteria,Urine Rare /hpf; Bilirubin,Urine Negative (Negative); Blood,Urine Small (Negative); Color,Urine Orange; Glucose,Urine (UA) Trace (Negative); Ketones,Urine 2+ (Negative); Leukocyte Esterase,Urine Negative (Negative); Mucus,Urine Many /hpf; Nitrite,Urine Negative (Negative); PH, Urine 5.5 (5.0-8.0); Protein,Urine 2+ (Negative); Specific Gravity,Urine 1.032 (1.001-1.035); Squamous Epithelial Cell,Urine 7 /hpf (0-4)
[2021-03-18 23:34] LABS: C Reactive Protein 1.8 mg/dL (<1.0)
--- NOTE | 2021-03-18 23:42 | ED ---
General Adult HPI - General Chief complaint: Shortness of Breath Stated complaint: ABD pain,nausea,body aches Time Seen by Provider: 03/18/21 23:02 Source: patient Mode of arrival: wheelchair Limitations: no limitations - History of Present Illness Initial comments: 40-year-old female with a past medical history of gastroparesis,, gastritis, renal disease, hyperlipidemia presents to the emergency room for chief complaint of abdominal pain. Patient states she has had abdominal pain all day. She has also had nausea vomiting and diarrhea. Patient states her gastroparesis this area. Patient also feels slightly short of breath. She also has body aches and chills. She has not had fevers as far as she is aware.Patient has no other complaints at this time including chest pain, headache, or visual changes. - Related Data Home Medications Medication Instructions Recorded Confirmed Albuterol Nebulized [Ventolin 2.5 mg INHALATION RT-QID PRN 10/23/20 01/01/21 Nebulized] Ondansetron Odt [Zofran ODT] 8 mg PO BID 10/23/20 01/01/21 HYDROcodone/APAP 7.5-325MG [[place] 0.5 tab PO BID PRN 12/08/20 01/01/21 7.5-325] Previous Rx's Medication Instructions Recorded Pantoprazole Sodium [Protonix] 40 mg PO DAILY #30 tablet. 08/27/20 Allergies Allergy/AdvReac Type Severity Reaction Status Date / Time sulfamethoxazole Allergy Rash/Hives Verified 03/18/21 21:54 [From Bactrim] trimethoprim [From Bactrim] Allergy Rash/Hives Verified 03/18/21 21:54 Review of Systems ROS Statement: Those systems with pertinent positive or pertinent negative responses have been documented in the HPI. ROS Other: All systems not noted in ROS Statement are negative. Past Medical History Past Medical History: GERD/Reflux, Hyperlipidemia, Renal Disease Additional Past Medical History / Comment(s): Gastroparesis, gastritis, esophageal tears, chronic low back pain, herniated lower discs, bilateral wrist tendonitis with R side worse, R shoulder pain past couple months, numbness to bilateral hand fingers when first wakes, migraines, instructed to sleep with HOB up 6 inches d/t heart rate dropping with sleep, vertigo, pyelonephritis, History of Any Multi-Drug Resistant Organisms: None Reported Past Surgical History: Appendectomy, Tubal Ligation Additional Past Surgical History / Comment(s): Botox injection "mouth" of stomach-R/T SPASMS , EGDs, colonoscopy, vaginal cyst drained. Past Anesthesia/Blood Transfusion Reactions: No Reported Reaction Additional Past Anesthesia/Blood Transfusion Reaction / Comment(s): Never had blood transfusion. Past Psychological History: Anxiety, Bipolar, Depression Smoking Status: Current every day smoker Past Alcohol Use History: None Reported Past Drug Use History: Marijuana - Past Family History Mother Family Medical History: Cancer Additional Family Medical History / Comment(s): Mother is living. She has had breast cancer and 2 back surgeries. Father Family Medical History: No Reported History Additional Family Medical History / Comment(s): Father had ETOH abuse and was manic depressive. He after a fall where he fractured his back then "drank" himself to . Brother(s) Family Medical History: Neurologic Disorder Sister(s) Family Medical History: No Reported History Son(s) Family Medical History: No Reported History Daughter(s) Family Medical History: No Reported History General Exam Limitations: no limitations General appearance: alert, in no apparent distress Head exam: Present: atraumatic, normocephalic, normal inspection Eye exam: Present: normal appearance, PERRL, EOMI. Absent: scleral icterus, conjunctival injection, periorbital swelling ENT exam: Present: normal exam, mucous membranes moist Neck exam: Present: normal inspection. Absent: tenderness, meningismus, lymphadenopathy Respiratory exam: Present: normal lung sounds bilaterally. Absent: respiratory distress, wheezes, rales, rhonchi, stridor Cardiovascular Exam: Present: regular rate, normal rhythm, normal heart sounds. Absent: systolic murmur, diastolic murmur, rubs, gallop, clicks GI/Abdominal exam: Present: soft, tenderness (Generalized abdominal tenderness), normal bowel sounds. Absent: distended, guarding, rebound, rigid Neurological exam: Present: alert Course Vital Signs 03/18/21 21:51 Temperature 98.2 F Pulse Rate 104 H Respiratory 20 Rate Blood Pressure 136/89 O2 Sat by Pulse 97 Oximetry Medical Decision Making - Medical Decision Making Vitals are stable. CBC does show leukocytosis which is likely related to vomiting. CMP unremarkable. Left acid 2.9 likely secondary to dehydration. Urinalysis does show 2+ ketones. Patient was given 2 L of fluid. Chest x-ray shows a normal chest. No change. Patient was given nausea medicine and pain medicine. Did have improvement in symptoms. No episodes of vomiting in the emergency room. At this time patient immediately started him to follow up with primary care. She'll return here for any worsening symptoms. - Lab Data Result diagrams: 03/18/21 22:14 03/18/21 22:14 Lab Results 03/18/21 03/18/21 03/18/21 Range/Units 21:58 22:14 22:14 WBC 15.4 H (3.8-10.6) k/uL RBC 4.49 (3.80-5.40) m/uL Hgb 15.0 (11.4-16.0) gm/dL Hct 43.5 (34.0-46.0) % MCV 96.9 (80.0-100.0) fL MCH 33.5 (25.0-35.0) pg MCHC 34.5 (31.0-37.0) g/dL RDW 11.8 (11.5-15.5) % Plt Count 692 H (150-450) k/uL MPV 6.8 Neutrophils % 92 % Lymphocytes % 5 % Monocytes % 2 % Eosinophils % 1 % Basophils % 0 % Neutrophils # 14.1 H (1.3-7.7) k/uL Lymphocytes # 0.8 L (1.0-4.8) k/uL Monocytes # 0.2 (0-1.0) k/uL Eosinophils # 0.2 (0-0.7) k/uL Basophils # 0.0 (0-0.2) k/uL Sodium 142 (137-145) mmol/L Potassium 4.8 (3.5-5.1) mmol/L Chloride 104 (98-107) mmol/L Carbon Dioxide 22 (22-30) mmol/L Anion Gap 16 mmol/L BUN 17 (7-17) mg/dL Creatinine 0.76 (0.52-1.04) mg/dL Est GFR (CKD-EPI)AfAm >90 (>60 ml/min/1.73 sqM) Est GFR (CKD-EPI)NonAf >90 (>60 ml/min/1.73 sqM) Glucose 165 H (74-99) mg/dL Plasma Lactic Acid Jose (0.7-2.0) mmol/L Calcium 10.9 H (8.4-10.2) mg/dL Total Bilirubin 0.6 (0.2-1.3) mg/dL AST 23 (14-36) U/L ALT 14 (4-34) U/L Alkaline Phosphatase 105 (38-126) U/L Lactate Dehydrogenase (313-618) U/L C-Reactive Protein (<1.0) mg/dL Total Protein 9.1 H (6.3-8.2) g/dL Albumin 5.3 H (3.5-5.0) g/dL Amylase 63 (30-110) U/L Lipase 16 L (23-300) U/L Urine Color Urine Appearance (Clear) Urine pH (5.0-8.0) Ur Specific [place] (1.001-1.035) Urine Protein (Negative) Urine Glucose (UA) (Negative) Urine Ketones (Negative) Urine Blood (Negative) Urine Nitrite (Negative) Urine Bilirubin (Negative) Urine Urobilinogen (<2.0) mg/dL Ur Leukocyte Esterase (Negative) Ur Squamous Epith Cells (0-4) /hpf Amorphous Sediment (None) /hpf Urine Bacteria (None) /hpf Urine Mucus (None) /hpf Influenza Type A (PCR) Not Detected (Not Detectd) Influenza Type B (PCR) Not Detected (Not Detectd) RSV (PCR) Not Detected (Not Detectd) SARS-CoV-2 (PCR) Not Detected (Not Detectd) 03/18/21 03/18/21 03/18/21 Range/Units 22:14 22:38 23:04 WBC (3.8-10.6) k/uL RBC (3.80-5.40) m/uL Hgb (11.4-16.0) gm/dL Hct (34.0-46.0) % MCV (80.0-100.0) fL MCH (25.0-35.0) pg MCHC (31.0-37.0) g/dL RDW (11.5-15.5) % Plt Count (150-450) k/uL MPV Neutrophils % % Lymphocytes % % Monocytes % % Eosinophils % % Basophils % % Neutrophils # (1.3-7.7) k/uL Lymphocytes # (1.0-4.8) k/uL Monocytes # (0-1.0) k/uL Eosinophils # (0-0.7) k/uL Basophils # (0-0.2) k/uL Sodium (137-145) mmol/L Potassium (3.5-5.1) mmol/L Chloride (98-107) mmol/L Carbon Dioxide (22-30) mmol/L Anion Gap mmol/L BUN (7-17) mg/dL Creatinine (0.52-1.04) mg/dL Est GFR (CKD-EPI)AfAm (>60 ml/min/1.73 sqM) Est GFR (CKD-EPI)NonAf (>60 ml/min/1.73 sqM) Glucose (74-99) mg/dL Plasma Lactic Acid Jose 2.9 H* (0.7-2.0) mmol/L Calcium (8.4-10.2) mg/dL Total Bilirubin (0.2-1.3) mg/dL AST (14-36) U/L ALT (4-34) U/L Alkaline Phosphatase (38-126) U/L Lactate Dehydrogenase 479 (313-618) U/L C-Reactive Protein 1.8 H (<1.0) mg/dL Total Protein (6.3-8.2) g/dL Albumin (3.5-5.0) g/dL Amylase (30-110) U/L Lipase (23-300) U/L Urine Color [place] Urine Appearance Turbid H (Clear) Urine pH 5.5 (5.0-8.0) Ur Specific [place] 1.032 (1.001-1.035) Urine Protein 2+ H (Negative) Urine Glucose (UA) Trace H (Negative) Urine Ketones 2+ H (Negative) Urine Blood Small H (Negative) Urine Nitrite Negative (Negative) Urine Bilirubin Negative (Negative) Urine Urobilinogen 2.0 (<2.0) mg/dL Ur Leukocyte Esterase Negative (Negative) Ur Squamous Epith Cells 7 H (0-4) /hpf Amorphous Sediment Occasional H (None) /hpf Urine Bacteria Rare H (None) /hpf Urine Mucus Many H (None) /hpf Influenza Type A (PCR) (Not Detectd) Influenza Type B (PCR) (Not Detectd) RSV (PCR) (Not Detectd) SARS-CoV-2 (PCR) (Not Detectd) Disposition Clinical Impression: Gastroparesis, Abdominal pain, Nausea and vomiting Disposition: HOME SELF-CARE Condition: Good Instructions (If sedation given, give patient instructions): Abdominal Pain (ED) Additional Instructions: Follow-up with primary care. Return to the emergency room for any worsening symptoms. Is patient prescribed a controlled substance at d/c from ED?: No Referrals: Jewell Bui MD [Primary Care Provider] - 1-2 days Time of Disposition: 00:01
[2021-03-19 00:44] VITALS: BP 147/62; PULSE 75; RESP 18
== END 2021-03-19 00:44 | disposition home or self-care (01) ==
LOC: EC 21:45
DX: K31.84 Gastroparesis (principal); F17.200 Nicotine dependence, unspecified, uncomplicated; E78.5 Hyperlipidemia, unspecified; F32.9 Major depressive disorder, single episode, unspecified; F12.90 Cannabis use, unspecified, uncomplicated; Z90.49 Acquired absence of other specified parts of digestive tract; Z90.09 Acquired absence of other part of head and neck
CPT/HCPCS: 36415; 80053; 82150; 83605; 83615; 83690; 85025; 86140; 81001; 87636; 71046; 99284; 96374; 96375 ×2; 96361; J1200; J2765; J1170

== ENCOUNTER 2021-04-05 19:25 | Emergency (ER) | payer MEDICARE ==
[2021-04-05] MEDS ORDERED: SODIUM CHLORIDE 0.9% 1,000 ML IV STA ×2 (19:42)
[2021-04-05] MEDS ORDERED: METOCLOPRAMIDE 5 MG/ML 2 ML VIAL IVP STA (19:42)
[2021-04-05] MEDS ORDERED: LORazepam 2 MG/ML INJ IV STA (19:43)
[2021-04-05] MEDS ORDERED: HYDROmorphone 0.5 MG/0.5 ML SYRINGE IVP STA (19:43)
[2021-04-05] MEDS ORDERED: FAMOTIDINE 20 MG/2 ML VIAL IV STA (19:43)
[2021-04-05] MEDS ORDERED: CAPSAICIN 0.025% CREAM 60 GM TUBE TOPICAL STA (19:43)
--- NOTE | 2021-04-05 19:48 | ED ---
Nausea/Vomiting/Diarrhea HPI - General Chief complaint: Nausea/Vomiting/Diarrhea Stated complaint: Vomiting, Stomach Pain Time Seen by Provider: 04/05/21 19:30 Source: patient Mode of arrival: ambulatory Limitations: no limitations - History of Present Illness Initial comments: 41-year-old female with history of gastroparesis and chronic cyclic vomiting presents to ER today for chief complaint of nausea vomiting. Patient states that yesterday she felt icky, like she had a head cold with congestion/sinus pressure. she states around 12PM today she was vomiting uncontrollable. Pt states she has diffuse abdominal pain. Denies blood in stools/vomit. or dark stools. Pt denies pain being different than her typical episode of vomiting. Pt denies chest pain, dyspnea, leg swelling, headaches, dizziness or additional complaints. Upon arrival patient appears nontoxic in no acute distress. - Related Data Home Medications Medication Instructions Recorded Confirmed Ondansetron Odt [Zofran ODT] 8 mg PO BID 10/23/20 04/05/21 HYDROcodone/APAP 7.5-325MG [[place] 0.5 tab PO BID PRN 12/08/20 04/05/21 7.5-325] Previous Rx's Medication Instructions Recorded Pantoprazole Sodium [Protonix] 40 mg PO DAILY #30 tablet. 08/27/20 Allergies Allergy/AdvReac Type Severity Reaction Status Date / Time sulfamethoxazole Allergy Rash/Hives Verified 04/05/21 20:00 [From Bactrim] trimethoprim [From Bactrim] Allergy Rash/Hives Verified 04/05/21 20:00 Review of Systems ROS Statement: Those systems with pertinent positive or pertinent negative responses have been documented in the HPI. ROS Other: All systems not noted in ROS Statement are negative. Past Medical History Past Medical History: GERD/Reflux, Hyperlipidemia, Renal Disease Additional Past Medical History / Comment(s): Gastroparesis, gastritis, esopha geal tears, chronic low back pain, herniated lower discs, bilateral wrist tendonitis with R side worse, R shoulder pain past couple months, numbness to bilateral hand fingers when first wakes, migraines, instructed to sleep with HOB up 6 inches d/t heart rate dropping with sleep, vertigo, pyelonephritis, History of Any Multi-Drug Resistant Organisms: None Reported Past Surgical History: Appendectomy, Tubal Ligation Additional Past Surgical History / Comment(s): Botox injection "mouth" of stomach-R/T SPASMS , EGDs, colonoscopy, vaginal cyst drained. Past Anesthesia/Blood Transfusion Reactions: No Reported Reaction Additional Past Anesthesia/Blood Transfusion Reaction / Comment(s): Never had blood transfusion. Past Psychological History: Anxiety, Bipolar, Depression Smoking Status: Current every day smoker Past Alcohol Use History: None Reported Past Drug Use History: Marijuana - Past Family History Mother Family Medical History: Cancer Additional Family Medical History / Comment(s): Mother is living. She has had breast cancer and 2 back surgeries. Father Family Medical History: No Reported History Additional Family Medical History / Comment(s): Father had ETOH abuse and was manic depressive. He after a fall where he fractured his back then "drank" himself to . Brother(s) Family Medical History: Neurologic Disorder Sister(s) Family Medical History: No Reported History Son(s) Family Medical History: No Reported History Daughter(s) Family Medical History: No Reported History General Exam - General Exam Comments Initial Comments: General: The patient is awake and alert, in no distress, and does not appear acutely ill. Eye: Pupils are equal, round and reactive to light, extra-ocular movements are intact. No nystagmus. There is normal conjunctiva bilaterally. No signs of icterus. Ears, nose, mouth and throat: There are dry mucous membranes and no oral lesions. Neck: The neck is supple, there is no tenderness or JVD. Cardiovascular: There is a regular rate and rhythm. No murmur, rub or gallop is appreciated. Respiratory: Lungs are clear to auscultation, respirations are non-labored, breath sounds are equal. No wheezes, stridor, rales, or rhonchi. Gastrointestinal: Soft, non-distended, diffusely mild tenderness to palpation of the abdomen, abdomen is without masses or organomegaly noted. There is no rebound or guarding present. Musculoskeletal: Normal ROM, no tenderness. Strength 5/5. Sensation intact. Pulses equal bilaterally 2+. Neurological: A&O x 3. CN II-XII intact grossly, There are no obvious motor or sensory deficits. Coordination appears grossly intact. Speech is normal. Skin: Skin is warm and dry and no rashes or lesions are noted. Psychiatric: Cooperative, appropriate mood & affect, normal judgment. Limitations: no limitations Course Vital Signs 04/05/21 04/05/21 04/05/21 19:27 21:00 22:00 Temperature 98 F 99.0 F Pulse Rate 73 93 98 Respiratory 18 20 20 Rate Blood Pressure 146/93 133/67 123/73 O2 Sat by Pulse 94 L 99 98 Oximetry Medical Decision Making - Medical Decision Making 41-year-old with history of vomiting x 1 days. hx of rest of gastroparesis. pt appear dry. hydrated. symptoms controlled in ER, including vomiting/pain. patient is agreeable to discharge with return parameters (worsening pain, inability to eat/drink), and the importance of f/u with GI/PCP in next 1-2 days. Pt discharged appearing well. She had ride from friend at time of discharge. Dr Nickerson agreeable to care plan and discharge. - Lab Data Result diagrams: 04/05/21 20:30 04/05/21 20:30 Lab Results 04/05/21 04/05/21 04/05/21 Range/Units 20:30 20:30 20:30 WBC 14.3 H (3.8-10.6) k/uL RBC 4.42 (3.80-5.40) m/uL Hgb 14.4 (11.4-16.0) gm/dL Hct 42.8 (34.0-46.0) % MCV 97.0 (80.0-100.0) fL MCH 32.7 (25.0-35.0) pg MCHC 33.7 (31.0-37.0) g/dL RDW 12.2 (11.5-15.5) % Plt Count 517 H (150-450) k/uL MPV 7.7 Neutrophils % 89 % Lymphocytes % 8 % Monocytes % 2 % Eosinophils % 0 % Basophils % 0 % Neutrophils # 12.7 H (1.3-7.7) k/uL Lymphocytes # 1.1 (1.0-4.8) k/uL Monocytes # 0.4 (0-1.0) k/uL Eosinophils # 0.1 (0-0.7) k/uL Basophils # 0.0 (0-0.2) k/uL Sodium 144 (137-145) mmol/L Potassium 4.4 (3.5-5.1) mmol/L Chloride 110 H (98-107) mmol/L Carbon Dioxide 19 L (22-30) mmol/L Anion Gap 15 mmol/L BUN 12 (7-17) mg/dL Creatinine 0.72 (0.52-1.04) mg/dL Est GFR (CKD-EPI)AfAm >90 (>60 ml/min/1.73 sqM) Est GFR (CKD-EPI)NonAf >90 (>60 ml/min/1.73 sqM) Glucose 156 H (74-99) mg/dL Calcium 10.6 H (8.4-10.2) mg/dL Total Bilirubin 0.7 (0.2-1.3) mg/dL AST 20 (14-36) U/L ALT 12 (4-34) U/L Alkaline Phosphatase 89 (38-126) U/L Total Protein 8.8 H (6.3-8.2) g/dL Albumin 5.0 (3.5-5.0) g/dL Lipase 27 (23-300) U/L Urine Color Yellow Urine Appearance Cloudy H (Clear) Urine pH 5.5 (5.0-8.0) Ur Specific [place] 1.032 (1.001-1.035) Urine Protein 1+ H (Negative) Urine Glucose (UA) Trace H (Negative) Urine Ketones 2+ H (Negative) Urine Blood Small H (Negative) Urine Nitrite Negative (Negative) Urine Bilirubin Negative (Negative) Urine Urobilinogen 2.0 (<2.0) mg/dL Ur Leukocyte Esterase Negative (Negative) Urine RBC 11 H (0-5) /hpf Urine WBC 3 (0-5) /hpf Ur Squamous Epith Cells 10 H (0-4) /hpf Hyaline Casts 43 H (0-2) /lpf Urine Mucus Many H (None) /hpf Disposition Clinical Impression: Abdominal pain, Nausea & vomiting Disposition: HOME SELF-CARE Condition: Good Instructions (If sedation given, give patient instructions): Abdominal Pain (ED), Acute Nausea and Vomiting (ED) Additional Instructions: Please use medication as discussed. Please follow-up with family doctor in the next 2 days. Please return to emergency room if the symptoms increase or worsen or for any other concerns. Is patient prescribed a controlled substance at d/c from ED?: No Referrals: Jewell Bui MD [Primary Care Provider] - 1-2 days Time of Disposition: 23:06
[2021-04-05 21:06] LABS: Basophils % (A) 0 %; Eosinophils # (A) 0.1 k/uL (0-0.7); Eosinophils % (A) 0 %; HCT 42.8 % (34.0-46.0); HGB 14.4 gm/dL (11.4-16.0); Lymphocytes # (A) 1.1 k/uL (1.0-4.8); Lymphocytes % (A) 8 %; MCH 32.7 pg (25.0-35.0); MCHC 33.7 g/dL (31.0-37.0); Mean Platelet Volume 7.7; Monocytes # (A) 0.4 k/uL (0-1.0); Monocytes % (A) 2 %; Neutrophils # (A) 12.7 k/uL (1.3-7.7); Neutrophils % (A) 89 %; Platelet Count 517 k/uL (150-450); RBC 4.42 m/uL (3.80-5.40); RDW 12.2 % (11.5-15.5); WBC 14.3 k/uL (3.8-10.6)
[2021-04-05 21:09] LABS: ALT 12 U/L (4-34); AST 20 U/L (14-36); African American GFR (CKD) >90 (>60 ml/min/1.73 sqM); Alkaline Phosphatase 89 U/L (38-126); Anion Gap 15 mmol/L; Blood Urea Nitrogen 12 mg/dL (7-17); Calcium 10.6 mg/dL (8.4-10.2); Carbon Dioxide 19 mmol/L (22-30); Chloride 110 mmol/L (98-107); Glucose 156 mg/dL (74-99); Lipase 27 U/L (23-300); Non-African American GFR(CKD) >90 (>60 ml/min/1.73 sqM); Potassium 4.4 mmol/L (3.5-5.1); Sodium 144 mmol/L (137-145); Total Bilirubin 0.7 mg/dL (0.2-1.3); Total Protein 8.8 g/dL (6.3-8.2)
--- NOTE | 2021-04-05 21:21 | XR ---
EXAMINATION TYPE: XR KUB DATE OF EXAM: 04/05/2021 COMPARISON: 02/28/2021 HISTORY: Pain TECHNIQUE: 2 views upright FINDINGS: There is no sign of intestinal obstruction or pneumoperitoneum. Fecal pattern is normal. Th ere is no evidence of a mass. Lung bases are clear. There are no pathologic calcifications. IMPRESSION: Nonacute abdomen. No change.
[2021-04-05] MEDS ORDERED: SODIUM CHLORIDE 0.9% 500 ML 500 ML IV ONE (21:54)
[2021-04-05] MEDS ORDERED: ONDANSETRON 4 MG/2 ML VIAL IVP STA (21:54)
[2021-04-05] MEDS ORDERED: MORPHINE SULFATE 2 MG/ML SYRINGE IVP STA (21:54)
[2021-04-05 22:36] LABS: Appearance,Urine Cloudy (Clear); Bilirubin,Urine Negative (Negative); Blood,Urine Small (Negative); Color,Urine Yellow; Glucose,Urine (UA) Trace (Negative); Hyaline Casts,Urine 43 /lpf (0-2); Ketones,Urine 2+ (Negative); Leukocyte Esterase,Urine Negative (Negative); Mucus,Urine Many /hpf; Nitrite,Urine Negative (Negative); PH, Urine 5.5 (5.0-8.0); Protein,Urine 1+ (Negative); RBC,Urine 11 /hpf (0-5); Specific Gravity,Urine 1.032 (1.001-1.035); Squamous Epithelial Cell,Urine 10 /hpf (0-4); WBC,Urine 3 /hpf (0-5)
[2021-04-05 23:21] VITALS: BP 123/72; PULSE 88; RESP 16; TEMP 98.5
== END 2021-04-06 00:10 | disposition home or self-care (01) ==
LOC: EC 19:25
DX: R11.2 Nausea with vomiting, unspecified (principal); R10.9 Unspecified abdominal pain; K21.9 Gastro-esophageal reflux disease without esophagitis; E78.5 Hyperlipidemia, unspecified; F32.9 Major depressive disorder, single episode, unspecified; F41.9 Anxiety disorder, unspecified; F17.200 Nicotine dependence, unspecified, uncomplicated; F12.90 Cannabis use, unspecified, uncomplicated; Z90.49 Acquired absence of other specified parts of digestive tract; Z98.51 Tubal ligation status; Z80.3 Family history of malignant neoplasm of breast
CPT/HCPCS: 36415; 80053; 83690; 85025; 81001; 74018; 99284; 96374; 96375 ×5; 96361 ×3; J2060; J2765; J2405; J2270; J1170

== ENCOUNTER 2021-04-06 05:13 | Emergency (ER) | payer MEDICARE ==
[2021-04-06 05:22] VITALS: TEMP 98.6
[2021-04-06] MEDS ORDERED: ONDANSETRON 4 MG/2 ML VIAL IVP STA (05:32)
[2021-04-06] MEDS ORDERED: SODIUM CHLORIDE 0.9% 1,000 ML IV ONE ×2 (05:32→06:59)
[2021-04-06] MEDS ORDERED: DEXTROSE 5%-0.45% NACL 1,000 ML IV ONE (05:32)
[2021-04-06] MEDS ORDERED: MORPHINE SULFATE 4 MG/ML SYRINGE IV STA (05:32)
[2021-04-06] MEDS ORDERED: HYDROmorphone 0.5 MG/0.5 ML SYRINGE IVP STA (06:59)
[2021-04-06 07:13] VITALS: BP 99/61; PULSE 60; RESP 18
--- NOTE | 2021-04-06 07:51 | ED ---
General Adult HPI - General Chief complaint: Abdominal Pain Stated complaint: ABD pain Time Seen by Provider: 04/06/21 05:31 Source: patient, RN notes reviewed, old records reviewed Mode of arrival: ambulatory Limitations: no limitations - History of Present Illness Initial comments: 41-year-old female history of recurrent episodes of nausea and vomiting resents for second ER visit. She had been seen around midnight, she was given IV fluids and antiemetics as well as pain control and was ultimately feeling better she was discharged. She states that when she went home she had recurrent episodes of vomiting and required repeat evaluation. She states that this episode is exactly similar to her monthly episodes which she states are related to her menstrual cycle. She is following both with GI and [facility]. She has an appointment in less than 2 weeks as well as some interval testing as an outpatient. She denies fever. Denies vaginal bleeding. Denies vaginal discharge. - Related Data Home Medications Medication Instructions Recorded Confirmed Ondansetron Odt [Zofran ODT] 8 mg PO BID 10/23/20 04/05/21 HYDROcodone/APAP 7.5-325MG [[place] 0.5 tab PO BID PRN 12/08/20 04/05/21 7.5-325] Previous Rx's Medication Instructions Recorded Pantoprazole Sodium [Protonix] 40 mg PO DAILY #30 tablet. 08/27/20 Allergies Allergy/AdvReac Type Severity Reaction Status Date / Time sulfamethoxazole Allergy Rash/Hives Verified 04/06/21 05:20 [From Bactrim] trimethoprim [From Bactrim] Allergy Rash/Hives Verified 04/06/21 05:20 Review of Systems ROS Statement: Those systems with pertinent positive or pertinent negative responses have been documented in the HPI. ROS Other: All systems not noted in ROS Statement are negative. Past Medical History Past Medical History: GERD/Reflux, Hyperlipidemia, Renal Disease Additional Past Medical History / Comment(s): Gastroparesis, gastritis, esophageal tears, chronic low back pain, herniated lower discs, bilateral wrist tendonitis with R side worse, R shoulder pain past couple months, numbness to bilateral hand fingers when first wakes, migraines, instructed to sleep with HOB up 6 inches d/t heart rate dropping with sleep, vertigo, pyelonephritis, History of Any Multi-Drug Resistant Organisms: None Reported Past Surgical History: Appendectomy, Tubal Ligation Additional Past Surgical History / Comment(s): Botox injection "mouth" of stomach-R/T SPASMS , EGDs, colonoscopy, vaginal cyst drained. Past Anesthesia/Blood Transfusion Reactions: No Reported Reaction Additional Past Anesthesia/Blood Transfusion Reaction / Comment(s): Never had blood transfusion. Past Psychological History: Anxiety, Bipolar, Depression Smoking Status: Current every day smoker Past Alcohol Use History: None Reported Past Drug Use History: Marijuana - Past Family History Mother Family Medical History: Cancer Additional Family Medical History / Comment(s): Mother is living. She has had breast cancer and 2 back surgeries. Father Family Medical History: No Reported History Additional Family Medical History / Comment(s): Father had ETOH abuse and was manic depressive. He after a fall where he fractured his back then "drank" himself to . Brother(s) Family Medical History: Neurologic Disorder Sister(s) Family Medical History: No Reported History Son(s) Family Medical History: No Reported History Daughter(s) Family Medical History: No Reported History General Exam Limitations: no limitations Course Vital Signs 04/06/21 04/06/21 05:20 07:10 Temperature 98.6 F Pulse Rate 93 60 Respiratory 26 H 18 Rate Blood Pressure 135/71 99/61 O2 Sat by Pulse 96 95 Oximetry Medical Decision Making - Medical Decision Making 41-year-old female with recurrent nausea vomiting and acute on chronic abdominal pain. Patient had been seen by previous physician, symptomatic treatment have been ordered. The labs were reviewed from the admission just hours before this one. She has mild leukocytosis, likely reactive. CO2 of 19, ketones in the urine consistent with dehydration from vomiting. She was given IV fluids and symptomatic medications including antiemetics and pain control. I did reevaluate this patient after initial treatment and she is feeling much better. I did offer observation for continued treatment and the patient declined. She wishes to be discharged. She states she has good follow-up as an outpatient and will return as needed. Disposition Clinical Impression: Abdominal pain, Dehydration, Gastroparesis, Nausea and vomiting Disposition: HOME SELF-CARE Condition: Fair Instructions (If sedation given, give patient instructions): Abdominal Pain (ED), Acute Nausea and Vomiting (ED) Is patient prescribed a controlled substance at d/c from ED?: No Referrals: Jewell Bui MD [Primary Care Provider] - 1-2 days Time of Disposition: 07:54
== END 2021-04-06 08:03 | disposition home or self-care (01) ==
LOC: EC 05:13
DX: E86.0 Dehydration (principal); K31.84 Gastroparesis; E78.5 Hyperlipidemia, unspecified; G43.909 Migraine, unspecified, not intractable, without status migrainosus; K21.9 Gastro-esophageal reflux disease without esophagitis; F41.9 Anxiety disorder, unspecified; F32.9 Major depressive disorder, single episode, unspecified; F17.200 Nicotine dependence, unspecified, uncomplicated; F12.90 Cannabis use, unspecified, uncomplicated
CPT/HCPCS: 99283; 96374; 96375 ×2; 96361; J2270; J2405; J1170

== ENCOUNTER 2021-07-05 18:41 | Emergency (ER) | payer MEDICARE ==
[2021-07-05] MEDS ORDERED: ONDANSETRON 4 MG/2 ML VIAL IVP STA (19:20)
[2021-07-05] MEDS ORDERED: MORPHINE SULFATE 4 MG/ML SYRINGE IV STA (19:20)
[2021-07-05] MEDS ORDERED: PANTOPRAZOLE 40 MG/10 ML VIAL IVP STA (19:20)
[2021-07-05] MEDS ORDERED: SODIUM CHLORIDE 0.9% 1,000 ML IV STA (19:20)
[2021-07-05] MEDS ORDERED: LORazepam 2 MG/ML INJ IV STA (19:20)
--- NOTE | 2021-07-05 19:40 | ED ---
Abdominal Pain HPI - General Chief Complaint: Abdominal Pain Stated Complaint: Vomiting, Stomach Pain Time Seen by Provider: 07/05/21 19:12 Source: patient Mode of arrival: wheelchair Limitations: no limitations - History of Present Illness Initial Comments: Patient is a 41-year-old female, with history of gastroparesis, gastritis, presenting to the emergency Department with complaints of abdominal pain, nausea and vomiting started about 9 AM this morning. Patient is well-known to this ER, she's had multiple visits for same complaints. She denies any chest pain or shortness of breath, no recent fevers or chills. She follows with Dr. Flores. She describes as "pain all over", she denies any specific area pain. She states this is how she normally feels with her gastritis flareups. She denies any dysuria or hematuria she denies any hematemesis. She has no further complaints. - Related Data Home Medications Medication Instructions Recorded Confirmed Ondansetron Odt [Zofran ODT] 8 mg PO BID 10/23/20 07/05/21 HYDROcodone/APAP 10-325MG [[place] 0.5 - 1 tab PO DAILY PRN 07/05/21 07/05/21 10-325] Previous Rx's Medication Instructions Recorded Pantoprazole Sodium [Protonix] 40 mg PO DAILY #30 tablet. 08/27/20 Allergies Allergy/AdvReac Type Severity Reaction Status Date / Time sulfamethoxazole Allergy Rash/Hives Verified 07/05/21 19:59 [From Bactrim] trimethoprim [From Bactrim] Allergy Rash/Hives Verified 07/05/21 19:59 Review of Systems ROS Statement: Those systems with pertinent positive or pertinent negative responses have been documented in the HPI. ROS Other: All systems not noted in ROS Statement are negative. Past Medical History Past Medical History: GERD/Reflux, Hyperlipidemia, Renal Disease Additional Past Medical History / Comment(s): Gastroparesis, gastritis, es ophageal tears, chronic low back pain, herniated lower discs, bilateral wrist tendonitis with R side worse, R shoulder pain past couple months, numbness to bilateral hand fingers when first wakes, migraines, instructed to sleep with HOB up 6 inches d/t heart rate dropping with sleep, vertigo, pyelonephritis, History of Any Multi-Drug Resistant Organisms: None Reported Past Surgical History: Appendectomy, Tubal Ligation Additional Past Surgical History / Comment(s): Botox injection "mouth" of stomach-R/T SPASMS , EGDs, colonoscopy, vaginal cyst drained. Past Anesthesia/Blood Transfusion Reactions: No Reported Reaction Additional Past Anesthesia/Blood Transfusion Reaction / Comment(s): Never had blood transfusion. Past Psychological History: Anxiety, Bipolar, Depression Smoking Status: Current every day smoker Past Alcohol Use History: None Reported Past Drug Use History: Marijuana - Past Family History Mother Family Medical History: Cancer Additional Family Medical History / Comment(s): Mother is living. She has had breast cancer and 2 back surgeries. Father Family Medical History: No Reported History Additional Family Medical History / Comment(s): Father had ETOH abuse and was manic depressive. He after a fall where he fractured his back then "drank" himself to . Brother(s) Family Medical History: Neurologic Disorder Sister(s) Family Medical History: No Reported History Son(s) Family Medical History: No Reported History Daughter(s) Family Medical History: No Reported History General Exam - General Exam Comments Initial Comments: GENERAL: Patient is well-developed and well-nourished. Patient is nontoxic and in mild distress. HEAD: Atraumatic, normocephalic. EYES: Pupils equal round and reactive to light, extraocular movements intact, sclera anicteric, conjunctiva are normal. Eyelids were unremarkable. ENT: TMs normal, nares patent, oropharynx clear without exudates. Moist mucous membranes. NECK: Normal range of motion, supple without lymphadenopathy or JVD. LUNGS: Unlabored respirations. Breath sounds clear to auscultation bilaterally and equal. No wheezes rales or rhonchi. HEART: Regular rate and rhythm without murmurs, rubs or gallops. ABDOMEN: Soft, tender to palpation in the entire abdomen, no specific area, normoactive bowel sounds. No guarding, no rebound. No masses appreciated. : Deferred MUSCULOSKELETAL: Normal extremities with adequate strength and normal range of motion, no pitting or edema. No clubbing or cyanosis. NEUROLOGICAL: Patient is alert and oriented x 3. Motor and sensory are also intact. Cranial nerves II through XII grossly intact. Symmetrical smile. Normal speech, normal gait. PSYCH: Normal mood, normal affect. SKIN: Warm, Dry, normal turgor, no rashes or lesions noted. Limitations: no limitations Course Vital Signs 07/05/21 07/05/21 07/05/21 18:50 20:50 22:00 Temperature 97.5 F L 98.9 F 97.7 F Pulse Rate 120 H 73 77 Respiratory 22 16 16 Rate Blood Pressure 132/83 136/89 127/59 O2 Sat by Pulse 99 96 97 Oximetry 07/05/21 23:07 Temperature 97.7 F Pulse Rate 76 Respiratory 20 Rate Blood Pressure 113/66 O2 Sat by Pulse 97 Oximetry Medical Decision Making - Medical Decision Making Patient is a 41-year-old female with history gastroparesis, presenting with ab dominal pain, nausea and vomiting started 9am this morning. She is well-known to our facility, been here multiple times for same complaint. She follows with Dr. Flores. No fevers. No specific area of abdominal pain, pain generalized. Labs show a white count of 18.5, a feeling this is most likely reactive since she has been actively vomiting, no fevers, rest of labs are within appropriate limits, hCG is not detected. Patient was given fluids, Zofran and pain control. She does report improvement in her symptoms and is stable to go home. I recommended following up with her family doctor as well as her GI specialist is. She is agreeable to this plan of care. Case discussed with Dr. Pulido. - Lab Data Result diagrams: 07/05/21 19:34 07/05/21 19:34 Lab Results 07/05/21 07/05/21 07/05/21 Range/Units 19:34 19:34 19:34 WBC 18.5 H (3.8-10.6) k/uL RBC 4.49 (3.80-5.40) m/uL Hgb 15.0 (11.4-16.0) gm/dL Hct 44.8 (34.0-46.0) % MCV 99.6 (80.0-100.0) fL MCH 33.4 (25.0-35.0) pg MCHC 33.5 (31.0-37.0) g/dL RDW 12.9 (11.5-15.5) % Plt Count 532 H (150-450) k/uL MPV 7.5 Neutrophils % 92 % Lymphocytes % 4 % Monocytes % 2 % Eosinophils % 1 % Basophils % 0 % Neutrophils # 17.0 H (1.3-7.7) k/uL Lymphocytes # 0.8 L (1.0-4.8) k/uL Monocytes # 0.4 (0-1.0) k/uL Eosinophils # 0.2 (0-0.7) k/uL Basophils # 0.0 (0-0.2) k/uL Sodium 143 (137-145) mmol/L Potassium 4.3 (3.5-5.1) mmol/L Chloride 106 (98-107) mmol/L Carbon Dioxide 16 L (22-30) mmol/L Anion Gap 21 mmol/L BUN 16 (7-17) mg/dL Creatinine 1.18 H (0.52-1.04) mg/dL Est GFR (CKD-EPI)AfAm 66 (>60 ml/min/1.73 sqM) Est GFR (CKD-EPI)NonAf 57 (>60 ml/min/1.73 sqM) Glucose 195 H (74-99) mg/dL Calcium 11.2 H (8.4-10.2) mg/dL Total Bilirubin 0.8 (0.2-1.3) mg/dL AST 30 (14-36) U/L ALT 27 (4-34) U/L Alkaline Phosphatase 84 (38-126) U/L Total Protein 9.1 H (6.3-8.2) g/dL Albumin 5.6 H (3.5-5.0) g/dL Amylase 67 (30-110) U/L Lipase 29 (23-300) U/L Urine HCG, Qual Not Detected (Not Detectd) Disposition Clinical Impression: Dehydration, Nausea and vomiting, Abdominal pain Disposition: HOME SELF-CARE Condition: Stable Instructions (If sedation given, give patient instructions): Abdominal Pain (ED) Additional Instructions: Please return to the Emergency Department if symptoms worsen or any other concerns. Please follow-up with your primary care doctor and GI. Is patient prescribed a controlled substance at d/c from ED?: No Referrals: Jewell Bui MD [Primary Care Provider] - 1-2 days Time of Disposition: 22:42
[2021-07-05 20:02] LABS: Basophils % (A) 0 %; Eosinophils # (A) 0.2 k/uL (0-0.7); Eosinophils % (A) 1 %; HCT 44.8 % (34.0-46.0); Lymphocytes # (A) 0.8 k/uL (1.0-4.8); Lymphocytes % (A) 4 %; MCH 33.4 pg (25.0-35.0); MCHC 33.5 g/dL (31.0-37.0); MCV 99.6 fL (80.0-100.0); Mean Platelet Volume 7.5; Monocytes # (A) 0.4 k/uL (0-1.0); Monocytes % (A) 2 %; Neutrophils % (A) 92 %; Platelet Count 532 k/uL (150-450); RBC 4.49 m/uL (3.80-5.40); RDW 12.9 % (11.5-15.5); WBC 18.5 k/uL (3.8-10.6)
[2021-07-05 20:12] LABS: Albumin 5.6 g/dL (3.5-5.0); Calcium 11.2 mg/dL (8.4-10.2); Potassium 4.3 mmol/L (3.5-5.1); Total Bilirubin 0.8 mg/dL (0.2-1.3); Total Protein 9.1 g/dL (6.3-8.2)
[2021-07-05] MEDS ORDERED: HYDROmorphone 0.5 MG/0.5 ML SYRINGE IVP STA (21:14)
--- NOTE | 2021-07-05 21:15 | XR ---
EXAM: Abdomen radiograph. HISTORY: Pain. TECHNIQUE: Supine AP view. COMPARISON: 04/05/2021. FINDINGS: There are nondilated bowel loops with a nonobstructive pattern. There are no pathologic calcification s. No acute osseous abnormality seen. IMPRESSION: No acute process.
[2021-07-05 22:13] VITALS: TEMP 97.7
[2021-07-05 23:08] VITALS: BP 113/66; PULSE 76; RESP 20
== END 2021-07-05 23:07 | disposition home or self-care (01) ==
LOC: EC 18:41
DX: E86.0 Dehydration (principal); R11.2 Nausea with vomiting, unspecified; R10.9 Unspecified abdominal pain; E78.5 Hyperlipidemia, unspecified; K21.9 Gastro-esophageal reflux disease without esophagitis; F17.200 Nicotine dependence, unspecified, uncomplicated; F12.90 Cannabis use, unspecified, uncomplicated; Z79.899 Other long term (current) drug therapy
CPT/HCPCS: 36415; 80053; 82150; 83690; 85025; 81025; 74018; 96374; 96375 ×4; 96361 ×4; 99284; J2060; J2270; J2405; C9113; J1170

== ENCOUNTER 2021-07-06 06:40 | Emergency (ER) | payer MEDICARE ==
[2021-07-06 06:47] VITALS: TEMP 98.5
[2021-07-06] MEDS ORDERED: diphenhydrAMINE 50 MG/ML 1 ML VIAL IVP STA (06:54)
[2021-07-06] MEDS ORDERED: SODIUM CHLORIDE 0.9% 2,000 ML IV STA (06:54)
[2021-07-06] MEDS ORDERED: FAMOTIDINE 20 MG/2 ML VIAL IV STA (06:54)
--- NOTE | 2021-07-06 06:59 | ED ---
Abdominal Pain HPI - General Chief Complaint: Abdominal Pain Stated Complaint: vomiting,abd pain Time Seen by Provider: 07/06/21 06:48 Source: patient, family, RN notes reviewed Mode of arrival: ambulatory Limitations: no limitations - History of Present Illness Initial Comments: This is a 41-year-old female presents emergency Department with chief complaint abdominal pain, nausea vomiting. Patient states that she has an ongoing issue and which she has seen multiple providers including GI states that she does not go back to GI frequently. She has been told they cannot find anything wrong. Patient states she is on Zofran, Protonix and [place]. Patient states she was seen here yesterday and was given fluids and nausea meds. He states that she we nt home started vomiting again. Patient is demanding narcotic pain medications. She states that narcotic pain meds are going to help a. Patient denies any known fevers or chills she cannot localize abdominal pain states is diffuse. Denies any diarrhea constipation offers no complaints. - Related Data Home Medications Medication Instructions Recorded Confirmed Ondansetron Odt [Zofran ODT] 8 mg PO BID 10/23/20 07/05/21 HYDROcodone/APAP 10-325MG [[place] 0.5 - 1 tab PO DAILY PRN 07/05/21 07/05/21 10-325] Previous Rx's Medication Instructions Recorded Pantoprazole Sodium [Protonix] 40 mg PO DAILY #30 tablet. 08/27/20 Promethazine Suppository 25 mg RECTAL QID PRN #10 supp 07/06/21 [Phenergan] Allergies Allergy/AdvReac Type Severity Reaction Status Date / Time sulfamethoxazole Allergy Rash/Hives Verified 07/06/21 06:47 [From Bactrim] trimethoprim [From Bactrim] Allergy Rash/Hives Verified 07/06/21 06:47 Review of Systems ROS Statement: Those systems with pertinent positive or pertinent negative responses have been documented in the HPI. ROS Other: All systems not noted in ROS Statement are negative. Past Medical History Past Medical History: GERD/Reflux, Hyperlipidemia, Renal Disease Additional Past Medical History / Comment(s): Gastroparesis, gastritis, esophageal tears, chronic low back pain, herniated lower discs, bilateral wrist tendonitis with R side worse, R shoulder pain past couple months, numbness to bilateral hand fingers when first wakes, migraines, instructed to sleep with HOB up 6 inches d/t heart rate dropping with sleep, vertigo, pyelonephritis, History of Any Multi-Drug Resistant Organisms: None Reported Past Surgical History: Appendectomy, Tubal Ligation Additional Past Surgical History / Comment(s): Botox injection "mouth" of stomach-R/T SPASMS , EGDs, colonoscopy, vaginal cyst drained. Past Anesthesia/Blood Transfusion Reactions: No Reported Reaction Additional Past Anesthesia/Blood Transfusion Reaction / Comment(s): Never had blood transfusion. Past Psychological History: Anxiety, Bipolar, Depression Smoking Status: Current every day smoker Past Alcohol Use History: None Reported Past Drug Use History: Marijuana - Past Family History Mother Family Medical History: Cancer Additional Family Medical History / Comment(s): Mother is living. She has had breast cancer and 2 back surgeries. Father Family Medical History: No Reported History Additional Family Medical History / Comment(s): Father had ETOH abuse and was manic depressive. He after a fall where he fractured his back then "drank" himself to . Brother(s) Family Medical History: Neurologic Disorder Sister(s) Family Medical History: No Reported History Son(s) Family Medical History: No Reported History Daughter(s) Family Medical History: No Reported History General Exam Limitations: no limitations General appearance: alert, in no apparent distress, anxious Head exam: Present: atraumatic, normocephalic, normal inspection Neck exam: Present: normal inspection. Absent: tenderness, meningismus, lymphadenopathy Respiratory exam: Present: normal lung sounds bilaterally. Absent: respiratory distress, wheezes, rales, rhonchi, stridor Cardiovascular Exam: Present: regular rate, normal rhythm, normal heart sounds. Absent: systolic murmur, diastolic murmur, rubs, gallop, clicks GI/Abdominal exam: Present: soft, tenderness (Diffuse nonlocalized), normal bowel sounds. Absent: distended, guarding, rebound, rigid Back exam: Absent: CVA tenderness (R), CVA tenderness (L) Course Vital Signs 07/06/21 07/06/21 06:43 07:43 Temperature 98.5 F Pulse Rate 78 95 Respiratory 20 20 Rate Blood Pressure 152/83 126/88 O2 Sat by Pulse 97 94 L Oximetry Medical Decision Making - Medical Decision Making Labs are improved from prior labs. Patient is well-hydrated, has had no recurrent emesis and multiple hours. Patient we discharged in stable condition return parameters were discussed. - Lab Data Result diagrams: 07/06/21 06:57 07/06/21 07:54 Lab Results 07/06/21 07/06/21 Range/Units 06:57 07:54 WBC 13.5 H (3.8-10.6) k/uL RBC 4.09 (3.80-5.40) m/uL Hgb 13.8 (11.4-16.0) gm/dL Hct 40.5 (34.0-46.0) % MCV 99.0 (80.0-100.0) fL MCH 33.7 (25.0-35.0) pg MCHC 34.1 (31.0-37.0) g/dL RDW 12.2 (11.5-15.5) % Plt Count 491 H (150-450) k/uL MPV 8.2 Neutrophils % 82 % Lymphocytes % 10 % Monocytes % 5 % Eosinophils % 1 % Basophils % 0 % Neutrophils # 11.1 H (1.3-7.7) k/uL Lymphocytes # 1.4 (1.0-4.8) k/uL Monocytes # 0.7 (0-1.0) k/uL Eosinophils # 0.2 (0-0.7) k/uL Basophils # 0.0 (0-0.2) k/uL Sodium 144 (137-145) mmol/L Potassium 3.9 (3.5-5.1) mmol/L Chloride 112 H (98-107) mmol/L Carbon Dioxide 19 L (22-30) mmol/L Anion Gap 13 mmol/L BUN 22 H (7-17) mg/dL Creatinine 0.65 (0.52-1.04) mg/dL Est GFR (CKD-EPI)AfAm >90 (>60 ml/min/1.73 sqM) Est GFR (CKD-EPI)NonAf >90 (>60 ml/min/1.73 sqM) Glucose 122 H (74-99) mg/dL Calcium 9.2 (8.4-10.2) mg/dL Total Bilirubin 0.4 (0.2-1.3) mg/dL AST 22 (14-36) U/L ALT 21 (4-34) U/L Alkaline Phosphatase 54 (38-126) U/L Total Protein 6.7 (6.3-8.2) g/dL Albumin 4.1 (3.5-5.0) g/dL Lipase 114 (23-300) U/L Disposition Clinical Impression: Chronic generalized abdominal pain Disposition: HOME SELF-CARE Condition: Stable Instructions (If sedation given, give patient instructions): Abdominal Pain (ED) Additional Instructions: Please return to the Emergency Department if symptoms worsen or any other concerns. Prescriptions: Promethazine Suppository [Phenergan] 25 mg RECTAL QID PRN #10 supp PRN Reason: Nausea Is patient prescribed a controlled substance at d/c from ED?: No Referrals: Jewell Bui MD [Primary Care Provider] - 1-2 days Time of Disposition: 09:01
[2021-07-06 07:18] LABS: Basophils % (A) 0 %; Eosinophils # (A) 0.2 k/uL (0-0.7); Eosinophils % (A) 1 %; HCT 40.5 % (34.0-46.0); HGB 13.8 gm/dL (11.4-16.0); Lymphocytes # (A) 1.4 k/uL (1.0-4.8); Lymphocytes % (A) 10 %; MCH 33.7 pg (25.0-35.0); MCHC 34.1 g/dL (31.0-37.0); Mean Platelet Volume 8.2; Monocytes # (A) 0.7 k/uL (0-1.0); Monocytes % (A) 5 %; Neutrophils # (A) 11.1 k/uL (1.3-7.7); Neutrophils % (A) 82 %; Platelet Count 491 k/uL (150-450); RBC 4.09 m/uL (3.80-5.40); RDW 12.2 % (11.5-15.5); WBC 13.5 k/uL (3.8-10.6)
[2021-07-06 08:33] LABS: AST 22 U/L (14-36); African American GFR (CKD) >90 (>60 ml/min/1.73 sqM); Albumin 4.1 g/dL (3.5-5.0); Alkaline Phosphatase 54 U/L (38-126); Anion Gap 13 mmol/L; Blood Urea Nitrogen 22 mg/dL (7-17); Calcium 9.2 mg/dL (8.4-10.2); Carbon Dioxide 19 mmol/L (22-30); Chloride 112 mmol/L (98-107); Glucose 122 mg/dL (74-99); Lipase 114 U/L (23-300); Non-African American GFR(CKD) >90 (>60 ml/min/1.73 sqM); Potassium 3.9 mmol/L (3.5-5.1); Sodium 144 mmol/L (137-145); Total Bilirubin 0.4 mg/dL (0.2-1.3); Total Protein 6.7 g/dL (6.3-8.2)
[2021-07-06 08:40] LABS: ALT 21 U/L (4-34)
[2021-07-06 09:15] VITALS: BP 101/67; PULSE 87; RESP 18
== END 2021-07-06 09:11 | disposition home or self-care (01) ==
LOC: EC 06:40
DX: G89.29 Other chronic pain (principal); R10.84 Generalized abdominal pain; E78.5 Hyperlipidemia, unspecified; K21.9 Gastro-esophageal reflux disease without esophagitis; F17.200 Nicotine dependence, unspecified, uncomplicated; F12.90 Cannabis use, unspecified, uncomplicated; Z79.899 Other long term (current) drug therapy; Z88.1 Allergy status to other antibiotic agents; Z88.2 Allergy status to sulfonamides; Z90.49 Acquired absence of other specified parts of digestive tract; Z80.3 Family history of malignant neoplasm of breast
CPT/HCPCS: 80053; 83690; 85025; 96374; 96375 ×2; 96361 ×2; 99284; J1200; J1790

== ENCOUNTER 2021-08-09 20:07 | Observation (INO) | payer MEDICARE ==
[2021-08-09] MEDS ORDERED: ONDANSETRON 4 MG/2 ML VIAL IVP STA (21:37)
[2021-08-09] MEDS ORDERED: SODIUM CHLORIDE 0.9% 1,000 ML IV STA (21:37)
[2021-08-09] MEDS ORDERED: MORPHINE SULFATE 4 MG/ML SYRINGE IV STA (21:37)
[2021-08-09 22:20] LABS: Basophils % (A) 0 %; Eosinophils # (A) 0.2 k/uL (0-0.7); Eosinophils % (A) 1 %; HCT 42.7 % (34.0-46.0); HGB 14.9 gm/dL (11.4-16.0); Lymphocytes # (A) 0.7 k/uL (1.0-4.8); Lymphocytes % (A) 4 %; MCHC 34.9 g/dL (31.0-37.0); MCV 97.3 fL (80.0-100.0); Mean Platelet Volume 7.6; Monocytes # (A) 0.3 k/uL (0-1.0); Monocytes % (A) 2 %; Neutrophils # (A) 14.1 k/uL (1.3-7.7); Neutrophils % (A) 92 %; Platelet Count 518 k/uL (150-450); RBC 4.39 m/uL (3.80-5.40); RDW 12.4 % (11.5-15.5); WBC 15.3 k/uL (3.8-10.6)
[2021-08-09 22:28] LABS: Albumin 5.3 g/dL (3.5-5.0); Calcium 10.7 mg/dL (8.4-10.2); Total Bilirubin 0.8 mg/dL (0.2-1.3); Total Protein 9.1 g/dL (6.3-8.2)
--- NOTE | 2021-08-09 22:57 | XR ---
EXAMINATION TYPE: XR KUB DATE OF EXAM: 08/09/2021 COMPARISON: 07/05/2021 HISTORY: Abdominal pain TECHNIQUE: 2 views Upright FINDINGS: There is no sign of intestinal obstruction or pneumoperitoneum. Fecal pattern is normal. Nery ng bases are clear. There are no pathologic calcifications over the kidneys. Bony structures are intact IMPRESSION: Nonacute abdomen. No adverse change.
[2021-08-09] MEDS ORDERED: DICYCLOMINE 10 MG/ML 2 ML AMP IM STA (23:17)
[2021-08-09] MEDS ORDERED: HYDROmorphone 1 MG/ML 1 ML SYRINGE IVP STA (23:17)
--- NOTE | 2021-08-09 23:18 | ED ---
Abdominal Pain HPI - General Chief Complaint: Abdominal Pain Stated Complaint: Vomiting Time Seen by Provider: 08/09/21 21:20 Source: patient, RN notes reviewed, old records reviewed Mode of arrival: EMS Limitations: no limitations - History of Present Illness Initial Comments: This is a 41-year-old female to the emergency department today. Patient pre sents today for evaluation of intractable nausea vomiting. Patient is vomiting upon arrival in the emergency department patient presents today for Severe abdominal pain unable to lay still unable to obtain any liquids or fluids down at home. She has any fevers, no diarrhea. No travel history or sick contacts MD Complaint: abdominal pain, other (Significant nausea vomiting) -: hour(s) Location: diffuse, periumbilical, epigastric, suprapubic Radiation: epigastric, suprapubic Migration to: no migration Severity: moderate Severity scale (1-10): 4 Quality: cramping, aching Consistency: intermittent Improves With: nothing Worsens With: nothing Context: possible food poisoning, other (Multiple episodes of similar presentation) Associated Symptoms: nausea, vomiting Treatments Prior to Arrival: other (none) - Related Data Home Medications Medication Instructions Recorded Confirmed Ondansetron Odt [Zofran ODT] 8 mg PO BID 10/23/20 08/09/21 HYDROcodone/APAP 10-325MG [[place] 0.5 - 1 tab PO DAILY PRN 07/05/21 08/09/21 10-325] Previous Rx's Medication Instructions Recorded Pantoprazole Sodium [Protonix] 40 mg PO BID #60 08/12/21 Allergies Allergy/AdvReac Type Severity Reaction Status Date / Time sulfamethoxazole Allergy Rash/Hives Verified 08/09/21 20:55 [From Bactrim] trimethoprim [From Bactrim] Allergy Rash/Hives Verified 08/09/21 20:55 Review of Systems ROS Statement: Those systems with pertinent positive or pertinent negative responses have been documented in the HPI. ROS Other: All systems not noted in ROS Statement are negative. Past Medical History Past Medical History: GERD/Reflux, Hyperlipidemia, Renal Disease Additional Past Medical History / Comment(s): Gastroparesis, gastritis, esophageal tears, chronic low back pain, herniated lower discs, bilateral wrist tendonitis with R side worse, R shoulder pain past couple months, numbness to bilateral hand fingers when first wakes, migraines, instructed to sleep with HOB up 6 inches d/t heart rate dropping with sleep, vertigo, pyelonephritis, History of Any Multi-Drug Resistant Organisms: None Reported Past Surgical History: Appendectomy, Tubal Ligation Additional Past Surgical History / Comment(s): Botox injection "mouth" of stomach-R/T SPASMS , EGDs, colonoscopy, vaginal cyst drained. Past Anesthesia/Blood Transfusion Reactions: No Reported Reaction Additional Past Anesthesia/Blood Transfusion Reaction / Comment(s): Never had blood transfusion. Past Psychological History: Anxiety, Bipolar, Depression Smoking Status: Current every day smoker Past Alcohol Use History: None Reported Past Drug Use History: Marijuana - Past Family History Mother Family Medical History: Cancer Additional Family Medical History / Comment(s): Mother is living. She has had breast cancer and 2 back surgeries. Father Family Medical History: No Reported History Additional Family Medical History / Comment(s): Father had ETOH abuse and was manic depressive. He after a fall where he fractured his back then "drank" himself to . Brother(s) Family Medical History: Neurologic Disorder Sister(s) Family Medical History: No Reported History Son(s) Family Medical History: No Reported History Daughter(s) Family Medical History: No Reported History General Exam General appearance: alert, in no apparent distress, anxious Head exam: Present: atraumatic, normocephalic, normal inspection Eye exam: Present: normal appearance, PERRL, EOMI. Absent: scleral icterus, conjunctival injection, periorbital swelling ENT exam: Present: normal exam, mucous membranes moist Neck exam: Present: normal inspection. Absent: tenderness, meningismus, lymphadenopathy Respiratory exam: Present: normal lung sounds bilaterally. Absent: respiratory distress, wheezes, rales, rhonchi, stridor Cardiovascular Exam: Present: regular rate, normal rhythm, normal heart sounds. Absent: systolic murmur, diastolic murmur, rubs, gallop, clicks GI/Abdominal exam: Present: soft, normal bowel sounds. Absent: distended, tenderness, guarding, rebound, rigid Extremities exam: Present: normal inspection, full ROM, normal capillary refill. Absent: tenderness, pedal edema, joint swelling, calf tenderness Back exam: Present: normal inspection Neurological exam: Present: alert, oriented X3, CN II-XII intact Psychiatric exam: Present: normal affect, normal mood Skin exam: Present: warm, dry, intact, normal color. Absent: rash Course Vital Signs 08/09/21 08/09/21 08/09/21 20:48 22:21 23:43 Temperature 97.4 F L Pulse Rate 98 86 74 Respiratory 19 16 18 Rate Blood Pressure 134/94 141/95 120/69 O2 Sat by Pulse 96 94 L 94 L Oximetry 08/10/21 08/10/21 01:41 03:14 Temperature 98.2 F Pulse Rate 72 65 Respiratory 15 14 Rate Blood Pressure 99/56 104/68 O2 Sat by Pulse 95 94 L Oximetry - Reevaluation(s) Reevaluation #1: Medical record is reviewed Patient symptoms are significantly improved here in the ER Patient informed of results and questions are answered Patient is in no acute distress Medical Decision Making - Medical Decision Making 41 female with intractable nausea vomiting abdominal pain. Patient be admitted for symptom control - Lab Data Result diagrams: 08/12/21 05:12 08/12/21 05:12 Lab Results 08/09/21 08/09/21 08/09/21 Range/Units 21:38 22:10 22:10 WBC 15.3 H (3.8-10.6) k/uL RBC 4.39 (3.80-5.40) m/uL Hgb 14.9 (11.4-16.0) gm/dL Hct 42.7 (34.0-46.0) % MCV 97.3 (80.0-100.0) fL MCH 34.0 (25.0-35.0) pg MCHC 34.9 (31.0-37.0) g/dL RDW 12.4 (11.5-15.5) % Plt Count 518 H (150-450) k/uL MPV 7.6 Neutrophils % 92 % Lymphocytes % 4 % Monocytes % 2 % Eosinophils % 1 % Basophils % 0 % Neutrophils # 14.1 H (1.3-7.7) k/uL Lymphocytes # 0.7 L (1.0-4.8) k/uL Monocytes # 0.3 (0-1.0) k/uL Eosinophils # 0.2 (0-0.7) k/uL Basophils # 0.0 (0-0.2) k/uL Sodium 139 (137-145) mmol/L Potassium 5.0 (3.5-5.1) mmol/L Chloride 105 (98-107) mmol/L Carbon Dioxide 16 L (22-30) mmol/L Anion Gap 18 mmol/L BUN 18 H (7-17) mg/dL Creatinine 1.10 H (0.52-1.04) mg/dL Est GFR (CKD-EPI)AfAm 72 (>60 ml/min/1.73 sqM) Est GFR (CKD-EPI)NonAf 62 (>60 ml/min/1.73 sqM) Glucose 203 H (74-99) mg/dL Calcium 10.7 H (8.4-10.2) mg/dL Total Bilirubin 0.8 (0.2-1.3) mg/dL AST 25 (14-36) U/L ALT 20 (4-34) U/L Alkaline Phosphatase 98 (38-126) U/L Total Protein 9.1 H (6.3-8.2) g/dL Albumin 5.3 H (3.5-5.0) g/dL Amylase 71 (30-110) U/L Lipase 25 (23-300) U/L Urine Color Yellow Urine Appearance Cloudy H (Clear) Urine pH 6.0 (5.0-8.0) Ur Specific [place] 1.028 (1.001-1.035) Urine Protein Trace H (Negative) Urine Glucose (UA) Negative (Negative) Urine Ketones Trace H (Negative) Urine Blood Small H (Negative) Urine Nitrite Negative (Negative) Urine Bilirubin Negative (Negative) Urine Urobilinogen <2.0 (<2.0) mg/dL Ur Leukocyte Esterase Negative (Negative) Urine RBC 5 (0-5) /hpf Urine WBC 3 (0-5) /hpf Ur Squamous Epith Cells 3 (0-4) /hpf Urine Bacteria Rare H (None) /hpf Hyaline Casts 3 H (0-2) /lpf Urine Mucus Moderate H (None) /hpf - Radiology Data Radiology results: report reviewed (X-ray KUB is unchanged), image reviewed Disposition Clinical Impression: Nausea and vomiting, Abdominal pain, Intractable nausea and vomiting, Dehydration, Gastroparesis Disposition: ADMITTED IP TO THIS [facility] Condition: Good Is patient prescribed a controlled substance at d/c from ED?: No
[2021-08-09] MEDS ORDERED: NALOXONE 0.4 MG/ML 1 ML VIAL IV PRN (23:37)
[2021-08-09] MEDS: SODIUM CHLORIDE 0.9% 1,000 ML IV SCH (23:59)
[2021-08-10] MEDS: ONDANSETRON 4 MG/2 ML VIAL IVP PRN ×3 (01:40→20:04)
[2021-08-10] MEDS: HYDROmorphone 1 MG/ML 1 ML SYRINGE IVP PRN ×6 (01:40→20:33)
[2021-08-10] MEDS: SODIUM CHLORIDE 0.9% 1,000 ML IV SCH ×3 (01:40→20:53)
[2021-08-10 06:54] LABS: Basophils % (A) 0 %; Eosinophils # (A) 0.1 k/uL (0-0.7); Eosinophils % (A) 1 %; HCT 38.2 % (34.0-46.0); HGB 12.7 gm/dL (11.4-16.0); Lymphocytes # (A) 1.6 k/uL (1.0-4.8); Lymphocytes % (A) 15 %; MCH 33.4 pg (25.0-35.0); MCHC 33.3 g/dL (31.0-37.0); MCV 100.5 fL (80.0-100.0); Mean Platelet Volume 7.6; Monocytes # (A) 0.5 k/uL (0-1.0); Monocytes % (A) 5 %; Neutrophils % (A) 77 %; Platelet Count 415 k/uL (150-450); RDW 12.4 % (11.5-15.5); WBC 10.5 k/uL (3.8-10.6)
[2021-08-10 07:51] LABS: African American GFR (CKD) >90 (>60 ml/min/1.73 sqM); Anion Gap 10 mmol/L; Blood Urea Nitrogen 19 mg/dL (7-17); Calcium 9.3 mg/dL (8.4-10.2); Carbon Dioxide 20 mmol/L (22-30); Chloride 111 mmol/L (98-107); Glucose 133 mg/dL (74-99); Non-African American GFR(CKD) >90 (>60 ml/min/1.73 sqM); Phosphorus 3.7 mg/dL (2.5-4.5); Potassium 4.6 mmol/L (3.5-5.1); Sodium 141 mmol/L (137-145)
[2021-08-10] MEDS ORDERED: PANTOPRAZOLE 40 MG/10 ML VIAL IV SCH (09:00)
[2021-08-10 17:30] LABS: Appearance,Urine Cloudy (Clear); Bacteria,Urine Rare /hpf; Bilirubin,Urine Negative (Negative); Blood,Urine Small (Negative); Color,Urine Yellow; Glucose,Urine (UA) Negative (Negative); Hyaline Casts,Urine 3 /lpf (0-2); Ketones,Urine Trace (Negative); Leukocyte Esterase,Urine Negative (Negative); Mucus,Urine Moderate /hpf; Nitrite,Urine Negative (Negative); Protein,Urine Trace (Negative); RBC,Urine 5 /hpf (0-5); Specific Gravity,Urine 1.028 (1.001-1.035); Squamous Epithelial Cell,Urine 3 /hpf (0-4); Urobilinogen,Urine <2.0 mg/dL (<2.0); WBC,Urine 3 /hpf (0-5)
[2021-08-10] MEDS ORDERED: TEMAZEPAM 15 MG CAP PO PRN (18:03)
[2021-08-10] MEDS ORDERED: LORazepam 2 MG/ML INJ IV PRN (18:03)
--- NOTE | 2021-08-10 18:30 | HP ---
HISTORY AND PHYSICAL DATE OF SERVICE: 08/10/2021 CHIEF COMPLAINTS: Abdominal pain as well as vomiting. HISTORY OF PRESENT ILLNESS: This 41-year-old woman with a past medical history of multiple medical problems, including GERD, hypertension, history of renal disease, history of severe gastroparesis, history of bilateral wrist tenderness, history of appendectomy, tubal ligation, anxiety, bipolar depression, being followed by Dr. Bui in the outpatient setting, was previously admitted with intractable vomiting and gastroparesis. The patient currently was complaining of nausea and vomiting for several days. The patient was unable to keep anything down. The patient was admitted for further evaluation and treatment. There is no history of any fever, rigors or chills. No history of headache, loss of consciousness, seizures. PAST MEDICAL HISTORY: History of GERD, hyperlipidemia, history of renal disease, history of gastroparesis, gastritis, appendectomy. HOME MEDICATIONS: Protonix, Zofran, [place] p.r.n. ALLERGIES: BACTRIM. FAMILY HISTORY: History of cancer in the family. SOCIAL HISTORY: History of THC, history of smoking. REVIEW OF SYSTEMS: ENT: No diminished hearing. No diminished vision. CARDIOVASCULAR SYSTEM: No angina, palpitations. RESPIRATORY SYSTEM: No cough, hemoptysis. GI: As mentioned earlier. : No dysuria. NERVOUS SYSTEM: No numbness, weakness. ALLERGY/IMMUNOLOGY: No asthma or hay fever. MUSCULOSKELETAL: As mentioned earlier. HEMATOLOGY/ONCOLOGY: No history of anemia. ENDOCRINE: No history of diabetes, hypothyroidism. CONSTITUTIONAL: As mentioned earlier. DERMATOLOGY: Negative. RHEUMATOLOGY: Negative. PSYCHIATRY: As mentioned earlier. PHYSICAL EXAMINATION: Patient is alert, oriented x3. Pulse 72, blood pressure 99/52, respirations 16, temperature 97.9, pulse ox 94% on room air. HEENT: Conjunctivae normal. NECK: No jugular venous distention. CARDIOVASCULAR: S1, S2 muffled. RESPIRATION: Breath sounds diminished at the bases. No rhonchi. No crackles. ABDOMEN: Soft. Mild diffuse tenderness present. No guarding. No rigidity. No mass palpable. LEGS: No edema. No swelling. NERVOUS SYSTEM: Higher functions as mentioned earlier. Moves all 4 limbs. No focal motor or sensory deficit. LYMPHATICS: No lymph node palpable in neck, axillae or groin. SKIN: No ulcer, rash, bleeding. JOINTS: No active deforming arthropathy. LAB STUDIES: WBC 10.5, hemoglobin 12.7. Sodium 141, potassium 4.6 and glucose 133. ASSESSMENT: 1. Intractable nausea and vomiting; possible acute gastroparesis, acute exacerbation. 2. Severe dehydration, present on admission. 3. Acute renal failure and acute tubular necrosis, present on admission, secondary to prerenal factors. 4. Acute metabolic acidosis secondary to renal failure, present on admission. 5. Increased white count, possibly reactive, present on admission. 6. History of gastroesophageal reflux disease. 7. History of gastritis. 8. History of esophageal tears. 9. History of chronic back pain and degenerative joint disease. 10.History of migraines. 11.History of appendectomy. 12.History of tubal ligation. 13.History of Botox injection in the stomach. 14.Anxiety, bipolar, depression. 15.History of nicotine dependence, continued, ongoing. 16.History of THC. 17.FULL CODE. RECOMMENDATIONS AND DISCUSSION: In this 41-year-old woman who presented with multiple complex medical issues, we will monitor the patient closely, continue the current medications. Symptomatic treatment will be provided. Repeat labs. Resume the home medications. DVT prophylaxis. Prognosis guarded because of multiple complex medical issues. Further recommendations to follow. GI consultation also has been recommended. MMODL / IJN: [id number] / MTDElda
[2021-08-10] MEDS: NICOTINE 14MG/24HR PATCH TRANSDERM SCH (19:32)
[2021-08-10] MEDS ORDERED: ACETAMINOPHEN TAB 325 MG TAB PO PRN (19:35)
[2021-08-10] MEDS: ALBUTEROL NEBULIZED 2.5 MG/3 ML INHALATION SCH (20:02)
[2021-08-10] MEDS: PANTOPRAZOLE 40 MG/10 ML VIAL IVP SCH (20:36)
[2021-08-10] MEDS: HEPARIN SODIUM,PORCINE/PF 5,000 UNIT/0.5 ML SYRINGE SQ SCH (20:36)
[2021-08-11] MEDS: HYDROmorphone 1 MG/ML 1 ML SYRINGE IVP PRN ×6 (00:54→21:36)
[2021-08-11] MEDS: METOCLOPRAMIDE 5 MG/ML 2 ML VIAL IVP SCH ×4 (00:56→23:58)
[2021-08-11] MEDS: ONDANSETRON 4 MG/2 ML VIAL IVP PRN ×3 (05:01→21:36)
[2021-08-11] MEDS: ALBUTEROL NEBULIZED 2.5 MG/3 ML INHALATION SCH ×4 (07:28→19:35)
[2021-08-11] MEDS: NICOTINE 14MG/24HR PATCH TRANSDERM SCH (07:55)
[2021-08-11] MEDS: HEPARIN SODIUM,PORCINE/PF 5,000 UNIT/0.5 ML SYRINGE SQ SCH ×2 (07:56→20:57)
[2021-08-11] MEDS: PANTOPRAZOLE 40 MG/10 ML VIAL IVP SCH ×2 (07:56→20:57)
[2021-08-11] MEDS: SODIUM CHLORIDE 0.9% 1,000 ML IV SCH ×2 (11:54→23:59)
--- NOTE | 2021-08-11 18:51 | PN ---
PROGRESS NOTE DATE OF SERVICE: 08/11/2021 This 41-year-old woman was admitted with intractable abdominal pain, nausea and vomiting also had elevated WBC, which is improving. No chest pain. No palpitations. No fever. PHYSICAL EXAMINATION: Alert and oriented x3. Pulse 72, blood pressure 90/50, respiration 17, temperature 98.4, pulse ox 97% on room air. HEENT: Conjunctivae normal. Oral mucosa moist. NECK: No jugular venous distention. No lymph node enlargement. CARDIOVASCULAR: S1, S2, muffled. No S3, no S4, RESPIRATORY: Diminished breath sounds at the bases. Scattered rhonchi. ABDOMEN: Soft. LEGS: No edema, no swelling. NERVOUS SYSTEM: No focal deficits. LAB STUDIES: WBC 10.2, hemoglobin 12.7, MCV noted. COVID-19 is negative. ASSESSMENT: 1. Intractable nausea and vomiting with possible acute gastroparesis acute exacerbation. 2. Severe dehydration, present on admission. 3. Acute renal failure with acute tubular necrosis, present on admission secondary to prerenal factors. 4. Acute metabolic acidosis secondary to renal failure, present on admission. 5. Increased WBC possibly reactive, present on admission. 6. History of GERD. 7. History of gastritis. 8. History of esophageal tears. 9. History of chronic back pain, DJD. 10.History of migraines. 11.History of appendectomy. 12.History of hiatal hernia. 13.History of Botox injection in the GE junction. 14.Anxiety, bipolar, depression. 15.History of nicotine dependence, continued, ongoing. 16.History of THC. 17.FULL CODE. RECOMMENDATIONS: Recommend to continue current medications, symptomatic treatment. Advance diet as tolerated. Prognosis guarded. Further recommendations to follow. MMODL / IJN: [id number] /
[2021-08-11 20:42] VITALS: RESP 18
[2021-08-12] MEDS: HYDROmorphone 1 MG/ML 1 ML SYRINGE IVP PRN ×2 (01:16→08:01)
[2021-08-12 04:41] VITALS: BP 116/70; TEMP 98.6
[2021-08-12 05:56] LABS: Basophils % (A) 0 %; Eosinophils # (A) 0.1 k/uL (0-0.7); Eosinophils % (A) 1 %; HCT 32.1 % (34.0-46.0); HGB 11.1 gm/dL (11.4-16.0); Lymphocytes # (A) 2.8 k/uL (1.0-4.8); Lymphocytes % (A) 41 %; MCH 33.9 pg (25.0-35.0); MCHC 34.7 g/dL (31.0-37.0); MCV 97.7 fL (80.0-100.0); Mean Platelet Volume 7.7; Monocytes # (A) 0.3 k/uL (0-1.0); Monocytes % (A) 5 %; Neutrophils # (A) 3.5 k/uL (1.3-7.7); Neutrophils % (A) 51 %; Platelet Count 355 k/uL (150-450); RBC 3.28 m/uL (3.80-5.40); RDW 12.1 % (11.5-15.5)
[2021-08-12] MEDS: ALBUTEROL NEBULIZED 2.5 MG/3 ML INHALATION SCH ×2 (07:20→12:46)
[2021-08-12 07:32] VITALS: PULSE 69
[2021-08-12] MEDS: NICOTINE 14MG/24HR PATCH TRANSDERM SCH (08:02)
[2021-08-12] MEDS: METOCLOPRAMIDE 5 MG/ML 2 ML VIAL IVP SCH (08:02)
[2021-08-12] MEDS: PANTOPRAZOLE 40 MG/10 ML VIAL IVP SCH (08:02)
[2021-08-12] MEDS: HEPARIN SODIUM,PORCINE/PF 5,000 UNIT/0.5 ML SYRINGE SQ SCH (08:02)
[2021-08-12 09:42] LABS: African American GFR (CKD) 130.3 (60.0-200.0); Anion Gap 7.1 mmol/L (4.00-12.00); BUN/Creat Ratio 11.67 Ratio (12.00-20.00); Calcium 8.4 mg/dL (8.7-10.3); Carbon Dioxide 23.9 mmol/L (21.6-31.8); Non-African American GFR(CKD) 112.4 (60.0-200.0); Potassium 3.6 mmol/L (3.5-5.5)
[2021-08-12] MEDS: ONDANSETRON 4 MG/2 ML VIAL IVP PRN (12:06)
--- NOTE | 2021-08-12 21:38 | DS ---
DISCHARGE SUMMARY DATE OF SERVICE: 08/12/2021 FINAL DIAGNOSES: 1. Intractable nausea and vomiting possibly acute gastroparesis acute exacerbation. 2. Severe dehydration present on admission. 3. Acute renal failure with acute tubular necrosis present on admission secondary to prerenal factors. 4. Acute metabolic acidosis secondary to renal failure present on admission. 5. Increased WBC possibly reactive present on admission. 6. History of gastroesophageal reflux disease. 7. History of gastritis. 8. History of esophagitis. 9. History of chronic back pain/degenerative joint disease. 10.History of migraine. 11.History of appendectomy. 12.History of hiatal hernia. 13.History of Botox injection in the GE junction. 14.Anxiety, bipolar depression. 15.History of nicotine dependence. Continued ongoing. 16.History of THC. 17.FULL CODE. DISCHARGE DISPOSITION: The patient will be discharged in stable condition with guarded prognosis. HISTORY OF PRESENT ILLNESS: This 41-year-old woman with past medical history of multiple medical problems admitted with intractable nausea and vomiting with possible acute gastroparesis, acute exacerbation, treated symptomatically. Patient improved significantly. On exam, vitals signs stable. Cardiovascular: S1, S2. Abdomen soft. Nervous system: No focal deficits. The patient is recommended to stop at this time. DISCHARGE ADVICE AND MEDICATIONS: 1. Diet is cardiac. 2. Activity limited until followup. 3. Otherwise, follow up with Dr. Bui 2-3 days. 4. Follow up with Dr. Flores as recommended. 5. [place] 10 mg q.6 p.r.n. 6. Zofran 8 mg b.i.d. p.r.n. 7. Protonix 40 mg p.o. b.i.d. Once again the patient discharged in stable condition with guarded prognosis. MMODL / IJN: [id number] / MTDD
== END 2021-08-12 13:00 | disposition home or self-care (01) ==
LOC: EC 20:07 → 6NMEDSUR 23:37 → 5NMEDONC 08-10 03:02 → OBSVTOIN 08-12 10:44 → INTOOBSV 08-12 10:44 → UNDODISIN 08-12 13:00
PROVIDERS: ADMIT Hospitalist; ATTEND Hospitalist
DX: R11.2 Nausea with vomiting, unspecified (principal); R10.9 Unspecified abdominal pain; E86.0 Dehydration; N17.0 Acute kidney failure with tubular necrosis; E87.2 Acidosis; D72.829 Elevated white blood cell count, unspecified; K21.9 Gastro-esophageal reflux disease without esophagitis; K29.70 Gastritis, unspecified, without bleeding; K20.90 Esophagitis, unspecified without bleeding; G89.29 Other chronic pain; M19.90 Unspecified osteoarthritis, unspecified site; G43.909 Migraine, unspecified, not intractable, without status migrainosus; K44.9 Diaphragmatic hernia without obstruction or gangrene; F41.9 Anxiety disorder, unspecified; F31.30 Bipolar disorder, current episode depressed, mild or moderate severity, unspecified; F17.200 Nicotine dependence, unspecified, uncomplicated; E78.5 Hyperlipidemia, unspecified; M51.26 Other intervertebral disc displacement, lumbar region; M77.8 Other enthesopathies, not elsewhere classified; M25.511 Pain in right shoulder; R20.0 Anesthesia of skin; I10 Essential (primary) hypertension; Z20.822 Contact with and (suspected) exposure to COVID-19; Z90.49 Acquired absence of other specified parts of digestive tract; Z88.2 Allergy status to sulfonamides; Z79.899 Other long term (current) drug therapy; Z80.3 Family history of malignant neoplasm of breast; Z81.1 Family history of alcohol abuse and dependence; Z81.8 Family history of other mental and behavioral disorders; Z82.0 Family history of epilepsy and other diseases of the nervous system
CPT/HCPCS: 96376 ×4; 96361 ×5; 96365; 96372 ×4; 96374; 96375 ×2; 99285; 36415; 94640 ×3; 80053; 80048 ×2; 82150; 83690; 83735; 84100; 85025 ×3; 81001; 87635; 74018; G0378 ×4; J2270; J0500; J2765 ×2; J2405 ×4; J0696 ×2; J1170 ×4; C9113 ×3; J1644 ×3

== ENCOUNTER 2021-09-10 00:52 | Observation (INO) | payer MEDICARE ==
[2021-09-10] MEDS ORDERED: HYDROmorphone 1 MG/ML 1 ML SYRINGE IVP STA (01:23)
[2021-09-10] MEDS ORDERED: ONDANSETRON 4 MG/2 ML VIAL IVP STA (01:23)
[2021-09-10] MEDS ORDERED: PANTOPRAZOLE 40 MG/10 ML VIAL IVP STA (01:23)
[2021-09-10] MEDS ORDERED: KETOROLAC 15 MG/ML 1 ML VIAL IVP STA (01:23)
[2021-09-10] MEDS ORDERED: LORazepam 2 MG/ML INJ IV STA (01:23)
[2021-09-10] MEDS ORDERED: SODIUM CHLORIDE 0.9% 1,000 ML IV STA ×2 (01:23)
[2021-09-10] MEDS ORDERED: SODIUM CHLORIDE 0.9% 500 ML 500 ML IV STA (01:23)
--- NOTE | 2021-09-10 01:31 | ED ---
Chest Pain HPI - General Chief Complaint: Chest Pain Stated Complaint: vomiting Time Seen by Provider: 09/10/21 01:03 Source: patient Mode of arrival: wheelchair Limitations: no limitations - Related Data Home Medications Medication Instructions Recorded Confirmed Ondansetron Odt [Zofran ODT] 8 mg PO BID 10/23/20 08/09/21 HYDROcodone/APAP 10-325MG [[place] 0.5 - 1 tab PO DAILY PRN 07/05/21 08/09/21 10-325] Previous Rx's Medication Instructions Recorded Pantoprazole Sodium [Protonix] 40 mg PO BID #60 08/12/21 Allergies Allergy/AdvReac Type Severity Reaction Status Date / Time sulfamethoxazole Allergy Rash/Hives Verified 09/10/21 01:02 [From Bactrim] trimethoprim [From Bactrim] Allergy Rash/Hives Verified 09/10/21 01:02 Review of Systems ROS Statement: Those systems with pertinent positive or pertinent negative responses have been documented in the HPI. ROS Other: All systems not noted in ROS Statement are negative. EKG Findings - EKG Comments: EKG Findings:: EKG is sinus bradycardia 74 MT 134 QRS 80 QTC 4:30 Past Medical History Past Medical History: GERD/Reflux, Hyperlipidemia, Renal Disease Additional Past Medical History / Comment(s): Gastroparesis, gastritis, esophageal tears, chronic low back pain, herniated lower discs, bilateral wrist tendonitis with R side worse, R shoulder pain past couple months, numbness to bilateral hand fingers when first wakes, migraines, instructed to sleep with HOB up 6 inches d/t heart rate dropping with sleep, vertigo, pyelonephritis, History of Any Multi-Drug Resistant Organisms: None Reported Past Surgical History: Appendectomy, Tubal Ligation Additional Past Surgical History / Comment(s): Botox injection "mouth" of stomach-R/T SPASMS , EGDs, colonoscopy, vaginal cyst drained. Past Anesthesia/Blood Transfusion Reactions: No Reported Reaction Additional Past Anesthesia/Blood Transfusion Reaction / Comment(s): Never had blood transfusion. Past Psychological History: Anxiety, Bipolar, Depression Smoking Status: Current every day smoker Past Alcohol Use History: None Reported Past Drug Use History: Marijuana - Past Family History Mother Family Medical History: Cancer Additional Family Medical History / Comment(s): Mother is living. She has had breast cancer and 2 back surgeries. Father Family Medical History: No Reported History Additional Family Medical History / Comment(s): Father had ETOH abuse and was manic depressive. He after a fall where he fractured his back then "drank" himself to . Brother(s) Family Medical History: Neurologic Disorder Sister(s) Family Medical History: No Reported History Son(s) Family Medical History: No Reported History Daughter(s) Family Medical History: No Reported History General Exam Limitations: no limitations Course Vital Signs 09/10/21 09/10/21 09/10/21 00:58 02:30 03:35 Temperature 98.5 F Pulse Rate 109 H 66 79 Respiratory 18 18 16 Rate Blood Pressure 136/88 105/65 101/59 O2 Sat by Pulse 95 96 96 Oximetry 09/10/21 04:38 Temperature 97.9 F Pulse Rate 68 Respiratory 18 Rate Blood Pressure 101/63 O2 Sat by Pulse 96 Oximetry Disposition Clinical Impression: Gastroparesis, Dehydration, Abdominal pain, Intractable nausea and vomiting, Nausea and vomiting Disposition: [facility] Condition: Fair Is patient prescribed a controlled substance at d/c from ED?: No Referrals: eJwell Bui MD [Primary Care Provider] - 1-2 days
[2021-09-10 02:12] LABS: Basophils % (A) 0 %; Eosinophils # (A) 0.1 k/uL (0-0.7); Eosinophils % (A) 1 %; HCT 45.3 % (34.0-46.0); Lymphocytes # (A) 0.7 k/uL (1.0-4.8); Lymphocytes % (A) 4 %; MCH 33.1 pg (25.0-35.0); MCHC 33.1 g/dL (31.0-37.0); MCV 99.9 fL (80.0-100.0); Mean Platelet Volume 8.2; Monocytes # (A) 0.3 k/uL (0-1.0); Monocytes % (A) 2 %; Neutrophils # (A) 13.9 k/uL (1.3-7.7); Neutrophils % (A) 92 %; Platelet Count 428 k/uL (150-450); RBC 4.53 m/uL (3.80-5.40); RDW 11.7 % (11.5-15.5)
[2021-09-10 02:19] LABS: AST 31 U/L (14-36); African American GFR (CKD) >90 (>60 ml/min/1.73 sqM); Albumin 5.4 g/dL (3.5-5.0); Alkaline Phosphatase 82 U/L (38-126); Amylase 56 U/L (30-110); Anion Gap 20 mmol/L; Blood Urea Nitrogen 15 mg/dL (7-17); Calcium 10.7 mg/dL (8.4-10.2); Carbon Dioxide 16 mmol/L (22-30); Chloride 107 mmol/L (98-107); Glucose 180 mg/dL (74-99); Lipase 22 U/L (23-300); Non-African American GFR(CKD) 80 (>60 ml/min/1.73 sqM); Sodium 143 mmol/L (137-145); Total Bilirubin 0.8 mg/dL (0.2-1.3); Total Protein 9.4 g/dL (6.3-8.2)
[2021-09-10 02:26] LABS: ALT 22 U/L (4-34)
--- NOTE | 2021-09-10 03:14 | CT ---
EXAMINATION TYPE: CT abdomen pelvis w con DATE OF EXAM: 09/10/2021 COMPARISON: 06/04/2020 HISTORY: abdominal pain CT DLP: 739.8 mGycm Automated exposure control for dose reduction was used. CONTRAST: Performed with IV Contrast, patient injected with 100 mL of Isovue 300. Images obtained from the diaphragm to the floor the pelvis with IV contrast. The lung bases are clear. There is no pleural effusion. Heart size is normal. There is no pericardial effusion. Liver spleen stomach pancreas gallbladder appear intact. Bile ducts are nondilated. There is no adrenal mass. Kidneys show satisfactory contrast opacification. There is no hydronephrosi s. The ureters are not dilated. There is no retroperitoneal adenopathy. Delayed images show normal re nal excretion. Bladder distends smoothly. There is no inguinal hernia. There is no evidence of a pelv ic mass. Uterus is retroverted. There is no free fluid in the pelvis. Appendix is not seen. There is no sign of thickened appendix. The lumbar vertebra have normal alignme nt. There is degenerative disc space narrowing at L5-S1 with vacuum disc and spur formation. There is no compression fracture. Bony pelvis is intact. The hip joints are intact. IMPRESSION: No acute abnormality of the abdomen pelvis. Appendix not seen. No adverse change compared to old exam .
--- NOTE | 2021-09-10 03:49 | XR ---
EXAMINATION TYPE: XR chest 1V portable DATE OF EXAM: 09/10/2021 COMPARISON: 03/18/2021 HISTORY: Short of breath. Weakness. TECHNIQUE: Single view FINDINGS: Heart and mediastinum are normal. Lungs are clear. Diaphragm is normal. Bony thorax appears normal. IMPRESSION: Normal chest.
[2021-09-10 04:59] LABS: C Reactive Protein 0.9 mg/dL (<1.0)
[2021-09-10 05:11] LABS: Appearance,Urine Clear (Clear); Bacteria,Urine Rare /hpf; Bilirubin,Urine Negative (Negative); Blood,Urine Large (Negative); Budding Yeast,Urine Occasional /hpf; Color,Urine Light Red; Glucose,Urine (UA) Negative (Negative); Hyaline Casts,Urine 97 /lpf (0-2); Ketones,Urine 1+ (Negative); Leukocyte Esterase,Urine Negative (Negative); Mucus,Urine Few /hpf; Nitrite,Urine Negative (Negative); Protein,Urine 1+ (Negative); RBC,Urine >182 /hpf (0-5); Squamous Epithelial Cell,Urine 2 /hpf (0-4); Urobilinogen,Urine <2.0 mg/dL (<2.0); WBC,Urine 11 /hpf (0-5)
[2021-09-10] MEDS ORDERED: LORazepam 2 MG/ML INJ IV PRN (05:13)
[2021-09-10] MEDS ORDERED: NALOXONE 0.4 MG/ML 1 ML VIAL IV PRN (05:13)
[2021-09-10 06:00] LABS: Specific Gravity,Urine >1.050 (1.001-1.035)
[2021-09-10] MEDS: HYDROmorphone 1 MG/ML 1 ML SYRINGE IVP PRN ×5 (06:30→22:52)
[2021-09-10] MEDS: DEXTROSE 5%-0.45% NACL 1,000 ML IV SCH ×2 (06:30→20:22)
[2021-09-10] MEDS: ONDANSETRON 4 MG/2 ML VIAL IVP PRN ×2 (10:09→17:17)
[2021-09-10 15:29] LABS: African American GFR (CKD) >90 (>60 ml/min/1.73 sqM); Anion Gap 7 mmol/L; Blood Urea Nitrogen 18 mg/dL (7-17); Carbon Dioxide 21 mmol/L (22-30); Chloride 113 mmol/L (98-107); Glucose 115 mg/dL (74-99); Non-African American GFR(CKD) >90 (>60 ml/min/1.73 sqM); Potassium 3.8 mmol/L (3.5-5.1); Sodium 141 mmol/L (137-145)
[2021-09-10 15:51] LABS: Basophils % (A) 0 %; Eosinophils % (A) 0 %; HCT 33.5 % (34.0-46.0); Lymphocytes # (A) 2.1 k/uL (1.0-4.8); Lymphocytes % (A) 22 %; MCH 34.2 pg (25.0-35.0); MCHC 34.3 g/dL (31.0-37.0); MCV 99.5 fL (80.0-100.0); Monocytes # (A) 0.5 k/uL (0-1.0); Monocytes % (A) 5 %; Neutrophils # (A) 6.7 k/uL (1.3-7.7); Neutrophils % (A) 70 %; Platelet Count 298 k/uL (150-450); RBC 3.37 m/uL (3.80-5.40); RDW 12.2 % (11.5-15.5); WBC 9.6 k/uL (3.8-10.6)
[2021-09-10 15:52] LABS: HGB 11.5 gm/dL (11.4-16.0)
--- NOTE | 2021-09-10 17:25 | P.HPIM ---
History of Present Illness H&P Date: 09/10/21 Chief Complaint: Chest pain/nausea/vomiting 41-year-old female patient with past medical history of gastroesophageal reflux disease/gastroparesis, hyperlipidemia, renal disease, chronic back pain/herniated disc disease, presents to ED with complaint of sudden onset abdominal and back pain 2 days ago which has been getting progressively worse accompanied by intractable nausea and episodes of vomiting Workup in ED reveals a WBC of 9.6, hemoglobin 11.5, hematocrit 33.5 and platelet count of 298; sodium 141, potassium 3.8, BUN/creatinine of 18/0.55 CT of abdomen and pelvis does not reveal any acute abnormality; chest x-ray is unremarkable Patient continues to have nausea and vomiting despite multiple interventions and is admitted to the hospital for further evaluation Review of Systems REVIEW OF SYSTEMS: CONSTITUTIONAL: No fever, no malaise, no fatigue. HEENT: No recent visual problems or hearing problems. Denied any sore throat. CARDIOVASCULAR: No chest pain, orthopnea, PND, no palpitations, no syncope. PULMONARY: No shortness of breath, no cough, no hemoptysis. GASTROINTESTINAL: No diarrhea, no nausea, no vomiting, no abdominal pain. NEUROLOGICAL: No headaches, no weakness, no numbness. HEMATOLOGICAL: Denies any bleeding or petechiae. GENITOURINARY: Denies any burning micturition, frequency, or urgency. MUSCULOSKELETAL/RHEUMATOLOGICAL: Denies any joint pain, swelling, or any muscle pain. ENDOCRINE: Denies any polyuria or polydipsia. The rest of the 14-point review of systems is negative.ms Past Medical History Past Medical History: GERD/Reflux, Hyperlipidemia, Renal Disease Additional Past Medical History / Comment(s): Gastroparesis, gastritis, esophageal tears, chronic low back pain, herniated lower discs, bilateral wrist tendonitis with R side worse, R shoulder pain past couple months, numbness to bilateral hand fingers when first wakes, migraines, instructed to sleep with HOB up 6 inches d/t heart rate dropping with sleep, vertigo, pyelonephritis, History of Any Multi-Drug Resistant Organisms: None Reported Past Surgical History: Appendectomy, Tubal Ligation Additional Past Surgical History / Comment(s): Botox injection "mouth" of stomach-R/T SPASMS , EGDs, colonoscopy, vaginal cyst drained. Past Anesthesia/Blood Transfusion Reactions: No Reported Reaction Additional Past Anesthesia/Blood Transfusion Reaction / Comment(s): Never had blood transfusion. Past Psychological History: Anxiety, Bipolar, Depression Smoking Status: Current every day smoker Past Alcohol Use History: None Reported Past Drug Use History: Marijuana - Past Family History Mother Family Medical History: Cancer Additional Family Medical History / Comment(s): Mother is living. She has had breast cancer and 2 back surgeries. Father Family Medical History: No Reported History Additional Family Medical History / Comment(s): Father had ETOH abuse and was manic depressive. He after a fall where he fractured his back then "drank" himself to . Brother(s) Family Medical History: Neurologic Disorder Sister(s) Family Medical History: No Reported History Son(s) Family Medical History: No Reported History Daughter(s) Family Medical History: No Reported History Medications and Allergies Home Medications Medication Instructions Recorded Confirmed Type Ondansetron Odt [Zofran ODT] 8 mg PO BID 10/23/20 09/10/21 History HYDROcodone/APAP 10-325MG [[place] 0.5 - 1 tab PO DAILY PRN 07/05/21 09/10/21 History 10-325] Pantoprazole Sodium [Protonix] 40 mg PO BID #60 08/12/21 09/10/21 Rx Allergies Allergy/AdvReac Type Severity Reaction Status Date / Time sulfamethoxazole Allergy Rash/Hives Verified 09/10/21 06:29 [From Bactrim] trimethoprim [From Bactrim] Allergy Rash/Hives Verified 09/10/21 06:29 Physical Exam Vitals: Vital Signs Temp Pulse Resp BP Pulse Ox 09/10/21 11:42 55 L 16 104/66 94 L 09/10/21 08:06 67 16 115/71 95 09/10/21 06:32 98 F 74 16 133/82 95 09/10/21 04:38 97.9 F 68 18 101/63 96 09/10/21 03:35 79 16 101/59 96 09/10/21 02:30 66 18 105/65 96 09/10/21 00:58 98.5 F 109 H 18 136/88 95 Intake and Output 09/09/21 09/10/21 09/10/21 22:59 06:59 14:59 Other: Weight 68.039 kg PHYSICAL EXAMINATION: GENERAL: The patient is alert and oriented x3, not in any acute distress. Well developed, well nourished. HEENT: Pupils are round and equally reacting to light. EOMI. No scleral icterus. No conjunctival pallor. Normocephalic, atraumatic. No pharyngeal erythema. No thyromegaly. CARDIOVASCULAR: S1 and S2 present. No murmurs, rubs, or gallops. PULMONARY: Chest is clear to auscultation, no wheezing or crackles. ABDOMEN: Soft, nontender, nondistended, normoactive bowel sounds. No palpable organomegaly. MUSCULOSKELETAL: No joint swelling or deformity. EXTREMITIES: No cyanosis, clubbing, or pedal edema. NEUROLOGICAL: Gross neurological examination did not reveal any focal deficits. SKIN: No rashes. Results CBC & Chem 7: 09/10/21 15:04 09/10/21 15:04 Labs: Abnormal Lab Results - Last 24 Hours (Table) 09/10/21 09/10/21 09/10/21 Range/Units 01:58 01:58 01:58 WBC 15.0 H (3.8-10.6) k/uL Neutrophils # 13.9 H (1.3-7.7) k/uL Lymphocytes # 0.7 L (1.0-4.8) k/uL Carbon Dioxide 16 L (22-30) mmol/L Glucose 180 H (74-99) mg/dL Plasma Lactic Acid Jose (0.7-2.0) mmol/L Calcium 10.7 H (8.4-10.2) mg/dL Lactate Dehydrogenase 675 H (313-618) U/L Total Protein 9.4 H (6.3-8.2) g/dL Albumin 5.4 H (3.5-5.0) g/dL Lipase 22 L (23-300) U/L Ur Specific [place] (1.001-1.035) Urine Protein (Negative) Urine Ketones (Negative) Urine Blood (Negative) Urine RBC (0-5) /hpf Urine WBC (0-5) /hpf Urine Bacteria (None) /hpf Hyaline Casts (0-2) /lpf Urine Mucus (None) /hpf Urine Yeast (Budding) (None) /hpf 09/10/21 09/10/21 Range/Units 02:22 04:07 WBC (3.8-10.6) k/uL Neutrophils # (1.3-7.7) k/uL Lymphocytes # (1.0-4.8) k/uL Carbon Dioxide (22-30) mmol/L Glucose (74-99) mg/dL Plasma Lactic Acid Jose 4.5 H* (0.7-2.0) mmol/L Calcium (8.4-10.2) mg/dL Lactate Dehydrogenase (313-618) U/L Total Protein (6.3-8.2) g/dL Albumin (3.5-5.0) g/dL Lipase (23-300) U/L Ur Specific [place] >1.050 H (1.001-1.035) Urine Protein 1+ H (Negative) Urine Ketones 1+ H (Negative) Urine Blood Large H (Negative) Urine RBC >182 H (0-5) /hpf Urine WBC 11 H (0-5) /hpf Urine Bacteria Rare H (None) /hpf Hyaline Casts 97 H (0-2) /lpf Urine Mucus Few H (None) /hpf Urine Yeast (Budding) Occasional H (None) /hpf Microbiology - Last 24 Hours (Table) 09/10/21 04:07 Urine Culture - Preliminary Urine,Voided Assessment and Plan Assessment: 1. Intractable nausea and vomiting/abdominal pain - Patient has had episodes of gastroparesis past; reports she usually presents with this symptom complex with gastroparesis - We will start patient on IV fluid hydration, start patient on Reglan 5 mg IV every 6 hours; keep patient nothing by mouth for now and start on a clear liquid diet when symptoms improve - We will start with Protonix 40 mg IV every 12 hours - Patient to months IV pain medication soon as evaluated; did explain to the patient that pain medication is going to make symptoms progressively worse by worsening gastroparesis - We will add Toradol 15 mg every 6 hours when necessary 2. Chronic back pain/herniated disc disease; she denies any exacerbation - We will continue with home dose of [place] and discontinue IV Dilaudid 3. Gastroesophageal reflux disease; patient takes Protonix 40 mg by mouth twice a day at home; we will transition to IV and continue with twice a day dose of DVT prophylaxis; SCDs CODE STATUS; full code
[2021-09-10] MEDS ORDERED: HYDROcodone/APAP 10-325MG 1 EACH TAB PO PRN (17:26)
[2021-09-10] MEDS: PANTOPRAZOLE 40 MG/10 ML VIAL IVP SCH (20:22)
[2021-09-11] MEDS: ONDANSETRON 4 MG/2 ML VIAL IVP PRN ×3 (01:40→19:29)
[2021-09-11] MEDS: HYDROmorphone 1 MG/ML 1 ML SYRINGE IVP PRN ×4 (05:24→22:39)
[2021-09-11] MEDS: PANTOPRAZOLE 40 MG/10 ML VIAL IVP SCH ×2 (09:02→21:08)
[2021-09-11 10:26] LABS: Basophils # (A) 0.03 X 10*3/uL (0.00-0.10); Basophils % (A) 0.4 %; Eosinophils # (A) 0.17 X 10*3/uL (0.04-0.35); Eosinophils % (A) 2.1 %; HGB 10.7 g/dL (12.0-15.0); Lymphocytes # (A) 3.82 X 10*3/uL (0.90-5.00); Lymphocytes % (A) 47.6 %; MCH 32.7 pg (27.0-32.0); MCHC 32.4 g/dL (32.0-37.0); MCV 100.9 fL (80.0-97.0); Mean Platelet Volume 10.9 fL (9.5-12.2); Monocytes # (A) 0.52 X 10*3/uL (0.20-1.00); Monocytes % (A) 6.5 %; Neutrophils # (A) 3.48 X 10*3/uL (1.80-7.70); Neutrophils % (A) 43.3 %; Platelet Count 250 X 10*3/uL (140-440); RBC 3.27 X 10*6/uL (4.10-5.20); RDW 11.9 % (11.5-14.5); WBC 8.03 X 10*3/uL (4.50-10.00)
[2021-09-11 10:57] LABS: African American GFR (CKD) 130.3 (60.0-200.0); Albumin 3.8 g/dL (3.8-4.9); Albumin/Globulin Ratio 1.81 (1.60-3.17); Anion Gap 11.1 mmol/L (4.00-12.00); BUN/Creat Ratio 20.5 Ratio (12.00-20.00); Blood Urea Nitrogen 12.3 mg/dL (9.0-27.0); Calcium 8.6 mg/dL (8.7-10.3); Carbon Dioxide 21.9 mmol/L (21.6-31.8); Globulin 2.1 g/dL (1.6-3.3); Magnesium 2.1 mg/dL (1.5-2.4); Non-African American GFR(CKD) 112.4 (60.0-200.0); Phosphorus 2.8 mg/dL (2.4-5.1); Potassium 3.4 mmol/L (3.5-5.5); Total Bilirubin 0.3 mg/dL (0.30-1.20); Total Protein 5.9 g/dL (6.2-8.2)
[2021-09-11 12:15] LABS: African American GFR (CKD) >90 (>60 ml/min/1.73 sqM); Anion Gap 5 mmol/L; Blood Urea Nitrogen 12 mg/dL (7-17); Calcium 8.5 mg/dL (8.4-10.2); Carbon Dioxide 24 mmol/L (22-30); Chloride 106 mmol/L (98-107); Glucose 102 mg/dL (74-99); Non-African American GFR(CKD) >90 (>60 ml/min/1.73 sqM); Potassium 3.4 mmol/L (3.5-5.1); Sodium 135 mmol/L (137-145)
[2021-09-11] MEDS: DEXTROSE 5%-0.45% NACL 1,000 ML IV SCH ×2 (21:09→21:15)
--- NOTE | 2021-09-11 22:18 | P.PN ---
Subjective Progress Note Date: 09/11/21 41-year-old female patient with past medical history of gastroesophageal reflux disease/gastroparesis, hyperlipidemia, renal disease, chronic back pain/herniated disc disease, presents to ED with complaint of sudden onset abdominal and back pain 2 days ago which has been getting progressively worse accompanied by intractable nausea and episodes of vomiting Workup in ED reveals a WBC of 9.6, hemoglobin 11.5, hematocrit 33.5 and platelet count of 298; sodium 141, potassium 3.8, BUN/creatinine of 18/0.55 CT of abdomen and pelvis does not reveal any acute abnormality; chest x-ray is unremarkable Patient continues to have nausea and vomiting despite multiple interventions and is admitted to the hospital for further evaluation Objective - Vital Signs Vital signs: Vital Signs Temp 98 F 09/11/21 06:57 Pulse 72 09/11/21 06:57 Resp 18 09/11/21 08:00 BP 105/68 09/11/21 06:57 Pulse Ox 95 09/11/21 06:57 Intake & Output 09/10/21 09/11/21 09/11/21 18:59 06:59 18:59 Weight 68.039 kg Other: Voiding Method Toilet # Voids 3 - Exam PHYSICAL EXAMINATION: GENERAL: The patient is alert and oriented x3, not in any acute distress. Well developed, well nourished. HEENT: Pupils are round and equally reacting to light. EOMI. No scleral icterus. No conjunctival pallor. Normocephalic, atraumatic. No pharyngeal erythema. No thyromegaly. CARDIOVASCULAR: S1 and S2 present. No murmurs, rubs, or gallops. PULMONARY: Chest is clear to auscultation, no wheezing or crackles. ABDOMEN: Soft, nontender, nondistended, normoactive bowel sounds. No palpable organomegaly. MUSCULOSKELETAL: No joint swelling or deformity. EXTREMITIES: No cyanosis, clubbing, or pedal edema. NEUROLOGICAL: Gross neurological examination did not reveal any focal deficits. SKIN: No rashes. - Labs CBC & Chem 7: 09/11/21 05:36 09/11/21 11:54 Labs: Abnormal Lab Results - Last 24 Hours (Table) 09/10/21 09/10/21 09/11/21 Range/Units 15:04 15:04 05:36 RBC 3.37 L 3.27 L (3.80-5.40) m/uL Hgb 10.7 L (12.0-15.0) g/dL Hct 33.5 L 33.0 L (34.0-46.0) % MCV 100.9 H (80.0-97.0) fL MCH 32.7 H (27.0-32.0) pg Potassium (3.5-5.5) mmol/L Chloride 113 H (98-107) mmol/L Carbon Dioxide 21 L (22-30) mmol/L BUN 18 H (7-17) mg/dL BUN/Creatinine Ratio (12.00-20.00) Ratio Glucose 115 H (74-99) mg/dL Calcium (8.7-10.3) mg/dL Total Protein (6.2-8.2) g/dL 09/11/21 Range/Units 05:36 RBC (3.80-5.40) m/uL Hgb (12.0-15.0) g/dL Hct (34.0-46.0) % MCV (80.0-97.0) fL MCH (27.0-32.0) pg Potassium 3.4 L (3.5-5.5) mmol/L Chloride (98-107) mmol/L Carbon Dioxide (22-30) mmol/L BUN (7-17) mg/dL BUN/Creatinine Ratio 20.50 H (12.00-20.00) Ratio Glucose (74-99) mg/dL Calcium 8.6 L (8.7-10.3) mg/dL Total Protein 5.9 L (6.2-8.2) g/dL Microbiology - Last 24 Hours (Table) 09/10/21 04:07 Urine Culture - Preliminary Urine,Voided Assessment and Plan Assessment: 1. Intractable nausea and vomiting/abdominal pain - Patient has had episodes of gastroparesis past; reports she usually presents with this symptom complex with gastroparesis - We will start patient on IV fluid hydration, start patient on Reglan 5 mg IV every 6 hours; keep patient nothing by mouth for now and start on a clear liquid diet when symptoms improve - We will start with Protonix 40 mg IV every 12 hours - Patient to months IV pain medication soon as evaluated; did explain to the patient that pain medication is going to make symptoms progressively worse by worsening gastroparesis - We will add Toradol 15 mg every 6 hours when necessary 2. Chronic back pain/herniated disc disease; she denies any exacerbation - We will continue with home dose of [place] and discontinue IV Dilaudid 3. Gastroesophageal reflux disease; patient takes Protonix 40 mg by mouth twice a day at home; we will transition to IV and continue with twice a day dose of DVT prophylaxis; SCDs CODE STATUS; full code
[2021-09-12] MEDS: ONDANSETRON 4 MG/2 ML VIAL IVP PRN ×2 (03:27→13:23)
[2021-09-12] MEDS: HYDROmorphone 1 MG/ML 1 ML SYRINGE IVP PRN ×3 (03:28→13:15)
[2021-09-12] MEDS: PANTOPRAZOLE 40 MG/10 ML VIAL IVP SCH (08:37)
[2021-09-12] MEDS: DEXTROSE 5%-0.45% NACL 1,000 ML IV SCH (08:37)
[2021-09-12 14:16] VITALS: BP 117/79; PULSE 55; RESP 18; TEMP 97.8
[2021-09-12 16:05] LABS: Anion Gap 12.2 mmol/L (4.00-12.00); BUN/Creat Ratio 9.53 Ratio (12.00-20.00); Blood Urea Nitrogen 5.6 mg/dL (9.0-27.0); Calcium 8.6 mg/dL (8.7-10.3); Carbon Dioxide 23.2 mmol/L (21.6-31.8); Non-African American GFR(CKD) 113.1 (60.0-200.0); Potassium 3.6 mmol/L (3.5-5.5)
== END 2021-09-12 15:35 | disposition home or self-care (01) ==
LOC: EC 00:52 → 6NMEDSUR 05:13
PROVIDERS: ADMIT Hospitalist; ATTEND Hospitalist
DX: K31.84 Gastroparesis (principal); Z20.822 Contact with and (suspected) exposure to COVID-19; M51.26 Other intervertebral disc displacement, lumbar region; K21.9 Gastro-esophageal reflux disease without esophagitis; F17.200 Nicotine dependence, unspecified, uncomplicated; E78.5 Hyperlipidemia, unspecified; M77.9 Enthesopathy, unspecified; F31.9 Bipolar disorder, unspecified; F41.9 Anxiety disorder, unspecified; R20.0 Anesthesia of skin; M25.511 Pain in right shoulder; N89.8 Other specified noninflammatory disorders of vagina; Z79.899 Other long term (current) drug therapy; Z88.2 Allergy status to sulfonamides; Z90.49 Acquired absence of other specified parts of digestive tract; Z86.69 Personal history of other diseases of the nervous system and sense organs; Z87.448 Personal history of other diseases of urinary system; Z81.1 Family history of alcohol abuse and dependence; Z80.3 Family history of malignant neoplasm of breast; Z81.8 Family history of other mental and behavioral disorders
CPT/HCPCS: 99285; 96374; 96376 ×3; 96361; 96375; 36415; 93005; 80053 ×2; 80048 ×3; 82150; 83605; 83615; 83690; 83735; 84100; 84484; 85025 ×2; 86140; 81001; 87086; 87635; 71045; 74177; G0378 ×3; J2060; J2405 ×3; J1170 ×3; J1885; C9113 ×3; Q9967

== ENCOUNTER 2021-10-12 08:24 | Observation (INO) | payer MEDICARE ==
[2021-10-12] MEDS ORDERED: FAMOTIDINE 20 MG/2 ML VIAL IV STA (08:58)
[2021-10-12] MEDS ORDERED: MORPHINE SULFATE 4 MG/ML SYRINGE IV STA (08:58)
[2021-10-12] MEDS ORDERED: METOCLOPRAMIDE 5 MG/ML 2 ML VIAL IVP STA (08:58)
[2021-10-12] MEDS ORDERED: SODIUM CHLORIDE 0.9% 1,000 ML IV STA (08:58)
[2021-10-12] MEDS ORDERED: diphenhydrAMINE 50 MG/ML 1 ML VIAL IVP STA (08:58)
--- NOTE | 2021-10-12 09:25 | ED ---
General Adult HPI - General Chief complaint: Nausea/Vomiting/Diarrhea Stated complaint: Vomiting Time Seen by Provider: 10/12/21 08:48 Source: patient, RN notes reviewed, old records reviewed Mode of arrival: ambulatory Limitations: no limitations - History of Present Illness Initial comments: Patient is a 41-year-old female with past medical history remarkable for gastroparesis, GERD, renal disease, gastritis, anxiety presents emergency Department stating that she was a gastroparesis is flaring. She is extremely anxious and states she hasn't thrown up multiple times nonbilious nonbloody emesis. She is unable to tolerate by mouth intake over the last day. She endorses epigastric abdominal discomfort but denies any chest pain. Denies any constipation she had a normal bowel movement that was nonbloody this morning. She does endorse shortness of breath, however states that she typically gets this way when she becomes anxious which she feels right now. Patient is requesting Dilaudid at this time. She denies any other acute complaints at this time. States she has been compliant with her normal medications. She presents emergency Department over concern for her abdominal discomfort. - Related Data Home Medications Medication Instructions Recorded Confirmed Ondansetron Odt [Zofran ODT] 8 mg PO BID 10/23/20 10/12/21 HYDROcodone/APAP 10-325MG [[place] 0.5 - 1 tab PO DAILY PRN 07/05/21 10/12/21 10-325] Previous Rx's Medication Instructions Recorded Pantoprazole Sodium [Protonix] 40 mg PO BID #60 08/12/21 Allergies Allergy/AdvReac Type Severity Reaction Status Date / Time sulfamethoxazole Allergy Rash/Hives Verified 10/12/21 10:17 [From Bactrim] trimethoprim [From Bactrim] Allergy Rash/Hives Verified 10/12/21 10:17 Review of Systems ROS Statement: Those systems with pertinent positive or pertinent negative responses have been documented in the HPI. Review of Systems: CONST: Denies fever EYES: Denies blurry vision ENT: Denies nasal congestion C/V: Denies Chest pain RESP: Denies shortness of breath GI: Endorses abdominal pain : Denies dysuria SKIN: Denies rash. MSK: Denies joint pain. NEURO: Denies headache ROS Other: All systems not noted in ROS Statement are negative. Past Medical History Past Medical History: GERD/Reflux, Hyperlipidemia, Renal Disease Additional Past Medical History / Comment(s): Gastroparesis, gastritis, esophageal tears, chronic low back pain, herniated lower discs, bilateral wrist tendonitis with R side worse, R shoulder pain past couple months, numbness to bilateral hand fingers when first wakes, migraines, instructed to sleep with HOB up 6 inches d/t heart rate dropping with sleep, vertigo, pyelonephritis, History of Any Multi-Drug Resistant Organisms: None Reported Past Surgical History: Appendectomy, Tubal Ligation Additional Past Surgical History / Comment(s): Botox injection "mouth" of stomach-R/T SPASMS , EGDs, colonoscopy, vaginal cyst drained. Past Anesthesia/Blood Transfusion Reactions: No Reported Reaction Additional Past Anesthesia/Blood Transfusion Reaction / Comment(s): Never had blood transfusion. Past Psychological History: Anxiety, Bipolar, Depression Smoking Status: Current every day smoker Past Alcohol Use History: None Reported Past Drug Use History: Marijuana - Past Family History Mother Family Medical History: Cancer Additional Family Medical History / Comment(s): Mother is living. She has had breast cancer and 2 back surgeries. Father Family Medical History: No Reported History Additional Family Medical History / Comment(s): Father had ETOH abuse and was manic depressive. He after a fall where he fractured his back then "drank" himself to . Brother(s) Family Medical History: Neurologic Disorder Sister(s) Family Medical History: No Reported History Son(s) Family Medical History: No Reported History Daughter(s) Family Medical History: No Reported History General Exam - General Exam Comments Initial Comments: General: Appears anxious and mild to moderate distress secondary to her abdominal pain. HEAD: Normal with no signs of head trauma. EYES: PERRLA, EOMI, conjunctiva normal, no discharge. ENT: Hearing grossly intact, normal oropharynx. RESPIRATORY: Clear breath sounds bilaterally. No wheezes, rales, or rhonchi. C/V: Regular rate and rhythm. S1 and S2 auscultated, no edema, peripheral pulses 2+ and intact throughout ABD: Abdomen is soft, nondistended. Patient has tenderness to palpation in the epigastric region. There is no guarding. No peritoneal signs. No rebound t enderness. No CVA tenderness to percussion. No flank tenderness. EXT: Normal range of motion, no obvious deformity SKIN: No rashes or lesions observed on exposed skin. NEURO: Alert and oriented 4. Limitations: no limitations Course Vital Signs 10/12/21 10/12/21 08:43 13:43 Temperature 98.4 F Pulse Rate 96 63 Respiratory 22 18 Rate Blood Pressure 146/68 119/77 O2 Sat by Pulse 94 L 94 L Oximetry Medical Decision Making - Medical Decision Making Based on the patient's presentation and physical exam, she is likely expressing a gastroparesis episode, however we'll obtain abdominal laboratory studies in addition to screening EKG and chest x-ray. Patient was in agreement with this plan. She denies any fevers, chills, sick symptoms.She will be symptomatically treated with 1 L fluid bolus, IV morphine, Benadryl, Reglan, famotidine. She'll be subsequently reevaluated. Patient was in agreement with this plan. There was a delay in obtaining laboratory studies. Reevaluation, patient states her nausea is improved as is her pain, but she is requesting redosed medication. She'll be given additional morphine and Zofran. Patient's laboratory studies were remarkable for a mild increase calcium at 10.5. Urinalysis is remarkable for 1+ ketones but no signs of infection. She is not . Covid swab is negative. Chest x-ray showed no acute cardio pulmonary process. Screening EKG was unremarkable and revealed no signs of acute ischemia. On reevaluation, patient would like to attempt to tolerate by mouth challenge. Pain has resolved. She was able to drink some water but instantly felt nauseous. I discussed with her that I would like to admit her to the hospital for further fluid hydration. She was in agreement this plan. I spoke with the admitting physician, Dr. Valnetine who accepted the patient. Patient was admitted in stable condition to observation. - Lab Data Result diagrams: 10/12/21 11:56 10/12/21 11:56 Lab Results 10/12/21 10/12/21 10/12/21 Range/Units 09:47 11:56 11:56 WBC 8.5 (3.8-10.6) k/uL RBC 4.19 (3.80-5.40) m/uL Hgb 14.4 (11.4-16.0) gm/dL Hct 40.0 (34.0-46.0) % MCV 95.4 (80.0-100.0) fL MCH 34.4 (25.0-35.0) pg MCHC 36.1 (31.0-37.0) g/dL RDW 12.4 (11.5-15.5) % Plt Count 471 H (150-450) k/uL MPV 8.3 Neutrophils % 82 % Lymphocytes % 13 % Monocytes % 3 % Eosinophils % 0 % Basophils % 0 % Neutrophils # 6.9 (1.3-7.7) k/uL Lymphocytes # 1.1 (1.0-4.8) k/uL Monocytes # 0.3 (0-1.0) k/uL Eosinophils # 0.0 (0-0.7) k/uL Basophils # 0.0 (0-0.2) k/uL Sodium 141 (137-145) mmol/L Potassium 4.7 (3.5-5.1) mmol/L Chloride 104 (98-107) mmol/L Carbon Dioxide 17 L (22-30) mmol/L Anion Gap 20 mmol/L BUN 25 H (7-17) mg/dL Creatinine 0.98 (0.52-1.04) mg/dL Est GFR (CKD-EPI)AfAm 82 (>60 ml/min/1.73 sqM) Est GFR (CKD-EPI)NonAf 71 (>60 ml/min/1.73 sqM) Glucose 150 H (74-99) mg/dL Calcium 10.5 H (8.4-10.2) mg/dL Magnesium 2.0 (1.6-2.3) mg/dL Total Bilirubin 0.7 (0.2-1.3) mg/dL AST 29 (14-36) U/L ALT 35 H (4-34) U/L Alkaline Phosphatase 77 (38-126) U/L Total Protein 9.3 H (6.3-8.2) g/dL Albumin 5.3 H (3.5-5.0) g/dL Amylase 62 (30-110) U/L Lipase 31 (23-300) U/L Urine Color Light [place] Urine Appearance Turbid H (Clear) Urine pH 5.5 (5.0-8.0) Ur Specific [place] 1.031 (1.001-1.035) Urine Protein 2+ H (Negative) Urine Glucose (UA) Trace H (Negative) Urine Ketones 1+ H (Negative) Urine Blood Moderate H (Negative) Urine Nitrite Negative (Negative) Urine Bilirubin Negative (Negative) Urine Urobilinogen <2.0 (<2.0) mg/dL Ur Leukocyte Esterase Negative (Negative) Urine RBC 3 (0-5) /hpf Ur Squamous Epith Cells 13 H (0-4) /hpf Amorphous Sediment Occasional H (None) /hpf Urine Mucus Many H (None) /hpf - EKG Data -: EKG Interpreted by Me EKG Comments: 12-lead Electrocardiogram Interpretation Note EKG was reviewed and interpreted by myself. 12-lead ECG performed at 0918 is interpreted by me as revealing normal sinus rhythm at a rate of 95 beats per minute. [place] is normal. IA interval is 134 ms, QRS duration is 74 ms, QTc is 467 ms.. There were no ST or T wave abnormalities to suggest myocardial ischemia or injury. R wave progression across the precordium was satisfactory. By my interpretation this EKG is non-diagnostic for acute ischemia. On co mparison with prior EKGs, there is relatively no change. Disposition Clinical Impression: Gastroparesis, Dehydration, Intractable nausea and vomiting Disposition: ADMITTED IP TO THIS HOSP Condition: Stable
--- NOTE | 2021-10-12 10:06 | XR ---
EXAMINATION TYPE: XR chest 2V DATE OF EXAM: 10/12/2021 COMPARISON: 09/10/2021 HISTORY: 41 year-old female with abdominal pain and vomiting TECHNIQUE: AP and lateral views FINDINGS: The cardiomediastinal silhouette, aorta, and pulmonary vasculature are within normal limits. Lungs an d pleural spaces are clear. IMPRESSION: No acute cardiopulmonary process.
[2021-10-12] MEDS ORDERED: MORPHINE SULFATE 4 MG/ML SYRINGE IVP STA (10:41)
[2021-10-12 12:12] LABS: Basophils % (A) 0 %; Eosinophils % (A) 0 %; HGB 14.4 gm/dL (11.4-16.0); Lymphocytes # (A) 1.1 k/uL (1.0-4.8); Lymphocytes % (A) 13 %; MCH 34.4 pg (25.0-35.0); MCHC 36.1 g/dL (31.0-37.0); MCV 95.4 fL (80.0-100.0); Mean Platelet Volume 8.3; Monocytes # (A) 0.3 k/uL (0-1.0); Monocytes % (A) 3 %; Neutrophils # (A) 6.9 k/uL (1.3-7.7); Neutrophils % (A) 82 %; Platelet Count 471 k/uL (150-450); RBC 4.19 m/uL (3.80-5.40); RDW 12.4 % (11.5-15.5); WBC 8.5 k/uL (3.8-10.6)
[2021-10-12 12:29] LABS: Albumin 5.3 g/dL (3.5-5.0); Calcium 10.5 mg/dL (8.4-10.2); Potassium 4.7 mmol/L (3.5-5.1); Total Bilirubin 0.7 mg/dL (0.2-1.3); Total Protein 9.3 g/dL (6.3-8.2)
[2021-10-12] MEDS ORDERED: ONDANSETRON 4 MG/2 ML VIAL IVP STA (12:35)
[2021-10-12] MEDS ORDERED: NALOXONE 0.4 MG/ML 1 ML VIAL IV PRN (13:27)
[2021-10-12] MEDS ORDERED: MORPHINE SULFATE 4 MG/ML SYRINGE IV PRN (13:27)
[2021-10-12] MEDS: SODIUM CHLORIDE 0.9% 1,000 ML IV SCH (13:42)
[2021-10-12 14:18] LABS: Amorphous Sediment,Urine Occasional /hpf; Appearance,Urine Turbid (Clear); Bilirubin,Urine Negative (Negative); Blood,Urine Moderate (Negative); Color,Urine Light Orange; Glucose,Urine (UA) Trace (Negative); Ketones,Urine 1+ (Negative); Leukocyte Esterase,Urine Negative (Negative); Mucus,Urine Many /hpf; Nitrite,Urine Negative (Negative); PH, Urine 5.5 (5.0-8.0); Protein,Urine 2+ (Negative); RBC,Urine 3 /hpf (0-5); Specific Gravity,Urine 1.031 (1.001-1.035); Squamous Epithelial Cell,Urine 13 /hpf (0-4); Urobilinogen,Urine <2.0 mg/dL (<2.0)
[2021-10-12] MEDS ORDERED: ALPRAZolam 0.25 MG TAB PO PRN (15:32)
[2021-10-12] MEDS: PANTOPRAZOLE 40 MG/10 ML VIAL IVP SCH ×2 (15:57→21:14)
[2021-10-12] MEDS: NICOTINE 14MG/24HR PATCH TRANSDERM SCH (15:58)
--- NOTE | 2021-10-12 16:59 | HP ---
HISTORY AND PHYSICAL DATE OF SERVICE: 10/12/2021. CHIEF COMPLAINT: Intractable nausea and vomiting. HISTORY OF PRESENT ILLNESS: This 41-year-old woman with a past medical history of multiple medical problems, including GERD, hypertension, hyperlipidemia, history of renal disease, gastroparesis, gastritis, esophagitis, chronic low back pain, being followed Dr. Bui in the outpatient setting, was not feeling well over the past couple of days. The patient was previously admitted with intractable vomiting for gastroparesis. The patient had severe dehydration and renal failure and other associated complications also previously. Dr. Bui has evaluated the patient in the outpatient setting and a referral to the [facility] is also being planned at this time. Currently, as mentioned earlier, the patient is complaining of severe abdominal pain and patient is unable to keep anything down. The patient has had multiple non-bilious non- bloody emesis. The patient is admitted for further evaluation and treatment. Her chest x-ray, which was reviewed personally by me, showed no acute abnormality. The labs on admission showed platelets of 471. BUN is indicating some dehydration. Otherwise, calcium is 10.5. UA is turbid, likely concentrated. COVID-19 was negative. There is no history of any fever, rigor or chills at this time. PAST MEDICAL HISTORY: GERD, hyperlipidemia, history of renal disease, gastroparesis, anxiety, bipolar, depression. HOME MEDICATIONS: Protonix, Zofran, Burt. ALLERGIES: BACTRIM. FAMILY HISTORY: History of cancer in the patient's mother, breast cancer and back surgeries. SOCIAL HISTORY: History of smoking and ongoing history of THC. Patient reports that she is trying to cut down the THC. REVIEW OF SYSTEMS: ENT: No diminished hearing. No diminished vision. CARDIOVASCULAR SYSTEM: No angina, palpitations. RESPIRATORY SYSTEM: No cough, hemoptysis. GI: As mentioned earlier. : No dysuria. NERVOUS SYSTEM: No numbness, weakness. ALLERGY/IMMUNOLOGY: No asthma or hay fever. MUSCULOSKELETAL: As mentioned earlier. HEMATOLOGY/ONCOLOGY: No history of anemia. ENDOCRINE: No history of diabetes or hypothyroidism. CONSTITUTIONAL: As mentioned earlier. DERMATOLOGY: Negative. RHEUMATOLOGY: Negative. PSYCHIATRY: As mentioned earlier. PHYSICAL EXAMINATION: Patient alert and oriented x3. Pulse is 96, blood pressure 140/60, respiration 22, temperature 98.4, pulse ox 94% on room air. HEENT: Conjunctivae normal. Oral mucosa is dry. NECK: No jugular venous distention. No carotid bruit. No lymph node enlargement. CARDIOVASCULAR: S1, S2 muffled. RESPIRATION: Breath sounds diminished at the bases. A few scattered rhonchi. ABDOMEN: Soft. Mild diffuse tenderness in the upper part of the abdomen present. No guarding. No rigidity. No mass palpable. LEGS: No edema. No swelling. NERVOUS SYSTEM: Higher functions as mentioned earlier. Moves all 4 limbs. No focal motor or sensory deficit. LYMPHATICS: No lymph node palpable in neck, axillae or groin. SKIN: No ulcer, rash, bleeding. JOINTS: No active deforming arthropathy. LABS: Platelets are 471, sodium 140, potassium 4.7, calcium is 10.5, ALT is 35, albumin is 3.4. UA noted. ASSESSMENT: 1. Acute abdominal pain and vomiting with acute gastroparesis, acute exacerbation. 2. Acute gastritis. 3. Increased platelets. 4. Dehydration with elevated BUN, present on admission. 5. Elevated calcium secondary dehydration. 6. Abnormal urine, possibly dehydration. 7. Gastroesophageal reflux disease. 8. Hypertension. 9. History of renal failure previously. 10.History of esophageal tears. 11.Low back pain and degenerative joint disease. 12.History of pyelonephritis. 13.History of appendectomy. 14.History of Botox injection. 15.History of anxiety, bipolar, depression. 16.History of continued ongoing nicotine dependence. 17.FULL CODE. RECOMMENDATIONS AND DISCUSSION: In this 41-year-old woman who presented with multiple complex medical issues, we will monitor the patient closely, continue the current medications, continue symptomatic treatment. Keep the patient n.p.o. except ice chips. Continue the IV fluids. Symptomatic treatment will be provided. The patient had an extensive workup before and, as mentioned earlier, Dr. Bui is also planning consultation/evaluation with GI at [facility]. The prognosis is guarded because of multiple complex medical issues. Further recommendations to follow. A copy of this dictation is being forwarded to Dr. Bui, who is the primary physician. MMODL / IJN: [id number] / MTDD
[2021-10-12 17:53] LABS: Amphetamine Screen,Urine Not Detected (NotDetected); Barbiturate Screen,Urine Not Detected (NotDetected); Benzodiazepines Screen,Urine Not Detected (NotDetected); Cocaine Screen,Urine Not Detected (NotDetected); Methadone Screen, Urine Not Detected (NotDetected); Opiate Screen,Urine Detected (NotDetected); Oxycodone Screen, Urine Not Detected (NotDetected); Phencyclidine Screen,Urine Not Detected (NotDetected); Tricyclic Antidepressant,Urine Not Detected (NotDetected); Urn Cannabinoid Scrn Detected (NotDetected)
[2021-10-12] MEDS: HYDROmorphone 0.5 MG/0.5 ML SYRINGE IVP PRN ×2 (18:06→22:15)
[2021-10-12] MEDS ORDERED: PANTOPRAZOLE 40 MG TABLET PO SCH (21:00)
[2021-10-12] MEDS: HYDROcodone/APAP 5-325MG 1 EACH TAB PO PRN (21:17)
[2021-10-12] MEDS: ONDANSETRON 4 MG/2 ML VIAL IVP PRN (21:17)
[2021-10-12] MEDS: HEPARIN SODIUM,PORCINE/PF 5,000 UNIT/0.5 ML SYRINGE SQ SCH (21:25)
[2021-10-13] MEDS: TEMAZEPAM 15 MG CAP PO PRN ×2 (01:36→21:24)
[2021-10-13] MEDS: SODIUM CHLORIDE 0.9% 1,000 ML IV SCH ×2 (03:11→04:26)
[2021-10-13] MEDS: HYDROmorphone 0.5 MG/0.5 ML SYRINGE IVP PRN ×4 (08:34→22:15)
[2021-10-13] MEDS: ONDANSETRON 4 MG/2 ML VIAL IVP PRN ×2 (08:34→16:15)
[2021-10-13] MEDS: PANTOPRAZOLE 40 MG/10 ML VIAL IVP SCH ×2 (08:38→21:24)
[2021-10-13] MEDS: NICOTINE 14MG/24HR PATCH TRANSDERM SCH (08:39)
[2021-10-13] MEDS: HEPARIN SODIUM,PORCINE/PF 5,000 UNIT/0.5 ML SYRINGE SQ SCH ×2 (08:39→21:22)
[2021-10-13 12:25] LABS: HCT 34.3 % (37.2-46.3); HGB 11.4 g/dL (12.0-15.0); MCH 33.3 pg (27.0-32.0); MCHC 33.2 g/dL (32.0-37.0); MCV 100.3 fL (80.0-97.0); Mean Platelet Volume 9.8 fL (9.5-12.2); Platelet Count 301 X 10*3/uL (140-440); RBC 3.42 X 10*6/uL (4.10-5.20); RDW 12.2 % (11.5-14.5)
[2021-10-13 13:10] LABS: African American GFR (CKD) 130.3 (60.0-200.0); Albumin 3.8 g/dL (3.8-4.9); Albumin/Globulin Ratio 1.81 (1.60-3.17); Anion Gap 12.6 mmol/L (4.00-12.00); BUN/Creat Ratio 24.67 Ratio (12.00-20.00); Blood Urea Nitrogen 14.8 mg/dL (9.0-27.0); Calcium 8.3 mg/dL (8.7-10.3); Carbon Dioxide 19.4 mmol/L (21.6-31.8); Globulin 2.1 g/dL (1.6-3.3); Non-African American GFR(CKD) 112.4 (60.0-200.0); Potassium 3.7 mmol/L (3.5-5.5); Total Bilirubin 0.4 mg/dL (0.30-1.20); Total Protein 5.9 g/dL (6.2-8.2)
[2021-10-13 14:22] LABS: Basophils # (A) 0.04 X 10*3/uL (0.00-0.10); Basophils % (A) 0.5 %; Eosinophils # (A) 0.06 X 10*3/uL (0.04-0.35); Eosinophils % (A) 0.7 %; Lymphocytes # (A) 4.05 X 10*3/uL (0.90-5.00); Lymphocytes % (A) 47.6 %; Monocytes # (A) 0.64 X 10*3/uL (0.20-1.00); Monocytes % (A) 7.5 %; Neutrophils # (A) 3.69 X 10*3/uL (1.80-7.70); Neutrophils % (A) 43.5 %
[2021-10-13] MEDS: HYDROcodone/APAP 5-325MG 1 EACH TAB PO PRN ×2 (14:38→21:23)
--- NOTE | 2021-10-13 19:09 | PN ---
PROGRESS NOTE DATE OF SERVICE: 10/13/2012 This 41-year-old woman who was admitted with acute intractable nausea and vomiting and acute gastritis exacerbation is being closely monitored. No chest pain. No palpitations. No fever. PHYSICAL EXAMINATION: Alert and oriented x3. Pulse 64, blood pressure 108/77, respirations 16, temperature 97.4, pulse ox 100% on room air. HEENT: Conjunctivae normal. NECK: No jugular venous distention. CARDIOVASCULAR: S1, S2 muffled. RESPIRATION: Breath sounds diminished at the bases. A few scattered rhonchi. ABDOMEN: Soft. Mild diffuse discomfort in the epigastrium. LEGS: No edema. No swelling. NERVOUS SYSTEM: No focal deficit. LABS: WBC 8.2, hemoglobin 11.4, sodium 135, potassium 3.7, and anion gap is 12.6. UA shows opiates and THC. ASSESSMENT: 1. Acute abdominal pain and vomiting with acute gastroparesis, acute exacerbation. 2. Acute gastritis. 3. Increased platelets. 4. Dehydration with elevated BUN, present on admission. 5. Elevated calcium secondary to dehydration. 6. Abnormal urine, possibly dehydration. 7. Gastroesophageal reflux disease. 8. Hypertension. 9. History of renal failure previously. 10.History of esophageal tears. 11.History of low back pain, degenerative joint disease. 12.History of pyelonephritis. 13.History of appendectomy. 14.History of Botox injections. 15.History of anxiety, bipolar, depression. 16.History of ongoing nicotine dependence. 17.History of THC. 18.FULL CODE. RECOMMENDATIONS AND DISCUSSION: I recommend to continue current medications, continue symptomatic treatment. I will initiate some diet. Repeat labs in the morning. Once the patient is feeling better, the patient could be discharged in the next 24-48 hours. Further recommendations to follow. MMODL / IJN: [id number] /
[2021-10-14] MEDS: HYDROmorphone 0.5 MG/0.5 ML SYRINGE IVP PRN ×2 (02:30→07:21)
[2021-10-14] MEDS: SODIUM CHLORIDE 0.9% 1,000 ML IV SCH (04:36)
[2021-10-14] MEDS: ONDANSETRON 4 MG/2 ML VIAL IVP PRN (06:13)
[2021-10-14] MEDS: PANTOPRAZOLE 40 MG/10 ML VIAL IVP SCH (07:22)
[2021-10-14] MEDS: HEPARIN SODIUM,PORCINE/PF 5,000 UNIT/0.5 ML SYRINGE SQ SCH (07:22)
[2021-10-14 07:31] VITALS: BP 114/72; PULSE 66; RESP 16; TEMP 95
[2021-10-14] MEDS: NICOTINE 14MG/24HR PATCH TRANSDERM SCH (10:04)
[2021-10-14 11:04] LABS: African American GFR (CKD) 130.3 (60.0-200.0); Anion Gap 9.3 mmol/L (4.00-12.00); Calcium 8.3 mg/dL (8.7-10.3); Carbon Dioxide 21.7 mmol/L (21.6-31.8); Non-African American GFR(CKD) 112.4 (60.0-200.0)
[2021-10-14 11:06] LABS: HCT 32.9 % (37.2-46.3); HGB 10.6 g/dL (12.0-15.0); MCH 32.4 pg (27.0-32.0); MCHC 32.2 g/dL (32.0-37.0); MCV 100.6 fL (80.0-97.0); Platelet Count 249 X 10*3/uL (140-440); RBC 3.27 X 10*6/uL (4.10-5.20); RDW 11.9 % (11.5-14.5); WBC 6.56 X 10*3/uL (4.50-10.00)
[2021-10-14 13:09] LABS: Basophils # (A) 0.02 X 10*3/uL (0.00-0.10); Basophils % (A) 0.3 %; Eosinophils # (A) 0.07 X 10*3/uL (0.04-0.35); Eosinophils % (A) 1.1 %; Lymphocytes # (A) 4.13 X 10*3/uL (0.90-5.00); Monocytes # (A) 0.44 X 10*3/uL (0.20-1.00); Monocytes % (A) 6.7 %; Neutrophils # (A) 1.89 X 10*3/uL (1.80-7.70); Neutrophils % (A) 28.7 %
--- NOTE | 2021-10-14 19:49 | DS ---
DISCHARGE SUMMARY DATE OF SERVICE: 10/14/2021 FINAL DIAGNOSES: 1. Acute abdominal pain and vomiting with possible acute gastroparesis, acute exacerbation. 2. Acute gastritis. 3. Increased platelets. 4. Dehydration with elevated BUN, present on admission. 5. Elevated calcium secondary to dehydration. 6. Abnormal urine, possibly dehydration. 7. Gastroesophageal reflux disease. 8. Hypertension. 9. History of renal failure previously. 10.History of esophageal tears. 11.History of low back pain, degenerative joint disease. 12.History of pyelonephritis. 13.History of appendectomy. 14.History of Botox injections. 15.History of anxiety, bipolar, depression. 16.History of ongoing nicotine dependence. 17.History of THC. 18.FULL CODE. DISCHARGE DISPOSITION: The patient will be discharged in stable condition with guarded prognosis. HISTORY OF PRESENT ILLNESS: This 41-year-old woman with a past medical history of multiple medical problems, being followed by Dr. Bui in the outpatient setting, was admitted with incessant vomiting, intractable vomiting with failure of outpatient treatment as well as acute gastroparesis, acute exacerbation. She was treated symptomatically. The patient improved significantly. Dr. Bui is planning a [facility] referral also at this time. The patient is able to tolerate the feeds at this time. On exam, vitals are stable. CARDIOVASCULAR: S1, S2 muffled. Abdomen soft. NERVOUS SYSTEM: No focal deficit. DISCHARGE ADVICE AND MEDICATIONS: 1. Diet is cardiac. 2. Activity limited until followup. 3. Follow up with Dr. Bui. 4. Follow up at the [facility] as recommended. 5. Hydrocodone as before. 6. Zofran 8 mg p.o. b.i.d. p.r.n. 7. Protonix 40 mg p.o. b.i.d. Once again, the patient will be discharged in stable condition with guarded prognosis. MMODL / IJN: [id number] /
== END 2021-10-14 11:50 | disposition home or self-care (01) ==
LOC: EC 08:24 → 6NMEDSUR 13:28
PROVIDERS: ADMIT Hospitalist; ATTEND Hospitalist
DX: K31.84 Gastroparesis (principal); K29.00 Acute gastritis without bleeding; E86.0 Dehydration; E78.5 Hyperlipidemia, unspecified; R82.90 Unspecified abnormal findings in urine; R94.4 Abnormal results of kidney function studies; I10 Essential (primary) hypertension; K21.9 Gastro-esophageal reflux disease without esophagitis; Z20.822 Contact with and (suspected) exposure to COVID-19; F17.200 Nicotine dependence, unspecified, uncomplicated; M19.90 Unspecified osteoarthritis, unspecified site; M25.511 Pain in right shoulder; F31.9 Bipolar disorder, unspecified; F41.9 Anxiety disorder, unspecified; M77.9 Enthesopathy, unspecified; Z79.899 Other long term (current) drug therapy; Z88.2 Allergy status to sulfonamides; Z90.49 Acquired absence of other specified parts of digestive tract; Z86.69 Personal history of other diseases of the nervous system and sense organs; Z80.3 Family history of malignant neoplasm of breast; Z81.1 Family history of alcohol abuse and dependence
CPT/HCPCS: 99285; 96376 ×4; 96361 ×3; 96372 ×2; 96375 ×2; 96374; 36415; 93005; 80053 ×2; 80048; 82150; 83690; 83735; 85025 ×3; 81001; 81025; 80306; 87635; 71046; G0378 ×3; S4990; J2270; J1200; J2765; J2405 ×3; C9113 ×3; J1170 ×3; J1644 ×2

== ENCOUNTER 2021-11-15 00:08 | Observation (INO) | payer MEDICARE ==
[2021-11-15] MEDS ORDERED: SODIUM CHLORIDE 0.9% 1,000 ML IV STA ×2 (03:15)
[2021-11-15] MEDS ORDERED: PANTOPRAZOLE 40 MG/10 ML VIAL IVP STA (03:15)
[2021-11-15] MEDS ORDERED: LORazepam 2 MG/ML INJ IV STA (03:15)
[2021-11-15] MEDS ORDERED: ONDANSETRON 4 MG/2 ML VIAL IVP STA (03:15)
[2021-11-15] MEDS ORDERED: SODIUM CHLORIDE 0.9% 500 ML 500 ML IV STA (03:15)
--- NOTE | 2021-11-15 03:16 | ED ---
Nausea/Vomiting/Diarrhea HPI - General Chief complaint: Nausea/Vomiting/Diarrhea Stated complaint: Abd Pain Time Seen by Provider: 11/15/21 01:23 Source: patient, RN notes reviewed, old records reviewed Mode of arrival: ambulatory Limitations: no limitations - History of Present Illness Initial comments: This is a 41-year-old female DF for evaluation patient is known to our facility for evaluation of cyclic vomiting syndrome patient coming up persistent nausea vomiting abdominal pain. Severe. Shaking with tremors and rigors. Patient denies recent travel history or sick contacts no fevers. She believes she may be mildly constipated as well. MD complaint: nausea, vomiting, abdominal pain -: days(s) Description of Vomiting: food contents Associated Abdominal Pain: Yes Location: diffuse, periumbilical Radiation: none Severity: moderate Severity scale (1-10): 7 Quality: stabbing, aching Consistency: intermittent Improves with: none Worsens with: none Context: other (History of similar) Associated Symptoms: myalgias, diaphoresis, loss of appetite, nausea/vomiting - Related Data Home Medications Medication Instructions Recorded Confirmed Ondansetron Odt [Zofran ODT] 8 mg PO BID 10/23/20 10/12/21 HYDROcodone/APAP 10-325MG [[place] 0.5 - 1 tab PO DAILY PRN 07/05/21 10/12/21 10-325] Previous Rx's Medication Instructions Recorded Pantoprazole Sodium [Protonix] 40 mg PO BID #60 08/12/21 Allergies Allergy/AdvReac Type Severity Reaction Status Date / Time sulfamethoxazole Allergy Rash/Hives Verified 11/15/21 00:14 [From Bactrim] trimethoprim [From Bactrim] Allergy Rash/Hives Verified 11/15/21 00:14 Review of Systems ROS Statement: Those systems with pertinent positive or pertinent negative responses have been documented in the HPI. ROS Other: All systems not noted in ROS Statement are negative. Past Medical History Past Medical History: GERD/Reflux, Hyperlipidemia, Renal Disease Additional Past Medical History / Comment(s): Gastroparesis, gastritis, esophageal tears, chronic low back pain, herniated lower discs, bilateral wrist tendonitis with R side worse, R shoulder pain past couple months, numbness to bilateral hand fingers when first wakes, migraines, instructed to sleep with HOB up 6 inches d/t heart rate dropping with sleep, vertigo, pyelonephritis, History of Any Multi-Drug Resistant Organisms: None Reported Past Surgical History: Appendectomy, Tubal Ligation Additional Past Surgical History / Comment(s): Botox injection "mouth" of st [place]-R/T SPASMS , EGDs, colonoscopy, vaginal cyst drained. Past Anesthesia/Blood Transfusion Reactions: No Reported Reaction Additional Past Anesthesia/Blood Transfusion Reaction / Comment(s): Never had blood transfusion. Past Psychological History: Anxiety, Bipolar, Depression Smoking Status: Current every day smoker Past Alcohol Use History: None Reported Past Drug Use History: Marijuana - Past Family History Mother Family Medical History: Cancer Additional Family Medical History / Comment(s): Mother is living. She has had breast cancer and 2 back surgeries. Father Family Medical History: No Reported History Additional Family Medical History / Comment(s): Father had ETOH abuse and was manic depressive. He after a fall where he fractured his back then "drank" himself to . Brother(s) Family Medical History: Neurologic Disorder Sister(s) Family Medical History: No Reported History Son(s) Family Medical History: No Reported History Daughter(s) Family Medical History: No Reported History General Exam Limitations: no limitations General appearance: alert, in no apparent distress, anxious Head exam: Present: atraumatic, normocephalic, normal inspection Eye exam: Present: normal appearance, PERRL, EOMI. Absent: scleral icterus, conjunctival injection, periorbital swelling ENT exam: Present: normal exam, mucous membranes moist Neck exam: Present: normal inspection. Absent: tenderness, meningismus, lymphadenopathy Respiratory exam: Present: normal lung sounds bilaterally. Absent: respiratory distress, wheezes, rales, rhonchi, stridor Cardiovascular Exam: Present: normal rhythm, tachycardia, normal heart sounds. Absent: systolic murmur, diastolic murmur, rubs, gallop, clicks GI/Abdominal exam: Present: soft, normal bowel sounds. Absent: distended, tenderness, guarding, rebound, rigid Extremities exam: Present: normal inspection, full ROM, normal capillary refill. Absent: tenderness, pedal edema, joint swelling, calf tenderness Back exam: Present: normal inspection Neurological exam: Present: alert, oriented X3, CN II-XII intact Psychiatric exam: Present: normal affect, normal mood Skin exam: Present: warm, dry, intact, normal color. Absent: rash Course Vital Signs 11/15/21 11/15/21 00:12 04:04 Temperature 98.7 F Pulse Rate 104 H 86 Respiratory 18 20 Rate Blood Pressure 140/80 O2 Sat by Pulse 98 97 Oximetry - Reevaluation(s) Reevaluation #1: 11/15/21 05:02 Medical record is reviewed Reevaluation #2: 11/15/21 05:02 Patient's pain is improved but then did recur with significant nausea and vomiting Reevaluation #3: 11/15/21 05:02 Patient informed results and questions answered Reevaluation #4: 11/15/21 05:02 Patient does not fill comfortable with discharge - Consultations Consultation #1: Spoke with [facility]H were agreeable admit this patient Medical Decision Making - Medical Decision Making 41 female slightly vomiting syndrome will be admitted for symptom therapy, hydration, resuscitation and pain control - Radiology Data Radiology results: report reviewed (X-ray KUB negative for acute disease), image reviewed Disposition Clinical Impression: Abdominal pain, Dehydration, Gastroparesis, Intractable nausea and vomiting Disposition: ADMITTED IP TO THIS [facility] Condition: Fair Is patient prescribed a controlled substance at d/c from ED?: No Referrals: Jewell Bui MD [Primary Care Provider] - 1-2 days
[2021-11-15] MEDS ORDERED: HYDROmorphone 1 MG/ML 1 ML SYRINGE IVP STA (04:38)
[2021-11-15] MEDS ORDERED: HYDROmorphone 1 MG/ML 1 ML SYRINGE IVP PRN (04:59)
[2021-11-15] MEDS ORDERED: LORazepam 2 MG/ML INJ IV PRN (04:59)
[2021-11-15] MEDS ORDERED: NALOXONE 0.4 MG/ML 1 ML VIAL IV PRN (04:59)
[2021-11-15] MEDS ORDERED: ONDANSETRON 4 MG/2 ML VIAL IVP PRN (04:59)
[2021-11-15 05:01] LABS: Basophils % (A) 0 %; Eosinophils # (A) 0.1 k/uL (0-0.7); Eosinophils % (A) 1 %; HCT 44.7 % (34.0-46.0); HGB 14.8 gm/dL (11.4-16.0); Lymphocytes # (A) 0.8 k/uL (1.0-4.8); Lymphocytes % (A) 5 %; MCHC 33.2 g/dL (31.0-37.0); MCV 99.6 fL (80.0-100.0); Monocytes # (A) 0.5 k/uL (0-1.0); Monocytes % (A) 3 %; Neutrophils # (A) 12.5 k/uL (1.3-7.7); Neutrophils % (A) 90 %; Platelet Count 478 k/uL (150-450); RBC 4.48 m/uL (3.80-5.40); RDW 12.2 % (11.5-15.5); WBC 13.9 k/uL (3.8-10.6)
[2021-11-15 05:23] LABS: Albumin 5.4 g/dL (3.5-5.0); Calcium 10.5 mg/dL (8.4-10.2); Total Bilirubin 0.9 mg/dL (0.2-1.3); Total Protein 9.5 g/dL (6.3-8.2)
[2021-11-15 05:34] LABS: Potassium 5.1 mmol/L (3.5-5.1)
[2021-11-15] MEDS: SODIUM CHLORIDE 0.9% 1,000 ML IV SCH ×2 (06:31→13:41)
[2021-11-15 07:42] VITALS: BP 146/84; PULSE 93; RESP 18; TEMP 98
[2021-11-15] MEDS ORDERED: PANTOPRAZOLE 40 MG/10 ML VIAL IV SCH (09:00)
[2021-11-15] MEDS ORDERED: traMADol 50 MG TAB PO PRN (10:34)
--- NOTE | 2021-11-15 10:45 | P.HPIM ---
History of Present Illness 41-year-old female came in with intractable nausea vomiting going on for last couple days. Patient does have history of cyclical vomiting syndrome although patient smokes marijuana patient was asked to quit but continues to smoke m vee continues to smoke cigarettes. Patient denied any fever chills patient has 4/10 epigastric abdominal discomfort denied any fever chills. REVIEW OF SYSTEMS: CONSTITUTIONAL: No fever, no malaise, no fatigue. HEENT: No recent visual problems or hearing problems. Denied any sore throat. CARDIOVASCULAR: No chest pain, orthopnea, PND, no palpitations, no syncope. PULMONARY: No shortness of breath, no cough, no hemoptysis. GASTROINTESTINAL: No diarrhea, no nausea, no vomiting, no abdominal pain. NEUROLOGICAL: No headaches, no weakness, no numbness. HEMATOLOGICAL: Denies any bleeding or petechiae. GENITOURINARY: Denies any burning micturition, frequency, or urgency. MUSCULOSKELETAL/RHEUMATOLOGICAL: Denies any joint pain, swelling, or any muscle pain. ENDOCRINE: Denies any polyuria or polydipsia. The rest of the 14-point review of systems is negative. PHYSICAL EXAMINATION: GENERAL: The patient is alert and oriented x3, not in any acute distress. Well developed, well nourished. HEENT: Pupils are round and equally reacting to light. EOMI. No scleral icterus. No conjunctival pallor. Normocephalic, atraumatic. No pharyngeal erythema. No thyromegaly. CARDIOVASCULAR: S1 and S2 present. No murmurs, rubs, or gallops. PULMONARY: Chest is clear to auscultation, no wheezing or crackles. ABDOMEN: Soft, nontender, nondistended, normoactive bowel sounds. No palpable organomegaly. MUSCULOSKELETAL: No joint swelling or deformity. EXTREMITIES: No cyanosis, clubbing, or pedal edema. NEUROLOGICAL: Gross neurological examination did not reveal any focal deficits. SKIN: No rashes. Assessment and plan 1 cyclical vomiting syndrome patient has intractable nausea vomiting presently doesn't have any nausea vomiting or vomiting patient will be started on clear liquid diet and if she can tolerate the diet patient will be discharged patient will stay liquid diet at home. Recommended to quit marijuana. -GERD -Non-anion gap metabolic acidosis and anion gap metabolic acidosis secondary to hyperchloremia and lactic acidosis and lactic acidosis secondary to dehydration, Patient received IV fluids overnight -Hypercalcemia secondary to intravascular depletion from nausea vomiting -Leukocytosis reactive seconded to nausea vomiting. DVT prophylaxis: ambulation Past Medical History Past Medical History: GERD/Reflux, Hyperlipidemia, Renal Disease Additional Past Medical History / Comment(s): Gastroparesis, gastritis, esophageal tears, chronic low back pain, herniated lower discs, bilateral wrist tendonitis with R side worse, R shoulder pain past couple months, numbness to bilateral hand fingers when first wakes, migraines, instructed to sleep with HOB up 6 inches d/t heart rate dropping with sleep, vertigo, pyelonephritis, History of Any Multi-Drug Resistant Organisms: None Reported Past Surgical History: Appendectomy, Tubal Ligation Additional Past Surgical History / Comment(s): Botox injection "mouth" of stomac h-R/T SPASMS , EGDs, colonoscopy, vaginal cyst drained. Past Anesthesia/Blood Transfusion Reactions: No Reported Reaction Additional Past Anesthesia/Blood Transfusion Reaction / Comment(s): Never had blood transfusion. Past Psychological History: Anxiety, Bipolar, Depression Additional Psychological History / Comment(s): Pt resides with spouse and 3 children. She is independent. Smoking Status: Current every day smoker Past Alcohol Use History: None Reported Additional Past Alcohol Use History / Comment(s): Pt. started smoking in 1992 and smokes sometimes 1 PPD on a bad day. Has had 1 cigarette in last 3 days per patient. Past Drug Use History: Marijuana Additional Drug Use History / Comment(s): Patient states occasionally smokes marijuana - Past Family History Mother Family Medical History: Cancer Additional Family Medical History / Comment(s): Mother is living. She has had breast cancer and 2 back surgeries. Father Family Medical History: No Reported History Additional Family Medical History / Comment(s): Father had ETOH abuse and was manic depressive. He after a fall where he fractured his back then "drank" himself to . Brother(s) Family Medical History: Neurologic Disorder Sister(s) Family Medical History: No Reported History Son(s) Family Medical History: No Reported History Daughter(s) Family Medical History: No Reported History Medications and Allergies Home Medications Medication Instructions Recorded Confirmed Type HYDROcodone/APAP 10-325MG [[place] 0.5 - 1 tab PO DAILY PRN 07/05/21 11/15/21 History 10-325] Pantoprazole Sodium [Protonix] 40 mg PO BID #60 08/12/21 11/15/21 Rx Ondansetron Odt [Zofran Odt] 4 mg PO Q12HR PRN 11/15/21 11/15/21 History Allergies Allergy/AdvReac Type Severity Reaction Status Date / Time sulfamethoxazole Allergy Rash/Hives Verified 11/15/21 08:11 [From Bactrim] trimethoprim [From Bactrim] Allergy Rash/Hives Verified 11/15/21 08:11 Physical Exam Vitals: Vital Signs Temp Pulse Pulse Resp BP BP Pulse Ox 11/15/21 08:00 93 18 11/15/21 07:34 98.0 F 93 18 146/84 95 11/15/21 06:28 84 20 114/74 100 11/15/21 04:04 86 20 97 11/15/21 00:12 98.7 F 104 H 18 140/80 98 Intake and Output 11/14/21 11/15/21 11/15/21 22:59 06:59 14:59 Other: Voiding Method Toilet Weight 72.575 kg 72.575 kg Results CBC & Chem 7: 11/15/21 04:22 11/15/21 04:22 Labs: Abnormal Lab Results - Last 24 Hours (Table) 11/15/21 11/15/21 11/15/21 Range/Units 04:22 04:22 04:22 WBC 13.9 H (3.8-10.6) k/uL Plt Count 478 H (150-450) k/uL Neutrophils # 12.5 H (1.3-7.7) k/uL Lymphocytes # 0.8 L (1.0-4.8) k/uL Carbon Dioxide 17 L (22-30) mmol/L BUN 20 H (7-17) mg/dL Glucose 168 H (74-99) mg/dL Plasma Lactic Acid Jose 4.2 H* (0.7-2.0) mmol/L Calcium 10.5 H (8.4-10.2) mg/dL Total Protein 9.5 H (6.3-8.2) g/dL Albumin 5.4 H (3.5-5.0) g/dL Lipase 22 L (23-300) U/L Thrombosis Risk Factor Assmnt - Choose All That Apply Any of the Below Risk Factors Present?: Yes Each Factor Represents 1 point: Age 41-60 years Other Risk Factors: No Other congenital or acquired thrombophilia - If yes, enter type in comment: No Thrombosis Risk Factor Assessment Total Risk Factor Score: 1 Thrombosis Risk Factor Assessment Level: Low Risk
== END 2021-11-15 13:47 | disposition home or self-care (01) ==
LOC: EC 00:08 → 6NMEDSUR 04:59
PROVIDERS: ADMIT Hospitalist; ATTEND Hospitalist
DX: K31.84 Gastroparesis (principal); E87.2 Acidosis; E86.0 Dehydration; K21.9 Gastro-esophageal reflux disease without esophagitis; D72.829 Elevated white blood cell count, unspecified; E83.52 Hypercalcemia; E87.8 Other disorders of electrolyte and fluid balance, not elsewhere classified; G43.909 Migraine, unspecified, not intractable, without status migrainosus; M77.9 Enthesopathy, unspecified; M25.511 Pain in right shoulder; R20.0 Anesthesia of skin; E86.9 Volume depletion, unspecified; F31.9 Bipolar disorder, unspecified; F41.9 Anxiety disorder, unspecified; G89.29 Other chronic pain; M54.50 Low back pain, unspecified; F17.210 Nicotine dependence, cigarettes, uncomplicated; Z79.899 Other long term (current) drug therapy; Z88.1 Allergy status to other antibiotic agents; Z88.2 Allergy status to sulfonamides; Z98.51 Tubal ligation status; Z90.49 Acquired absence of other specified parts of digestive tract; Z98.890 Other specified postprocedural states; Z87.19 Personal history of other diseases of the digestive system; Z71.51 Drug abuse counseling and surveillance of drug abuser; Z80.3 Family history of malignant neoplasm of breast; Z81.1 Family history of alcohol abuse and dependence; Z81.8 Family history of other mental and behavioral disorders; Z82.0 Family history of epilepsy and other diseases of the nervous system
CPT/HCPCS: 96376; 96361; 96374; 96375; 99285; 36415; 80053; 82150; 83605; 83690; 85025; 87635; G0378; J2060; J2405; J1170; C9113

== ENCOUNTER 2022-02-25 04:42 | Observation (INO) | payer MEDICARE ==
[2022-02-25] MEDS ORDERED: PANTOPRAZOLE 40 MG/10 ML VIAL IVP STA (04:51)
[2022-02-25] MEDS ORDERED: ONDANSETRON 4 MG/2 ML VIAL IVP STA (04:51)
[2022-02-25] MEDS ORDERED: SODIUM CHLORIDE 0.9% 1,000 ML IV STA ×2 (04:51)
[2022-02-25] MEDS ORDERED: MORPHINE SULFATE 4 MG/ML SYRINGE IV STA (04:51)
--- NOTE | 2022-02-25 04:59 | ED ---
Nausea/Vomiting/Diarrhea HPI - General Chief complaint: Nausea/Vomiting/Diarrhea Stated complaint: Abdominal Pain,Vomiting blood Time Seen by Provider: 02/25/22 04:51 Source: patient, family, RN notes reviewed, old records reviewed Mode of arrival: ambulatory Limitations: no limitations - History of Present Illness Initial comments: This is a 41-year-old female to the emergency department for evaluation. Patient is well-known to our emergency room for evaluation regarding signs and vomiting syndrome, gastroparesis. Patient has no recent fevers but is complaining of severe abdominal pain with persistent nausea vomiting. Otherwise no family members with similar complaints and no recent travel history or sick contacts. Patient denies drug or alcohol abuse MD complaint: nausea, vomiting -: hour(s) Description of Vomiting: food contents Description of Diarrhea: water Location: diffuse Radiation: none Severity: moderate Severity scale (1-10): 4 Quality: cramping, aching Consistency: constant Improves with: none Worsens with: none Associated Symptoms: denies other symptoms - Related Data Home Medications Medication Instructions Recorded Confirmed Ondansetron Odt [Zofran Odt] 8 mg PO BID 02/25/22 02/25/22 Pantoprazole Sodium [Protonix] 40 mg PO DAILY 02/25/22 02/25/22 Allergies Allergy/AdvReac Type Severity Reaction Status Date / Time sulfamethoxazole Allergy Rash/Hives Verified 02/25/22 06:49 [From Bactrim] trimethoprim [From Bactrim] Allergy Rash/Hives Verified 02/25/22 06:49 Review of Systems ROS Statement: Those systems with pertinent positive or pertinent negative responses have been documented in the HPI. ROS Other: All systems not noted in ROS Statement are negative. Past Medical History Past Medical History: GERD/Reflux, Hyperlipidemia, Renal Disease Additional Past Medical History / Comment(s): Gastroparesis, gastritis, esophageal tears, chronic low back pain, herniated lower discs, bilateral wrist tendonitis with R side worse, R shoulder pain past couple months, numbness to bilateral hand fingers when first wakes, migraines, instructed to sleep with HOB up 6 inches d/t heart rate dropping with sleep, vertigo, pyelonephritis, History of Any Multi-Drug Resistant Organisms: None Reported Past Surgical History: Appendectomy, Tubal Ligation Additional Past Surgical History / Comment(s): Botox injection "mouth" of stomach-R/T SPASMS , EGDs, colonoscopy, vaginal cyst drained. Past Anesthesia/Blood Transfusion Reactions: No Reported Reaction Additional Past Anesthesia/Blood Transfusion Reaction / Comment(s): Never had blood transfusion. Past Psychological History: Anxiety, Bipolar, Depression Smoking Status: Current every day smoker Past Alcohol Use History: None Reported Past Drug Use History: Marijuana - Past Family History Mother Family Medical History: Cancer Additional Family Medical History / Comment(s): Mother is living. She has had breast cancer and 2 back surgeries. Father Family Medical History: No Reported History Additional Family Medical History / Comment(s): Father had ETOH abuse and was manic depressive. He after a fall where he fractured his back then "drank" himself to . Brother(s) Family Medical History: Neurologic Disorder Sister(s) Family Medical History: No Reported History Son(s) Family Medical History: No Reported History Daughter(s) Family Medical History: No Reported History General Exam Limitations: no limitations General appearance: alert, in no apparent distress Head exam: Present: atraumatic, normocephalic, normal inspection Eye exam: Present: normal appearance, PERRL, EOMI. Absent: scleral icterus, conjunctival injection, periorbital swelling ENT exam: Present: normal exam, mucous membranes moist Neck exam: Present: normal inspection. Absent: tenderness, meningismus, lymphadenopathy Respiratory exam: Present: normal lung sounds bilaterally. Absent: respiratory distress, wheezes, rales, rhonchi, stridor Cardiovascular Exam: Present: regular rate, normal rhythm, normal heart sounds. Absent: systolic murmur, diastolic murmur, rubs, gallop, clicks GI/Abdominal exam: Present: soft, normal bowel sounds. Absent: distended, tenderness, guarding, rebound, rigid Extremities exam: Present: normal inspection, full ROM, normal capillary refill. Absent: tenderness, pedal edema, joint swelling, calf tenderness Back exam: Present: normal inspection Neurological exam: Present: alert, oriented X3, CN II-XII intact Psychiatric exam: Present: normal affect, normal mood Skin exam: Present: warm, dry, intact, normal color. Absent: rash Course Vital Signs 02/25/22 02/25/22 02/25/22 04:44 06:47 07:31 Temperature 97.6 F 97.8 F Pulse Rate 99 83 61 Pulse Rate [ Pulse Oximetery ] Respiratory 18 16 16 Rate Blood Pressure 148/89 138/87 123/71 Blood Pressure [Right Arm] O2 Sat by Pulse 97 94 L 100 Oximetry 02/25/22 02/25/22 02/25/22 10:51 12:52 16:00 Temperature 98 F 97.6 F 98.7 F Pulse Rate 63 Pulse Rate [ 70 Pulse Oximetery ] Respiratory 16 18 18 Rate Blood Pressure 111/67 Blood Pressure 107/61 113/70 [Right Arm] O2 Sat by Pulse 96 93 L 97 Oximetry 02/25/22 21:34 Temperature Pulse Rate 72 Pulse Rate [ Pulse Oximetery ] Respiratory 16 Rate Blood Pressure 126/71 Blood Pressure [Right Arm] O2 Sat by Pulse 95 Oximetry - Reevaluation(s) Reevaluation #1: 02/25/22 06:15 medical record is reviewed Reevaluation #2: 02/25/22 06:15 Patient has no improvement in symptoms here in the ER is persistently vomiting Reevaluation #3: 02/25/22 06:15 Patient informed of results and questions answered - Consultations Consultation #1: Spoke with sound who is agreeable to admission Medical Decision Making - Medical Decision Making 41 female to the ER for evaluation. Patient presents today for evaluation regards to nausea vomiting severe cyclic vomiting syndrome and abdominal pain. Patient be admitted for symptomatic treatment - Lab Data Result diagrams: 02/25/22 05:03 02/25/22 05:03 Lab Results 02/25/22 02/25/22 Range/Units 05:03 05:03 WBC 16.8 H (3.8-10.6) k/uL RBC 4.45 (3.80-5.40) m/uL Hgb 14.6 (11.4-16.0) gm/dL Hct 43.6 (34.0-46.0) % MCV 98.0 (80.0-100.0) fL MCH 32.8 (25.0-35.0) pg MCHC 33.5 (31.0-37.0) g/dL RDW 12.0 (11.5-15.5) % Plt Count 515 H (150-450) k/uL MPV 7.9 Neutrophils % 86 % Lymphocytes % 9 % Monocytes % 3 % Eosinophils % 1 % Basophils % 0 % Neutrophils # 14.5 H (1.3-7.7) k/uL Lymphocytes # 1.5 (1.0-4.8) k/uL Monocytes # 0.5 (0-1.0) k/uL Eosinophils # 0.2 (0-0.7) k/uL Basophils # 0.1 (0-0.2) k/uL Sodium 141 (137-145) mmol/L Potassium 3.8 (3.5-5.1) mmol/L Chloride 101 (98-107) mmol/L Carbon Dioxide 26 (22-30) mmol/L Anion Gap 14 mmol/L BUN 12 (7-17) mg/dL Creatinine 0.82 (0.52-1.04) mg/dL Est GFR (CKD-EPI)AfAm >90 (>60 ml/min/1.73 sqM) Est GFR (CKD-EPI)NonAf 89 (>60 ml/min/1.73 sqM) Glucose 197 H (74-99) mg/dL Calcium 10.2 (8.4-10.2) mg/dL Total Bilirubin 0.9 (0.2-1.3) mg/dL AST 24 (14-36) U/L ALT 21 (4-34) U/L Alkaline Phosphatase 98 (38-126) U/L Total Protein 8.9 H (6.3-8.2) g/dL Albumin 5.2 H (3.5-5.0) g/dL Amylase 74 (30-110) U/L Lipase 32 (23-300) U/L - Radiology Data Radiology results: report reviewed (XR kub is negative for acute disaese), image reviewed Disposition Clinical Impression: Nausea and vomiting, Abdominal pain, Intractable nausea and vomiting Disposition: ADMITTED IP TO THIS [facility] Condition: Fair Is patient prescribed a controlled substance at d/c from ED?: No Time of Disposition: 06:22
[2022-02-25] MEDS ORDERED: diphenhydrAMINE 50 MG/ML 1 ML VIAL IVP STA (05:05)
--- NOTE | 2022-02-25 05:13 | XR ---
EXAMINATION TYPE: XR KUB DATE OF EXAM: 02/25/2022 COMPARISON: 08/09/2021 HISTORY: Abdominal pain TECHNIQUE: 2 views FINDINGS: Bowel gas pattern is normal. There is no sign of intestinal obstruction or pneumoperitoneum . Fecal pattern is normal. Lung bases are clear. There is no evidence of a mass. There are no patholo gic calcifications over the kidneys. IMPRESSION: Nonacute abdomen. No adverse change.
[2022-02-25 05:25] LABS: ALT 21 U/L (4-34); AST 24 U/L (14-36); African American GFR (CKD) >90 (>60 ml/min/1.73 sqM); Albumin 5.2 g/dL (3.5-5.0); Alkaline Phosphatase 98 U/L (38-126); Amylase 74 U/L (30-110); Anion Gap 14 mmol/L; Basophils # (A) 0.1 k/uL (0-0.2); Basophils % (A) 0 %; Blood Urea Nitrogen 12 mg/dL (7-17); Calcium 10.2 mg/dL (8.4-10.2); Carbon Dioxide 26 mmol/L (22-30); Chloride 101 mmol/L (98-107); Eosinophils # (A) 0.2 k/uL (0-0.7); Eosinophils % (A) 1 %; Glucose 197 mg/dL (74-99); HCT 43.6 % (34.0-46.0); HGB 14.6 gm/dL (11.4-16.0); Lipase 32 U/L (23-300); Lymphocytes # (A) 1.5 k/uL (1.0-4.8); Lymphocytes % (A) 9 %; MCH 32.8 pg (25.0-35.0); MCHC 33.5 g/dL (31.0-37.0); Mean Platelet Volume 7.9; Monocytes # (A) 0.5 k/uL (0-1.0); Monocytes % (A) 3 %; Neutrophils # (A) 14.5 k/uL (1.3-7.7); Neutrophils % (A) 86 %; Non-African American GFR(CKD) 89 (>60 ml/min/1.73 sqM); Platelet Count 515 k/uL (150-450); Potassium 3.8 mmol/L (3.5-5.1); RBC 4.45 m/uL (3.80-5.40); Sodium 141 mmol/L (137-145); Total Bilirubin 0.9 mg/dL (0.2-1.3); Total Protein 8.9 g/dL (6.3-8.2); WBC 16.8 k/uL (3.8-10.6)
[2022-02-25] MEDS ORDERED: NALOXONE 0.4 MG/ML 1 ML VIAL IV PRN (06:21)
[2022-02-25] MEDS ORDERED: LORazepam 2 MG/ML INJ IV PRN (06:21)
[2022-02-25] MEDS ORDERED: HYDROmorphone 1 MG/ML 1 ML SYRINGE IVP STA (06:22)
[2022-02-25] MEDS ORDERED: PROCHLORPERAZINE INJ 10 MG/2 ML VIAL IVP STA (06:22)
[2022-02-25] MEDS ORDERED: PROCHLORPERAZINE INJ 10 MG/2 ML VIAL IVP PRN (06:22)
[2022-02-25] MEDS: SODIUM CHLORIDE 0.9% 1,000 ML IV SCH ×3 (06:46→22:53)
[2022-02-25] MEDS ORDERED: PANTOPRAZOLE 40 MG/10 ML VIAL IV SCH (09:00)
[2022-02-25] MEDS: HYDROmorphone 1 MG/ML 1 ML SYRINGE IVP PRN ×3 (10:50→22:47)
[2022-02-25] MEDS: ONDANSETRON 4 MG/2 ML VIAL IVP PRN ×2 (10:50→18:06)
[2022-02-25 14:41] LABS: Appearance,Urine Clear (Clear); Bilirubin,Urine Negative (Negative); Blood,Urine Negative (Negative); Color,Urine Yellow; Glucose,Urine (UA) Trace (Negative); Ketones,Urine Trace (Negative); Leukocyte Esterase,Urine Negative (Negative); Mucus,Urine Many /hpf; Nitrite,Urine Negative (Negative); PH, Urine 7.5 (5.0-8.0); Protein,Urine 1+ (Negative); RBC,Urine 16 /hpf (0-5); Specific Gravity,Urine 1.033 (1.001-1.035); Squamous Epithelial Cell,Urine 6 /hpf (0-4); Urobilinogen,Urine <2.0 mg/dL (<2.0); WBC,Urine 1 /hpf (0-5)
[2022-02-25] MEDS ORDERED: MAG HYDROX/AL HYDROX/SIMETH 30 ML, HYOSCYAMINE ELIXIR 10 ML, LIDOCAINE VISCOUS 2% 10 ML PO ONE ×3 (17:27)
--- NOTE | 2022-02-25 17:57 | P.HPIM ---
History of Present Illness H&P Date: 02/25/22 History of Presenting Illness: Patient is a very pleasant 41-year-old female with a past medical history of GERD, anxiety, bipolar disorder, marijuana use, nicotine dependence, and gastroparesis. She presented to the emergency department with a chief complaint of abdominal pain, nausea, and vomiting. Patient reports this all began yesterday evening around 4 PM when she began to develop significant heartburn and reflux. Patient states this continued with severe heartburn and reflux for 3 hours before she started vomiting and once she started vomiting she has not stopped. Patient reports vomiting every hour on the hour and developing left lower quadrant abdominal pain. Patient states prior to this she has had normal bowel function. Patient reports taking oral Zofran at home with no relief so she came to the ER for further evaluation. She reports having an episode of dark-colored vomit as well as an episode of blood-streaked vomit. Patient has had episodes of emesis with bile and dry heaves since arrival with no noted episodes of coffee-ground emesis or hematemesis since arrival to facility. She denies having any fevers, chills, diaphoresis, headache, lightheadedness, dizziness, chest pain, palpitations, shortness of breath, or any other complaints at this time. Patient does report having previous endoscopy and colonoscopy with Dr. Flores, states history of a and esophageal tear but otherwise denies having known cause of previous episodes of gastroparesis. Patient does report cannabis use. In the emergency department patient underwent full evaluation. CBC revealed leukocytosis with WBC count of 16.8 and thrombocytosis with platelet count of 515. CMP was unremarkable and urinalysis negative for infection. A KUB was completed negative for acute intra-abdominal process showing nonacute abdomen. Secondary to persistent nausea patient was admitted under our services for observation. Review of systems: Pertinent positives and negatives as discussed in HPI, a complete review of systems was performed and all other systems are negative. Physical exam: Vital signs reviewed and stable. General: Nontoxic, no distress and appears stated age. Derm: Skin warm and dry, normal coloration for ethnicity. Head: Atraumatic, normocephalic and symmetric. Eyes: EOMs intact, no lid lag, and anicteric sclera Mouth: no lip lesions, mucus membranes moist Cardiovascular: regular rate and rhythm with normal S1S2, no murmur, positive posterior tibial pulses bilaterally, and cap refill < 2 seconds. Lungs: Respirations even, regular, and unlabored on room air. Lungs CTA bilaterally, no rhonchi, no rales, no wheezing, and no accessory muscle usage. Abdominal: soft, slight tenderness upon palpation of left lower quadrant, no guarding, no appreciable organomegaly Ext: ROM intact. No gross muscle atrophy, no edema, no contractures Neuro: Speech clear, face symmetrical and CN II-XII grossly intact with no noted focal neuro deficits Psych: Alert and oriented to person, place, time, and situation. Appropriate and pleasant affect. Assessment and Plan of Care: Left lower quadrant Abdominal pain accompanied by nausea and vomiting with his tory of gastroparesis Cannabis use, possibly cannabinoid hyperemesis syndrome GERD -NPO -Continued hydration with IV fluids -Protonix 40 mg twice a day -Antiemetics -Symptomatic care and pain management -If left lower quadrant abdominal pain continues, will plan on obtaining a CT abdomen and pelvis Leukocytosis Thrombocytosis -Possibly reactive. We will continue with aggressive IV hydration and repeat with a.m. labs. Nicotine dependence -Nicotine patch -Continue to encourage and educate patient on the importance of smoking cessation and the risks associated with continued use. The patient is admitted with an anticipated less than 2 midnight stay for evaluation of abdominal pain, nausea, vomiting. CODE STATUS: Full code DVT prophylaxis: Heparin Discussed with: Patient and RN Anticipated discharge date: 1-[address]: Home A total of 45 minutes was spent on the care of this complex patient more than 50% of the time was spent in counseling and care coordination. Past Medical History Past Medical History: GERD/Reflux, Hyperlipidemia, Renal Disease Additional Past Medical History / Comment(s): Gastroparesis, gastritis, esophageal tears, chronic low back pain, herniated lower discs, bilateral wrist tendonitis with R side worse, R shoulder pain past couple months, numbness to bi lateral hand fingers when first wakes, migraines, instructed to sleep with HOB up 6 inches d/t heart rate dropping with sleep, vertigo, pyelonephritis, History of Any Multi-Drug Resistant Organisms: None Reported Past Surgical History: Appendectomy, Tubal Ligation Additional Past Surgical History / Comment(s): Botox injection "mouth" of stomach-R/T SPASMS , EGDs, colonoscopy, vaginal cyst drained. Past Anesthesia/Blood Transfusion Reactions: No Reported Reaction Additional Past Anesthesia/Blood Transfusion Reaction / Comment(s): Never had blood transfusion. Past Psychological History: Anxiety, Bipolar, Depression Smoking Status: Current every day smoker Past Alcohol Use History: None Reported Past Drug Use History: Marijuana - Past Family History Mother Family Medical History: Cancer Additional Family Medical History / Comment(s): Mother is living. She has had breast cancer and 2 back surgeries. Father Family Medical History: No Reported History Additional Family Medical History / Comment(s): Father had ETOH abuse and was manic depressive. He after a fall where he fractured his back then "drank" himself to . Brother(s) Family Medical History: Neurologic Disorder Sister(s) Family Medical History: No Reported History Son(s) Family Medical History: No Reported History Daughter(s) Family Medical History: No Reported History Medications and Allergies Home Medications Medication Instructions Recorded Confirmed Type Ondansetron Odt [Zofran Odt] 8 mg PO BID 02/25/22 02/25/22 History Pantoprazole Sodium [Protonix] 40 mg PO DAILY 02/25/22 02/25/22 History Allergies Allergy/AdvReac Type Severity Reaction Status Date / Time sulfamethoxazole Allergy Rash/Hives Verified 02/25/22 06:49 [From Bactrim] trimethoprim [From Bactrim] Allergy Rash/Hives Verified 02/25/22 06:49 Physical Exam Vitals: Vital Signs Temp Pulse Resp BP Pulse Ox 02/25/22 07:31 97.8 F 61 16 123/71 100 02/25/22 06:47 83 16 138/87 94 L 02/25/22 04:44 97.6 F 99 18 148/89 97 Intake and Output 02/24/22 02/25/22 02/25/22 22:59 06:59 14:59 Other: Weight 72.575 kg Results CBC & Chem 7: 02/25/22 05:03 02/25/22 05:03 Labs: Abnormal Lab Results - Last 24 Hours (Table) 02/25/22 02/25/22 Range/Units 05:03 05:03 WBC 16.8 H (3.8-10.6) k/uL Plt Count 515 H (150-450) k/uL Neutrophils # 14.5 H (1.3-7.7) k/uL Glucose 197 H (74-99) mg/dL Total Protein 8.9 H (6.3-8.2) g/dL Albumin 5.2 H (3.5-5.0) g/dL
--- NOTE | 2022-02-25 18:03 | CT ---
EXAMINATION TYPE: CT abdomen pelvis wo con DATE OF EXAM: 02/25/2022 HISTORY: Persistent abdominal pain, LLQ region CT DLP: 587.9 mGycm. Automated Exposure Control for Dose Reduction was Utilized. TECHNIQUE: CT scan of the abdomen and pelvis is performed without oral or IV contrast. COMPARISON: CT abdomen and pelvis September 10, 2021 FINDINGS: Within the limitations of a non-contrast study, the following observations are made. LUNG BASES: New posterior left basilar atelectatic change. LIVER/GB: No significant abnormality is appreciated. PANCREAS: No significant abnormality is seen. SPLEEN: No significant abnormality is seen. ADRENALS: No significant abnormality is seen. KIDNEYS: No renal stones or hydronephrosis is present bilaterally. BOWEL: Suboptimal evaluation without enteric contrast. No suspicious small or large bowel dilatation is seen. GENITAL ORGANS: Retroflexed uterus redemonstrated. LYMPH NODES: No greater than 1cm abdominal or pelvic lymph nodes are appreciated. OSSEOUS STRUCTURES: [id number] disc space narrowing with vacuum disc phenomenon lumbosacral j unction redemonstrated. OTHER: No significant additional abnormality is seen. IMPRESSION: No suspicious new or acute finding identified. No significant change from prior CT.
[2022-02-25] MEDS: PANTOPRAZOLE 40 MG/10 ML VIAL IV SCH (21:32)
[2022-02-25] MEDS: HEPARIN SODIUM,PORCINE/PF 5,000 UNIT/0.5 ML SYRINGE SQ SCH (22:47)
[2022-02-26] MEDS: HYDROmorphone 1 MG/ML 1 ML SYRINGE IVP PRN ×2 (06:02→10:27)
[2022-02-26] MEDS: SODIUM CHLORIDE 0.9% 1,000 ML IV SCH (06:16)
[2022-02-26 07:11] VITALS: BP 121/73; PULSE 60; TEMP 98
[2022-02-26] MEDS: ONDANSETRON 4 MG/2 ML VIAL IVP PRN (07:29)
[2022-02-26] MEDS ORDERED: NICOTINE 21MG/24HR PATCH TRANSDERM SCH (09:00)
[2022-02-26] MEDS: HEPARIN SODIUM,PORCINE/PF 5,000 UNIT/0.5 ML SYRINGE SQ SCH (09:56)
[2022-02-26 10:13] VITALS: RESP 22
[2022-02-26] MEDS: PANTOPRAZOLE 40 MG/10 ML VIAL IV SCH (10:26)
--- NOTE | 2022-02-26 10:27 | P.DS ---
Providers Date of admission: 02/25/22 06:21 Expected date of discharge: 02/26/22 Attending physician: Ronal Catalan MD Primary care physician: Ramya Corcoran [facility] Course: Discharge Diagnosis: Cannabinoid hyperemesis syndrome, patient was strongly educated on the importance of cessation of cannabis use. Abdominal pain, nausea, vomiting with history of gastroparesis. Resolved. Leukocytosis, likely reactive secondary to dehydration. Thrombocytosis, likely reactive secondary to dehydration. Nicotine dependence Hospital Course: Patient is a very pleasant 41-year-old female with a past medical history of GERD, anxiety, bipolar disorder, marijuana use, nicotine dependence, and gastroparesis. She presented to the emergency department with a chief complaint of abdominal pain, nausea, and vomiting. Patient reports this all began yesterday evening around 4 PM when she began to develop significant heartburn and reflux. Patient states this continued with severe heartburn and reflux for 3 hours before she started vomiting and once she started vomiting she has not stopped. Patient reports vomiting every hour on the hour and developing left lower quadrant abdominal pain. Patient states prior to this she has had normal bowel function. Patient reports taking oral Zofran at home with no relief so she came to the ER for further evaluation. She reports having an episode of dark-colored vomit as well as an episode of blood-streaked vomit. Patient has had episodes of emesis with bile and dry heaves since arrival with no noted e pisodes of coffee-ground emesis or hematemesis since arrival to facility. She denies having any fevers, chills, diaphoresis, headache, lightheadedness, dizziness, chest pain, palpitations, shortness of breath, or any other complaints at this time. Patient does report having previous endoscopy and colonoscopy with Dr. Flores, states history of a and esophageal tear but otherwise denies having known cause of previous episodes of gastroparesis. Patient does report cannabis use. In the emergency department patient underwent full evaluation. CBC revealed leukocytosis with WBC count of 16.8 and t hrombocytosis with platelet count of 515. CMP was unremarkable and urinalysis negative for infection. A KUB was completed negative for acute intra-abdominal process showing nonacute abdomen. Secondary to persistent nausea patient was admitted under our services for observation. She underwent a CT abdomen and pelvis which was negative for acute intra-abdominal or intrapelvic process showing no suspicious new or acute findings. Patient received IV hydration and oral antiemetics throughout the night. Patient had no further episodes of nausea or vomiting and abdominal pain completely subsided. Discussed discharge with patient patient became very tearful states that she needs pain medications as her primary care doctor "cut her off." Patient states that she smokes marijuana to help with the pain and when she smokes marijuana she ends up with abdominal pain, nausea, and vomiting. Patient states pain medications as all that helps at this time for her chronic back pain. Patient informed no controlled substances will be prescribed at this time and patient will need to follow up with the pain management nurse practitioner. Patient educated on use of lidocaine patches, heating pads and [id number] pain medications. Patient is medically stable for discharge at this time and educated on cessation of cannabis use. Physical exam: Vital signs reviewed and stable. General: Nontoxic, no distress and appears stated age. Derm: Skin warm and dry, normal coloration for ethnicity. Head: Atraumatic, normocephalic and symmetric. Eyes: EOMs intact, no lid lag, and anicteric sclera Mouth: no lip lesions, mucus membranes moist Cardiovascular: regular rate and rhythm with normal S1S2, no murmur, positive posterior tibial pulses bilaterally, and cap refill < 2 seconds. Lungs: Respirations even, regular, and unlabored on room air. Lungs CTA bilaterally, no rhonchi, no rales, no wheezing, and no accessory muscle usage. Abdominal: soft, no tenderness upon palpation, no guarding, no appreciable organomegaly Ext: ROM intact. No gross muscle atrophy, no edema, no contractures Neuro: Speech clear, face symmetrical and CN II-XII grossly intact with no noted focal neuro deficits Psych: Alert and oriented to person, place, time, and situation. Appropriate and pleasant affect. A total of 33 minutes of time were spent preparing this complex discharge summary. Patient Condition at Discharge: Stable Plan - Discharge Summary Discharge Rx Participant: No New Discharge Prescriptions: New Prochlorperazine [Compazine] 10 mg PO Q6H PRN #40 tab PRN Reason: Nausea And Vomiting Continue Ondansetron Odt [Zofran ODT] 8 mg PO BID Changed Pantoprazole Sodium [Protonix] 40 mg PO DAILY 30 Days #30 tab Discharge Medication List Ondansetron Odt [Zofran ODT] 8 mg PO BID 02/25/22 [History] Pantoprazole Sodium [Protonix] 40 mg PO DAILY 30 Days #30 tab 02/26/22 [Rx] Prochlorperazine [Compazine] 10 mg PO Q6H PRN #40 tab 02/26/22 [Rx] Follow up Appointment(s)/Referral(s): Jewell Bui MD [Primary Care Provider] - 1-2 days Lavonne Flores MD [STAFF PHYSICIAN] - 03/31/22 12:30 pm Patient Instructions/Handouts: Acute Nausea and Vomiting (GEN), Medicinal Use of Cannabis (GEN), Abdominal Pain (GEN), Gastroparesis (DC) Activity/Diet/Wound Care/Special Instructions: Activity: As tolerated. Take breaks as needed. Diet: Heart healthy and carb consistent diet. Avoid salts, or foods with hidden salts such as canned or boxed foods and frozen dinners. Extra salt makes your heart work harder and traps the fluid in your body for longer. Special Instructions: Take all of your medications as directed and remember to keep all of your doctor's appointments and follow-up as needed. Thank you for allowing us to participate in your care, it was truly a pleasure having you for our patient!!! Discharge Disposition: HOME SELF-CARE
== END 2022-02-26 11:21 | disposition home or self-care (01) ==
LOC: EC 04:42 → 6NMEDSUR 06:21
PROVIDERS: ADMIT Internal Medicine; ATTEND Internal Medicine
DX: K92.0 Hematemesis (principal); F12.90 Cannabis use, unspecified, uncomplicated; K31.84 Gastroparesis; D72.829 Elevated white blood cell count, unspecified; D75.839 Thrombocytosis, unspecified; F17.200 Nicotine dependence, unspecified, uncomplicated; R19.7 Diarrhea, unspecified; E86.0 Dehydration; K21.9 Gastro-esophageal reflux disease without esophagitis; E78.5 Hyperlipidemia, unspecified; K29.70 Gastritis, unspecified, without bleeding; G89.29 Other chronic pain; M54.50 Low back pain, unspecified; M25.511 Pain in right shoulder; R42 Dizziness and giddiness; R20.0 Anesthesia of skin; G43.909 Migraine, unspecified, not intractable, without status migrainosus; M77.9 Enthesopathy, unspecified; F41.9 Anxiety disorder, unspecified; F31.9 Bipolar disorder, unspecified; Z79.899 Other long term (current) drug therapy; Z88.2 Allergy status to sulfonamides; Z90.49 Acquired absence of other specified parts of digestive tract; Z71.89 Other specified counseling; Z71.3 Dietary counseling and surveillance; Z71.6 Tobacco abuse counseling; Z80.3 Family history of malignant neoplasm of breast; Z81.8 Family history of other mental and behavioral disorders; Z81.1 Family history of alcohol abuse and dependence; Z82.0 Family history of epilepsy and other diseases of the nervous system
CPT/HCPCS: 96376 ×3; 96361 ×2; 96372 ×2; 96374; 96375; 99285; 36415; 80053; 82150; 83690; 85025; 81001; 74018; 74176; G0378 ×2; J2270; J1200; J0780; J2405 ×2; J1170 ×2; C9113 ×2; J1644 ×2

== ENCOUNTER 2022-03-08 22:27 | Observation (INO) | payer MEDICARE ==
[2022-03-08] MEDS ORDERED: PANTOPRAZOLE 40 MG/10 ML VIAL IVP STA (23:06)
[2022-03-08] MEDS ORDERED: ONDANSETRON 4 MG/2 ML VIAL IVP STA (23:06)
[2022-03-08] MEDS ORDERED: MORPHINE SULFATE 4 MG/ML SYRINGE IV STA (23:06)
[2022-03-08] MEDS ORDERED: SODIUM CHLORIDE 0.9% 1,000 ML IV STA (23:06)
--- NOTE | 2022-03-08 23:51 | ED ---
General Adult HPI - General Chief complaint: Nausea/Vomiting/Diarrhea Stated complaint: Chest Tightness, Difficulty Breathing, Vomiting Time Seen by Provider: 03/08/22 22:58 Source: patient, RN notes reviewed, old records reviewed Mode of arrival: wheelchair - History of Present Illness Initial comments: 41-year-old female presents with generalized abdominal pain, and vomiting. History somewhat limited in this patient who is having multiple episodes of vomiting. She denies fever. She does report some anterior chest pain associated with her vomiting. - Related Data Home Medications Medication Instructions Recorded Confirmed Ondansetron Odt [Zofran ODT] 8 mg PO BID 02/25/22 02/25/22 Previous Rx's Medication Instructions Recorded Pantoprazole Sodium [Protonix] 40 mg PO DAILY 30 Days #30 tab 02/26/22 Prochlorperazine [Compazine] 10 mg PO Q6H PRN #40 tab 02/26/22 Allergies Allergy/AdvReac Type Severity Reaction Status Date / Time sulfamethoxazole Allergy Rash/Hives Verified 03/08/22 22:48 [From Bactrim] trimethoprim [From Bactrim] Allergy Rash/Hives Verified 03/08/22 22:48 Review of Systems ROS Statement: Those systems with pertinent positive or pertinent negative responses have been documented in the HPI. ROS Other: All systems not noted in ROS Statement are negative. Past Medical History Past Medical History: GERD/Reflux, Hyperlipidemia, Renal Disease Additional Past Medical History / Comment(s): Gastroparesis, gastritis, esophageal tears, chronic low back pain, herniated lower discs, bilateral wrist tendonitis with R side worse, R shoulder pain past couple months, numbness to bilateral hand fingers when first wakes, migraines, instructed to sleep with HOB up 6 inches d/t heart rate dropping with sleep, vertigo, pyelonephritis, History of Any Multi-Drug Resistant Organisms: None Reported Past Surgical History: Appendectomy, Tubal Ligation Additional Past Surgical History / Comment(s): Botox injection "mouth" of stomach-R/T SPASMS , EGDs, colonoscopy, vaginal cyst drained. Past Anesthesia/Blood Transfusion Reactions: No Reported Reaction Additional Past Anesthesia/Blood Transfusion Reaction / Comment(s): Never had blood transfusion. Past Psychological History: Anxiety, Bipolar, Depression Smoking Status: Current every day smoker Past Alcohol Use History: None Reported Past Drug Use History: Marijuana - Past Family History Mother Family Medical History: Cancer Additional Family Medical History / Comment(s): Mother is living. She has had breast cancer and 2 back surgeries. Father Family Medical History: No Reported History Additional Family Medical History / Comment(s): Father had ETOH abuse and was manic depressive. He after a fall where he fractured his back then "drank" himself to . Brother(s) Family Medical History: Neurologic Disorder Sister(s) Family Medical History: No Reported History Son(s) Family Medical History: No Reported History Daughter(s) Family Medical History: No Reported History General Exam General appearance: alert, in distress Head exam: Present: atraumatic, normocephalic Eye exam: Present: normal appearance, PERRL ENT exam: Present: mucous membranes dry Neck exam: Present: normal inspection. Absent: tenderness, meningismus Respiratory exam: Present: normal lung sounds bilaterally. Absent: respiratory distress, wheezes Cardiovascular Exam: Present: regular rate, normal rhythm GI/Abdominal exam: Present: soft, tenderness. Absent: distended, guarding, rebound Extremities exam: Present: normal inspection, normal capillary refill. Absent: pedal edema Neurological exam: Present: alert, oriented X3, CN II-XII intact. Absent: motor sensory deficit Psychiatric exam: Present: anxious Skin exam: Present: warm, dry, intact. Absent: cyanosis, diaphoretic Course Vital Signs 03/08/22 03/08/22 03/08/22 22:45 23:07 23:59 Temperature 98.4 F Pulse Rate 90 98 91 Respiratory 19 22 22 Rate Blood Pressure 145/89 180/98 155/88 O2 Sat by Pulse 96 98 98 Oximetry EKG Findings - EKG Comments: EKG Findings:: Sinus rhythm rate of 84, SD interval 124, QRS duration 86, QTC [address] segment elevation. Medical Decision Making - Medical Decision Making 41-year-old female with abdominal pain nausea vomiting. Patient does have history of recurrent issues similar to this. She states she's been diagnosed with gastroparesis. X-rays neck negative for obstruction. She has leukocytosis likely related to vomiting of 14.9. She has a lactic acid 4.5 secondary to dehydration from persistent vomiting. She will be admitted for IV hydration and symptomatic control. Case discussed with Dr. Barajas who will admit. - Lab Data Result diagrams: 03/08/22 23:46 03/08/22 23:46 Lab Results 03/08/22 03/08/22 03/08/22 Range/Units 23:46 23:46 23:46 WBC 14.9 H (3.8-10.6) k/uL RBC 4.67 (3.80-5.40) m/uL Hgb 15.2 (11.4-16.0) gm/dL Hct 45.7 (34.0-46.0) % MCV 97.9 (80.0-100.0) fL MCH 32.5 (25.0-35.0) pg MCHC 33.3 (31.0-37.0) g/dL RDW 12.5 (11.5-15.5) % Plt Count 533 H (150-450) k/uL MPV 7.6 Neutrophils % 88 % Lymphocytes % 7 % Monocytes % 2 % Eosinophils % 1 % Basophils % 0 % Neutrophils # 13.2 H (1.3-7.7) k/uL Lymphocytes # 1.1 (1.0-4.8) k/uL Monocytes # 0.4 (0-1.0) k/uL Eosinophils # 0.2 (0-0.7) k/uL Basophils # 0.1 (0-0.2) k/uL PT 10.6 (9.0-12.0) sec INR 1.0 (<1.2) APTT 22.2 (22.0-30.0) sec Sodium 141 (137-145) mmol/L Potassium 4.3 (3.5-5.1) mmol/L Chloride 103 (98-107) mmol/L Carbon Dioxide 18 L (22-30) mmol/L Anion Gap 20 mmol/L BUN 16 (7-17) mg/dL Creatinine 0.87 (0.52-1.04) mg/dL Est GFR (CKD-EPI)AfAm >90 (>60 ml/min/1.73 sqM) Est GFR (CKD-EPI)NonAf 83 (>60 ml/min/1.73 sqM) Glucose 170 H (74-99) mg/dL Plasma Lactic Acid Jose (0.7-2.0) mmol/L Calcium 10.3 H (8.4-10.2) mg/dL Total Bilirubin 0.9 (0.2-1.3) mg/dL AST 25 (14-36) U/L ALT 27 (4-34) U/L Alkaline Phosphatase 87 (38-126) U/L Troponin I (0.000-0.034) ng/mL Total Protein 9.1 H (6.3-8.2) g/dL Albumin 5.2 H (3.5-5.0) g/dL Amylase 81 (30-110) U/L Lipase 39 (23-300) U/L 03/08/22 03/08/22 Range/Units 23:46 23:46 WBC (3.8-10.6) k/uL RBC (3.80-5.40) m/uL Hgb (11.4-16.0) gm/dL Hct (34.0-46.0) % MCV (80.0-100.0) fL MCH (25.0-35.0) pg MCHC (31.0-37.0) g/dL RDW (11.5-15.5) % Plt Count (150-450) k/uL MPV Neutrophils % % Lymphocytes % % Monocytes % % Eosinophils % % Basophils % % Neutrophils # (1.3-7.7) k/uL Lymphocytes # (1.0-4.8) k/uL Monocytes # (0-1.0) k/uL Eosinophils # (0-0.7) k/uL Basophils # (0-0.2) k/uL PT (9.0-12.0) sec INR (<1.2) APTT (22.0-30.0) sec Sodium (137-145) mmol/L Potassium (3.5-5.1) mmol/L Chloride (98-107) mmol/L Carbon Dioxide (22-30) mmol/L Anion Gap mmol/L BUN (7-17) mg/dL Creatinine (0.52-1.04) mg/dL Est GFR (CKD-EPI)AfAm (>60 ml/min/1.73 sqM) Est GFR (CKD-EPI)NonAf (>60 ml/min/1.73 sqM) Glucose (74-99) mg/dL Plasma Lactic Acid Jose 4.5 H* (0.7-2.0) mmol/L Calcium (8.4-10.2) mg/dL Total Bilirubin (0.2-1.3) mg/dL AST (14-36) U/L ALT (4-34) U/L Alkaline Phosphatase (38-126) U/L Troponin I <0.012 (0.000-0.034) ng/mL Total Protein (6.3-8.2) g/dL Albumin (3.5-5.0) g/dL Amylase (30-110) U/L Lipase (23-300) U/L Disposition Clinical Impression: Dehydration, Nausea and vomiting, Intractable nausea and vomiting Disposition: ADMITTED IP TO THIS [facility] Condition: Stable Is patient prescribed a controlled substance at d/c from ED?: No Referrals: Jewell Bui MD [Primary Care Provider] - 1-2 days Time of Disposition: 02:25
[2022-03-09 00:03] LABS: Basophils # (A) 0.1 k/uL (0-0.2); Basophils % (A) 0 %; Eosinophils # (A) 0.2 k/uL (0-0.7); Eosinophils % (A) 1 %; HCT 45.7 % (34.0-46.0); HGB 15.2 gm/dL (11.4-16.0); Lymphocytes # (A) 1.1 k/uL (1.0-4.8); Lymphocytes % (A) 7 %; MCH 32.5 pg (25.0-35.0); MCHC 33.3 g/dL (31.0-37.0); MCV 97.9 fL (80.0-100.0); Mean Platelet Volume 7.6; Monocytes # (A) 0.4 k/uL (0-1.0); Monocytes % (A) 2 %; Neutrophils # (A) 13.2 k/uL (1.3-7.7); Neutrophils % (A) 88 %; Platelet Count 533 k/uL (150-450); RBC 4.67 m/uL (3.80-5.40); RDW 12.5 % (11.5-15.5); WBC 14.9 k/uL (3.8-10.6)
[2022-03-09 00:19] LABS: AST 25 U/L (14-36); African American GFR (CKD) >90 (>60 ml/min/1.73 sqM); Albumin 5.2 g/dL (3.5-5.0); Alkaline Phosphatase 87 U/L (38-126); Amylase 81 U/L (30-110); Anion Gap 20 mmol/L; Blood Urea Nitrogen 16 mg/dL (7-17); Calcium 10.3 mg/dL (8.4-10.2); Carbon Dioxide 18 mmol/L (22-30); Chloride 103 mmol/L (98-107); Glucose 170 mg/dL (74-99); Lipase 39 U/L (23-300); Non-African American GFR(CKD) 83 (>60 ml/min/1.73 sqM); Potassium 4.3 mmol/L (3.5-5.1); Sodium 141 mmol/L (137-145); Total Bilirubin 0.9 mg/dL (0.2-1.3); Total Protein 9.1 g/dL (6.3-8.2)
[2022-03-09 00:20] LABS: Partial Thromboplastin Time 22.2 sec (22.0-30.0); Prothrombin Time 10.6 sec (9.0-12.0)
[2022-03-09 00:26] LABS: ALT 27 U/L (4-34)
--- NOTE | 2022-03-09 01:09 | XR ---
EXAMINATION TYPE: XR KUB DATE OF EXAM: 03/09/2022 COMPARISON: 02/25/2022 HISTORY: Pain TECHNIQUE: 2 views upright FINDINGS: There is no sign of intestinal obstruction or pneumoperitoneum. Fecal pattern is normal. Nery ng bases are clear. There are no pathologic calcifications. IMPRESSION: Nonacute abdomen.
[2022-03-09] MEDS ORDERED: NALOXONE 0.4 MG/ML 1 ML VIAL IV PRN (02:31)
[2022-03-09] MEDS ORDERED: MORPHINE SULFATE 4 MG/ML SYRINGE IV PRN (02:31)
[2022-03-09] MEDS: ONDANSETRON 4 MG/2 ML VIAL IVP PRN ×3 (02:49→20:07)
[2022-03-09] MEDS: SODIUM CHLORIDE 0.9% 1,000 ML IV SCH ×3 (02:52→20:07)
--- NOTE | 2022-03-09 03:53 | P.HPIM ---
History of Present Illness H&P Date: 03/09/22 Chief Complaint: Repeated nausea vomiting 42-year-old female with gastroparesis, history of esophageal tears comes into the hospital complaining of severe abdominal pain mainly periumbilical radiating to the left lower quadrant associated with diarrhea describes dark stools denies fresh blood, also having repeated nausea and vomiting with blood streaks. Denies any fevers or chills denies any chest pain or trouble breathing. Seems like patient had multiple similar episodes in the past however she claims that for the past 2-3 months she hasn't been using any marijuana and was feeling better. However she's been taking [place] until she lost her PCP and since then she's been having difficult time refilling her [place] and started coming back to the ER. She denies any recent travel she denies any unsanitary food or drink she denies any coughing or upper respiratory infection symptoms. She does report getting an EGD and colonoscopy years ago is not sure if results. She is currently feeling very tense and shaking during the interview reporting severe pain barely responding to morphine and requesting more pain medications Blood work showed lactic acidosis and elevated white count and platelets. Otherwise hemoglobin stable, mild metabolic acidosis, rest of the electrolytes and labs are okay. Abdominal x-ray showed no acute pathology CT of the abdomen and pelvis is pending Urinalysis and Urine drug screen is pending Review of Systems Pertinent positives as noted in HPI. All other systems were reviewed and are negative Past Medical History Past Medical History: GERD/Reflux, Hyperlipidemia, Renal Disease Additional Past Medical History / Comment(s): Gastroparesis, gastritis, esophageal tears, chronic low back pain, herniated lower discs, bilateral wrist tendonitis with R side worse, R shoulder pain past couple months, numbness to bilateral hand fingers when first wakes, migraines, instructed to sleep with HOB up 6 inches d/t heart rate dropping with sleep, vertigo, pyelonephritis, History of Any Multi-Drug Resistant Organisms: None Reported Past Surgical History: Appendectomy, Tubal Ligation Additional Past Surgical History / Comment(s): Botox injection "mouth" of stomach-R/T SPASMS , EGDs, colonoscopy, vaginal cyst drained. Past Anesthesia/Blood Transfusion Reactions: No Reported Reaction Additional Past Anesthesia/Blood Transfusion Reaction / Comment(s): Never had blood transfusion. Past Psychological History: Anxiety, Bipolar, Depression Smoking Status: Current every day smoker Past Alcohol Use History: None Reported Past Drug Use History: Marijuana - Past Family History Mother Family Medical History: Cancer Additional Family Medical History / Comment(s): Mother is living. She has had breast cancer and 2 back surgeries. Father Family Medical History: No Reported History Additional Family Medical History / Comment(s): Father had ETOH abuse and was manic depressive. He after a fall where he fractured his back then "drank" himself to . Brother(s) Family Medical History: Neurologic Disorder Sister(s) Family Medical History: No Reported History Son(s) Family Medical History: No Reported History Daughter(s) Family Medical History: No Reported History Medications and Allergies Home Medications Medication Instructions Recorded Confirmed Type Ondansetron Odt [Zofran ODT] 8 mg PO BID 02/25/22 02/25/22 History Pantoprazole Sodium [Protonix] 40 mg PO DAILY 30 Days #30 tab 02/26/22 Rx Prochlorperazine [Compazine] 10 mg PO Q6H PRN #40 tab 02/26/22 Rx Allergies Allergy/AdvReac Type Severity Reaction Status Date / Time sulfamethoxazole Allergy Rash/Hives Verified 03/08/22 22:48 [From Bactrim] trimethoprim [From Bactrim] Allergy Rash/Hives Verified 03/08/22 22:48 Physical Exam Vitals: Vital Signs Temp Pulse Resp BP Pulse Ox 03/09/22 03:39 98 F 70 18 123/68 98 03/09/22 02:58 98 F 70 18 123/68 98 03/08/22 23:59 91 22 155/88 98 03/08/22 23:07 98 22 180/98 98 03/08/22 22:45 98.4 F 90 19 145/89 96 Intake and Output 03/08/22 03/08/22 03/09/22 14:59 22:59 06:59 Other: Weight 70.307 kg Constitutional: Patient looks anxious, restless, tearful. Cooperative Eyes: Anicteric sclerae, moist conjunctiva, Pupils equal round reactive to light ENMT: NC/AT Oropharynx clear, no erythema, or exudates Neck: Supple, no masses, or JVD No carotid bruits No thyromegaly Lungs: Clear to auscultation Clear to percussion Normal respiratory effort, no accessory muscle use Cardiovascular: Heart regular in rate and rhythm, No murmurs, gallops, or rubs No peripheral edema Abdominal: Soft Diffuse tenderness to deep palpation mainly in the left lower quadrant umbilical region with voluntary guarding, no rebound or rigidity Abdomen moving with respiration Normoactive bowel sounds No hepatomegaly, No splenomegaly No palpable mass No abdominal wall hernia noted Skin: Normal temperature, tone, texture, turgor No induration No subcutaneous nodules No rash, lesions No ulcers Extremities: No digital cyanosis No clubbing Pedal pulses intact and symmetrical Radial pulses intact and symmetrical No calf tenderness Psychiatric: Alert and oriented to person, place and time Appropriate affect fair judgement Neuro Muscles Strength 5/5 in all 4 extremities Sensation to light touch grossly present throughout Cranial nerves II-XII grossly intact No focal sensory deficits Lymphatics: no palpable cervical or supraclavicular , or inguinal lymph nodes Results CBC & Chem 7: 03/08/22 23:46 03/08/22 23:46 Labs: Abnormal Lab Results - Last 24 Hours (Table) 03/08/22 03/08/22 03/08/22 Range/Units 23:46 23:46 23:46 WBC 14.9 H (3.8-10.6) k/uL Plt Count 533 H (150-450) k/uL Neutrophils # 13.2 H (1.3-7.7) k/uL Carbon Dioxide 18 L (22-30) mmol/L Glucose 170 H (74-99) mg/dL Plasma Lactic Acid Jose 4.5 H* (0.7-2.0) mmol/L Calcium 10.3 H (8.4-10.2) mg/dL Total Protein 9.1 H (6.3-8.2) g/dL Albumin 5.2 H (3.5-5.0) g/dL Assessment and Plan Assessment: Acute recurrent abdominal pain Refractory nausea vomiting with streaks of blood Diarrhea with dark stools Stable hemoglobin Elevated white count and lactic acidosis Pending CT abdomen and pelvis with contrast rule out intra-abdominal pathology like diverticulitis Lactic acidosis continued IV fluid hydration normal saline Electrolytes overall stable Pending urine drug screen Pain control with opiates Somatic controlled nausea vomiting with Zofran PPI twice a day Mechanical DVT prophylaxis Anticipated length of stay less than 2 midnights DVT prophylaxis mechanical
--- NOTE | 2022-03-09 04:06 | CT ---
EXAMINATION TYPE: CT abdomen pelvis w con DATE OF EXAM: 03/09/2022 COMPARISON: 02/25/2022 HISTORY: VOMITING/ABDOMINAL PAIN. R/O DIVERTICULITIS, SX: APPY, TUBAL. CT DLP: 819.9 mGycm Automated exposure control for dose reduction was used. CONTRAST: Performed with IV Contrast, patient injected with 100ML mL of Isovue 300. Images obtained from the diaphragm to the floor the pelvis with IV contrast. Lung bases are clear. There is no pleural effusion. Heart size is normal. Liver spleen and stomach pa ncreas gallbladder appear intact. The bile ducts are not dilated. There is no adrenal mass. Kidneys show satisfactory contrast opacification. There is no hydronephrosi s. Ureters are not dilated. There is no retroperitoneal adenopathy. Urinary bladder distends smoothly . There is no free fluid in the pelvis. No pelvic mass. There is no inguinal hernia. Uterus is retrov erted. There is no mesenteric edema. No ascites or free air. No bowel obstruction. Appendix not clearly seen . No sign of thickened appendix. The lumbar vertebrae have normal alignment. There is vacuum disc at L5-S1. No compression fracture. Posterior elements are intact. The bony pelvis is intact. Hip joints are intact. IMPRESSION: Negative CT scan abdomen and pelvis. No evidence of diverticulitis or diverticulosis.
[2022-03-09] MEDS ORDERED: SODIUM CHLORIDE 0.9% 1,000 ML IV ONE (04:29)
[2022-03-09] MEDS: MORPHINE SULFATE 4 MG/ML SYRINGE IV PRN ×5 (04:57→22:21)
[2022-03-09] MEDS: PANTOPRAZOLE 40 MG TABLET PO SCH ×2 (08:00→17:30)
[2022-03-09 08:30] LABS: Appearance,Urine Clear (Clear); Bilirubin,Urine Negative (Negative); Blood,Urine Trace (Negative); Color,Urine Yellow; Glucose,Urine (UA) Negative (Negative); Ketones,Urine Negative (Negative); Leukocyte Esterase,Urine Negative (Negative); Mucus,Urine Rare /hpf; Nitrite,Urine Negative (Negative); PH, Urine 7.5 (5.0-8.0); Protein,Urine Trace (Negative); RBC,Urine 5 /hpf (0-5); Squamous Epithelial Cell,Urine 2 /hpf (0-4); Urobilinogen,Urine <2.0 mg/dL (<2.0); WBC,Urine 2 /hpf (0-5)
[2022-03-09 08:31] LABS: Specific Gravity,Urine >1.050 (1.001-1.035)
[2022-03-09 08:45] LABS: Amphetamine Screen,Urine Not Detected (NotDetected); Barbiturate Screen,Urine Not Detected (NotDetected); Benzodiazepines Screen,Urine Not Detected (NotDetected); Cocaine Screen,Urine Not Detected (NotDetected); Methadone Screen, Urine Not Detected (NotDetected); Opiate Screen,Urine Detected (NotDetected); Oxycodone Screen, Urine Not Detected (NotDetected); Phencyclidine Screen,Urine Not Detected (NotDetected); Tricyclic Antidepressant,Urine Not Detected (NotDetected); Urn Cannabinoid Scrn Detected (NotDetected)
[2022-03-09 08:49] LABS: Basophils # (A) 0.02 X 10*3/uL (0.00-0.10); Basophils % (A) 0.2 %; Eosinophils # (A) 0 X 10*3/uL (0.04-0.35); Eosinophils % (A) 0 %; HCT 36.8 % (37.2-46.3); HGB 12.2 g/dL (12.0-15.0); Immature Grans, Automated 0.2 %; Lymphocytes # (A) 1.01 X 10*3/uL (0.90-5.00); Lymphocytes % (A) 8.1 %; MCH 32.7 pg (27.0-32.0); MCHC 33.2 g/dL (32.0-37.0); MCV 98.7 fL (80.0-97.0); Mean Platelet Volume 10.3 fL (9.5-12.2); Monocytes # (A) 0.34 X 10*3/uL (0.20-1.00); Monocytes % (A) 2.7 %; NRBC Per 100 WBC 0 /100 WBCS (0.0-0.0); Neutrophils # (A) 11.05 X 10*3/uL (1.80-7.70); Neutrophils % (A) 88.8 %; Platelet Count 435 X 10*3/uL (140-440); RBC 3.73 X 10*6/uL (4.10-5.20); WBC 12.45 X 10*3/uL (4.50-10.00)
[2022-03-09 14:24] LABS: African American GFR (CKD) 105.4 (60.0-200.0); BUN/Creat Ratio 19.63 Ratio (12.00-20.00); Blood Urea Nitrogen 15.7 mg/dL (9.0-27.0); Calcium 9.2 mg/dL (8.7-10.3); Non-African American GFR(CKD) 90.9 (60.0-200.0); Potassium 4.2 mmol/L (3.5-5.5)
[2022-03-09 14:40] LABS: Anion Gap 16.7 mmol/L (10.00-18.00); Carbon Dioxide 18.3 mmol/L (20.0-27.5)
[2022-03-10] MEDS: SODIUM CHLORIDE 0.9% 1,000 ML IV SCH (02:17)
[2022-03-10] MEDS: PANTOPRAZOLE 40 MG TABLET PO SCH (07:56)
[2022-03-10] MEDS: ONDANSETRON 4 MG/2 ML VIAL IVP PRN (08:00)
[2022-03-10 08:01] VITALS: BP 136/75; PULSE 77; RESP 16; TEMP 98.5
[2022-03-10] MEDS: MORPHINE SULFATE 4 MG/ML SYRINGE IV PRN (08:02)
[2022-03-10 09:58] LABS: African American GFR (CKD) 130.3 (60.0-200.0); Albumin 3.4 g/dL (3.8-4.9); Albumin/Globulin Ratio 1.79 (1.60-3.17); Anion Gap 9.8 mmol/L (10.00-18.00); BUN/Creat Ratio 13.5 Ratio (12.00-20.00); Blood Urea Nitrogen 8.1 mg/dL (9.0-27.0); Calcium 8.2 mg/dL (8.7-10.3); Carbon Dioxide 21.2 mmol/L (20.0-27.5); Globulin 1.9 g/dL (1.6-3.3); Magnesium 1.9 mg/dL (1.5-2.4); Non-African American GFR(CKD) 112.4 (60.0-200.0); Potassium 3.6 mmol/L (3.5-5.5); Total Bilirubin 0.4 mg/dL (0.30-1.20); Total Protein 5.3 g/dL (6.2-8.2)
[2022-03-10 12:39] LABS: Basophils # (A) 0.05 X 10*3/uL (0.00-0.10); Basophils % (A) 0.6 %; Eosinophils # (A) 0.18 X 10*3/uL (0.04-0.35); Eosinophils % (A) 2.3 %; HCT 31.2 % (37.2-46.3); Immature Grans, Automated 0.1 %; Lymphocytes # (A) 3.73 X 10*3/uL (0.90-5.00); Lymphocytes % (A) 47.6 %; MCH 32.3 pg (27.0-32.0); MCHC 32.1 g/dL (32.0-37.0); MCV 100.6 fL (80.0-97.0); Mean Platelet Volume 10.7 fL (9.5-12.2); Monocytes # (A) 0.53 X 10*3/uL (0.20-1.00); Monocytes % (A) 6.8 %; NRBC Per 100 WBC 0 /100 WBCS (0.0-0.0); Neutrophils # (A) 3.33 X 10*3/uL (1.80-7.70); Neutrophils % (A) 42.6 %; Platelet Count 295 X 10*3/uL (140-440); RDW 12.8 % (11.5-14.5); WBC 7.83 X 10*3/uL (4.50-10.00)
[2022-03-10 12:40] LABS: RBC Morphology NORMAL
--- NOTE | 2022-03-10 12:42 | P.DS ---
Providers Date of admission: 03/09/22 02:32 Expected date of discharge: 03/10/22 Attending physician: Ronal Catalan MD Primary care physician: Ramya Corcoran [facility] Course: Discharge Diagnosis: Cannabinoid hyperemesis syndrome, patient was strongly educated on the importance of cessation of cannabis use. Abdominal pain, nausea, vomiting with history of gastroparesis. Resolved, patient has had no further reported episodes of nausea, vomiting, or diarrhea since admission. Leukocytosis, likely reactive secondary to dehydration and improved after IV fluid administration. Thrombocytosis, likely reactive secondary to dehydration and resolved after IV fluid administration. Nicotine dependence, recommend smoking cessation Chronic back pain, recommend alternative pain management regimens including lidocaine patches and heating pads with use of [id number] analgesias such as Motrin and/or Tylenol. 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 Hospital Course: Patient is a very pleasant 41-year-old female with a past medical history of GERD, anxiety, bipolar disorder, marijuana use, nicotine dependence, cannabinoid hyperemesis syndrome and gastroparesis. She presented to the emergency department with a chief complaint of severe abdominal pain accompanied by diarrhea and intractable nausea and vomiting. Since arrival in the emergency department patient underwent workup and was admitted under our services to observation for overnight monitoring and treatment. Labs initially positive for lactic acidosis with lactate 2.1 decreasing to 1.4 after IV fluid bolus. CBC revealed mild leukocytosis of 14.9 improved from previous days WBC count of 14.9. Thrombocytosis with platelet count of 533 decreasing to 435 after IV fluid hydration. CMP revealing normal liver function, normal amylase and lipase. Electrolytes all unremarkable. Urinalysis negative for infection. Urine drug screen positive for opiates and marijuana. KUB negative for acute process. CT abdomen and pelvis with contrast unremarkable, negative for any acute intra-abdominal or intrapelvic abnormality showing no evidence of diverticulitis or diverticulosis. EKG showing sinus rhythm at 84 bpm with no noted T-wave or ST abnormalities and troponin negative at less than 0.012. Abigail ieyessenia was admitted under our services and monitored overnight. Patient received IV morphine , antiemetics, and IV fluid hydration. Patient had no further reported episodes of nausea, vomiting, or diarrhea since admission. Patient tolerated oral intake and breakfast with no episodes of vomiting. RN instructed morphine to be discontinued at this time. Patient notified that narcotic was being discontinued at this time and pt began to yell and scream in room. Patient yelling and tearful stating, "I need to see real doctors and not these quacks that work for [employer]". Patient very upset expressing frustration that her doctor stopped prescribing her [place] and so she smokes marijuana to try and help her chronic back pain and when she smokes marijuana she gets gastroparesis but there is nothing else she can do because nothing else helps her. Patient states some doctors tell her to smoke more marijuana and we keep trying to tell her to stop smoking marijuana but yet will not prescribe her the [place] she needs to help her back pain. Patient informed that [place] will not be prescribed upon discharge and educated that continued use of cannabis will result in recurrent episodes of cannabinoid hyperemesis and gastroparesis. Patient was very angry and started hitting her bed stating "what am I supposed to do when nobody will prescribe me the medication I need?" Discussed with patient that she will need to follow up with the pain management doctor for her chronic back pain and again discussed alternative pain management regimens including lidocaine patches and heating pads as well as over the counter analgesics such as tylenol and motrin. Prescription sent for lidocaine patches at this time. Patient again educated on complete cessation of cannabis use and risks of recurrent cannabinoid hyperemesis with continued use. Patient instructed she will need to follow up outpatient with her PCP in 1-[address] Flores in 2 weeks as previously scheduled. Physical exam: Vital signs reviewed and stable. General: Nontoxic, no distress and appears stated age. Derm: Skin warm and dry, normal coloration for ethnicity. Head: Atraumatic, normocephalic and symmetric. Eyes: EOMs intact, no lid lag, and anicteric sclera Mouth: no lip lesions, mucus membranes moist Cardiovascular: regular rate and rhythm with normal S1S2, no murmur, positive posterior tibial pulses bilaterally, and cap refill < 2 seconds. Lungs: Respirations even, regular, and unlabored on room air. Lungs CTA bilaterally, no rhonchi, no rales, no wheezing, and no accessory muscle usage. Abdominal: soft, bowel sounds 4 quadrants, no tenderness reported upon palpation, no guarding, no appreciable organomegaly Ext: ROM intact. No gross muscle atrophy, no edema, no contractures Neuro: Speech clear, face symmetrical and CN II-XII grossly intact with no noted focal neuro deficits Psych: Alert and oriented to person, place, time, and situation. Appropriate and pleasant affect. A total of 39 minutes of time were spent preparing this complex discharge summary. Quintin Cash NP rendered care for this patient independently, reviewed the findings and plan as documented in the note above. I did not physically speak with or examine the patient on this date. Patient Condition at Discharge: Stable Plan - Discharge Summary Discharge Rx Participant: Yes New Discharge Prescriptions: New Lidocaine 5% Patch [Lidoderm 5% Patch] 1 patch TOPICAL DAILY 30 Days #30 patch Continue Prochlorperazine [Compazine] 10 mg PO Q6H PRN #40 tab PRN Reason: Nausea And Vomiting Ondansetron Odt [Zofran ODT] 8 mg PO BID Pantoprazole Sodium [Protonix] 40 mg PO DAILY 30 Days #30 tab Discharge Medication List Ondansetron Odt [Zofran ODT] 8 mg PO BID 02/25/22 [History] Pantoprazole Sodium [Protonix] 40 mg PO DAILY 30 Days #30 tab 02/26/22 [Rx] Prochlorperazine [Compazine] 10 mg PO Q6H PRN #40 tab 02/26/22 [Rx] Lidocaine 5% Patch [Lidoderm 5% Patch] 1 patch TOPICAL DAILY 30 Days #30 patch 03/10/22 [Rx] Follow up Appointment(s)/Referral(s): Jewell Bui MD [Primary Care Provider] - 03/13/22 9:00 am Lavonne Flores MD [STAFF PHYSICIAN] - 1 Week Patient Instructions/Handouts: Cannabis Abuse (DC), Chronic Back Pain (DC), Cyclic Vomiting Syndrome (DC) Activity/Diet/Wound Care/Special Instructions: Activity: As tolerated. Take breaks as needed. Diet: Heart healthy and carb consistent diet. Avoid salts, or foods with hidden salts such as canned or boxed foods and frozen dinners. Extra salt makes your heart work harder and traps the fluid in your body for longer. Special Instructions: Take all of your medications as directed and remember to keep all of your doctor's appointments and follow-up as needed. As we have discussed, it is of upmost importance that you stop all use of marijuana as this will only result in recurrent episodes of cannabinoid hyperemesis. You will need to follow up with the swimmer, Dr. Flores as previously scheduled. I understand that you are frustrated over no longer being prescribed [place] for your chronic back pain, it is important to try alternative therapies until you are able to get in with a chronic pain specialist. You have been prescribed lidocaine patches as discussed and highly recommend use of heating pad to assist in chronic lower back pain management. Thank you for allowing us to participate in your care, it was truly a pleasure having you for our patient!!! Discharge Disposition: HOME SELF-CARE
== END 2022-03-10 11:45 | disposition home or self-care (01) ==
LOC: EC 22:27 → 4SSUR 03-09 02:32
PROVIDERS: ADMIT Internal Medicine; ATTEND Internal Medicine
DX: K31.84 Gastroparesis (principal); F12.90 Cannabis use, unspecified, uncomplicated; D72.829 Elevated white blood cell count, unspecified; D75.839 Thrombocytosis, unspecified; E86.0 Dehydration; E87.2 Acidosis; G89.29 Other chronic pain; M54.50 Low back pain, unspecified; R07.89 Other chest pain; R19.7 Diarrhea, unspecified; M25.511 Pain in right shoulder; M77.8 Other enthesopathies, not elsewhere classified; R19.5 Other fecal abnormalities; R06.4 Hyperventilation; K21.9 Gastro-esophageal reflux disease without esophagitis; E78.5 Hyperlipidemia, unspecified; F41.9 Anxiety disorder, unspecified; F31.9 Bipolar disorder, unspecified; K29.70 Gastritis, unspecified, without bleeding; R20.0 Anesthesia of skin; G43.909 Migraine, unspecified, not intractable, without status migrainosus; R42 Dizziness and giddiness; F17.200 Nicotine dependence, unspecified, uncomplicated; Z79.899 Other long term (current) drug therapy; Z88.2 Allergy status to sulfonamides; Z71.51 Drug abuse counseling and surveillance of drug abuser; Z71.6 Tobacco abuse counseling; Z71.89 Other specified counseling; Z81.8 Family history of other mental and behavioral disorders; Z81.1 Family history of alcohol abuse and dependence; Z82.0 Family history of epilepsy and other diseases of the nervous system; Z80.3 Family history of malignant neoplasm of breast
CPT/HCPCS: 96376 ×3; 96361 ×3; 96374; 96375; 99285; 36415; 93005; 80053 ×2; 80048; 82150; 83605 ×2; 83690 ×2; 83735; 84484; 85025 ×3; 85610; 85730; 81001; 80306; 74018; 74177; G0378 ×2; J2270 ×2; J2405 ×2; C9113; Q9967

== ENCOUNTER 2022-04-18 03:25 | Emergency (ER) | payer MEDICARE ==
[2022-04-18] MEDS ORDERED: PANTOPRAZOLE 40 MG/10 ML VIAL IVP STA (06:13)
[2022-04-18] MEDS ORDERED: MORPHINE SULFATE 4 MG/ML SYRINGE IV STA (06:13)
[2022-04-18] MEDS ORDERED: ONDANSETRON 4 MG/2 ML VIAL IVP STA ×3 (06:13→09:42)
[2022-04-18] MEDS ORDERED: SODIUM CHLORIDE 0.9% 1,000 ML IV STA (06:13)
--- NOTE | 2022-04-18 06:18 | ED ---
General Adult HPI - General Chief complaint: Nausea/Vomiting/Diarrhea Stated complaint: vomiting Time Seen by Provider: 04/18/22 06:05 Source: patient, RN notes reviewed, old records reviewed Mode of arrival: wheelchair Limitations: no limitations - History of Present Illness Initial comments: 42-year-old female presents to the emergency room with complaints of nausea vomiting and diarrhea that started yesterday afternoon at 3:00. Patient states that the stool is dark brown and green in color. She denies any hematochezia or hematemesis. She states that this feels similar to her previous episodes of gastroparesis. She denies any fevers, difficulty breathing or chest pain at this time. She states that she did smoke marijuana yesterday. Her last menstrual period finished 4 days ago. She has had a history of GERD, gastroparesis, renal disease and is a pack-a-day smoker. She states that she has not seen Dr. Montenegro in a while and states that there is nothing that she can do for her. -: hour(s) (15) Location: abdomen Severity scale (1-10): 8 Quality: constant Consistency: constant Improves with: none Associated Symptoms: nausea/vomiting, other (diarrhea) - Related Data Home Medications Medication Instructions Recorded Confirmed Ondansetron Odt [Zofran ODT] 8 mg PO BID 02/25/22 04/18/22 Previous Rx's Medication Instructions Recorded Pantoprazole Sodium [Protonix] 40 mg PO DAILY 30 Days #30 tab 02/26/22 Prochlorperazine [Compazine] 10 mg PO Q6H PRN #40 tab 02/26/22 Famotidine [Pepcid] 20 mg PO BID #28 tablet 04/18/22 Allergies Allergy/AdvReac Type Severity Reaction Status Date / Time sulfamethoxazole Allergy Rash/Hives Verified 04/18/22 09:01 [From Bactrim] trimethoprim [From Bactrim] Allergy Rash/Hives Verified 04/18/22 09:01 Review of Systems ROS Statement: Those systems with pertinent positive or pertinent negative responses have been documented in the HPI. ROS Other: All systems not noted in ROS Statement are negative. Past Medical History Past Medical History: GERD/Reflux, Hyperlipidemia, Renal Disease Additional Past Medical History / Comment(s): Gastroparesis, gastritis, esophageal tears, chronic low back pain, herniated lower discs, bilateral wrist tendonitis with R side worse, R shoulder pain past couple months, numbness to bilateral hand fingers when first wakes, migraines, instructed to sleep with HOB up 6 inches d/t heart rate dropping with sleep, vertigo, pyelonephritis, History of Any Multi-Drug Resistant Organisms: None Reported Past Surgical History: Appendectomy, Tubal Ligation Additional Past Surgical History / Comment(s): Botox injection "mouth" of stomach-R/T SPASMS , EGDs, colonoscopy, vaginal cyst drained. Past Anesthesia/Blood Transfusion Reactions: No Reported Reaction Additional Past Anesthesia/Blood Transfusion Reaction / Comment(s): Never had blood transfusion. Past Psychological History: Anxiety, Bipolar, Depression Smoking Status: Current every day smoker Past Alcohol Use History: None Reported Past Drug Use History: Marijuana - Past Family History Mother Family Medical History: Cancer Additional Family Medical History / Comment(s): Mother is living. She has had breast cancer and 2 back surgeries. Father Family Medical History: No Reported History Additional Family Medical History / Comment(s): Father had ETOH abuse and was manic depressive. He after a fall where he fractured his back then "drank" himself to . Brother(s) Family Medical History: Neurologic Disorder Sister(s) Family Medical History: No Reported History Son(s) Family Medical History: No Reported History Daughter(s) Family Medical History: No Reported History General Exam Limitations: no limitations General appearance: alert, in no apparent distress ENT exam: Present: mucous membranes dry Neck exam: Present: full ROM Respiratory exam: Present: normal lung sounds bilaterally. Absent: respiratory distress, wheezes, rales, rhonchi, stridor, chest wall tenderness, accessory muscle use, decreased breath sounds Cardiovascular Exam: Present: regular rate GI/Abdominal exam: Present: soft, tenderness (epigastric), normal bowel sounds. Absent: distended, rigid Extremities exam: Present: full ROM, normal capillary refill Back exam: Present: normal inspection. Absent: tenderness, CVA tenderness (R), CVA tenderness (L), rash noted Neurological exam: Present: alert, oriented X3 Psychiatric exam: Present: normal affect, normal mood Skin exam: Present: warm, dry, normal color. Absent: cyanosis, diaphoretic Course Vital Signs 04/18/22 04/18/22 04/18/22 03:39 07:23 10:35 Temperature 97.9 F 97.8 F Pulse Rate 82 85 65 Respiratory 22 18 18 Rate Blood Pressure 142/88 121/78 108/55 O2 Sat by Pulse 98 95 95 Oximetry - Reevaluation(s) Reevaluation #1: 04/18/22 07:34 Patient was observed restfully sleeping on her left side. When awakened she st ates that she continues to have excruciating pain and requesting more pain medications and nausea meds. No vomiting in the emergency room. Case discussed with Dr. Car and patient was given Haldol. Time: 07:20 EKG Findings - EKG Results: EKG: sinus rhythm (Ventricular rate 92, BUN for 0.124, QRS 0.82, QTC 0.432) Medical Decision Making - Medical Decision Making Patient has idiopathic gastroparesis. She did undergo a Botox treatment in April 2020 with no relief. She does have a history of appendectomy. Patient states that she did smoke marijuana yesterday. Patient was last hospitalized on March 10, 2022 and discharged, directed to discontinue marijuana use and take Compazine and Zofran as needed, along with Protonix daily. She was also referred to her primary care doctor, GI and painter barrel at that time. Patient states that she has not followed up with Dr. Montenegro and states that she has not been able to help her. Vital signs are stable. Leukocytosis today likely reactive to dehydration and vomiting. She was given 1.5 L of normal saline. Electrolytes show mild dehydration. Abdomen is soft and minimally tender in the epigastrium likely from persistent vomiting prior to arrival. Patient was given antiemetics and pain medication. This is likely her gastroparesis. She was offered a prescription for Reglan and declines stating it makes her symptoms worse. She was counseled that narcotic pain medications may worsen her gastroparesis. She was also directed to stop smoking marijuana, avoid carbonated beverages and alcohol. Eat smaller more frequent meals and and increase her fluid intake. She was referred to her primary care doctor and vending mechanic and directed to continue her previously prescribed medications. Case discussed with Dr. Car - Lab Data Result diagrams: 04/18/22 06:29 04/18/22 06:29 Lab Results 05/27/22 05/27/22 Range/Units 06:29 06:29 WBC 17.6 H (3.8-10.6) k/uL RBC 4.28 (3.80-5.40) m/uL Hgb 13.7 (11.4-16.0) gm/dL Hct 42.7 (34.0-46.0) % MCV 99.9 (80.0-100.0) fL MCH 32.1 (25.0-35.0) pg MCHC 32.1 (31.0-37.0) g/dL RDW 12.2 (11.5-15.5) % Plt Count 453 H (150-450) k/uL MPV 9.1 Neutrophils % 91 % Lymphocytes % 4 % Monocytes % 3 % Eosinophils % 1 % Basophils % 0 % Neutrophils # 16.1 H (1.3-7.7) k/uL Lymphocytes # 0.7 L (1.0-4.8) k/uL Monocytes # 0.4 (0-1.0) k/uL Eosinophils # 0.3 (0-0.7) k/uL Basophils # 0.1 (0-0.2) k/uL Sodium 141 (137-145) mmol/L Potassium 5.3 H (3.5-5.1) mmol/L Chloride 103 (98-107) mmol/L Carbon Dioxide 20 L (22-30) mmol/L Anion Gap 18 mmol/L BUN 17 (7-17) mg/dL Creatinine 0.85 (0.52-1.04) mg/dL Est GFR (CKD-EPI)AfAm >90 (>60 ml/min/1.73 sqM) Est GFR (CKD-EPI)NonAf 85 (>60 ml/min/1.73 sqM) Glucose 167 H (74-99) mg/dL Calcium 10.1 (8.4-10.2) mg/dL Total Bilirubin 1.0 (0.2-1.3) mg/dL AST 36 (14-36) U/L ALT 24 (4-34) U/L Alkaline Phosphatase 76 (38-126) U/L Total Protein 9.1 H (6.3-8.2) g/dL Albumin 5.2 H (3.5-5.0) g/dL Amylase 60 (30-110) U/L Lipase 16 L (23-300) U/L Disposition Clinical Impression: Gastroparesis, Nausea and vomiting Disposition: HOME SELF-CARE Condition: Good Instructions (If sedation given, give patient instructions): Acute Nausea and Vomiting (ED) Additional Instructions: It is important that you follow-up with your primary care doctor and vending mechanic and continue your previously prescribed medications. Narcotic pain medications may worsen your symptoms. Stop smoking marijuana, avoid carbonated beverages and alcohol. Eat smaller more frequent meals and and increase your fluid intake. Prescriptions: Famotidine [Pepcid] 20 mg PO BID #28 tablet Is patient prescribed a controlled substance at d/c from ED?: No Referrals: Jewell Bui MD [Primary Care Provider] - 1-2 days Time of Disposition: 09:34
[2022-04-18 06:55] LABS: Basophils # (A) 0.1 k/uL (0-0.2); Basophils % (A) 0 %; Eosinophils # (A) 0.3 k/uL (0-0.7); Eosinophils % (A) 1 %; HCT 42.7 % (34.0-46.0); HGB 13.7 gm/dL (11.4-16.0); Lymphocytes # (A) 0.7 k/uL (1.0-4.8); Lymphocytes % (A) 4 %; MCH 32.1 pg (25.0-35.0); MCHC 32.1 g/dL (31.0-37.0); MCV 99.9 fL (80.0-100.0); Mean Platelet Volume 9.1; Monocytes # (A) 0.4 k/uL (0-1.0); Monocytes % (A) 3 %; Neutrophils # (A) 16.1 k/uL (1.3-7.7); Neutrophils % (A) 91 %; Platelet Count 453 k/uL (150-450); RBC 4.28 m/uL (3.80-5.40); RDW 12.2 % (11.5-15.5); WBC 17.6 k/uL (3.8-10.6)
[2022-04-18 07:10] LABS: African American GFR (CKD) >90 (>60 ml/min/1.73 sqM); Albumin 5.2 g/dL (3.5-5.0); Amylase 60 U/L (30-110); Anion Gap 18 mmol/L; Blood Urea Nitrogen 17 mg/dL (7-17); Calcium 10.1 mg/dL (8.4-10.2); Carbon Dioxide 20 mmol/L (22-30); Chloride 103 mmol/L (98-107); Glucose 167 mg/dL (74-99); Lipase 16 U/L (23-300); Non-African American GFR(CKD) 85 (>60 ml/min/1.73 sqM); Sodium 141 mmol/L (137-145); Total Protein 9.1 g/dL (6.3-8.2)
[2022-04-18 07:17] LABS: ALT 24 U/L (4-34)
[2022-04-18 07:25] VITALS: RESP 18
[2022-04-18] MEDS ORDERED: HALOPERIDOL LACTATE 5 MG/ML 1 ML VIAL IVP STA (07:28)
[2022-04-18 07:36] LABS: AST 36 U/L (14-36); Alkaline Phosphatase 76 U/L (38-126); Potassium 5.3 mmol/L (3.5-5.1)
[2022-04-18] MEDS ORDERED: SODIUM CHLORIDE 0.9% 500 ML 500 ML IV ONE (07:43)
[2022-04-18] MEDS ORDERED: SODIUM CHLORIDE 0.9% 1,000 ML IV SCH (07:45)
[2022-04-18] MEDS ORDERED: MORPHINE SULFATE 4 MG/ML SYRINGE IVP STA (09:42)
[2022-04-18 10:37] VITALS: BP 108/55; PULSE 65; TEMP 97.8
== END 2022-04-18 10:43 | disposition home or self-care (01) ==
LOC: EC 03:25
DX: K31.84 Gastroparesis (principal); D72.829 Elevated white blood cell count, unspecified; E86.0 Dehydration; F17.200 Nicotine dependence, unspecified, uncomplicated; Z88.1 Allergy status to other antibiotic agents; Z88.2 Allergy status to sulfonamides
CPT/HCPCS: 36415; 93005; 80053; 82150; 83690; 85025; 99284; 96374; 96375; 96376; 96361; J2270; J1630; J2405; C9113

== ENCOUNTER 2022-06-25 01:29 | Emergency (ER) | payer MEDICARE ==
[2022-06-25 01:34] VITALS: BP 157/87; PULSE 90; RESP 19; TEMP 98
[2022-06-25] MEDS ORDERED: SODIUM CHLORIDE 0.9% 1,000 ML IV STA (02:36)
[2022-06-25] MEDS ORDERED: ONDANSETRON 4 MG/2 ML VIAL IVP STA ×2 (02:36→03:19)
[2022-06-25] MEDS ORDERED: HYDROmorphone 0.5 MG/0.5 ML SYRINGE IVP STA (02:36)
--- NOTE | 2022-06-25 02:39 | ED ---
General Adult HPI - General Chief complaint: Abdominal Pain Stated complaint: Abd Pain Time Seen by Provider: 06/25/22 01:55 Source: patient, RN notes reviewed Mode of arrival: wheelchair - History of Present Illness Initial comments: 42-year-old female presents to the emergency Department with complaints of lower abdominal cramping and multiple episodes of nausea and vomiting. Patient states her symptoms correlate with her menstrual cycle was seen by her DIESEL POWERPLANT MECHANIC earlier today. Patient states she has these episodes monthly and she is working with the angular js developer to better manage the symptoms. Patient states she was unable to tolerate anything by mouth therefore did not take anything to treat her symptoms prior to arrival. Denies fever, chills, headache, chest pain, difficulty breathing, dysuria, or hematuria. - Related Data Home Medications Medication Instructions Recorded Confirmed Ondansetron Odt [Zofran ODT] 8 mg PO BID 02/25/22 04/18/22 Previous Rx's Medication Instructions Recorded Pantoprazole Sodium [Protonix] 40 mg PO DAILY 30 Days #30 tab 02/26/22 Prochlorperazine [Compazine] 10 mg PO Q6H PRN #40 tab 02/26/22 Famotidine [Pepcid] 20 mg PO BID #28 tablet 04/18/22 Ketorolac [Toradol] 10 mg PO Q8HR #15 tab 06/25/22 Ondansetron Odt [Zofran Odt] 4 mg PO Q8HR PRN #10 tab 06/25/22 Allergies Allergy/AdvReac Type Severity Reaction Status Date / Time sulfamethoxazole Allergy Rash/Hives Verified 06/25/22 01:34 [From Bactrim] trimethoprim [From Bactrim] Allergy Rash/Hives Verified 06/25/22 01:34 Review of Systems ROS Statement: Those systems with pertinent positive or pertinent negative responses have been documented in the HPI. ROS Other: All systems not noted in ROS Statement are negative. Past Medical History Past Medical History: GERD/Reflux, Hyperlipidemia, Renal Disease Additional Past Medical History / Comment(s): Gastroparesis, gastritis, esophageal tears, chronic low back pain, herniated lower discs, bilateral wrist tendonitis with R side worse, R shoulder pain past couple months, numbness to bilateral hand fingers when first wakes, migraines, instructed to sleep with HOB up 6 inches d/t heart rate dropping with sleep, vertigo, pyelonephritis, History of Any Multi-Drug Resistant Organisms: None Reported Past Surgical History: Appendectomy, Tubal Ligation Additional Past Surgical History / Comment(s): Botox injection "mouth" of stomach-R/T SPASMS , EGDs, colonoscopy, vaginal cyst drained. Past Anesthesia/Blood Transfusion Reactions: No Reported Reaction Additional Past Anesthesia/Blood Transfusion Reaction / Comment(s): Never had blood transfusion. Past Psychological History: Anxiety, Bipolar, Depression Smoking Status: Current every day smoker Past Alcohol Use History: None Reported Past Drug Use History: Marijuana - Past Family History Mother Family Medical History: Cancer Additional Family Medical History / Comment(s): Mother is living. She has had breast cancer and 2 back surgeries. Father Family Medical History: No Reported History Additional Family Medical History / Comment(s): Father had ETOH abuse and was manic depressive. He after a fall where he fractured his back then "drank" himself to . Brother(s) Family Medical History: Neurologic Disorder Sister(s) Family Medical History: No Reported History Son(s) Family Medical History: No Reported History Daughter(s) Family Medical History: No Reported History General Exam Limitations: no limitations General appearance: alert, in distress, other (This is a well-developed, ill- appearing female in moderate distress due to pain and nausea. Initial temperature 98.0, pulse 90, respirations 19, blood pressure 157/87, pulse ox 97% on room air.) Eye exam: Present: normal appearance, PERRL, EOMI. Absent: scleral icterus, conjunctival injection, periorbital swelling ENT exam: Present: normal exam, normal oropharynx, mucous membranes moist Neck exam: Present: normal inspection, full ROM. Absent: lymphadenopathy Respiratory exam: Present: normal lung sounds bilaterally. Absent: respiratory distress, wheezes, rales, rhonchi, stridor Cardiovascular Exam: Present: regular rate, normal rhythm, normal heart sounds. Absent: systolic murmur, diastolic murmur, rubs, gallop, clicks GI/Abdominal exam: Present: soft, normal bowel sounds. Absent: distended, tenderness, guarding, rebound, rigid Back exam: Absent: CVA tenderness (R), CVA tenderness (L) Neurological exam: Present: alert, oriented X3, CN II-XII intact Psychiatric exam: Present: anxious Skin exam: Present: warm, dry, intact, normal color. Absent: rash Course Vital Signs 06/25/22 01:31 Temperature 98 F Pulse Rate 90 Respiratory 19 Rate Blood Pressure 157/87 O2 Sat by Pulse 97 Oximetry - Reevaluation(s) Reevaluation #1: 06/25/22 04:15 Upon reassessment, patient is resting more comfortably at this time. States pain has improved, however nausea remains. She is not actively vomiting but insists that she is unable to go home feeling this poorly. Patient will be given Compazine, Toradol, and Benadryl, then will be discharged home to follow- up as scheduled. Medical Decision Making - Medical Decision Making This is a 42-year-old female with a past medical history of GERD and gastroparesis who presents to the emergency department for evaluation of a bdominal cramping and persistent nausea and vomiting; symptoms correlate with her menstrual cycle. Upon exam, patient is ill-appearing and actively vomiting. Her abdomen is soft and nontender. Physical exam findings are unremarkable otherwise. Laboratory studies were reviewed; urinalysis shows 3+ ketones and moderate blood likely contaminated from menstrual bleeding. Patient was given IV fluids, pain and nausea medicines which were repeated twice with improvement. She will be discharged home to follow-up scheduled. She is prescribed Zofran for nausea and Toradol for pain. Return parameters discussed in detail. Patient verbalizes understanding and agrees with this plan. Attending: Joceline. - Lab Data Result diagrams: 06/25/22 02:44 06/25/22 02:44 Lab Results 06/25/22 06/25/22 06/25/22 Range/Units 02:44 02:44 03:28 WBC 8.6 (3.8-10.6) k/uL RBC 4.12 (3.80-5.40) m/uL Hgb 13.2 (11.4-16.0) gm/dL Hct 40.5 (34.0-46.0) % MCV 98.4 (80.0-100.0) fL MCH 32.1 (25.0-35.0) pg MCHC 32.6 (31.0-37.0) g/dL RDW 12.2 (11.5-15.5) % Plt Count 462 H (150-450) k/uL MPV 8.2 Neutrophils % 79 % Lymphocytes % 15 % Monocytes % 4 % Eosinophils % 0 % Basophils % 1 % Neutrophils # 6.8 (1.3-7.7) k/uL Lymphocytes # 1.3 (1.0-4.8) k/uL Monocytes # 0.3 (0-1.0) k/uL Eosinophils # 0.0 (0-0.7) k/uL Basophils # 0.0 (0-0.2) k/uL Sodium 143 (137-145) mmol/L Potassium 3.7 (3.5-5.1) mmol/L Chloride 103 (98-107) mmol/L Carbon Dioxide 29 (22-30) mmol/L Anion Gap 11 mmol/L BUN 10 (7-17) mg/dL Creatinine 0.70 (0.52-1.04) mg/dL Est GFR (CKD-EPI)AfAm >90 (>60 ml/min/1.73 sqM) Est GFR (CKD-EPI)NonAf >90 (>60 ml/min/1.73 sqM) Glucose 144 H (74-99) mg/dL Calcium 10.2 (8.4-10.2) mg/dL Total Bilirubin 0.5 (0.2-1.3) mg/dL AST 20 (14-36) U/L ALT 13 (4-34) U/L Alkaline Phosphatase 77 (38-126) U/L Total Protein 8.0 (6.3-8.2) g/dL Albumin 4.9 (3.5-5.0) g/dL Urine Color Yellow Urine Appearance Cloudy H (Clear) Urine pH 7.5 (5.0-8.0) Ur Specific [place] 1.022 (1.001-1.035) Urine Protein 1+ H (Negative) Urine Glucose (UA) Trace H (Negative) Urine Ketones 3+ H (Negative) Urine Blood Moderate H (Negative) Urine Nitrite Negative (Negative) Urine Bilirubin Negative (Negative) Urine Urobilinogen <2.0 (<2.0) mg/dL Ur Leukocyte Esterase Negative (Negative) Urine RBC 56 H (0-5) /hpf Urine WBC 2 (0-5) /hpf Ur Squamous Epith Cells 7 H (0-4) /hpf Amorphous Sediment Occasional H (None) /hpf Urine Mucus Many H (None) /hpf Disposition Clinical Impression: Nausea and vomiting, Dysmenorrhea Disposition: HOME SELF-CARE Condition: Stable Instructions (If sedation given, give patient instructions): Dysmenorrhea (ED) Additional Instructions: Take Zofran as needed for nausea. May take Toradol if needed for pain or cramping. Do not take this along with Motrin or Naprosyn. Increase your intake of fluids. Consider electrolyte solution such as Gatorade or Powerade. Follow-up with your DIESEL POWERPLANT MECHANIC as scheduled. Return to the emergency department with any new, worsening, or concerning symptoms. Prescriptions: Ketorolac [Toradol] 10 mg PO Q8HR #15 tab Ondansetron Odt [Zofran Odt] 4 mg PO Q8HR PRN #10 tab PRN Reason: Nausea Is patient prescribed a controlled substance at d/c from ED?: No Referrals: Jewell Bui MD [Primary Care Provider] - 1-2 days
[2022-06-25 02:54] LABS: Basophils % (A) 1 %; Eosinophils % (A) 0 %; HCT 40.5 % (34.0-46.0); HGB 13.2 gm/dL (11.4-16.0); Lymphocytes # (A) 1.3 k/uL (1.0-4.8); Lymphocytes % (A) 15 %; MCH 32.1 pg (25.0-35.0); MCHC 32.6 g/dL (31.0-37.0); MCV 98.4 fL (80.0-100.0); Mean Platelet Volume 8.2; Monocytes # (A) 0.3 k/uL (0-1.0); Monocytes % (A) 4 %; Neutrophils # (A) 6.8 k/uL (1.3-7.7); Neutrophils % (A) 79 %; Platelet Count 462 k/uL (150-450); RBC 4.12 m/uL (3.80-5.40); RDW 12.2 % (11.5-15.5); WBC 8.6 k/uL (3.8-10.6)
[2022-06-25 03:04] LABS: ALT 13 U/L (4-34); AST 20 U/L (14-36); African American GFR (CKD) >90 (>60 ml/min/1.73 sqM); Albumin 4.9 g/dL (3.5-5.0); Alkaline Phosphatase 77 U/L (38-126); Anion Gap 11 mmol/L; Blood Urea Nitrogen 10 mg/dL (7-17); Calcium 10.2 mg/dL (8.4-10.2); Carbon Dioxide 29 mmol/L (22-30); Chloride 103 mmol/L (98-107); Glucose 144 mg/dL (74-99); Non-African American GFR(CKD) >90 (>60 ml/min/1.73 sqM); Potassium 3.7 mmol/L (3.5-5.1); Sodium 143 mmol/L (137-145); Total Bilirubin 0.5 mg/dL (0.2-1.3)
[2022-06-25] MEDS ORDERED: MORPHINE SULFATE 4 MG/ML SYRINGE IV STA (03:19)
[2022-06-25] MEDS ORDERED: KETOROLAC 15 MG/ML 1 ML VIAL IVP STA ×2 (03:32→04:16)
[2022-06-25 03:50] LABS: Amorphous Sediment,Urine Occasional /hpf; Appearance,Urine Cloudy (Clear); Bilirubin,Urine Negative (Negative); Blood,Urine Moderate (Negative); Color,Urine Yellow; Glucose,Urine (UA) Trace (Negative); Ketones,Urine 3+ (Negative); Leukocyte Esterase,Urine Negative (Negative); Mucus,Urine Many /hpf; Nitrite,Urine Negative (Negative); PH, Urine 7.5 (5.0-8.0); Protein,Urine 1+ (Negative); RBC,Urine 56 /hpf (0-5); Specific Gravity,Urine 1.022 (1.001-1.035); Squamous Epithelial Cell,Urine 7 /hpf (0-4); Urobilinogen,Urine <2.0 mg/dL (<2.0); WBC,Urine 2 /hpf (0-5)
[2022-06-25] MEDS ORDERED: PROCHLORPERAZINE INJ 10 MG/2 ML VIAL IVP STA (04:16)
[2022-06-25] MEDS ORDERED: diphenhydrAMINE 50 MG/ML 1 ML VIAL IVP STA (04:17)
== END 2022-06-25 05:53 | disposition home or self-care (01) ==
LOC: EC 01:29
DX: N94.6 Dysmenorrhea, unspecified (principal); E78.5 Hyperlipidemia, unspecified; F17.200 Nicotine dependence, unspecified, uncomplicated; Z88.2 Allergy status to sulfonamides
CPT/HCPCS: 36415; 80053; 85025; 81001; 99284; 96374; 96375; 96376; 96361; J2270; J1200; J0780; J2405; J1885; J1170

== ENCOUNTER 2022-12-03 11:09 | Emergency (ER) | payer MEDICARE ==
[2022-12-03 11:33] VITALS: TEMP 97.7
[2022-12-03 13:18] VITALS: BP 138/102; PULSE 88; RESP 18
[2022-12-03 13:34] LABS: Basophils % (A) 0 %; Eosinophils % (A) 1 %; HCT 44.8 % (34.0-46.0); HGB 15.2 gm/dL (11.4-16.0); Lymphocytes % (A) 14 %; MCH 33.3 pg (25.0-35.0); MCHC 33.9 g/dL (31.0-37.0); Mean Platelet Volume 7.6; Monocytes # (A) 0.2 k/uL (0-1.0); Monocytes % (A) 2 %; Neutrophils # (A) 6.4 k/uL (1.3-7.7); Neutrophils % (A) 82 %; Platelet Count 484 k/uL (150-450); RBC 4.57 m/uL (3.80-5.40); RDW 13.1 % (11.5-15.5); WBC 7.8 k/uL (3.8-10.6)
[2022-12-03 13:37] LABS: ALT 18 U/L (4-34); AST 22 U/L (14-36); African American GFR (CKD) >90 (>60 ml/min/1.73 sqM); Albumin 5.5 g/dL (3.5-5.0); Alkaline Phosphatase 78 U/L (38-126); Amylase 63 U/L (30-110); Anion Gap 16 mmol/L; Blood Urea Nitrogen 12 mg/dL (7-17); Calcium 10.6 mg/dL (8.4-10.2); Carbon Dioxide 20 mmol/L (22-30); Chloride 106 mmol/L (98-107); Glucose 137 mg/dL (74-99); Lipase 38 U/L (23-300); Non-African American GFR(CKD) 88 (>60 ml/min/1.73 sqM); Potassium 4.2 mmol/L (3.5-5.1); Sodium 142 mmol/L (137-145); Total Protein 9.4 g/dL (6.3-8.2)
[2022-12-03 13:42] LABS: Amorphous Sediment,Urine Moderate /hpf; Appearance,Urine Turbid (Clear); Bacteria,Urine Occasional /hpf; Bilirubin,Urine Negative (Negative); Blood,Urine Moderate (Negative); Color,Urine Dark Brown; Glucose,Urine (UA) Trace (Negative); Ketones,Urine 1+ (Negative); Leukocyte Esterase,Urine Negative (Negative); Mucus,Urine Many /hpf; Nitrite,Urine Negative (Negative); PH, Urine 5.5 (5.0-8.0); Protein,Urine 2+ (Negative); RBC,Urine 11 /hpf (0-5); Specific Gravity,Urine 1.035 (1.001-1.035); Squamous Epithelial Cell,Urine 7 /hpf (0-4); WBC,Urine 6 /hpf (0-5)
[2022-12-03] MEDS ORDERED: ONDANSETRON 4 MG/2 ML VIAL IVP STA (13:42)
[2022-12-03] MEDS ORDERED: FAMOTIDINE 20 MG/2 ML VIAL IV STA (13:42)
[2022-12-03] MEDS ORDERED: SODIUM CHLORIDE 0.9% 1,000 ML IV ONE (13:43)
[2022-12-03] MEDS ORDERED: MAG HYDROX/AL HYDROX/SIMETH 30 ML, HYOSCYAMINE ELIXIR 10 ML, LIDOCAINE VISCOUS 2% 10 ML PO STA ×3 (13:45)
--- NOTE | 2022-12-03 14:41 | CT ---
EXAMINATION TYPE: CT abdomen pelvis wo con DATE OF EXAM: 12/03/2022 COMPARISON: 03/09/2022 INDICATION: Abdominal pain and vomiting, intermittently for 1 week DLP: 413.2 mGycm, Automated exposure control for dose reduction was used. CONTRAST: 0 mL of Isovue 300. Study performed without Oral Contrast TECHNIQUE: Axial images were obtained from above the diaphragm to the pubic rami in the axial plane a t 5 mm thick sections. Reconstructed images are reviewed on the computer in the coronal plane. FINDINGS: Limited CT sections are obtained the lung bases. The lung bases are clear. CT ABDOMEN: Liver: Normal Spleen: Normal Pancreas: Normal Adrenal glands: The adrenal glands are normal. Gallbladder: Normal Kidneys: No masses are evident. No hydronephrosis is present. No cysts are present. No renal stone s are evident Aorta: Normal Inferior vena cava: Normal. CT PELVIS: Loops of bowel within the abdomen and pelvis are normal. No dilated loops of bowel are evident. S tudy is a lateral contrast limiting bowel evaluation. Appendix: Not identified. No dilated tubular structure or inflammatory changes are evident. Urinary bladder: Compressed and cannot be well evaluated. Genitourinary structures: Uterus may be mildly bulky. Adnexal regions appear normal. Osseous structures: No suspicious lytic or sclerotic lesions. IMPRESSIONS: 1. No suspicious acute changes to account for abdominal pain and vomiting. 2. There may be some mild prominence of the uterus, this can be evaluated with ultrasound.
--- NOTE | 2022-12-03 14:49 | ED ---
Abdominal Pain HPI - General Chief Complaint: Abdominal Pain Stated Complaint: vomiting Time Seen by Provider: 12/03/22 13:32 Source: patient, RN notes reviewed Mode of arrival: ambulatory - History of Present Illness Initial Comments: 42-year-old female presents to the emergency department with a chief complaint of abdominal pain. She locates the abdominal pain as generalized and across her upper abdomen. The pain does not radiate anywhere else. She has been taking her [place] 7.5 without relief. She also reports accompanying symptoms of nausea and vomiting. She denies any hematemesis, hematemesis, fevers, dysuria, hematuria, melena, hematochezia. - Related Data Home Medications Medication Instructions Recorded Confirmed Ondansetron Odt [Zofran ODT] 8 mg PO BID 02/25/22 04/18/22 Previous Rx's Medication Instructions Recorded Pantoprazole Sodium [Protonix] 40 mg PO DAILY 30 Days #30 tab 02/26/22 Prochlorperazine [Compazine] 10 mg PO Q6H PRN #40 tab 02/26/22 Famotidine [Pepcid] 20 mg PO BID #28 tablet 04/18/22 Ketorolac [Toradol] 10 mg PO Q8HR #15 tab 06/25/22 Ondansetron Odt [Zofran Odt] 4 mg PO Q8HR PRN #10 tab 06/25/22 Nitrofurantoin Monohyd/M-Cryst 100 mg PO Q12HR 7 Days #14 cap 12/03/22 [Macrobid] Allergies Allergy/AdvReac Type Severity Reaction Status Date / Time sulfamethoxazole Allergy Rash/Hives Verified 12/03/22 11:33 [From Bactrim] trimethoprim [From Bactrim] Allergy Rash/Hives Verified 12/03/22 11:33 Review of Systems ROS Statement: Those systems with pertinent positive or pertinent negative responses have been documented in the HPI. ROS Other: All systems not noted in ROS Statement are negative. Past Medical History Past Medical History: GERD/Reflux, Hyperlipidemia, Renal Disease Additional Past Medical History / Comment(s): Gastroparesis, gastritis, esophageal tears, chronic low back pain, herniated lower discs, bilateral wrist tendonitis with R side worse, R shoulder pain past couple months, numbness to bilateral hand fingers when first wakes, migraines, instructed to sleep with HOB up 6 inches d/t heart rate dropping with sleep, vertigo, pyelonephritis, History of Any Multi-Drug Resistant Organisms: None Reported Past Surgical History: Appendectomy, Tubal Ligation Additional Past Surgical History / Comment(s): Botox injection "mouth" of stomach-R/T SPASMS , EGDs, colonoscopy, vaginal cyst drained. Past Anesthesia/Blood Transfusion Reactions: No Reported Reaction Additional Past Anesthesia/Blood Transfusion Reaction / Comment(s): Never had blood transfusion. Past Psychological History: Anxiety, Bipolar, Depression Smoking Status: Current every day smoker Past Alcohol Use History: None Reported Past Drug Use History: Marijuana - Past Family History Mother Family Medical History: Cancer Additional Family Medical History / Comment(s): Mother is living. She has had breast cancer and 2 back surgeries. Father Family Medical History: No Reported History Additional Family Medical History / Comment(s): Father had ETOH abuse and was manic depressive. He after a fall where he fractured his back then "drank" himself to . Brother(s) Family Medical History: Neurologic Disorder Sister(s) Family Medical History: No Reported History Son(s) Family Medical History: No Reported History Daughter(s) Family Medical History: No Reported History General Exam General appearance: alert, in no apparent distress Head exam: Present: atraumatic, normocephalic, normal inspection Eye exam: Present: normal appearance, PERRL, EOMI. Absent: scleral icterus, conjunctival injection, periorbital swelling ENT exam: Present: normal exam, mucous membranes moist Neck exam: Present: normal inspection. Absent: tenderness, meningismus, lymphadenopathy Respiratory exam: Present: normal lung sounds bilaterally. Absent: respiratory distress, wheezes, rales, rhonchi, stridor Cardiovascular Exam: Present: regular rate, normal rhythm, normal heart sounds. Absent: systolic murmur, diastolic murmur, rubs, gallop, clicks GI/Abdominal exam: Present: soft, tenderness (generalized), normal bowel sounds. Absent: distended, guarding, rebound, rigid Extremities exam: Present: normal inspection, full ROM, normal capillary refill. Absent: tenderness, pedal edema, joint swelling, calf tenderness Back exam: Present: normal inspection Neurological exam: Present: alert, oriented X3, CN II-XII intact Psychiatric exam: Present: normal affect, normal mood Skin exam: Present: warm, dry, intact, normal color. Absent: rash Course Vital Signs 12/03/22 12/03/22 11:31 13:17 Temperature 97.7 F Pulse Rate 103 H 88 Respiratory 16 18 Rate Blood Pressure 165/113 138/102 O2 Sat by Pulse 92 L 95 Oximetry - Reevaluation(s) Reevaluation #1: 12/03/22 16:27 should reevaluated. Patient updated on results and is agreeable with plan for discharge. Medical Decision Making - Medical Decision Making Was pt. sent in by a medical professional or institution (, PA, ETL INFORMATICA DEVELOPER, urgent care, hospital, or [facility]...) When possible be specific @ -[No] Did you speak to anyone other than the patient for history (EMS, parent, family, police, friend...)? What history was obtained from this source @ -[No] Did you review nursing and triage notes (agree or disagree)? Why? @ -[I reviewed and agree with nursing and triage notes] Were old charts reviewed (outside hosp., previous admission, EMS record, old EKG, old radiological studies, urgent care reports/EKG's, [facility] records)? Report findings @ -[No old charts were reviewed] Differential Diagnosis (chest pain, altered mental status, abdominal pain women, abdominal pain men, vaginal bleeding, weakness, fever, dyspnea, syncope, headache, dizziness, GI bleed, back pain, seizure, CVA, palpatations, mental health)? @ -[not applicable] EKG interpreted by me (3pts min.). @ -[As above] X-rays interpreted by me (1pt min.). @ -[None done] CT interpreted by me (1pt min.). @ -no acute abdominal process U/S interpreted by me (1pt. min.). @ -[None done] What testing was considered but not performed or refused? (CT, X-rays, U/S, labs)? Why? @ -[None] What meds were considered but not given or refused? Why? @ -[None] Did you discuss the management of the patient with other professionals (professionals i.e. , PA, ETL INFORMATICA DEVELOPER, lab, RT, psych nurse, social services technician, academy director, teacher, natural resource officer, top case assembler)? Give summary @ -[No] Was smoking cessation discussed for >3mins.? @ -[No] Was critical care preformed (if so, how long)? @ -[No] Were there social determinants of health that impacted care today? How? (Homelessness, low income, unemployed, alcoholism, drug addiction, transportation, low edu. Level, literacy, decrease access to med. care, half-way, rehab)? @ -[No] Was there de-escalation of care discussed even if they declined (Discuss DNR or withdrawal of care, Hospice)? DNR status @ -[No] What co-morbidities impacted this encounter? (DM, HTN, Smoking, COPD, CAD, Cancer, CVA, ARF, Chemo, Hep., AIDS, mental health diagnosis, sleep apnea, morbid obesity)? @ -[None] Was patient admitted / discharged? Hospital course, mention meds given and route, prescriptions, significant lab abnormalities, going to OR and other pertinent info. @ -42-year-old male presents to the emergency department for abdominal pain. Patient had history and physical performed, physical exam is essentially unremarkable with generalized abdominal tenderness. Patient had lab work and imaging ordered and performed while in the emergency department, workup is essentially unremarkable. I discussed the results in detail with the patient, all questions and concerns were addressed. She was given a GI cocktail, Pepcid, Zofran, Toradol, and until with symptomatic relief in the emergency department. Patient is agreeable with the plan for discharge. The patient was discharged in stable condition with recommended close follow-up with primary care in 1-2 days. . Return precautions were discussed. I discussed the case with BENJIE Holcomb who agrees with the plan of care. Undiagnosed new problem with uncertain prognosis? @ -[No] Drug Therapy requiring intensive monitoring for toxicity (Heparin, Nitro, Insulin, Cardizem)? @ -[No] Were any procedures done? @ -[No] Diagnosis/symptom? @ -Intractable nausea and vomiting abdominal pain Acute, or Chronic, or Acute on Chronic? @ -acute on chronic Uncomplicated (without systemic symptoms) or Complicated (systemic symptoms)? @ -uncomplicated Side effects of treatment? @ -[No] Exacerbation, Progression, or Severe Exacerbation? @ -[No] Poses a threat to life or bodily function? How? (Chest pain, [place], MD, pneumonia, PE, COPD, DKA, ARF, appy, cholecystitis, CVA, Diverticulitis, Homicidal, Suicidal, threat to staff... and all critical care pts) @ -[No] - Lab Data Result diagrams: 12/03/22 13:15 12/03/22 13:15 Lab Results 12/03/22 12/03/22 12/03/22 Range/Units 13:15 13:15 13:15 WBC 7.8 (3.8-10.6) k/uL RBC 4.57 (3.80-5.40) m/uL Hgb 15.2 (11.4-16.0) gm/dL Hct 44.8 (34.0-46.0) % MCV 98.0 (80.0-100.0) fL MCH 33.3 (25.0-35.0) pg MCHC 33.9 (31.0-37.0) g/dL RDW 13.1 (11.5-15.5) % Plt Count 484 H (150-450) k/uL MPV 7.6 Neutrophils % 82 % Lymphocytes % 14 % Monocytes % 2 % Eosinophils % 1 % Basophils % 0 % Neutrophils # 6.4 (1.3-7.7) k/uL Lymphocytes # 1.0 (1.0-4.8) k/uL Monocytes # 0.2 (0-1.0) k/uL Eosinophils # 0.0 (0-0.7) k/uL Basophils # 0.0 (0-0.2) k/uL Sodium 142 (137-145) mmol/L Potassium 4.2 (3.5-5.1) mmol/L Chloride 106 (98-107) mmol/L Carbon Dioxide 20 L (22-30) mmol/L Anion Gap 16 mmol/L BUN 12 (7-17) mg/dL Creatinine 0.82 (0.52-1.04) mg/dL Est GFR (CKD-EPI)AfAm >90 (>60 ml/min/1.73 sqM) Est GFR (CKD-EPI)NonAf 88 (>60 ml/min/1.73 sqM) Glucose 137 H (74-99) mg/dL Calcium 10.6 H (8.4-10.2) mg/dL Total Bilirubin 1.0 (0.2-1.3) mg/dL AST 22 (14-36) U/L ALT 18 (4-34) U/L Alkaline Phosphatase 78 (38-126) U/L Total Protein 9.4 H (6.3-8.2) g/dL Albumin 5.5 H (3.5-5.0) g/dL Amylase 63 (30-110) U/L Lipase 38 (23-300) U/L Urine Color Dark Brown Urine Appearance Turbid H (Clear) Urine pH 5.5 (5.0-8.0) Ur Specific [place] 1.035 (1.001-1.035) Urine Protein 2+ H (Negative) Urine Glucose (UA) Trace H (Negative) Urine Ketones 1+ H (Negative) Urine Blood Moderate H (Negative) Urine Nitrite Negative (Negative) Urine Bilirubin Negative (Negative) Urine Urobilinogen 4.0 (<2.0) mg/dL Ur Leukocyte Esterase Negative (Negative) Urine RBC 11 H (0-5) /hpf Urine WBC 6 H (0-5) /hpf Ur Squamous Epith Cells 7 H (0-4) /hpf Amorphous Sediment Moderate H (None) /hpf Urine Bacteria Occasional H (None) /hpf Urine Mucus Many H (None) /hpf Disposition Clinical Impression: Intractable abdominal pain, Intractable vomiting with nausea Disposition: HOME SELF-CARE Condition: Stable Instructions (If sedation given, give patient instructions): Abdominal Pain (ED) Additional Instructions: He is return to the nearest emergency department if symptoms worsen or persist. Prescriptions: Nitrofurantoin Monohyd/M-Cryst [Macrobid] 100 mg PO Q12HR 7 Days #14 cap Is patient prescribed a controlled substance at d/c from ED?: No Referrals: Jewell Bui MD [Primary Care Provider] - 1-2 days Time of Disposition: 14:50
[2022-12-03] MEDS ORDERED: KETOROLAC 15 MG/ML 1 ML VIAL IVP STA (14:58)
[2022-12-03] MEDS ORDERED: DICYCLOMINE 10 MG/ML 2 ML AMP IM STA (14:59)
== END 2022-12-03 15:19 | disposition home or self-care (01) ==
LOC: EC 11:09
DX: R10.11 Right upper quadrant pain (principal); R10.12 Left upper quadrant pain; R10.84 Generalized abdominal pain; R11.2 Nausea with vomiting, unspecified; F17.200 Nicotine dependence, unspecified, uncomplicated; F12.90 Cannabis use, unspecified, uncomplicated; Z90.89 Acquired absence of other organs; Z98.51 Tubal ligation status; Z88.2 Allergy status to sulfonamides; Z88.8 Allergy status to other drugs, medicaments and biological substances
CPT/HCPCS: 36415; 80053; 82150; 83690; 85025; 81001; 74176; 99284; 96374; 96375; 96361; 96372; J0500; J2405; J1885

== ENCOUNTER 2023-05-12 07:44 | Observation (INO) | payer MEDICARE ==
[2023-05-12] MEDS ORDERED: FAMOTIDINE 20 MG/2 ML VIAL IV STA (08:15)
[2023-05-12] MEDS ORDERED: SODIUM CHLORIDE 0.9% 1,000 ML IV STA (08:15)
[2023-05-12] MEDS ORDERED: KETOROLAC 15 MG/ML 1 ML VIAL IVP STA (08:15)
[2023-05-12] MEDS ORDERED: METOCLOPRAMIDE 5 MG/ML 2 ML VIAL IVP STA (08:15)
--- NOTE | 2023-05-12 08:19 | ED ---
Nausea/Vomiting/Diarrhea HPI - General Chief complaint: Nausea/Vomiting/Diarrhea Stated complaint: vomiting Time Seen by Provider: 05/12/23 08:03 Source: patient, RN notes reviewed Mode of arrival: wheelchair Limitations: no limitations - History of Present Illness Initial comments: This is a 43-year-old female who presents to the emergency department for nausea and vomiting. States that this started at around 1 AM today. Believes that this is related to her gastroparesis. Also reports generalized pain in the left mid to lower abdomen that she states is common for her as a result of her menstrual cycles. She has Zofran at home, but states that this has not been effective. Denies any fevers, chills, sick contacts, or new foods. Also denies any changes in bowel or bladder habits. Denies any fevers, chills, sore throat, cough, dyspnea, chest pain, palpitations, diarrhea, back pain, or headaches. MD complaint: nausea, vomiting, abdominal pain - Related Data Home Medications Medication Instructions Recorded Confirmed HYDROcodone/APAP 7.5-325MG [[place] 1 tab PO BID PRN 05/12/23 05/12/23 7.5-325] Pseudoephedrine 12Hr [Sudafed 12 120 mg PO Q12HR PRN 05/12/23 05/12/23 Hour] Previous Rx's Medication Instructions Recorded Pantoprazole Sodium [Protonix] 40 mg PO DAILY 30 Days #30 tab 02/26/22 Allergies Allergy/AdvReac Type Severity Reaction Status Date / Time sulfamethoxazole Allergy Rash/Hives Verified 05/12/23 12:28 [From Bactrim] trimethoprim [From Bactrim] Allergy Rash/Hives Verified 05/12/23 12:28 Review of Systems ROS Statement: Those systems with pertinent positive or pertinent negative responses have been documented in the HPI. ROS Other: All systems not noted in ROS Statement are negative. Past Medical History Past Medical History: GERD/Reflux, Hyperlipidemia, Renal Disease Additional Past Medical History / Comment(s): Gastroparesis, gastritis, esophageal tears, chronic low back pain, herniated lower discs, bilateral wrist tendonitis with R side worse, R shoulder pain past couple months, numbness to bilateral hand fingers when first wakes, migraines, instructed to sleep with HOB up 6 inches d/t heart rate dropping with sleep, vertigo, pyelonephritis, History of Any Multi-Drug Resistant Organisms: None Reported Past Surgical History: Appendectomy, Tubal Ligation Additional Past Surgical History / Comment(s): Botox injection "mouth" of stomach-R/T SPASMS , EGDs, colonoscopy, vaginal cyst drained. Past Anesthesia/Blood Transfusion Reactions: No Reported Reaction Additional Past Anesthesia/Blood Transfusion Reaction / Comment(s): Never had blood transfusion. Past Psychological History: Anxiety, Bipolar, Depression Smoking Status: Current every day smoker Past Alcohol Use History: None Reported Past Drug Use History: Marijuana - Past Family History Mother Family Medical History: Cancer Additional Family Medical History / Comment(s): Mother is living. She has had breast cancer and 2 back surgeries. Father Family Medical History: No Reported History Additional Family Medical History / Comment(s): Father had ETOH abuse and was manic depressive. He after a fall where he fractured his back then "drank" himself to . Brother(s) Family Medical History: Neurologic Disorder Sister(s) Family Medical History: No Reported History Son(s) Family Medical History: No Reported History Daughter(s) Family Medical History: No Reported History General Exam Limitations: no limitations General appearance: alert, in distress Head exam: Present: atraumatic, normocephalic, normal inspection Respiratory exam: Present: normal lung sounds bilaterally. Absent: respiratory distress, wheezes, rales, rhonchi, stridor Cardiovascular Exam: Present: regular rate, normal rhythm, normal heart sounds. Absent: systolic murmur, diastolic murmur, rubs, gallop, clicks GI/Abdominal exam: Present: soft, tenderness (left mid abdomen), normal bowel sounds. Absent: distended Neurological exam: Present: alert, oriented X3, CN II-XII intact Psychiatric exam: Present: normal affect, normal mood Skin exam: Present: warm, dry, intact, normal color. Absent: rash Course Vital Signs 05/12/23 08:01 Temperature 97.8 F Pulse Rate 113 H Respiratory 22 Rate Blood Pressure 128/87 O2 Sat by Pulse 94 L Oximetry Medical Decision Making - Medical Decision Making This is a 43-year-old female who presents to the emergency department for abdominal pain, nausea, and vomiting. Was pt. sent in by a medical professional or institution? @ -No Did you speak to anyone other than the patient for history? @ -No Did you review nursing and triage notes? @ -Yes, and I agree, it is accurate with regards to the patient's symptoms. Were old charts reviewed? @ -No Differential Diagnosis? @ -Differential Abdominal Pain Women: Cholecystitis, diverticulosis, ischemic bowel, pancreatitis, hepatitis, UTI, gastroenteritis, AAA, incarcerated hernia, bowel obstruction, constipation, inflammatory bowel, hepatitis, peptic ulcer disease, splenic infarction, perforated viscus, vulvitis, ovarian torsion, PID, kidney stone, placenta abruption, this is not meant to be an all-inclusive list EKG interpreted by me (3pts min.)? @ -EKG interpreted by me demonstrating the following: X-rays interpreted by me (1pt min.)? @ -Not obtained CT interpreted by me (1pt min.)? @ -Not obtained U/S interpreted by me (1pt. min.)? @ -Not obtained What testing was considered but not performed? (CT, X-rays, U/S, labs)? Why? @ -None What meds were considered but not given? Why? @ -None Did you discuss the management of the patient with other professionals? @ -Yes, Dr. Gibson, who accepts the patient for admission. Did you reconcile home meds? @ -No Was smoking cessation discussed for >3mins.? @ -No Was critical care preformed (if so, how long)? @ -No Were there social determinants of health that impacted care today? How? (Homelessness, low income, unemployed, alcoholism, drug addiction, transportation, low edu. Level, literacy, decrease access to med. care, longterm, rehab)? @ -No Was there de-escalation of care discussed even if they declined? (Discuss DNR or withdrawal of care, Hospice)? @ -No What co-morbidities impacted this encounter? (DM, HTN, Smoking, COPD, CAD, Cancer, CVA, Hep., AIDS, mental health diagnosis, sleep apnea, morbid obesity)? @ -Gastroparesis, GERD Was patient admitted / discharged? @ -Admitted. Lab work obtained revealing a leukocytosis and elevated lactic acid, likely reactive to the nausea and vomiting, as well as dehydration. ALLYSON is also present. I suspect that the patient is an undiagnosed diabetic. She has a sugar of 204 despite repetitive nausea and vomiting. She was told that she had gestational diabetes and it was possible that this may progress to diabetes later on. This may also be the culprit for the gastroparesis. She does not meet DKA criteria, as her sugar is 204 and bicarb is 21. She was given a liter bolus of IV fluids, Toradol, Pepcid, and Reglan initially. She continued to complain of severe pain and nausea. She attributed the pain to being on her period. She was subsequently given a dose of Dilaudid and Zofran for her symptoms, which was only temporarily effective. We discussed imaging of her abdomen, however she declined, as she states that she's had multiple CT scans both here and at other facilities. She is also fairly certain that the pain is related to her period. Given her intractable nausea and vomiting with severe dehydration on her blood work, patient admitted to medicine for further management. Hemoglobin A1c was added onto lab work for further evaluation of elevated blood sugar. She was started on maintenance fluids at 130 mL/hour. Undiagnosed new problem with uncertain prognosis? @ -None Drug Therapy requiring intensive monitoring for toxicity (Heparin, Nitro, Insulin, Cardizem)? @ -None Were any procedures done? @ -None Diagnosis/symptom? @ -ALLYSON, abdominal pain, intractable nausea and vomiting Acute, or Chronic, or Acute on Chronic? @ -Acute Uncomplicated (without systemic symptoms) or Complicated (systemic symptoms)? @ -Complicated Side effects of treatment? @ -None Exacerbation, Progression, or Severe Exacerbation] @ -Not applicable Poses a threat to life or bodily function? @ -Yes This case was discussed in detail with the attending ED physician, Dr. Wilks. Presentation, findings, and treatment plan discussed in detail as well. - Lab Data Result diagrams: 05/12/23 08:25 05/12/23 08:53 Lab Results 05/12/23 05/12/23 05/12/23 Range/Units 08:25 08:25 08:47 WBC 14.0 H (3.8-10.6) k/uL RBC 4.79 (3.80-5.40) m/uL Hgb 16.2 H (11.4-16.0) gm/dL Hct 47.9 H (34.0-46.0) % MCV 100.0 (80.0-100.0) fL MCH 33.8 (25.0-35.0) pg MCHC 33.8 (31.0-37.0) g/dL RDW 12.4 (11.5-15.5) % Plt Count 534 H (150-450) k/uL MPV 7.7 Neutrophils % 89 % Lymphocytes % 7 % Monocytes % 3 % Eosinophils % 1 % Basophils % 0 % Neutrophils # 12.4 H (1.3-7.7) k/uL Lymphocytes # 0.9 L (1.0-4.8) k/uL Monocytes # 0.5 (0-1.0) k/uL Eosinophils # 0.1 (0-0.7) k/uL Basophils # 0.0 (0-0.2) k/uL Sodium (137-145) mmol/L Potassium (3.5-5.1) mmol/L Chloride (98-107) mmol/L Carbon Dioxide (22-30) mmol/L Anion Gap mmol/L BUN (7-17) mg/dL Creatinine (0.52-1.04) mg/dL Est GFR (CKD-EPI)AfAm (>60 ml/min/1.73 sqM) Est GFR (CKD-EPI)NonAf (>60 ml/min/1.73 sqM) Glucose (74-99) mg/dL Lactic Ac Sepsis Rflx Y Plasma Lactic Acid Jose 3.3 H* (0.7-2.0) mmol/L Calcium (8.4-10.2) mg/dL Total Bilirubin (0.2-1.3) mg/dL AST (14-36) U/L ALT (4-34) U/L Alkaline Phosphatase (38-126) U/L Total Protein (6.3-8.2) g/dL Albumin (3.5-5.0) g/dL Amylase (30-110) U/L Lipase (23-300) U/L 05/12/23 Range/Units 08:53 WBC (3.8-10.6) k/uL RBC (3.80-5.40) m/uL Hgb (11.4-16.0) gm/dL Hct (34.0-46.0) % MCV (80.0-100.0) fL MCH (25.0-35.0) pg MCHC (31.0-37.0) g/dL RDW (11.5-15.5) % Plt Count (150-450) k/uL MPV Neutrophils % % Lymphocytes % % Monocytes % % Eosinophils % % Basophils % % Neutrophils # (1.3-7.7) k/uL Lymphocytes # (1.0-4.8) k/uL Monocytes # (0-1.0) k/uL Eosinophils # (0-0.7) k/uL Basophils # (0-0.2) k/uL Sodium 145 (137-145) mmol/L Potassium 3.9 (3.5-5.1) mmol/L Chloride 106 (98-107) mmol/L Carbon Dioxide 21 L (22-30) mmol/L Anion Gap 18 mmol/L BUN 16 (7-17) mg/dL Creatinine 1.40 H (0.52-1.04) mg/dL Est GFR (CKD-EPI)AfAm 53 (>60 ml/min/1.73 sqM) Est GFR (CKD-EPI)NonAf 46 (>60 ml/min/1.73 sqM) Glucose 204 H (74-99) mg/dL Lactic Ac Sepsis Rflx Plasma Lactic Acid Jose (0.7-2.0) mmol/L Calcium 10.6 H (8.4-10.2) mg/dL Total Bilirubin 1.1 (0.2-1.3) mg/dL AST 23 (14-36) U/L ALT 21 (4-34) U/L Alkaline Phosphatase 84 (38-126) U/L Total Protein 9.5 H (6.3-8.2) g/dL Albumin 5.5 H (3.5-5.0) g/dL Amylase 87 (30-110) U/L Lipase 42 (23-300) U/L Disposition Clinical Impression: Intractable nausea and vomiting, Dehydration, ALLYSON (acute kidney injury) Disposition: ADMITTED IP TO THIS HOSP
[2023-05-12 08:33] LABS: Basophils % (A) 0 %; Eosinophils # (A) 0.1 k/uL (0-0.7); Eosinophils % (A) 1 %; HCT 47.9 % (34.0-46.0); HGB 16.2 gm/dL (11.4-16.0); Lymphocytes # (A) 0.9 k/uL (1.0-4.8); Lymphocytes % (A) 7 %; MCH 33.8 pg (25.0-35.0); MCHC 33.8 g/dL (31.0-37.0); Mean Platelet Volume 7.7; Monocytes # (A) 0.5 k/uL (0-1.0); Monocytes % (A) 3 %; Neutrophils # (A) 12.4 k/uL (1.3-7.7); Neutrophils % (A) 89 %; Platelet Count 534 k/uL (150-450); RBC 4.79 m/uL (3.80-5.40); RDW 12.4 % (11.5-15.5)
[2023-05-12] MEDS ORDERED: ONDANSETRON 4 MG/2 ML VIAL IVP STA (08:59)
[2023-05-12] MEDS ORDERED: HYDROmorphone 1 MG/ML 1 ML SYRINGE IVP STA ×2 (08:59→11:18)
[2023-05-12 09:16] LABS: ALT 21 U/L (4-34); AST 23 U/L (14-36); African American GFR (CKD) 53 (>60 ml/min/1.73 sqM); Albumin 5.5 g/dL (3.5-5.0); Alkaline Phosphatase 84 U/L (38-126); Amylase 87 U/L (30-110); Anion Gap 18 mmol/L; Blood Urea Nitrogen 16 mg/dL (7-17); Calcium 10.6 mg/dL (8.4-10.2); Carbon Dioxide 21 mmol/L (22-30); Chloride 106 mmol/L (98-107); Glucose 204 mg/dL (74-99); Lipase 42 U/L (23-300); Non-African American GFR(CKD) 46 (>60 ml/min/1.73 sqM); Potassium 3.9 mmol/L (3.5-5.1); Sodium 145 mmol/L (137-145); Total Bilirubin 1.1 mg/dL (0.2-1.3); Total Protein 9.5 g/dL (6.3-8.2)
[2023-05-12] MEDS ORDERED: PROCHLORPERAZINE INJ 10 MG/2 ML VIAL IVP STA (10:30)
[2023-05-12] MEDS ORDERED: HYDROmorphone 0.5 MG/0.5 ML SYRINGE IVP PRN (11:56)
[2023-05-12] MEDS ORDERED: NALOXONE 0.4 MG/ML 1 ML VIAL IV PRN (11:56)
[2023-05-12] MEDS ORDERED: ACETAMINOPHEN TAB 325 MG TAB PO PRN (11:56)
[2023-05-12] MEDS ORDERED: HYDROmorphone 1 MG/ML 1 ML SYRINGE IVP PRN (11:56)
[2023-05-12] MEDS ORDERED: KETOROLAC 15 MG/ML 1 ML VIAL IVP PRN (11:56)
[2023-05-12] MEDS ORDERED: IBUPROFEN 400 MG TAB PO PRN (11:56)
[2023-05-12] MEDS ORDERED: METOCLOPRAMIDE 5 MG/ML 2 ML VIAL IVP PRN (11:57)
[2023-05-12] MEDS ORDERED: PANTOPRAZOLE 40 MG/10 ML VIAL IVP STA (12:41)
[2023-05-12] MEDS: SODIUM CHLORIDE 0.9% 1,000 ML IV SCH ×2 (13:03→20:27)
[2023-05-12] MEDS ORDERED: HYDROcodone/APAP 7.5-325MG 1 EACH TAB PO PRN (15:54)
[2023-05-12] MEDS ORDERED: PSEUDOEPHEDRINE 12HR 120 MG TABLET.ER PO PRN (15:54)
[2023-05-12] MEDS ORDERED: ALPRAZolam 0.25 MG TAB PO PRN (15:55)
[2023-05-12] MEDS ORDERED: TEMAZEPAM 15 MG CAP PO PRN (15:55)
--- NOTE | 2023-05-12 16:39 | HP ---
HISTORY AND PHYSICAL CHIEF COMPLAINT: Nausea and vomiting. HISTORY OF PRESENT ILLNESS: This is a 43-year-old woman with a past medical history of multiple medical problems including gastroparesis and gastritis, complaining of significant nausea and vomiting for the past several days. The patient is unable to keep anything down. The patient was complaining of abdominal pain. There is no history of any fever, rigor, or chills. The patient reports cyclical activity along with her periods PAST MEDICAL HISTORY: Reviewed includes GERD, hypertension, and gastroparesis. Rest of the history and rest of the chart are also reviewed. HOME MEDICATIONS: Reviewed include [place] 7.5 mg. ALLERGIES: Reviewed include Bactrim. FAMILY HISTORY: History of cancer in the family. SOCIAL HISTORY: History of smoking. History of THC. REVIEW OF SYSTEMS: Fourteen-point review is negative except as mentioned earlier. PHYSICAL EXAMINATION: VITAL SIGNS: Pulse is 82, blood pressure 134/70, respirations 17. HEENT: Conjunctivae are normal. Oral mucosa is dry. NECK: No jugular venous distention. CARDIOVASCULAR: S1 and S2. RESPIRATORY: Clear to auscultation. ABDOMEN: Soft. Minimal diffuse tenderness in the epigastrium. No guarding. No rigidity. No masses palpable. LEGS: No edema. NERVOUS SYSTEM: No focal deficits. LABORATORY DATA: Reviewed. ASSESSMENT: 1. Recurrent nausea and vomiting, possible acute gastroparesis acute exacerbation and cyclical vomiting. 2. Dehydration present on admission. 3. Elevated WBC. 4. Hyperlipidemia. 5. History of gastroesophageal reflux disease. 6. Multiple medical issues. RECOMMENDATIONS AND DISCUSSION: In this 43-year-old woman presented with multiple complex medical issues, I would recommend the patient to be admitted. The patient will require more than 2 nights to treat and stabilize the patient. At this time, I would also recommend symptomatic treatment and THC avoidance. Otherwise, we will closely monitor. Further recommendations to follow. See orders for the details. Home medications will be continued once they are confirmed. MMODL / IJN: [id number] / MTDD
[2023-05-12 18:34] LABS: Appearance,Urine Cloudy (Clear); Bacteria,Urine Rare /hpf; Bilirubin,Urine Negative (Negative); Blood,Urine Small (Negative); Color,Urine Orange; Glucose,Urine (UA) Trace (Negative); Granular Casts,Urine 5 /lpf (0); Hyaline Casts,Urine 68 /lpf (0-2); Leukocyte Esterase,Urine Negative (Negative); Mucus,Urine Many /hpf; Nitrite,Urine Negative (Negative); PH, Urine 5.5 (5.0-8.0); Protein,Urine 2+ (Negative); RBC,Urine 10 /hpf (0-5); Specific Gravity,Urine 1.034 (1.001-1.035); Squamous Epithelial Cell,Urine 9 /hpf (0-4); WBC,Urine 7 /hpf (0-5)
[2023-05-12 18:35] LABS: Ketones,Urine 2+ (Negative)
[2023-05-12] MEDS: PANTOPRAZOLE 40 MG/10 ML VIAL IVP SCH (20:27)
[2023-05-12] MEDS: ONDANSETRON 4 MG/2 ML VIAL IVP PRN (20:29)
[2023-05-13] MEDS ORDERED: HYDROmorphone 1 MG/ML 1 ML SYRINGE ONE (00:15)
[2023-05-13] MEDS: SODIUM CHLORIDE 0.9% 1,000 ML IV SCH ×2 (06:02→12:44)
[2023-05-13] MEDS: ONDANSETRON 4 MG/2 ML VIAL IVP PRN (08:23)
[2023-05-13] MEDS: PANTOPRAZOLE 40 MG/10 ML VIAL IVP SCH (08:24)
[2023-05-13 08:44] VITALS: BP 114/57; PULSE 82; RESP 17; TEMP 98.4
--- NOTE | 2023-05-14 06:16 | P.DS ---
Providers Date of admission: 05/12/23 12:11 Expected date of discharge: 05/13/23 Attending physician: Tom Gibson MD Primary care physician: Ramya Corcoran Hospital Course: Final diagnosis Recurrent nausea and vomiting, possible acute gastroparesis exacerbation and cyclical vomiting Dehydration, present on admission Elevated WBC, most likely reactive Hyperlipidemia History of GERD Continue THC use GI prophylaxis Full code DischargO"e disposition Patient is being discharged in a stable condition with guarded prognosis to home. Patient will follow-up with Dr. Bui in the outpatient setting upon discharge. Patient is to continue with Reglan if needed and outpatient follow- up with GI. Total time taken is greater than 35 minutes. Hospital course This is a 43-year-old female who was recently admitted with nausea vomiting and dehydration and being closely monitored. Patient was maintained on dietary nausea medication along with IV hydration showing some improvement and able to tolerate breakfast today. Strongly encouraged the patient to avoid marijuana use and follow-up outpatient with primary care provider along with GI. Currently no reports of chest pain, shortness of breath, or palpitations. Patient is afebrile. No reports of nausea or vomiting and patient is tolerating diet. Patient will be discharged home today. guarded prognosis and high risk for readmissions given patient's continue THC use Physical exam: Gen: This is a 43-year-old female who is awake, alert and oriented 3, thin built HEENT: Head is atraumatic, normocephalic. Pupils equal, round. Sclerae is anicteric. NECK: Supple. No JVD. No lymphadenopathy. No thyromegaly. LUNGS: Clear to auscultation. No wheezes or rhonchi. No intercostal retractions. HEART: Regular rate and rhythm. No murmur. ABDOMEN: Soft. Bowel sounds are present. No masses. No tenderness. EXTREMITIES: No pedal edema. No calf tenderness. NEUROLOGICAL: Patient is awake, alert and oriented x3. Cranial nerves 2 through 12 are grossly intact. Please refer to medication reconciliation sheet for a list of medications. The impression and plan of care has been dictated by Moriah Poe, Nurse Practitioner as directed. Dr. Serge MD I have performed a history and examination and MDM of this patient, discussed the same with the dictator, and agree with the dictator's assessment and plan as written ,documented as a scribe. Based on total visit time, I have performed more than 50% of the visit. Patient Condition at Discharge: Fair Plan - Discharge Summary New Discharge Prescriptions: New Metoclopramide [Reglan] 10 mg PO TID PRN #15 tab PRN Reason: Nausea Continue HYDROcodone/APAP 7.5-325MG [[place] 7.5-325] 1 tab PO BID PRN PRN Reason: Pain Pseudoephedrine 12Hr [Sudafed 12 Hour] 120 mg PO Q12HR PRN PRN Reason: Congestion Pantoprazole Sodium [Protonix] 40 mg PO DAILY 30 Days #30 tab Discharge Medication List Pantoprazole Sodium [Protonix] 40 mg PO DAILY 30 Days #30 tab 02/26/22 [Rx] HYDROcodone/APAP 7.5-325MG [[place] 7.5-325] 1 tab PO BID PRN 05/12/23 [History] Pseudoephedrine 12Hr [Sudafed 12 Hour] 120 mg PO Q12HR PRN 05/12/23 [History] Metoclopramide [Reglan] 10 mg PO TID PRN #15 tab 05/13/23 [Rx] Follow up Appointment(s)/Referral(s): Jewell Bui MD [Primary Care Provider] - 1-2 days Activity/Diet/Wound Care/Special Instructions: Activity Limited until follow-up Continue bland diet and slowly advance as tolerated Avoid marijuana use Follow-up with primary care provider on discharge Discharge Disposition: HOME SELF-CARE
== END 2023-05-13 13:33 | disposition home or self-care (01) ==
LOC: EC 07:44 → 6NMEDSUR 12:11
PROVIDERS: ADMIT Internal Medicine; ATTEND Internal Medicine
DX: E86.0 Dehydration (principal); R11.2 Nausea with vomiting, unspecified; D72.829 Elevated white blood cell count, unspecified; R10.9 Unspecified abdominal pain; R42 Dizziness and giddiness; E78.5 Hyperlipidemia, unspecified; K21.9 Gastro-esophageal reflux disease without esophagitis; Z79.899 Other long term (current) drug therapy; Z88.2 Allergy status to sulfonamides; K31.84 Gastroparesis; G89.29 Other chronic pain; M54.50 Low back pain, unspecified; M77.9 Enthesopathy, unspecified; G43.909 Migraine, unspecified, not intractable, without status migrainosus; N12 Tubulo-interstitial nephritis, not specified as acute or chronic; Z90.49 Acquired absence of other specified parts of digestive tract; Z98.51 Tubal ligation status; Z98.890 Other specified postprocedural states; F41.9 Anxiety disorder, unspecified; F31.9 Bipolar disorder, unspecified; F17.200 Nicotine dependence, unspecified, uncomplicated; Z80.3 Family history of malignant neoplasm of breast; Z81.8 Family history of other mental and behavioral disorders; Z81.1 Family history of alcohol abuse and dependence; Z82.0 Family history of epilepsy and other diseases of the nervous system; I10 Essential (primary) hypertension
CPT/HCPCS: 96376 ×3; 96374; 96375; 99285; 36415; 80053; 82150; 83605; 83690; 85025; 81001; 83036; G0378 ×2; J0780; J2765; J2405 ×2; J1170; J1885; C9113 ×2

== ENCOUNTER 2023-06-13 09:08 | Emergency (ER) | payer MEDICARE ==
[2023-06-13] MEDS ORDERED: diphenhydrAMINE 50 MG/ML 1 ML VIAL IVP STA ×2 (09:26→10:55)
[2023-06-13] MEDS ORDERED: droPERidol 5 MG/2 ML VIAL IVP ONE (09:26)
[2023-06-13] MEDS ORDERED: SODIUM CHLORIDE 0.9% 2,000 ML IV STA (09:26)
[2023-06-13] MEDS ORDERED: FAMOTIDINE 20 MG/2 ML VIAL IV STA (09:27)
[2023-06-13] MEDS ORDERED: KETOROLAC 15 MG/ML 1 ML VIAL IVP STA (09:29)
--- NOTE | 2023-06-13 09:37 | ED ---
Nausea/Vomiting/Diarrhea HPI - General Chief complaint: Nausea/Vomiting/Diarrhea Stated complaint: Vomiting Time Seen by Provider: 06/13/23 09:17 Source: patient, RN notes reviewed Mode of arrival: wheelchair Limitations: no limitations - History of Present Illness Initial comments: This is a 43-year-old female presents emergency Department chief complaint of nausea vomiting diarrhea. Patient has recurrent symptoms has been seen recently admitted several times. Patient diagnosed with gastroparesis, can't wait induced hyperemesis. Patient complains of diffuse abdominal discomfort states it is burning into her chest and acid. Patient states that she's not been able to keep anything down since yesterday afternoon. She denies any hematemesis, he matochezia or melena. Patient denies any dysuria or hematuria. - Related Data Home Medications Medication Instructions Recorded Confirmed HYDROcodone/APAP 7.5-325MG [[place] 1 tab PO BID PRN 05/12/23 05/12/23 7.5-325] Pseudoephedrine 12Hr [Sudafed 12 120 mg PO Q12HR PRN 05/12/23 05/12/23 Hour] Previous Rx's Medication Instructions Recorded Pantoprazole Sodium [Protonix] 40 mg PO DAILY 30 Days #30 tab 02/26/22 Metoclopramide [Reglan] 10 mg PO TID PRN #15 tab 05/13/23 Metoclopramide [Reglan] 10 mg PO TID PRN #15 tab 06/13/23 Allergies Allergy/AdvReac Type Severity Reaction Status Date / Time sulfamethoxazole Allergy Rash/Hives Verified 06/13/23 09:13 [From Bactrim] trimethoprim [From Bactrim] Allergy Rash/Hives Verified 06/13/23 09:13 Review of Systems ROS Statement: Those systems with pertinent positive or pertinent negative responses have been documented in the HPI. ROS Other: All systems not noted in ROS Statement are negative. Past Medical History Past Medical History: GERD/Reflux, Hyperlipidemia, Renal Disease Additional Past Medical History / Comment(s): Gastroparesis, gastritis, esophageal tears, chronic low back pain, herniated lower discs, bilateral wrist tendonitis with R side worse, R shoulder pain past couple months, numbness to bilateral hand fingers when first wakes, migraines, instructed to sleep with HOB up 6 inches d/t heart rate dropping with sleep, vertigo, pyelonephritis, History of Any Multi-Drug Resistant Organisms: None Reported Past Surgical History: Appendectomy, Tubal Ligation Additional Past Surgical History / Comment(s): Botox injection "mouth" of stomach-R/T SPASMS , EGDs, colonoscopy, vaginal cyst drained. Past Anesthesia/Blood Transfusion Reactions: No Reported Reaction Additional Past Anesthesia/Blood Transfusion Reaction / Comment(s): Never had blood transfusion. Past Psychological History: Anxiety, Bipolar, Depression Smoking Status: Current every day smoker Past Alcohol Use History: None Reported Past Drug Use History: Marijuana - Past Family History Mother Family Medical History: Cancer Additional Family Medical History / Comment(s): Mother is living. She has had breast cancer and 2 back surgeries. Father Family Medical History: No Reported History Additional Family Medical History / Comment(s): Father had ETOH abuse and was manic depressive. He after a fall where he fractured his back then "drank" himself to . Brother(s) Family Medical History: Neurologic Disorder Sister(s) Family Medical History: No Reported History Son(s) Family Medical History: No Reported History Daughter(s) Family Medical History: No Reported History General Exam Limitations: no limitations General appearance: alert, in no apparent distress Head exam: Present: atraumatic, normocephalic, normal inspection Eye exam: Present: normal appearance, PERRL, EOMI. Absent: scleral icterus, conjunctival injection, periorbital swelling Neck exam: Present: normal inspection. Absent: tenderness, meningismus, lymphadenopathy Respiratory exam: Present: normal lung sounds bilaterally. Absent: respiratory distress, wheezes, rales, rhonchi, stridor Cardiovascular Exam: Present: regular rate, normal rhythm, normal heart sounds. Absent: systolic murmur, diastolic murmur, rubs, gallop, clicks GI/Abdominal exam: Present: soft, tenderness (Diffuse), normal bowel sounds. Absent: distended, guarding, rebound, rigid Back exam: Absent: CVA tenderness (R), CVA tenderness (L) Neurological exam: Present: alert Course Vital Signs 06/13/23 06/13/23 06/13/23 09:13 10:25 11:12 Temperature 98.9 F 98.8 F Pulse Rate 103 H 87 89 Respiratory 18 17 17 Rate Blood Pressure 130/88 120/81 132/72 O2 Sat by Pulse 97 98 97 Oximetry 06/13/23 06/13/23 12:20 13:03 Temperature 98.7 F 98.8 F Pulse Rate 91 93 Respiratory 17 18 Rate Blood Pressure 98/68 106/66 O2 Sat by Pulse 96 96 Oximetry Medical Decision Making - Medical Decision Making Was pt. sent in by a medical professional or institution (, [facility], PRIMARY HEALTH CARE NURSE, urgent care, hospital, or long-term...) When possible be specific @ -No Did you speak to anyone other than the patient for history (EMS, parent, family, police, friend...)? What history was obtained from this source @ -No Did you review nursing and triage notes (agree or disagree)? Why? @ -I reviewed and agree with nursing and triage notes Were old charts reviewed (outside hosp., previous admission, EMS record, old EKG, old radiological studies, urgent care reports/EKG's, long-term records)? Report findings @ -Review prior admissions, laboratory studies and consultations Differential Diagnosis (chest pain, altered mental status, abdominal pain women, abdominal pain men, vaginal bleeding, weakness, fever, dyspnea, syncope, headache, dizziness, GI bleed, back pain, seizure, CVA, palpatations, mental health, musculoskeletal)? @ -Nausea vomiting, gastroparesis, cannabis and is hyperemesis EKG interpreted by me (3pts min.). @ -As above X-rays interpreted by me (1pt min.). @ -None done CT interpreted by me (1pt min.). @ -None done U/S interpreted by me (1pt. min.). @ -None done What testing was considered but not performed or refused? (CT, X-rays, U/S, labs)? Why? @ -None What meds were considered but not given or refused? Why? @ -None Did you discuss the management of the patient with other professionals (professionals i.e. , [facility], PRIMARY HEALTH CARE NURSE, lab, RT, psych nurse, clinical social work aide, freight rate analyst, teacher, account officer, case worker)? Give summary @ -No Was smoking cessation discussed for >3mins.? @ -No Was critical care preformed (if so, how long)? @ -No Were there social determinants of health that impacted care today? How? (Ho melessness, low income, unemployed, alcoholism, drug addiction, transportation, low edu. Level, literacy, decrease access to med. care, long-term, rehab)? @ -No Was there de-escalation of care discussed even if they declined (Discuss DNR or withdrawal of care, Hospice)? DNR status @ -No What co-morbidities impacted this encounter? (DM, HTN, Smoking, COPD, CAD, Cancer, CVA, ARF, Chemo, Hep., AIDS, mental health diagnosis, sleep apnea, morbid obesity)? @ -Gastroparesis Was patient admitted / discharged? Hospital course, mention meds given and route, prescriptions, significant lab abnormalities, going to OR and other pertinent info. @ -Discharge patient was well hydrated, ultrasound was reviewed patient feels improved after antiemetics she's had no recurrent vomiting patient is stable for discharge he has no localized abdominal pain. Undiagnosed new problem with uncertain prognosis? @ -No Drug Therapy requiring intensive monitoring for toxicity (Heparin, Nitro, Insulin, Cardizem)? @ -No Were any procedures done? @ -No Diagnosis/symptom? @ -Cannabis induced hyperemesis, dehydration Acute, or Chronic, or Acute on Chronic? @ -Acute Uncomplicated (without systemic symptoms) or Complicated (systemic symptoms)? @ -Uncomplicated Side effects of treatment? @ -No Exacerbation, Progression, or Severe Exacerbation? @ -No Poses a threat to life or bodily function? How? (Chest pain, [place], [place], pneumonia, PE, COPD, DKA, ARF, appy, cholecystitis, CVA, Diverticulitis, Homicidal, Suicidal, threat to staff... and all critical care pts) @ -No - Lab Data Result diagrams: 06/13/23 09:30 06/13/23 09:30 Lab Results 06/13/23 06/13/23 06/13/23 Range/Units 09:30 09:30 09:30 WBC 15.3 H (3.8-10.6) k/uL RBC 4.64 (3.80-5.40) m/uL Hgb 16.0 (11.4-16.0) gm/dL Hct 47.2 H (34.0-46.0) % MCV 101.9 H (80.0-100.0) fL MCH 34.5 (25.0-35.0) pg MCHC 33.8 (31.0-37.0) g/dL RDW 12.4 (11.5-15.5) % Plt Count 442 (150-450) k/uL MPV 8.1 Neutrophils % 92 % Lymphocytes % 4 % Monocytes % 2 % Eosinophils % 2 % Basophils % 0 % Neutrophils # 14.1 H (1.3-7.7) k/uL Lymphocytes # 0.7 L (1.0-4.8) k/uL Monocytes # 0.3 (0-1.0) k/uL Eosinophils # 0.2 (0-0.7) k/uL Basophils # 0.0 (0-0.2) k/uL Sodium 145 (137-145) mmol/L Potassium 4.5 (3.5-5.1) mmol/L Chloride 103 (98-107) mmol/L Carbon Dioxide 20 L (22-30) mmol/L Anion Gap 22 mmol/L BUN 15 (7-17) mg/dL Creatinine 1.58 H (0.52-1.04) mg/dL Est GFR (CKD-EPI)AfAm 46 (>60 ml/min/1.73 sqM) Est GFR (CKD-EPI)NonAf 40 (>60 ml/min/1.73 sqM) Glucose 186 H (74-99) mg/dL Calcium 10.7 H (8.4-10.2) mg/dL Magnesium 1.8 (1.6-2.3) mg/dL Total Bilirubin 1.0 (0.2-1.3) mg/dL AST 27 (14-36) U/L ALT 30 (4-34) U/L Alkaline Phosphatase 82 (38-126) U/L Troponin I (0.000-0.034) ng/mL Total Protein 9.9 H (6.3-8.2) g/dL Albumin 5.7 H (3.5-5.0) g/dL Lipase 26 (23-300) U/L Urine Color Yellow Urine Appearance Cloudy H (Clear) Urine pH 5.0 (5.0-8.0) Ur Specific Jean 1.030 (1.001-1.035) Urine Protein 2+ H (Negative) Urine Glucose (UA) Trace H (Negative) Urine Ketones 1+ H (Negative) Urine Blood Moderate H (Negative) Urine Nitrite Negative (Negative) Urine Bilirubin Negative (Negative) Urine Urobilinogen 3.0 (<2.0) mg/dL Ur Leukocyte Esterase Negative (Negative) Urine RBC 19 H (0-5) /hpf Urine WBC 11 H (0-5) /hpf Ur Squamous Epith Cells 9 H (0-4) /hpf Hyaline Casts 657 H (0-2) /lpf Urine Mucus Many H (None) /hpf 06/13/23 Range/Units 09:30 WBC (3.8-10.6) k/uL RBC (3.80-5.40) m/uL Hgb (11.4-16.0) gm/dL Hct (34.0-46.0) % MCV (80.0-100.0) fL MCH (25.0-35.0) pg MCHC (31.0-37.0) g/dL RDW (11.5-15.5) % Plt Count (150-450) k/uL MPV Neutrophils % % Lymphocytes % % Monocytes % % Eosinophils % % Basophils % % Neutrophils # (1.3-7.7) k/uL Lymphocytes # (1.0-4.8) k/uL Monocytes # (0-1.0) k/uL Eosinophils # (0-0.7) k/uL Basophils # (0-0.2) k/uL Sodium (137-145) mmol/L Potassium (3.5-5.1) mmol/L Chloride (98-107) mmol/L Carbon Dioxide (22-30) mmol/L Anion Gap mmol/L BUN (7-17) mg/dL Creatinine (0.52-1.04) mg/dL Est GFR (CKD-EPI)AfAm (>60 ml/min/1.73 sqM) Est GFR (CKD-EPI)NonAf (>60 ml/min/1.73 sqM) Glucose (74-99) mg/dL Calcium (8.4-10.2) mg/dL Magnesium (1.6-2.3) mg/dL Total Bilirubin (0.2-1.3) mg/dL AST (14-36) U/L ALT (4-34) U/L Alkaline Phosphatase (38-126) U/L Troponin I <0.012 (0.000-0.034) ng/mL Total Protein (6.3-8.2) g/dL Albumin (3.5-5.0) g/dL Lipase (23-300) U/L Urine Color Urine Appearance (Clear) Urine pH (5.0-8.0) Ur Specific Jean (1.001-1.035) Urine Protein (Negative) Urine Glucose (UA) (Negative) Urine Ketones (Negative) Urine Blood (Negative) Urine Nitrite (Negative) Urine Bilirubin (Negative) Urine Urobilinogen (<2.0) mg/dL Ur Leukocyte Esterase (Negative) Urine RBC (0-5) /hpf Urine WBC (0-5) /hpf Ur Squamous Epith Cells (0-4) /hpf Hyaline Casts (0-2) /lpf Urine Mucus (None) /hpf - EKG Data -: EKG Interpreted by Me EKG Comments: Sinus arrhythmia rate of 84 rate of 139 QRS 93 QT/QTC 366/406 Disposition Clinical Impression: Dehydration, Nausea and vomiting Disposition: HOME SELF-CARE Condition: Stable Instructions (If sedation given, give patient instructions): Acute Nausea and Vomiting (ED) Additional Instructions: Please return to the Emergency Department if symptoms worsen or any other concerns. Prescriptions: Metoclopramide [Reglan] 10 mg PO TID PRN #15 tab PRN Reason: Nausea Is patient prescribed a controlled substance at d/c from ED?: No Referrals: Jewell Bui MD [Primary Care Provider] - 1-2 days Time of Disposition: 11:57
[2023-06-13 10:03] LABS: Basophils % (A) 0 %; Eosinophils # (A) 0.2 k/uL (0-0.7); Eosinophils % (A) 2 %; HCT 47.2 % (34.0-46.0); Lymphocytes # (A) 0.7 k/uL (1.0-4.8); Lymphocytes % (A) 4 %; MCH 34.5 pg (25.0-35.0); MCHC 33.8 g/dL (31.0-37.0); MCV 101.9 fL (80.0-100.0); Mean Platelet Volume 8.1; Monocytes # (A) 0.3 k/uL (0-1.0); Monocytes % (A) 2 %; Neutrophils # (A) 14.1 k/uL (1.3-7.7); Neutrophils % (A) 92 %; Platelet Count 442 k/uL (150-450); RBC 4.64 m/uL (3.80-5.40); RDW 12.4 % (11.5-15.5); WBC 15.3 k/uL (3.8-10.6)
[2023-06-13 10:04] LABS: African American GFR (CKD) 46 (>60 ml/min/1.73 sqM); Albumin 5.7 g/dL (3.5-5.0); Anion Gap 22 mmol/L; Blood Urea Nitrogen 15 mg/dL (7-17); Calcium 10.7 mg/dL (8.4-10.2); Carbon Dioxide 20 mmol/L (22-30); Chloride 103 mmol/L (98-107); Glucose 186 mg/dL (74-99); Lipase 26 U/L (23-300); Non-African American GFR(CKD) 40 (>60 ml/min/1.73 sqM); Sodium 145 mmol/L (137-145); Total Protein 9.9 g/dL (6.3-8.2)
[2023-06-13 10:11] LABS: Potassium 4.5 mmol/L (3.5-5.1)
[2023-06-13 10:12] LABS: ALT 30 U/L (4-34); AST 27 U/L (14-36); Alkaline Phosphatase 82 U/L (38-126); Magnesium 1.8 mg/dL (1.6-2.3)
[2023-06-13] MEDS ORDERED: METOCLOPRAMIDE 5 MG/ML 2 ML VIAL IVP STA (10:55)
[2023-06-13] MEDS ORDERED: LORazepam 2 MG/ML INJ IV STA (10:55)
[2023-06-13 11:50] LABS: Appearance,Urine Cloudy (Clear); Bilirubin,Urine Negative (Negative); Blood,Urine Moderate (Negative); Color,Urine Yellow; Glucose,Urine (UA) Trace (Negative); Hyaline Casts,Urine 657 /lpf (0-2); Ketones,Urine 1+ (Negative); Leukocyte Esterase,Urine Negative (Negative); Mucus,Urine Many /hpf; Nitrite,Urine Negative (Negative); Protein,Urine 2+ (Negative); RBC,Urine 19 /hpf (0-5); Squamous Epithelial Cell,Urine 9 /hpf (0-4); WBC,Urine 11 /hpf (0-5)
[2023-06-13 13:03] VITALS: BP 106/66; PULSE 93; RESP 18; TEMP 98.8
== END 2023-06-13 13:57 | disposition home or self-care (01) ==
LOC: EC 09:08
DX: E86.0 Dehydration (principal); R11.2 Nausea with vomiting, unspecified; F31.9 Bipolar disorder, unspecified; F41.9 Anxiety disorder, unspecified; F17.200 Nicotine dependence, unspecified, uncomplicated; F12.90 Cannabis use, unspecified, uncomplicated; Z88.2 Allergy status to sulfonamides; Z79.899 Other long term (current) drug therapy
CPT/HCPCS: 36415; 93005; 80053; 83690; 83735; 84484; 85025; 81001; 99285; 96374; 96375 ×5; 96376; 96361 ×2; J2060; J1200; J2765; J1885; J1790

== ENCOUNTER 2023-07-25 18:27 | Emergency (ER) | payer MEDICARE ==
[2023-07-25 18:31] VITALS: TEMP 98.1
[2023-07-25] MEDS ORDERED: KETOROLAC 15 MG/ML 1 ML VIAL IVP STA (18:54)
[2023-07-25] MEDS ORDERED: PANTOPRAZOLE 40 MG/10 ML VIAL IVP STA (18:54)
[2023-07-25] MEDS ORDERED: SODIUM CHLORIDE 0.9% 2,000 ML IV STA (18:54)
[2023-07-25] MEDS ORDERED: diphenhydrAMINE 50 MG/ML 1 ML VIAL IVP STA (18:54)
[2023-07-25] MEDS ORDERED: HALOPERIDOL LACTATE 5 MG/ML 1 ML VIAL IVP STA (18:56)
[2023-07-25 19:12] LABS: Basophils # (A) 0.1 k/uL (0-0.2); Basophils % (A) 1 %; Eosinophils # (A) 0.1 k/uL (0-0.7); Eosinophils % (A) 1 %; HCT 48.2 % (34.0-46.0); HGB 16.2 gm/dL (11.4-16.0); Lymphocytes # (A) 0.9 k/uL (1.0-4.8); Lymphocytes % (A) 6 %; MCH 33.8 pg (25.0-35.0); MCHC 33.7 g/dL (31.0-37.0); MCV 100.2 fL (80.0-100.0); Mean Platelet Volume 8.3; Monocytes # (A) 0.3 k/uL (0-1.0); Monocytes % (A) 2 %; Neutrophils # (A) 14.4 k/uL (1.3-7.7); Neutrophils % (A) 91 %; Platelet Count 413 k/uL (150-450); RBC 4.81 m/uL (3.80-5.40); RDW 11.9 % (11.5-15.5); WBC 15.9 k/uL (3.8-10.6)
[2023-07-25 19:21] LABS: ALT 18 U/L (4-34); AST 24 U/L (14-36); African American GFR (CKD) 58 (>60 ml/min/1.73 sqM); Albumin 5.5 g/dL (3.5-5.0); Alkaline Phosphatase 89 U/L (38-126); Amylase 60 U/L (30-110); Anion Gap 21 mmol/L; Blood Urea Nitrogen 13 mg/dL (7-17); Calcium 11.5 mg/dL (8.4-10.2); Carbon Dioxide 18 mmol/L (22-30); Chloride 105 mmol/L (98-107); Glucose 218 mg/dL (74-99); Lipase 33 U/L (23-300); Non-African American GFR(CKD) 50 (>60 ml/min/1.73 sqM); Potassium 4.2 mmol/L (3.5-5.1); Sodium 144 mmol/L (137-145); Total Bilirubin 0.9 mg/dL (0.2-1.3); Total Protein 9.8 g/dL (6.3-8.2)
[2023-07-25 19:22] LABS: Partial Thromboplastin Time 22.2 sec (22.0-30.0); Prothrombin Time 10.5 sec (9.0-12.0)
--- NOTE | 2023-07-25 19:27 | XR ---
EXAMINATION TYPE: XR chest 1V portable DATE OF EXAM: 07/25/2023 7:24 PM COMPARISON: Chest radiographs from 10/12/2021 TECHNIQUE: XR chest 1V portable Portable AP radiograph of the chest. CLINICAL INDICATION:Female, 43 years old with history of vomiting; FINDINGS: Lungs/Pleura: There is no evidence of pleural effusion, focal consolidation, or pneumothorax. Pulmonary vascularity: Unremarkable. Heart/mediastinum: Cardiomediastinal silhouette is unremarkable. Musculoskeletal: No acute osseous pathology. IMPRESSION: No acute cardiopulmonary disease/process.
[2023-07-25] MEDS ORDERED: MORPHINE SULFATE 4 MG/ML SYRINGE IVP STA (19:58)
[2023-07-25 20:03] VITALS: RESP 16
--- NOTE | 2023-07-25 20:35 | ED ---
General Adult HPI - General Chief complaint: Nausea/Vomiting/Diarrhea Stated complaint: vomiting Time Seen by Provider: 07/25/23 18:45 Source: patient, RN notes reviewed, old records reviewed Mode of arrival: ambulatory Limitations: no limitations - History of Present Illness Initial comments: Patient is a 43-year-old female who presents emergency Department for nausea and vomiting. Patient is well-known to our emergency department. History current presentations for intractable nausea and vomiting for what appears to be hyperemesis syndrome. Patient frequently smokes marijuana. She states for the last day she has been having nausea and vomiting. States she is continuing to smoke marijuana. Denies any other drug or alcohol use. Denies any chest pain or shortness of breath. Endorses epigastric abdominal discomfort which is typical for her as well as the multiple episodes of nonbilious nonbloody emesis for the last day. Presents for further evaluation at this time. - Related Data Home Medications Medication Instructions Recorded Confirmed HYDROcodone/APAP 7.5-325MG [[place] 1 tab PO BID PRN 05/12/23 05/12/23 7.5-325] Pseudoephedrine 12Hr [Sudafed 12 120 mg PO Q12HR PRN 05/12/23 05/12/23 Hour] Previous Rx's Medication Instructions Recorded Pantoprazole Sodium [Protonix] 40 mg PO DAILY 30 Days #30 tab 02/26/22 Metoclopramide [Reglan] 10 mg PO TID PRN #15 tab 05/13/23 Metoclopramide [Reglan] 10 mg PO TID PRN #15 tab 06/13/23 Metoclopramide [Reglan] 5 mg PO BID 4 Days #8 tab 07/25/23 Allergies Allergy/AdvReac Type Severity Reaction Status Date / Time sulfamethoxazole Allergy Rash/Hives Verified 07/25/23 18:31 [From Bactrim] trimethoprim [From Bactrim] Allergy Rash/Hives Verified 07/25/23 18:31 Review of Systems ROS Statement: Those systems with pertinent positive or pertinent negative responses have been documented in the HPI. Review of Systems: CONST: Denies fever EYES: Denies blurry vision ENT: Denies nasal congestion C/V: Denies Chest pain RESP: Denies shortness of breath GI: Endorses abdominal pain : Denies dysuria SKIN: Denies rash. MSK: Denies joint pain. NEURO: Denies headache ROS Other: All systems not noted in ROS Statement are negative. Past Medical History Past Medical History: GERD/Reflux, Hyperlipidemia, Renal Disease Additional Past Medical History / Comment(s): Gastroparesis, gastritis, esophageal tears, chronic low back pain, herniated lower discs, bilateral wrist tendonitis with R side worse, R shoulder pain past couple months, numbness to bilateral hand fingers when first wakes, migraines, instructed to sleep with HOB up 6 inches d/t heart rate dropping with sleep, vertigo, pyelonephritis, History of Any Multi-Drug Resistant Organisms: None Reported Past Surgical History: Appendectomy, Tubal Ligation Additional Past Surgical History / Comment(s): Botox injection "mouth" of stomach-R/T SPASMS , EGDs, colonoscopy, vaginal cyst drained. Past Anesthesia/Blood Transfusion Reactions: No Reported Reaction Additional Past Anesthesia/Blood Transfusion Reaction / Comment(s): Never had blood transfusion. Past Psychological History: Anxiety, Bipolar, Depression Smoking Status: Current every day smoker Past Alcohol Use History: None Reported Past Drug Use History: Marijuana - Past Family History Mother Family Medical History: Cancer Additional Family Medical History / Comment(s): Mother is living. She has had breast cancer and 2 back surgeries. Father Family Medical History: No Reported History Additional Family Medical History / Comment(s): Father had ETOH abuse and was manic depressive. He after a fall where he fractured his back then "drank" himself to . Brother(s) Family Medical History: Neurologic Disorder Sister(s) Family Medical History: No Reported History Son(s) Family Medical History: No Reported History Daughter(s) Family Medical History: No Reported History General Exam - General Exam Comments Initial Comments: General: Appears dehydrated. HEAD: Normal with no signs of head trauma. EYES: PERRLA, EOMI, conjunctiva normal, no discharge. ENT: Hearing grossly intact, normal oropharynx. Dry mucous membranes. RESPIRATORY: Clear breath sounds bilaterally. No wheezes, rales, or rhonchi. C/V: Regular rate and rhythm. S1 and S2 auscultated, no edema, peripheral pulses 2+ and intact throughout ABD: Abdomen is soft, nondistended. Mildly tender to palpation epigastric region. Guarding. No rebound tenderness. No peritoneal signs. EXT: Normal range of motion, no obvious deformity SKIN: No rashes or lesions observed on exposed skin. NEURO: Alert and oriented 4. Limitations: no limitations Course Vital Signs 07/25/23 07/25/23 07/25/23 18:29 18:53 19:31 Temperature 98.1 F Pulse Rate 88 96 69 Respiratory 20 20 16 Rate Blood Pressure 133/98 128/103 139/95 O2 Sat by Pulse 96 96 98 Oximetry 07/25/23 21:38 Temperature Pulse Rate 78 Respiratory 16 Rate Blood Pressure 135/78 O2 Sat by Pulse 98 Oximetry Medical Decision Making - Medical Decision Making Was pt. sent in by a medical professional or institution (, PA, DIST[employer]ERY MILLER HELPER, urgent care, hospital, or [facility]...) When possible be specific @ -No Did you speak to anyone other than the patient for history (EMS, parent, family, police, friend...)? What history was obtained from this source @ -No Did you review nursing and triage notes (agree or disagree)? Why? @ -I reviewed and agree with nursing and triage notes Were old charts reviewed (outside hosp., previous admission, EMS record, old EKG, old radiological studies, urgent care reports/EKG's, [facility] records)? Report findings @ -Old charts reviewed Differential Diagnosis (chest pain, altered mental status, abdominal pain women, abdominal pain men, vaginal bleeding, weakness, fever, dyspnea, syncope, headache, dizziness, GI bleed, back pain, seizure, CVA, palpatations, mental health, musculoskeletal)? @ -Dehydration, nausea, vomiting, gastritis, cholecystitis, pancreatitis, gastroparesis, marijuana hyperemesis syndrome. This list is not all-inclusive. EKG interpreted by me (3pts min.). @ -None done X-rays interpreted by me (1pt min.). @ -Chest x-ray shows no evidence of free air under the diaphragm or other acute cardiopulmonary process. CT interpreted by me (1pt min.). @ -None done U/S interpreted by me (1pt. min.). @ -None done What testing was considered but not performed or refused? (CT, X-rays, U/S, labs)? Why? @ -None What meds were considered but not given or refused? Why? @ -None Did you discuss the management of the patient with other professionals (professionals i.e. , PA, DIST[employer] M[employer]ER HELPER, lab, RT, psych nurse, social contact worker, double bottom driver, teacher, certification officer, sample case porter)? Give summary @ -No Was smoking cessation discussed for >3mins.? @ -No Was critical care preformed (if so, how long)? @ -No Were there social determinants of health that impacted care today? How? (Homelessness, low income, unemployed, alcoholism, drug addiction, transportation, low edu. Level, literacy, decrease access to med. care, prison, rehab)? @ -No Was there de-escalation of care discussed even if they declined (Discuss DNR or withdrawal of care, Hospice)? DNR status @ -No What co-morbidities impacted this encounter? (DM, HTN, Smoking, COPD, CAD, Cancer, CVA, ARF, Chemo, Hep., AIDS, mental health diagnosis, sleep apnea, morbid obesity)? @ -Chronic nausea and vomiting secondary to hyperemesis syndrome Was patient admitted / discharged? Hospital course, mention meds given and route, prescriptions, significant lab abnormalities, going to OR and other pertinent info. @ -Based on the patient's presentation and physical exam, presents with acute on chronic symptoms that are typical for her. We'll obtain abdominal laboratory studies as well as a chest x-ray. Patient was symptomatically treated with IV fluids 2 L, IV Protonix, Toradol, Benadryl, Haldol. She was in agreement with this plan. Vital signs within acceptable limits. Patient's labs are consistent with dehydration and emesis. Vital signs negative. Urine still pending. She appears to be hemoconcentrated. She is still receiving 2 L fluid bolus. We will reevaluate and attempt oral hydration. I updated the patient. Still has mild pain and is asking for morphine which will be provided. Patient is feeling improved. Tolerating oral intake. She'll be discharged home at this time. Strict return precautions discussed. Marijuana smoking cessation emphasized. Patient was in agreement this plan. I will provide the patient with a prescription for Reglan. I instructed the patient to follow up with their PCP in the next 1-3 days. I explained that the patient should return to the emergency department if they experience any worsening symptoms. Strict return precautions were discussed with the patient. The patient expressed understanding of these instructions. I answered all questions that the patient had. The patient was discharged home in fair condition with their prescriptions and follow up information. Undiagnosed new problem with uncertain prognosis? @ -No Drug Therapy requiring intensive monitoring for toxicity (Heparin, Nitro, Insu shana, Cardizem)? @ -No Were any procedures done? @ -No Diagnosis/symptom? @ -Gastroparesis, abdominal pain, nausea and vomiting, dehydration Acute, or Chronic, or Acute on Chronic? @ -Acute on chronic Uncomplicated (without systemic symptoms) or Complicated (systemic symptoms)? @ -Complicated Side effects of treatment? @ -No Exacerbation, Progression, or Severe Exacerbation? @ -No Poses a threat to life or bodily function? How? (Chest pain, [place], [place], pneumonia, PE, COPD, DKA, ARF, appy, cholecystitis, CVA, Diverticulitis, Homicidal, Suicidal, threat to staff... and all critical care pts) @ -No - Lab Data Result diagrams: 07/25/23 18:54 07/25/23 18:54 Lab Results 07/25/23 07/25/23 07/25/23 Range/Units 18:54 18:54 18:54 WBC 15.9 H (3.8-10.6) k/uL RBC 4.81 (3.80-5.40) m/uL Hgb 16.2 H (11.4-16.0) gm/dL Hct 48.2 H (34.0-46.0) % MCV 100.2 H (80.0-100.0) fL MCH 33.8 (25.0-35.0) pg MCHC 33.7 (31.0-37.0) g/dL RDW 11.9 (11.5-15.5) % Plt Count 413 (150-450) k/uL MPV 8.3 Neutrophils % 91 % Lymphocytes % 6 % Monocytes % 2 % Eosinophils % 1 % Basophils % 1 % Neutrophils # 14.4 H (1.3-7.7) k/uL Lymphocytes # 0.9 L (1.0-4.8) k/uL Monocytes # 0.3 (0-1.0) k/uL Eosinophils # 0.1 (0-0.7) k/uL Basophils # 0.1 (0-0.2) k/uL PT 10.5 (9.0-12.0) sec INR 1.0 (<1.2) APTT 22.2 (22.0-30.0) sec Sodium 144 (137-145) mmol/L Potassium 4.2 (3.5-5.1) mmol/L Chloride 105 (98-107) mmol/L Carbon Dioxide 18 L (22-30) mmol/L Anion Gap 21 mmol/L BUN 13 (7-17) mg/dL Creatinine 1.30 H (0.52-1.04) mg/dL Est GFR (CKD-EPI)AfAm 58 (>60 ml/min/1.73 sqM) Est GFR (CKD-EPI)NonAf 50 (>60 ml/min/1.73 sqM) Glucose 218 H (74-99) mg/dL Calcium 11.5 H (8.4-10.2) mg/dL Total Bilirubin 0.9 (0.2-1.3) mg/dL AST 24 (14-36) U/L ALT 18 (4-34) U/L Alkaline Phosphatase 89 (38-126) U/L Total Protein 9.8 H (6.3-8.2) g/dL Albumin 5.5 H (3.5-5.0) g/dL Amylase 60 (30-110) U/L Lipase 33 (23-300) U/L Influenza Type A (PCR) (Not Detectd) Influenza Type B (PCR) (Not Detectd) RSV (PCR) (Not Detectd) SARS-CoV-2 (PCR) (Not Detectd) 07/25/23 Range/Units 18:56 WBC (3.8-10.6) k/uL RBC (3.80-5.40) m/uL Hgb (11.4-16.0) gm/dL Hct (34.0-46.0) % MCV (80.0-100.0) fL MCH (25.0-35.0) pg MCHC (31.0-37.0) g/dL RDW (11.5-15.5) % Plt Count (150-450) k/uL MPV Neutrophils % % Lymphocytes % % Monocytes % % Eosinophils % % Basophils % % Neutrophils # (1.3-7.7) k/uL Lymphocytes # (1.0-4.8) k/uL Monocytes # (0-1.0) k/uL Eosinophils # (0-0.7) k/uL Basophils # (0-0.2) k/uL PT (9.0-12.0) sec INR (<1.2) APTT (22.0-30.0) sec Sodium (137-145) mmol/L Potassium (3.5-5.1) mmol/L Chloride (98-107) mmol/L Carbon Dioxide (22-30) mmol/L Anion Gap mmol/L BUN (7-17) mg/dL Creatinine (0.52-1.04) mg/dL Est GFR (CKD-EPI)AfAm (>60 ml/min/1.73 sqM) Est GFR (CKD-EPI)NonAf (>60 ml/min/1.73 sqM) Glucose (74-99) mg/dL Calcium (8.4-10.2) mg/dL Total Bilirubin (0.2-1.3) mg/dL AST (14-36) U/L ALT (4-34) U/L Alkaline Phosphatase (38-126) U/L Total Protein (6.3-8.2) g/dL Albumin (3.5-5.0) g/dL Amylase (30-110) U/L Lipase (23-300) U/L Influenza Type A (PCR) Not Detected (Not Detectd) Influenza Type B (PCR) Not Detected (Not Detectd) RSV (PCR) Not Detected (Not Detectd) SARS-CoV-2 (PCR) Not Detected (Not Detectd) Disposition Clinical Impression: Abdominal pain, Dehydration, Nausea and vomiting, Gastroparesis Disposition: HOME SELF-CARE Condition: Stable Instructions (If sedation given, give patient instructions): Acute Nausea and Vomiting (ED), Gastroparesis (ED) Prescriptions: Metoclopramide [Reglan] 5 mg PO BID 4 Days #8 tab Is patient prescribed a controlled substance at d/c from ED?: No Referrals: Jewell Bui MD [Primary Care Provider] - 1-2 days Time of Disposition: 21:00
[2023-07-25] MEDS ORDERED: METOCLOPRAMIDE 5 MG/ML 2 ML VIAL IVP STA (21:01)
[2023-07-25 21:39] VITALS: BP 135/78; PULSE 78
== END 2023-07-25 21:39 | disposition home or self-care (01) ==
LOC: EC 18:27
DX: K31.84 Gastroparesis (principal); E86.0 Dehydration; E78.5 Hyperlipidemia, unspecified; F41.9 Anxiety disorder, unspecified; F17.200 Nicotine dependence, unspecified, uncomplicated; F12.90 Cannabis use, unspecified, uncomplicated; Z88.2 Allergy status to sulfonamides; Z79.899 Other long term (current) drug therapy; Z20.822 Contact with and (suspected) exposure to COVID-19
CPT/HCPCS: 36415; 80053; 82150; 83690; 85025; 85610; 85730; 87636; 71045; 99284; 96374; 96375 ×5; 96361 ×2; J2270; J1200; J1630; J2765; J1885; C9113

== ENCOUNTER 2024-01-25 18:39 | Inpatient (IN) | payer MEDICARE ==
[2024-01-25 19:32] LABS: Basophils % (A) 0 %; Eosinophils # (A) 0.2 k/uL (0-0.7); Eosinophils % (A) 1 %; HCT 50.9 % (34.0-46.0); HGB 17.7 gm/dL (11.4-16.0); Lymphocytes # (A) 0.9 k/uL (1.0-4.8); Lymphocytes % (A) 5 %; MCH 34.2 pg (25.0-35.0); MCHC 34.7 g/dL (31.0-37.0); MCV 98.4 fL (80.0-100.0); Monocytes # (A) 0.4 k/uL (0-1.0); Monocytes % (A) 3 %; Neutrophils % (A) 90 %; Platelet Count 539 k/uL (150-450); RBC 5.17 m/uL (3.80-5.40); RDW 11.8 % (11.5-15.5); WBC 16.5 k/uL (3.8-10.6)
[2024-01-25 19:43] LABS: Partial Thromboplastin Time 25.7 sec (22.0-30.0); Prothrombin Time 10.7 sec (10.0-12.5)
[2024-01-25 19:45] LABS: ALT 77 U/L (4-34); AST 32 U/L (14-36); African American GFR (CKD) 19 (>60 ml/min/1.73 sqM); Alkaline Phosphatase 112 U/L (38-126); Anion Gap 30 mmol/L; Blood Urea Nitrogen 25 mg/dL (7-17); Calcium 11.6 mg/dL (8.4-10.2); Carbon Dioxide 13 mmol/L (22-30); Chloride 103 mmol/L (98-107); Glucose 219 mg/dL (74-99); Magnesium 2.4 mg/dL (1.6-2.3); Non-African American GFR(CKD) 16 (>60 ml/min/1.73 sqM); Potassium 4.8 mmol/L (3.5-5.1); Sodium 146 mmol/L (137-145); Total Bilirubin 0.9 mg/dL (0.2-1.3)
--- NOTE | 2024-01-25 20:29 | XR ---
EXAMINATION TYPE: XR chest 2V DATE OF EXAM: 01/25/2024 8:19 PM CLINICAL INDICATION:Female, 43 years old with history of Chest Pain; [facility] COMPARISON: 07/25/2023 TECHNIQUE: XR chest 2V. Frontal and lateral views of the chest.. FINDINGS: Lines/Tubes/Devices: No indwelling lines are seen. Heart/mediastinum: Heart size is normal. Mediastinum appears normal. Pulmonary vascularity: Not increased, Lungs/Pleura: There is no evidence of pleural effusion, focal consolidation, or pneumothorax. Musculoskeletal: No acute osseous abnormality demonstrated in the limits of the exam. Mild pectus ex cavatum. Other findings: None. IMPRESSION: No acute cardiopulmonary abnormality.
[2024-01-25 20:41] LABS: Albumin 5.8 g/dL (3.5-5.0)
[2024-01-25] MEDS ORDERED: NALOXONE 0.4 MG/ML 1 ML VIAL IV PRN (20:46)
--- NOTE | 2024-01-25 20:51 | ED ---
Altered Mental Status HPI - General Chief Complaint: Chest Pain Stated Complaint: Chest Pain Time Seen by Provider: 01/25/24 20:15 Source: patient, RN notes reviewed, old records reviewed Mode of arrival: wheelchair Limitations: no limitations - History of Present Illness Initial Comments: This is a 43-year-old female to the ER for evaluation of severe altered mental status. Patient is unable provide history states he is having chest pain abdominal pain back pain nausea vomiting severe patient has significant pain with persistent nausea vomiting here in the emergency department, continues to be a poor historian MD Complaint: altered mental status, confusion, decreased responsiveness, weakness -: unknown Severity: severe Consistency of Symptoms: getting worse Context: drug abuse, history of similar presentation Associated Symptoms: denies other symptoms Treatments Prior to Arrival: oxygen - Related Data Home Medications Medication Instructions Recorded Confirmed Metoclopramide [Reglan] 10 mg PO QID PRN 01/25/24 01/25/24 Previous Rx's Medication Instructions Recorded Amoxic-Pot Clav 500-125 mg 1 tab PO Q12HR 7 Days #14 tab 01/28/24 [Augmentin 500-125 mg] Ondansetron Odt [Zofran ODT] 8 mg PO BID PRN 10 Days #20 01/28/24 Pantoprazole [Protonix] 40 mg PO BID #60 tab 01/28/24 Allergies Allergy/AdvReac Type Severity Reaction Status Date / Time sulfamethoxazole Allergy Rash/Hives Verified 01/25/24 20:58 [From Bactrim] trimethoprim [From Bactrim] Allergy Rash/Hives Verified 01/25/24 20:58 Review of Systems ROS Statement: Those systems with pertinent positive or pertinent negative responses have been documented in the HPI. ROS Other: All systems not noted in ROS Statement are negative. Past Medical History Past Medical History: GERD/Reflux, Hyperlipidemia, Renal Disease Additional Past Medical History / Comment(s): Gastroparesis, gastritis, esophageal tears, chronic low back pain, herniated lower discs, bilateral wrist tendonitis with R side worse, R shoulder pain past couple months, numbness to bilateral hand fingers when first wakes, migraines, instructed to sleep with HOB up 6 inches d/t heart rate dropping with sleep, vertigo, pyelonephritis, History of Any Multi-Drug Resistant Organisms: None Reported Past Surgical History: Appendectomy, Tubal Ligation Additional Past Surgical History / Comment(s): Botox injection "mouth" of stomach-R/T SPASMS , EGDs, colonoscopy, vaginal cyst drained. Past Anesthesia/Blood Transfusion Reactions: No Reported Reaction Additional Past Anesthesia/Blood Transfusion Reaction / Comment(s): Never had blood transfusion. Past Psychological History: Anxiety, Bipolar, Depression Smoking Status: Current every day smoker Past Alcohol Use History: None Reported Past Drug Use History: Marijuana - Past Family History Mother Family Medical History: Cancer Additional Family Medical History / Comment(s): Mother is living. She has had breast cancer and 2 back surgeries. Father Family Medical History: No Reported History Additional Family Medical History / Comment(s): Father had ETOH abuse and was manic depressive. He after a fall where he fractured his back then "drank" himself to . Brother(s) Family Medical History: Neurologic Disorder Sister(s) Family Medical History: No Reported History Son(s) Family Medical History: No Reported History Daughter(s) Family Medical History: No Reported History General Exam Limitations: no limitations, altered mental status, physical limitation General appearance: alert, anxious, lethargic, obtunded, obese Head exam: Present: atraumatic, normocephalic, normal inspection Eye exam: Present: normal appearance, PERRL, EOMI. Absent: scleral icterus, conjunctival injection, periorbital swelling ENT exam: Present: normal exam, mucous membranes dry Neck exam: Present: normal inspection. Absent: tenderness, meningismus, lymphadenopathy Respiratory exam: Present: respiratory distress, accessory muscle use, decreased breath sounds, prolonged expiratory. Absent: wheezes, rales, rhonchi, stridor Cardiovascular Exam: Present: normal rhythm, tachycardia, normal heart sounds. Absent: systolic murmur, diastolic murmur, rubs, gallop, clicks GI/Abdominal exam: Present: soft, normal bowel sounds. Absent: distended, tenderness, guarding, rebound, rigid Extremities exam: Present: normal inspection, full ROM, normal capillary refill. Absent: tenderness, pedal edema, joint swelling, calf tenderness Back exam: Present: normal inspection Neurological exam: Present: alert, oriented X3, CN II-XII intact Psychiatric exam: Present: normal affect, normal mood Skin exam: Present: warm, dry, intact, normal color. Absent: rash Course Vital Signs 01/25/24 01/25/24 01/25/24 18:46 20:10 20:22 Temperature 98.1 F 99.9 F H Pulse Rate 134 H 135 H Pulse Rate [ Pulse Oximetery ] Respiratory 18 18 Rate Blood Pressure 122/90 116/86 Blood Pressure [Right Arm] O2 Sat by Pulse 95 95 Oximetry 01/25/24 01/25/24 01/26/24 21:30 23:00 01:21 Temperature Pulse Rate 95 92 Pulse Rate [ 85 Pulse Oximetery ] Respiratory 21 15 16 Rate Blood Pressure 122/89 122/89 Blood Pressure 128/87 [Right Arm] O2 Sat by Pulse 99 96 97 Oximetry 01/26/24 01/26/24 01/26/24 07:53 15:37 18:19 Temperature 98.4 F Pulse Rate 90 76 80 Pulse Rate [ Pulse Oximetery ] Respiratory 18 18 18 Rate Blood Pressure 126/68 115/67 142/89 Blood Pressure [Right Arm] O2 Sat by Pulse 96 96 100 Oximetry 01/26/24 01/27/24 01/27/24 21:17 00:41 06:00 Temperature 98.9 F Pulse Rate 73 76 75 Pulse Rate [ Pulse Oximetery ] Respiratory 18 18 20 Rate Blood Pressure 130/82 119/71 124/68 Blood Pressure [Right Arm] O2 Sat by Pulse Oximetry 01/27/24 07:50 Temperature 97.2 F L Pulse Rate Pulse Rate [ 73 Pulse Oximetery ] Respiratory 18 Rate Blood Pressure Blood Pressure 129/96 [Right Arm] O2 Sat by Pulse 96 Oximetry - Reevaluation(s) Reevaluation #1: 01/25/24 20:50 Records reviewed Reevaluation #2: 01/25/24 20:50 Patient symptoms are improving Reevaluation #3: 01/25/24 20:50 Patient informed of results and questions answered Reevaluation #4: Was pt. sent in by a medical professional or institution (, PA, SPOT SPRAYER, urgent care, hospital, or jail...) When possible be specific @ -no Did you speak to anyone other than the patient for history (EMS, parent, family, police, friend...)? What history was obtained from this source @ -no Did you review nursing and triage notes (agree or disagree)? Why? @ -agree Are old charts reviewed (outside hosp., previous admission, EMS record, old EKG, old radiological studies, urgent care reports/EKG's, jail records)? Report findings @ -yes Differential Diagnosis (chest pain, altered mental status, abdominal pain women, abdominal pain men, vaginal bleeding, weakness, fever, dyspnea, syncope, headache, dizziness, GI bleed, back pain, seizure, CVA, palpatations, mental health, musculoskeletal)? @ -prior EKG interpreted by me (3pts min.). @ -yes X-rays interpreted by me (1pt min.). @ -yes negative for acute disease CT interpreted by me (1pt min.). @ -no U/S interpreted by me (1pt. min.). @ -no What testing was considered but not performed or refused? (CT, X-rays, U/S, labs)? Why? @ -none What meds were considered but not given or refused? Why? @ -none Did you discuss the management of the patient with other professionals (professionals i.e. , PA, SPOT SPRAYER, lab, RT, psych nurse, social services, household coordinator, teacher, juvenile justice officer, field case manager)? Give summary @ -no Was smoking cessation discussed for >3mins.? @ -no Was critical care preformed (if so, how long)? @ -yes31 Were there social determinants of health that impacted care today? How? (Homelessness, low income, unemployed, alcoholism, drug addiction, transportati on, low edu. Level, literacy, decrease access to med. care, assisted, rehab)? @ -none Was there de-escalation of care discussed even if they declined (Discuss DNR or withdrawal of care, Hospice)? DNR status @ -no What co-morbidities impacted this encounter? (DM, HTN, Smoking, COPD, CAD, Cancer, CVA, ARF, Chemo, Hep., AIDS, mental health diagnosis, sleep apnea, morbid obesity)? @ -none Was patient admitted / discharged? Hospital course, mention meds given and route, prescriptions, significant lab abnormalities, going to OR and other pertinent info. @ - 43 female to the ER for evaluation of severe altered mental status severe dehydration and acute kidney failure. Patient will be admitted for IV hydration medical management and possible need for psychiatric evaluation As admitted Undiagnosed new problem with uncertain prognosis? @ -no Drug Therapy requiring intensive monitoring for toxicity (Heparin, Nitro, Insulin, Cardizem)? @ -no Were any procedures done? @ -no Diagnosis/symptom? @ -Altered mental status, pain with renal failure, severe lactic acidosis Acute, or Chronic, or Acute on Chronic? @ -Acute Uncomplicated (without systemic symptoms) or Complicated (systemic symptoms)? @ -Complicated Side effects of treatment? @ -no Exacerbation, Progression, or Severe Exacerbation? @ -exacerbation Poses a threat to life or bodily function? How? (Chest pain, USA, VT, pneumonia, PE, COPD, DKA, ARF, appy, cholecystitis, CVA, Diverticulitis, Homicidal, Suicidal, threat to staff... and all critical care pts) @ -yes with significantly altered mental status Reevaluation #5: Differential Altered Mental Status: Hypoglycemia, DKA, hypercapnia, ETOH, overdose, CO poisoning, trauma, myxedema coma, HTN encephalopathy, infection, encephalitis, psychosis, intercranial hemorrhage, hepatic encephalopathy, meningitis, CVA, this is not meant to be an all-inclusive list Differential Chest Pain: Stable Angina, Unstable Angina, STEMI, NSTEMI Aortic Dissection, Pneumothorax, Musculoskeletal, Esophageal Spasm GERD, Cholecystitis, Pancreatitis, Zoster, this is not meant to be an all-inclusive list. Differential Weakness: Hypoglycemia, shock, sepsis, hyponatremia, anemia, infection, VT, ETOH, adverse medicine reaction, overdose, stroke, this is not meant to be an all-inclusive list. - Consultations Consultation #1: Spoke with [facility] who agrees to admit this patient Medical Decision Making - Medical Decision Making 43 female to the ER for evaluation of severe altered mental status severe dehydration and acute kidney failure. Patient will be admitted for IV hydration medical management and possible need for psychiatric evaluation - Lab Data Result diagrams: 01/28/24 07:53 01/28/24 07:53 Lab Results 01/25/24 01/25/24 01/25/24 Range/Units 19:07 19:07 19:07 WBC 16.5 H (3.8-10.6) k/uL RBC 5.17 (3.80-5.40) m/uL Hgb 17.7 H (11.4-16.0) gm/dL Hct 50.9 H (34.0-46.0) % MCV 98.4 (80.0-100.0) fL MCH 34.2 (25.0-35.0) pg MCHC 34.7 (31.0-37.0) g/dL RDW 11.8 (11.5-15.5) % Plt Count 539 H (150-450) k/uL MPV 8.0 Neutrophils % 90 % Lymphocytes % 5 % Monocytes % 3 % Eosinophils % 1 % Basophils % 0 % Neutrophils # 15.0 H (1.3-7.7) k/uL Lymphocytes # 0.9 L (1.0-4.8) k/uL Monocytes # 0.4 (0-1.0) k/uL Eosinophils # 0.2 (0-0.7) k/uL Basophils # 0.0 (0-0.2) k/uL PT 10.7 (10.0-12.5) sec INR 1.0 (<1.2) APTT 25.7 (22.0-30.0) sec Sodium 146 H (137-145) mmol/L Potassium 4.8 (3.5-5.1) mmol/L Chloride 103 (98-107) mmol/L Carbon Dioxide 13 L (22-30) mmol/L Anion Gap 30 mmol/L BUN 25 H (7-17) mg/dL Creatinine 3.26 H (0.52-1.04) mg/dL Est GFR (CKD-EPI)AfAm 19 (>60 ml/min/1.73 sqM) Est GFR (CKD-EPI)NonAf 16 (>60 ml/min/1.73 sqM) Glucose 219 H (74-99) mg/dL Calcium 11.6 H (8.4-10.2) mg/dL Magnesium 2.4 H (1.6-2.3) mg/dL Total Bilirubin 0.9 (0.2-1.3) mg/dL AST 32 (14-36) U/L ALT 77 H (4-34) U/L Alkaline Phosphatase 112 (38-126) U/L Troponin I (0.000-0.034) ng/mL Total Protein 11.0 H (6.3-8.2) g/dL Albumin 5.8 H (3.5-5.0) g/dL 01/25/24 Range/Units 19:07 WBC (3.8-10.6) k/uL RBC (3.80-5.40) m/uL Hgb (11.4-16.0) gm/dL Hct (34.0-46.0) % MCV (80.0-100.0) fL MCH (25.0-35.0) pg MCHC (31.0-37.0) g/dL RDW (11.5-15.5) % Plt Count (150-450) k/uL MPV Neutrophils % % Lymphocytes % % Monocytes % % Eosinophils % % Basophils % % Neutrophils # (1.3-7.7) k/uL Lymphocytes # (1.0-4.8) k/uL Monocytes # (0-1.0) k/uL Eosinophils # (0-0.7) k/uL Basophils # (0-0.2) k/uL PT (10.0-12.5) sec INR (<1.2) APTT (22.0-30.0) sec Sodium (137-145) mmol/L Potassium (3.5-5.1) mmol/L Chloride (98-107) mmol/L Carbon Dioxide (22-30) mmol/L Anion Gap mmol/L BUN (7-17) mg/dL Creatinine (0.52-1.04) mg/dL Est GFR (CKD-EPI)AfAm (>60 ml/min/1.73 sqM) Est GFR (CKD-EPI)NonAf (>60 ml/min/1.73 sqM) Glucose (74-99) mg/dL Calcium (8.4-10.2) mg/dL Magnesium (1.6-2.3) mg/dL Total Bilirubin (0.2-1.3) mg/dL AST (14-36) U/L ALT (4-34) U/L Alkaline Phosphatase (38-126) U/L Troponin I 0.018 (0.000-0.034) ng/mL Total Protein (6.3-8.2) g/dL Albumin (3.5-5.0) g/dL - EKG Data -: EKG Interpreted by De - Radiology Data Radiology results: report reviewed (Chest x-ray is negative for acute disease), image reviewed Critical Care Time Critical Care Time: Yes Total Critical Care Time: 31 Disposition Clinical Impression: Dehydration, Intractable nausea and vomiting, [place]YS[place] (acute kidney injury), Nausea and vomiting, Altered mental state Disposition: ADMITTED IP TO THIS HOSP Condition: Serious Is patient prescribed a controlled substance at d/c from ED?: No Time of Disposition: 20:50
[2024-01-25] MEDS: SODIUM CHLORIDE 0.9% 2,000 ML IV STA (20:55)
[2024-01-25] MEDS: MORPHINE SULFATE 4 MG/ML SYRINGE IVP STA (20:55)
[2024-01-25] MEDS: ONDANSETRON 4 MG/2 ML VIAL IVP STA (20:57)
[2024-01-25] MEDS: PANTOPRAZOLE 40 MG/10 ML VIAL IV SCH (20:59)
[2024-01-25] MEDS ORDERED: SODIUM CHLORIDE 0.9% 1,000 ML IV SCH (21:00)
[2024-01-25] MEDS: LORazepam 2 MG/ML INJ IV STA (21:06)
[2024-01-25 21:58] LABS: Lactic Acid, Venous 6.3 mmol/L (0.7-2.0)
[2024-01-25] MEDS: MORPHINE SULFATE 4 MG/ML SYRINGE IV PRN (22:05)
[2024-01-25] MEDS: SODIUM CHLORIDE 0.9% 1,000 ML IV SCH (22:11)
[2024-01-25 22:20] LABS: Magnesium 2.1 mg/dL (1.6-2.3); Phosphorus 4.3 mg/dL (2.5-4.5)
[2024-01-26] MEDS: ONDANSETRON 4 MG/2 ML VIAL IVP PRN (02:33)
[2024-01-26] MEDS ORDERED: ONDANSETRON 4 MG in SODIUM CHLORIDE 0.9% 50 ML IVPB ONE (07:29)
[2024-01-26] MEDS ORDERED: IOPAMIDOL CONTRAST (ORAL USE) VIAL PO PRN (07:29)
--- NOTE | 2024-01-26 07:39 | P.HPIM ---
History of Present Illness This is a pleasant 43 years old female with past medical history of multiple medical problems including GERD, hyperlipidemia, chronic back pain, migraine, finger numbness is suspicious for peripheral neuropathy and depression. Presents because of feeling pain all over and has been vomiting for the last 2 days. Patient looks very anxious because of her abdominal pain and nausea and she states she has history of anxiety. However she told me the main reason she came to the hospital because she has been vomiting with a blood for the last 2 days, yesterday she vomited about 6-7 times in 1 hour, she states she cannot keep or hold anything down Also has been complaining from abdominal pain, she points to the left lower quadrant stating it was 10/10 on presentation but now 8/10, nonspecific. No bowel movement for the last 3 nights and she has poor appetite She complains also from back pain but this is a chronic She complains from dizziness when she stands up However she denies urinary specific symptoms although she claims it is orange in color Presentation there was some mention of chest pain but patient denies chest pain to me, she feels some anxiety and that made her breathing faster than the breathing difficulty. No coughing. She denies headache dizziness weakness or numbness She states that her menstrual cycle has been irregular lately she had 2 cycles in 1 month and the last cycle lasted 10 days which is unusual for her because it is usually 4 days. She says she is 44 and she thinks that her menopause. She used to follow-up with Dr. Victoria but her office not working anymore and she is looking for PCP now and she ran out of her Protonix for the last 3 weeks. Patient on presentation was tachycardic, blood pressure was 116/86. She developed low-grade temperature 99.9. Sodium 146. Creatinine elevated 3.2 however recently the range was 1.3-1.5. She has some leukocytosis about 16.5 and hemoglobin 17 but also looks like concentrated samples as patient is dehydrated INR is unremarkable as well as liver enzymes. Chest x-ray does not show any acute process Lactic acid was significantly elevated 6.3 came back to normal 1.4 EKG is read as atrial flutter with a rate of 135 mild also is suspicious for sin us tachycardia as well therefore we are going to consult cardiology team Patient in the emergency room received several boluses of normal saline and given 1 dose of Rocephin. Review of Systems Review of systems CONSTITUTIONAL: No fever, no malaise, no fatigue. HEENT: No recent visual problems or hearing problems. Denied any sore throat. CARDIOVASCULAR: No orthopnea, PND, no palpitations, no syncope. PULMONARY: No shortness of breath, no cough, no hemoptysis. GASTROINTESTINAL: No diarrhea, no blood per rectum. NEUROLOGICAL: No headaches, no weakness, no numbness. HEMATOLOGICAL: Denies any bleeding or petechiae. GENITOURINARY: Denies any burning micturition, frequency, or urgency. MUSCULOSKELETAL/RHEUMATOLOGICAL: Denies any joint pain, swelling, or any muscle pain. ENDOCRINE: Denies any polyuria or polydipsia. Past Medical History Past Medical History: GERD/Reflux, Hyperlipidemia, Renal Disease Additional Past Medical History / Comment(s): Gastroparesis, gastritis, esophageal tears, chronic low back pain, herniated lower discs, bilateral wrist tendonitis with R side worse, R shoulder pain past couple months, numbness to bilateral hand fingers when first wakes, migraines, instructed to sleep with HOB up 6 inches d/t heart rate dropping with sleep, vertigo, pyelonephritis, History of Any Multi-Drug Resistant Organisms: None Reported Past Surgical History: Appendectomy, Tubal Ligation Additional Past Surgical History / Comment(s): Botox injection "mouth" of stomach-R/T SPASMS , EGDs, colonoscopy, vaginal cyst drained. Past Anesthesia/Blood Transfusion Reactions: No Reported Reaction Additional Past Anesthesia/Blood Transfusion Reaction / Comment(s): Never had blood transfusion. Past Psychological History: Anxiety, Bipolar, Depression Smoking Status: Current every day smoker Past Alcohol Use History: None Reported Past Drug Use History: Marijuana - Past Family History Mother Family Medical History: Cancer Additional Family Medical History / Comment(s): Mother is living. She has had breast cancer and 2 back surgeries. Father Family Medical History: No Reported History Additional Family Medical History / Comment(s): Father had ETOH abuse and was manic depressive. He after a fall where he fractured his back then "drank" himself to . Brother(s) Family Medical History: Neurologic Disorder Sister(s) Family Medical History: No Reported History Son(s) Family Medical History: No Reported History Daughter(s) Family Medical History: No Reported History Medications and Allergies Home Medications Medication Instructions Recorded Confirmed Type HYDROcodone/APAP 7.5-325MG [[place] 1 tab PO BID PRN 05/12/23 01/25/24 History 7.5-325] Metoclopramide [Reglan] 10 mg PO QID PRN 01/25/24 01/25/24 History Ondansetron Odt [Zofran Odt] 8 mg PO BID PRN 01/25/24 01/25/24 History Allergies Allergy/AdvReac Type Severity Reaction Status Date / Time sulfamethoxazole Allergy Rash/Hives Verified 01/25/24 20:58 [From Bactrim] trimethoprim [From Bactrim] Allergy Rash/Hives Verified 01/25/24 20:58 Physical Exam Vitals: Vital Signs Temp Pulse Pulse Resp BP BP Pulse Ox 01/26/24 01:21 85 16 128/87 97 01/25/24 23:00 92 15 122/89 96 01/25/24 21:30 95 21 122/89 99 01/25/24 20:22 99.9 F H 01/25/24 20:10 135 H 18 116/86 95 01/25/24 18:46 98.1 F 134 H 18 122/90 95 Intake and Output 01/25/24 01/25/24 01/26/24 14:59 22:59 06:59 Other: Weight 72.575 kg GENERAL: The patient is alert and oriented x3, not in any acute distress. Well developed, well nourished. HEENT: Pupils are round and equally reacting to light. EOMI. No scleral icterus. No conjunctival pallor. Normocephalic, atraumatic. No pharyngeal erythema. No thyromegaly. CARDIOVASCULAR: S1 and S2 present. No murmurs, rubs, or gallops. -PULMONARY: Chest is clear to auscultation, no wheezing , no crackles. Patient looks very anxious and tachypneic -ABDOMEN: Soft, mild left lower quadrant tenderness, no guarding or rebound tenderness aminata, nondistended, normoactive bowel sounds. No palpable organomegaly. MUSCULOSKELETAL: No joint swelling or deformity. EXTREMITIES: No cyanosis, clubbing, or pedal edema. NEUROLOGICAL: Gross neurological examination did not reveal any focal deficits. SKIN: No rashes. no petechiae. Results CBC & Chem 7: 01/25/24 19:07 01/25/24 19:07 Labs: Abnormal Lab Results - Last 24 Hours (Table) 01/25/24 01/25/24 01/25/24 Range/Units 19:07 19:07 21:19 WBC 16.5 H (3.8-10.6) k/uL Hgb 17.7 H (11.4-16.0) gm/dL Hct 50.9 H (34.0-46.0) % Plt Count 539 H (150-450) k/uL Neutrophils # 15.0 H (1.3-7.7) k/uL Lymphocytes # 0.9 L (1.0-4.8) k/uL Sodium 146 H (137-145) mmol/L Carbon Dioxide 13 L (22-30) mmol/L BUN 25 H (7-17) mg/dL Creatinine 3.26 H (0.52-1.04) mg/dL Glucose 219 H (74-99) mg/dL Plasma Lactic Acid Jose 6.3 H* (0.7-2.0) mmol/L Calcium 11.6 H (8.4-10.2) mg/dL Magnesium 2.4 H (1.6-2.3) mg/dL ALT 77 H (4-34) U/L Total Protein 11.0 H (6.3-8.2) g/dL Albumin 5.8 H (3.5-5.0) g/dL Assessment and Plan Assessment: Patient presents with GI symptoms of abdominal pain and vomiting and c onstipation. Rule out bowel obstruction versus gastroenteritis versus others Acute kidney injury with possible chronic kidney disease stage III Possible sepsis with fever and leukocytosis Severe dehydration and hypovolemia Atrial flutter versus sinus tachycardia Anxiety History of GERD Hyperlipidemia Chronic back pain History of migraines History of peripheral neuropathy History of depression, not active issue and patient denies current suicidal or homicidal ideation Elevated lactic acid came back to normal Plan: Will start the patient on Zosyn Continue with aggressive IV hydration 130 mL/h Order CT of the abdomen with oral contrast only and consult general surgery team Nephrology team already on the case consulted also will ask cardiology to see the patient for possible atrial flutter 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 Continue same treatment. Continue with symptomatic treatment. Resume home medication. Monitor labs and vitals. DVT and GI prophylaxis. Further recommendations as per clinical course of the patient DVT prophylaxis: no Subcutaneous heparin for possible GI bleed GI Prophylaxis: Ppi PT/OT: Pending Prognosis is guarded
[2024-01-26 07:44] LABS: Basophils # (A) 0.1 k/uL (0-0.2); Basophils % (A) 0 %; Eosinophils # (A) 0.1 k/uL (0-0.7); Eosinophils % (A) 0 %; HCT 39.7 % (34.0-46.0); Lymphocytes # (A) 1.4 k/uL (1.0-4.8); Lymphocytes % (A) 9 %; MCH 34.8 pg (25.0-35.0); MCHC 34.8 g/dL (31.0-37.0); Mean Platelet Volume 8.7; Monocytes # (A) 1.2 k/uL (0-1.0); Monocytes % (A) 7 %; Neutrophils # (A) 13.2 k/uL (1.3-7.7); Neutrophils % (A) 83 %; Platelet Count 397 k/uL (150-450); RBC 3.97 m/uL (3.80-5.40); RDW 12.4 % (11.5-15.5)
[2024-01-26 07:48] LABS: HGB 13.8 gm/dL (11.4-16.0)
[2024-01-26] MEDS: ONDANSETRON 4 MG/2 ML VIAL IVP ONE (07:55)
[2024-01-26] MEDS: HYDROmorphone 0.5 MG/0.5 ML SYRINGE IVP STA (07:58)
[2024-01-26 07:59] LABS: ALT 15 U/L (4-34); AST 21 U/L (14-36); African American GFR (CKD) 54 (>60 ml/min/1.73 sqM); Albumin 4.7 g/dL (3.5-5.0); Alkaline Phosphatase 80 U/L (38-126); Anion Gap 12 mmol/L; Blood Urea Nitrogen 27 mg/dL (7-17); Calcium 9.6 mg/dL (8.4-10.2); Carbon Dioxide 19 mmol/L (22-30); Chloride 115 mmol/L (98-107); Glucose 123 mg/dL (74-99); Magnesium 2.3 mg/dL (1.6-2.3); Non-African American GFR(CKD) 47 (>60 ml/min/1.73 sqM); Potassium 4.5 mmol/L (3.5-5.1); Sodium 146 mmol/L (137-145); Total Bilirubin 0.6 mg/dL (0.2-1.3); Total Protein 7.6 g/dL (6.3-8.2)
[2024-01-26] MEDS: PIPERACILLIN-TAZOBACTAM 3.375 GM in SODIUM CHLORIDE 0.9% 100 ML IVPB SCH (08:43)
[2024-01-26 08:58] LABS: C Reactive Protein 1.2 mg/dL (<1.0)
[2024-01-26 09:08] LABS: Appearance,Urine Cloudy (Clear); Bacteria,Urine Rare /hpf; Bilirubin,Urine Negative (Negative); Blood,Urine Moderate (Negative); Color,Urine Yellow; Glucose,Urine (UA) Negative (Negative); Hyaline Casts,Urine 1 /lpf (0-2); Ketones,Urine Trace (Negative); Leukocyte Esterase,Urine Negative (Negative); Mucus,Urine Rare /hpf; Nitrite,Urine Negative (Negative); PH, Urine 5.5 (5.0-8.0); Protein,Urine 1+ (Negative); RBC,Urine 4 /hpf (0-5); Specific Gravity,Urine 1.027 (1.001-1.035); Squamous Epithelial Cell,Urine 9 /hpf (0-4); Urobilinogen,Urine <2.0 mg/dL (<2.0); WBC,Urine 4 /hpf (0-5)
[2024-01-26 09:54] LABS: HCG,Qualitative Serum Not Detected
--- NOTE | 2024-01-26 10:07 | CT ---
EXAMINATION: CT ABDOMEN AND PELVIS WITHOUT IV CONTRAST DATE OF EXAMINATION: 01/26/2024. COMPARISON: 12/03/2022. INDICATION: Abdominal pain and vomiting. PROCEDURE: Axial CT of the abdomen and pelvis was performed with sagittal and coronal reformatted i mages without contrast enhancement. The exam is limited because some types of pathology may not be ad equately demonstrated due to lack of contrast enhancement. CT dose lowering techniques were used, to include: automated exposure control, adjustment for patient size, and/or use of iterative reconstruct ion. FINDINGS: LOWER CHEST : The visualized lung bases are clear. There are no pleural or pericardial effusions. ABDOMEN: Liver and Biliary system: Normal. Adrenal glands: Normal. Kidneys and ureters: There are no renal stones or hydronephrosis. No ureteral stones are present.. Spleen: Normal. Pancreas: Normal. Gallbladder: Normal. Lymph nodes, Peritoneum and mesentery: There is no mesenteric or retroperitoneal lymphadenopathy. Gastrointestinal tract: There are no dilated loops of bowel or free intraperitoneal air. . The appe ndix is not clearly seen with no secondary changes of appendicitis identified. There is mild sigmoid diverticulosis without evidence of diverticulitis. Aorta/IVC: There is mild vascular calcification throughout the abdominal aorta without evidence of aneurysmal dilation. IVC normal. Abdominal wall: Normal. PELVIS: Fluid: There is no free fluid in the pelvis. Lymph Nodes: There is no pelvic or inguinal lymphadenopathy.. Urinary bladder: Normal. BONES: There are no osseous destructive lesions.. ADDITIONAL SIGNIFICANT FINDINGS: None. IMPRESSION: 1. No renal stones or hydronephrosis.. 2. No bowel obstruction or acute inflammatory process seen within the abdomen or pelvis.
--- NOTE | 2024-01-26 12:41 | P.GSCN ---
History of Present Illness Consult date: 01/26/24 History of present illness: CHIEF COMPLAINT: Abdominal pain HISTORY OF PRESENT ILLNESS: This is a 53-year-old female who presented to hospital with complaints of abdominal pain that moved up into the chest that started 2 days ago. She has been having nausea and vomiting. She does report that the emesis had been bloody but this has resolved. Last emesis was this mo rning with no blood in it. Patient reports having constipation her last bowel movement was Thursday. She does complain of epigastric tenderness. She has a known history of idiopathic gastroparesis and has required EGD with Botox injections to the pylorus. On also history of esophageal tears. Patient reports that her pain is currently controlled with pain medication. She had a CT scan abdomen and pelvis completed which reported no renal stones or hydronephrosis. No bowel obstruction or acute inflammatory process seen within the abdomen and pelvis. Her last EGD was in April 2020 and at that time she did receive Botox injection to the pylorus. Denies being on any blood thinners. PAST MEDICAL HISTORY: GERD/Reflux, Hyperlipidemia, Renal Disease, Gastroparesis, gastritis, esophageal tears, chronic low back pain, herniated lower discs, bilateral wrist tendonitis with R side worse, R shoulder pain past couple months, numbness to bilateral hand fingers when first wakes, migraines, instructed to sleep with HOB up 6 inches d/t heart rate dropping with sleep, vertigo, pyelonephritis, anxiety, bipolar, depression PAST SURGICAL HISTORY: Appendectomy and tubal ligation MEDICATIONS: See below ALLERGIES: See below SOCIAL HISTORY: No illicit drug use. Nicotine dependence REVIEW OF SYSTEMS: CONSTITUTIONAL: Denies fever or chills. HEENT: Denies blurred vision, vision changes, or eye pain. Denies hemoptysis CARDIOVASCULAR: Denies chest pain or pressure. RESPIRATORY: No shortness of breath. GASTROINTESTINAL: See HPI for pertinent findings HEMATOLOGIC: Denies bleeding disorders. GENITOURINARY: Denies any blood in urine or increased urinary frequency. SKIN: Denies pruitis. Denies rash. PHYSICAL EXAM: VITAL SIGNS: Reviewed GENERAL: Well-developed in no acute distress. HEENT: No sclera icterus. Extraocular movements grossly intact. Moist buccal mucosa. Head is atraumatic, normocephalic. No nasal drainage. ABDOMEN: Soft. Nondistended. Epigastric tenderness with palpation NEUROLOGIC: Alert and oriented. Cranial nerves II through XII grossly intact. LABORATORY DATA: WBC 16 Hgb 17.7 down to 13.8 platelets 397 Sodium 146 potassium is 4.5 creatinine 3.26 down to 1.38 Lactic acid 6.3-1.4 ALT 77 down to 15 Mildly elevated troponin IMAGING: CT scan abdomen pelvis as stated above ASSESSMENT: 1. Epigastric abdominal pain 2. Hematemesis 3. History of idiopathic gastroparesis with prior EGDs with Botox injections to the pylorus PLAN: -Patient scheduled for EGD tomorrow with Dr. Fraser -Continue IV Protonix -Continue to monitor hemoglobin -Continue to monitor for any signs or symptoms of bleeding -Downgrade diet to clear liquids Physician Property Portfolio Officer note has been reviewed by physician. Signing provider agrees with the documented findings, assessment, and plan of care. Past Medical History Past Medical History: GERD/Reflux, Hyperlipidemia, Renal Disease Additional Past Medical History / Comment(s): Gastroparesis, gastritis, esophageal tears, chronic low back pain, herniated lower discs, bilateral wrist tendonitis with R side worse, R shoulder pain past couple months, numbness to bilateral hand fingers when first wakes, migraines, instructed to sleep with HOB up 6 inches d/t heart rate dropping with sleep, vertigo, pyelonephritis, History of Any Multi-Drug Resistant Organisms: None Reported Past Surgical History: Appendectomy, Tubal Ligation Additional Past Surgical History / Comment(s): Botox injection "mouth" of stomach-R/T SPASMS , EGDs, colonoscopy, vaginal cyst drained. Past Anesthesia/Blood Transfusion Reactions: No Reported Reaction Additional Past Anesthesia/Blood Transfusion Reaction / Comm: Never had blood transfusion. Past Psychological History: Anxiety, Bipolar, Depression Smoking Status: Current every day smoker Past Alcohol Use History: None Reported Past Drug Use History: Marijuana - Past Family History Mother Family Medical History: Cancer Additional Family Medical History / Comment(s): Mother is living. She has had breast cancer and 2 back surgeries. Father Family Medical History: No Reported History Additional Family Medical History / Comment(s): Father had ETOH abuse and was manic depressive. He after a fall where he fractured his back then "drank" himself to . Brother(s) Family Medical History: Neurologic Disorder Sister(s) Family Medical History: No Reported History Son(s) Family Medical History: No Reported History Daughter(s) Family Medical History: No Reported History Medications and Allergies Home Medications Medication Instructions Recorded Confirmed Type HYDROcodone/APAP 7.5-325MG [[place] 1 tab PO BID PRN 05/12/23 01/25/24 History 7.5-325] Metoclopramide [Reglan] 10 mg PO QID PRN 01/25/24 01/25/24 History Ondansetron Odt [Zofran Odt] 8 mg PO BID PRN 01/25/24 01/25/24 History Allergies Allergy/AdvReac Type Severity Reaction Status Date / Time sulfamethoxazole Allergy Rash/Hives Verified 01/25/24 20:58 [From Bactrim] trimethoprim [From Bactrim] Allergy Rash/Hives Verified 01/25/24 20:58 Surgical - Exam Vital Signs Temp Pulse Resp BP Pulse Ox 98.1 F 134 H 18 122/90 95 01/25/24 18:46 01/25/24 18:46 01/25/24 18:46 01/25/24 18:46 01/25/24 18:46 Results - Labs 01/26/24 05:50 01/26/24 06:35 Abnormal Lab Results - Last 24 Hours (Table) 01/25/24 01/25/24 01/25/24 Range/Units 19:07 19:07 21:19 WBC 16.5 H (3.8-10.6) k/uL Hgb 17.7 H (11.4-16.0) gm/dL Hct 50.9 H (34.0-46.0) % Plt Count 539 H (150-450) k/uL Neutrophils # 15.0 H (1.3-7.7) k/uL Lymphocytes # 0.9 L (1.0-4.8) k/uL Monocytes # (0-1.0) k/uL Sodium 146 H (137-145) mmol/L Chloride (98-107) mmol/L Carbon Dioxide 13 L (22-30) mmol/L BUN 25 H (7-17) mg/dL Creatinine 3.26 H (0.52-1.04) mg/dL Glucose 219 H (74-99) mg/dL Plasma Lactic Acid Jose 6.3 H* (0.7-2.0) mmol/L Calcium 11.6 H (8.4-10.2) mg/dL Magnesium 2.4 H (1.6-2.3) mg/dL ALT 77 H (4-34) U/L C-Reactive Protein (<1.0) mg/dL Total Protein 11.0 H (6.3-8.2) g/dL Albumin 5.8 H (3.5-5.0) g/dL Urine Appearance (Clear) Urine Protein (Negative) Urine Ketones (Negative) Urine Blood (Negative) Ur Squamous Epith Cells (0-4) /hpf Urine Bacteria (None) /hpf Urine Mucus (None) /hpf 01/26/24 01/26/24 01/26/24 Range/Units 05:50 06:35 08:42 WBC 16.0 H (3.8-10.6) k/uL Hgb (11.4-16.0) gm/dL Hct (34.0-46.0) % Plt Count (150-450) k/uL Neutrophils # 13.2 H (1.3-7.7) k/uL Lymphocytes # (1.0-4.8) k/uL Monocytes # 1.2 H (0-1.0) k/uL Sodium 146 H (137-145) mmol/L Chloride 115 H (98-107) mmol/L Carbon Dioxide 19 L (22-30) mmol/L BUN 27 H (7-17) mg/dL Creatinine 1.38 H (0.52-1.04) mg/dL Glucose 123 H (74-99) mg/dL Plasma Lactic Acid Jose (0.7-2.0) mmol/L Calcium (8.4-10.2) mg/dL Magnesium (1.6-2.3) mg/dL ALT (4-34) U/L C-Reactive Protein 1.2 H (<1.0) mg/dL Total Protein (6.3-8.2) g/dL Albumin (3.5-5.0) g/dL Urine Appearance Cloudy H (Clear) Urine Protein 1+ H (Negative) Urine Ketones Trace H (Negative) Urine Blood Moderate H (Negative) Ur Squamous Epith Cells 9 H (0-4) /hpf Urine Bacteria Rare H (None) /hpf Urine Mucus Rare H (None) /hpf Diabetes panel 01/25/24 01/26/24 Range/Units 19:07 06:35 Sodium 146 H 146 H (137-145) mmol/L Potassium 4.8 4.5 (3.5-5.1) mmol/L Chloride 103 115 H (98-107) mmol/L Carbon Dioxide 13 L 19 L (22-30) mmol/L BUN 25 H 27 H (7-17) mg/dL Creatinine 3.26 H 1.38 H (0.52-1.04) mg/dL Glucose 219 H 123 H (74-99) mg/dL Calcium 11.6 H 9.6 (8.4-10.2) mg/dL AST 32 21 (14-36) U/L ALT 77 H 15 (4-34) U/L Alkaline Phosphatase 112 80 (38-126) U/L Total Protein 11.0 H 7.6 (6.3-8.2) g/dL Albumin 5.8 H 4.7 (3.5-5.0) g/dL Thyroid panel 01/26/24 Range/Units 06:35 TSH 0.841 (0.465-4.680) mIU/L Calcium panel 01/25/24 01/25/24 01/26/24 Range/Units 19:07 22:00 06:35 Calcium 11.6 H 9.6 (8.4-10.2) mg/dL Phosphorus 4.3 4.0 (2.5-4.5) mg/dL Albumin 5.8 H 4.7 (3.5-5.0) g/dL Pituitary panel 01/25/24 01/26/24 Range/Units 19:07 06:35 Sodium 146 H 146 H (137-145) mmol/L Potassium 4.8 4.5 (3.5-5.1) mmol/L Chloride 103 115 H (98-107) mmol/L Carbon Dioxide 13 L 19 L (22-30) mmol/L BUN 25 H 27 H (7-17) mg/dL Creatinine 3.26 H 1.38 H (0.52-1.04) mg/dL Glucose 219 H 123 H (74-99) mg/dL Calcium 11.6 H 9.6 (8.4-10.2) mg/dL TSH 0.841 (0.465-4.680) mIU/L Adrenal panel 01/25/24 01/26/24 Range/Units 19:07 06:35 Sodium 146 H 146 H (137-145) mmol/L Potassium 4.8 4.5 (3.5-5.1) mmol/L Chloride 103 115 H (98-107) mmol/L Carbon Dioxide 13 L 19 L (22-30) mmol/L BUN 25 H 27 H (7-17) mg/dL Creatinine 3.26 H 1.38 H (0.52-1.04) mg/dL Glucose 219 H 123 H (74-99) mg/dL Calcium 11.6 H 9.6 (8.4-10.2) mg/dL Total Bilirubin 0.9 0.6 (0.2-1.3) mg/dL AST 32 21 (14-36) U/L ALT 77 H 15 (4-34) U/L Alkaline Phosphatase 112 80 (38-126) U/L Total Protein 11.0 H 7.6 (6.3-8.2) g/dL Albumin 5.8 H 4.7 (3.5-5.0) g/dL
--- NOTE | 2024-01-26 13:26 | P.NPCON ---
History of Present Illness - Reason for Consult acute renal failure - History of Present Illness Patient is a 43-year-old female with history of chronic back pain, hyperlipidemia, depression and gastroesophageal reflux disease. She is admitted to the hospital with complaints of nausea and vomiting over the last 2 days. Patient has had decreased oral intake. No previous history of kidney diseases. Serum creatinine was 3.2 on admission and decreased to 1.38. Patient has been receiving IV fluids. No significant urinary symptoms. No hypotension documented. Overall feeling better. No history of fever cough or abdominal pain Review of Systems As per HPI Past Medical History Past Medical History: GERD/Reflux, Hyperlipidemia, Renal Disease Additional Past Medical History / Comment(s): Gastroparesis, gastritis, esophageal tears, chronic low back pain, herniated lower discs, bilateral wrist tendonitis with R side worse, R shoulder pain past couple months, numbness to bilateral hand fingers when first wakes, migraines, instructed to sleep with HOB up 6 inches d/t heart rate dropping with sleep, vertigo, pyelonephritis, History of Any Multi-Drug Resistant Organisms: None Reported Past Surgical History: Appendectomy, Tubal Ligation Additional Past Surgical History / Comment(s): Botox injection "mouth" of stomach-R/T SPASMS , EGDs, colonoscopy, vaginal cyst drained. Past Anesthesia/Blood Transfusion Reactions: No Reported Reaction Additional Past Anesthesia/Blood Transfusion Reaction / Comment(s): Never had blood transfusion. Past Psychological History: Anxiety, Bipolar, Depression Smoking Status: Current every day smoker Past Alcohol Use History: None Reported Past Drug Use History: Marijuana - Past Family History Mother Family Medical History: Cancer Additional Family Medical History / Comment(s): Mother is living. She has had breast cancer and 2 back surgeries. Father Family Medical History: No Reported History Additional Family Medical History / Comment(s): Father had ETOH abuse and was manic depressive. He after a fall where he fractured his back then "drank" himself to . Brother(s) Family Medical History: Neurologic Disorder Sister(s) Family Medical History: No Reported History Son(s) Family Medical History: No Reported History Daughter(s) Family Medical History: No Reported History Medications and Allergies Home Medications Medication Instructions Recorded Confirmed Type HYDROcodone/APAP 7.5-325MG [[place] 1 tab PO BID PRN 05/12/23 01/25/24 History 7.5-325] Metoclopramide [Reglan] 10 mg PO QID PRN 01/25/24 01/25/24 History Ondansetron Odt [Zofran Odt] 8 mg PO BID PRN 01/25/24 01/25/24 History Allergies Allergy/AdvReac Type Severity Reaction Status Date / Time sulfamethoxazole Allergy Rash/Hives Verified 01/25/24 20:58 [From Bactrim] trimethoprim [From Bactrim] Allergy Rash/Hives Verified 01/25/24 20:58 Physical Exam Vitals: Vital Signs Temp Pulse Pulse Resp BP BP Pulse Ox 01/26/24 07:53 90 18 126/68 96 01/26/24 01:21 85 16 128/87 97 01/25/24 23:00 92 15 122/89 96 01/25/24 21:30 95 21 122/89 99 01/25/24 20:22 99.9 F H 01/25/24 20:10 135 H 18 116/86 95 01/25/24 18:46 98.1 F 134 H 18 122/90 95 Intake and Output 01/25/24 01/26/24 01/26/24 22:59 06:59 14:59 Other: Weight 72.575 kg Patient is awake, comfortable, no acute distress Examination of the heart S1 and S2 Examination of the lungs bilateral breath sounds are heard Abdomen is soft nontender Examination of lower extremities shows no evidence of edema BLIND EYELETTER exam grossly intact Results - Lab Results Most recent lab results Calcium 9.6 mg/dL (8.4-10.2) 01/26/24 06:35 Phosphorus 4.0 mg/dL (2.5-4.5) 01/26/24 06:35 Magnesium 2.3 mg/dL (1.6-2.3) 01/26/24 06:35 01/26/24 05:50 01/26/24 06:35 Assessment and Plan Assessment: 1. Acute kidney injury secondary to severe volume depletion, currently improved with IV hydration. UA shows 1+ protein and moderate blood. This will be repeated later on. Abdominal CT does not reveal any abnormalities with the renal system 2. Severe volume depletion, currently improved 3. Tachycardia 4. Chronic back pain Plan: Continue with IV fluids Repeat UA in a.m. Repeat labs in a.m. Thank you for the consultation. We will continue to follow the patient with you during her hospitalization.
--- NOTE | 2024-01-26 13:38 | P.CRDCN ---
History of Present Illness Consult date: 01/26/24 Reason for Consult (text): Atrial flutter versus sinus tachycardia, chest pain History of present illness: History of present illness: This is a 43-year-old female with past medical history of gastroesophageal reflux disease, hyperlipidemia. We have been asked to evaluate the patient for atrial flutter versus sinus tachycardia and chest pain. Patient denies any previous cardiac history does not follow with a student assistant. No history of d iabetes, hypertension or hyperlipidemia. Patient states that she has been vomiting everything unable to keep any food or liquids down and her chest was hurting and she could not catch her breath. Per ER notes, patient came into the hospital due to altered mental status. Patient is an active tobacco smoker. She also uses marijuana occasionally last time was 2 days ago. Rare alcohol use. EKG sinus tachycardia 135 bpm Chest x-ray: No acute process CT of the abdomen and pelvis reveals no renal stones or hydronephrosis. No bowel obstruction or acute inflammatory process. WBC 16, hemoglobin 13.8, platelet count 397. Sodium 146, potassium 4.5, initial BUN 25 now 27, creatinine initially 3.26 and now 1.38. Lactic acid 6.3. Troponin 0.018, 0.178. TSH 0.841. hCG not detected. Urinalysis trace ketones, moderate blood. Home cardiac medications: None Review Of Systems: At the time of my exam: CONSTITUTIONAL: Denies fever or chills. HEENT: Denies blurred vision, vision changes, or eye pain. Denies hemoptysis CARDIOVASCULAR: + chest pain. Denies orthopnea. Denies PND. Denies palpitations RESPIRATORY: + shortness of breath. GASTROINTESTINAL: + abdominal pain. Denies nausea or vomiting. HEMATOLOGIC: Denies bleeding disorders. GENITOURINARY: Denies any blood in urine. SKIN: Denies pruitis. Denies rash. Physical examination: Gen: This is a 43-year-old female in no acute distress VS: reviewed HEENT: Head is atraumatic, normocephalic. Pupils equal, round. Sclerae is anicteric. NECK: Supple. No JVD. LUNGS: Clear to auscultation. No wheezes or rhonchi. No intercostal retract ions. HEART: Regular rate and rhythm. No murmur. ABDOMEN: Soft EXTREMITIES: No pedal edema. No calf tenderness. NEUROLOGICAL: Patient is awake, alert and oriented x3. Assessment: Tachycardia Acute kidney injury Epigastric abdominal pain with amount of emesis History of idiopathic gastroparesis Plan: Resume patient's home cardiac medications Obtain third troponin Obtain 2-D echocardiogram and Doppler study to assess cardiac structure and function Further recommendations to follow based upon clinical course General surgery is following with plan for EGD once cleared by cardiology. Thank you kindly for this consultation. Nurse practitioner note has been reviewed, I agree with documented findings and plan of care. Patient was seen and examined. Past Medical History Past Medical History: GERD/Reflux, Hyperlipidemia, Renal Disease Additional Past Medical History / Comment(s): Gastroparesis, gastritis, esophageal tears, chronic low back pain, herniated lower discs, bilateral wrist tendonitis with R side worse, R shoulder pain past couple months, numbness to bilateral hand fingers when first wakes, migraines, instructed to sleep with HOB up 6 inches d/t heart rate dropping with sleep, vertigo, pyelonephritis, History of Any Multi-Drug Resistant Organisms: None Reported Past Surgical History: Appendectomy, Tubal Ligation Additional Past Surgical History / Comment(s): Botox injection "mouth" of stomach-R/T SPASMS , EGDs, colonoscopy, vaginal cyst drained. Past Anesthesia/Blood Transfusion Reactions: No Reported Reaction Additional Past Anesthesia/Blood Transfusion Reaction / Comment(s): Never had blood transfusion. Past Psychological History: Anxiety, Bipolar, Depression Smoking Status: Current every day smoker Past Alcohol Use History: None Reported Past Drug Use History: Marijuana - Past Family History Mother Family Medical History: Cancer Additional Family Medical History / Comment(s): Mother is living. She has had breast cancer and 2 back surgeries. Father Family Medical History: No Reported History Additional Family Medical History / Comment(s): Father had ETOH abuse and was manic depressive. He after a fall where he fractured his back then "drank" himself to . Brother(s) Family Medical History: Neurologic Disorder Sister(s) Family Medical History: No Reported History Son(s) Family Medical History: No Reported History Daughter(s) Family Medical History: No Reported History Medications and Allergies Home Medications Medication Instructions Recorded Confirmed Type HYDROcodone/APAP 7.5-325MG [[place] 1 tab PO BID PRN 05/12/23 01/25/24 History 7.5-325] Metoclopramide [Reglan] 10 mg PO QID PRN 01/25/24 01/25/24 History Ondansetron Odt [Zofran Odt] 8 mg PO BID PRN 01/25/24 01/25/24 History Allergies Allergy/AdvReac Type Severity Reaction Status Date / Time sulfamethoxazole Allergy Rash/Hives Verified 01/25/24 20:58 [From Bactrim] trimethoprim [From Bactrim] Allergy Rash/Hives Verified 01/25/24 20:58 Physical Exam Vitals: Vital Signs Temp Pulse Pulse Resp BP BP Pulse Ox 01/26/24 07:53 90 18 126/68 96 01/26/24 01:21 85 16 128/87 97 01/25/24 23:00 92 15 122/89 96 01/25/24 21:30 95 21 122/89 99 01/25/24 20:22 99.9 F H 01/25/24 20:10 135 H 18 116/86 95 01/25/24 18:46 98.1 F 134 H 18 122/90 95 Intake and Output 01/25/24 01/26/24 01/26/24 22:59 06:59 14:59 Other: Weight 72.575 kg Results 01/26/24 05:50 01/26/24 06:35 Cardiac Enzymes 01/25/24 01/25/24 01/26/24 Range/Units 19:07 19:07 06:35 AST 32 21 (14-36) U/L Troponin I 0.018 (0.000-0.034) ng/mL Coagulation 01/25/24 Range/Units 19:07 PT 10.7 (10.0-12.5) sec APTT 25.7 (22.0-30.0) sec CBC 01/25/24 01/26/24 Range/Units 19:07 05:50 WBC 16.5 H 16.0 H (3.8-10.6) k/uL RBC 5.17 3.97 (3.80-5.40) m/uL Hgb 17.7 H 13.8 D (11.4-16.0) gm/dL Hct 50.9 H 39.7 (34.0-46.0) % Plt Count 539 H 397 (150-450) k/uL Comprehensive Metabolic Panel 01/25/24 01/26/24 Range/Units 19:07 06:35 Sodium 146 H 146 H (137-145) mmol/L Potassium 4.8 4.5 (3.5-5.1) mmol/L Chloride 103 115 H (98-107) mmol/L Carbon Dioxide 13 L 19 L (22-30) mmol/L BUN 25 H 27 H (7-17) mg/dL Creatinine 3.26 H 1.38 H (0.52-1.04) mg/dL Glucose 219 H 123 H (74-99) mg/dL Calcium 11.6 H 9.6 (8.4-10.2) mg/dL AST 32 21 (14-36) U/L ALT 77 H 15 (4-34) U/L Alkaline Phosphatase 112 80 (38-126) U/L Total Protein 11.0 H 7.6 (6.3-8.2) g/dL Albumin 5.8 H 4.7 (3.5-5.0) g/dL Current Medications Generic Name Dose Route Start Last Admin Trade Name Freq PRN Reason Stop Dose Admin Sodium Chloride 1,000 mls @ 130 mls/hr 01/25/24 21:00 01/26/24 02:38 Saline 0.9% IV 130 mls/hr .[id number] ALYSSA Administration Piperacillin Sod/Tazobactam 100 mls @ 25 mls/hr 01/26/24 08:00 01/26/24 08:43 Sod 3.375 gm/ Sodium Chloride IVPB 25 mls/hr Q8HR ALYSSA Administration Protocol Iopamidol 30 ml 01/26/24 07:29 Iopamidol Contrast (Oral Use) Vial PO 01/27/24 07:[address] Scan Morphine Sulfate 4 mg 01/25/24 20:46 01/26/24 05:56 Morphine Sulfate 4 Mg/Ml Syringe IV 4 mg Q4HR PRN Administration Severe Pain (Scale 7 to 10) Naloxone HCl 0.2 mg 01/25/24 20:46 Naloxone 0.4 Mg/Ml 1 Ml Vial IV Q2M PRN Opioid Reversal Ondansetron HCl 4 mg 01/25/24 20:46 01/26/24 02:33 Ondansetron 4 Mg/2 Ml Vial IVP 4 mg Q8HR PRN Administration Nausea And Vomiting Pantoprazole Sodium 40 mg 01/25/24 21:00 01/26/24 08:43 Pantoprazole 40 Mg/10 Ml Vial IV 40 mg DAILY ALYSSA Administration Intake and Output 01/25/24 01/26/24 01/26/24 22:59 06:59 14:59 Other: Weight 72.575 kg 01/26/24 05:50 01/26/24 06:35
[2024-01-26] MEDS: PANTOPRAZOLE 40 MG/10 ML VIAL IV SCH (21:15)
--- NOTE | 2024-01-27 07:43 | P.PN ---
Subjective This is a pleasant 43 years old female with past medical history of multiple medical problems including GERD, hyperlipidemia, chronic back pain, migraine, finger numbness is suspicious for peripheral neuropathy and depression. Presents because of feeling pain all over and has been vomiting for the last 2 days. Patient looks very anxious because of her abdominal pain and nausea and she states she has history of anxiety. However she told me the main reason she came to the hospital because she has been vomiting with a blood for the last 2 days, yesterday she vomited about 6-7 times in 1 hour, she states she cannot keep or hold anything down Also has been complaining from abdominal pain, she points to the left lower quadrant stating it was 10/10 on presentation but now 8/10, nonspecific. No bowel movement for the last 3 nights and she has poor appetite She complains also from back pain but this is a chronic She complains from dizziness when she stands up However she denies urinary specific symptoms although she claims it is orange in color Presentation there was some mention of chest pain but patient denies chest pain to me, she feels some anxiety and that made her breathing faster than the breathing difficulty. No coughing. She denies headache dizziness weakness or numbness She states that her menstrual cycle has been irregular lately she had 2 cycles in 1 month and the last cycle lasted 10 days which is unusual for her because it is usually 4 days. She says she is 44 and she thinks that her menopause. She used to follow-up with Dr. Victoria but her office not working anymore and she is looking for PCP now and she ran out of her Protonix for the last 3 weeks. Patient on presentation was tachycardic, blood pressure was 116/86. She developed low-grade temperature 99.9. Sodium 146. Creatinine elevated 3.2 however recently the range was 1.3-1.5. She has some leukocytosis about 16.5 and hemoglobin 17 but also looks like concentrated samples as patient is dehydrated INR is unremarkable as well as liver enzymes. Chest x-ray does not show any acute process Lactic acid was significantly elevated 6.3 came back to normal 1.4 EKG is read as atrial flutter with a rate of 135 mild also is suspicious for sinus tachycardia as well therefore we are going to consult cardiology team Patient in the emergency room received several boluses of normal saline and given 1 dose of Rocephin. 01/27/2024 Patient awake alert today She states had no more abdominal pain or vomiting of blood. She had 1 normal bowel movement She denies chest pain or dyspnea She denies any other complaints She wants to go home today. Patient informed she is not ready for discharge and she agrees to stay. Labs from today are still pending Patient currently on normal sun 130 mL/h on Zosyn Plan for EGD today Review of systems CONSTITUTIONAL: No fever, no malaise, no fatigue. HEENT: No recent visual problems or hearing problems. Denied any sore throat. CARDIOVASCULAR: No orthopnea, PND, no palpitations, no syncope. PULMONARY: No shortness of breath, no cough, no hemoptysis. GASTROINTESTINAL: No diarrhea, no nausea, no vomiting, no abdominal pain. Normoactive bowel sounds. NEUROLOGICAL: No headaches, no weakness, no numbness. Active Medications Generic Name Dose Route Start Last Admin Trade Name Freq PRN Reason Stop Dose Admin Sodium Chloride 1,000 mls @ 130 mls/hr 01/25/24 21:00 01/27/24 06:11 Saline 0.9% IV 130 mls/hr .[id number] ALYSSA Administration Piperacillin Sod/Tazobactam 100 mls @ 25 mls/hr 01/26/24 08:00 01/27/24 00:14 Sod 3.375 gm/ Sodium Chloride IVPB 25 mls/hr Q8HR ALYSSA Administration Protocol Morphine Sulfate 4 mg 01/25/24 20:46 01/27/24 06:35 Morphine Sulfate 4 Mg/Ml Syringe IV 4 mg Q4HR PRN Administration Severe Pain (Scale 7 to 10) Naloxone HCl 0.2 mg 01/25/24 20:46 Naloxone 0.4 Mg/Ml 1 Ml Vial IV Q2M PRN Opioid Reversal Ondansetron HCl 4 mg 01/25/24 20:46 01/27/24 06:43 Ondansetron 4 Mg/2 Ml Vial IVP 4 mg Q8HR PRN Administration Nausea And Vomiting Pantoprazole Sodium 40 mg 01/26/24 21:00 01/26/24 21:15 Pantoprazole 40 Mg/10 Ml Vial IV 40 mg BID ALYSSA Administration Objective - Vital Signs Vital signs: Vital Signs Temp 98.9 F 01/27/24 00:41 Pulse 75 01/27/24 06:00 Resp 20 01/27/24 06:00 BP 124/68 01/27/24 06:00 Pulse Ox 100 01/26/24 18:19 FiO2 - Exam GENERAL: The patient is alert and oriented x3, not in any acute distress. Well developed, well nourished. HEENT: Pupils are round and equally reacting to light. EOMI. No scleral icterus. No conjunctival pallor. Normocephalic, atraumatic. No pharyngeal erythema. No thyromegaly. CARDIOVASCULAR: S1 and S2 present. No murmurs, rubs, or gallops. PULMONARY: Chest is clear to auscultation, no wheezing , no crackles. ABDOMEN: Soft, nontender, nondistended, normoactive bowel sounds. No palpable organomegaly. MUSCULOSKELETAL: No joint swelling or deformity. EXTREMITIES: No cyanosis, clubbing, or pedal edema. NEUROLOGICAL: Gross neurological examination did not reveal any focal deficits. SKIN: No rashes. no petechiae. - Labs CBC & Chem 7: 01/26/24 05:50 01/26/24 06:35 Labs: Abnormal Lab Results - Last 24 Hours (Table) 01/26/24 01/26/24 01/26/24 Range/Units 05:50 06:35 08:42 WBC 16.0 H (3.8-10.6) k/uL Neutrophils # 13.2 H (1.3-7.7) k/uL Monocytes # 1.2 H (0-1.0) k/uL Sodium 146 H (137-145) mmol/L Chloride 115 H (98-107) mmol/L Carbon Dioxide 19 L (22-30) mmol/L BUN 27 H (7-17) mg/dL Creatinine 1.38 H (0.52-1.04) mg/dL Glucose 123 H (74-99) mg/dL Troponin I (0.000-0.034) ng/mL C-Reactive Protein 1.2 H (<1.0) mg/dL Urine Appearance Cloudy H (Clear) Urine Protein 1+ H (Negative) Urine Ketones Trace H (Negative) Urine Blood Moderate H (Negative) Ur Squamous Epith Cells 9 H (0-4) /hpf Urine Bacteria Rare H (None) /hpf Urine Mucus Rare H (None) /hpf 01/26/24 01/26/24 Range/Units 10:45 15:01 WBC (3.8-10.6) k/uL Neutrophils # (1.3-7.7) k/uL Monocytes # (0-1.0) k/uL Sodium (137-145) mmol/L Chloride (98-107) mmol/L Carbon Dioxide (22-30) mmol/L BUN (7-17) mg/dL Creatinine (0.52-1.04) mg/dL Glucose (74-99) mg/dL Troponin I 0.178 H* 0.136 H* (0.000-0.034) ng/mL C-Reactive Protein (<1.0) mg/dL Urine Appearance (Clear) Urine Protein (Negative) Urine Ketones (Negative) Urine Blood (Negative) Ur Squamous Epith Cells (0-4) /hpf Urine Bacteria (None) /hpf Urine Mucus (None) /hpf Assessment and Plan Assessment: Patient presents with GI symptoms of abdominal pain and vomiting and constipation. Rule out bowel obstruction versus gastroenteritis versus others Acute kidney injury with possible chronic kidney disease stage III Possible sepsis with fever and leukocytosis Severe dehydration and hypovolemia Atrial flutter versus sinus tachycardia Anxiety History of GERD Hyperlipidemia Chronic back pain History of migraines History of peripheral neuropathy History of depression, not active issue and patient denies current suicidal or homicidal ideation Elevated lactic acid came back to normal Plan: Patient at some risk from EGD, acceptable to proceed with the procedure from medical review and no contraindication Will start the patient on Zosyn Continue with aggressive IV hydration 130 mL/h Order CT of the abdomen with oral contrast only and consult general surgery team Nephrology team already on the case consulted also will ask cardiology to see the patient for possible atrial flutter 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 Continue same treatment. Continue with symptomatic treatment. Resume home medication. Monitor labs and vitals. DVT and GI prophylaxis. Further recommendations as per clinical course of the patient DVT prophylaxis: no Subcutaneous heparin for possible GI bleed GI Prophylaxis: Ppi PT/OT: Pending Prognosis is guarded
[2024-01-27 07:55] LABS: Basophils % (A) 0 %; Eosinophils # (A) 0.1 k/uL (0-0.7); Eosinophils % (A) 1 %; HCT 32.4 % (34.0-46.0); HGB 11.1 gm/dL (11.4-16.0); Lymphocytes # (A) 3.4 k/uL (1.0-4.8); Lymphocytes % (A) 35 %; MCH 34.3 pg (25.0-35.0); MCHC 34.3 g/dL (31.0-37.0); MCV 100.1 fL (80.0-100.0); Mean Platelet Volume 7.3; Monocytes # (A) 0.5 k/uL (0-1.0); Monocytes % (A) 5 %; Neutrophils # (A) 5.7 k/uL (1.3-7.7); Neutrophils % (A) 58 %; Platelet Count 312 k/uL (150-450); RBC 3.24 m/uL (3.80-5.40); RDW 11.8 % (11.5-15.5); WBC 9.9 k/uL (3.8-10.6)
[2024-01-27 08:18] LABS: African American GFR (CKD) >90 (>60 ml/min/1.73 sqM); Anion Gap 6 mmol/L; Blood Urea Nitrogen 16 mg/dL (7-17); Calcium 8.6 mg/dL (8.4-10.2); Carbon Dioxide 22 mmol/L (22-30); Chloride 110 mmol/L (98-107); Glucose 95 mg/dL (74-99); Non-African American GFR(CKD) >90 (>60 ml/min/1.73 sqM); Potassium 3.8 mmol/L (3.5-5.1); Sodium 138 mmol/L (137-145)
[2024-01-27] MEDS ORDERED: ALPRAZolam 0.5 MG TAB PO PRN (09:46)
[2024-01-27] MEDS ORDERED: NITROGLYCERIN SL TABS 0.4 MG TAB SUBLINGUAL PRN (09:46)
[2024-01-27] MEDS ORDERED: ALPRAZolam 0.25 MG TAB PO PRN (09:46)
[2024-01-27] MEDS: ASPIRIN 325 MG TAB PO STA (09:55)
[2024-01-27] MEDS: ATORVASTATIN 80 MG TAB PO STA (09:55)
[2024-01-27] MEDS: SODIUM CHLORIDE 0.9% 1,000 ML IV ONE (10:22)
[2024-01-27] MEDS ORDERED: fentaNYL (PF) 50 MCG/ML 2 ML AMP ONE (10:31)
[2024-01-27] MEDS: MIDAZOLAM 2 MG/2 ML VIAL IVP ONE (10:59)
[2024-01-27] MEDS: LIDOCAINE 1% INJ 10MG/ML (30 ML VIAL-PF) SQ ONE (10:59)
[2024-01-27] MEDS: fentaNYL (PF) 50 MCG/1 ML VIAL IVP ONE ×2 (10:59)
[2024-01-27] MEDS: IOPAMIDOL-370 100ML BTL INJ ONE (11:19)
--- NOTE | 2024-01-27 11:21 | P.PN ---
Subjective HISTORY OF PRESENT ILLNESS: This is a 43-year-old female with past medical history of gastroesophageal reflux disease, hyperlipidemia. We have been asked to evaluate the patient for atrial flutter versus sinus tachycardia and chest pain. Patient denies any previous cardiac history does not follow with a licensed guide. No history of diabetes, hypertension or hyperlipidemia. Patient states that she has been vomiting everything unable to keep any food or liquids down and her chest was hurting and she could not catch her breath. Per ER notes, patient came into the hospital due to altered mental status. Patient is an active tobacco smoker. She also uses marijuana occasionally last time was 2 days ago. Rare alcohol use. EKG sinus tachycardia 135 bpm Chest x-ray: No acute process CT of the abdomen and pelvis reveals no renal stones or hydronephrosis. No bowel obstruction or acute inflammatory process. WBC 16, hemoglobin 13.8, platelet count 397. Sodium 146, potassium 4.5, initial BUN 25 now 27, creatinine initially 3.26 and now 1.38. Lactic acid 6.3. Troponin 0.018, 0.178. TSH 0.841. hCG not detected. Urinalysis trace ketones, moderate blood. Home cardiac medications: None 01/27/2024 Patient examined this morning in the emergency room. Patient denies chest pain or pressure. Denies SOB. Denies any further episodes of vomiting. Vital signs are stable. Troponin 0.018. 0.178. 0.136. PHYSICAL EXAM: VITAL SIGNS: Reviewed. GENERAL: Well-developed in no acute distress. NECK: Supple. No JVD or thyromegaly LUNGS: Respirations even and unlabored. Lungs essentially clear to auscultation bilaterally. HEART: Regular rate and rhythm. S1 and S2 heard. EXTREMITIES: Normal range of motion. No clubbing or cyanosis. Peripheral pulses intact. No lower extremity edema ASSESSMENT: Elevated troponins, rule out underlying CAD Nausea and vomiting Sinus tachycardia Acute kidney injury Epigastric pain History of idiopathic gastroparesis PLAN: 2D echo has been ordered. Await results Patient to undergo cardiac catheterization today with Dr. Flores General surgery consulted with plans for eventual EGD Further recommendations pending patient course Nurse practitioner note has been reviewed by physician. Signing provider agrees with the documented findings, assessment, and plan of care documented by PATIENT SVCS MGR as a scribe. Objective - Vital Signs Vital signs: Vital Signs Temp 97.2 F L 01/27/24 07:50 Pulse 73 01/27/24 07:50 Resp 18 01/27/24 07:50 BP 129/96 01/27/24 07:50 Pulse Ox 96 01/27/24 07:50 FiO2 - Labs CBC & Chem 7: 01/27/24 07:40 01/27/24 07:40 Labs: Abnormal Lab Results - Last 24 Hours (Table) 01/26/24 01/26/24 01/27/24 Range/Units 10:45 15:01 07:40 RBC 3.24 L (3.80-5.40) m/uL Hgb 11.1 L (11.4-16.0) gm/dL Hct 32.4 L (34.0-46.0) % MCV 100.1 H (80.0-100.0) fL Chloride (98-107) mmol/L Troponin I 0.178 H* 0.136 H* (0.000-0.034) ng/mL 01/27/24 Range/Units 07:40 RBC (3.80-5.40) m/uL Hgb (11.4-16.0) gm/dL Hct (34.0-46.0) % MCV (80.0-100.0) fL Chloride 110 H (98-107) mmol/L Troponin I (0.000-0.034) ng/mL
[2024-01-27] MEDS ORDERED: RX INFO: IV CONTRAST WAS GIVEN 1 EACH MISC MISCELLANE PRN (11:56)
--- NOTE | 2024-01-27 12:41 | CC ---
CARDIAC CATHETERIZATION REPORT INDICATIONS: Acute kym-UK-sydowpi elevation TX. PROCEDURE NOTE: After obtaining informed consent, left heart catheterization and coronary angiogram were performed via the right femoral artery using standard Rajesh catheters. The patient tolerated the procedure well without any obvious immediate complications. The femoral angiogram was performed, and Angio-Seal was deployed for hemostasis. The patient received moderate conscious sedation. Total sedation time was 25 minutes. FINDINGS: 1. Hemodynamics: Left ventricular end-diastolic pressure is 8 to 10 mm. There is no significant gradient across the aortic valve. 2. Left ventriculogram: Left ventriculogram is not performed. 3. Angiographic Data: a.Right Coronary Artery: Right coronary artery is a codominant vessel and is free of significant disease. Left main coronary artery is a normal-sized vessel and is free of stenosis, divides into left anterior descending coronary artery and circumflex coronary artery. LAD and its branches, circumflex coronary artery and its branches are free of significant stenosis. CONCLUSIONS: 1. Normal coronaries. 2. Normal left ventricular end-diastolic pressure. PLAN: I reviewed angiographic data with the patient and told her that her elevated troponin is not related to acute myocardial infarction. Her elevated troponin could be due to supply-demand mismatch and that she does not require any intervention and her management is going to be in the form of risk factor modification. MMODL / IJN: [id number] /
[2024-01-27] MEDS: HYDROcodone/APAP 7.5-325MG 1 EACH TAB PO ONE ×2 (13:32→15:25)
--- NOTE | 2024-01-27 14:50 | P.PN ---
Subjective Progress Note Date: 01/27/24 CHIEF COMPLAINT: Abdominal pain and chest pain HISTORY OF PRESENT ILLNESS: Patient reports her abdominal pain is resolved. She has had no further vomiting. Patient evaluated by cardiology and scheduled for heart catheterization today. Per cardiology heart cath reported as normal and patient can proceed with EGD. Patient reports since being placed back on the Protonix she has noticed improvement in her abdominal pain. She has had no further hematemesis. WBC 9.9 Hgb down from 13.8 to 11.1 PHYSICAL EXAM: VITAL SIGNS: Reviewed. GENERAL: Well-developed in no acute distress. ABDOMEN: Soft. Nondistended. Nontender. NEUROLOGIC: Alert and oriented. Cranial nerves II through XII grossly intact. ASSESSMENT: 1. Epigastric abdominal pain 2. Hematemesis 3. History of idiopathic gastroparesis with prior EGDs with Botox injections to the pylorus 4. Chest pain evaluated by cardiology PLAN: -Patient scheduled for EGD tomorrow with Dr. Fraser -N.p.o. after midnight -Continue IV Protonix -Continue to monitor for any signs or symptoms of bleeding -Continue monitor hemoglobin Physician Lead Database Administrator note has been reviewed by physician. Signing provider agrees with the documented findings, assessment, and plan of care. Objective - Vital Signs Vital signs: Vital Signs Temp 97.2 F L 01/27/24 07:50 Pulse 48 L 01/27/24 12:20 Resp 20 01/27/24 12:20 BP 115/68 01/27/24 12:20 Pulse Ox 96 01/27/24 12:20 FiO2 Intake & Output 01/26/24 01/27/24 01/27/24 18:59 06:59 18:59 Intake Total 300 Balance 300 Intake: IV 300 - Labs CBC & Chem 7: 01/27/24 07:40 01/27/24 07:40 Labs: Abnormal Lab Results - Last 24 Hours (Table) 01/26/24 01/27/24 01/27/24 Range/Units 15:01 07:40 07:40 RBC 3.24 L (3.80-5.40) m/uL Hgb 11.1 L (11.4-16.0) gm/dL Hct 32.4 L (34.0-46.0) % MCV 100.1 H (80.0-100.0) fL Chloride 110 H (98-107) mmol/L Troponin I 0.136 H* (0.000-0.034) ng/mL Microbiology - Last 24 Hours (Table) 01/26/24 07:13 Blood Culture - Preliminary Blood
--- NOTE | 2024-01-27 17:29 | CA ---
Transthoracic Echo Report Name: Francy Alston Age: 43 Gender: F : 1980 Exam Date: 01/27/2024 16:25 Exam Location: [facility] Ht (in): 67 Wt (lb): 160 Ordering Physician: Haydee Mckeon Attending/Referring Phys: [id number], Linda Supervisor Coffee Marie Chiu RCS Procedure CPT: Indications: LVF Cardiac Hx: Technical Quality: Fair Contrast 1: Total Dose (mL): Contrast 2: Total Dose (mL): MEASUREMENTS (Male / Female) Normal Values 2D ECHO LV Diastolic Diameter PLAX 5.2 cm 4.2 - 5.9 / 3.9 - 5.3 cm LV Systolic Diameter PLAX 4.1 cm IVS Diastolic Thickness 0.5 cm 0.6 - 1.0 / 0.6 - 0.9 cm LVPW Diastolic Thickness 0.5 cm 0.6 - 1.0 / 0.6 - 0.9 cm LV Relative Wall Thickness 0.2 LVOT Diameter 2.0 cm LV Diastolic Volume MOD BP 102.7 cm??? 67 - 155 / 56 - 104 cm??? LV Systolic Volume MOD BP 36.9 cm??? 22 - 58 / 19 - 49 cm??? LV Ejection Fraction MOD BP 64.0 % >= 55 % LV Cardiac Index MOD BP 2119.3 cm???/min???m??? LV Diastolic Volume MOD 4C 92.4 cm??? LV Systolic Volume MOD 4C 31.8 cm??? LV Ejection Fraction MOD 4C 65.6 % LV Cardiac Index MOD 4C 1952.3 cm???/min???m??? LV Diastolic Length 4C 8.4 cm LV Systolic Length 4C 7.0 cm LV Diastolic Volume MOD 2C 113.4 cm??? LV Systolic Volume MOD 2C 42.2 cm??? LV Ejection Fraction MOD 2C 62.8 % LV Cardiac Index MOD 2C 2294.7 cm???/min???m??? LV Diastolic Length 2C 8.5 cm LV Systolic Length 2C 6.8 cm LA Volume 19.7 cm??? 18 - 58 / 22 - 52 cm??? LA Volume Index 10.6 cm???/m??? 16 - 28 cm???/m??? DOPPLER AV Peak Velocity 128.2 cm/s AV Peak Gradient 6.6 mmHg AV Mean Velocity 68.9 cm/s AV Mean Gradient 2.5 mmHg AV Velocity Time Integral 22.6 cm LVOT Peak Velocity 93.1 cm/s LVOT Peak Gradient 3.5 mmHg LVOT Velocity Time Integral 21.0 cm LVOT Stroke Volume 65.7 cm??? LVOT Stroke Volume Index 35.7 ml/m??? LVOT Cardiac Index 2117.8 cm???/min???m??? AV Area Cont Eq vti 2.9 cm??? AV Area Cont Eq pk 2.3 cm??? Mitral E Point Velocity 72.5 cm/s Mitral A Point Velocity 52.8 cm/s Mitral E to A Ratio 1.4 MV Deceleration Time 180.1 ms MV E' Velocity 9.4 cm/s Mitral E to MV E' Ratio 7.7 TR Peak Velocity 236.0 cm/s TR Peak Gradient 22.3 mmHg Right Ventricular Systolic Press 27.3 mmHg PV Peak Velocity 66.5 cm/s PV Peak Gradient 1.8 mmHg FINDINGS Left Ventricle Left ventricular ejection fraction is estimated at 60-65 %. Left ventricular wall thickness normal. Left ventricular cavity size normal. No obvious regional wall motion abnormalities. Right Ventricle Normal right ventricular size and function. Right ventricular systolic pressure within normal limits. Right Atrium Normal right atrial size. Left Atrium Normal left atrial size. Mitral Valve Structurally normal mitral valve. No evidence for mitral valve prolapse. No mitral stenosis. Trace mitral regurgitation. Aortic Valve Trileaflet aortic valve. No aortic valve stenosis or regurgitation. Tricuspid Valve Structurally normal tricuspid valve. No tricuspid stenosis. Trace tricuspid regurgitation. Pulmonic Valve Structurally normal pulmonic valve. No pulmonic stenosis. Trace pulmonic regurgitation. Pericardium No pericardial effusion. Aorta Normal size aortic root and proximal ascending aorta. CONCLUSIONS Normal LV function Previewed by: Dr. Kodak Flores MD (Electronically Signed) Final Date: 27 January 2024 17:28
[2024-01-27] MEDS: SODIUM CHLORIDE 0.9% 1,000 ML in EMPTY BAG 1 BAG IV SCH (17:37)
[2024-01-27] MEDS: SODIUM CHLORIDE 0.9% 1,000 ML IV SCH (17:38)
[2024-01-28] MEDS ORDERED: HEPARIN SODIUM,PORCINE 10,000 UNIT in SODIUM CHLORIDE 0.9% 1,000 ML IRRIGATION PRN (07:00)
[2024-01-28] MEDS ORDERED: HEPARIN SODIUM,PORCINE (1 ML) 2,500 UNIT in SODIUM CHLORIDE 0.9% 250 ML IRRIGATION PRN (07:00)
[2024-01-28 08:14] LABS: HCT 31.1 % (34.0-46.0); HGB 10.3 gm/dL (11.4-16.0); MCH 33.3 pg (25.0-35.0); MCHC 33.1 g/dL (31.0-37.0); MCV 100.5 fL (80.0-100.0); Mean Platelet Volume 7.6; Platelet Count 258 k/uL (150-450); RBC 3.09 m/uL (3.80-5.40); RDW 11.7 % (11.5-15.5); WBC 8.9 k/uL (3.8-10.6)
[2024-01-28 08:27] VITALS: BP 128/66; PULSE 72; RESP 17; TEMP 98.2
[2024-01-28 08:47] LABS: African American GFR (CKD) >90 (>60 ml/min/1.73 sqM); Anion Gap 8 mmol/L; Blood Urea Nitrogen 6 mg/dL (7-17); Calcium 8.3 mg/dL (8.4-10.2); Carbon Dioxide 20 mmol/L (22-30); Chloride 111 mmol/L (98-107); Glucose 96 mg/dL (74-99); Non-African American GFR(CKD) >90 (>60 ml/min/1.73 sqM); Potassium 3.6 mmol/L (3.5-5.1); Sodium 139 mmol/L (137-145)
--- NOTE | 2024-01-28 11:47 | P.PN ---
Subjective HISTORY OF PRESENT ILLNESS: This is a 43-year-old female with past medical history of gastroesophageal reflux disease, hyperlipidemia. We have been asked to evaluate the patient for atrial flutter versus sinus tachycardia and chest pain. Patient denies any previous cardiac history does not follow with a it manager. No history of diabetes, hypertension or hyperlipidemia. Patient states that she has been vomiting everything unable to keep any food or liquids down and her chest was hurting and she could not catch her breath. Per ER notes, patient came into the hospital due to altered mental status. Patient is an active tobacco smoker. She also uses marijuana occasionally last time was 2 days ago. Rare alcohol use. EKG sinus tachycardia 135 bpm Chest x-ray: No acute process CT of the abdomen and pelvis reveals no renal stones or hydronephrosis. No bowel obstruction or acute inflammatory process. WBC 16, hemoglobin 13.8, platelet count 397. Sodium 146, potassium 4.5, initial BUN 25 now 27, creatinine initially 3.26 and now 1.38. Lactic acid 6.3. Troponin 0.018, 0.178. TSH 0.841. hCG not detected. Urinalysis trace ketones, moderate blood. Home cardiac medications: None 01/27/2024 Patient examined this morning in the emergency room. Patient denies chest pain or pressure. Denies SOB. Denies any further episodes of vomiting. Vital signs are stable. Troponin 0.018. 0.178. 0.136. 01/28/2024 Patient is s/p cath revealing normal coronary arteries. Patient denies any chest pain or pressure. Denies any shortness of breath. She is refusing EGD today. Vital signs are stable. PHYSICAL EXAM: VITAL SIGNS: Reviewed. GENERAL: Well-developed in no acute distress. NECK: Supple. No JVD or thyromegaly LUNGS: Respirations even and unlabored. Lungs essentially clear to auscultation bilaterally. HEART: Regular rate and rhythm. S1 and S2 heard. EXTREMITIES: Normal range of motion. No clubbing or cyanosis. Peripheral pulses intact. No lower extremity edema ASSESSMENT: Elevated troponins, status post cardiac cath revealing normal coronary arteries Nausea and vomiting Sinus tachycardia Acute kidney injury Epigastric pain History of idiopathic gastroparesis PLAN: Patient is stable from a cardiac standpoint with no further inpatient recommendations We will sign off. Please reconsult if needed. Nurse practitioner note has been reviewed by physician. Signing provider agrees with the documented findings, assessment, and plan of care documented by BANANA LOADER as a scribe. Objective - Vital Signs Vital signs: Vital Signs Temp 98.2 F 01/28/24 08:07 Pulse 72 01/28/24 08:07 Resp 17 01/28/24 08:07 BP 128/66 01/28/24 08:07 Pulse Ox 98 01/28/24 08:07 FiO2 Intake & Output 01/27/24 01/28/24 01/28/24 18:59 06:59 18:59 Intake Total 956 118 Output Total 400 Balance 556 118 Weight 72.575 kg Intake: IV 600 Oral 356 118 Output: Urine 400 Other: # Voids 1 1 - Labs CBC & Chem 7: 01/28/24 07:53 01/28/24 07:53 Labs: Abnormal Lab Results - Last 24 Hours (Table) 01/28/24 01/28/24 Range/Units 07:53 07:53 RBC 3.09 L (3.80-5.40) m/uL Hgb 10.3 L (11.4-16.0) gm/dL Hct 31.1 L (34.0-46.0) % MCV 100.5 H (80.0-100.0) fL Chloride 111 H (98-107) mmol/L Carbon Dioxide 20 L (22-30) mmol/L BUN 6 L (7-17) mg/dL Calcium 8.3 L (8.4-10.2) mg/dL Microbiology - Last 24 Hours (Table) 01/26/24 07:13 Blood Culture - Preliminary Blood
--- NOTE | 2024-01-28 13:14 | P.PN ---
Subjective Progress Note Date: 01/28/24 CHIEF COMPLAINT: Abdominal pain and chest pain HISTORY OF PRESENT ILLNESS: Patient denies any abdominal pain. She tolerated regular diet without any further vomiting or hematemesis. Patient initially jameson eduled for EGD today for further evaluation of the hematemesis. Patient refused EGD. Reports that she is feeling better since starting the Protonix and reports having multiple EGDs in the past. Patient wants to be discharged today. hgb 10.3 PHYSICAL EXAM: VITAL SIGNS: Reviewed. GENERAL: Well-developed in no acute distress. ABDOMEN: Soft. Nondistended. Nontender. NEUROLOGIC: Alert and oriented. Cranial nerves II through XII grossly intact. ASSESSMENT: 1. Epigastric abdominal pain 2. Hematemesis 3. History of idiopathic gastroparesis with prior EGDs with Botox injections to the pylorus 4. Chest pain evaluated by cardiology PLAN: -Recommend EGD for evaluation of hematemesis. Patient has declined EGD. -Continue Protonix -Recommend patient follows up for EGD outpatient with either Dr. Fraser or her GI specialist Physician Game Preserve Manager note has been reviewed by physician. Signing provider agrees with the documented findings, assessment, and plan of care. Objective - Vital Signs Vital signs: Vital Signs Temp 98.2 F 01/28/24 08:07 Pulse 72 01/28/24 08:07 Resp 17 01/28/24 08:07 BP 128/66 01/28/24 08:07 Pulse Ox 98 01/28/24 08:07 FiO2 Intake & Output 01/27/24 01/28/24 01/28/24 18:59 06:59 18:59 Intake Total 956 118 Output Total 400 Balance 556 118 Weight 72.575 kg Intake: IV 600 Oral 356 118 Output: Urine 400 Other: # Voids 1 1 - Labs CBC & Chem 7: 01/28/24 07:53 01/28/24 07:53 Labs: Abnormal Lab Results - Last 24 Hours (Table) 01/28/24 01/28/24 Range/Units 07:53 07:53 RBC 3.09 L (3.80-5.40) m/uL Hgb 10.3 L (11.4-16.0) gm/dL Hct 31.1 L (34.0-46.0) % MCV 100.5 H (80.0-100.0) fL Chloride 111 H (98-107) mmol/L Carbon Dioxide 20 L (22-30) mmol/L BUN 6 L (7-17) mg/dL Calcium 8.3 L (8.4-10.2) mg/dL Microbiology - Last 24 Hours (Table) 01/26/24 07:13 Blood Culture - Preliminary Blood
--- NOTE | 2024-01-29 06:34 | P.DS ---
Providers Date of admission: 01/25/24 20:48 Attending physician: Etta Valentine Consults: 01/25/24 20:49 Consult Physician Routine Consulting Provider: Larry Amado Consult Reason/Comments: alta Do you want consulting provider notified?: Yes 01/26/24 06:36 Consult Physician Routine Consulting Provider: Kodak Flores Consult Reason/Comments: a flutter vs sinus tachycardia, chest pain Do you want consulting provider notified?: Yes, Notify in am 01/26/24 11:22 Consult Physician Routine Consulting Provider: Evaristo Fraser Consult Reason/Comments: abdominal pain, vomiting Do you want consulting provider notified?: Already Contacted Primary care physician: Stated None Hospital Course: Diagnoses: Patient presents with GI symptoms of abdominal pain and vomiting and constipation. Rule out bowel obstruction versus gastroenteritis versus others. Patient declined EGD Acute kidney injury, resolved Elevated troponin, most likely demand supply mismatch. Cardiogram showed normal Possible sepsis with fever and leukocytosis. Improved. Patient is discharged on antibiotics Severe dehydration and hypovolemia. Improved Atrial flutter versus sinus tachycardia. Per cardiology sinus tachycardia Anxiety History of GERD Hyperlipidemia Chronic back pain History of migraines History of peripheral neuropathy History of depression, not active issue and patient denies current suicidal or homicidal ideation Elevated lactic acid came back to normal Hospital course: This is a pleasant 43 years old female with past medical history of multiple medical problems including GERD, hyperlipidemia, chronic back pain, migraine, finger numbness is suspicious for peripheral neuropathy and depression. Presents because of feeling pain all over and has been vomiting for the last 2 days. Patient was admitted with signs symptoms of gastroenteritis not excluding other possibilities therefore surgery team were consulted who recommended EGD for the patient but she declined stating that she had previous EGD done for her and failed to reveal abnormality. She thinks she has been vomiting blood on admission because she ran out of her Protonix for 3 weeks. Other than that patient was treated with antibiotic Zosyn and normal saline and symptomatic treatment and patient showed interval improvement. She tolerates diet well no abdominal pain no more vomiting vomiting. She has good bowel movement. On admission also she has elevated troponin, loaf counter evaluated the patient and she had normal coronaries on cardiac cath and cardiology cleared her for discharge. EKG showing sinus tachycardia rather than arrhythmia per loaf counter. Acute kidney injury and severe dehydration with creatinine 3.2 came back to normal upon discharge. Her urine sample shows concentrated sample no signs symptoms of UTI. However patient will be discharged on antibiotic for her gastroenteritis. Patient denies any other new complaints and she is eager to go home today. Patient was cleared for discharge by all consultants including general surgery and loaf counter. Problems and management plan were discussed with the patient and he verbalized understanding and acceptance Patient was found stable and can be discharged home in guarded prognosis however he needs follow-up as an outpatient. Patient was instructed to follow up with PCP within one week and patient agrees Patient was instructed to follow-up with her surgeon Dr. Fraser in 1 week after discharge and to follow-up with loaf counter Dr. Montenegro in 2 weeks after discharge and she agrees Physical exam Gen: patient is a AAOx3, no distress CVS: S1-S2, RRR, no murmur Lungs: B/L CTA, no wheezing Abdomen: soft, no distention, no tenderness, positive bowel sounds Extremity: no leg edema or induration Time spent more than 35 minutes Patient Condition at Discharge: Serious Plan - Discharge Summary Discharge Rx Participant: No New Discharge Prescriptions: New Amoxic-Pot Clav 500-125 mg [Augmentin 500-125 mg] 1 tab PO Q12HR 7 Days #14 tab Pantoprazole [Protonix] 40 mg PO BID #60 tab Continue Ondansetron Odt [Zofran ODT] 8 mg PO BID PRN 10 Days #20 PRN Reason: Nausea Metoclopramide [Reglan] 10 mg PO QID PRN PRN Reason: Nausea And Vomiting Discontinued HYDROcodone/APAP 7.5-325MG [Sacred Heart 7.5-325] 1 tab PO BID PRN PRN Reason: Pain Discharge Medication List Metoclopramide [Reglan] 10 mg PO QID PRN 01/25/24 [History] Amoxic-Pot Clav 500-125 mg [Augmentin 500-125 mg] 1 tab PO Q12HR 7 Days #14 tab 01/28/24 [Rx] Ondansetron Odt [Zofran ODT] 8 mg PO BID PRN 10 Days #20 01/28/24 [Rx] Pantoprazole [Protonix] 40 mg PO BID #60 tab 01/28/24 [Rx] Follow up Appointment(s)/Referral(s): None,Stated [Primary Care Provider] - 1-2 days (Please find and follow with a primary. ) Kodak Flores MD [STAFF PHYSICIAN] - 2 Weeks (Transfer Knitter- Please call to schedule follow up. ) Evaristo Fraser MD [STAFF PHYSICIAN] - 1 Week (General surgeon for your anemia. Please call to schedule follow up as needed. ) Patient Instructions/Handouts: Dehydration (DC), Acute Kidney Injury (DC), Acute Nausea and Vomiting (DC) Activity/Diet/Wound Care/Special Instructions: Heart healthy diet Activity is restricted until you see your doctor we Would recommend to avoid NSAIDs like Motrin, ibuprofen, naproxen, or any other NSAIDs. Please talk to your doctor before starting taking pain medi cation. If you do not have a primary care doctor, we would recommend call your health insurance provider to find a nearby primary care doctor and call and make appointment in 1 week please Discharge Disposition: HOME SELF-CARE
--- NOTE | 2024-01-29 13:54 | CDI ---
Documentation Clarification Form Date: 01/29/2024 01:34:29 PM From: Aspen Tellez Admit Date: 01/25/2024 08:48:00 PM Patient Name: Francy Alston Visit Number: [id number] Discharge Date: 01/28/2024 11:11:00 AM ATTENTION: The Clinical Documentation Specialists (CDI) and [facility] Coding Staff appreciate your assistance in clarifying documentation. Please respond to the clarification below the line at the bottom and electronically sign. The CDI & [facility] Coding staff will review the response and follow-up if needed. Please note: Queries are made part of the Legal Health Record. If you have any questions, please contact the author of this message via ITS. Dr. Fernandez E Sheet Your patient has the documented symptom of Altered Mental Status in the ED Note 01/25/24. Additional clarification regarding the etiology/cause of this symptom is requested. History/Risk Factors: patient is a 43 year old female with a past history of multiple medical problems including: GERD, HLD, chronic back pain, migraines, possibly peripheral neuropathy, and depression. Clinical Indicators: per the ED note the patient presented to the ED with altered mental status, abdominal pain, nausea, anxiety, and states she has been vomiting blood. Patient has not taken her Protonix in 3 weeks. On work up she was found to have possible sepsis with fever and leukocytosis, GI symptoms of abdominal pain, vomiting, and constipation. Rule out bowel obstruction, vs gastroenteritis. She also had ALLYSON, severe dehydration, and atrial flutter vs sinus tachycardia. History and Physical states the patient is alert and oriented X 3 Labs: WBC 16.5, HGB 17.7, HCT 50.9, SODIUM 146, CO2 13, BUN 25, CREATININE 3.26, GLUCOSE 219, LACTIC ACID 6.3 Treatment: patient declined EGD, heart cath- normal coronaries, and normal left ventricular end-diastolic pressure, antibiotics zosyn, aggressive IV hydration, PPI Please clarify the etiology of the symptom of Altered Mental Status: [ x ] Metabolic Encephalopathy due to ALLYSON and dehydration , resovled [ ] Altered mental status [ ] Other condition (please specify) [ ] Unable to determine MTDD
== END 2024-01-28 11:11 | disposition home or self-care (01) | DRG 871 ==
LOC: EC 18:39 → 4SSUR 20:48 → 3SCARD 01-26 12:52
PROVIDERS: ADMIT Hospitalist; ATTEND Hospitalist
PROC: 4A023N7 Measurement of Cardiac Sampling and Pressure, Left Heart, Percutaneous Approach (ICD-10-PCS; principal; 2024-01-27 10:05)
PROC: B2111ZZ Fluoroscopy of Multiple Coronary Arteries using Low Osmolar Contrast (ICD-10-PCS; principal; 2024-01-27 10:05)
PROC: B41J1ZZ Fluoroscopy of Other Lower Arteries using Low Osmolar Contrast (ICD-10-PCS; principal; 2024-01-27 10:05)
DX: A41.9 Sepsis, unspecified organism (principal); G93.41 Metabolic encephalopathy; N17.9 Acute kidney failure, unspecified; E87.20 Acidosis, unspecified; K92.0 Hematemesis; K56.609 Unspecified intestinal obstruction, unspecified as to partial versus complete obstruction; E86.0 Dehydration; Z28.310 Unvaccinated for COVID-19; K59.00 Constipation, unspecified; K52.9 Noninfective gastroenteritis and colitis, unspecified; K31.84 Gastroparesis; G89.29 Other chronic pain; R00.0 Tachycardia, unspecified; R79.89 Other specified abnormal findings of blood chemistry; F41.9 Anxiety disorder, unspecified; F31.9 Bipolar disorder, unspecified; F17.200 Nicotine dependence, unspecified, uncomplicated; E86.1 Hypovolemia; G62.9 Polyneuropathy, unspecified; E78.5 Hyperlipidemia, unspecified; N18.30 Chronic kidney disease, stage 3 unspecified; Z53.29 Procedure and treatment not carried out because of patient's decision for other reasons; M54.9 Dorsalgia, unspecified; Z88.2 Allergy status to sulfonamides
CPT/HCPCS: 36415; 71046; 74176; 80048; 80053; 81001; 82140; 83605; 83735; 84100; 84145; 84443; 84484; 84703; 85025; 85027; 85610; 85730; 86140; 87040; 93005; 93306; 93458; 96361; 96365; 96367; 96375; 96376; 99291

== ENCOUNTER → 2024-04-01 | Outpatient (CLI) | payer MEDICARE ==
[2024-04-01 19:10] LABS: Basophils # (A) 0.04 X 10*3/uL (0.00-0.10); Basophils % (A) 0.5 %; Eosinophils # (A) 0.08 X 10*3/uL (0.04-0.35); Eosinophils % (A) 1.1 %; HCT 40.3 % (37.2-46.3); HGB 13.5 g/dL (12.0-15.0); Lymphocytes # (A) 3.21 X 10*3/uL (0.90-5.00); Lymphocytes % (A) 42.9 %; MCH 33.2 pg (27.0-32.0); MCHC 33.5 g/dL (32.0-37.0); Mean Platelet Volume 9.7 FL (9.5-12.2); Monocytes # (A) 0.54 X 10*3/uL (0.20-1.00); Monocytes % (A) 7.2 %; NRBC Per 100 WBC 0 X 10*3/uL (0.00-0.01); Neutrophils # (A) 3.61 X 10*3/uL (1.80-7.70); Neutrophils % (A) 48.2 %; Platelet Count 375 X 10*3/uL (140-440); RBC 4.07 X 10*6/uL (4.10-5.20); RDW 12.1 % (11.5-14.5); WBC 7.49 X 10*3/uL (4.50-10.00)
[2024-04-01 20:27] LABS: ALT 12 U/L (8-44); AST 15 U/L (13-35); Albumin 4.6 g/dL (3.8-4.9); Albumin/Globulin Ratio 1.77 Ratio (1.60-3.17); Alkaline Phosphatase 75 U/L (41-126); Blood Urea Nitrogen 6.9 mg/dL (9.0-27.0); Calcium 9.5 mg/dL (8.7-10.3); Carbon Dioxide 20.6 mmol/L (21.6-31.8); Chloride 104 mmol/L (96-109); Chol/HDL Ratio 7.45 Ratio; Globulin 2.6 g/dL (1.6-3.3); Glucose 102 mg/dL (70-110); LDL Cholesterol,Calculated 179.5 mg/dL (0.0-131.0); Potassium 3.9 mmol/L (3.5-5.5); Sodium 138 mmol/L (135-145); Total Bilirubin 0.5 mg/dL (0.3-1.2); Total Protein 7.2 g/dL (6.2-8.2)
--- NOTE | 2024-04-04 10:58 | MM ---
Reason for Exam: Screening (asymptomatic). Last mammogram was performed 9 year(s) and 9 month(s) ago. Patient History: Menarche at age 9. First Full-Term at age 20. Premenopausal. Hormonal Contraceptives for 2 months. Maternal aunt had breast cancer. Mother had breast cancer, age 49. Risk Values: Claudia 5 year model risk: 1.7%. NCI Lifetime model risk: 19.1%. Prior Study Comparison: 06/28/2014 Bilateral Screening Mammogram, [facility]. Tissue Density: There are scattered areas of fibroglandular density. Findings: Analyzed By CAD. Right breast: There is no suspicious group of microcalcifications or new suspicious mass. Left breast: Asymmetry left breast MLO view 10.1 cm the nipple posterior middle depth slightly superior and . Overall Assessment: Incomplete: need additional imaging evaluation, BI-RAD 0 Management: Diagnostic Mammogram of the left breast. [facility] will attempt to contact patient to return for supplemental views and ultrasound if indicated. Patient should continue monthly self-breast exams. A clinical breast exam by your physician is recommended on an annual basis. This exam should not preclude additional follow-up of suspicious palpable abnormalities. Note on Claudia scores and lifetime risk: 1. A Claudia score greater than 3% is considered moderate risk. If this is the case, consider specialist referral to assess eligibility for a risk reducing agent. 2. If overall lifetime risk for the development of breast cancer is 20% or higher, the patient may qualify for future screening with alternating mammogram and breast MRI. Electronically signed and approved by: Andrea Kearney DO
== END | disposition home or self-care (01) ==
LOC: RADMAMWWP 12:58
PROVIDERS: ATTEND Family Medicine
DX: Z12.31 Encounter for screening mammogram for malignant neoplasm of breast (principal); K31.84 Gastroparesis; Z80.3 Family history of malignant neoplasm of breast
CPT/HCPCS: 77067; 80053; 80061; 84443; 85025; 86803

== ENCOUNTER 2024-04-03 18:59 | Emergency (ER) | payer MEDICARE ==
--- NOTE | 2024-04-03 19:14 | ED ---
Abdominal Pain HPI - General Source: patient, RN notes reviewed Mode of arrival: wheelchair Limitations: no limitations <Yue Starks - Last Filed: 04/08/24 15:18> <Andrea Wilks - Last Filed: 04/11/24 07:20> - General Stated Complaint: Vomitting Time Seen by Provider: 04/03/24 19:13 - History of Present Illness Initial Comments: 44-year-old female presenting to the ER with a chief complaint of abdominal pain. She states she has been having generalized abdominal pain for the past 3 days. Reports most of her pain is localized to the left upper quadrant. She states today started to have emesis. She does report a small amount of bright red blood in emesis. She does not take any blood thinners. She denies fevers but endorses chills and night sweats. She also is reporting constipation. Patient does have a past medical history significant for gastroparesis. She has tried taking Reglan and Zofran outpatient without relief. Patient does admit to smoking marijuana daily. She denies any chest pain, shortness of breath, urinary complaints or peripheral edema. (Yue Starks) - Related Data Home Medications Medication Instructions Recorded Confirmed Metoclopramide [Reglan] 10 mg PO QID PRN 01/25/24 01/25/24 Previous Rx's Medication Instructions Recorded Amoxic-Pot Clav 500-125 mg 1 tab PO Q12HR 7 Days #14 tab 01/28/24 [Augmentin 500-125 mg] Ondansetron Odt [Zofran ODT] 8 mg PO BID PRN 10 Days #20 01/28/24 Pantoprazole [Protonix] 40 mg PO BID #60 tab 01/28/24 Promethazine [Phenergan] 25 mg PO Q6HR PRN #30 tablet 04/04/24 Allergies Allergy/AdvReac Type Severity Reaction Status Date / Time morphine Allergy Rash/Hives Verified 04/04/24 10:41 sulfamethoxazole Allergy Rash/Hives Verified 04/04/24 10:41 [From Bactrim] trimethoprim [From Bactrim] Allergy Rash/Hives Verified 04/04/24 10:41 Review of Systems ROS Other: All systems not noted in ROS Statement are negative. <Yue Starks - Last Filed: 04/08/24 15:18> ROS Other: All systems not noted in ROS Statement are negative. <Andrea Wilks Robert - Last Filed: 04/11/24 07:20> ROS Statement: Those systems with pertinent positive or pertinent negative responses have been documented in the HPI. Past Medical History Past Medical History: GERD/Reflux, Hyperlipidemia, Renal Disease Additional Past Medical History / Comment(s): Gastroparesis, gastritis, esophageal tears, chronic low back pain, herniated lower discs, bilateral wrist tendonitis with R side worse, R shoulder pain past couple months, numbness to bilateral hand fingers when first wakes, migraines, instructed to sleep with HOB up 6 inches d/t heart rate dropping with sleep, vertigo, pyelonephritis, History of Any Multi-Drug Resistant Organisms: None Reported Past Surgical History: Appendectomy, Tubal Ligation Additional Past Surgical History / Comment(s): Botox injection "mouth" of stomach-R/T SPASMS , EGDs, colonoscopy, vaginal cyst drained. Past Anesthesia/Blood Transfusion Reactions: No Reported Reaction Additional Past Anesthesia/Blood Transfusion Reaction / Comment(s): Never had blood transfusion. Past Psychological History: Anxiety, Bipolar, Depression Smoking Status: Current every day smoker Past Alcohol Use History: None Reported Past Drug Use History: Marijuana - Past Family History Mother Family Medical History: Cancer Additional Family Medical History / Comment(s): Mother is living. She has had breast cancer and 2 back surgeries. Father Family Medical History: No Reported History Additional Family Medical History / Comment(s): Father had ETOH abuse and was manic depressive. He after a fall where he fractured his back then "drank" himself to . Brother(s) Family Medical History: Neurologic Disorder Sister(s) Family Medical History: No Reported History Son(s) Family Medical History: No Reported History Daughter(s) Family Medical History: No Reported History <Yue Starks - Last Filed: 04/08/24 15:18> General Exam General appearance: alert, in no apparent distress Respiratory exam: Present: normal lung sounds bilaterally. Absent: respiratory distress, wheezes, rales, rhonchi, stridor Cardiovascular Exam: Present: regular rate, normal rhythm, normal heart sounds. Absent: systolic murmur, diastolic murmur, rubs, gallop, clicks GI/Abdominal exam: Present: soft, tenderness (Generalized with exquisitely tenderness LUQ), normal bowel sounds Neurological exam: Present: alert, oriented X3, CN II-XII intact Psychiatric exam: Present: normal affect, normal mood Skin exam: Present: warm, intact, normal color, diaphoretic (mild) <Yue Starks - Last Filed: 04/08/24 15:18> - General Exam Comments Initial Comments: Visual Physical Exam Vital signs reviewed General: Well-appearing, nontoxic, no acute distress. Head: Normocephalic, atraumatic Eyes: PERRLA, EOMI ENT: Airway patent Chest: Nonlabored breathing Skin: No visual rash, normal skin tone Neuro: Alert and oriented 3 Musculoskeletal: No gross abnormalities (Yue Starks) Course Vital Signs 04/03/24 04/03/24 04/04/24 19:20 23:12 00:54 Temperature 98.3 F Pulse Rate 105 H 92 89 Respiratory 18 17 18 Rate Blood Pressure 138/87 142/95 137/96 O2 Sat by Pulse 96 95 94 L Oximetry 04/04/24 04/04/24 02:13 03:44 Temperature Pulse Rate 73 80 Respiratory 19 18 Rate Blood Pressure 144/96 142/83 O2 Sat by Pulse 95 95 Oximetry Medical Decision Making - Lab Data Result diagrams: 04/03/24 22:54 04/04/24 00:21 <Yue Starks - Last Filed: 04/08/24 15:18> - Lab Data Result diagrams: 04/03/24 22:54 04/04/24 00:21 <Andrea Wilks - Last Filed: 04/11/24 07:20> - Medical Decision Making I performed the quick note portion of this chart. Electronically signed by Yue Starks PA-C Was pt. sent in by a medical professional or institution ([facility], [facility], urgent care, hospital, or [facility]...) When possible be specific @ -No Did you speak to anyone other than the patient for history (EMS, parent, family, police, friend...)? What history was obtained from this source @ -No Did you review nursing and triage notes (agree or disagree)? Why? @ -I reviewed and agree with nursing and triage notes Were old charts reviewed (outside hosp., previous admission, EMS record, old EKG, old radiological studies, urgent care reports/EKG's, [facility] records)? Report findings @ -No old charts were reviewed Differential Diagnosis (chest pain, altered mental status, abdominal pain women, abdominal pain men, vaginal bleeding, weakness, fever, dyspnea, syncope, headache, dizziness, GI bleed, back pain, seizure, CVA, palpatations, mental health, musculoskeletal)? @ -[Differential Abdominal Pain Women: Appendicitis, Cholecystitis, divertic ulosis, ischemic bowel, pancreatitis, hepatitis, UTI, gastroenteritis, AAA, incarcerated hernia, bowel obstruction, constipation, inflammatory bowel, hepatitis, peptic ulcer disease, splenic infarction, perforated viscus, vulvitis, ovarian torsion, PID, kidney stone, placenta abruption, this is not meant to be an all-inclusive list EKG interpreted by me (3pts min.). @ -None X-rays interpreted by me (1pt min.). @ -None done CT interpreted by me (1pt min.). @ -[CT abdomen pelvis considered but not performed as patient recently underwent CT scan. Lab work will be obtained. Patient agreeable. U/S interpreted by me (1pt. min.). @ -None done What testing was considered but not performed or refused? (CT, X-rays, U/S, labs)? Why? @ -None What meds were considered but not given or refused? Why? @ -None Did you discuss the management of the patient with other professionals (professionals i.e. , PA, REGISTERED NURSE CARD[facility]ASC[facility] ICU, lab, RT, psych nurse, social services aide, divorce lawyer, teacher, driver's license reviewing officer, hospice case manager)? Give summary @ -No Was smoking cessation discussed for >3mins.? @ -No Was critical care preformed (if so, how long)? @ -No Were there social determinants of health that impacted care today? How? (H omelessness, low income, unemployed, alcoholism, drug addiction, transportation, low edu. Level, literacy, decrease access to med. care, residential, rehab)? @ -No Was there de-escalation of care discussed even if they declined (Discuss DNR or withdrawal of care, Hospice)? DNR status @ -No What co-morbidities impacted this encounter? (DM, HTN, Smoking, COPD, CAD, Cancer, CVA, ARF, Chemo, Hep., AIDS, mental health diagnosis, sleep apnea, morbid obesity)? @ -Marijuana smoker Was patient admitted / discharged? Hospital course, mention meds given and route, prescriptions, significant lab abnormalities, going to OR and other pertinent info. @ -Discharge. 44-year-old female presented to the ER with a chief complaint of nausea, vomiting and abdominal pain. History and physical exam completed. Vitals stable. Laboratory studies obtained significant for white blood cell count of 11.1 with a left shift, Chloride 110, carbon dioxide 20 these findings to be related to nausea and vomiting. Urine hemorrhagic with blood and 18 red blood cells this is most likely contaminated from menstrual cycle. Symptomatic treatment in the ER with antiemetics, anagelsic and IV fluids. Upon reevalu ation, patient resting comfortably in exam room no active vomiting. Results discussed with patient, all questions answered. Advised close follow-up with PCP. Zofran prescribed. Strict return parameters discussed. Patient discharged stable condition. Patient verbally expressed understanding and agreement with care plan. Case discussed with ED attending, Dr. Wilks. Undiagnosed new problem with uncertain prognosis? @ -No Drug Therapy requiring intensive monitoring for toxicity (Heparin, Nitro, Insulin, Cardizem)? @ -No Were any procedures done? @ -No Diagnosis/symptom? @ -Nausea vomiting Acute, or Chronic, or Acute on Chronic? @ -Acute Uncomplicated (without systemic symptoms) or Complicated (systemic symptoms)? @ -Uncomplicated Side effects of treatment? @ -No Exacerbation, Progression, or Severe Exacerbation? @ -No Poses a threat to life or bodily function? How? (Chest pain, [place], [place], pneumonia, PE, COPD, DKA, ARF, appy, cholecystitis, CVA, Diverticulitis, Homicidal, Suicidal, threat to staff... and all critical care pts) @ -No (Yue Starks) SUPERVISORY NOTE: I have reviewed all documentation, results, and performed the MDM in its entirety, which constitutes a substantive portion of the visit. (Andrea Wilks) - Lab Data Lab Results 04/03/24 04/03/24 04/04/24 Range/Units 22:54 22:54 00:21 WBC 11.1 H (3.8-10.6) k/uL RBC 4.13 (3.80-5.40) m/uL Hgb 13.6 D (11.4-16.0) gm/dL Hct 40.5 (34.0-46.0) % MCV 98.2 (80.0-100.0) fL MCH 32.9 (25.0-35.0) pg MCHC 33.5 (31.0-37.0) g/dL RDW 12.2 (11.5-15.5) % Plt Count 420 (150-450) k/uL MPV 8.1 Neutrophils % 83 % Lymphocytes % 12 % Monocytes % 3 % Eosinophils % 1 % Basophils % 0 % Neutrophils # 9.2 H (1.3-7.7) k/uL Lymphocytes # 1.3 (1.0-4.8) k/uL Monocytes # 0.3 (0-1.0) k/uL Eosinophils # 0.1 (0-0.7) k/uL Basophils # 0.0 (0-0.2) k/uL Sodium 139 (137-145) mmol/L Potassium 4.1 (3.5-5.1) mmol/L Chloride 110 H (98-107) mmol/L Carbon Dioxide 20 L (22-30) mmol/L Anion Gap 9 mmol/L BUN 14 (7-17) mg/dL Creatinine 0.55 (0.52-1.04) mg/dL Est GFR (CKD-EPI)AfAm >90 (>60 ml/min/1.73 sqM) Est GFR (CKD-EPI)NonAf >90 (>60 ml/min/1.73 sqM) Glucose 122 H (74-99) mg/dL Plasma Lactic Acid Jose 1.4 (0.7-2.0) mmol/L Calcium 8.9 (8.4-10.2) mg/dL Total Bilirubin 0.6 (0.2-1.3) mg/dL AST 17 (14-36) U/L ALT 13 (4-34) U/L Alkaline Phosphatase 68 (38-126) U/L Total Protein 7.2 (6.3-8.2) g/dL Albumin 4.3 (3.5-5.0) g/dL Amylase 53 (30-110) U/L Lipase 31 (23-300) U/L Urine Color Urine Appearance (Clear) Urine pH (5.0-8.0) Ur Specific Welcome (1.001-1.035) Urine Protein (Negative) Urine Glucose (UA) (Negative) Urine Ketones (Negative) Urine Blood (Negative) Urine Nitrite (Negative) Urine Bilirubin (Negative) Urine Urobilinogen (<2.0) mg/dL Ur Leukocyte Esterase (Negative) Urine RBC (0-5) /hpf Ur Squamous Epith Cells (0-4) /hpf Amorphous Sediment (None) /hpf Urine Mucus (None) /hpf 04/04/24 Range/Units 02:17 WBC (3.8-10.6) k/uL RBC (3.80-5.40) m/uL Hgb (11.4-16.0) gm/dL Hct (34.0-46.0) % MCV (80.0-100.0) fL MCH (25.0-35.0) pg MCHC (31.0-37.0) g/dL RDW (11.5-15.5) % Plt Count (150-450) k/uL MPV Neutrophils % % Lymphocytes % % Monocytes % % Eosinophils % % Basophils % % Neutrophils # (1.3-7.7) k/uL Lymphocytes # (1.0-4.8) k/uL Monocytes # (0-1.0) k/uL Eosinophils # (0-0.7) k/uL Basophils # (0-0.2) k/uL Sodium (137-145) mmol/L Potassium (3.5-5.1) mmol/L Chloride (98-107) mmol/L Carbon Dioxide (22-30) mmol/L Anion Gap mmol/L BUN (7-17) mg/dL Creatinine (0.52-1.04) mg/dL Est GFR (CKD-EPI)AfAm (>60 ml/min/1.73 sqM) Est GFR (CKD-EPI)NonAf (>60 ml/min/1.73 sqM) Glucose (74-99) mg/dL Plasma Lactic Acid Jose (0.7-2.0) mmol/L Calcium (8.4-10.2) mg/dL Total Bilirubin (0.2-1.3) mg/dL AST (14-36) U/L ALT (4-34) U/L Alkaline Phosphatase (38-126) U/L Total Protein (6.3-8.2) g/dL Albumin (3.5-5.0) g/dL Amylase (30-110) U/L Lipase (23-300) U/L Urine Color Yellow Urine Appearance Turbid H (Clear) Urine pH 6.0 (5.0-8.0) Ur Specific Welcome 1.029 (1.001-1.035) Urine Protein 1+ H (Negative) Urine Glucose (UA) Trace H (Negative) Urine Ketones 2+ H (Negative) Urine Blood Moderate H (Negative) Urine Nitrite Negative (Negative) Urine Bilirubin Negative (Negative) Urine Urobilinogen <2.0 (<2.0) mg/dL Ur Leukocyte Esterase Negative (Negative) Urine RBC 18 H (0-5) /hpf Ur Squamous Epith Cells 1 (0-4) /hpf Amorphous Sediment Occasional H (None) /hpf Urine Mucus Many H (None) /hpf Disposition Is patient prescribed a controlled substance at d/c from ED?: No Time of Disposition: 03:09 <Yue Starks - Last Filed: 04/08/24 15:18> <Andrea Wilks - Last Filed: 04/11/24 07:20> Clinical Impression: Intractable nausea and vomiting Disposition: HOME SELF-CARE Condition: Stable Instructions (If sedation given, give patient instructions): Acute Nausea and Vomiting (ED) Additional Instructions: Follow-up with PCP. Return to the ER for any new or worsening concerns. Referrals: None,Stated [Primary Care Provider] - 1-2 days Forms: Area PCPs
[2024-04-03 19:31] VITALS: TEMP 98.3
[2024-04-03] MEDS: SODIUM CHLORIDE 0.9% 1,000 ML IV STA (22:54)
[2024-04-03] MEDS: ONDANSETRON 4 MG/2 ML VIAL IVP STA (22:55)
[2024-04-03] MEDS: MORPHINE SULFATE 2 MG/ML SYRINGE IVP ONE (22:56)
[2024-04-03 23:05] LABS: Basophils % (A) 0 %; Eosinophils # (A) 0.1 k/uL (0-0.7); Eosinophils % (A) 1 %; HCT 40.5 % (34.0-46.0); Lymphocytes # (A) 1.3 k/uL (1.0-4.8); Lymphocytes % (A) 12 %; MCH 32.9 pg (25.0-35.0); MCHC 33.5 g/dL (31.0-37.0); MCV 98.2 fL (80.0-100.0); Mean Platelet Volume 8.1; Monocytes # (A) 0.3 k/uL (0-1.0); Monocytes % (A) 3 %; Neutrophils # (A) 9.2 k/uL (1.3-7.7); Neutrophils % (A) 83 %; Platelet Count 420 k/uL (150-450); RBC 4.13 m/uL (3.80-5.40); RDW 12.2 % (11.5-15.5); WBC 11.1 k/uL (3.8-10.6)
[2024-04-03 23:06] LABS: HGB 13.6 gm/dL (11.4-16.0)
[2024-04-04] MEDS: HYDROmorphone 0.5 MG/0.5 ML SYRINGE IVP STA (00:50)
[2024-04-04 00:52] LABS: ALT 13 U/L (4-34); AST 17 U/L (14-36); African American GFR (CKD) >90 (>60 ml/min/1.73 sqM); Albumin 4.3 g/dL (3.5-5.0); Alkaline Phosphatase 68 U/L (38-126); Amylase 53 U/L (30-110); Anion Gap 9 mmol/L; Blood Urea Nitrogen 14 mg/dL (7-17); Calcium 8.9 mg/dL (8.4-10.2); Carbon Dioxide 20 mmol/L (22-30); Chloride 110 mmol/L (98-107); Glucose 122 mg/dL (74-99); Lipase 31 U/L (23-300); Non-African American GFR(CKD) >90 (>60 ml/min/1.73 sqM); Potassium 4.1 mmol/L (3.5-5.1); Sodium 139 mmol/L (137-145); Total Bilirubin 0.6 mg/dL (0.2-1.3); Total Protein 7.2 g/dL (6.3-8.2)
[2024-04-04] MEDS: METOCLOPRAMIDE 5 MG/ML 2 ML VIAL IVP STA ×2 (00:52→03:29)
[2024-04-04] MEDS: SODIUM CHLORIDE 0.9% 1,000 ML IV STA (02:13)
[2024-04-04 02:55] LABS: Amorphous Sediment,Urine Occasional /hpf; Appearance,Urine Turbid (Clear); Bilirubin,Urine Negative (Negative); Blood,Urine Moderate (Negative); Color,Urine Yellow; Glucose,Urine (UA) Trace (Negative); Ketones,Urine 2+ (Negative); Leukocyte Esterase,Urine Negative (Negative); Mucus,Urine Many /hpf; Nitrite,Urine Negative (Negative); Protein,Urine 1+ (Negative); RBC,Urine 18 /hpf (0-5); Specific Gravity,Urine 1.029 (1.001-1.035); Squamous Epithelial Cell,Urine 1 /hpf (0-4); Urobilinogen,Urine <2.0 mg/dL (<2.0)
[2024-04-04] MEDS: ONDANSETRON 4 MG/2 ML VIAL IVP STA (03:26)
[2024-04-04] MEDS: ACETAMINOPHEN TAB 325 MG TAB PO STA (03:35)
[2024-04-04 04:15] VITALS: BP 142/83; PULSE 80; RESP 18
== END 2024-04-04 03:45 | disposition home or self-care (01) ==
LOC: EC 18:59
DX: R11.2 Nausea with vomiting, unspecified (principal); F17.200 Nicotine dependence, unspecified, uncomplicated; F12.90 Cannabis use, unspecified, uncomplicated
CPT/HCPCS: 36415; 80053; 82150; 83605; 83690; 85025; 81001; 99284; 96374; 96375 ×2; 96361 ×2; 96376; J2765; J2405 ×2; J2270; J1170

== ENCOUNTER 2024-04-04 10:33 | Emergency (ER) | payer MEDICARE ==
[2024-04-04] MEDS: SODIUM CHLORIDE 0.9% 1,000 ML IV STA (11:13)
[2024-04-04] MEDS: HYDROmorphone 0.5 MG/0.5 ML SYRINGE IVP STA (11:15)
[2024-04-04] MEDS: KETOROLAC 15 MG/ML 1 ML VIAL IVP STA (11:15)
[2024-04-04] MEDS: PROCHLORPERAZINE INJ 10 MG/2 ML VIAL IVP STA (11:15)
[2024-04-04 11:22] LABS: Basophils % (A) 0 %; Eosinophils # (A) 0.1 k/uL (0-0.7); Eosinophils % (A) 1 %; HCT 38.1 % (34.0-46.0); HGB 12.7 gm/dL (11.4-16.0); Lymphocytes # (A) 2.1 k/uL (1.0-4.8); Lymphocytes % (A) 20 %; MCH 32.7 pg (25.0-35.0); MCHC 33.3 g/dL (31.0-37.0); MCV 98.4 fL (80.0-100.0); Mean Platelet Volume 8.2; Monocytes # (A) 0.4 k/uL (0-1.0); Monocytes % (A) 4 %; Neutrophils # (A) 7.7 k/uL (1.3-7.7); Neutrophils % (A) 74 %; Platelet Count 437 k/uL (150-450); RBC 3.87 m/uL (3.80-5.40); RDW 12.3 % (11.5-15.5); WBC 10.4 k/uL (3.8-10.6)
[2024-04-04 11:33] LABS: ALT 14 U/L (4-34); AST 18 U/L (14-36); African American GFR (CKD) >90 (>60 ml/min/1.73 sqM); Albumin 4.6 g/dL (3.5-5.0); Alkaline Phosphatase 81 U/L (38-126); Amylase 50 U/L (30-110); Anion Gap 12 mmol/L; Blood Urea Nitrogen 16 mg/dL (7-17); Calcium 9.6 mg/dL (8.4-10.2); Carbon Dioxide 20 mmol/L (22-30); Chloride 111 mmol/L (98-107); Glucose 138 mg/dL (74-99); Lipase 38 U/L (23-300); Non-African American GFR(CKD) >90 (>60 ml/min/1.73 sqM); Potassium 3.6 mmol/L (3.5-5.1); Sodium 143 mmol/L (137-145); Total Bilirubin 0.7 mg/dL (0.2-1.3); Total Protein 7.7 g/dL (6.3-8.2)
[2024-04-04 11:38] LABS: Amorphous Sediment,Urine Few /hpf; Appearance,Urine Turbid (Clear); Bilirubin,Urine Negative (Negative); Blood,Urine Moderate (Negative); Color,Urine Yellow; Glucose,Urine (UA) Negative (Negative); Ketones,Urine 3+ (Negative); Leukocyte Esterase,Urine Negative (Negative); Mucus,Urine Moderate /hpf; Nitrite,Urine Negative (Negative); Protein,Urine 1+ (Negative); RBC,Urine 18 /hpf (0-5); Specific Gravity,Urine 1.032 (1.001-1.035); Squamous Epithelial Cell,Urine 3 /hpf (0-4); Urobilinogen,Urine <2.0 mg/dL (<2.0)
--- NOTE | 2024-04-04 11:51 | ED ---
Nausea/Vomiting/Diarrhea HPI - General Chief complaint: Nausea/Vomiting/Diarrhea Stated complaint: Vomiting Time Seen by Provider: 04/04/24 10:43 Source: patient, RN notes reviewed Mode of arrival: ambulatory Limitations: no limitations - History of Present Illness Initial comments: This is a 44-year-old female who presents to the emergency department for abdominal pain, nausea, and vomiting. Patient was evaluated here yesterday for these symptoms and states that she did not feel better at the point of discharge home. Symptoms began about 3 days prior. She is taking Zofran and Reglan at home which are not effectively managing her symptoms. Abdominal pain is described as centralized. Denies any fever/chills. She has been constipated. MD complaint: nausea, vomiting, abdominal pain - Related Data Home Medications Medication Instructions Recorded Confirmed Metoclopramide [Reglan] 10 mg PO QID PRN 01/25/24 01/25/24 Previous Rx's Medication Instructions Recorded Amoxic-Pot Clav 500-125 mg 1 tab PO Q12HR 7 Days #14 tab 01/28/24 [Augmentin 500-125 mg] Ondansetron Odt [Zofran ODT] 8 mg PO BID PRN 10 Days #20 01/28/24 Pantoprazole [Protonix] 40 mg PO BID #60 tab 01/28/24 Promethazine [Phenergan] 25 mg PO Q6HR PRN #30 tablet 04/04/24 Allergies Allergy/AdvReac Type Severity Reaction Status Date / Time morphine Allergy Rash/Hives Verified 04/04/24 10:41 sulfamethoxazole Allergy Rash/Hives Verified 04/04/24 10:41 [From Bactrim] trimethoprim [From Bactrim] Allergy Rash/Hives Verified 04/04/24 10:41 Review of Systems ROS Statement: Those systems with pertinent positive or pertinent negative responses have been documented in the HPI. ROS Other: All systems not noted in ROS Statement are negative. Past Medical History Past Medical History: GERD/Reflux, Hyperlipidemia, Renal Disease Additional Past Medical History / Comment(s): Gastroparesis, gastritis, esophageal tears, chronic low back pain, herniated lower discs, bilateral wrist tendonitis with R side worse, R shoulder pain past couple months, numbness to bilateral hand fingers when first wakes, migraines, instructed to sleep with HOB up 6 inches d/t heart rate dropping with sleep, vertigo, pyelonephritis, History of Any Multi-Drug Resistant Organisms: None Reported Past Surgical History: Appendectomy, Tubal Ligation Additional Past Surgical History / Comment(s): Botox injection "mouth" of stomach-R/T SPASMS , EGDs, colonoscopy, vaginal cyst drained. Past Anesthesia/Blood Transfusion Reactions: No Reported Reaction Additional Past Anesthesia/Blood Transfusion Reaction / Comment(s): Never had blood transfusion. Past Psychological History: Anxiety, Bipolar, Depression Smoking Status: Current every day smoker Past Alcohol Use History: None Reported Past Drug Use History: Marijuana - Past Family History Mother Family Medical History: Cancer Additional Family Medical History / Comment(s): Mother is living. She has had breast cancer and 2 back surgeries. Father Family Medical History: No Reported History Additional Family Medical History / Comment(s): Father had ETOH abuse and was manic depressive. He after a fall where he fractured his back then "drank" himself to . Brother(s) Family Medical History: Neurologic Disorder Sister(s) Family Medical History: No Reported History Son(s) Family Medical History: No Reported History Daughter(s) Family Medical History: No Reported History General Exam Limitations: no limitations General appearance: alert, in no apparent distress Head exam: Present: atraumatic, normocephalic, normal inspection Respiratory exam: Present: normal lung sounds bilaterally. Absent: respiratory distress, wheezes, rales, rhonchi, stridor Cardiovascular Exam: Present: regular rate, normal rhythm, normal heart sounds. Absent: systolic murmur, diastolic murmur, rubs, gallop, clicks GI/Abdominal exam: Present: soft, tenderness (generalized), normal bowel sounds. Absent: distended Neurological exam: Present: alert, oriented X3, CN II-XII intact Psychiatric exam: Present: normal affect, normal mood Skin exam: Present: warm, dry, intact, normal color. Absent: rash Course Vital Signs 04/04/24 04/04/24 04/04/24 10:39 12:57 13:55 Temperature 98 F 98.0 F 98.7 F Pulse Rate 84 73 87 Respiratory 16 18 18 Rate Blood Pressure 135/88 127/78 130/63 O2 Sat by Pulse 97 96 96 Oximetry Medical Decision Making - Medical Decision Making This is a 44 year old female who presents to the emergency department for abdominal pain, nausea, and vomiting. Was pt. sent in by a medical professional or institution? @ -No Did you speak to anyone other than the patient for history? @ -No Did you review nursing and triage notes? @ -Yes, and I agree, it is accurate with regards to the patient's symptoms. Were old charts reviewed? @ -No Differential Diagnosis? @ -Differential Nausea and Vomiting: Gastroenteritis, cholecystitis, appendicitis, pancreatitis, migraine, benign positional vertigo, food borne illness, pyelonephritis, irritable bowel syndrome, influenza, Covid, GERD, incarcerated hernia, intestinal obstruction, this is not meant to be an all-inclusive list. EKG interpreted by me (3pts min.)? @ -EKG interpreted by me demonstrating the following: Sinus rhythm. Ventricular rate 84 bpm, VA interval 145 ms, QRS duration 92 ms, QTc 437 ms. X-rays interpreted by me (1pt min.)? @ -Not obtained CT interpreted by me (1pt min.)? @ -CT scan of the abdomen and pelvis obtained. My interpretation identifies no evidence of bowel wall thickening or free air. U/S interpreted by me (1pt. min.)? @ -Not obtained What testing was considered but not performed? (CT, X-rays, U/S, labs)? Why? @ -None What meds were considered but not given? Why? @ -None Did you discuss the management of the patient with other professionals? @ -No Did you reconcile home meds? @ -No Was smoking cessation discussed for >3mins.? @ -No Was critical care preformed (if so, how long)? @ -No Were there social determinants of health that impacted care today? How? (Homelessness, low income, unemployed, alcoholism, drug addiction, transportation, low edu. Level, literacy, decrease access to med. care, senior care, rehab)? @ -No Was there de-escalation of care discussed even if they declined? (Discuss DNR or withdrawal of care, Hospice)? @ -No What co-morbidities impacted this encounter? (DM, HTN, Smoking, COPD, CAD, Cancer, CVA, Hep., AIDS, mental health diagnosis, sleep apnea, morbid obesity)? @ -None Was patient admitted / discharged? @ -Discharged. Lab work unremarkable. Urinalysis negative for signs of infection. CT scan of the abdomen and pelvis demonstrates no acute process. Given that Zofran and Reglan were not effective we did a trial with IV fluids and Compazine, which she did find helpful. She was also given a dose of droperidol for nausea and vomiting. We got her symptoms to a tolerable level and she was able to tolerate oral intake. Prescription for Phenergan provided with dosing instructions reviewed. She is advised to slowly advance her diet as tolerated and remain well-hydrated. Patient discharged home in stable condition. Undiagnosed new problem with uncertain prognosis? @ -None Drug Therapy requiring intensive monitoring for toxicity (Heparin, Nitro, Insulin, Cardizem)? @ -None Were any procedures done? @ -None Diagnosis/symptom? @ -Abdominal pain, N/V Acute, or Chronic, or Acute on Chronic? @ -Acute Uncomplicated (without systemic symptoms) or Complicated (systemic symptoms)? @ -Uncomplicated Side effects of treatment? @ -None Exacerbation, Progression, or Severe Exacerbation] @ -Not applicable Poses a threat to life or bodily function? @ -No Return precautions reviewed in depth, the patient is instructed to return to the emergency department with any new, worsening, or concerning symptoms. Patient verbalized understanding. This case was discussed in detail with the attending ED physician, Dr. Shahid. Presentation, findings, and treatment plan discussed in detail as well. - Lab Data Result diagrams: 04/04/24 10:55 04/04/24 10:55 Lab Results 04/04/24 04/04/24 04/04/24 Range/Units 10:55 10:55 10:55 WBC 10.4 (3.8-10.6) k/uL RBC 3.87 (3.80-5.40) m/uL Hgb 12.7 (11.4-16.0) gm/dL Hct 38.1 (34.0-46.0) % MCV 98.4 (80.0-100.0) fL MCH 32.7 (25.0-35.0) pg MCHC 33.3 (31.0-37.0) g/dL RDW 12.3 (11.5-15.5) % Plt Count 437 (150-450) k/uL MPV 8.2 Neutrophils % 74 % Lymphocytes % 20 % Monocytes % 4 % Eosinophils % 1 % Basophils % 0 % Neutrophils # 7.7 (1.3-7.7) k/uL Lymphocytes # 2.1 (1.0-4.8) k/uL Monocytes # 0.4 (0-1.0) k/uL Eosinophils # 0.1 (0-0.7) k/uL Basophils # 0.0 (0-0.2) k/uL Sodium 143 (137-145) mmol/L Potassium 3.6 (3.5-5.1) mmol/L Chloride 111 H (98-107) mmol/L Carbon Dioxide 20 L (22-30) mmol/L Anion Gap 12 mmol/L BUN 16 (7-17) mg/dL Creatinine 0.50 L (0.52-1.04) mg/dL Est GFR (CKD-EPI)AfAm >90 (>60 ml/min/1.73 sqM) Est GFR (CKD-EPI)NonAf >90 (>60 ml/min/1.73 sqM) Glucose 138 H (74-99) mg/dL Plasma Lactic Acid Jose 1.1 (0.7-2.0) mmol/L Calcium 9.6 (8.4-10.2) mg/dL Magnesium 2.0 (1.6-2.3) mg/dL Total Bilirubin 0.7 (0.2-1.3) mg/dL AST 18 (14-36) U/L ALT 14 (4-34) U/L Alkaline Phosphatase 81 (38-126) U/L Total Protein 7.7 (6.3-8.2) g/dL Albumin 4.6 (3.5-5.0) g/dL Amylase 50 (30-110) U/L Lipase 38 (23-300) U/L Urine Color Urine Appearance (Clear) Urine pH (5.0-8.0) Ur Specific Byron (1.001-1.035) Urine Protein (Negative) Urine Glucose (UA) (Negative) Urine Ketones (Negative) Urine Blood (Negative) Urine Nitrite (Negative) Urine Bilirubin (Negative) Urine Urobilinogen (<2.0) mg/dL Ur Leukocyte Esterase (Negative) Urine RBC (0-5) /hpf Ur Squamous Epith Cells (0-4) /hpf Amorphous Sediment (None) /hpf Urine Mucus (None) /hpf Urine HCG, Qual (Not Detectd) 04/04/24 04/04/24 Range/Units 10:58 10:58 WBC (3.8-10.6) k/uL RBC (3.80-5.40) m/uL Hgb (11.4-16.0) gm/dL Hct (34.0-46.0) % MCV (80.0-100.0) fL MCH (25.0-35.0) pg MCHC (31.0-37.0) g/dL RDW (11.5-15.5) % Plt Count (150-450) k/uL MPV Neutrophils % % Lymphocytes % % Monocytes % % Eosinophils % % Basophils % % Neutrophils # (1.3-7.7) k/uL Lymphocytes # (1.0-4.8) k/uL Monocytes # (0-1.0) k/uL Eosinophils # (0-0.7) k/uL Basophils # (0-0.2) k/uL Sodium (137-145) mmol/L Potassium (3.5-5.1) mmol/L Chloride (98-107) mmol/L Carbon Dioxide (22-30) mmol/L Anion Gap mmol/L BUN (7-17) mg/dL Creatinine (0.52-1.04) mg/dL Est GFR (CKD-EPI)AfAm (>60 ml/min/1.73 sqM) Est GFR (CKD-EPI)NonAf (>60 ml/min/1.73 sqM) Glucose (74-99) mg/dL Plasma Lactic Acid Jose (0.7-2.0) mmol/L Calcium (8.4-10.2) mg/dL Magnesium (1.6-2.3) mg/dL Total Bilirubin (0.2-1.3) mg/dL AST (14-36) U/L ALT (4-34) U/L Alkaline Phosphatase (38-126) U/L Total Protein (6.3-8.2) g/dL Albumin (3.5-5.0) g/dL Amylase (30-110) U/L Lipase (23-300) U/L Urine Color Yellow Urine Appearance Turbid H (Clear) Urine pH 6.0 (5.0-8.0) Ur Specific Byron 1.032 (1.001-1.035) Urine Protein 1+ H (Negative) Urine Glucose (UA) Negative (Negative) Urine Ketones 3+ H (Negative) Urine Blood Moderate H (Negative) Urine Nitrite Negative (Negative) Urine Bilirubin Negative (Negative) Urine Urobilinogen <2.0 (<2.0) mg/dL Ur Leukocyte Esterase Negative (Negative) Urine RBC 18 H (0-5) /hpf Ur Squamous Epith Cells 3 (0-4) /hpf Amorphous Sediment Few H (None) /hpf Urine Mucus Moderate H (None) /hpf Urine HCG, Qual Not Detected (Not Detectd) - Radiology Data Radiology results: report reviewed, image reviewed Disposition Clinical Impression: Abdominal pain, Nausea and vomiting Disposition: HOME SELF-CARE Instructions (If sedation given, give patient instructions): Acute Nausea and Vomiting (ED), Abdominal Pain (ED) Additional Instructions: Return to the emergency department with any new, worsening, or concerning symptoms. Try taking the Phenergan up to every 6 hours to see if that helps with nausea and vomiting. Slowly advance your diet as tolerated and remain well- hydrated. Follow-up with your primary care provider in 1 to 2 days. Prescriptions: Promethazine [Phenergan] 25 mg PO Q6HR PRN #30 tablet PRN Reason: Nausea And Vomiting Is patient prescribed a controlled substance at d/c from ED?: No Referrals: None,Stated [Primary Care Provider] - 1-2 days Time of Disposition: 13:24
[2024-04-04] MEDS: FAMOTIDINE 20 MG/2 ML VIAL IV STA (12:59)
[2024-04-04] MEDS: droPERidol 5 MG/2 ML VIAL IVP ONE (13:01)
--- NOTE | 2024-04-04 13:10 | CT ---
EXAMINATION TYPE: CT abdomen pelvis w con DATE OF EXAM: 04/04/2024 COMPARISON: 01/26/2024 HISTORY: Abdominal pain CT DLP: 765.2 mGycm CONTRAST: CT scan of the abdomen and pelvis is performed without Oral Contrast and with IV Contrast, patient in jected with 100 ml mL of Isovue 300. FINDINGS: LUNG BASES-: No visible nodule. No infiltrate. LIVER/GB: No calcified gallstones. No space occupying hepatic lesion. Biliary tree is of normal ca liber. PANCREAS: No inflammation. No distinct mass. SPLEEN: No splenic enlargement. No lesion seen. ADRENALS: No nodule. No thickening. KIDNEYS/BLADDER: No hydronephrosis. No nephrolithiasis. No distinct renal mass. Urinary bladder g rossly unremarkable. BOWEL: Normal appendix. Normal bowel caliber. No inflammation. GENITAL ORGANS: No gross abnormality. LYMPH NODES: No greater than 1cm abdominal or pelvic lymph nodes are appreciated. AORTA: No significant abnormality. OSSEOUS STRUCTURES: No significant abnormality is seen. OTHER: No significant additional abnormality is seen. IMPRESSION: 1. No acute process seen at this time to account for the patient's symptoms.
[2024-04-04 13:29] VITALS: RESP 18
[2024-04-04] MEDS: ACET/COD 300 MG/30 MG STARTER PACK 6 TAB BTL PO STA (13:38)
[2024-04-04 14:16] VITALS: BP 130/63; PULSE 87; TEMP 98.7
== END 2024-04-04 14:00 | disposition home or self-care (01) ==
LOC: EC 10:33
DX: R11.2 Nausea with vomiting, unspecified (principal); R10.9 Unspecified abdominal pain; F17.200 Nicotine dependence, unspecified, uncomplicated; Z88.5 Allergy status to narcotic agent; Z88.2 Allergy status to sulfonamides; Z88.8 Allergy status to other drugs, medicaments and biological substances
CPT/HCPCS: 99284; 96374; 96375 ×4; 96361; 36415; 93005; 80053; 82150; 83605; 83690; 83735; 85025; 81001; 81025; 74177; J0780; J3490; J1885; J1170; Q9967; J1790

== ENCOUNTER → 2024-04-06 | Outpatient (CLI) | payer MEDICARE ==
--- NOTE | 2024-04-06 14:16 | MM ---
Reason for Exam: Additional evaluation requested from abnormal screening. Last screening mammogram was performed less than 1 month ago. Patient History: Menarche at age 9. First Full-Term at age 20. Premenopausal. Hormonal Contraceptives for 2 months. Maternal aunt had breast cancer. Mother had breast cancer, age 49. Risk Values: Claudia 5 year model risk: 1.7%. NCI Lifetime model risk: 19.1%. Prior Study Comparison: 06/28/2014 Bilateral Screening Mammogram, [facility]. 04/01/2024 Bilateral MG screening mammo w/o cad, [facility]. Tissue Density: Left: There are scattered areas of fibroglandular density. Findings: Analyzed By CAD. The questioned subtle asymmetric density middle to posterior depth on the left MLO view disperses on spot 3-D and 3 lateral views. It is compatible with benign superposition shadow. Overall Assessment: Benign, BI-RAD 2 Management: Screening Mammogram of both breasts in 1 year. . Results were given to the patient verbally at the time of exam. Patient should continue monthly self-breast exams. A clinical breast exam by your physician is recommended on an annual basis. This exam should not preclude additional follow-up of suspicious palpable abnormalities. Note on Claudia scores and lifetime risk: 1. A Claudia score greater than 3% is considered moderate risk. If this is the case, consider specialist referral to assess eligibility for a risk reducing agent. 2. If overall lifetime risk for the development of breast cancer is 20% or higher, the patient may qualify for future screening with alternating mammogram and breast MRI. Electronically signed and approved by: Oksana Lau M.D. Radiologist
== END | disposition home or self-care (01) ==
LOC: RADMAMWWP 13:39
PROVIDERS: ATTEND Internal Medicine
DX: R92.8 Other abnormal and inconclusive findings on diagnostic imaging of breast (principal); Z80.3 Family history of malignant neoplasm of breast
CPT/HCPCS: 77065; G0279; 77061

== ENCOUNTER 2024-11-27 00:45 | Emergency (ER) | payer MEDICARE ==
[2024-11-27 00:50] VITALS: RESP 20
--- NOTE | 2024-11-27 01:02 | ED ---
Abdominal Pain HPI - General Chief Complaint: Abdominal Pain Stated Complaint: ABD Pain Time Seen by Provider: 11/27/24 00:55 Source: patient, RN notes reviewed Mode of arrival: ambulatory Limitations: no limitations - History of Present Illness Initial Comments: This is a 44-year-old female with a history of chronic pain, gastroparesis, and GERD presenting to the emergency department for complaint of epigastric abdominal pain and persistent nausea and vomiting over the last day. Patient states that she has been unable to keep down liquids over the past few hours. States that pain in her abdomen feels similar as when she has had difficulties controlling her gastroparesis in the past and denies radiation of pain. She denies associated chest pain, shortness of breath, fevers chills, rhinorrhea, cough or congestion. States that she has taken Steger and Protonix with minimal relief. Patient had previous prescription of Zofran however states that her primary care provider has discontinued this prescription. She denies urinary or bowel habit complaints. Previous surgical abdominal history of appendectomy. - Related Data Home Medications Medication Instructions Recorded Confirmed Metoclopramide [Reglan] 10 mg PO QID PRN 01/25/24 01/25/24 Previous Rx's Medication Instructions Recorded Amoxic-Pot Clav 500-125 mg 1 tab PO Q12HR 7 Days #14 tab 01/28/24 [Augmentin 500-125 mg] Ondansetron Odt [Zofran ODT] 8 mg PO BID PRN 10 Days #20 01/28/24 Pantoprazole [Protonix] 40 mg PO BID #60 tab 01/28/24 Promethazine [Phenergan] 25 mg PO Q6HR PRN #30 tablet 04/04/24 Allergies Allergy/AdvReac Type Severity Reaction Status Date / Time morphine Allergy Rash/Hives Verified 11/27/24 00:49 sulfamethoxazole Allergy Rash/Hives Verified 11/27/24 00:49 [From Bactrim] trimethoprim [From Bactrim] Allergy Rash/Hives Verified 11/27/24 00:49 Review of Systems ROS Statement: Those systems with pertinent positive or pertinent negative responses have been documented in the HPI. ROS Other: All systems not noted in ROS Statement are negative. Past Medical History Past Medical History: GERD/Reflux, Hyperlipidemia, Renal Disease Additional Past Medical History / Comment(s): Gastroparesis, gastritis, esophageal tears, chronic low back pain, herniated lower discs, bilateral wrist tendonitis with R side worse, R shoulder pain past couple months, numbness to bilateral hand fingers when first wakes, migraines, instructed to sleep with HOB up 6 inches d/t heart rate dropping with sleep, vertigo, pyelonephritis, History of Any Multi-Drug Resistant Organisms: None Reported Past Surgical History: Appendectomy, Tubal Ligation Additional Past Surgical History / Comment(s): Botox injection "mouth" of stomach-R/T SPASMS , EGDs, colonoscopy, vaginal cyst drained. Past Anesthesia/Blood Transfusion Reactions: No Reported Reaction Additional Past Anesthesia/Blood Transfusion Reaction / Comment(s): Never had blood transfusion. Past Psychological History: Anxiety, Bipolar, Depression Smoking Status: Current every day smoker Past Alcohol Use History: None Reported Past Drug Use History: Marijuana - Past Family History Mother Family Medical History: Cancer Additional Family Medical History / Comment(s): Mother is living. She has had breast cancer and 2 back surgeries. Father Family Medical History: No Reported History Additional Family Medical History / Comment(s): Father had ETOH abuse and was manic depressive. He after a fall where he fractured his back then "drank" himself to . Brother(s) Family Medical History: Neurologic Disorder Sister(s) Family Medical History: No Reported History Son(s) Family Medical History: No Reported History Daughter(s) Family Medical History: No Reported History General Exam Limitations: no limitations ENT exam: Present: normal exam, mucous membranes moist Neck exam: Present: normal inspection. Absent: tenderness, meningismus, lymphadenopathy Respiratory exam: Present: normal lung sounds bilaterally. Absent: respiratory distress, wheezes, rales, rhonchi, stridor Cardiovascular Exam: Present: regular rate, normal rhythm, normal heart sounds. Absent: systolic murmur, diastolic murmur, rubs, gallop, clicks GI/Abdominal exam: Present: soft, tenderness (epigastric), normal bowel sounds. Absent: distended, guarding, rebound, rigid, pulsatile mass, hernia Extremities exam: Present: normal inspection, full ROM, normal capillary refill. Absent: tenderness, pedal edema, joint swelling, calf tenderness Back exam: Present: normal inspection Course Vital Signs 11/27/24 11/27/24 00:48 02:35 Temperature 98.2 F 98.0 F Pulse Rate 118 H 100 Respiratory 20 20 Rate Blood Pressure 146/83 130/80 O2 Sat by Pulse 96 97 Oximetry Medical Decision Making - Medical Decision Making Was pt. sent in by a medical professional or institution (, [facility], [employer], urgent care, hospital, or [facility]...) When possible be specific @ -No Did you speak to anyone other than the patient for history (EMS, parent, family, police, friend...)? What history was obtained from this source @ -No Did you review nursing and triage notes (agree or disagree)? Why? @ -I reviewed and agree with nursing and triage notes Were old charts reviewed (outside hosp., previous admission, EMS record, old EKG, old radiological studies, urgent care reports/EKG's, [facility] records)? Report findings @ -No old charts were reviewed Differential Diagnosis (chest pain, altered mental status, abdominal pain women, abdominal pain men, vaginal bleeding, weakness, fever, dyspnea, syncope, headache, dizziness, GI bleed, back pain, seizure, CVA, palpatations, mental health, musculoskeletal)? @ -Differential Abdominal Pain Women: Appendicitis, Cholecystitis, diverticulosis, ischemic bowel, pancreatitis, hepatitis, UTI, gastroenteritis, AAA, incarcerated hernia, bowel obstruction, constipation, inflammatory bowel, hepatitis, peptic ulcer disease, splenic infarction, perforated viscus, vulvitis, ovarian torsion, PID, kidney stone, placenta abruption, this is not meant to be an all-inclusive list EKG interpreted by me (3pts min.). @ -none X-rays interpreted by me (1pt min.). @ -None done CT interpreted by me (1pt min.). @ -None done U/S interpreted by me (1pt. min.). @ -None done What testing was considered but not performed or refused? (CT, X-rays, U/S, labs)? Why? @ -None What meds were considered but not given or refused? Why? @ -None Did you discuss the management of the patient with other professionals (professionals i.e. [facility], [employer], lab, RT, psych nurse, vp digital marketing social media and crm, manager of case, teacher, navigation officer, immigration case manager)? Give summary @ -No Was smoking cessation discussed for >3mins.? @ -No Was critical care preformed (if so, how long)? @ -No Were there social determinants of health that impacted care today? How? (Homele ssness, low income, unemployed, alcoholism, drug addiction, transportation, low edu. Level, literacy, decrease access to med. care, intermediate, rehab)? @ -No Was there de-escalation of care discussed even if they declined (Discuss DNR or withdrawal of care, Hospice)? DNR status @ -No What co-morbidities impacted this encounter? (DM, HTN, Smoking, COPD, CAD, Cancer, CVA, ARF, Chemo, Hep., AIDS, mental health diagnosis, sleep apnea, morbid obesity)? @ -None Was patient admitted / discharged? Hospital course, mention meds given and route, prescriptions, significant lab abnormalities, going to OR and other pertinent info. @ -Discharge. This is a 44-year-old female presenting with epigastric abdominal pain, nausea or vomiting. Tachycardic on arrival. Physical exam remarkable for epigastric tenderness to palpation with no signs of rebound tenderness or rigidity. Bowel sounds heard in all quadrants. Patient will be provided with fluids, antiemetics, pain medication pending laboratory evaluation. Patient's labs remarkable for leukocytosis of 12.4 likely reactive secondary to episode of emesis. CMP grossly within normal limits. On reevaluation after medication prescription patient notes that she is improved symptoms of nausea and abdominal pain however are still mildly present therefore is provided with dose of Zofran and oral Steger. On second evaluation patient that she was feeling better. At this time patient is stable for discharge with close follow-up outpatient [facility] care provider and GI specialist. Case discussed with Dr. Nickerson Undiagnosed new problem with uncertain prognosis? @ -No Drug Therapy requiring intensive monitoring for toxicity (Heparin, Nitro, Insulin, Cardizem)? @ -No Were any procedures done? @ -No Diagnosis/symptom? @ -Gastroparesis, chronic abdominal pain, nausea vomiting Acute, or Chronic, or Acute on Chronic? @ -Acute, acute on chronic Uncomplicated (without systemic symptoms) or Complicated (systemic symptoms)? @ -uncomplicated Side effects of treatment? @ -No Exacerbation, Progression, or Severe Exacerbation? @ -No Poses a threat to life or bodily function? How? (Chest pain, [place], [place], pneumonia, PE, COPD, DKA, ARF, appy, cholecystitis, CVA, Diverticulitis, Homicidal, Suicidal, threat to staff... and all critical care pts) @ -No - Lab Data Result diagrams: 11/27/24 01:06 11/27/24 01:06 Lab Results 11/27/24 11/27/24 Range/Units 01:06 01:06 WBC 12.4 H (3.8-10.6) k/uL RBC 4.16 (3.80-5.40) m/uL Hgb 13.8 (11.4-16.0) gm/dL Hct 40.6 (34.0-46.0) % MCV 97.6 (80.0-100.0) fL MCH 33.0 (25.0-35.0) pg MCHC 33.9 (31.0-37.0) g/dL RDW 12.6 (11.5-15.5) % Plt Count 448 (150-450) k/uL MPV 7.2 Neutrophils % 67 % Lymphocytes % 26 % Monocytes % 4 % Eosinophils % 2 % Basophils % 1 % Neutrophils # 8.4 H (1.3-7.7) k/uL Lymphocytes # 3.2 (1.0-4.8) k/uL Monocytes # 0.5 (0-1.0) k/uL Eosinophils # 0.2 (0-0.7) k/uL Basophils # 0.1 (0-0.2) k/uL Sodium 138 (137-145) mmol/L Potassium 3.9 (3.5-5.1) mmol/L Chloride 105 (98-107) mmol/L Carbon Dioxide 24 (22-30) mmol/L Anion Gap 9 mmol/L BUN 6 L (7-17) mg/dL Creatinine 0.60 (0.52-1.04) mg/dL Est GFR (CKD-EPI)AfAm >90 (>60 ml/min/1.73 sqM) Est GFR (CKD-EPI)NonAf >90 (>60 ml/min/1.73 sqM) Glucose 108 H (74-99) mg/dL Calcium 9.7 (8.4-10.2) mg/dL Total Bilirubin 0.4 (0.2-1.3) mg/dL AST 23 (14-36) U/L ALT 20 (4-34) U/L Alkaline Phosphatase 77 (38-126) U/L Total Protein 7.6 (6.3-8.2) g/dL Albumin 4.6 (3.5-5.0) g/dL Amylase 62 (30-110) U/L Lipase 42 (23-300) U/L Disposition Clinical Impression: Abdominal pain, Nausea and vomiting Disposition: HOME SELF-CARE Condition: Good Instructions (If sedation given, give patient instructions): Acute Nausea and V omiting (ED) Additional Instructions: Please return to the Emergency Department if symptoms worsen or any other concerns. Is patient prescribed a controlled substance at d/c from ED?: No Referrals: Nory Witt [facility] [Primary Care Provider] - 1-2 days Time of Disposition: 01:59
[2024-11-27] MEDS: SODIUM CHLORIDE 0.9% 1,000 ML IV STA (01:14)
[2024-11-27] MEDS: KETOROLAC 15 MG/ML 1 ML VIAL IVP STA (01:14)
[2024-11-27] MEDS: METOCLOPRAMIDE 5 MG/ML 2 ML VIAL IVP STA (01:14)
[2024-11-27] MEDS: PANTOPRAZOLE 40 MG/10 ML VIAL IVP STA (01:14)
[2024-11-27 01:17] LABS: Basophils # (A) 0.1 k/uL (0-0.2); Basophils % (A) 1 %; Eosinophils # (A) 0.2 k/uL (0-0.7); Eosinophils % (A) 2 %; HCT 40.6 % (34.0-46.0); HGB 13.8 gm/dL (11.4-16.0); Lymphocytes # (A) 3.2 k/uL (1.0-4.8); Lymphocytes % (A) 26 %; MCHC 33.9 g/dL (31.0-37.0); MCV 97.6 fL (80.0-100.0); Mean Platelet Volume 7.2; Monocytes # (A) 0.5 k/uL (0-1.0); Monocytes % (A) 4 %; Neutrophils # (A) 8.4 k/uL (1.3-7.7); Neutrophils % (A) 67 %; Platelet Count 448 k/uL (150-450); RBC 4.16 m/uL (3.80-5.40); RDW 12.6 % (11.5-15.5); WBC 12.4 k/uL (3.8-10.6)
[2024-11-27 01:31] LABS: ALT 20 U/L (4-34); AST 23 U/L (14-36); African American GFR (CKD) >90 (>60 ml/min/1.73 sqM); Albumin 4.6 g/dL (3.5-5.0); Alkaline Phosphatase 77 U/L (38-126); Amylase 62 U/L (30-110); Anion Gap 9 mmol/L; Blood Urea Nitrogen 6 mg/dL (7-17); Calcium 9.7 mg/dL (8.4-10.2); Carbon Dioxide 24 mmol/L (22-30); Chloride 105 mmol/L (98-107); Glucose 108 mg/dL (74-99); Lipase 42 U/L (23-300); Non-African American GFR(CKD) >90 (>60 ml/min/1.73 sqM); Potassium 3.9 mmol/L (3.5-5.1); Sodium 138 mmol/L (137-145); Total Bilirubin 0.4 mg/dL (0.2-1.3); Total Protein 7.6 g/dL (6.3-8.2)
[2024-11-27] MEDS: ONDANSETRON 4 MG/2 ML VIAL IVP STA (02:09)
[2024-11-27] MEDS: HYDROcodone/APAP 7.5-325MG 1 EACH TAB PO ONE (02:33)
[2024-11-27 02:37] VITALS: BP 130/80; PULSE 100; TEMP 98
== END 2024-11-27 02:37 | disposition home or self-care (01) ==
LOC: EC 00:45
DX: K31.84 Gastroparesis (principal); F17.200 Nicotine dependence, unspecified, uncomplicated; Z88.2 Allergy status to sulfonamides; Z88.1 Allergy status to other antibiotic agents
CPT/HCPCS: 99284 ×2; 96374 ×2; 96375 ×2; 96361 ×2; 36415; 80053; 82150; 83690; 85025; J2765; J2405; J1885; J2470

== ENCOUNTER 2025-02-04 15:04 | Observation (INO) | payer MEDICARE ==
--- NOTE | 2025-02-04 15:51 | ED ---
General Adult HPI - General Source: patient, RN notes reviewed Mode of arrival: ambulatory Limitations: no limitations <Geno Peters - Last Filed: 02/04/25 15:49> - General Source: patient, RN notes reviewed <Sonia Albarado - Last Filed: 02/05/25 00:22> - General Chief complaint: Nausea/Vomiting/Diarrhea Stated complaint: vomiting Time Seen by Provider: 02/04/25 15:20 - History of Present Illness Initial comments: Quick [id number] female history of gastroparesis presents emergency department for complaint of nausea, vomiting, and chills that started at 0700 this morning. She endorses left flank pain. Denies dysuria, hematuria, increase in urinary frequency or urgency. (Geno Peters) 44-year-old female with history of gastroparesis presenting to the emergency department for nausea/vomiting since this morning. States that around 7 AM this morning symptoms began and she has been unable to keep orals down since. Endorses chills and dark urine however denies urinary frequency or dysuria. Admits epigastric pain as well as left flank pain. States she had a UTI 2 weeks ago that was treated with antibiotics and symptoms have resolved. (Sonia Albarado) - Related Data Home Medications Medication Instructions Recorded Confirmed Metoclopramide [Reglan] 10 mg PO QID PRN 01/25/24 01/25/24 Previous Rx's Medication Instructions Recorded Amoxic-Pot Clav 500-125 mg 1 tab PO Q12HR 7 Days #14 tab 01/28/24 [Augmentin 500-125 mg] Ondansetron Odt [Zofran ODT] 8 mg PO BID PRN 10 Days #20 01/28/24 Pantoprazole [Protonix] 40 mg PO BID #60 tab 01/28/24 Promethazine [Phenergan] 25 mg PO Q6HR PRN #30 tablet 04/04/24 Allergies Allergy/AdvReac Type Severity Reaction Status Date / Time morphine Allergy Rash/Hives Verified 11/27/24 00:49 sulfamethoxazole Allergy Rash/Hives Verified 11/27/24 00:49 [From Bactrim] trimethoprim [From Bactrim] Allergy Rash/Hives Verified 11/27/24 00:49 Review of Systems ROS Other: All systems not noted in ROS Statement are negative. <Geno Peters - Last Filed: 02/04/25 15:49> ROS Other: All systems not noted in ROS Statement are negative. <Sonia Albarado - Last Filed: 02/05/25 00:22> ROS Statement: Those systems with pertinent positive or pertinent negative responses have been documented in the HPI. Past Medical History Past Medical History: GERD/Reflux, Hyperlipidemia, Renal Disease Additional Past Medical History / Comment(s): Gastroparesis, gastritis, esophageal tears, chronic low back pain, herniated lower discs, bilateral wrist tendonitis with R side worse, R shoulder pain past couple months, numbness to bilateral hand fingers when first wakes, migraines, instructed to sleep with HOB up 6 inches d/t heart rate dropping with sleep, vertigo, pyelonephritis, History of Any Multi-Drug Resistant Organisms: None Reported Past Surgical History: Appendectomy, Tubal Ligation Additional Past Surgical History / Comment(s): Botox injection "mouth" of stomach-R/T SPASMS , EGDs, colonoscopy, vaginal cyst drained. Past Anesthesia/Blood Transfusion Reactions: No Reported Reaction Additional Past Anesthesia/Blood Transfusion Reaction / Comment(s): Never had blood transfusion. Past Psychological History: Anxiety, Bipolar, Depression Smoking Status: Current every day smoker Past Alcohol Use History: None Reported Past Drug Use History: Marijuana - Past Family History Mother Family Medical History: Cancer Additional Family Medical History / Comment(s): Mother is living. She has had breast cancer and 2 back surgeries. Father Family Medical History: No Reported History Additional Family Medical History / Comment(s): Father had ETOH abuse and was manic depressive. He after a fall where he fractured his back then "drank" himself to . Brother(s) Family Medical History: Neurologic Disorder Sister(s) Family Medical History: No Reported History Son(s) Family Medical History: No Reported History Daughter(s) Family Medical History: No Reported History <Geno Peters - Last Filed: 02/04/25 15:49> General Exam Limitations: no limitations <Geno Peters - Last Filed: 02/04/25 15:49> General appearance: alert, in no apparent distress Head exam: Present: atraumatic, normocephalic, normal inspection Eye exam: Present: normal appearance, PERRL, EOMI. Absent: scleral icterus, conjunctival injection, periorbital swelling ENT exam: Present: normal exam, mucous membranes moist Neck exam: Present: normal inspection. Absent: tenderness, meningismus, lymphadenopathy Respiratory exam: Present: normal lung sounds bilaterally. Absent: respiratory distress, wheezes, rales, rhonchi, stridor Cardiovascular Exam: Present: regular rate, normal rhythm, normal heart sounds. Absent: systolic murmur, diastolic murmur, rubs, gallop, clicks GI/Abdominal exam: Present: soft, normal bowel sounds. Absent: distended, tenderness, guarding, rebound, rigid Back exam: Absent: CVA tenderness (R), CVA tenderness (L) Neurological exam: Present: alert, oriented X3 Psychiatric exam: Present: normal affect, normal mood Skin exam: Present: warm, dry, intact, normal color. Absent: rash <Sonia Albarado - Last Filed: 02/05/25 00:22> - General Exam Comments Initial Comments: Visual Physical Exam Vital signs reviewed General: Well-appearing, nontoxic, no acute distress. Head: Normocephalic, atraumatic Eyes: PERRLA, EOMI ENT: Airway patent Chest: Nonlabored breathing Skin: No visual rash, normal skin tone Neuro: Alert and oriented 3 Musculoskeletal: No gross abnormalities (Geno Peters) Course Vital Signs 02/04/25 02/04/25 02/04/25 15:23 18:57 20:59 Temperature 97.8 F 98 F 98.1 F Pulse Rate 109 H 99 93 Respiratory 20 18 Rate Blood Pressure 137/89 125/93 140/68 O2 Sat by Pulse 99 97 95 Oximetry 02/04/25 02/04/25 02/04/25 21:00 22:27 23:34 Temperature Pulse Rate 92 63 Respiratory 18 18 Rate Blood Pressure 140/68 150/81 104/58 O2 Sat by Pulse 96 96 94 L Oximetry Medical Decision Making <Geno Peters - Last Filed: 02/04/25 15:49> - Lab Data Result diagrams: 02/04/25 18:10 02/04/25 19:16 <Sonia Albarado - Last Filed: 02/05/25 00:22> - Medical Decision Making I completed the quick note portion of this chart signed Geno Peters PA-C (Geno Peters) Was pt. sent in by a medical professional or institution ([facility], [employer], urgent care, hospital, or penitentiary...) When possible be specific @ -No Did you speak to anyone other than the patient for history (EMS, parent, family, police, friend...)? What history was obtained from this source @ -No Did you review nursing and triage notes (agree or disagree)? Why? @ -I reviewed and agree with nursing and triage notes Were old charts reviewed (outside hosp., previous admission, EMS record, old EKG, old radiological studies, urgent care reports/EKG's, penitentiary records)? Report findings @ -No old charts were reviewed Differential Diagnosis (chest pain, altered mental status, abdominal pain women, abdominal pain men, vaginal bleeding, weakness, fever, dyspnea, syncope, headache, dizziness, GI bleed, back pain, seizure, CVA, palpatations, mental health, musculoskeletal)? @ -Differential Abdominal Pain Women: Appendicitis, Cholecystitis, diverticulosis, ischemic bowel, pancreatitis, hepatitis, UTI, gastroenteritis, AAA, incarcerated hernia, bowel obstruction, constipation, inflammatory bowel, hepatitis, peptic ulcer disease, splenic infarction, perforated viscus, vulvitis, ovarian torsion, PID, kidney stone, placenta abruption, this is not meant to be an all-inclusive list EKG interpreted by me (3pts min.). @ -None X-rays interpreted by me (1pt min.). @ -None done CT interpreted by me (1pt min.). @ -CT abdomen pelvis pending at time of admission U/S interpreted by me (1pt. min.). @ -None done What testing was considered but not performed or refused? (CT, X-rays, U/S, labs)? Why? @ -None What meds were considered but not given or refused? Why? @ -None Did you discuss the management of the patient with other professionals (codie irby i.e. [facility], [employer], lab, RT, psych nurse, health care social worker, primary substance abuse counselor, teacher, medical laboratory technical officer, caseworker)? Give summary @ -No Was smoking cessation discussed for >3mins.? @ -No Was critical care preformed (if so, how long)? @ -No Were there social determinants of health that impacted care today? How? (Homelessness, low income, unemployed, alcoholism, drug addiction, transportation, low edu. Level, literacy, decrease access to med. care, longterm, rehab)? @ -No Was there de-escalation of care discussed even if they declined (Discuss DNR or withdrawal of care, Hospice)? DNR status @ -No What co-morbidities impacted this encounter? (DM, HTN, Smoking, COPD, CAD, Cancer, CVA, ARF, Chemo, Hep., AIDS, mental health diagnosis, sleep apnea, morbid obesity)? @ -None Was patient admitted / discharged? Hospital course, mention meds given and route, prescriptions, significant lab abnormalities, going to OR and other pertinent info. @ - admitted. 44-year-old female with history of gastroparesis presenting for nausea/vomiting since this morning with associated abdominal pain. Patient is tachycardic, abdomen is soft and nontender to palpation. She is afebrile with no CVA tenderness. Patient was provided with IV fluids, Zofran, Ofirmev, and Dilaudid. Lab work remarkable for leukocytosis of 12.9, CO2 21. Urinalysis remarkable for 3+ ketones and 1+ protein. Patient is requesting additional doses of pain medication. CT abdomen pelvis pending at time of admission. Pain continues to be uncontrolled. Patient will be admitted to medicine for intractable abdominal pain and vomiting secondary to gastroparesis. Case was discussed with my ED attending Dr. Wilks. Undiagnosed new problem with uncertain prognosis? @ -No Drug Therapy requiring intensive monitoring for toxicity (Heparin, Nitro, Insulin, Cardizem)? @ -No Were any procedures done? @ -No Diagnosis/symptom? @ -Gastroparesis, intractable abdominal pain Acute, or Chronic, or Acute on Chronic? @ -Acute Uncomplicated (without systemic symptoms) or Complicated (systemic symptoms)? @ -Complicated Side effects of treatment? @ -No Exacerbation, Progression, or Severe Exacerbation? @ -No Poses a threat to life or bodily function? How? (Chest pain, [place], VA, pneumonia, PE, COPD, DKA, ARF, appy, cholecystitis, CVA, Diverticulitis, Homicidal, Suicidal, threat to staff... and all critical care pts) @ -Unlikely (Sonia Albarado) - Lab Data Lab Results 02/04/25 02/04/25 02/04/25 Range/Units 18:10 18:10 19:16 WBC 12.9 H (3.8-10.6) k/uL RBC 4.47 (3.80-5.40) m/uL Hgb 14.1 (11.4-16.0) gm/dL Hct 42.5 (34.0-46.0) % MCV 95.0 (80.0-100.0) fL MCH 31.5 (25.0-35.0) pg MCHC 33.1 (31.0-37.0) g/dL RDW 13.1 (11.5-15.5) % Plt Count 484 H (150-450) k/uL MPV 7.3 Neutrophils % 86 % Lymphocytes % 9 % Monocytes % 3 % Eosinophils % 1 % Basophils % 0 % Neutrophils # 11.1 H (1.3-7.7) k/uL Lymphocytes # 1.2 (1.0-4.8) k/uL Monocytes # 0.4 (0-1.0) k/uL Eosinophils # 0.2 (0-0.7) k/uL Basophils # 0.0 (0-0.2) k/uL Sodium 138 (137-145) mmol/L Potassium 4.3 (3.5-5.1) mmol/L Chloride 102 (98-107) mmol/L Carbon Dioxide 21 L (22-30) mmol/L Anion Gap 15 mmol/L BUN 15 (7-17) mg/dL Creatinine 0.66 (0.52-1.04) mg/dL Est GFR (CKD-EPI)AfAm >90 (>60 ml/min/1.73 sqM) Est GFR (CKD-EPI)NonAf >90 (>60 ml/min/1.73 sqM) Glucose 139 H (74-99) mg/dL Plasma Lactic Acid Jose 1.2 (0.7-2.0) mmol/L Calcium 10.4 H (8.4-10.2) mg/dL Total Bilirubin 0.7 (0.2-1.3) mg/dL AST 23 (14-36) U/L ALT 28 (4-34) U/L Alkaline Phosphatase 96 (38-126) U/L Total Protein 8.7 H (6.3-8.2) g/dL Albumin 5.1 H (3.5-5.0) g/dL Amylase 91 (30-110) U/L Lipase 32 (23-300) U/L Urine Color Urine Appearance (Clear) Urine pH (5.0-8.0) Ur Specific [place] (1.001-1.035) Urine Protein (Negative) Urine Glucose (UA) (Negative) Urine Ketones (Negative) Urine Blood (Negative) Urine Nitrite (Negative) Urine Bilirubin (Negative) Urine Urobilinogen (<2.0) mg/dL Ur Leukocyte Esterase (Negative) Urine RBC (0-5) /hpf Urine WBC (0-5) /hpf Ur Squamous Epith Cells (0-4) /hpf Hyaline Casts (0-2) /lpf Urine Mucus (None) /hpf Urine Yeast (Budding) (None) /hpf 02/04/25 Range/Units 20:58 WBC (3.8-10.6) k/uL RBC (3.80-5.40) m/uL Hgb (11.4-16.0) gm/dL Hct (34.0-46.0) % MCV (80.0-100.0) fL MCH (25.0-35.0) pg MCHC (31.0-37.0) g/dL RDW (11.5-15.5) % Plt Count (150-450) k/uL MPV Neutrophils % % Lymphocytes % % Monocytes % % Eosinophils % % Basophils % % Neutrophils # (1.3-7.7) k/uL Lymphocytes # (1.0-4.8) k/uL Monocytes # (0-1.0) k/uL Eosinophils # (0-0.7) k/uL Basophils # (0-0.2) k/uL Sodium (137-145) mmol/L Potassium (3.5-5.1) mmol/L Chloride (98-107) mmol/L Carbon Dioxide (22-30) mmol/L Anion Gap mmol/L BUN (7-17) mg/dL Creatinine (0.52-1.04) mg/dL Est GFR (CKD-EPI)AfAm (>60 ml/min/1.73 sqM) Est GFR (CKD-EPI)NonAf (>60 ml/min/1.73 sqM) Glucose (74-99) mg/dL Plasma Lactic Acid Jose (0.7-2.0) mmol/L Calcium (8.4-10.2) mg/dL Total Bilirubin (0.2-1.3) mg/dL AST (14-36) U/L ALT (4-34) U/L Alkaline Phosphatase (38-126) U/L Total Protein (6.3-8.2) g/dL Albumin (3.5-5.0) g/dL Amylase (30-110) U/L Lipase (23-300) U/L Urine Color Yellow Urine Appearance Cloudy H (Clear) Urine pH 5.5 (5.0-8.0) Ur Specific [place] 1.043 H (1.001-1.035) Urine Protein 1+ H (Negative) Urine Glucose (UA) Trace H (Negative) Urine Ketones 3+ H (Negative) Urine Blood Moderate H (Negative) Urine Nitrite Negative (Negative) Urine Bilirubin Negative (Negative) Urine Urobilinogen 2.0 (<2.0) mg/dL Ur Leukocyte Esterase Negative (Negative) Urine RBC 12 H (0-5) /hpf Urine WBC 2 (0-5) /hpf Ur Squamous Epith Cells 5 H (0-4) /hpf Hyaline Casts 4 H (0-2) /lpf Urine Mucus Few H (None) /hpf Urine Yeast (Budding) Rare H (None) /hpf Disposition <Geno Peters - Last Filed: 02/04/25 15:49> Time of Disposition: 00:18 <Sonia Albarado - Last Filed: 02/05/25 00:22> Clinical Impression: Gastroparesis Disposition: ADMITTED IP TO THIS HOSP Referrals: None,Stated [Primary Care Provider] - 1-2 days
[2025-02-04 18:22] LABS: Basophils % (A) 0 %; Eosinophils # (A) 0.2 k/uL (0-0.7); Eosinophils % (A) 1 %; HCT 42.5 % (34.0-46.0); HGB 14.1 gm/dL (11.4-16.0); Lymphocytes # (A) 1.2 k/uL (1.0-4.8); Lymphocytes % (A) 9 %; MCH 31.5 pg (25.0-35.0); MCHC 33.1 g/dL (31.0-37.0); Mean Platelet Volume 7.3; Monocytes # (A) 0.4 k/uL (0-1.0); Monocytes % (A) 3 %; Neutrophils # (A) 11.1 k/uL (1.3-7.7); Neutrophils % (A) 86 %; Platelet Count 484 k/uL (150-450); RBC 4.47 m/uL (3.80-5.40); RDW 13.1 % (11.5-15.5); WBC 12.9 k/uL (3.8-10.6)
[2025-02-04 18:58] VITALS: RESP 18
[2025-02-04] MEDS: HYDROmorphone 1 MG/ML 1 ML SYRINGE IVP STA ×2 (19:27→22:22)
[2025-02-04] MEDS: ONDANSETRON 4 MG/2 ML VIAL IVP STA (19:28)
[2025-02-04] MEDS: ACETAMINOPHEN IV (For NPO) 1,000 MG in EMPTY BAG 1 BAG IVPB STA (19:30)
[2025-02-04] MEDS: SODIUM CHLORIDE 0.9% 1,000 ML IV STA (19:30)
[2025-02-04 19:45] LABS: ALT 28 U/L (4-34); AST 23 U/L (14-36); African American GFR (CKD) >90 (>60 ml/min/1.73 sqM); Albumin 5.1 g/dL (3.5-5.0); Alkaline Phosphatase 96 U/L (38-126); Amylase 91 U/L (30-110); Anion Gap 15 mmol/L; Blood Urea Nitrogen 15 mg/dL (7-17); Calcium 10.4 mg/dL (8.4-10.2); Carbon Dioxide 21 mmol/L (22-30); Chloride 102 mmol/L (98-107); Glucose 139 mg/dL (74-99); Lipase 32 U/L (23-300); Non-African American GFR(CKD) >90 (>60 ml/min/1.73 sqM); Potassium 4.3 mmol/L (3.5-5.1); Sodium 138 mmol/L (137-145); Total Bilirubin 0.7 mg/dL (0.2-1.3); Total Protein 8.7 g/dL (6.3-8.2)
[2025-02-04 21:05] VITALS: TEMP 98.1
[2025-02-04] MEDS: METOCLOPRAMIDE 5 MG/ML 2 ML VIAL IVP STA (21:14)
[2025-02-04 21:52] LABS: Appearance,Urine Cloudy (Clear); Bilirubin,Urine Negative (Negative); Blood,Urine Moderate (Negative); Budding Yeast,Urine Rare /hpf; Color,Urine Yellow; Glucose,Urine (UA) Trace (Negative); Hyaline Casts,Urine 4 /lpf (0-2); Ketones,Urine 3+ (Negative); Leukocyte Esterase,Urine Negative (Negative); Mucus,Urine Few /hpf; Nitrite,Urine Negative (Negative); PH, Urine 5.5 (5.0-8.0); Protein,Urine 1+ (Negative); RBC,Urine 12 /hpf (0-5); Specific Gravity,Urine 1.043 (1.001-1.035); Squamous Epithelial Cell,Urine 5 /hpf (0-4); WBC,Urine 2 /hpf (0-5)
[2025-02-05] MEDS ORDERED: NALOXONE 0.4 MG/ML 1 ML VIAL IV PRN (00:18)
[2025-02-05] MEDS ORDERED: HYDROmorphone 0.5 MG/0.5 ML SYRINGE IVP PRN (00:20)
[2025-02-05] MEDS: SODIUM CHLORIDE 0.9% 1,000 ML IV SCH (00:55)
--- NOTE | 2025-02-05 00:57 | CT ---
EXAM: CT Abdomen and Pelvis With Intravenous Contrast CLINICAL HISTORY: ITS.REASON CT Reason: Abdominal pain TECHNIQUE: Axial computed tomography images of the abdomen and pelvis with intravenous contrast. CTDI is 21.3 mGy and DLP is 954.7 mGy-cm. This CT exam was performed using one or more of the following dose reduction techniques: automated exposure control, adjustment of the mA and/or kV according to patient size, and/or use of iterative reconstruction technique. COMPARISON: No relevant prior studies available. FINDINGS: Lung bases: Unremarkable. No mass. No consolidation. ABDOMEN: Liver: Unremarkable. No mass. Gallbladder and bile ducts: Unremarkable. No calcified stones. No ductal dilation. Pancreas: Unremarkable. No mass. No ductal dilation. Spleen: Unremarkable. No splenomegaly. Adrenals: Unremarkable. No mass. Kidneys and ureters: Unremarkable. No solid mass. No hydronephrosis. Stomach and bowel: Unremarkable. No obstruction. No mucosal thickening. PELVIS: Appendix: No findings to suggest acute appendicitis. Bladder: Unremarkable. No mass. Reproductive: Unremarkable as visualized. ABDOMEN and PELVIS: Intraperitoneal space: Unremarkable. No free air. No significant fluid collection. Bones/joints: Degenerative changes of the spine. No acute fracture. No dislocation. Soft tissues: Unremarkable. Vasculature: Atherosclerotic changes of the aorta. No abdominal aortic aneurysm. Lymph nodes: Unremarkable. No enlarged lymph nodes. IMPRESSION: No acute findings in the abdomen or pelvis.
[2025-02-05] MEDS: ONDANSETRON 4 MG/2 ML VIAL IVP PRN (03:10)
[2025-02-05] MEDS: HYDROmorphone 1 MG/ML 1 ML SYRINGE IVP PRN (03:10)
[2025-02-05] MEDS ORDERED: HYDROcodone/APAP 7.5-325MG 1 EACH TAB PO PRN (10:20)
[2025-02-05] MEDS ORDERED: ONDANSETRON ODT 8 MG TAB.RAPDIS PO PRN (10:20)
[2025-02-05 11:25] VITALS: BP 120/76; PULSE 68
[2025-02-05] MEDS ORDERED: ACETAMINOPHEN IV (For NPO) 1,000 MG in EMPTY BAG 1 BAG IVPB SCH (12:00)
--- NOTE | 2025-02-05 12:03 | P.HPIM ---
History of Present Illness Patient with history of gastroparesis came in with complaints of nausea vomiting and severe abdominal pain and flank pain secondary to gastroparesis. Patient was given pain medications was n.p.o. liquid diet was ordered patient symptoms are better today patient did well with symptomatic treatment. Patient had a gastroparesis after she had viral gastroenteritis led to bowel rupture. This history is as per the patient. Will advance her diet to liquid diet and if she can tolerate clear liquid diet patient will be discharged today. REVIEW OF SYSTEMS: All other systems are negative except those mentioned in the HPI PHYSICAL EXAMINATION: GENERAL: The patient is alert and oriented x3, not in any acute distress. Well developed, well nourished. HEENT: Pupils are round and equally reacting to light. EOMI. No scleral icterus. No conjunctival pallor. Normocephalic, atraumatic. No pharyngeal erythema. No thyromegaly. CARDIOVASCULAR: S1 and S2 present. No murmurs, rubs, or gallops. PULMONARY: Chest is clear to auscultation, no wheezing or crackles. ABDOMEN: Soft, nontender, nondistended, normoactive bowel sounds. No palpable organomegaly. MUSCULOSKELETAL: No joint swelling or deformity. EXTREMITIES: No cyanosis, clubbing, or pedal edema. NEUROLOGICAL: Gross neurological examination did not reveal any focal deficits. SKIN: No rashes. Assessment and plan Gastroparesis: Symptomatic treatment IV fluids advance diet as tolerated if she can tolerate liquid diet patient will be discharged today -Hyperlipidemia -Depression/bipolar disorder -Gastroesophageal reflux disease Patient will be discharged today for she can tolerate liquid diet Past Medical History Past Medical History: GERD/Reflux, Hyperlipidemia, Renal Disease Additional Past Medical History / Comment(s): Gastroparesis, gastritis, esophageal tears, chronic low back pain, herniated lower discs, bilateral wrist tendonitis with R side worse, R shoulder pain past couple months, numbness to bilateral hand fingers when first wakes, migraines, instructed to sleep with HOB up 6 inches d/t heart rate dropping with sleep, vertigo, pyelonephritis, History of Any Multi-Drug Resistant Organisms: None Reported Past Surgical History: Appendectomy, Tubal Ligation Additional Past Surgical History / Comment(s): Botox injection "mouth" of stomach-R/T SPASMS , EGDs, colonoscopy, vaginal cyst drained. Past Anesthesia/Blood Transfusion Reactions: No Reported Reaction Additional Past Anesthesia/Blood Transfusion Reaction / Comment(s): Never had blood transfusion. Past Psychological History: Anxiety, Bipolar, Depression Smoking Status: Current every day smoker Past Alcohol Use History: None Reported Past Drug Use History: Marijuana - Past Family History Mother Family Medical History: Cancer Additional Family Medical History / Comment(s): Mother is living. She has had breast cancer and 2 back surgeries. Father Family Medical History: No Reported History Additional Family Medical History / Comment(s): Father had ETOH abuse and was manic depressive. He after a fall where he fractured his back then "drank" himself to . Brother(s) Family Medical History: Neurologic Disorder Sister(s) Family Medical History: No Reported History Son(s) Family Medical History: No Reported History Daughter(s) Family Medical History: No Reported History Medications and Allergies Home Medications Medication Instructions Recorded Confirmed Type Ondansetron Odt [Zofran ODT] 8 mg PO BID PRN 10 Days #20 01/28/24 02/05/25 Rx HYDROcodone/APAP 7.5-325MG [[place] 1 tab PO BID PRN 02/05/25 02/05/25 History 7.5-325] Pantoprazole [Protonix] 40 mg PO DAILY 02/05/25 02/05/25 History Allergies Allergy/AdvReac Type Severity Reaction Status Date / Time morphine Allergy Rash/Hives Verified 02/05/25 09:12 sulfamethoxazole Allergy Rash/Hives Verified 02/05/25 09:12 [From Bactrim] trimethoprim [From Bactrim] Allergy Rash/Hives Verified 02/05/25 09:12 Physical Exam Vitals: Vital Signs Temp Pulse Pulse Resp BP BP Pulse Ox 02/05/25 11:23 98.1 F 68 18 120/76 96 02/05/25 10:00 60 18 107/58 94 L 02/05/25 09:00 58 L 18 115/69 95 02/05/25 07:56 63 18 101/63 94 L 02/05/25 02:00 72 18 106/61 92 L 02/04/25 23:34 63 18 104/58 94 L 02/04/25 22:27 92 18 150/81 96 02/04/25 21:00 140/68 96 02/04/25 20:59 98.1 F 93 140/68 95 02/04/25 18:57 98 F 99 18 125/93 97 02/04/25 15:23 97.8 F 109 H 20 137/89 99 Intake and Output 02/04/25 02/05/25 02/05/25 22:59 06:59 14:59 Other: Voiding Method Toilet Weight 74.843 kg Results CBC & Chem 7: 02/04/25 18:10 02/04/25 19:16 Labs: Abnormal Lab Results - Last 24 Hours (Table) 02/04/25 02/04/25 02/04/25 Range/Units 18:10 19:16 20:58 WBC 12.9 H (3.8-10.6) k/uL Plt Count 484 H (150-450) k/uL Neutrophils # 11.1 H (1.3-7.7) k/uL Carbon Dioxide 21 L (22-30) mmol/L Glucose 139 H (74-99) mg/dL Calcium 10.4 H (8.4-10.2) mg/dL Total Protein 8.7 H (6.3-8.2) g/dL Albumin 5.1 H (3.5-5.0) g/dL Urine Appearance Cloudy H (Clear) Ur Specific [place] 1.043 H (1.001-1.035) Urine Protein 1+ H (Negative) Urine Glucose (UA) Trace H (Negative) Urine Ketones 3+ H (Negative) Urine Blood Moderate H (Negative) Urine RBC 12 H (0-5) /hpf Ur Squamous Epith Cells 5 H (0-4) /hpf Hyaline Casts 4 H (0-2) /lpf Urine Mucus Few H (None) /hpf Urine Yeast (Budding) Rare H (None) /hpf
--- NOTE | 2025-02-05 12:03 | P.DS ---
Providers Date of admission: 02/05/25 00:16 Attending physician: Etta Valentine Primary care physician: Stated None Hospital Course: Patient with history of gastroparesis came in with complaints of nausea vomiting and severe abdominal pain and flank pain secondary to gastroparesis. Patient was given pain medications was n.p.o. liquid diet was ordered patient symptoms are better today patient did well with symptomatic treatment. Patient had a gastroparesis after she had viral gastroenteritis led to bowel rupture. This history is as per the patient. Will advance her diet to liquid diet and if she can tolerate clear liquid diet patient will be discharged today. REVIEW OF SYSTEMS: All other systems are negative except those mentioned in the HPI PHYSICAL EXAMINATION: GENERAL: The patient is alert and oriented x3, not in any acute distress. Well developed, well nourished. HEENT: Pupils are round and equally reacting to light. EOMI. No scleral icterus. No conjunctival pallor. Normocephalic, atraumatic. No pharyngeal erythema. No thyromegaly. CARDIOVASCULAR: S1 and S2 present. No murmurs, rubs, or gallops. PULMONARY: Chest is clear to auscultation, no wheezing or crackles. ABDOMEN: Soft, nontender, nondistended, normoactive bowel sounds. No palpable organomegaly. MUSCULOSKELETAL: No joint swelling or deformity. EXTREMITIES: No cyanosis, clubbing, or pedal edema. NEUROLOGICAL: Gross neurological examination did not reveal any focal deficits. SKIN: No rashes. Assessment and plan Gastroparesis: Symptomatic treatment IV fluids advance diet as tolerated if she can tolerate liquid diet patient will be discharged today -Hyperlipidemia -Depression/bipolar disorder -Gastroesophageal reflux disease Patient will be discharged today for she can tolerate liquid diet Plan - Discharge Summary New Discharge Prescriptions: No Action Ondansetron Odt [Zofran ODT] 8 mg PO BID PRN 10 Days #20 PRN Reason: Nausea HYDROcodone/APAP 7.5-325MG [[place] 7.5-325] 1 tab PO BID PRN PRN Reason: Pain Pantoprazole [Protonix] 40 mg PO DAILY Discharge Medication List Ondansetron Odt [Zofran ODT] 8 mg PO BID PRN 10 Days #20 01/28/24 [Rx] HYDROcodone/APAP 7.5-325MG [[place] 7.5-325] 1 tab PO BID PRN 02/05/25 [History] Pantoprazole [Protonix] 40 mg PO DAILY 02/05/25 [History] Follow up Appointment(s)/Referral(s): [facility] [place] MD [REFERRING] - 1 Week Discharge Disposition: HOME SELF-CARE
== END 2025-02-05 11:26 | disposition home or self-care (01) ==
LOC: EC 15:04 → 6NMEDSUR 02-05 00:16
PROVIDERS: ADMIT Hospitalist; ATTEND Hospitalist
DX: K31.84 Gastroparesis (principal); E78.5 Hyperlipidemia, unspecified; K21.9 Gastro-esophageal reflux disease without esophagitis; F31.9 Bipolar disorder, unspecified; D72.829 Elevated white blood cell count, unspecified; R00.0 Tachycardia, unspecified; F17.200 Nicotine dependence, unspecified, uncomplicated; Z79.899 Other long term (current) drug therapy; Z88.1 Allergy status to other antibiotic agents; Z88.2 Allergy status to sulfonamides; Z88.5 Allergy status to narcotic agent; Z87.19 Personal history of other diseases of the digestive system; Z87.440 Personal history of urinary (tract) infections
CPT/HCPCS: 96376 ×2; 96361 ×2; 96374; 96375; 99285; 36415; 80053; 82150; 83605; 83690; 85025; 81001; 74177; G0378; J2765; J2405 ×2; J1171 ×2; J0131; Q9967